=== PATIENT | male | born 1955 | race Caucasian/White ===

== ENCOUNTER → 2016-03-15 | Outpatient (CLI) | payer OTHER, MEDICARE ==
[2016-03-15 13:15] LABS: BASO % 0.3 %; BASO ABS # 0.03 K/uL (0-0.2); COMPLETE YES; EOS % 1.1 %; HEMATOCRIT 49.4 % (42-52); IG% 0.2 %; LYMPH % 17.7 %; MEAN CELL VOLUME 99.8 fL (80-100); MEAN CORPUSCULAR HEMOGLOBIN 33.3 pg (25-34); MEAN CORPUSCULAR HGB CONC 33.4 g/dl (32-36); MEAN PLATELET VOLUME 11.8 fL (7.4-10.4); MONO % 9.3 %; NEUT % 71.4 %; PLATELET COUNT 214 K/uL (130-400); RED BLOOD COUNT 4.95 M/uL (4.7-6.1); WHITE BLOOD COUNT 9.62 K/uL (4.8-10.8)
[2016-03-15 13:31] LABS: ALT/SGPT 24 U/L (12-78); AST/SGOT 15 U/L (15-37); BLOOD UREA NITROGEN 23 mg/dl (7-18); BUN/CREATININE RATIO 21.2 (10-20); CALCIUM 9.3 mg/dl (8.5-10.1); CARBON DIOXIDE 36 mmol/L (21-32); CHLORIDE 102 mmol/L (98-107); GLUCOSE 126 mg/dl (70-99); POTASSIUM 4.2 mmol/L (3.5-5.1); SODIUM 142 mmol/L (136-145); URIC ACID 3.3 mg/dl (2.6-7.2)
[2016-03-15 13:36] LABS: CHOLESTEROL 152 mg/dl (0-200); CHOLESTEROL/HDL RATIO 4.3; HDL CHOLESTEROL 35 mg/dl; LDL CHOLESTEROL CALCULATED 92 mg/dl; TRIGLYCERIDES 123 mg/dl (0-150); VERY LOW DENSITY LIPOPROT CALC 25 mg/dl
== END | disposition home or self-care (01) ==
LOC: C.LABMFLN 11:07
PROVIDERS: ATTEND Family Medicine
DX: I10 Essential (primary) hypertension (principal); I48.91 Unspecified atrial fibrillation; M10.9 Gout, unspecified; E78.00 Pure hypercholesterolemia, unspecified; Z12.5 Encounter for screening for malignant neoplasm of prostate

== ENCOUNTER → 2016-03-25 | Outpatient (CLI) | payer OTHER, MEDICARE ==
[2016-03-25 13:52] LABS: ESTIMATED AVERAGE GLUCOSE 146 mg/dl; HA1C FLAG Normal (Normal)
== END | disposition home or self-care (01) ==
LOC: C.LABMFLN 08:04
PROVIDERS: ATTEND Family Medicine
DX: R73.09 Other abnormal glucose (principal)

== ENCOUNTER → 2016-03-31 | Outpatient (CLI) | payer OTHER, MEDICARE ==
[2016-03-31 18:20] LABS: RATIO 76.5 mcg/mg (0-30.0)
== END | disposition home or self-care (01) ==
LOC: C.LABMFLN 11:16
PROVIDERS: ATTEND Family Medicine
DX: E11.9 Type 2 diabetes mellitus without complications (principal)

== ENCOUNTER → 2016-09-13 | Outpatient (CLI) | payer OTHER, MEDICARE ==
[2016-09-13 18:17] LABS: ALT/SGPT 22 U/L (12-78); AST/SGOT 16 U/L (15-37); BLOOD UREA NITROGEN 33 mg/dl (7-18); BUN/CREATININE RATIO 23.8 (10-20); CALCIUM 9.7 mg/dl (8.5-10.1); CARBON DIOXIDE 32 mmol/L (21-32); CHLORIDE 103 mmol/L (98-107); GLUCOSE 91 mg/dl (70-99); POTASSIUM 4.2 mmol/L (3.5-5.1); SODIUM 140 mmol/L (136-145)
[2016-09-13 18:18] LABS: BASO % 0.5 %; BASO ABS # 0.05 K/uL (0-0.2); COMPLETE YES; EOS % 1.4 %; HEMATOCRIT 45.1 % (42-52); IG% 0.1 %; LYMPH % 25.1 %; LYMPH ABS # 2.34 K/uL (1.2-3.4); MEAN CELL VOLUME 98.3 fL (80-100); MEAN CORPUSCULAR HEMOGLOBIN 32.7 pg (25-34); MEAN CORPUSCULAR HGB CONC 33.3 g/dl (32-36); MEAN PLATELET VOLUME 11.6 fL (7.4-10.4); MONO % 10.3 %; NEUT % 62.6 %; PLATELET COUNT 245 K/uL (130-400); RED BLOOD COUNT 4.59 M/uL (4.7-6.1); WHITE BLOOD COUNT 9.34 K/uL (4.8-10.8)
[2016-09-13 18:19] LABS: ALB/GLOB RATIO 1.1 (0.9-2); ALKALINE PHOSPHATASE 101 U/L (45-117); CHOLESTEROL 181 mg/dl (0-200); CHOLESTEROL/HDL RATIO 4.6; HDL CHOLESTEROL 39 mg/dl; LDL CHOLESTEROL CALCULATED 125 mg/dl; TRIGLYCERIDES 85 mg/dl (0-150); VERY LOW DENSITY LIPOPROT CALC 17 mg/dl
[2016-09-14 06:09] LABS: ESTIMATED AVERAGE GLUCOSE 126 mg/dl; HA1C FLAG Normal (Normal)
== END | disposition home or self-care (01) ==
LOC: C.LABMFLN 13:20
PROVIDERS: ATTEND Family Medicine
DX: I10 Essential (primary) hypertension (principal); M10.9 Gout, unspecified; E78.00 Pure hypercholesterolemia, unspecified; E11.9 Type 2 diabetes mellitus without complications; I48.91 Unspecified atrial fibrillation

== ENCOUNTER → 2017-03-25 | Outpatient (CLI) | payer OTHER, MEDICARE ==
[2017-03-25 12:31] LABS: BASO % 0.5 %; BASO ABS # 0.04 K/uL (0-0.2); EOS % 1.9 %; EOS ABS # 0.15 K/uL (0-0.5); HEMATOCRIT 47.1 % (42-52); HEMOGLOBIN 15.7 g/dL (14.0-18.0); IG# 0.02 K/uL (0.00-0.02); LYMPH % 20.9 %; LYMPH ABS # 1.66 K/uL (1.2-3.4); MEAN CELL VOLUME 98.1 fL (80-100); MEAN CORPUSCULAR HEMOGLOBIN 32.7 pg (25-34); MEAN CORPUSCULAR HGB CONC 33.3 g/dl (32-36); MEAN PLATELET VOLUME 12.3 fL (7.4-10.4); MONO % 10.3 %; MONO ABS # 0.82 K/uL (0.11-0.59); NEUT % 66.1 %; NEUT ABS # 5.24 K/uL (1.4-6.5); PLATELET COUNT 221 K/uL (130-400); RED CELL DISTRIBUTION WIDTH CV 15.9 % (11.5-14.5); WHITE BLOOD COUNT 7.93 K/uL (4.8-10.8)
[2017-03-25 13:03] LABS: ALBUMIN 3.9 gm/dl (3.4-5.0); ALT/SGPT 24 U/L (12-78); AST/SGOT 14 U/L (15-37); BLOOD UREA NITROGEN 31 mg/dl (7-18); CALCIUM 9.3 mg/dl (8.5-10.1); CARBON DIOXIDE 33 mmol/L (21-32); CREATININE 1.11 mg/dl (0.60-1.40); GLUCOSE 96 mg/dl (70-99); POTASSIUM 4.2 mmol/L (3.5-5.1); SODIUM 138 mmol/L (136-145)
[2017-03-25 13:08] LABS: HEMOGLOBIN A1C 5.6 % (4.5-5.6)
[2017-03-25 13:11] LABS: ALKALINE PHOSPHATASE 105 U/L (45-117); CHOLESTEROL 162 mg/dl (0-200); LDL CHOLESTEROL CALCULATED 109 mg/dl; TOTAL PROTEIN 7.5 gm/dl (6.4-8.2)
[2017-03-25 13:49] LABS: CREATININE RANDOM URINE < 13.0 mg/dl
== END | disposition home or self-care (01) ==
LOC: C.LABMFLN 08:56
PROVIDERS: ATTEND Family Medicine
DX: I10 Essential (primary) hypertension (principal); I48.91 Unspecified atrial fibrillation; E78.00 Pure hypercholesterolemia, unspecified; M10.9 Gout, unspecified; E11.9 Type 2 diabetes mellitus without complications; Z12.5 Encounter for screening for malignant neoplasm of prostate

== ENCOUNTER → 2017-09-28 | Outpatient (CLI) | payer OTHER, MEDICARE ==
[2017-09-28 12:59] LABS: HEMOGLOBIN A1C 5.7 % (4.5-5.6)
[2017-09-28 13:03] LABS: ALBUMIN 4.2 gm/dl (3.4-5.0); ALKALINE PHOSPHATASE 88 U/L (45-117); ALT/SGPT 23 U/L (12-78); AST/SGOT 20 U/L (15-37); BLOOD UREA NITROGEN 32 mg/dl (7-18); CALCIUM 9.7 mg/dl (8.5-10.1); CARBON DIOXIDE 33 mmol/L (21-32); CHOLESTEROL 167 mg/dl (0-200); CREATININE 1.22 mg/dl (0.60-1.40); GLUCOSE 92 mg/dl (70-99); LDL CHOLESTEROL CALCULATED 110 mg/dl; POTASSIUM 4.2 mmol/L (3.5-5.1); SODIUM 141 mmol/L (136-145); TOTAL PROTEIN 7.4 gm/dl (6.4-8.2); URIC ACID 3.3 mg/dl (2.6-7.2)
== END | disposition home or self-care (01) ==
LOC: C.LABMFLN 08:34
PROVIDERS: ATTEND Family Medicine
DX: I10 Essential (primary) hypertension (principal); I48.91 Unspecified atrial fibrillation; M10.9 Gout, unspecified; E78.00 Pure hypercholesterolemia, unspecified; E11.9 Type 2 diabetes mellitus without complications

== ENCOUNTER 2022-12-09 09:03 | Inpatient (IN) ==
[2022-12-09] MEDS ORDERED: methylPREDNISolone 125 MG/2 ML VIAL IV STA (09:25)
[2022-12-09] MEDS ORDERED: ALBUT/IPRATROP 3MG/0.5MG NEB 3 ML VIAL NEB STA (09:25)
--- NOTE | 2022-12-09 10:03 | Emergency Department Note ---
Impression & Plan Acute respiratory failure with hypoxia and hypercapnia, Community acquired pneumonia, Acute exacerbation of chronic obstructive airways disease, Congestive heart failure, Chronic a-fib ED Provider Note Provider: Jeovanny Hoyt MD DATE OF SERVICE: 12/09/2022 CHIEF COMPLAINT: Low oxygen levels, shortness of breath HISTORY OF PRESENT ILLNESS: Patient is a 67-year-old gentleman history of type 2 diabetes, A-fib on Xarelto, and COPD not on home oxygen presenting today noting over the past week has had increasing cough and some shortness of breath. Denies any chest pain or abdominal pain. No nausea vomiting or diarrhea reported. Chronic sinus drainage but denies any significant congestion or sore throat or fevers. No sick contacts reported. States he checked his oxygen this morning it was low and talked with his doctors office and came here for evaluation. Former smoker but did quit sometime ago. Uses a rescue inhaler but he denies any regular daily breathing treatments. Has been taking his medications. Has a little bit of swelling of the legs but denies significant increase or weight gain. Did take his medicines this morning including his Xarelto PAST MEDICAL HISTORY: As noted above MEDICATIONS: Reviewed home medication list at bedside SOCIAL HISTORY: , former smoker PHYSICAL EXAM: GENERAL: alert and oriented in no acute distress on stretcher Head: normocephalic and atraumatic EYES: No injection, discharge or icterus. NECK: Trachea midline. Supple. ENT: Mucous membranes pink and moist. Pharynx without erythema or exudate. LUNGS: Airway patent. No retractions. Breath sounds diminished with poor air exchange HEART: Regular rate and rhythm. No chest wall tenderness ABDOMEN: Soft and non-tender, without guarding or rebound. SKIN: Acyanotic, warm, dry, without rashes EXTREMITIES: Without tenderness or deformity with 1-2+ lower extremity edema. NEUROLOGICAL: No focal deficits. No aphasia. No facial droop or slurred speech. Ambulatory. EK beats minute atrial fibrillation. No acute ST segment elevation with some respiratory baseline artifact. QTc 462. No PVCs noted. CONTINUOUS CARDIAC MONITORING: was ordered and showed a heart rate of 90s-100s bpm in atrial fibrillation Patient's laboratory studies and imaging reviewed. Differential includes Reactive airway disease, pneumonia, pneumothorax, COPD, CHF, infections, cardiac ischemia, pulmonary embolism, musculoskeletal, gastrointestinal, as well as other pathologies. IMPRESSION/MEDICAL DECISION MAKING: States compliance with Xarelto and with his long-term anticoagulation lower suspicion for PE. Does have a history of CHF as well as COPD that may be contributing. Hypoxic into the 80s on room air and even on nasal cannula supplementation. Not moving much air and given this given a DuoNeb and a bit of steroids in case there is some COPD component. Respiratory viral panel sent. Lab work obtained. Chest x-ray obtained. Denies fevers but cannot exclude pneumonia based on history. My review the x-ray and radiology report consistent with cardiomegaly and p ossibly some pulmonary edema. There is some left mid to basilar findings questioning edema versus pneumonia. Patient not significantly anemic. Lactate is normal. White blood cell count of 10 is within normal limits. Some neutrophil predominance noted however. Procalcitonin sent. Still somewhat hypoxic given the question of some fluid overload we will give a dose of some Lasix and placed on BiPAP as he is still hypoxic. Given his hypoxia requiring noninvasive ventilation, will cover with antibiotics. VBG returns with a pH of 7.36 and a CO2 of 60. Not acidotic but slight elevated CO2. No findings of electrolyte abnormality or renal dysfunction. Troponin within normal limits. BNP somewhat elevated just over 200 but not severely so. Urinalysis negative. Not had real improvement with nebulizer here and again suspicion for a large component of COPD is diminishing my estimation. Again we will diurese lightly and started on BiPAP as well as cover with antibiotics. Discussed with him and his family the need for further care here at the hospital given his hypoxia. Respiratory viral panel returns negative. DIAGNOSIS: Hypoxic respiratory failure, acute CHF, COPD exacerbation acute, DISPOSITION: Hospitalist will evaluate Patient was agreeable with this plan. Critical Care I have personally spent 36 minutes of critical care time in the direct m anagement of this patient. This includes bedside care, interpretation of diagnostic studies, and testing, discussion with consultants, patient, and family members, and other required patient management activities. These 36 minutes is in excess of all separately billable procedures. 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 Venous insufficiency Surgical History H/O total hip arthroplasty History of vasectomy Previous back surgery Status post right hip replacement Family History Mother Coronary heart disease Hypertension Diabetes Denies family history of Ovarian cancer Prostate cancer Myocardial infarction Breast cancer Colorectal cancer Social History Smoking Status: Never smoker Age Started Using Tobacco: 10; Age Quit Using Tobacco: 48; Second Hand Exposure: Yes; Do You Dip or Chew Tobacco: No; Hx Alcohol Use: No (Four drinks per week) Hx Substance Use: No Preferred Language: Slovak Visual Impairment: No Limitations First Aid Teacher Required: No marital status: Current Living Situation: Family Current Living Situation Comment: spouse and brother in law current occupational status: disabled Feels Safe at Home: Yes Childhood Exposure to Second-Hand Smoke: Yes Diet: DASH caffeine: Yes Seatbelt Use: always Sunscreen Use: No Allergies Allergies Allergy/AdvReac Type Severity Reaction Status Date / Time dicyclomine [From Bentyl] Allergy Verified 11/17/22 07:57 Home Meds Previous Rx's Medication Instructions Recorded albuterol sulfate 90 mcg/actuation 2 inh inhalation Q4H PRN shortness 09/25/20 breath activated powder inhaler of breath or wheezing #1 ea blood sugar diagnostic ([employer] #100 ea 01/04/22 Ultra Test strips) lancets 33 gauge ([employer] Delica #100 ea 01/04/22 Lancets) allopurinol 300 mg tablet 300 mg PO BID #180 tabs 04/06/22 atorvastatin 10 mg tablet 10 mg PO QPM #90 tabs 04/06/22 diltiazem HCl 120 mg 120 mg PO DAILY #90 caps 04/06/22 capsule,extended release 24 hr furosemide 40 mg tablet 40 mg PO DAILY #90 tabs 04/06/22 lisinopril 40 mg tablet 40 mg PO DAILY #90 tabs 04/06/22 metformin 500 mg tablet 500 mg PO BID #180 tabs 04/06/22 metoprolol tartrate 100 mg tablet 100 mg PO BID #180 tabs 04/06/22 rivaroxaban 20 mg tablet (Xarelto) 20 mg PO DAILY #90 tabs 05/04/22 Results & Data (ED) Vital Signs Vital Signs - 24 hr 12/09/22 09:07 12/09/22 09:47 12/09/22 10:02 Temperature 36.8 C Temperature Source Temporal Artery Scan Pulse Rate 100 H 87 Pulse Rate [Apical] Pulse Rate from SpO2 Sensor Respiratory Rate 18 Respiratory Effort / Characteristics Respiratory Depth Respiratory Pattern Blood Pressure 130/85 Blood Pressure [Right Arm] Blood Pressure Mean 100 Blood Pressure Mean [Right Arm] Pulse Oximetry 72 L Oxygen Delivery Method Room Air Oxymask Oxygen Flow Rate 12 Fraction of Inspired Oxygen Sepsis Recent Fever Within 48 Hours No Sepsis New/Unexplained Change in Mental Status No Sepsis Action Taken by Nursing No Action Required Pulse Oximetry Post Tiitration 85 L 12/09/22 10:02 12/09/22 10:03 12/09/22 10:06 Temperature Temperature Source Pulse Rate 93 H Pulse Rate [Apical] 92 H Pulse Rate from SpO2 Sensor Respiratory Rate 24 24 Respiratory Effort / Characteristics Non-Labored Spontaneous Non-Labored Spontaneous Respiratory Depth Normal Respiratory Pattern Regular Blood Pressure Blood Pressure [Right Arm] 142/90 H Blood Pressure Mean Blood Pressure Mean [Right Arm] 107 Pulse Oximetry 89 L 89 L Oxygen Delivery Method Nebulizer Nebulizer Oxygen Flow Rate Fraction of Inspired Oxygen Sepsis Recent Fever Within 48 Hours Sepsis New/Unexplained Change in Mental Status Sepsis Action Taken by Nursing Pulse Oximetry Post Tiitration 12/09/22 09:29 12/09/22 09:30 12/09/22 09:59 Temperature Temperature Source Pulse Rate 94 H 77 97 H Pulse Rate [Apical] Pulse Rate from SpO2 Sensor 88 79 91 H Respiratory Rate 22 21 26 H Respiratory Effort / Characteristics Respiratory Depth Respiratory Pattern Blood Pressure Blood Pressure [Right Arm] Blood Pressure Mean Blood Pressure Mean [Right Arm] Pulse Oximetry 85 L 86 L 88 L Oxygen Delivery Method Oxymask Oxymask Nebulizer Oxygen Flow Rate 12 12 8 Fraction of Inspired Oxygen Sepsis Recent Fever Within 48 Hours Sepsis New/Unexplained Change in Mental Status Sepsis Action Taken by Nursing Pulse Oximetry Post Tiitration 12/09/22 09:59 12/09/22 10:00 12/09/22 10:00 Temperature Temperature Source Pulse Rate 87 Pulse Rate [Apical] Pulse Rate from SpO2 Sensor 88 Respiratory Rate 22 Respiratory Effort / Characteristics Respiratory Depth Respiratory Pattern Blood Pressure 147/80 H 142/90 H Blood Pressure [Right Arm] Blood Pressure Mean 116 99 Blood Pressure Mean [Right Arm] Pulse Oximetry 86 L Oxygen Delivery Method Oxymask Oxygen Flow Rate 12 Fraction of Inspired Oxygen Sepsis Recent Fever Within 48 Hours Sepsis New/Unexplained Change in Mental Status Sepsis Action Taken by Nursing Pulse Oximetry Post Tiitration 12/09/22 10:41 12/09/22 10:30 12/09/22 10:30 Temperature Temperature Source Pulse Rate 96 H 90 Pulse Rate [Apical] Pulse Rate from SpO2 Sensor 97 H Respiratory Rate 28 H 26 H Respiratory Effort / Characteristics Spontaneous Respiratory Depth Respiratory Pattern Blood Pressure 145/86 H Blood Pressure [Right Arm] Blood Pressure Mean 113 Blood Pressure Mean [Right Arm] Pulse Oximetry 94 87 L Oxygen Delivery Method Oxymask Oxygen Flow Rate 12 Fraction of Inspired Oxygen 50 Sepsis Recent Fever Within 48 Hours Sepsis New/Unexplained Change in Mental Status Sepsis Action Taken by Nursing Pulse Oximetry Post Tiitration Laboratory Data 12/09/22 09:50 12/09/22 09:50 Lab Results 12/09/22 12/09/22 12/09/22 Range/Units 09:50 09:50 09:50 WBC 10.08 (4.8-10.8) K/ul RBC 4.17 L (4.70-6.10) M/uL Hgb 13.8 L (14.0-18.0) g/dl Hct 41.8 L (42.0-52.0) % MCV 100.2 H (80.0-100.0) fL MCH 33.1 (25.0-34.0) pg MCHC 33.0 (32.0-36.0) g/dL RDW Std Deviation 58.8 H (36.4-46.3) fL RDW Coeff of Marce 15.9 H (11.5-14.5) % Plt Count 235 (130-400) K/uL MPV 11.2 (9.4-12.4) fL Immature Gran % (Auto) 0.5 % Neut % (Auto) 85.5 % Lymph % (Auto) 6.7 % Real % (Auto) 6.6 % Eos % (Auto) 0.4 % Baso % (Auto) 0.3 % Neut # (Auto) 8.61 H (1.40-6.50) K/uL Lymph # (Auto) 0.68 L (1.20-3.40) K/uL Real # (Auto) 0.67 H (0.11-0.59) K/uL Eos # (Auto) 0.04 (0.00-0.50) K/uL Baso # (Auto) 0.03 (0.00-0.20) K/uL Immature Gran # (Auto) 0.05 (0.01-0.20) K/uL PT 18.4 H (9.0-12.0) Seconds INR 1.7 H (0.9-1.1) APTT 51.5 H* (21.0-31.0) Seconds PTT Ratio 1.8 VBG pH (7.36-7.41) VBG pCO2 (38-50) mmHg VBG pO2 mmHg VBG HCO3 mmol/L VBG O2 Saturation % VBG Base Excess mEq/L Sodium (136-145) mmol/L Potassium (3.5-5.1) mmol/L Chloride (98-107) mmol/L Carbon Dioxide (21-32) mmol/L Anion Gap (3-11) BUN (6-23) mg/dl Creatinine (0.6-1.4) mg/dl Est Cr Clr Drug Dosing ml/min Est GFR ( Amer) ml/min Est GFR (Non-Af Amer) ml/min BUN/Creatinine Ratio (10-20) Glucose (70-99(Fasting)) mg/dl Lactate 1.2 (0.4-2.0) mmol/L Calcium (8.6-10.3) mg/dl Magnesium (1.7-2.4) mg/dl Total Bilirubin (0.2-1.0) mg/dl AST (13-39) U/L ALT (7-52) U/L Alkaline Phosphatase (34-104) U/L Troponin I High Sens (0-20) pg/ml B-Natriuretic Peptide (0-100) pg/ml Total Protein (6.0-8.3) gm/dl Albumin (3.4-5.0) gm/dl Globulin (2.5-4.0) gm/dl Albumin/Globulin Ratio (0.9-2) Procalcitonin (0-0.5) ng/ml Urine Color Urine Appearance (Clear) Urine pH (4.5-7.5) Ur Specific [place] (1.000-1.030) Urine Protein (Negative) Urine Glucose (UA) (Negative) Urine Ketones (Negative) Urine Blood (Negative) Urine Nitrite (Negative) Urine Bilirubin (Negative) Urine Urobilinogen (Negative) Ur Leukocyte Esterase (Negative) Adenovirus (PCR) (NotDetected) B. pertussis DNA (PCR) (NotDetected) B.parapertussis DNA PCR (NotDetected) C. pneumoniae DNA (PCR) (NotDetected) Coronavirus OC43 (PCR) (NotDetected) Coronavirus HKU1 (PCR) (NotDetected) Coronavirus 229E (PCR) (NotDetected) SARS-CoV-2 (PCR) (NotDetected) Coronavirus NL63 (PCR) (NotDetected) Human Metapneumovir PCR (NotDetected) Influenza Type A (PCR) (NotDetected) Influenza Type B (PCR) (NotDetected) M. pneumoniae (PCR) (NotDetected) Parainfluenza 1 (PCR) (NotDetected) Parainfluenza 2 (PCR) (NotDetected) Parainfluenza 3 (PCR) (NotDetected) Parainfluenza 4 (PCR) (NotDetected) RSV (PCR) (NotDetected) Entero/Rhino (PCR) (NotDetected) 12/09/22 12/09/22 12/09/22 Range/Units 09:50 09:50 09:50 WBC (4.8-10.8) K/ul RBC (4.70-6.10) M/uL Hgb (14.0-18.0) g/dl Hct (42.0-52.0) % MCV (80.0-100.0) fL MCH (25.0-34.0) pg MCHC (32.0-36.0) g/dL RDW Std Deviation (36.4-46.3) fL RDW Coeff of Marce (11.5-14.5) % Plt Count (130-400) K/uL MPV (9.4-12.4) fL Immature Gran % (Auto) % Neut % (Auto) % Lymph % (Auto) % Real % (Auto) % Eos % (Auto) % Baso % (Auto) % Neut # (Auto) (1.40-6.50) K/uL Lymph # (Auto) (1.20-3.40) K/uL Real # (Auto) (0.11-0.59) K/uL Eos # (Auto) (0.00-0.50) K/uL Baso # (Auto) (0.00-0.20) K/uL Immature Gran # (Auto) (0.01-0.20) K/uL PT (9.0-12.0) Seconds INR (0.9-1.1) APTT (21.0-31.0) Seconds PTT Ratio VBG pH (7.36-7.41) VBG pCO2 (38-50) mmHg VBG pO2 mmHg VBG HCO3 mmol/L VBG O2 Saturation % VBG Base Excess mEq/L Sodium 141 (136-145) mmol/L Potassium 3.8 (3.5-5.1) mmol/L Chloride 103 (98-107) mmol/L Carbon Dioxide 32 (21-32) mmol/L Anion Gap 6 (3-11) BUN 28 H (6-23) mg/dl Creatinine 0.98 (0.6-1.4) mg/dl Est Cr Clr Drug Dosing 103.9 ml/min Est GFR ( Amer) 90.8 ml/min Est GFR (Non-Af Amer) 78.4 ml/min BUN/Creatinine Ratio 28.6 H (10-20) Glucose 137 H (70-99(Fasting)) mg/dl Lactate (0.4-2.0) mmol/L Calcium 9.5 (8.6-10.3) mg/dl Magnesium 2.0 (1.7-2.4) mg/dl Total Bilirubin 1.3 H (0.2-1.0) mg/dl AST 15 (13-39) U/L ALT 15 (7-52) U/L Alkaline Phosphatase 99 (34-104) U/L Troponin I High Sens 7.5 (0-20) pg/ml B-Natriuretic Peptide 212 H (0-100) pg/ml Total Protein 7.2 (6.0-8.3) gm/dl Albumin 3.8 (3.4-5.0) gm/dl Globulin 3.4 (2.5-4.0) gm/dl Albumin/Globulin Ratio 1.1 (0.9-2) Procalcitonin 0.07 (0-0.5) ng/ml Urine Color Urine Appearance (Clear) Urine pH (4.5-7.5) Ur Specific [place] (1.000-1.030) Urine Protein (Negative) Urine Glucose (UA) (Negative) Urine Ketones (Negative) Urine Blood (Negative) Urine Nitrite (Negative) Urine Bilirubin (Negative) Urine Urobilinogen (Negative) Ur Leukocyte Esterase (Negative) Adenovirus (PCR) (NotDetected) B. pertussis DNA (PCR) (NotDetected) B.parapertussis DNA PCR (NotDetected) C. pneumoniae DNA (PCR) (NotDetected) Coronavirus OC43 (PCR) (NotDetected) Coronavirus HKU1 (PCR) (NotDetected) Coronavirus 229E (PCR) (NotDetected) SARS-CoV-2 (PCR) (NotDetected) Coronavirus NL63 (PCR) (NotDetected) Human Metapneumovir PCR (NotDetected) Influenza Type A (PCR) (NotDetected) Influenza Type B (PCR) (NotDetected) M. pneumoniae (PCR) (NotDetected) Parainfluenza 1 (PCR) (NotDetected) Parainfluenza 2 (PCR) (NotDetected) Parainfluenza 3 (PCR) (NotDetected) Parainfluenza 4 (PCR) (NotDetected) RSV (PCR) (NotDetected) Entero/Rhino (PCR) (NotDetected) 12/09/22 12/09/22 12/09/22 Range/Units 10:08 10:12 10:25 WBC (4.8-10.8) K/ul RBC (4.70-6.10) M/uL Hgb (14.0-18.0) g/dl Hct (42.0-52.0) % MCV (80.0-100.0) fL MCH (25.0-34.0) pg MCHC (32.0-36.0) g/dL RDW Std Deviation (36.4-46.3) fL RDW Coeff of Marce (11.5-14.5) % Plt Count (130-400) K/uL MPV (9.4-12.4) fL Immature Gran % (Auto) % Neut % (Auto) % Lymph % (Auto) % Real % (Auto) % Eos % (Auto) % Baso % (Auto) % Neut # (Auto) (1.40-6.50) K/uL Lymph # (Auto) (1.20-3.40) K/uL Real # (Auto) (0.11-0.59) K/uL Eos # (Auto) (0.00-0.50) K/uL Baso # (Auto) (0.00-0.20) K/uL Immature Gran # (Auto) (0.01-0.20) K/uL PT (9.0-12.0) Seconds INR (0.9-1.1) APTT (21.0-31.0) Seconds PTT Ratio VBG pH 7.36 (7.36-7.41) VBG pCO2 60 H (38-50) mmHg VBG pO2 31 mmHg VBG HCO3 34 mmol/L VBG O2 Saturation < 60.0 % VBG Base Excess 6.5 mEq/L Sodium (136-145) mmol/L Potassium (3.5-5.1) mmol/L Chloride (98-107) mmol/L Carbon Dioxide (21-32) mmol/L Anion Gap (3-11) BUN (6-23) mg/dl Creatinine (0.6-1.4) mg/dl Est Cr Clr Drug Dosing ml/min Est GFR ( Amer) ml/min Est GFR (Non-Af Amer) ml/min BUN/Creatinine Ratio (10-20) Glucose (70-99(Fasting)) mg/dl Lactate (0.4-2.0) mmol/L Calcium (8.6-10.3) mg/dl Magnesium (1.7-2.4) mg/dl Total Bilirubin (0.2-1.0) mg/dl AST (13-39) U/L ALT (7-52) U/L Alkaline Phosphatase (34-104) U/L Troponin I High Sens (0-20) pg/ml B-Natriuretic Peptide (0-100) pg/ml Total Protein (6.0-8.3) gm/dl Albumin (3.4-5.0) gm/dl Globulin (2.5-4.0) gm/dl Albumin/Globulin Ratio (0.9-2) Procalcitonin (0-0.5) ng/ml Urine Color Yellow Urine Appearance Clear (Clear) Urine pH 5.0 (4.5-7.5) Ur Specific [place] 1.007 (1.000-1.030) Urine Protein Negative (Negative) Urine Glucose (UA) Negative (Negative) Urine Ketones Negative (Negative) Urine Blood Negative (Negative) Urine Nitrite Negative (Negative) Urine Bilirubin Negative (Negative) Urine Urobilinogen Negative (Negative) Ur Leukocyte Esterase Negative (Negative) Adenovirus (PCR) Not Detected (NotDetected) B. pertussis DNA (PCR) Not Detected (NotDetected) B.parapertussis DNA PCR Not Detected (NotDetected) C. pneumoniae DNA (PCR) Not Detected (NotDetected) Coronavirus OC43 (PCR) Not Detected (NotDetected) Coronavirus HKU1 (PCR) Not Detected (NotDetected) Coronavirus 229E (PCR) Not Detected (NotDetected) SARS-CoV-2 (PCR) Not Detected (NotDetected) Coronavirus NL63 (PCR) Not Detected (NotDetected) Human Metapneumovir PCR Not Detected (NotDetected) Influenza Type A (PCR) Not Detected (NotDetected) Influenza Type B (PCR) Not Detected (NotDetected) M. pneumoniae (PCR) Not Detected (NotDetected) Parainfluenza 1 (PCR) Not Detected (NotDetected) Parainfluenza 2 (PCR) Not Detected (NotDetected) Parainfluenza 3 (PCR) Not Detected (NotDetected) Parainfluenza 4 (PCR) Not Detected (NotDetected) RSV (PCR) Not Detected (NotDetected) Entero/Rhino (PCR) Not Detected (NotDetected) Administered Medications Insulin Aspart (Insulin Aspart Per Unit Charge) 0 units SC ACHS IVETH Stop: 01/08/23 11:29 Last Admin: 12/09/22 12:53 Dose: Not Given Documented By: LONNY Co-signed By: TBS Discontinued Medications Albuterol (Albut/Ipratrop 3mg/0.5mg Neb 3 Ml Vial) 3 ml NEB NOW STA; Protocol Stop: 12/09/22 09:26 Last Admin: 12/09/22 10:00 Dose: 3 ml Documented By: IRAJ Doxycycline Hyclate (Doxycycline Hyclate 100 Mg Cap) 100 mg PO NOW STA Stop: 12/09/22 10:27 Last Admin: 12/09/22 10:35 Dose: 100 mg Documented By: IRAJ Furosemide (Furosemide 40 Mg/4 Ml Vial) 40 mg IV ONE ONE Stop: 12/09/22 10:28 Last Admin: 12/09/22 10:36 Dose: 40 mg Documented By: IRAJ Ceftriaxone Sodium (Rocephin) 2,000 mg in 50 mls @ 100 mls/hr IV NOW STA Stop: 12/09/22 10:55 Last Infusion: 12/09/22 12:00 Dose: 0 mls/hr Documented By: Admin: 12/09/22 10:36 Dose: 100 mls/hr Documented By: IRAJ Methylprednisolone (Methylprednisolone 125 Mg/2 Ml Vial) 60 mg IV NOW STA Stop: 12/09/22 09:26 Last Admin: 12/09/22 10:01 Dose: 60 mg Documented By: IRAJ Imaging Data Radiologist's Impression: Chest X-Ray 12/09/22 09:25 XR chest 1V portable HISTORY: 67 years-old Male Dyspnea acute shortness of breath COMPARISON: None TECHNIQUE: AP view of the chest FINDINGS: Cardiac silhouette is enlarged. Mild right hemidiaphragmatic elevation. No pneumothorax or large pleural effusion. Pulmonary vascular congestion with interstitial coarsening. Ill-defined patchy left midlung and left basilar airspace opacities. Left midlung calcified granuloma. Partially imaged lumbar spinal fusion hardware. Degenerative changes of the shoulders and spine. IMPRESSION: 1. Cardiomegaly with pulmonary vascular congestion and questioned mild pulmonary edema. 2. Mild patchy left midlung and left basilar airspace opacities may represent asymmetric alveolar pulmonary edema versus pneumonia. ACT 112: Negative or not required by law. The above report was generated using voice recognition software. It may contain grammatical, syntax or spelling errors. Electronically signed by: Renan Gray M.D. 12/09/2022 10:18 AM Discharge Plan Visit Data Chief Complaint: Shortness of Breath/Dyspnea Stated Complaint: LOW 02,SOB,DOC REF ED Provider: Jeovanny Hoyt Discharge Problem: Acute respiratory failure with hypoxia and hypercapnia, Community acquired pneumonia, Acute exacerbation of chronic obstructive airways disease, Congestive heart failure, Chronic a-fib Patient Disposition: Being Evaluated by Hospitalist Discharge Instructions Interventions: ED Discharge Assessment Last Done: 12/09/22 14:06
[2022-12-09 10:15] LABS: Basophils # (auto) 0.03 K/uL (0.00-0.20); Basophils % (auto) 0.3 %; Eosinophils # (auto) 0.04 K/uL (0.00-0.50); Eosinophils % (auto) 0.4 %; Hematocrit (blood only) 41.8 % (42.0-52.0); Hemoglobin 13.8 g/dl (14.0-18.0); Immature Granulocytes # (auto) 0.05 K/uL (0.01-0.20); Immature Granulocytes % (auto) 0.5 %; Lymphocytes # (auto) 0.68 K/uL (1.20-3.40); Lymphocytes % (auto) 6.7 %; Mean Corpuscular Hemoglobin 33.1 pg (25.0-34.0); Mean Corpuscular Volume 100.2 fL (80.0-100.0); Mean Platelet Volume 11.2 fL (9.4-12.4); Monocytes # (auto) 0.67 K/uL (0.11-0.59); Monocytes % (auto) 6.6 %; Neutrophils # (auto) 8.61 K/uL (1.40-6.50); Neutrophils % (auto) 85.5 %; Platelet Count 235 K/uL (130-400); RDW Coefficient of Variation 15.9 % (11.5-14.5); RDW Standard Deviation 58.8 fL (36.4-46.3); Red Blood Count 4.17 M/uL (4.70-6.10); White Blood Count 10.08 K/ul (4.8-10.8)
--- NOTE | 2022-12-09 10:19 | XRay Report ---
XR chest 1V portable HISTORY: 67 years-old Male Dyspnea acute shortness of breath COMPARISON: None TECHNIQUE: AP view of the chest FINDINGS: Cardiac silhouette is enlarged. Mild right hemidiaphragmatic elevation. No pneumothorax or large pleu ral effusion. Pulmonary vascular congestion with interstitial coarsening. Ill-defined patchy left mid lung and left basilar airspace opacities. Left midlung calcified granuloma. Partially imaged lumbar s narciso fusion hardware. Degenerative changes of the shoulders and spine. IMPRESSION: 1. Cardiomegaly with pulmonary vascular congestion and questioned mild pulmonary edema. 2. Mild patchy left midlung and left basilar airspace opacities may represent asymmetric alveolar pul monary edema versus pneumonia. ACT 112: Negative or not required by law. The above report was generated using voice recognition software. It may contain grammatical, syntax o r spelling errors. Electronically signed by: Renan Gray M.D. 12/09/2022 10:18 AM
[2022-12-09] MEDS ORDERED: DOXYCYCLINE HYCLATE 100 MG CAP PO STA (10:26)
[2022-12-09] MEDS ORDERED: cefTRIAXone SODIUM 2,000 MG/50 ML BAG IV STA (10:26)
[2022-12-09] MEDS ORDERED: FUROSEMIDE 40 MG/4 ML VIAL IV ONE (10:27)
[2022-12-09 10:35] LABS: Base Excess VBG 6.5 mEq/L; HCO3 VBG 34 mmol/L; Oxygen Saturation VBG < 60.0 %; PCO2 VBG 60 mmHg (38-50); PO2 VBG 31 mmHg; pH VBG 7.36 (7.36-7.41)
[2022-12-09 10:35] LABS: Albumin Globulin Ratio 1.1 (0.9-2); Albumin Level 3.8 gm/dl (3.4-5.0); BUN Creatinine Ratio 28.6 (10-20); Bilirubin,Total 1.3 mg/dl (0.2-1.0); Calcium 9.5 mg/dl (8.6-10.3); Creatinine Clr Calc Pharmacy 103.9 ml/min; Est GFR (African American) 90.8 ml/min; Est GFR (Non-African American) 78.4 ml/min; Globulin 3.4 gm/dl (2.5-4.0); Potassium 3.8 mmol/L (3.5-5.1); Total Protein 7.2 gm/dl (6.0-8.3)
[2022-12-09 10:40] LABS: Appearance Urine Clear (Clear); Bilirubin Urine Negative (Negative); Blood Urine Negative (Negative); Color Urine Yellow; Glucose Urine UA Negative (Negative); Ketones Urine Negative (Negative); Leukocyte Esterase Urine Negative (Negative); Nitrite Urine Negative (Negative); Protein Urine Negative (Negative); Specific Gravity Urine 1.007 (1.000-1.030); Urobilinogen Urine Negative (Negative)
[2022-12-09 10:40] LABS: Troponin I High Sensitivity 7.5 pg/ml (0-20)
[2022-12-09 10:59] LABS: INR 1.7 (0.9-1.1); Partial Thromboplastin Ratio 1.8; Prothrombin Time 18.4 Seconds (9.0-12.0)
[2022-12-09 11:24] LABS: Adenovirus PCR Not Detected (NotDetected); Bordetella parapertussis PCR Not Detected (NotDetected); Bordetella pertussis PCR Not Detected (NotDetected); Chlamydia pneumoniae PCR Not Detected (NotDetected); Coronavirus 229E PCR Not Detected (NotDetected); Coronavirus CoV-2 (COVID19)PCR Not Detected (NotDetected); Coronavirus HKU1 PCR Not Detected (NotDetected); Coronavirus NL63 PCR Not Detected (NotDetected); Coronavirus OC43PCR Not Detected (NotDetected); Human Metapneumovirus PCR Not Detected (NotDetected); Influenza A PCR Not Detected (NotDetected); Influenza B PCR Not Detected (NotDetected); Mycoplasma pneumoniae PCR Not Detected (NotDetected); Parainfluenza Virus 1 PCR Not Detected (NotDetected); Parainfluenza Virus 2 PCR Not Detected (NotDetected); Parainfluenza Virus 3 PCR Not Detected (NotDetected); Parainfluenza Virus 4 PCR Not Detected (NotDetected); Respiratory Syncytial VirusPCR Not Detected (NotDetected); Rhinovirus/Enterovirus PCR Not Detected (NotDetected)
[2022-12-09] MEDS ORDERED: CARBOHYDRATES FOR HYPOGLYCEMIA PO PRN (11:26)
[2022-12-09] MEDS ORDERED: GLUCOSE 10 TAB/TUBE PO PRN (11:26)
[2022-12-09] MEDS ORDERED: GLUCOSE 40% GEL 15 GM TUBE PO PRN (11:26)
[2022-12-09] MEDS ORDERED: GLUCAGON FOR INJ 1 MG VIAL SQ PRN (11:26)
[2022-12-09] MEDS ORDERED: DEXTROSE 50% 50 ML SYRINGE IV PRN (11:26)
--- NOTE | 2022-12-09 11:30 | History & Physical Report ---
Date of Service December 09, 2022 Assessment & Plan (1) Acute respiratory failure with hypoxia and hypercapnia: Plan: -Admit to the PCU on tele and pulse oximetry -Currently stable on Bipap at 15/8, 50% FiO2 and 2L O2 -Presented to the ED with a week of progressive minimally productive cough, SOB, and hypoxia -Was saturating at 72% on RA on arrival, currently comfortable on Bipap; does not use Bipap or O2 during the day at baseline -At this time the most likely etiology of his AHRF with hypercapnia is mostly likely CAP with CXR showing a LLL consolidation -While he is without a leukocytosis and procal is WNL he is not wheezing and did not have improvement in his respiratory status with his home albuterol inhaler or DuoNeb in the ED to suggest COPD exacerbation. He is not significantly volume overloaded. He has some pulmonary vascular congestion on CXR but is without significant pulmonary edema or pleural effusions and is not volume overloaded on exam -Full respiratory biofire is also negative -No signs of DVT in the BL LEs or pleuritic chest pain, has been hemodynamically stable and has been taking his Xarelto, low suspicion for PE at this time -S/P ceftriaxone, doxycycline, 60 mg IV methylprednisolone, and 40 mg IV lasix in the ED -Will treat for both CAP and CHF exacerbation for now -Continue Ceftriaxone and doxycycline -Will keep on Bipap for now and obtain an ABG in 3 hrs, if improving will take him off Bipap -Prn O2 for SpO2 of 88-92%, incentive spirometry, flutter therapy -Patient had his 40 mg PO lasix today and received 40 mg IV lasix in the ED, will hold further diuretics today and continue with 40 mg IV lasix daily, leah rrow -Will not diurese aggressively as he is not significantly volume overloaded, aim for minimal net negative fluid balance for now -Will obtain TTE for further evaluation -Home xarelto for DVT PPX -HH/DMII diet with 2gm sodium restriction when off Bipap -AM CBC, CMP, mag, PT/INR (2) Elevated bilirubin: Plan: -Total bili elevated at 1.3 -Patient without abd discomfort, all other LFT's WNL -Continue to monitor for now (3) 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 Carvalho at the time of the admission History of Present Illness Chief Complaint: Hypoxia, cough, SOB Primary Care Provider: Nolan Soria MD Madhu is a 67 year old male with a PMH significant for COPD, Afib on xarelto, DMII, HTN, and AISHA on HS Bipap who presented to the [facility] ED on 12/09 with complaints of hypoxia on RA at home. In the ED he was noted to be saturating at 72% on RA but otherwise stable. Labs were significant for a lymphocyte count of 0.68, VBG with pH and Po2, WNL but with pCO2 of 60, total bili of 1.3, BNP 212 (no previous to compare), and full respiratory biofire still in process. Chest xray was read as 1. Cardiomegaly with pulmonary vascular congestion and questioned mild pulmonary edema. 2. Mild patchy left midlung and left basilar airspace opacities may represent asymmetric alveolar pulmonary edema versus pneumonia. The patient was given 60 mg IV methylp rednisolone, a DuoNeb treatment, ceftriaxone, doxycycline, and 40 mg IV Lasix. At the time of the exam the patient was sitting in bed in no acute distress, currently stable on Bipap at 15/8. he states that he had been in his normal state of health until he started to develop a minimally productive cough and progressive SOB over the past week. While he has a hx of COPD he denies a chronic cough at baseline. When asked, he states that he is unsure of the color of his sputum this week. He does not feel as though he has gained weight over this time and does try to limit his sodium and water intake. He denies significant increase in LE swelling, fever, chills, chest pain, hemoptysis, pleuritic chest pain, abd pain, nausea, vomiting, diarrhea, dysuria, hematuria, melena, and recent trauma. He has been taking all medications as prescribed and without recently missed doses. He did take his am doses of Xarelto, diltiazem, metoprolol, and 40 mg PO lasix today. He does not feeling as though he had any relief after his DuoNeb treatment, but is very comfortable on Bipap at this time. He has been using his HS bipap as prescribed. We discussed code status, he wishes to be a full code. Please refer to Dr. Carvalho's attestation for any changes in the treatment plan Allergies Allergy/AdvReac Type Severity Reaction Status Date / Time dicyclomine [From Bentyl] Allergy Verified 11/17/22 07:57 Home Medications Medication Instructions Recorded Confirmed Type albuterol sulfate 90 mcg/actuation 2 inh inhalation Q4H PRN shortness 09/25/20 12/09/22 Rx breath activated powder inhaler of breath or wheezing #1 ea blood sugar diagnostic (MonetateTouch #100 ea 01/04/22 11/17/22 Rx Ultra Test strips) lancets 33 gauge (MonetateTouch Delica #100 ea 01/04/22 11/17/22 Rx Lancets) allopurinol 300 mg tablet 300 mg PO BID #180 tabs 04/06/22 12/09/22 Rx atorvastatin 10 mg tablet 10 mg PO QPM #90 tabs 04/06/22 12/09/22 Rx diltiazem HCl 120 mg 120 mg PO DAILY #90 caps 04/06/22 12/09/22 Rx capsule,extended release 24 hr furosemide 40 mg tablet 40 mg PO DAILY #90 tabs 04/06/22 12/09/22 Rx lisinopril 40 mg tablet 40 mg PO DAILY #90 tabs 04/06/22 12/09/22 Rx metformin 500 mg tablet 500 mg PO BID #180 tabs 04/06/22 12/09/22 Rx metoprolol tartrate 100 mg tablet 100 mg PO BID #180 tabs 04/06/22 12/09/22 Rx rivaroxaban 20 mg tablet (Xarelto) 20 mg PO DAILY #90 tabs 05/04/22 12/09/22 Rx 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 Venous insufficiency Surgical History H/O total hip arthroplasty History of vasectomy Previous back surgery Status post right hip replacement Family History Mother Coronary heart disease Hypertension Diabetes Denies family history of Ovarian cancer Prostate cancer Myocardial infarction Breast cancer Colorectal cancer Social History Smoking Status: Never smoker Age Started Using Tobacco: 10; Age Quit Using Tobacco: 48; Second Hand Exposure: Yes; Do You Dip or Chew Tobacco: No; Hx Alcohol Use: No (Four drinks per week) Hx Substance Use: No Preferred Language: Guyanese Communication Ability: Effective Visual Impairment: No Limitations Puller Machine Required: No Beliefs That Will Affect Care: None marital status: Current Living Situation: Family Current Living Situation Comment: spouse and brother in law current occupational status: disabled Feels Safe at Home: Yes Childhood Exposure to Second-Hand Smoke: Yes Diet: DASH caffeine: Yes Seatbelt Use: always Sunscreen Use: No Physical Exam Physical Exam: Physical Exam: General: In no acute distress, stated age, well-nourished, non-toxic appearing HEENT: Normocephalic, atraumatic, no scleral icterus, pupils around round, symmetrical, and reactive to light, no significant JVD, trachea midline, no thyromegaly Chest/Pulm: No respiratory distress with bipap in place without air leak, symmetrical chest expansion, rhonchi noted in the LLL with crackles in the RLL, otherwise CTA Cardiac: irregular rate and rhythm, no murmurs noted Abdomen: Negative for ascites and bruising, normoactive bowel sounds, soft, non-tender to palpation throughout Musculoskeletal: Symmetrical and without signs of acute trauma, upper and lower extremities with full ROM, no atrophy, spasticity, or flaccidity Extremities: Radial, dorsalis pedis, and posterior tibial pulses are intact and symmetrical, 1+ pitting edema noted in the BL LE's Skin: Warm, dry, no rashes , lesions, or scars noted Neuro: Alert and oriented to person, place, month, year, and president, no focal defects, no tremors noted Psych: No acute distress, calm and cooperative during the exam Results & Data Results & Data Vital Signs (Past 12 Hours) Vital Signs Temp Pulse Pulse Resp BP BP Pulse Ox 12/09/22 10:30 90 26 H 87 L 12/09/22 10:30 145/86 H 12/09/22 10:41 96 H 28 H 94 12/09/22 10:00 87 22 86 L 12/09/22 10:00 142/90 H 12/09/22 09:59 147/80 H 12/09/22 09:59 97 H 26 H 88 L 12/09/22 09:30 77 21 86 L 12/09/22 09:29 94 H 22 85 L 12/09/22 10:03 92 H 24 142/90 H 89 L 12/09/22 10:02 93 H 24 89 L 12/09/22 10:02 12/09/22 09:47 87 12/09/22 09:07 36.8 C 100 H 18 130/85 72 L O2 Del Method O2 Flow Rate FiO2 12/09/22 10:30 Oxymask 12 12/09/22 10:30 12/09/22 10:41 50 12/09/22 10:00 Oxymask 12 12/09/22 10:00 12/09/22 09:59 12/09/22 09:59 Nebulizer 8 12/09/22 09:30 Oxymask 12 12/09/22 09:29 Oxymask 12 12/09/22 10:03 Nebulizer 12/09/22 10:02 Nebulizer 12/09/22 10:02 Oxymask 12 12/09/22 09:47 12/09/22 09:07 Room Air Laboratory Results Abnormal lab results 12/09/22 12/09/22 12/09/22 Range/Units 09:50 09:50 09:50 RBC 4.17 L (4.70-6.10) M/uL Hgb 13.8 L (14.0-18.0) g/dl Hct 41.8 L (42.0-52.0) % MCV 100.2 H (80.0-100.0) fL RDW Std Deviation 58.8 H (36.4-46.3) fL RDW Coeff of Marce 15.9 H (11.5-14.5) % Neut # (Auto) 8.61 H (1.40-6.50) K/uL Lymph # (Auto) 0.68 L (1.20-3.40) K/uL Sutter # (Auto) 0.67 H (0.11-0.59) K/uL VBG pCO2 (38-50) mmHg BUN 28 H (6-23) mg/dl BUN/Creatinine Ratio 28.6 H (10-20) Glucose 137 H (70-99(Fasting)) mg/dl Total Bilirubin 1.3 H (0.2-1.0) mg/dl B-Natriuretic Peptide 212 H (0-100) pg/ml 12/09/22 Range/Units 10:12 RBC (4.70-6.10) M/uL Hgb (14.0-18.0) g/dl Hct (42.0-52.0) % MCV (80.0-100.0) fL RDW Std Deviation (36.4-46.3) fL RDW Coeff of Marce (11.5-14.5) % Neut # (Auto) (1.40-6.50) K/uL Lymph # (Auto) (1.20-3.40) K/uL Sutter # (Auto) (0.11-0.59) K/uL VBG pCO2 60 H (38-50) mmHg BUN (6-23) mg/dl BUN/Creatinine Ratio (10-20) Glucose (70-99(Fasting)) mg/dl Total Bilirubin (0.2-1.0) mg/dl B-Natriuretic Peptide (0-100) pg/ml Diagnostic Findings Chest X-Ray 12/09/22 09:25 XR chest 1V portable HISTORY: 67 years-old Male Dyspnea acute shortness of breath COMPARISON: None TECHNIQUE: AP view of the chest FINDINGS: Cardiac silhouette is enlarged. Mild right hemidiaphragmatic elevation. No pneumothorax or large pleural effusion. Pulmonary vascular congestion with interstitial coarsening. Ill-defined patchy left midlung and left basilar airspace opacities. Left midlung calcified granuloma. Partially imaged lumbar spinal fusion hardware. Degenerative changes of the shoulders and spine. IMPRESSION: 1. Cardiomegaly with pulmonary vascular congestion and questioned mild pulmonary edema. 2. Mild patchy left midlung and left basilar airspace opacities may represent asymmetric alveolar pulmonary edema versus pneumonia. ACT 112: Negative or not required by law. The above report was generated using voice recognition software. It may contain grammatical, syntax or spelling errors. Electronically signed by: Renan Gray M.D. 12/09/2022 10:18 AM ECG Additional Comments: Afib without RVR or acute ST segment or T-wave changes Code Status & VTE Plan Code Status Full Code VTE Prophylaxis Plan VTE Prophylaxis will be ordered: Yes Supervising Physician Co-Signing Physician Notes I personally saw and examined the patient. I verified all gillette points and agree with Titi Cage PA-C with the following exceptions and/or additions: 67 year old male presents to the ER with progressive shortness of breath over the last week. No chest pain, orthopnea, PND, worsening leg swelling, pres yncope, syncope or claudication. Productive cough of clear phlegm. No sinus pain, nasal congestion, fever, chills. Notes a remote history of CHF 10 years ago but does not routinely follow with cardiology or adjust diuretics. Also notes history of COPD but on no maintenance inhalers and no improvement with duoneb given in ER. O/E HS increased rate, irregular rhythm, no murmurs, Chest bibasal crackles, no difference in vocal fremitus, no wheezing, poor air entry throughout, Abdo SNT, 2+ pitting pedal edema b/l to knees A/P Acute hypoxic hypercapnic respiratory failure - hypercapnia is chronic and does not need to be corrected. Will continue on his usual BiPAP HS. Otherwise aim O2 sats 88-92%. Suspect secondary to PNA +/- pulmonary edema. Community acquired pneumonia - ceftriaxone + doxycycline Pulmonary edema - Continue Lasix 40mg IV daily, aim for net negative 1L balance. Strict I&Os. Daily weights. Chronic atrial fibrillation - appropriate rate for current illness probably around 100. Continue his usual metoprolol and diltiazem. Metoprolol 5mg IV PRN for HR > 130. Continue Xarelto for anticoagulation. 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
[2022-12-09 11:39] LABS: Partial Thromboplastin Time 51.5 Seconds (21.0-31.0)
[2022-12-09] MEDS: INSULIN ASPART PER UNIT CHARGE SC SCH ×3 (12:53→20:49)
[2022-12-09 13:20] LABS: Allen Test Pos (Pos); Base Excess ABG 6.3 mEq/L (-9-1.8); HCO3 ABG 32 mmol/L (19-24); Oxygen Saturation ABG 96.9 % (90-95); PCO2 ABG 51 mmHg (35-46); PO2 ABG 78 mmHg (80-95); pH ABG 7.41 (7.35-7.45)
--- NOTE | 2022-12-09 14:31 | XCELERA ---
[id number]
[2022-12-09] MEDS ORDERED: METOPROLOL TARTRATE 1 MG/ML VIAL IV PRN ×2 (16:46→17:07)
[2022-12-09] MEDS ORDERED: METOPROLOL TARTRATE 50 MG TAB PO STA (16:57)
[2022-12-09] MEDS: RIVAROXABAN 20 MG TAB PO SCH (18:33)
[2022-12-09] MEDS: DOXYCYCLINE HYCLATE 100 MG in DEXTROSE 5% MINI-B 100 ML IV SCH (20:34)
[2022-12-09] MEDS: METOPROLOL TARTRATE 100 MG TAB PO SCH (20:39)
[2022-12-09] MEDS: ATORVASTATIN 10 MG TAB PO SCH (20:42)
[2022-12-09] MEDS: allopurinoL 300 MG TAB PO SCH (20:42)
[2022-12-09] MEDS: LANTUS PER UNIT CHARGE SQ SCH (20:50)
[2022-12-10 06:44] LABS: Basophils # (auto) 0.02 K/uL (0.00-0.20); Basophils % (auto) 0.2 %; Hematocrit (blood only) 39.4 % (42.0-52.0); Hemoglobin 12.9 g/dl (14.0-18.0); Immature Granulocytes # (auto) 0.05 K/uL (0.01-0.20); Immature Granulocytes % (auto) 0.4 %; Lymphocytes # (auto) 0.61 K/uL (1.20-3.40); Lymphocytes % (auto) 5.1 %; Mean Corpuscular Hgb Conc 32.7 g/dL (32.0-36.0); Mean Corpuscular Volume 100.8 fL (80.0-100.0); Mean Platelet Volume 11.2 fL (9.4-12.4); Monocytes % (auto) 5.8 %; Neutrophils % (auto) 88.5 %; Platelet Count 200 K/uL (130-400); RDW Coefficient of Variation 15.9 % (11.5-14.5); RDW Standard Deviation 58.7 fL (36.4-46.3); Red Blood Count 3.91 M/uL (4.70-6.10); White Blood Count 11.98 K/ul (4.8-10.8)
[2022-12-10 07:06] LABS: INR 1.4 (0.9-1.1); Prothrombin Time 14.7 Seconds (9.0-12.0)
[2022-12-10 07:16] LABS: Albumin Globulin Ratio 1.1 (0.9-2); Albumin Level 3.3 gm/dl (3.4-5.0); BUN Creatinine Ratio 30.5 (10-20); Bilirubin,Total 0.7 mg/dl (0.2-1.0); Calcium 9.3 mg/dl (8.6-10.3); Creatinine Clr Calc Pharmacy 102.6 ml/min; Est GFR (African American) 94.3 ml/min; Est GFR (Non-African American) 81.3 ml/min; Globulin 2.9 gm/dl (2.5-4.0); Potassium 4.6 mmol/L (3.5-5.1); Total Protein 6.2 gm/dl (6.0-8.3)
[2022-12-10] MEDS: LANTUS PER UNIT CHARGE SQ SCH ×2 (08:04→20:42)
[2022-12-10] MEDS: INSULIN ASPART PER UNIT CHARGE SC SCH ×4 (08:05→20:38)
[2022-12-10] MEDS: dilTIAZem HCL 120 MG CAPCR PO SCH (08:07)
[2022-12-10] MEDS: allopurinoL 300 MG TAB PO SCH ×2 (08:07→20:43)
[2022-12-10] MEDS: lisinopril 40 MG TAB PO SCH (08:08)
[2022-12-10] MEDS: FUROSEMIDE 40 MG/4 ML VIAL IV SCH (08:08)
[2022-12-10] MEDS: METOPROLOL TARTRATE 100 MG TAB PO SCH ×2 (08:09→20:45)
[2022-12-10] MEDS: cefTRIAXone SODIUM 2,000 MG in DEXTROSE 5 % MINI-B 50 ML IV SCH (08:18)
[2022-12-10] MEDS: DOXYCYCLINE HYCLATE 100 MG in DEXTROSE 5% MINI-B 100 ML IV SCH (09:19)
--- NOTE | 2022-12-10 10:43 | Hospitalist Progress Note ---
Date of Service December 10, 2022 Assessment & Plan (1) Acute respiratory failure with hypoxia and hypercapnia: Plan: Hypercapnia appears chronic and does not need to be corrected. Continue BiPAP at night. Hypoxia is acute, he is on room air at baseline. Suspected secondary to pneumonia +/- pulmonary edema. Aim O2 sats 88-92% (2) Community acquired pneumonia: Plan: Biofire PCR negative. Procalcitonin negative however has an elevated white blood count and chest x-ray more consistent with pneumonia than pulmonary edema alone with significant oxygen requirement Repeat procalcitonin and chest x-ray in a.m. Ceftriaxone plus doxycycline WBC increasing, will continue to monitor for now. No need to escalate antibiotics as clinically improving. (3) Acute pulmonary edema: Plan: TTE with left ventricular ejection fraction 65 to 70%. RV pressure overload likely due to obstructive sleep apnea. Continue Lasix 40 mg IV daily to aim slight negative balance. 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 No routine maintenance inhalers. (8) AISHA (obstructive sleep apnea): Plan: -HS bipap ordered Plan VTE prophylaxis - Xarelto Diet - low-sodium, type 2 diabetes, heart healthy, fluid restricted Disposition - continue on PCU, if continues to improve suspect he can be downgraded tomorrow Admission and Anticipated Discharge Date Admission Date: December 09, 2022 Subjective Reports improvement since admission with shortness of breath. Continues to require 10 L of oxygen at rest. He is not on oxygen at baseline. Leg swelling is improved. No fever or chills. no orthopnea or paroxysmal nocturnal dyspnea. Review of Systems Review of Systems: All systems reviewed & are unremarkable except as noted in HPI & below Physical Exam Constitutional: WD/WN, vitals as above Respiratory: normal respiratory effort; no respiratory distress Auscultation: + crackles (Bibasilar); breath sounds present, no diminished lung sounds, no rales, no rhonchi and no wheezes Cardiovascular: Rate/Rhythm: regular rate and + irregularly irregular Heart Sounds: no murmur Extremities: normal capillary refill; no calf tenderness and no pedal edema Gastrointestinal (Abdomen): normal bowel sounds, soft, nontender, no hepatosplenomegaly Psychiatric: A+Ox3, euthymic affect Genitourinary: no CVA tenderness Results & Data Results & Data Vital Signs (Past 12 Hours) Vital Signs Temp Pulse Pulse Resp BP Pulse Ox O2 Del Method 12/10/22 10:18 77 12/10/22 07:55 High Flow Nasal Cannula 12/10/22 08:00 36.5 C 121 H 22 120/85 93 Nasal Cannula 12/10/22 03:11 36.4 C L 84 21 123/75 100 BiPAP 12/10/22 02:12 72 15 12/09/22 23:06 36.9 C 71 21 112/68 98 BiPAP O2 Flow Rate FiO2 12/10/22 10:18 12/10/22 07:55 30 12/10/22 08:00 10 12/10/22 03:11 1 12/10/22 02:12 50 12/09/22 23:06 1 PG Care Time/CCT Total # of Minutes Spent Total Time Spent with Patient: Total time spent is greater than 50% in coordination of care (as documented) at patient's floor/unit and/or counseling patient: Coding Level of Care Code 72756 SUB INP/OBS CARE 2/35MIN Diagnoses Acute respiratory failure with hypoxia and hypercapnia J96.01; J96.02 Community acquired pneumonia J18.9 Acute pulmonary edema J81.0 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
[2022-12-10] MEDS: RIVAROXABAN 20 MG TAB PO SCH (17:22)
[2022-12-10] MEDS: ATORVASTATIN 10 MG TAB PO SCH (20:43)
[2022-12-10] MEDS: DOXYCYCLINE HYCLATE 100 MG CAP PO SCH (20:45)
[2022-12-11 06:48] LABS: Basophils # (auto) 0.04 K/uL (0.00-0.20); Basophils % (auto) 0.3 %; Eosinophils # (auto) 0.03 K/uL (0.00-0.50); Eosinophils % (auto) 0.3 %; Hematocrit (blood only) 40.1 % (42.0-52.0); Hemoglobin 13.2 g/dl (14.0-18.0); Immature Granulocytes # (auto) 0.05 K/uL (0.01-0.20); Immature Granulocytes % (auto) 0.4 %; Lymphocytes # (auto) 1.29 K/uL (1.20-3.40); Lymphocytes % (auto) 10.8 %; Mean Corpuscular Hemoglobin 32.9 pg (25.0-34.0); Mean Corpuscular Hgb Conc 32.9 g/dL (32.0-36.0); Mean Platelet Volume 11.2 fL (9.4-12.4); Monocytes # (auto) 1.05 K/uL (0.11-0.59); Monocytes % (auto) 8.8 %; Neutrophils # (auto) 9.43 K/uL (1.40-6.50); Neutrophils % (auto) 79.4 %; Platelet Count 215 K/uL (130-400); RDW Coefficient of Variation 15.9 % (11.5-14.5); RDW Standard Deviation 58.1 fL (36.4-46.3); Red Blood Count 4.01 M/uL (4.70-6.10); White Blood Count 11.89 K/ul (4.8-10.8)
--- NOTE | 2022-12-11 07:04 | Electrocardiogram Report ---
Test Reason : Blood Pressure : / mmHG Vent. Rate : 130 BPM Atrial Rate : 000 BPM P-R Int : 000 ms QRS Dur : 090 ms QT Int : 312 ms P-R-T Axes : 000 027 043 degrees QTc Int : 459 ms Atrial fibrillation with rapid ventricular response Abnormal ECG No previous ECGs available Confirmed by Anastacio Payne ([id number]) on 12/11/2022 7:04:20 AM Referred By: Nolan Soria Confirmed By:Anastacio Payne
--- NOTE | 2022-12-11 07:08 | Electrocardiogram Report ---
Test Reason : Blood Pressure : / mmHG Vent. Rate : 118 BPM Atrial Rate : 104 BPM P-R Int : 000 ms QRS Dur : 096 ms QT Int : 340 ms P-R-T Axes : 000 018 043 degrees QTc Int : 476 ms Atrial fibrillation with rapid ventricular response with premature ventricular or aberrantly conducte d complexes Nonspecific ST abnormality Abnormal ECG When compared with ECG of 09-DEC-2022 16:44, (unconfirmed) Nonspecific T wave abnormality now evident in Inferior leads Confirmed by Anastacio Payne ([id number]) on 12/11/2022 7:07:41 AM Referred By: Nolan Soria Confirmed By:Anastacio Payne
[2022-12-11 07:38] LABS: Albumin Globulin Ratio 1.1 (0.9-2); Albumin Level 3.3 gm/dl (3.4-5.0); Bilirubin,Total 0.6 mg/dl (0.2-1.0); Calcium 9.5 mg/dl (8.6-10.3); Creatinine Clr Calc Pharmacy 97.4 ml/min; Est GFR (African American) 88.6 ml/min; Est GFR (Non-African American) 76.5 ml/min; Globulin 2.9 gm/dl (2.5-4.0); Potassium 4.2 mmol/L (3.5-5.1); Total Protein 6.2 gm/dl (6.0-8.3)
[2022-12-11 07:41] LABS: INR 1.6 (0.9-1.1); Prothrombin Time 16.7 Seconds (9.0-12.0)
[2022-12-11] MEDS: LANTUS PER UNIT CHARGE SQ SCH ×2 (08:12→21:22)
[2022-12-11] MEDS: INSULIN ASPART PER UNIT CHARGE SC SCH ×4 (08:13→21:09)
[2022-12-11] MEDS: dilTIAZem HCL 120 MG CAPCR PO SCH (08:14)
[2022-12-11] MEDS: allopurinoL 300 MG TAB PO SCH ×2 (08:14→21:06)
[2022-12-11] MEDS: DOXYCYCLINE HYCLATE 100 MG CAP PO SCH ×2 (08:15→21:07)
[2022-12-11] MEDS: lisinopril 40 MG TAB PO SCH (08:15)
[2022-12-11] MEDS: METOPROLOL TARTRATE 100 MG TAB PO SCH ×2 (08:16→21:07)
--- NOTE | 2022-12-11 08:18 | XRay Report ---
XR chest 1V portable CLINICAL HISTORY: pneumonia, CHF COMPARISON STUDY: Chest radiograph December 09, 2022. FINDINGS: There is no pneumothorax. Moderate elevation of the right hemidiaphragm has increased. Righ t basilar opacity has developed. Possible trace right pleural effusion. Left midlung opacity is impro maulik. Pulmonary vascular congestion has slightly improved. Rightward shift of mediastinal structures i s likely due to right lower lung volume loss. IMPRESSION: 1. Interval development right basilar opacity and volume loss. This favors right middle and/or lower lobe partial atelectasis. Pneumonia could appear similar. Radiographic follow up to ensure resolution is recommended. 2. Pulmonary vascular congestion, slightly improved. ACT 112: Negative or not required by law. Electronically signed by: Tomas Parra M.D. 12/11/2022 8:16 AM
[2022-12-11] MEDS: cefTRIAXone SODIUM 2,000 MG in DEXTROSE 5 % MINI-B 50 ML IV SCH (08:19)
[2022-12-11] MEDS: FUROSEMIDE 40 MG/4 ML VIAL IV SCH (08:19)
--- NOTE | 2022-12-11 14:23 | Hospitalist Progress Note ---
Date of Service December 11, 2022 Assessment & Plan (1) Acute respiratory failure with hypoxia and hypercapnia: Plan: Hypercapnia appears chronic and does not need to be corrected. Continue BiPAP at night. Hypoxia is acute, he is on room air at baseline. Suspected secondary to pneumonia +/- pulmonary edema. Aim O2 sats 88-92% If persistently high O2 needs, will consider CTA (2) Community acquired pneumonia: Plan: Biofire PCR negative. Procalcitonin negative however has an elevated white blood count and CXR with improving vascular congestion and still with concern for atelecatsis vs PNA Repeat procalcitonin and chest x-ray in a.m. Ceftriaxone plus doxycycline WBC stable at ~12, will continue to monitor for now. No need to escalate antibiotics as clinically improving. (3) Acute pulmonary edema: Plan: TTE with left ventricular ejection fraction 65 to 70%. RV pressure overload likely due to obstructive sleep apnea. Continue Lasix 40 mg IV daily to aim slight negative balance. 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 No routine maintenance inhalers. (8) AISHA (obstructive sleep apnea): Plan: -HS bipap ordered Plan VTE prophylaxis - Xarelto Diet - low-sodium, type 2 diabetes, heart healthy, fluid restricted Disposition - continue on PCU, if continues to improve suspect he can be downgraded tomorrow Admission and Anticipated Discharge Date Admission Date: December 09, 2022 Subjective Overall reports he is improving from a breathing standpoint. Denies any chest pain. Denies any lightheadedness or dizziness. Review of Systems Review of Systems: Per Subjective Physical Exam Physical Exam: General: Well-appearing, NAD HEENT: High flow nasal cannula in place Cardiovascular: Irregularly irregular rhythm, regular rate, no M/R/G Pulmonary: No respiratory distress, diminished lung sounds with bibasilar crackles Abdomen: Soft, NT/ND, no guarding Extremities: Moving all extremities, trace pedal edema Neurologic: AAOx3, no focal deficits Psychiatric: Appropriate mood/affect Results & Data Results & Data Vital Signs (Past 12 Hours) Vital Signs Temp Pulse Pulse Resp BP Pulse Ox O2 Del Method 12/11/22 11:44 36.8 C 76 18 122/87 97 High Flow Nasal Cannula 12/11/22 07:43 75 12/11/22 09:38 Nasal Cannula 12/11/22 07:15 36.8 C 95 H 20 123/92 96 BiPAP 12/11/22 04:08 37.2 C 80 17 123/86 99 BiPAP 12/11/22 02:28 75 21 99 O2 Flow Rate FiO2 12/11/22 11:44 8 12/11/22 07:43 12/11/22 09:38 8 12/11/22 07:15 12/11/22 04:08 12/11/22 02:28 50 Laboratory Results Reviewed CBC, PT/INR, CMP todaynotable for hemoglobin improvement to 13.2, stable WBC at ~12 Diagnostic Findings Chest x-ray reviewed this morningimprovement in pulmonary vascular congestion, "interval development right basilar opacity and volume loss" -consistent with either atelectasis versus pneumonia PG Care Time/CCT Total # of Minutes Spent Total Time Spent with Patient: Total time spent is greater than 50% in coordination of care (as documented) at patient's floor/unit and/or counseling patient: Coding Level of Care Code 65635 SUB INP/OBS CARE 2/35MIN Diagnoses Acute respiratory failure with hypoxia and hypercapnia J96.01; J96.02 Community acquired pneumonia J18.9 Acute pulmonary edema J81.0 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
[2022-12-11] MEDS: RIVAROXABAN 20 MG TAB PO SCH (17:07)
[2022-12-11] MEDS: ATORVASTATIN 10 MG TAB PO SCH (21:08)
[2022-12-12] MEDS: ACETAMINOPHEN 325 MG TAB PO PRN ×3 (03:00→18:59)
[2022-12-12 06:56] LABS: Basophils # (auto) 0.05 K/uL (0.00-0.20); Basophils % (auto) 0.4 %; Eosinophils # (auto) 0.03 K/uL (0.00-0.50); Eosinophils % (auto) 0.3 %; Hematocrit (blood only) 39.3 % (42.0-52.0); Hemoglobin 12.7 g/dl (14.0-18.0); Immature Granulocytes # (auto) 0.04 K/uL (0.01-0.20); Immature Granulocytes % (auto) 0.4 %; Mean Corpuscular Hemoglobin 32.7 pg (25.0-34.0); Mean Corpuscular Hgb Conc 32.3 g/dL (32.0-36.0); Mean Corpuscular Volume 101.3 fL (80.0-100.0); Mean Platelet Volume 11.4 fL (9.4-12.4); Monocytes # (auto) 1.11 K/uL (0.11-0.59); Monocytes % (auto) 9.9 %; Neutrophils # (auto) 9.12 K/uL (1.40-6.50); Nucleated RBC # (auto) 0.02 K/uL (0.00-0.12); Nucleated RBC % (auto) 0.2 %; Platelet Count 237 K/uL (130-400); RDW Standard Deviation 58.9 fL (36.4-46.3); Red Blood Count 3.88 M/uL (4.70-6.10); White Blood Count 11.25 K/ul (4.8-10.8)
[2022-12-12 07:15] LABS: Albumin Globulin Ratio 1.2 (0.9-2); Albumin Level 3.5 gm/dl (3.4-5.0); BUN Creatinine Ratio 42.4 (10-20); Bilirubin,Total 0.7 mg/dl (0.2-1.0); Calcium 9.6 mg/dl (8.6-10.3); Creatinine Clr Calc Pharmacy 117.1 ml/min; Est GFR (Non-African American) 88.9 ml/min; Globulin 2.9 gm/dl (2.5-4.0); Total Protein 6.4 gm/dl (6.0-8.3)
[2022-12-12 07:25] LABS: INR 1.6 (0.9-1.1)
--- NOTE | 2022-12-12 08:17 | Hospitalist Progress Note ---
Date of Service December 12, 2022 Assessment & Plan (1) Acute respiratory failure with hypoxia and hypercapnia: Plan: Hypercapnia appears chronic and does not need to be corrected. Continue BiPAP at night. Hypoxia is acute, he is on room air at baseline. Suspected secondary to pneumonia +/- pulmonary edema. Continue titration of O2 - aim O2 sats 88-92% (2) Community acquired pneumonia: Plan: Biofire PCR negative. Procalcitonin negative however has an elevated white blood count and CXR with improving vascular congestion and still with concern for atelecatsis vs PNA Repeat procalcitonin normal 12/12 Ceftriaxone plus doxycycline (3) Acute pulmonary edema: Plan: TTE with left ventricular ejection fraction 65 to 70%. RV pressure overload likely due to obstructive sleep apnea. Continue Lasix 40 mg IV daily to aim slight negative balance. 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 No routine maintenance inhalers. (8) AISHA (obstructive sleep apnea): Plan: -HS bipap ordered Plan VTE prophylaxis - Xarelto Diet - low-sodium, type 2 diabetes, heart healthy, fluid restricted Disposition - continue on PCU, if continues to improve suspect he can be downgraded tomorrow Admission and Anticipated Discharge Date Admission Date: December 09, 2022 Subjective Overall reports he continues to improve from a breathing standpoint. Denies any chest pain. Denies any lightheadedness or dizziness. Did have some R hip pain overnight for which he received some Tylenol. Per nursing, having elevated HRs Review of Systems Review of Systems: Per Subjective Physical Exam Physical Exam: General: Well-appearing, NAD HEENT: Nasal cannula in place Cardiovascular: Irregularly irregular rhythm, regular rate, no M/R/G Pulmonary: No respiratory distress, diminished lung sounds without W/R/R Abdomen: Soft, NT/ND, no guarding Extremities: Moving all extremities, trace pedal edema Neurologic: AAOx3, no focal deficits Psychiatric: Appropriate mood/affect Results & Data Results & Data Vital Signs (Past 12 Hours) Vital Signs Temp Pulse Pulse Resp BP BP Pulse Ox 12/12/22 08:03 36.6 C 107 H 18 131/83 94 12/12/22 03:35 36.9 C 89 18 140/91 97 12/11/22 23:24 37.3 C 77 18 134/83 100 12/11/22 21:38 98 H 29 H 99 12/11/22 21:31 O2 Del Method O2 Flow Rate FiO2 12/12/22 08:03 Nasal Cannula 5 12/12/22 03:35 Nasal Cannula 6.0 12/11/22 23:24 BiPAP 12/11/22 21:38 50 12/11/22 21:31 Nasal Cannula 6 Laboratory Results Reviewed CBC and CMP and procalcitonin from this morningnotable for mild decrease in hemoglobin to 12.7, mild improvement in WBC to 11.25, continue improvement in creatinine to 0.85, normal procalcitonin PG Care Time/CCT Total # of Minutes Spent Total Time Spent with Patient: Total time spent is greater than 50% in coordination of care (as documented) at patient's floor/unit and/or counseling patient: Coding Level of Care Code 42873 SUB INP/OBS CARE 2/35MIN Diagnoses Acute respiratory failure with hypoxia and hypercapnia J96.01; J96.02 Community acquired pneumonia J18.9 Acute pulmonary edema J81.0 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
[2022-12-12] MEDS: INSULIN ASPART PER UNIT CHARGE SC SCH ×4 (08:22→20:31)
[2022-12-12] MEDS: LANTUS PER UNIT CHARGE SQ SCH ×2 (08:22→20:37)
[2022-12-12] MEDS: METOPROLOL TARTRATE 100 MG TAB PO SCH ×2 (08:32→20:31)
[2022-12-12] MEDS: allopurinoL 300 MG TAB PO SCH ×2 (08:33→20:31)
[2022-12-12] MEDS: dilTIAZem HCL 120 MG CAPCR PO SCH (08:33)
[2022-12-12] MEDS: lisinopril 40 MG TAB PO SCH (08:34)
[2022-12-12] MEDS: cefTRIAXone SODIUM 2,000 MG in DEXTROSE 5 % MINI-B 50 ML IV SCH (08:35)
[2022-12-12] MEDS: DOXYCYCLINE HYCLATE 100 MG CAP PO SCH ×2 (08:35→20:30)
[2022-12-12] MEDS: FUROSEMIDE 40 MG/4 ML VIAL IV SCH (08:37)
[2022-12-12] MEDS: RIVAROXABAN 20 MG TAB PO SCH (16:59)
[2022-12-12] MEDS: ATORVASTATIN 10 MG TAB PO SCH (20:31)
[2022-12-13 07:24] LABS: Hematocrit (blood only) 37.2 % (42.0-52.0); Hemoglobin 12.5 g/dl (14.0-18.0); Mean Corpuscular Hgb Conc 33.6 g/dL (32.0-36.0); Mean Corpuscular Volume 98.2 fL (80.0-100.0); Mean Platelet Volume 11.4 fL (9.4-12.4); Platelet Count 239 K/uL (130-400); RDW Coefficient of Variation 15.9 % (11.5-14.5); RDW Standard Deviation 57.2 fL (36.4-46.3); Red Blood Count 3.79 M/uL (4.70-6.10); White Blood Count 11.94 K/ul (4.8-10.8)
[2022-12-13 07:48] LABS: BUN Creatinine Ratio 33.6 (10-20); Calcium 9.7 mg/dl (8.6-10.3); Creatinine Clr Calc Pharmacy 92.9 ml/min; Est GFR (African American) 81.7 ml/min; Est GFR (Non-African American) 70.5 ml/min; Potassium 4.1 mmol/L (3.5-5.1)
--- NOTE | 2022-12-13 08:54 | XRay Report ---
XR chest 2V PA/lateral CLINICAL HISTORY: f/u atelectasis, PNA, hypoxia COMPARISON STUDY: Chest radiograph February 10, 2023. FINDINGS: Postoperative findings within the spine are incidentally noted. Elevation of the right chas diaphragm is noted. Right basilar opacity has improved. There is no pneumothorax or pleural effusion. Mild bibasilar opacities favor atelectasis. There is no consolidation to suggest pneumonia. Cardiome diastinal silhouette is unremarkable. IMPRESSION: Significant interval improvement in right basilar airspace opacity since chest radiograph of December 11, 2022. Mild residual linear densities favor atelectasis. ACT 112: Negative or not required by law. Electronically signed by: Tomas Parra M.D. 12/13/2022 8:53 AM
[2022-12-13] MEDS: INSULIN ASPART PER UNIT CHARGE SC SCH ×3 (09:23→16:44)
[2022-12-13] MEDS: LANTUS PER UNIT CHARGE SQ SCH (09:23)
[2022-12-13] MEDS: cefTRIAXone SODIUM 2,000 MG in DEXTROSE 5 % MINI-B 50 ML IV SCH (09:24)
[2022-12-13] MEDS: FUROSEMIDE 40 MG/4 ML VIAL IV SCH (09:25)
[2022-12-13] MEDS: lisinopril 40 MG TAB PO SCH (09:25)
[2022-12-13] MEDS: allopurinoL 300 MG TAB PO SCH (09:25)
[2022-12-13] MEDS: dilTIAZem HCL 120 MG CAPCR PO SCH (09:25)
[2022-12-13] MEDS: DOXYCYCLINE HYCLATE 100 MG CAP PO SCH (09:25)
[2022-12-13] MEDS: METOPROLOL TARTRATE 100 MG TAB PO SCH (09:26)
[2022-12-13] MEDS: ACETAMINOPHEN 325 MG TAB PO PRN (15:27)
--- NOTE | 2022-12-13 16:40 | Discharge Summary ---
Discharge Summary Date of Service December 13, 2022 Notes For Next Care Provider Check chest xray in 4 weeks to ensure resolution of pneumonia Medication Changes From Visit cefdinir 300mg po bid x 2 days doxycycline 100mg po bid x 2 days Increased diltiazem to 240mg po daily Admission HPI Per Admitting Provider Madhu is a 67 year old male with a PMH significant for COPD, Afib on xarelto, DMII, HTN, and AISHA on HS Bipap who presented to the [facility] ED on 12/09 with complaints of hypoxia on RA at home. In the ED he was noted to be saturating at 72% on RA but otherwise stable. Labs were significant for a lymphocyte count of 0.68, VBG with pH and Po2, WNL but with pCO2 of 60, total bili of 1.3, BNP 212 (no previous to compare), and full respiratory biofire still in process. Chest xray was read as 1. Cardiomegaly with pulmonary vascular congestion and questioned mild pulmonary edema. 2. Mild patchy left midlung and left basilar airspace opacities may represent asymmetric alveolar pulmonary edema versus pneumonia. The patient was given 60 mg IV methylprednisolone, a DuoNeb treatment, ceftriaxone, doxycycline, and 40 mg IV Lasix. At the time of the exam the patient was sitting in bed in no acute distress, currently stable on Bipap at 15/8. he states that he had been in his normal state of health until he started to develop a minimally productive cough and progressive SOB over the past week. While he has a hx of COPD he denies a chronic cough at baseline. When asked, he states that he is unsure of the color of his sputum this week. He does not feel as though he has gained weight over this time and does try to limit his sodium and water intake. He denies significant increase in LE swelling, fever, chills, chest pain, hemoptysis, pleu ritic chest pain, abd pain, nausea, vomiting, diarrhea, dysuria, hematuria, melena, and recent trauma. He has been taking all medications as prescribed and without recently missed doses. He did take his am doses of Xarelto, diltiazem, metoprolol, and 40 mg PO lasix today. He does not feeling as though he had any relief after his DuoNeb treatment, but is very comfortable on Bipap at this time. He has been using his HS bipap as prescribed. We discussed code status, he wishes to be a full code. Please refer to Dr. Carvalho's attestation for any changes in the treatment plan Principal Dx & Hospital Course #1 = Principal Diagnosis (1) Acute respiratory failure with hypoxia and hypercapnia: Hypercapnia appears chronic and does not need to be corrected. Continue BiPAP at night. Hypoxia is acute, he is on room air at baseline. Suspected secondary to pneumonia +/- acute on chronic HFpEF Two step walk test day of discharge shows need for 2LNC O2 with exertion -diuresed and use flutter valve, ICS, and finish out abx for PNA (2) Community acquired pneumonia: Biofire PCR negative. Procalcitonin negative however has an elevated white blood count and CXR with vascular congestion and still with concern for atelecatsis vs PNA Repeat CXR with volume loss on RLL Repeat procalcitonin normal 12/12 Ceftriaxone plus doxycycline was given and flutter valve, ICS, improved finish out course of cefdinir and doxy x 2 more days on discharge f/u CXR in 4 weeks (3) Acute pulmonary edema: TTE with left ventricular ejection fraction 65 to 70%. RV pressure overload likely due to obstructive sleep apnea. received Lasix 40 mg IV daily to aim slight negative balance. 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 No routine maintenance inhalers. (8) AISHA (obstructive sleep apnea): -HS bipap ordered Plan VTE prophylaxis - Xarelto Disposition - dc to home, much improved Discharge Exam Constitutional WD/WN, vitals as above Respiratory normal respiratory effort, lungs clear to auscultation Cardiovascular Rate/Rhythm: regular rate and + irregularly irregular Extremities: no edema Psychiatric A+Ox3, euthymic affect Updated Medication List Medication Instructions Recorded Confirmed Type albuterol sulfate 90 mcg/actuation 2 inh inhalation Q4H PRN shortness 09/25/20 12/09/22 Rx breath activated powder inhaler of breath or wheezing #1 ea blood sugar diagnostic (Hugh #100 ea 01/04/22 11/17/22 Rx Ultra Test strips) lancets 33 gauge (Tobyuch Delica #100 ea 01/04/22 11/17/22 Rx Lancets) allopurinol 300 mg tablet 300 mg PO BID #180 tabs 04/06/22 12/09/22 Rx atorvastatin 10 mg tablet 10 mg PO QPM #90 tabs 04/06/22 12/09/22 Rx diltiazem HCl 120 mg 120 mg PO DAILY #90 caps 04/06/22 12/09/22 Rx capsule,extended release 24 hr furosemide 40 mg tablet 40 mg PO DAILY #90 tabs 04/06/22 12/09/22 Rx lisinopril 40 mg tablet 40 mg PO DAILY #90 tabs 04/06/22 12/09/22 Rx metformin 500 mg tablet 500 mg PO BID #180 tabs 04/06/22 12/09/22 Rx metoprolol tartrate 100 mg tablet 100 mg PO BID #180 tabs 04/06/22 12/09/22 Rx rivaroxaban 20 mg tablet (Xarelto) 20 mg PO DAILY #90 tabs 05/04/22 12/09/22 Rx cefdinir 300 mg capsule 300 mg PO BID #4 caps 12/13/22 Rx diltiazem HCl 240 mg 240 mg PO DAILY #30 caps 12/13/22 Rx capsule,extended release 24 hr doxycycline hyclate 100 mg tablet 100 mg PO BID #4 tabs 12/13/22 Rx Hospital Stay Data Consultations 12/09/22 10:50 ED Decision to Admit Stat Diagnostic Imagining Performed ECHO Pending Results Patient Have Any Pending Studies at Discharge: Yes (Final blood cultures-no growth to date) Discharge Instructions Given to Patient (Per Discharging Provider) Please finish out 3 more days of the antibiotics for your pneumonia and have a repeat chest xray in 4 weeks to ensure resolution of the pneumonia. You were given IV lasix to get extra fluid off your lungs. You can continue taking your usual lasix 40mg daily. Your diltiazem dose was increased to 240mg daily to better control your heart rate which will also help fluid from up into your lungs. 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
[2022-12-13] MEDS: RIVAROXABAN 20 MG TAB PO SCH (16:45)
--- NOTE | 2022-12-14 05:59 | Electrocardiogram Report ---
Test Reason : Blood Pressure : / mmHG Vent. Rate : 129 BPM Atrial Rate : 170 BPM P-R Int : 000 ms QRS Dur : 090 ms QT Int : 284 ms P-R-T Axes : 000 051 049 degrees QTc Int : 416 ms Poor data quality, interpretation may be adversely affected Atrial fibrillation with rapid ventricular response with premature ventricular or aberrantly conducte d complexes Nonspecific ST abnormality Abnormal ECG When compared with ECG of 09-DEC-2022 18:34, No significant change was found Confirmed by Fidel Trujillo ([id number]) on 12/14/2022 5:59:43 AM Referred By: Nolan Soria Confirmed By:Fidel Trujillo
== END 2022-12-13 18:22 | disposition home or self-care (01) | DRG 193 ==
LOC: ED 09:03 → SUATTDRO 10:56 → EDINP 10:56 → 2E 14:06

== ENCOUNTER 2023-01-23 14:30 | Inpatient (IN) ==
--- OUTSIDE RECORDS SUMMARY | 2023-01-23 14:36 | External Medical Summary | Summary of Care ---
Author Name Unknown Organization [facility] Address [address] [place] [address] Phone [phone] Care Team Providers Care Detention Deputy Name Role Phone Nolan Soria MD Primary Care Provider [phone] Encounter Details Date Type Department Care Team (Late st Contact Info) Description 01/10/2023 Orders Only Radiology, [place] [address] [place] [address] Carmen Heredia PA-C [address] [facility] [place] [address] Pneumonia, unspecified organism* Allergies No known active allergiesdocumented as of this encounter (statuses as of 01/10/2023) Medications Medication Sig Dispensed Refills Start Date End Date Status LISINOPRIL-HYDROCHLOR OTHIAZIDE 20-12.5 MG PO TABS 1 tablet twice per day 0 Active METOPROLOL TARTRATE 100 MG PO TABS 2 times a day 0 Active IPRATROPIUM-ALBUTEROL 18-103 MCG/ACT IN AEROIndications:COPD, severity to be determined (HCC) 2 Puff Inhalation 4 times a day for respiratory treatment 1 3 08/07/2008 Active ASPIRIN 81 MG PO TBECIndications:Atria l fibrillation (HCC) 1 tablet every day 30 3 08/07/2008 Active ACETAMINOPHEN 500 MG PO CAPSIndications:INTER FACED RESULT 1 to 2 CAPSULE EVERY 4 HOURS NEEDED for pain 30 0 08/07/2008 Active Lisinopril 40 MG Tablet Take 40 mg by mouth daily. 0 Active furosemide (LASIX) 40 MG Tablet Take 40 mg by mouth daily. 0 Active DilTIAZem HCl ER 120 MG CP24 Take 120 mg by mouth daily. 0 Active rivaroxaban (XARELTO) 20 MG Tablet Take 20 mg by mouth daily. 0 Active metFORMIN (GLUCOPHAGE) 500 MG Tablet Take 500 mg by mouth 2 times a day with morning and evening meals. 0 Active allopurinol (ZYLOPRIM) 300 MG Tablet Take 300 mg by mouth 2 times a day. 0 Active documented as of this encounter (statuses as of 01/10/2023) Active Problems Problem Noted Date Diagnosed Date Atrial fibrillation 08/07/2008 HTN, goal to be determined 08/06/2008 COPD, severity to be determined 08/06/2008 Other chest pain 08/05/2008 documented as of this encounter (statuses as of 01/10/2023) Immunizations Name Administration Dates Next Due COVID-19 mRNA, LNP-s, No Pre serve, 2-Dose Series (Moderna) 04/26/2020,03/22/2020 COVID-19, mRNA, LNP-s, PF, B ooster, 100mcg/0.5mg (Moderna) 01/03/2021 documented as of this encounter Social History Tobacco Use Types Packs/Day Years Used Date Smoking Tobacco: Former Smokeless Tobacco: Never Alcohol Use Standard Drinks/Week Comments Yes 0 (1 standard drink = 0.6 oz pur e alcohol) 1-2 cups of rum per day Sex and Gender Information Value Date Recorded Sex Assigned at Not on file Gender Identity Not on file Sexual Orientation Not on file Job Start Date Occupation Industry Not on file Not on file Not on file documented as of this encounter Plan of Treatment Pending Results Name Type Priority Associated Diagnoses Date /Time XR CHEST 2 VIEWS Medical Imaging Routine Pneumonia, unspecified organism 01/10/2023 10:09 AM EST Scheduled Procedures Name Priority Associated Diagnoses Date/Ti me COLONOSCOPY FLEXIBLE PROXIMAL DIAGNOSTIC Recall Screen for colon cancer Health Maintenance Due Date Last Done Comments Pneumococcal Vaccine: 65+ Years (1 - PCV) 11/01/1961 Depression Screening 1965 Albumin/Creatinine Ratio 11/01/1971 Alpha-1 Antitrypsin 11/01/1971 Hepatitis C Screening 11/01/1971 O2 ASSESSMENT COMPLETED IN PAST YEAR FOR COPD 11/01/1971 DTaP,Tdap,and Td Vaccines (1 - Tdap) 1972 Cologuard 1998 Fecal Occult Blood Test 1998 Sigmoidoscopy 1998 Zoster Vaccines (1 of 2) 11/01/2003 GFR 08/07/2009 08/07/2008, 08/06/2008, 08/05/2008 Lipid Panel 08/06/2013 08/06/2008 *COPD SEVERITY VERIFIED BY PFT 10/15/2017 AAA Screening 2018 COVID-19 Vaccine (4 - 3-2 4 season) 2022 01/03/2021, 04/26/2020, 03/22/2020 Influenza Vaccine (FLU shot) (#1) 2022 Colonoscopy 11/16/2026 11/16/2016, 11/16/2016 Colorectal Cancer Screening 11/16/2026 GARDASIL-HPV IMMUNIZATION SERIES Aged Out No longer eligible b ased on patient's age to complete this topic Hepatitis B Aged Out No longer eligi ble based on patient's age to complete this topic MENINGOCOCCAL (MENACTRA/MENVEO) Aged Out No longer eligible b ased on patient's age to complete this topic documented as of this encounter Medical Devices Not on filedocumented as of this encounter Visit Diagnoses Diagnosis Pneumonia, unspecified organism- Primary documented in this encounter Advance Directives Latest Code Status on File Code Status Date Activated Date Inactivated Comments Full Code 08/05/2008 8:12 PM 08/07/2008 8:11 PM This order reflects the patients wishes and were consensually agreed upon. Question Answer Comments Discussion of Advance Directives occurred with: Patient Does the patient have a Living Will? No Does the patient have Health Care Power of Memorandum Statement Clerk? No Care Teams Detention Deputy Relationship Specialty Start Date End Date Nolan Soria MD [address] [facility] [place] [address] PCP - General Family Medicine 11/16/16 documented as of this encounter
--- NOTE | 2023-01-23 14:39 | ED Triage Note ---
Date of Service January 23, 2023 History of Present Illness This patient was briefly evaluated while in triage. An abbreviated physical exam was performed. This patient is a 67-year-old Male who presents to the ED for evaluation of hypoxia/shortness of breath x 4 days. Reports checking pulse ox at home and was 64%. Not on O2 at home. History of COPD. Notes lower leg swelling. Denies fevers. Physical Exam Constitutional: alert and oriented x3. no acute distress. HEENT: normocephalic, atraumatic. normal conjunctiva.PERRLA. EOM's grossly intact. Respiratory: lungs are clear to auscultation without wheezes, rhonchi, or rales bilaterally. equal chest rise. normal respiratory effort, no accessory muscle use. Cardiovascular: normal heart sounds without murmur. regular rate and rhythm. GI: abdomen is soft, nontender. No palpable masses. No rebound tenderness or guarding. MSK: moves all 4 extremities spontaneously Psych:appropriate mood and affect. Initial orders for labs and / or imaging were placed and patient was taken to a treatment room immediately. Please see further documentation for the full ED course.
[2023-01-23] MEDS ORDERED: ALBUT/IPRATROP 3MG/0.5MG NEB 3 ML VIAL NEB STA (14:56)
[2023-01-23] MEDS ORDERED: FUROSEMIDE INJ 20 MG/2 ML VIAL IV ONE ×2 (15:01→18:29)
--- NOTE | 2023-01-23 15:02 | Emergency Department Note ---
Impression & Plan COVID-19, Respiratory failure, Fluid overload, Anticoagulant long-term use ED Provider Note Provider: Jeovanny Hoyt MD DATE OF SERVICE: 01/23/2023 CHIEF COMPLAINT: Shortness of breath, low oxygen level HISTORY OF PRESENT ILLNESS: Patient is a 67-year-old gentleman with a history of type 2 diabetes, A-fib on Xarelto, and COPD presenting here today reporting worsening shortness of breath over just approximately the past week worse particular the last 4 days. Last night was particularly bad. Uses BiPAP at night but not on any oxygen at home. Reports some cough but denies fever or chills. Denies sick contact. Denies recent travel. Does note increased swelling of the bilateral lower legs. States compliance with his home medications including Xarelto as well as furosemide. Patient denies any pain or chest pain. Denies any trauma. Oxygen level into the 60s at home and thus with his shortness of breath came here for evaluation today. Did have outpatient follow-up since admission here in November and an x-ray was completed January 10 but they have not heard the results. PAST MEDICAL HISTORY: As noted above MEDICATIONS: Reviewed home medications SOCIAL HISTORY: PHYSICAL EXAM: GENERAL: alert and oriented in no acute distress on stretcher Head: normocephalic and atraumatic EYES: No injection, discharge or icterus. NECK: Trachea midline. ENT: Mucous membranes pink and moist. Pharynx without erythema or exudate. LUNGS: Airway patent. No retractions. Breath sounds clear without appreciable wheezing HEART: Regular rate and rhythm. No chest wall tenderness ABDOMEN: Soft and non-tender, without guarding or rebound. SKIN: Acyanotic, warm, dry, without rashes EXTREMITIES: Swelling 2+ of the lower bilateral extremities without weeping. Mild tenderness. No crepitus. NEUROLOGICAL: No focal deficits. No aphasia. No facial droop or slurred speech. Ambulatory. EK bpm atrial fibrillation. No acute ST segment elevation or depression with QTc 453. No PVC. CONTINUOUS CARDIAC MONITORING: was ordered and showed a heart rate of 70s to 100s bpm in atrial fibrillation Patient's laboratory studies and imaging reviewed. Differential includes Reactive airway disease, pneumonia, pneumothorax, COPD, CHF, infections, cardiac ischemia, pulmonary embolism, musculoskeletal, gastrointestinal, as well as other pathologies. IMPRESSION/MEDICAL DECISION MAKING: Reviewed my note from December 09 which time he is admitted with pneumonia and hypoxia requiring BiPAP. Reviewed his primary care visit from December 21 in the system. Patient hypoxic and even with 10 L oxime mask here satting only in the mid 80s. Swelling of the lower extremities is noted. Denies pain. EKG obtained a troponin but lower suspicion this is ACS or cardiac in nature. Use of Xarelto and compliance with this lowers my suspicion for DVT or PE. Recent improvement while hospitalized here with treatment for pneumonia. Reviewed x- ray report from January 10 the system with resolution of pulmonary findings. X-ray to be obtained here today. Will transition to BiPAP given his hypoxia. Small DuoNeb ordered but not significantly wheezy. Does have a history of COPD but not sure that is the primary mode of here. Denies fever or chills but could possibly infectious. Respiratory viral panel sent. Denies significant URI symptoms. Benign abdomen. Will give additional dose of some Lasix as he does have some lower extremity swelling but echo obtained on December 09 here does not indicate significant CHF but elevated RA pressures. Chest x-ray questions cardiology some congestive changes as well as some left mid to lower lung findings concerning for possible pneumonia. Given history of similar to for further delineation we will obtain a CT of the chest. VBG here with a very mild acidosis and a CO2 of 62. Patient improving rapidly on BiPAP with minimal oxygen support and heart rates improving as well. Troponin returns normal and again I doubt ACS. No severe electrolyte abnormalities. CBC without significant leukocytosis today. Minimal anemia hemoglobin 12.9. New thrombocytopenia noted. Normal renal function today. Respiratory viral panel does return positive for COVID could very well explain all of his symptoms. Will still complete the chest CT. Given dose of dexamethasone with his hypoxia. Patient has received prior COVID vaccinations. While patient is improving on BiPAP feel that he requires admission for further care and monitoring here given his severe hypoxia likely secondary to COVID. Only able to be off BiPAP limitedly to get the CT scan and then began to desat. CT of the chest with evidence of interstitial pulmonary edema and atelectasis but no evidence of PE or obvious pneumonia. Procalcitonin not significantly elevated. Will defer any possible antibiotics to the hospitalist but likely this is driven primarily by his fluid and his underlying COVID infection rather than a bacterial source. DIAGNOSIS: Hypoxic respiratory failure, fluid overload, COVID-19 DISPOSITION: Hospitalist will evaluate Patient was agreeable with this plan. Critical Care I have personally spent 55 minutes of critical care time in the direct management of this patient. This includes bedside care, interpretation of diagnostic studies, and testing, discussion with consultants, patient, and family members, and other required patient management activities. These 55 minutes is in excess of all separately billable procedures. 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 Venous insufficiency Surgical History H/O total hip arthroplasty History of vasectomy Previous back surgery Status post right hip replacement Family History Mother Coronary heart disease Hypertension Diabetes Denies family history of Ovarian cancer Prostate cancer Myocardial infarction Breast cancer Colorectal cancer Social History Smoking Status: Never smoker Age Started Using Tobacco: 10; Age Quit Using Tobacco: 48; Second Hand Exposure: Yes; Do You Dip or Chew Tobacco: No; Hx Alcohol Use: No (Four drinks per week) Hx Substance Use: No Preferred Language: Bulgarian Communication Ability: Effective Visual Impairment: No 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 Beliefs That Will Affect Care: None marital status: Current Living Situation: Family Current Living Situation Comment: spouse and brother in law current occupational status: disabled Feels Safe at Home: Yes Childhood Exposure to Second-Hand Smoke: Yes Diet: DASH caffeine: Yes Seatbelt Use: always Sunscreen Use: No Assistive Devices: Cane Allergies Allergies Allergy/AdvReac Type Severity Reaction Status Date / Time dicyclomine [From Bentyl] Allergy Unknown CAN'T Verified 01/23/23 16:21 REMEMBER Home Meds Previous Rx's Medication Instructions Recorded albuterol sulfate 90 mcg/actuation 2 inh inhalation Q4H PRN shortness 09/25/20 breath activated powder inhaler of breath or wheezing #1 ea blood sugar diagnostic (OneTouch #100 ea 01/04/22 Ultra Test strips) lancets 33 gauge (Hugh Delica #100 ea 01/04/22 Lancets) allopurinol 300 mg tablet 300 mg PO BID #180 tabs 04/06/22 atorvastatin 10 mg tablet 10 mg PO QPM #90 tabs 04/06/22 furosemide 40 mg tablet 40 mg PO DAILY #90 tabs 04/06/22 lisinopril 40 mg tablet 40 mg PO DAILY #90 tabs 04/06/22 metformin 500 mg tablet 500 mg PO BID #180 tabs 04/06/22 metoprolol tartrate 100 mg tablet 100 mg PO BID #180 tabs 04/06/22 rivaroxaban 20 mg tablet (Xarelto) 20 mg PO DAILY #90 tabs 05/04/22 diltiazem HCl 240 mg 240 mg PO DAILY #30 caps 12/13/22 capsule,extended release 24 hr Results & Data (ED) Vital Signs Vital Signs - 24 hr 01/23/23 14:36 01/23/23 14:40 01/23/23 14:49 Temperature 36.6 C Temperature Source Temporal Artery Scan Pulse Rate 82 82 Pulse Rate [Left Finger] Pulse Rate from SpO2 Sensor Pulse Rhythm Respiratory Rate 20 19 Respiratory Effort / Characteristics Non-Labored Spontaneous Respiratory Depth Normal Respiratory Pattern Regular Blood Pressure 118/77 Blood Pressure Mean 90 Blood Pressure Position Sitting Pulse Oximetry 71 L 78 L Oxygen Delivery Method Room Air Oxymask Oxygen Flow Rate 6 Fraction of Inspired Oxygen Sepsis Recent Fever Within 48 Hours No Sepsis New/Unexplained Change in Mental Status No Sepsis Action Taken by Nursing No Action Required 01/23/23 14:54 01/23/23 14:58 01/23/23 14:59 Temperature Temperature Source Pulse Rate 62 75 73 Pulse Rate [Left Finger] Pulse Rate from SpO2 Sensor Pulse Rhythm Regular Respiratory Rate 24 18 Respiratory Effort / Characteristics Non-Labored Spontaneous Respiratory Depth Respiratory Pattern Regular Blood Pressure Blood Pressure Mean Blood Pressure Position Pulse Oximetry 92 98 Oxygen Delivery Method BiPAP Oxygen Flow Rate Fraction of Inspired Oxygen 50 Sepsis Recent Fever Within 48 Hours Sepsis New/Unexplained Change in Mental Status Sepsis Action Taken by Nursing 01/23/23 15:00 01/23/23 15:09 01/23/23 15:25 Temperature Temperature Source Pulse Rate 77 70 Pulse Rate [Left Finger] 69 Pulse Rate from SpO2 Sensor 78 70 Pulse Rhythm Respiratory Rate 19 22 23 Respiratory Effort / Characteristics Non-Labored Spontaneous Respiratory Depth Respiratory Pattern Blood Pressure Blood Pressure Mean Blood Pressure Position Pulse Oximetry 89 L 99 99 Oxygen Delivery Method BiPAP Oxygen Flow Rate Fraction of Inspired Oxygen 50 Sepsis Recent Fever Within 48 Hours Sepsis New/Unexplained Change in Mental Status Sepsis Action Taken by Nursing 01/23/23 15:25 01/23/23 15:30 01/23/23 15:30 Temperature Temperature Source Pulse Rate 69 Pulse Rate [Left Finger] Pulse Rate from SpO2 Sensor 71 Pulse Rhythm Respiratory Rate 22 Respiratory Effort / Characteristics Respiratory Depth Respiratory Pattern Blood Pressure 143/82 H 153/85 H Blood Pressure Mean 113 100 Blood Pressure Position Pulse Oximetry 98 Oxygen Delivery Method Oxygen Flow Rate Fraction of Inspired Oxygen Sepsis Recent Fever Within 48 Hours Sepsis New/Unexplained Change in Mental Status Sepsis Action Taken by Nursing 01/23/23 15:56 01/23/23 16:00 01/23/23 16:01 Temperature Temperature Source Pulse Rate 74 Pulse Rate [Left Finger] Pulse Rate from SpO2 Sensor 69 Pulse Rhythm Respiratory Rate 23 Respiratory Effort / Characteristics Respiratory Depth Respiratory Pattern Blood Pressure 158/93 H Blood Pressure Mean 120 Blood Pressure Position Pulse Oximetry 97 Oxygen Delivery Method Oxygen Flow Rate Fraction of Inspired Oxygen 40 Sepsis Recent Fever Within 48 Hours Sepsis New/Unexplained Change in Mental Status Sepsis Action Taken by Nursing 01/23/23 16:01 01/23/23 16:30 01/23/23 16:31 Temperature Temperature Source Pulse Rate 70 80 98 H Pulse Rate [Left Finger] Pulse Rate from SpO2 Sensor 73 73 83 Pulse Rhythm Respiratory Rate 22 26 H 24 Respiratory Effort / Characteristics Respiratory Depth Respiratory Pattern Blood Pressure Blood Pressure Mean Blood Pressure Position Pulse Oximetry 97 94 92 Oxygen Delivery Method Oxygen Flow Rate Fraction of Inspired Oxygen Sepsis Recent Fever Within 48 Hours Sepsis New/Unexplained Change in Mental Status Sepsis Action Taken by Nursing 01/23/23 16:31 01/23/23 17:00 01/23/23 17:01 Temperature Temperature Source Pulse Rate 75 Pulse Rate [Left Finger] Pulse Rate from SpO2 Sensor 74 Pulse Rhythm Respiratory Rate 23 Respiratory Effort / Characteristics Respiratory Depth Respiratory Pattern Blood Pressure 153/94 H 135/99 Blood Pressure Mean 122 111 Blood Pressure Position Pulse Oximetry 94 Oxygen Delivery Method Oxygen Flow Rate Fraction of Inspired Oxygen Sepsis Recent Fever Within 48 Hours Sepsis New/Unexplained Change in Mental Status Sepsis Action Taken by Nursing 01/23/23 17:01 01/23/23 17:26 01/23/23 17:26 Temperature Temperature Source Pulse Rate 68 85 Pulse Rate [Left Finger] Pulse Rate from SpO2 Sensor 68 79 Pulse Rhythm Respiratory Rate 25 H 19 Respiratory Effort / Characteristics Respiratory Depth Respiratory Pattern Blood Pressure 147/77 H Blood Pressure Mean 91 Blood Pressure Position Pulse Oximetry 94 86 L Oxygen Delivery Method Oxygen Flow Rate Fraction of Inspired Oxygen Sepsis Recent Fever Within 48 Hours Sepsis New/Unexplained Change in Mental Status Sepsis Action Taken by Nursing 01/23/23 17:30 01/23/23 17:30 01/23/23 18:12 Temperature Temperature Source Pulse Rate 82 74 Pulse Rate [Left Finger] Pulse Rate from SpO2 Sensor 78 Pulse Rhythm Respiratory Rate 18 30 H Respiratory Effort / Characteristics Spontaneous Respiratory Depth Normal Respiratory Pattern Regular Blood Pressure 121/85 Blood Pressure Mean 97 Blood Pressure Position Pulse Oximetry 92 93 Oxygen Delivery Method Oxygen Flow Rate Fraction of Inspired Oxygen 40 Sepsis Recent Fever Within 48 Hours Sepsis New/Unexplained Change in Mental Status Sepsis Action Taken by Nursing Laboratory Data 01/23/23 14:52 01/23/23 14:52 Lab Results 01/23/23 01/23/23 Range/Units 14:52 15:17 WBC 7.20 (4.8-10.8) K/ul RBC 3.81 L (4.70-6.10) M/uL Hgb 12.9 L (14.0-18.0) g/dl Hct 39.5 L (42.0-52.0) % MCV 103.7 H (80.0-100.0) fL MCH 33.9 (25.0-34.0) pg MCHC 32.7 (32.0-36.0) g/dL RDW Std Deviation 69.9 H (36.4-46.3) fL RDW Coeff of Marce 18.4 H (11.5-14.5) % Plt Count 124 L (130-400) K/uL MPV 12.7 H (9.4-12.4) fL Immature Gran % (Auto) 0.4 % Neut % (Auto) 67.0 % Lymph % (Auto) 13.1 % Garland % (Auto) 18.6 % Eos % (Auto) 0.1 % Baso % (Auto) 0.8 % Neut # (Auto) 4.82 (1.40-6.50) K/uL Lymph # (Auto) 0.94 L (1.20-3.40) K/uL Garland # (Auto) 1.34 H (0.11-0.59) K/uL Eos # (Auto) 0.01 (0.00-0.50) K/uL Baso # (Auto) 0.06 (0.00-0.20) K/uL Immature Gran # (Auto) 0.03 (0.01-0.20) K/uL PT 17.7 H (9.0-12.0) Seconds INR 1.7 H (0.9-1.1) APTT 44.7 H* (21.0-31.0) Seconds PTT Ratio 1.6 VBG pH 7.34 L (7.36-7.41) VBG pCO2 62 H (38-50) mmHg VBG pO2 37 mmHg VBG HCO3 33 mmol/L VBG O2 Saturation < 60.0 % VBG Base Excess 5.6 mEq/L Sodium 139 (136-145) mmol/L Potassium 4.1 (3.5-5.1) mmol/L Chloride 101 (98-107) mmol/L Carbon Dioxide 31 (21-32) mmol/L Anion Gap 7 (3-11) BUN 25 H (6-23) mg/dl Creatinine 1.02 (0.6-1.4) mg/dl Est Cr Clr Drug Dosing Not Reportable Est GFR ( Amer) 86.5 ml/min Est GFR (Non-Af Amer) 74.6 ml/min BUN/Creatinine Ratio 24.5 H (10-20) Glucose 124 H (70-99(Fasting)) mg/dl Lactate 1.5 (0.4-2.0) mmol/L Calcium 9.0 (8.6-10.3) mg/dl Magnesium 2.0 (1.7-2.4) mg/dl Total Bilirubin 1.1 H (0.2-1.0) mg/dl AST 23 (13-39) U/L ALT 14 (7-52) U/L Alkaline Phosphatase 96 (34-104) U/L Troponin I High Sens 15.3 (0-20) pg/ml C-Reactive Protein 8.01 H (0-0.5) mg/dl Total Protein 6.6 (6.0-8.3) gm/dl Albumin 3.6 (3.4-5.0) gm/dl Globulin 3.0 (2.5-4.0) gm/dl Albumin/Globulin Ratio 1.2 (0.9-2) Procalcitonin 0.41 (0-0.5) ng/ml Adenovirus (PCR) Not Detected (NotDetected) B. pertussis DNA (PCR) Not Detected (NotDetected) B.parapertussis DNA PCR Not Detected (NotDetected) C. pneumoniae DNA (PCR) Not Detected (NotDetected) Coronavirus OC43 (PCR) Not Detected (NotDetected) Coronavirus HKU1 (PCR) Not Detected (NotDetected) Coronavirus 229E (PCR) Not Detected (NotDetected) SARS-CoV-2 (PCR) DETECTED A* (NotDetected) Coronavirus NL63 (PCR) Not Detected (NotDetected) Human Metapneumovir PCR Not Detected (NotDetected) Influenza Type A (PCR) Not Detected (NotDetected) Influenza Type B (PCR) Not Detected (NotDetected) M. pneumoniae (PCR) Not Detected (NotDetected) Parainfluenza 1 (PCR) Not Detected (NotDetected) Parainfluenza 2 (PCR) Not Detected (NotDetected) Parainfluenza 3 (PCR) Not Detected (NotDetected) Parainfluenza 4 (PCR) Not Detected (NotDetected) RSV (PCR) Not Detected (NotDetected) Entero/Rhino (PCR) Not Detected (NotDetected) Administered Medications Dexamethasone 6 mg/ Syringe 1.5 mls @ 1 mls/min IV QAM [facility] Stop: 02/22/23 19:44 Last Admin: 01/23/23 20:22 Dose: 1 mls/min Documented By: SUMMER Insulin Aspart (Insulin Aspart Per Unit Charge) 0 units SC ACHS [facility] Stop: 02/22/23 20:59 Last Admin: 01/23/23 20:16 Dose: Not Given Documented By: SUMMER Discontinued Medications Albuterol (Albut/Ipratrop 3mg/0.5mg Neb 3 Ml Vial) 3 ml NEB NOW STA; Protocol Stop: 01/23/23 14:57 Last Admin: 01/23/23 15:11 Dose: 3 ml Documented By: HORACIO Dexamethasone (Dexamethasone Sod Inj 4 Mg/Ml Vial) Confirm Administered Dose 4 mg .ROUTE .STK-MED ONE Stop: 01/23/23 19:35 Last Admin: 01/23/23 19:41 Dose: Not Given Documented By: SUMMER Dexamethasone (Dexamethasone Sod Inj 4 Mg/Ml Vial) Confirm Administered Dose 4 mg .ROUTE .STK-MED ONE Stop: 01/23/23 19:36 Last Admin: 01/23/23 19:41 Dose: Not Given Documented By: SUMMER Dexamethasone Sodium Phosphate (DexamethasonePf 10 Mg/Ml Vial) 6 mg IV NOW ONE Stop: 01/23/23 16:33 Last Admin: 01/23/23 19:32 Dose: Not Given Documented By: SUMMER Furosemide (Furosemide Inj 20 Mg/2 Ml Vial) 20 mg IV ONE ONE Stop: 01/23/23 15:02 Last Admin: 01/23/23 15:26 Dose: 20 mg Documented By: LIZA Furosemide (Furosemide Inj 20 Mg/2 Ml Vial) 20 mg IV ONE ONE Stop: 01/23/23 18:30 Last Admin: 01/23/23 19:41 Dose: 20 mg Documented By: SUMMER Ioversol (Optiray 320 125ml) 114 ml IV ONCE ONE Stop: 01/23/23 17:19 Last Admin: 01/23/23 17:19 Dose: 114 ml Documented By: NATTY Imaging Data Radiologist's Impression: Chest X-Ray 01/23/23 14:39 XR chest 1V portable HISTORY: Dyspnea COMPARISON: Chest 12/13/2022. FINDINGS: No pneumothorax. The heart remains mildly enlarged. There are trace bilateral pleural effusions and diffuse interstitial/vascular thickening. There are patchy densities within the left mid to lower lung zone. These are new compared to the prior study. IMPRESSION: 1. Cardiomegaly with mild congestive change and trace bilateral pleural effusions. 2. Patchy densities within the left mid to lower lung zone are new compared the prior study. This may represent a developing pneumonia. ACT 112: Negative or not required by law. Electronically signed by: Toby Deleon M.D. 01/23/2023 3:17 PM Chest CTA 01/23/23 15:51 CHEST CTA for PULMONARY ARTERIES CT DOSE: 983.22 mGy.cm HISTORY: PE, hypoxia, ?pna vs PE vs CHF TECHNIQUE: Multiaxial CT images of the chest were performed following the intravenous administration of contrast to evaluate the pulmonary arteries. 3D/Maximal intensity projection images were also obtained. Sagittal and coronal reformations were also reviewed. A dose lowering technique was utilized adhering to the principles of ALARA. COMPARISON STUDY: None. FINDINGS: Limited views of the upper abdomen demonstrate a normal spleen. There are are a few punctate calcified granulomas within the liver. Bilateral adrenal gland nodules measuring 2.9 cm on the right and 2.8 seconds on the left. These favor benign adenomas. Normal thyroid gland. Mild bilateral apical mass is noted. The heart is enlarged. Small right and trace left pleural effusions. The left pleural effusion is partially loculated. Normal esophagus. Mild mediastinal and right hilar lymphadenopathy. The prevascular lymph nodes are partially calcified. A dominant subcarinal lymph node measures 14 mm in short axis diameter. A few calcified left hilar lymph nodes. No acute fractures identified. Inadequate contrast within the thoracic aorta to assess for a dissection. However, the thoracic aorta is normal in course and caliber. No filling defects within the pulmonary arteries to suggest a pulmonary embolus. No pneumothorax. The central airways are patent. Emphysema. Calcified granuloma within the lingula. Interlobular septal thickening consistent with mild pulmonary edema. A few patchy groundglass densities may be due to the pulmonary edema. Bibasilar linear densities favor subsegmental atelectasis or scarring. IMPRESSION: 1. No evidence for a pulmonary embolus. 2. Cardiomegaly with mild interstitial pulmonary edema and bilateral pleural effusions as described above. 3. Bibasilar linear densities favor subsegmental atelectasis. 4. Mild mediastinal and right hilar lymphadenopathy. This is nonspecific but could be due to chronic pulmonary edema. 5. Bilateral adrenal gland nodules. These favor benign adenomas. 6. Emphysema. ACT 112: Negative or not required by law. Electronically signed by: Tboy Deleon M.D. 01/23/2023 5:38 PM Discharge Plan Visit Data Chief Complaint: Shortness of Breath/Dyspnea Stated Complaint: DIFFICULTY BREATHING ED Provider: Jeovanny Hoyt Discharge Problem: COVID-19, Respiratory failure, Fluid overload, Anticoagulant long-term use Patient Disposition: Being Evaluated by Hospitalist Discharge Instructions Interventions: ED Discharge Assessment Last Done: 01/23/23 19:03 Discharge Problem: Respiratory failure Qualifiers: Chronicity: acute Respiratory failure complication: hypoxia Qualified Code(s): J96.01 - Acute respiratory failure with hypoxia Fluid overload Qualifiers: Hypervolemia type: unspecified Qualified Code(s): E87.70 - Fluid overload, unspecified
--- NOTE | 2023-01-23 15:18 | XRay Report ---
XR chest 1V portable HISTORY: Dyspnea COMPARISON: Chest 12/13/2022. FINDINGS: No pneumothorax. The heart remains mildly enlarged. There are trace bilateral pleural effus ions and diffuse interstitial/vascular thickening. There are patchy densities within the left mid to lower lung zone. These are new compared to the prior study. IMPRESSION: 1. Cardiomegaly with mild congestive change and trace bilateral pleural effusions. 2. Patchy densities within the left mid to lower lung zone are new compared the prior study. This may represent a developing pneumonia. ACT 112: Negative or not required by law. Electronically signed by: Toby Deleon M.D. 01/23/2023 3:17 PM
[2023-01-23 15:35] LABS: Base Excess VBG 5.6 mEq/L; HCO3 VBG 33 mmol/L; Oxygen Saturation VBG < 60.0 %; PCO2 VBG 62 mmHg (38-50); PO2 VBG 37 mmHg; pH VBG 7.34 (7.36-7.41)
[2023-01-23 15:48] LABS: Troponin I High Sensitivity 15.3 pg/ml (0-20)
[2023-01-23 15:49] LABS: Albumin Level 3.6 gm/dl (3.4-5.0); Anion Gap 7 (3-11); Bilirubin,Total 1.1 mg/dl (0.2-1.0); Carbon Dioxide 31 mmol/L (21-32); Chloride 101 mmol/L (98-107); Potassium 4.1 mmol/L (3.5-5.1); Sodium 139 mmol/L (136-145)
[2023-01-23 15:52] LABS: Basophils # (auto) 0.06 K/uL (0.00-0.20); Basophils % (auto) 0.8 %; Eosinophils # (auto) 0.01 K/uL (0.00-0.50); Eosinophils % (auto) 0.1 %; Hematocrit (blood only) 39.5 % (42.0-52.0); Hemoglobin 12.9 g/dl (14.0-18.0); Immature Granulocytes # (auto) 0.03 K/uL (0.01-0.20); Immature Granulocytes % (auto) 0.4 %; Lymphocytes # (auto) 0.94 K/uL (1.20-3.40); Lymphocytes % (auto) 13.1 %; Mean Corpuscular Hemoglobin 33.9 pg (25.0-34.0); Mean Corpuscular Hgb Conc 32.7 g/dL (32.0-36.0); Mean Corpuscular Volume 103.7 fL (80.0-100.0); Mean Platelet Volume 12.7 fL (9.4-12.4); Monocytes # (auto) 1.34 K/uL (0.11-0.59); Monocytes % (auto) 18.6 %; Neutrophils # (auto) 4.82 K/uL (1.40-6.50); Platelet Count 124 K/uL (130-400); RDW Coefficient of Variation 18.4 % (11.5-14.5); RDW Standard Deviation 69.9 fL (36.4-46.3); Red Blood Count 3.81 M/uL (4.70-6.10)
[2023-01-23 15:55] LABS: Alanine Aminotransferase 14 U/L (7-52); Albumin Globulin Ratio 1.2 (0.9-2); Alkaline Phosphatase 96 U/L (34-104); Aspartate Aminotransferase 23 U/L (13-39); BUN Creatinine Ratio 24.5 (10-20); Blood Urea Nitrogen 25 mg/dl (6-23); Est GFR (African American) 86.5 ml/min; Est GFR (Non-African American) 74.6 ml/min; Glucose 124 mg/dl (70-99(Fasting)); Total Protein 6.6 gm/dl (6.0-8.3)
[2023-01-23 16:08] LABS: Adenovirus PCR Not Detected (NotDetected); Bordetella parapertussis PCR Not Detected (NotDetected); Bordetella pertussis PCR Not Detected (NotDetected); Chlamydia pneumoniae PCR Not Detected (NotDetected); Coronavirus 229E PCR Not Detected (NotDetected); Coronavirus HKU1 PCR Not Detected (NotDetected); Coronavirus NL63 PCR Not Detected (NotDetected); Coronavirus OC43PCR Not Detected (NotDetected); Human Metapneumovirus PCR Not Detected (NotDetected); INR 1.7 (0.9-1.1); Influenza A PCR Not Detected (NotDetected); Influenza B PCR Not Detected (NotDetected); Mycoplasma pneumoniae PCR Not Detected (NotDetected); Parainfluenza Virus 1 PCR Not Detected (NotDetected); Parainfluenza Virus 2 PCR Not Detected (NotDetected); Parainfluenza Virus 3 PCR Not Detected (NotDetected); Parainfluenza Virus 4 PCR Not Detected (NotDetected); Partial Thromboplastin Ratio 1.6; Prothrombin Time 17.7 Seconds (9.0-12.0); Respiratory Syncytial VirusPCR Not Detected (NotDetected); Rhinovirus/Enterovirus PCR Not Detected (NotDetected)
[2023-01-23 16:12] LABS: Coronavirus CoV-2 (COVID19)PCR DETECTED (NotDetected)
[2023-01-23 16:18] LABS: Partial Thromboplastin Time 44.7 Seconds (21.0-31.0)
[2023-01-23] MEDS ORDERED: dexAMETHasone**PF** 10 MG/ML VIAL IV ONE (16:32)
--- NOTE | 2023-01-23 17:15 | History & Physical Report ---
Date of Service January 23, 2023 Assessment & Plan (1) Acute respiratory failure with hypoxia and hypercapnia: Plan: Secondary to acute on chronic heart failure with preserved ejection fraction +/- COVID-19 Hypercapnia is mostly chronic, Ok to take off BiPAP while awake, must use while sleeping and napping (2) Acute on chronic heart failure with preserved ejection fraction: Plan: Patient denies any weight gain and this is corroborated by his weight in the ER today (125kg today and 128kg on last discharge) suggest more of a COVID-19 component Lasix 40mg IV daily Strict I&Os Daily weights Low Na, fluid restricted diet (3) COVID-19: Plan: Vaccinated and boosted Possible day 5 of illness, will defer antivirals as also not clear how much of an effect this is having compared to CHF Given elevated CRP and lack of weight gain will use Dexamethasone 6mg IV daily for 10 days COVID isolation precautions (4) 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: Plan: Hemoglobin A1C 6.5 in October repeat with AM labs Novolog: --Goal BSG Range: Low 110 mg/dL, High 140 mg/dL --Correction Factor: 30 mg/dL/unit --Carbohydrate ratio = 10 g/unit --BSGs ACHS if eating, q6h if npo Consult pharmacy for glycemic control in setting of dexamethasone use (5) Gout: Plan: Allopurinol 300mg PO BID (6) Chronic a-fib: Plan: Continue Xarelto for anticoagulation Continue diltiazem and metoprolol for rate control (7) AISHA (obstructive sleep apnea): Plan: BiPAP HS and while napping Plan VTE Prophylaxis - Xarelto 20mg PO daily Diet - heart healthy, T2DM, low Na, fluid restrict 1500ml Disposition - admit to PCU Admission and Anticipated Discharge Date Admission Date: January 23, 2023 History of Present Illness Chief Complaint: Shortness of breath Primary Care Provider: Nolan Soria MD Madhu Fermin is a 67 year old male who presents to the ER with shortness of breath and leg swelling since last Tuesday. No fever, chills, loss of taste, smell, appetite, diarrhea, chest pain, palpitations, presyncope or syncope. He reports having a mild clear mucus cough every now and again. He feels this is very similar to his November admission for pneumonia and CHF. He feels his legs are at baseline swelling and denies any weight gain. Allergies Allergy/AdvReac Type Severity Reaction Status Date / Time dicyclomine [From Bentyl] Allergy Unknown CAN'T Verified 01/23/23 16:21 REMEMBER Home Medications Medication Instructions Recorded Confirmed Type albuterol sulfate 90 mcg/actuation 2 inh inhalation Q4H PRN shortness 09/25/20 01/23/23 Rx breath activated powder inhaler of breath or wheezing #1 ea blood sugar diagnostic ([employer] #100 ea 01/04/22 12/21/22 Rx Ultra Test strips) lancets 33 gauge ([employer] #100 ea 01/04/22 12/21/22 Rx Lancets) allopurinol 300 mg tablet 300 mg PO BID #180 tabs 04/06/22 01/23/23 Rx atorvastatin 10 mg tablet 10 mg PO QPM #90 tabs 04/06/22 01/23/23 Rx furosemide 40 mg tablet 40 mg PO DAILY #90 tabs 04/06/22 01/23/23 Rx lisinopril 40 mg tablet 40 mg PO DAILY #90 tabs 04/06/22 01/23/23 Rx metformin 500 mg tablet 500 mg PO BID #180 tabs 04/06/22 01/23/23 Rx metoprolol tartrate 100 mg tablet 100 mg PO BID #180 tabs 04/06/22 01/23/23 Rx rivaroxaban 20 mg tablet (Xarelto) 20 mg PO DAILY #90 tabs 05/04/22 01/23/23 Rx diltiazem HCl 240 mg 240 mg PO DAILY #30 caps 12/13/22 01/23/23 Rx capsule,extended release 24 hr 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 Venous insufficiency Surgical History H/O total hip arthroplasty History of vasectomy Previous back surgery Status post right hip replacement Family History Mother Coronary heart disease Hypertension Diabetes Denies family history of Ovarian cancer Prostate cancer Myocardial infarction Breast cancer Colorectal cancer Social History Smoking Status: Former smoker Age Started Using Tobacco: 10; Age Quit Using Tobacco: 48; Second Hand Exposure: Yes; Do You Dip or Chew Tobacco: No; Hx Alcohol Use: No Hx Substance Use: No Preferred Language: Frisian Communication Ability: Effective Visual Impairment: No Limitations Line Repairer Required: No Beliefs That Will Affect Care: None marital status: Current Living Situation: Family Current Living Situation Comment: spouse and brother in law current occupational status: disabled Feels Safe at Home: Yes Childhood Exposure to Second-Hand Smoke: Yes Diet: DASH caffeine: Yes Seatbelt Use: always Sunscreen Use: No Assistive Devices: None Review of Systems Review of Systems: All systems reviewed & are unremarkable except as noted in HPI & below Physical Exam Constitutional: well developed and well nourished; no acute distress Eyes: PERRL, conjunctivae normal, anicteric sclerae ENMT: external ear and nose normal, oropharynx normal Respiratory: + labored breathing and + uses accessory muscles; + not able to speak in complete sentence, expiratory phase not prolonged and no stridor Auscultation: + crackles (bibasal); breath sounds present, no diminished lung sounds, no rales, no rhonchi and no wheezes Cardiovascular: Rate/Rhythm: regular rate and + irregularly irregular Heart Sounds: + murmur Extremities: normal capillary refill and + pedal edema; no calf tenderness Gastrointestinal (Abdomen): normal bowel sounds, soft, nontender, no hepatosplenomegaly Musculoskeletal: no cyanosis or clubbing, extremities motor strength 5/5 Skin: no rashes, warm and dry Neurologic: moves all extremities and awake; not confused Psychiatric: A+Ox3, euthymic affect Results & Data Results & Data Vital Signs (Past 12 Hours) Vital Signs Temp Pulse Pulse Resp BP Pulse Ox O2 Del Method 01/23/23 15:56 01/23/23 15:09 69 22 99 BiPAP 01/23/23 14:59 73 18 98 01/23/23 14:58 75 01/23/23 14:54 62 24 92 BiPAP 01/23/23 14:40 78 L Oxymask 01/23/23 14:36 36.6 C 82 20 118/77 71 L Room Air O2 Flow Rate FiO2 01/23/23 15:56 40 01/23/23 15:09 50 01/23/23 14:59 50 01/23/23 14:58 01/23/23 14:54 01/23/23 14:40 6 01/23/23 14:36 Laboratory Results Abnormal lab results 01/23/23 01/23/23 Range/Units 14:52 15:17 RBC 3.81 L (4.70-6.10) M/uL Hgb 12.9 L (14.0-18.0) g/dl Hct 39.5 L (42.0-52.0) % MCV 103.7 H (80.0-100.0) fL RDW Std Deviation 69.9 H (36.4-46.3) fL RDW Coeff of Marce 18.4 H (11.5-14.5) % Plt Count 124 L (130-400) K/uL MPV 12.7 H (9.4-12.4) fL Lymph # (Auto) 0.94 L (1.20-3.40) K/uL [place] # (Auto) 1.34 H (0.11-0.59) K/uL PT 17.7 H (9.0-12.0) Seconds INR 1.7 H (0.9-1.1) APTT 44.7 H* (21.0-31.0) Seconds VBG pH 7.34 L (7.36-7.41) VBG pCO2 62 H (38-50) mmHg BUN 25 H (6-23) mg/dl BUN/Creatinine Ratio 24.5 H (10-20) Glucose 124 H (70-99(Fasting)) mg/dl Total Bilirubin 1.1 H (0.2-1.0) mg/dl SARS-CoV-2 (PCR) DETECTED A* (NotDetected) Diagnostic Findings XR chest 1V portable HISTORY: Dyspnea COMPARISON: Chest 12/13/2022. FINDINGS: No pneumothorax. The heart remains mildly enlarged. There are trace bilateral pleural effusions and diffuse interstitial/vascular thickening. There are patchy densities within the left mid to lower lung zone. These are new compared to the prior study. IMPRESSION: 1. Cardiomegaly with mild congestive change and trace bilateral pleural effusions. 2. Patchy densities within the left mid to lower lung zone are new compared the prior study. This may represent a developing pneumonia. CHEST CTA for PULMONARY ARTERIES CT DOSE: 983.22 mGy.cm HISTORY: PE, hypoxia, ?pna vs PE vs CHF TECHNIQUE: Multiaxial CT images of the chest were performed following the intravenous administration of contrast to evaluate the pulmonary arteries. 3D/Maximal intensity projection images were also obtained. Sagittal and coronal reformations were also reviewed. A dose lowering technique was utilized adhering to the principles of ALARA. COMPARISON STUDY: None. FINDINGS: Limited views of the upper abdomen demonstrate a normal spleen. There are are a few punctate calcified granulomas within the liver. Bilateral adrenal gland nodules measuring 2.9 cm on the right and 2.8 seconds on the left. These favor benign adenomas. Normal thyroid gland. Mild bilateral apical mass is noted. The heart is enlarged. Small right and trace left pleural effusions. The left pleural effusion is partially loculated. Normal esophagus. Mild mediastinal and right hilar lymphadenopathy. The prevascular lymph nodes are partially calcified. A dominant subcarinal lymph node measures 14 mm in short axis diameter. A few calcified left hilar lymph nodes. No acute fractures identified. Inadequate contrast within the thoracic aorta to assess for a dissection. However, the thoracic aorta is normal in course and caliber. No filling defects within the pulmonary arteries to suggest a pulmonary embolus. No pneumothorax. The central airways are patent. Emphysema. Calcified granuloma within the lingula. Interlobular septal thickening consistent with mild pulmonary edema. A few patchy groundglass densities may be due to the pulmonary edema. Bibasilar linear densities favor subsegmental atelectasis or scarring. IMPRESSION: 1. No evidence for a pulmonary embolus. 2. Cardiomegaly with mild interstitial pulmonary edema and bilateral pleural effusions as described above. 3. Bibasilar linear densities favor subsegmental atelectasis. 4. Mild mediastinal and right hilar lymphadenopathy. This is nonspecific but could be due to chronic pulmonary edema. 5. Bilateral adrenal gland nodules. These favor benign adenomas. 6. Emphysema. Medications Administered ER Medications Given: Duoneb 3ml NEB Lasix 20mg IV Dexamethasone 6mg IV ECG Rate (beats per minute): 81 Rhythm: atrial fibrillation Findings: no acute ischemic change Comparison ECG Date: from (December 12, 2022) Change: the following changes noted (improved rate control) Code Status & VTE Plan Code Status Full VTE Prophylaxis Plan VTE Prophylaxis will be ordered: Yes PG Care Time/CCT Total # of Minutes Spent Total Time Spent with Patient: Total time spent is greater than 50% in coordination of care (as documented) at patient's floor/unit and/or counseling patient: Coding Level of Care Code 01519 INT INP/OBS CARE 3/75MIN Diagnoses Acute respiratory failure with hypoxia and hypercapnia J96.01; J96.02 Acute on chronic heart failure with preserved ejection fraction I50.33 COVID-19 U07.1 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
[2023-01-23] MEDS ORDERED: OPTIRAY 320 125ml IV ONE (17:18)
--- NOTE | 2023-01-23 17:40 | CT Scan Report ---
CHEST CTA for PULMONARY ARTERIES CT DOSE: 983.22 mGy.cm HISTORY: PE, hypoxia, ?pna vs PE vs CHF TECHNIQUE: Multiaxial CT images of the chest were performed following the intravenous administration of contrast to evaluate the pulmonary arteries. 3D/Maximal intensity projection images were also obta ined. Sagittal and coronal reformations were also reviewed. A dose lowering technique was utilized a dhering to the principles of ALARA. COMPARISON STUDY: None. FINDINGS: Limited views of the upper abdomen demonstrate a normal spleen. There are are a few punctat e calcified granulomas within the liver. Bilateral adrenal gland nodules measuring 2.9 cm on the righ t and 2.8 seconds on the left. These favor benign adenomas. Normal thyroid gland. Mild bilateral apic al mass is noted. The heart is enlarged. Small right and trace left pleural effusions. The left pleur al effusion is partially loculated. Normal esophagus. Mild mediastinal and right hilar lymphadenopath y. The prevascular lymph nodes are partially calcified. A dominant subcarinal lymph node measures 14 mm in short axis diameter. A few calcified left hilar lymph nodes. No acute fractures identified. Kelly dequate contrast within the thoracic aorta to assess for a dissection. However, the thoracic aorta is normal in course and caliber. No filling defects within the pulmonary arteries to suggest a pulmonar y embolus. No pneumothorax. The central airways are patent. Emphysema. Calcified granuloma within the lingula. Interlobular septal thickening consistent with mild pulmonary edema. A few patchy groundgla ss densities may be due to the pulmonary edema. Bibasilar linear densities favor subsegmental atelect asis or scarring. IMPRESSION: 1. No evidence for a pulmonary embolus. 2. Cardiomegaly with mild interstitial pulmonary edema and bilateral pleural effusions as described a abraham. 3. Bibasilar linear densities favor subsegmental atelectasis. 4. Mild mediastinal and right hilar lymphadenopathy. This is nonspecific but could be due to chronic pulmonary edema. 5. Bilateral adrenal gland nodules. These favor benign adenomas. 6. Emphysema. ACT 112: Negative or not required by law. Electronically signed by: Toby Deleon M.D. 01/23/2023 5:38 PM
[2023-01-23 17:48] LABS: Appearance Urine Clear (Clear); Bilirubin Urine Negative (Negative); Blood Urine Negative (Negative); Color Urine Yellow; Glucose Urine UA Negative (Negative); Ketones Urine Negative (Negative); Leukocyte Esterase Urine Negative (Negative); Nitrite Urine Negative (Negative); Protein Urine Negative (Negative); Specific Gravity Urine 1.013 (1.000-1.030); Urobilinogen Urine Negative (Negative)
[2023-01-23] MEDS ORDERED: PHARMACY GLYCEMIC MGMT CONSULT PRN (19:03)
[2023-01-23] MEDS ORDERED: CARBOHYDRATES FOR HYPOGLYCEMIA PO PRN (19:03)
[2023-01-23] MEDS ORDERED: DEXAMETHASONE SOD INJ 4 MG/ML VIAL IV SCH (19:03)
[2023-01-23] MEDS ORDERED: GLUCAGON FOR INJ 1 MG VIAL SQ PRN (19:03)
[2023-01-23] MEDS ORDERED: ACETAMINOPHEN 325 MG TAB PO PRN (19:03)
[2023-01-23] MEDS ORDERED: DEXTROSE 50% 50 ML SYRINGE IV PRN (19:03)
[2023-01-23] MEDS ORDERED: GLUCOSE 40% GEL 15 GM TUBE PO PRN (19:03)
[2023-01-23] MEDS ORDERED: GLUCOSE 10 TAB/TUBE PO PRN (19:03)
[2023-01-23] MEDS ORDERED: DEXAMETHASONE SOD INJ 4 MG/ML VIAL ONE ×2 (19:34→19:35)
[2023-01-23 20:03] LABS: C Reactive Protein 8.01 mg/dl (0-0.5)
[2023-01-23] MEDS: INSULIN ASPART PER UNIT CHARGE SC SCH ×2 (20:16→23:40)
[2023-01-23] MEDS: dexAMETHasone 6 MG in SYRINGE 0 ML IV SCH (20:22)
[2023-01-23] MEDS ORDERED: LANTUS PER UNIT CHARGE SQ ONE (21:00)
[2023-01-23] MEDS ORDERED: LANTUS PER UNIT CHARGE SC ONE (21:00)
[2023-01-24] MEDS: METOPROLOL TARTRATE 100 MG TAB PO SCH ×3 (02:46→21:22)
[2023-01-24] MEDS: INSULIN ASPART PER UNIT CHARGE SC SCH ×5 (03:57→20:52)
[2023-01-24 06:21] LABS: Hematocrit (blood only) 43.6 % (42.0-52.0); Hemoglobin 13.8 g/dl (14.0-18.0); Mean Corpuscular Hemoglobin 33.3 pg (25.0-34.0); Mean Corpuscular Hgb Conc 31.7 g/dL (32.0-36.0); Mean Corpuscular Volume 105.1 fL (80.0-100.0); Platelet Count 121 K/uL (130-400); RDW Coefficient of Variation 17.9 % (11.5-14.5); RDW Standard Deviation 70.4 fL (36.4-46.3); Red Blood Count 4.15 M/uL (4.70-6.10); White Blood Count 6.95 K/ul (4.8-10.8)
[2023-01-24 06:33] LABS: Albumin Globulin Ratio 1.2 (0.9-2); Albumin Level 3.8 gm/dl (3.4-5.0); Bilirubin,Total 0.9 mg/dl (0.2-1.0); Calcium 9.3 mg/dl (8.6-10.3); Creatinine Clr Calc Pharmacy 112.3 ml/min; Est GFR (African American) 101.1 ml/min; Est GFR (Non-African American) 87.2 ml/min; Globulin 3.1 gm/dl (2.5-4.0); Potassium 3.9 mmol/L (3.5-5.1); Total Protein 6.9 gm/dl (6.0-8.3)
[2023-01-24 06:56] LABS: Basophils # (auto) 0.01 K/uL (0.00-0.20); Basophils % (auto) 0.1 %; Immature Granulocytes # (auto) 0.02 K/uL (0.01-0.20); Immature Granulocytes % (auto) 0.3 %; Lymphocytes # (auto) 0.36 K/uL (1.20-3.40); Lymphocytes % (auto) 5.2 %; Monocytes # (auto) 0.25 K/uL (0.11-0.59); Monocytes % (auto) 3.6 %; Neutrophils # (auto) 6.31 K/uL (1.40-6.50); Neutrophils % (auto) 90.8 %
[2023-01-24] MEDS: dexAMETHasone 6 MG in SYRINGE 0 ML IV SCH (08:12)
[2023-01-24] MEDS: FUROSEMIDE 40 MG/4 ML VIAL IV SCH (08:12)
[2023-01-24] MEDS: dilTIAZem HCL 240 MG CAPCR PO SCH (08:12)
[2023-01-24] MEDS: allopurinoL 300 MG TAB PO SCH ×2 (08:13→21:23)
[2023-01-24 08:29] LABS: Estimated Average Glucose 108 mg/dl; Hemoglobin A1C 5.4 % (4.5-5.6)
[2023-01-24] MEDS ORDERED: FUROSEMIDE 40 MG TAB PO SCH (09:00)
--- NOTE | 2023-01-24 09:27 | Hospitalist Progress Note ---
Date of Service January 24, 2023 Assessment & Plan (1) Acute respiratory failure with hypoxia and hypercapnia: Plan: Secondary to COVID-19 +/- acute on chronic heart failure with preserved ejection fraction Hypercapnia is mostly chronic, Ok to take off BiPAP while awake, must use while sleeping and napping -Blood cultures pending (2) COVID-19: Plan: Vaccinated and boosted - Symptom onset 01/19, will defer antivirals as also not clear how much of an effect this is having compared to CHF - Dexamethasone 6mg IV daily for 10 days, last day 02/01/2023 - Wean oxygen as able, currently requiring 4L - PT/OT COVID isolation precautions (3) Acute on chronic heart failure with preserved ejection fraction: Plan: Patient denies any weight gain and this is corroborated by his weight in the ER today (125kg today and 128kg on last discharge) suggest more of a COVID-19 component 01/23: CT with Cardiomegaly with mild interstitial pulmonary edema and bilateral pleural effusions. Atelectasis and lymphadenopathy. 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: Plan: Hemoglobin A1C 6.5 in October, 01/24: 5.4 Novolog: --Goal BSG Range: Low 110 mg/dL, High 140 mg/dL --Correction Factor: 30 mg/dL/unit --Carbohydrate ratio = 10 g/unit --BSGs ACHS if eating, q6h if npo Consult pharmacy for glycemic control in setting of dexamethasone use (5) Gout: Plan: Allopurinol 300mg PO BID (6) Chronic a-fib: Plan: Continue Xarelto for anticoagulation Continue diltiazem and metoprolol for rate control (7) AISHA (obstructive sleep apnea): Plan: BiPAP HS and while napping Plan VTE Prophylaxis - Xarelto 20mg PO daily Diet - heart healthy, T2DM, low Na, fluid restrict 1500ml Disposition - continued inpatient stay Admission and Anticipated Discharge Date Admission Date: January 23, 2023 Subjective 0910 - Patient seen sitting at the side of bed. Reports that is feeling much better and asking to go home. Reports increasing SOB at home x 4 days, but different from fluid overload/heart failure he has had in the past. Lives at home with , son and daughter-in law. Ambulated with cane 2/2 to knee issues. Feels like he is breathing better, 4L NC during exam. He does not wear oxygen at home, but reports has been complaint with his bipap at night. Has not been ambulating to the bathroom, using the urinal. Good apetite. Denies CP and SOB. Tele - 70-80s, runs of 150s OVN Review of Systems Review of Systems: All systems reviewed & are unremarkable except as noted in Subjective Physical Exam Physical Exam: General: WN/WD, NAD, VS as above Resp: normal respiratory effort, minimal inspiratory wheeze b/l bases CV: RRR, no murmur, no edema Abd: normal bowel sounds, non tender, no hepatosplenomegaly Extremities: Moves all extremities, no edema Neuro: A&O x3, Skin: intact, no lesions noted Results & Data Results & Data Vital Signs (Past 12 Hours) Vital Signs Pulse Pulse Resp BP BP Pulse Ox O2 Del Method 01/24/23 07:26 90 117/85 95 Nasal Cannula 01/24/23 07:06 108 H 01/24/23 07:00 86 18 95 BiPAP 01/24/23 05:54 101 H 124/88 92 BiPAP 01/24/23 02:46 93 H 16 109/75 91 BiPAP 01/24/23 02:31 80 21 96 01/24/23 00:56 Oxymask 01/24/23 00:56 104 H 18 134/99 100 Oxymask 01/24/23 00:31 88 01/23/23 21:30 98 H 24 92 Oxymask O2 Flow Rate FiO2 01/24/23 07:26 4 01/24/23 07:06 01/24/23 07:00 01/24/23 05:54 01/24/23 02:46 01/24/23 02:31 40 01/24/23 00:56 01/24/23 00:56 15 01/24/23 00:31 01/23/23 21:30 12 Laboratory Results CBC, CMP, HGBA1c, reviewed Diagnostic Findings CT and CXR reviewed PG Care Time/CCT Total # of Minutes Spent Total Time Spent with Patient: Total time spent is greater than 50% in coordination of care (as documented) at patient's floor/unit and/or counseling patient: Coding Level of Care Code 75570 SUB INP/OBS CARE MIN Diagnoses Acute respiratory failure with hypoxia and hypercapnia J96.01; J96.02 COVID-19 U07.1 Acute on chronic heart failure with preserved ejection fraction I50.33 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
--- NOTE | 2023-01-24 12:33 | Electrocardiogram Report ---
Test Reason : Blood Pressure : / mmHG Vent. Rate : 081 BPM Atrial Rate : 000 BPM P-R Int : 000 ms QRS Dur : 094 ms QT Int : 390 ms P-R-T Axes : 000 042 025 degrees QTc Int : 453 ms Atrial fibrillation Abnormal ECG When compared with ECG of 12-DEC-2022 08:11, Vent. rate has decreased BY 48 BPM Confirmed by Rigoberto Smith ([id number]) on 01/24/2023 12:33:20 PM Referred By: REFERRED SELF Confirmed By:Rigoberto Smith
--- NOTE | 2023-01-24 14:01 | Pharmacy Report ---
Pharmacy Glycemic Short Note 2 - Date of Service January 24, 2023 - Glycemic Short BSG Results (Last 24 hours): 01/23/23 01/23/23 01/23/23 14:52 20:03 23:36 Glucose 124 H POC Glucose 103 H 118 H 01/24/23 01/24/23 01/24/23 03:41 05:29 09:05 Glucose 139 H POC Glucose 139 H 128 H 01/24/23 12:46 Glucose POC Glucose 156 H OUTPATIENT ANTIDIABETIC REGIMEN: * Metformin 500 mg PO BID * HbA1c: 5.4% (01/24/23) ASSESSMENT: * 67 yo M admitted on 01/23/23 secondary to COVID-19 pneumonia. Pharmacy has been consulted to assist with inpatient glycemic management. Patient is a Type 2 diabetic as an outpatient. Please refer to outpatient regimen and most recent HbA1c above. * Received 8 units of basal last night once admitted. BSGs were: 103-118-139 mg/dL. * Fasting BSG is 128 mg/dL this AM. Will start a scaled basal dose this evening to provide 0-10 units depending on BSG. Patient continues on Dexamethasone 6 mg IV every 24 hours for COVID. * Will tighten Novolog to reflect weight/stress of 2 given steroids. PLAN FOR INPATIENT GLYCEMIC CONTROL: * Hold outpatient oral diabetes medications * Basal insulin * Lantus 0-10 units SC HS * Bolus insulin * NovoLog per scale ACHS or Q6hrs while NPO * Goal Range: Low 110 mg/dL - High 140 mg/dL * Correction Factor: 25 mg/dL/unit * Nutritional / Prandial insulin per carb ratio of 1 unit per 8 grams CHO consumed
[2023-01-24 17:57] LABS: A calco-baum cmplx NotReported Not Detected (NotDetected); Bact fragilis Not Reported Not Detected (NotDetected); Blood Culture Id Panel PCR Panel Negative (NotDetected); C auris Not Reported Not Detected (NotDetected); Calbicans Not Reported Not Detected (NotDetected); Candida glabrata Not Reported Not Detected (NotDetected); Candida krusei Not Reported Not Detected (NotDetected); Cneoformans/gatti Not Reported Not Detected (NotDetected); Cparapsilosis Not Reported Not Detected (NotDetected); E cloacae compx Not Reported Not Detected (NotDetected); Efaecalis Not Reported Not Detected (NotDetected); Efaecium Not Reported Not Detected (NotDetected); Enterobacterales Not Reported Not Detected (NotDetected); Escherichia coli Not Reported Not Detected (NotDetected); H influenzae Not Reported Not Detected (NotDetected); K aerogenes Not Reported Not Detected (NotDetected); Koxytoca Not Reported Not Detected (NotDetected); Kpneumoniae grp Not Reported Not Detected (NotDetected); Lmonocyt Not Reported Not Detected (NotDetected); N meningitidis Not Reported Not Detected (NotDetected); P aeruginosa Not Reported Not Detected (NotDetected); Proteus spp Not Reported Not Detected (NotDetected); Salmonella spp Not Reported Not Detected (NotDetected); Smarcescens Not Reported Not Detected (NotDetected); Staph lugdunensis Not Reported Not Detected (NotDetected); Staph spp. Not Reported Not Detected (NotDetected); Staphaureus Not Reported Not Detected (NotDetected); Staphepi Not Reported Not Detected (NotDetected); Stenmaltophilia Not Reported Not Detected (NotDetected); Strep agal(GrpB) Not Reported Not Detected (NotDetected); Strep pneum Not Reported Not Detected (NotDetected); Strep pyog (GrpA) Not Reported Not Detected (NotDetected); Strep spp Not Reported Not Detected (NotDetected)
[2023-01-24] MEDS: ATORVASTATIN 10 MG TAB PO SCH (18:16)
[2023-01-24] MEDS: RIVAROXABAN 20 MG TAB PO SCH (18:16)
[2023-01-24] MEDS: LANTUS PER UNIT CHARGE SC SCH (20:53)
[2023-01-25 06:37] LABS: Basophils # (auto) 0.01 K/uL (0.00-0.20); Basophils % (auto) 0.1 %; Hematocrit (blood only) 38.5 % (42.0-52.0); Hemoglobin 12.6 g/dl (14.0-18.0); Immature Granulocytes # (auto) 0.09 K/uL (0.01-0.20); Immature Granulocytes % (auto) 0.7 %; Lymphocytes # (auto) 0.45 K/uL (1.20-3.40); Lymphocytes % (auto) 3.6 %; Mean Corpuscular Hemoglobin 33.5 pg (25.0-34.0); Mean Corpuscular Hgb Conc 32.7 g/dL (32.0-36.0); Mean Corpuscular Volume 102.4 fL (80.0-100.0); Mean Platelet Volume 12.4 fL (9.4-12.4); Monocytes # (auto) 0.97 K/uL (0.11-0.59); Monocytes % (auto) 7.7 %; Neutrophils # (auto) 11.15 K/uL (1.40-6.50); Neutrophils % (auto) 87.9 %; Nucleated RBC # (auto) 0.02 K/uL (0.00-0.12); Nucleated RBC % (auto) 0.2 %; Platelet Count 137 K/uL (130-400); RDW Coefficient of Variation 17.5 % (11.5-14.5); RDW Standard Deviation 66.2 fL (36.4-46.3); Red Blood Count 3.76 M/uL (4.70-6.10); White Blood Count 12.67 K/ul (4.8-10.8)
[2023-01-25 07:00] LABS: BUN Creatinine Ratio 40.2 (10-20); Calcium 9.6 mg/dl (8.6-10.3); Creatinine Clr Calc Pharmacy 108.7 ml/min; Est GFR (Non-African American) 84.6 ml/min
[2023-01-25] MEDS: allopurinoL 300 MG TAB PO SCH ×2 (08:00→21:00)
[2023-01-25] MEDS: dilTIAZem HCL 240 MG CAPCR PO SCH (08:00)
[2023-01-25] MEDS: METOPROLOL TARTRATE 100 MG TAB PO SCH ×2 (08:00→21:00)
[2023-01-25] MEDS: FUROSEMIDE 40 MG/4 ML VIAL IV SCH (08:00)
[2023-01-25] MEDS: dexAMETHasone 6 MG in SYRINGE 0 ML IV SCH (08:16)
[2023-01-25] MEDS: INSULIN ASPART PER UNIT CHARGE SC SCH ×4 (09:50→20:30)
[2023-01-25 12:03] LABS: C Reactive Protein 4.21 mg/dl (0-0.5)
--- NOTE | 2023-01-25 14:24 | Pharmacy Report ---
Pharmacy Glycemic Short Note 2 - Date of Service January 25, 2023 - Glycemic Short BSG Results (Last 24 hours): 01/24/23 01/24/23 01/25/23 18:17 20:25 05:48 Glucose 126 H POC Glucose 152 H 180 H 01/25/23 01/25/23 08:30 12:24 Glucose POC Glucose 115 H 107 H OUTPATIENT ANTIDIABETIC REGIMEN: * Metformin 500 mg PO BID * HbA1c: 5.4% (01/24/23) ASSESSMENT: 01/25: * Madhu received 25 units of insulin yesterday, 10 units basal + 15 units bolus. BSGs were: 978-503-388-180 mg/dL. * Fasting BSG was 115 mg/dL this AM. Remains on dexamethasone 6 mg IV daily. * No change to insulin regimen today. 01/24: * 67 yo M admitted on 01/23/23 secondary to COVID-19 pneumonia. Pharmacy has been consulted to assist with inpatient glycemic management. Patient is a Type 2 diabetic as an outpatient. Please refer to outpatient regimen and most recent HbA1c above. * Received 8 units of basal last night once admitted. BSGs were: 103-118-139 mg/dL. * Fasting BSG is 128 mg/dL this AM. Will start a scaled basal dose this evening to provide 0-10 units depending on BSG. Patient continues on Dexamethasone 6 mg IV every 24 hours for COVID. * Will tighten Novolog to reflect weight/stress of 2 given steroids. PLAN FOR INPATIENT GLYCEMIC CONTROL: * Hold outpatient oral diabetes medications * Basal insulin * Lantus 0-10 units SC HS * Bolus insulin * NovoLog per scale ACHS or Q6hrs while NPO * Goal Range: Low 110 mg/dL - High 140 mg/dL * Correction Factor: 25 mg/dL/unit * Nutritional / Prandial insulin per carb ratio of 1 unit per 8 grams CHO consumed
--- NOTE | 2023-01-25 16:07 | Hospitalist Progress Note ---
Date of Service January 25, 2023 Assessment & Plan (1) Acute respiratory failure with hypoxia and hypercapnia: Plan: Secondary to COVID-19 +/- acute on chronic heart failure with preserved ejection fraction Hypercapnia is mostly chronic, Ok to take off BiPAP while awake, must use while sleeping and napping -Blood cultures - 1 of 4 with Bacilus at 24 hours - no fevers, not on antibiotics, patient feels well. Slight increase in WBC can be attributed to dexamethasone use. Will continue to monitor (2) COVID-19: Plan: Vaccinated and boosted - Symptom onset 01/19, will defer antivirals as also not clear how much of an effect this is having compared to CHF - Dexamethasone 6mg IV daily for 10 days, last day 02/01/2023 - 2 step done by respiratory - recommending 2L with activity - PT/OT COVID isolation precautions (3) Acute on chronic heart failure with preserved ejection fraction: Plan: Patient denies any weight gain and this is corroborated by his weight in the ER today (125kg today and 128kg on last discharge) suggest more of a COVID-19 component 01/23: CT with Cardiomegaly with mild interstitial pulmonary edema and bilateral pleural effusions. Atelectasis and lymphadenopathy. 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: Plan: Hemoglobin A1C 6.5 in 01/24: 5.4 Consult pharmacy for glycemic control in setting of dexamethasone use - Recommendation below Novolog: --Goal BSG Range: Low 110 mg/dL, High 140 mg/dL --Correction Factor: 25 mg/dL/unit --Carbohydrate ratio = 8 g/unit --BSGs ACHS if eating, q6h if npo (5) Gout: Plan: Allopurinol 300mg PO BID (6) Chronic a-fib: Plan: Continue Xarelto for anticoagulation Continue diltiazem and metoprolol for rate control (7) AISHA (obstructive sleep apnea): Plan: BiPAP HS and while napping Plan VTE Prophylaxis - Xarelto 20mg PO daily Diet - heart healthy, T2DM, low Na, fluid restrict 1500ml Disposition - continued inpatient stay, hopeful for discharge tomorrow Admission and Anticipated Discharge Date Admission Date: January 23, 2023 Subjective Patient seen sitting at the side of the bed. Reports that he continues to feel well. Reports that he worked with OT this morning and they also said he did well. Denies shortness of breath, despite is oxygen requirement. Good appetite. No CP Tele: Afib 70-90s Review of Systems Review of Systems: All systems reviewed & are unremarkable except as noted in Subjective Physical Exam Physical Exam: General: WN/WD, NAD, VS as above Resp: normal respiratory effort, lungs clear to auscultation CV: irregular, no murmur, Abd: normal bowel sounds, non tender, no hepatosplenomegaly Extremities: Moves all extremities, no edema Neuro: A&O x3, Skin: intact, no lesions noted Results & Data Results & Data Vital Signs (Past 12 Hours) Vital Signs Temp Pulse Pulse Pulse Pulse Pulse Resp 01/25/23 14:25 102 H 88 79 01/25/23 12:40 36.8 C 79 18 01/25/23 11:50 01/25/23 08:03 36.5 C 84 18 01/25/23 08:00 01/25/23 08:00 76 01/25/23 06:30 Resp Resp Resp BP Pulse Ox Pulse Ox Pulse Ox 01/25/23 14:25 22 18 20 91 84 L 01/25/23 12:40 115/72 95 01/25/23 11:50 01/25/23 08:03 133/84 94 01/25/23 08:00 01/25/23 08:00 01/25/23 06:30 Pulse Ox Pulse Ox Pulse Ox Pulse Ox O2 Del Method O2 Flow Rate O2 Flow Rate 01/25/23 14:25 91 2 01/25/23 12:40 Nasal Cannula 2 01/25/23 11:50 95 95 89 L 01/25/23 08:03 Oxymask 5 01/25/23 08:00 Nasal Cannula 5 01/25/23 08:00 01/25/23 06:30 Oxymask 8 O2 Flow Rate O2 Flow Rate O2 Flow Rate 01/25/23 14:25 01/25/23 12:40 01/25/23 11:50 5 5 5 01/25/23 08:03 01/25/23 08:00 01/25/23 08:00 01/25/23 06:30 Laboratory Results CBC, chemistry and CRP reviewed PG Care Time/CCT Total # of Minutes Spent Total Time Spent with Patient: Total time spent is greater than 50% in coordination of care (as documented) at patient's floor/unit and/or counseling patient: Coding Level of Care Code 93303 SUB INP/OBS CARE 350MIN Diagnoses Acute respiratory failure with hypoxia and hypercapnia J96.01; J96.02 COVID-19 U07.1 Acute on chronic heart failure with preserved ejection fraction I50.33 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
[2023-01-25] MEDS: RIVAROXABAN 20 MG TAB PO SCH (17:12)
[2023-01-25] MEDS: ATORVASTATIN 10 MG TAB PO SCH (17:12)
[2023-01-25] MEDS: LANTUS PER UNIT CHARGE SC SCH (20:30)
[2023-01-26 06:29] LABS: Hematocrit (blood only) 38.3 % (42.0-52.0); Hemoglobin 12.8 g/dl (14.0-18.0); Mean Corpuscular Hemoglobin 33.6 pg (25.0-34.0); Mean Corpuscular Hgb Conc 33.4 g/dL (32.0-36.0); Mean Corpuscular Volume 100.5 fL (80.0-100.0); Mean Platelet Volume 12.7 fL (9.4-12.4); Nucleated RBC # (auto) 0.02 K/uL (0.00-0.12); Nucleated RBC % (auto) 0.1 %; Platelet Count 155 K/uL (130-400); RDW Coefficient of Variation 17.4 % (11.5-14.5); RDW Standard Deviation 64.5 fL (36.4-46.3); Red Blood Count 3.81 M/uL (4.70-6.10); White Blood Count 13.83 K/ul (4.8-10.8)
[2023-01-26 06:49] LABS: C Reactive Protein 2.39 mg/dl (0-0.5); Calcium 9.4 mg/dl (8.6-10.3); Est GFR (African American) 88.6 ml/min; Est GFR (Non-African American) 76.5 ml/min
[2023-01-26] MEDS: INSULIN ASPART PER UNIT CHARGE SC SCH ×2 (08:48→12:43)
[2023-01-26] MEDS: METOPROLOL TARTRATE 100 MG TAB PO SCH (08:56)
[2023-01-26] MEDS: allopurinoL 300 MG TAB PO SCH (08:56)
[2023-01-26] MEDS: dexAMETHasone 6 MG in SYRINGE 0 ML IV SCH (08:56)
[2023-01-26] MEDS: dilTIAZem HCL 240 MG CAPCR PO SCH (08:57)
[2023-01-26] MEDS: FUROSEMIDE 40 MG/4 ML VIAL IV SCH (09:44)
--- NOTE | 2023-01-26 13:38 | Discharge Summary ---
Date of Service January 26, 2023 Admission HPI Per Admitting Provider Madhu Fermin is a 67 year old male who presents to the ER with shortness of breath and leg swelling since last Tuesday. No fever, chills, loss of taste, smell, appetite, diarrhea, chest pain, palpitations, presyncope or syncope. He reports having a mild clear mucus cough every now and again. He feels this is very similar to his November admission for pneumonia and CHF. He feels his legs are at baseline swelling and denies any weight gain. Principal Diagnosis COVID 19 Discharge Exam General: WN/WD, NAD, VS as above Resp: normal respiratory effort, lungs clear to auscultation CV: irregularly irregular, no murmur, Abd: normal bowel sounds, non tender, no hepatosplenomegaly Extremities: Moves all extremities, no edema Neuro: A&O x3, Skin: intact, no lesions noted Discharge Data Allergies Allergy/AdvReac Type Severity Reaction Status Date / Time dicyclomine [From Bentyl] Allergy Unknown CAN'T Verified 01/23/23 16:21 REMEMBER Consultations 01/23/23 17:12 ED Decision to Admit Stat Ordered Studies 01/23/23 15:51 CT angio chest PE protocol Stat Hospital Course (1) Acute respiratory failure with hypoxia and hypercapnia: Secondary to COVID-19 +/- acute on chronic heart failure with preserved ejection fraction Hypercapnia is mostly chronic, Ok to take off BiPAP while awake, must use while sleeping and napping -Blood cultures - 1 of 4 with Bacilus at 48 hours - no fevers, not on antibiotics, patient feels well. Slight increase in WBC can be attributed to dexamethasone use. Suspect contamination. - These will need followed up on at the 5 day joshua (2) COVID-19: Vaccinated and boosted - Symptom onset 01/19, will defer antivirals as also not clear how much of an effect this is having compared to CHF - Dexamethasone 6mg IV daily for 10 days. Switched to PO at discharge, last day 02/01/2023 - 2 step done by respiratory - recommending 2L with activity (3) Acute on chronic heart failure with preserved ejection fraction: Patient denies any weight gain and this is corroborated by his weight in the ER today (125kg today and 128kg on last discharge) suggest more of a COVID-19 component 01/23: CT with Cardiomegaly with mild interstitial pulmonary edema and bilateral pleural effusions. Atelectasis and lymphadenopathy. 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 O2 for exertion Total Time Total Time Spent Total Time Spent (In Minutes): 35 Discharge Plan Discharge Items Patient Disposition: Home - Self-Care Reason For Visit: ACUTE RESPIRATORY FAILURE WITH HYPOXIC AND HYPERCA Discharge Diagnosis: acute respiratory failure secondary to COVID-19 Activity: Resume your previous activity Activity Comment: wear 2 L of oxygen with activity Lifting: Gradually increase as tolerated Bathing: No limitations Exercise/Sports: Gradually increase as tolerated Driving/Machine Use: Resume 3 days after discharge Non-emergency contact: Primary Care Provider Call non-emergency contact if: you have any medication questions and your symptoms worsen Follow-up/Referrals: Nolan Soria MD [Primary Care Provider] - 02/04/23 3:00 pm (Will see Dr Morgan at the [place] office) Diet: Carb Consistent or DM2, Heart Healthy and Low Sodium (2gm) Fluids: 1800ml (7 cups) Addtl Attending Provider Instructions: Mr. Fermin, You were hospitalized after having shortness of breath and leg swelling. After testing, we determined this was caused by COVID-19. During her hospitalization you are receiving oxygen therapy and IV steroids to help treat the COVID virus. you are being discharged with home oxygen, you should wear 2 L whenever you are up and moving around. if you have a pulse oximeter at home, we would like your oxygen stats to be around 92 to 94%. you will also continue the steroids at home, your first dose will be tomorrow morning 12 and you will take these fo r 6 days. As we discussed, the steroids will likely increase your blood sugars. You should continue your metformin. Continue to wear your Cpap at home while you are sleeping. If you desire another COVID booster, you can wait 3 months before getting this. as we discussed, you had 4 blood cultures taken when you are in the ER. 1 of 4 of them was showing a likely contaminant bacteria at the 48-hour joshua. These will not be finalized until 5 days after they are drawn. Please check with your PCP on Sunday 01/28 to make sure that these remain unchanged unchanged. We did not give you the losartan during your hospital stay and your blood pressure were in normal range. Please continue to not take this until you see your PCP. Would recommend that you weigh yourself each morning wearing the same amount of clothes to monitor any weight gain from your Congestive Heart Failure. If you have any new or worsening symptoms, please contact your PCP or return to the ER. It was our pleasure taking care of you, Jodi Nino PA-C Pending Studies at Discharge: Yes (Blood cultures - no growth at 48 hours ) Stand-Alone Forms: [facility] AddressHealth, Smoking Cessation Medications and DC Order Prescriptions: New dexamethasone 6 mg tablet 6 mg PO DAILY Qty: 6 0RF Rx Instructions: start morning of 01/27 Continued albuterol sulfate 90 mcg/actuation aerosol powdr breath activated 2 inh inhalation Q4H PRN (Reason: shortness of breath or wheezing) Qty: 1 11RF allopurinol 300 mg tablet 300 mg PO BID Qty: 180 3RF atorvastatin 10 mg tablet 10 mg PO QPM Qty: 90 3RF Rx Instructions: take with evening meal for cholesterol furosemide 40 mg tablet 40 mg PO DAILY Qty: 90 3RF metformin 500 mg tablet 500 mg PO BID Qty: 180 3RF metoprolol tartrate 100 mg tablet 100 mg PO BID Qty: 180 3RF Xarelto 20 mg tablet 20 mg PO DAILY Qty: 90 3RF Rx Instructions: must administer with a meal/food diltiazem HCl 240 mg capsule,extended release 24hr 240 mg PO DAILY Qty: 30 0RF Held lisinopril 40 mg tablet 40 mg PO DAILY Qty: 90 3RF Hold Instructions: Resume on 02/09/23. Until you see your PCP, BP were low- normal during your stay Discontinued (DME) OneTouch Ultra Test Strip See Rx Instructions .Route Qty: 100 3RF Rx Instructions: As directed; once daily E11.9 (DME) lancets [OneTouch Delica Lancets] 33 gauge misc See Rx Instructions .Route Qty: 100 3RF Rx Instructions: As directed: once daily E11.9 Discharge Orders: Discharge Order (Routine); Ordered 01/26/23 Ordered By: Jodi Nino Admission Data Admit Date/Time: 01/23/23 18:28 Attending Provider: Kofi Odonnell Admit Provider: Indio Carvalho Primary Care Provider: Nolan Soria Other Providers: Indio Carvalho Other Interventions: Discharge Summary Assessment (RN) Last Done: 01/26/23 14:35 Supervising Physician Co-Signing Physician Notes During face to face encounter, I obtained a brief physical examination, discussed hospital stay with patient and discharge instructions with patient. I discussed discharge plan of care with REANNA Nino. I reviewed above note and agree with it except for the following: Patient was treated for COVID 19 with corticosteroids. Patient will require 2 liters on nasal cannula oxygen when ambulating. 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
== END 2023-01-26 15:47 | disposition home or self-care (01) | DRG 177 ==
LOC: ED 14:30 → EDINP 18:28 → SUATTDRO 18:28 → 4W 01-24 19:20

== ENCOUNTER 2023-04-20 11:13 | Inpatient (IN) ==
[2023-04-20 12:02] LABS: Basophils # (auto) 0.05 K/uL (0.00-0.20); Basophils % (auto) 0.6 %; Eosinophils # (auto) 0.09 K/uL (0.00-0.50); Hematocrit (blood only) 38.1 % (42.0-52.0); Hemoglobin 12.6 g/dl (14.0-18.0); Immature Granulocytes # (auto) 0.02 K/uL (0.01-0.20); Immature Granulocytes % (auto) 0.2 %; Lymphocytes # (auto) 0.94 K/uL (1.20-3.40); Lymphocytes % (auto) 10.6 %; Mean Corpuscular Hemoglobin 31.9 pg (25.0-34.0); Mean Corpuscular Hgb Conc 33.1 g/dL (32.0-36.0); Mean Corpuscular Volume 96.5 fL (80.0-100.0); Mean Platelet Volume 10.8 fL (9.4-12.4); Monocytes # (auto) 0.91 K/uL (0.11-0.59); Monocytes % (auto) 10.3 %; Neutrophils # (auto) 6.82 K/uL (1.40-6.50); Neutrophils % (auto) 77.3 %; Nucleated RBC # (auto) 0.02 K/uL (0.00-0.12); Nucleated RBC % (auto) 0.2 %; Platelet Count 284 K/uL (130-400); RDW Coefficient of Variation 17.2 % (11.5-14.5); RDW Standard Deviation 60.4 fL (36.4-46.3); Red Blood Count 3.95 M/uL (4.70-6.10); White Blood Count 8.83 K/ul (4.8-10.8)
[2023-04-20 12:16] LABS: Alanine Aminotransferase 9 U/L (7-52); Albumin Globulin Ratio 1.4 (0.9-2); Albumin Level 3.9 gm/dl (3.4-5.0); Alkaline Phosphatase 117 U/L (34-104); Anion Gap 6 (3-11); Aspartate Aminotransferase 15 U/L (13-39); BUN Creatinine Ratio 24.8 (10-20); Bilirubin,Total 0.9 mg/dl (0.2-1.0); Blood Urea Nitrogen 26 mg/dl (6-23); Calcium 9.3 mg/dl (8.6-10.3); Carbon Dioxide 31 mmol/L (21-32); Chloride 104 mmol/L (98-107); Est GFR (African American) 83.5 ml/min; Est GFR (Non-African American) 72.1 ml/min; Globulin 2.8 gm/dl (2.5-4.0); Glucose 125 mg/dl (70-99(Fasting)); Lipase 56 U/L (11-82); Potassium 4.2 mmol/L (3.5-5.1); Sodium 141 mmol/L (136-145); Total Protein 6.7 gm/dl (6.0-8.3)
--- NOTE | 2023-04-20 12:22 | Emergency Department Note ---
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 Over the last week worsening shortness of breath and weakness. Not able to get out of chair or ambulate much due to worsening shortness of breath. Increased swelling of the legs right greater than left. Did have a traumatic hematoma to his right leg about 6 weeks ago which has been slowly resolving. Was on antibiotics for possible infection here which did improve the redness to some degree. No fevers reported. Some cough. Denies significant congestion or chest pain. Denies abdominal pain or nausea or vomiting. Not on oxygen at home. Oxygen levels into the 70s at home. Using BiPAP at night. Using his home medications including anticoagulation with Xarelto as well as his Lasix. Urinating with this by his report. Some pain to his right raza and leg reported. PAST MEDICAL HISTORY: As noted above MEDICATIONS: Reviewed home medication states compliance with Lasix and Xarelto SOCIAL HISTORY: Former smoker, , lives at home PHYSICAL EXAM: GENERAL: alert and oriented in no acute distress on stretcher Head: normocephalic and atraumatic EYES: No injection, discharge or icterus. NECK: Trachea midline. Supple. ENT: Mucous membranes pink and moist. Pharynx without erythema or exudate. LUNGS: Airway patent. No retractions. Breath sounds crackles in the bases. HEART: irregularly irregular rate and rhythm. No chest wall tenderness ABDOMEN: Soft and non-tender, without guarding or rebound. SKIN: Acyanotic, warm, dry, without rashes EXTREMITIES: No open wounds with some dry flaking skin on the right. Right greater than left calf swelling 1+ on the left and 3+ on the right. Mild erythema and chronic stasis changes here. NEUROLOGICAL: No focal deficits. No aphasia. No facial droop or slurred speech. Ambulatory. EK beats. Atrial fibrillation with ventricular sponsor. No acute ST segment elevation or depression QTc 410. CONTINUOUS CARDIAC MONITORING: was ordered and showed a heart rate of 50s-70s bpm Alma-fib Patient's laboratory studies and imaging reviewed. Differential includes Reactive airway disease, pneumonia, pneumothorax, COPD, CHF, infections, cardiac ischemia, pulmonary embolism, musculoskeletal, gastrointestinal, as well as other pathologies. IMPRESSION/MEDICAL DECISION MAKING: Patient history of A-fib on Xarelto lowering suspicion for VTE. No fevers. Respiratory viral panel sent. Significant hypoxic even with nasal cannula supplementation. Placed on BiPAP with good improvement. Seems clinically fluid overloaded. Took his morning dose of Lasix and given additional here. No chest pain. No abdominal pain. Well-appearing. Sent for CT of the chest with evidence of some effusion and pulmonary edema but no evidence of pneumonia. Doubt this is infectious. Procalcitonin normal and WBC normal. Minimal anemia of 12.6. No significant renal dysfunction. Given additional IV dose of Lasix. Doing well and oxygen rapidly improving on BiPAP. Seems like this is CHF mediated. Discussed with patient and family. Will bring into the hospital and hospitalist team contacted. DIAGNOSIS: Acute hypoxic respiratory failure, CHF, long-term anticoagulation DISPOSITION: Hospitalist will evaluate Patient was agreeable with this plan. Critical Care I have personally spent 34 minutes of critical care time in the direct management of this patient. This includes bedside care, interpretation of diagnostic studies, and testing, discussion with consultants, patient, and family members, and other required patient management activities. These 34 minutes is in excess of all separately billable procedures. 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 Venous insufficiency Left leg cellulitis Diabetic toe ulcer Right knee DJD Controlled diabetes mellitus with diabetic autonomic neuropathy Knee pain, right Atopic dermatitis Atrial fibrillation, persistent Benign essential hypertension Chronic obstructive pulmonary disease Gout Hypercholesterolemia Localized primary osteoarthritis of lower leg Medicare annual wellness visit, subsequent AISHA (obstructive sleep apnea) Surgical History Status post right hip replacement H/O total hip arthroplasty History of vasectomy Previous back surgery Family History Mother Coronary heart disease Hypertension Diabetes Denies family history of Ovarian cancer Prostate cancer Myocardial infarction Breast cancer Colorectal cancer Social History Smoking Status: Former smoker Age Started Using Tobacco: 10; Age Quit Using Tobacco: 48; Second Hand Exposure: Yes; Do You Dip or Chew Tobacco: No; Hx Alcohol Use: No Hx Substance Use: No Preferred Language: Angolan Communication Ability: Effective Visual Impairment: No Limitations Senior 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 Required: No Beliefs That Will Affect Care: None marital status: Current Living Situation: Family Current Living Situation Comment: spouse and brother in law current occupational status: disabled Feels Safe at Home: Yes Childhood Exposure to Second-Hand Smoke: Yes Diet: DASH caffeine: Yes Seatbelt Use: always Sunscreen Use: No Assistive Devices: Cane Allergies Allergies Allergy/AdvReac Type Severity Reaction Status Date / Time dicyclomine [From Bentyl] Allergy Unknown CAN'T Verified 04/20/23 14:11 REMEMBER Home Meds Previous Rx's Medication Instructions Recorded Discontinue oxygen #1 ea 02/24/23 albuterol sulfate 90 mcg/actuation 2 inh inhalation Q4H PRN shortness 03/18/23 breath activated powder inhaler of breath or wheezing #1 ea allopurinol 300 mg tablet 300 mg PO BID #180 tabs 03/18/23 atorvastatin 10 mg tablet 10 mg PO QPM #90 tabs 03/18/23 diltiazem HCl 240 mg 240 mg PO DAILY #90 caps 03/18/23 capsule,extended release 24 hr furosemide 40 mg tablet 40 mg PO DAILY #90 tabs 03/18/23 lisinopril 20 mg tablet 20 mg PO DAILY #90 tabs 03/18/23 rivaroxaban 20 mg tablet (Xarelto) 20 mg PO DAILY #90 tabs 03/18/23 metformin 500 mg tablet 500 mg PO BID #180 tabs 03/21/23 metoprolol tartrate 100 mg tablet 100 mg PO BID #180 tabs 03/22/23 Results & Data (ED) Vital Signs Vital Signs - 24 hr 04/20/23 11:32 04/20/23 12:36 04/20/23 12:39 Temperature 36.4 C L Temperature Source Temporal Artery Scan Pulse Rate 54 L 64 Pulse Rate [Apical] Pulse Rate from SpO2 Sensor Respiratory Rate 18 Respiratory Effort / Characteristics Respiratory Depth Normal Respiratory Pattern Blood Pressure 96/57 L Blood Pressure [Right Arm] Blood Pressure Mean 70 Blood Pressure Mean [Right Arm] Pulse Oximetry 79 L 96 Oxygen Delivery Method Room Air BiPAP Oxygen Flow Rate Fraction of Inspired Oxygen Sepsis Recent Fever Within 48 Hours No Sepsis New/Unexplained Change in Mental Status No Sepsis Action Taken by Nursing No Action Required 04/20/23 12:39 04/20/23 12:39 04/20/23 12:39 Temperature Temperature Source Pulse Rate 67 Pulse Rate [Apical] 57 L Pulse Rate from SpO2 Sensor Respiratory Rate 26 H 32 H Respiratory Effort / Characteristics Spontaneous Respiratory Depth Normal Respiratory Pattern Regular Blood Pressure Blood Pressure [Right Arm] 139/84 Blood Pressure Mean Blood Pressure Mean [Right Arm] 102 Pulse Oximetry 96 96 96 Oxygen Delivery Method BiPAP BiPAP Oxygen Flow Rate Fraction of Inspired Oxygen 50 Sepsis Recent Fever Within 48 Hours Sepsis New/Unexplained Change in Mental Status Sepsis Action Taken by Nursing 04/20/23 14:01 04/20/23 15:18 Temperature Temperature Source Pulse Rate Pulse Rate [Apical] 58 L Pulse Rate from SpO2 Sensor 72 Respiratory Rate 22 26 H Respiratory Effort / Characteristics Respiratory Depth Respiratory Pattern Blood Pressure Blood Pressure [Right Arm] 112/77 Blood Pressure Mean Blood Pressure Mean [Right Arm] 88 Pulse Oximetry 98 85 L Oxygen Delivery Method BiPAP Nasal Cannula Oxygen Flow Rate 6 Fraction of Inspired Oxygen Sepsis Recent Fever Within 48 Hours Sepsis New/Unexplained Change in Mental Status Sepsis Action Taken by Nursing Laboratory Data 04/20/23 11:45 04/20/23 11:45 Lab Results 04/20/23 04/20/23 Range/Units 11:45 13:36 WBC 8.83 (4.8-10.8) K/ul RBC 3.95 L (4.70-6.10) M/uL Hgb 12.6 L (14.0-18.0) g/dl Hct 38.1 L (42.0-52.0) % MCV 96.5 (80.0-100.0) fL MCH 31.9 (25.0-34.0) pg MCHC 33.1 (32.0-36.0) g/dL RDW Std Deviation 60.4 H (36.4-46.3) fL RDW Coeff of Marce 17.2 H (11.5-14.5) % Plt Count 284 (130-400) K/uL MPV 10.8 (9.4-12.4) fL Immature Gran % (Auto) 0.2 % Neut % (Auto) 77.3 % Lymph % (Auto) 10.6 % Weld % (Auto) 10.3 % Eos % (Auto) 1.0 % Baso % (Auto) 0.6 % Neut # (Auto) 6.82 H (1.40-6.50) K/uL Lymph # (Auto) 0.94 L (1.20-3.40) K/uL Weld # (Auto) 0.91 H (0.11-0.59) K/uL Eos # (Auto) 0.09 (0.00-0.50) K/uL Baso # (Auto) 0.05 (0.00-0.20) K/uL Immature Gran # (Auto) 0.02 (0.01-0.20) K/uL Absolute Nucleated RBC 0.02 (0.00-0.12) K/uL Nucleated RBC % (auto) 0.2 % Sodium 141 (136-145) mmol/L Potassium 4.2 (3.5-5.1) mmol/L Chloride 104 (98-107) mmol/L Carbon Dioxide 31 (21-32) mmol/L Anion Gap 6 (3-11) BUN 26 H (6-23) mg/dl Creatinine 1.05 (0.6-1.4) mg/dl Est Cr Clr Drug Dosing Not Reportable Est GFR ( Amer) 83.5 ml/min Est GFR (Non-Af Amer) 72.1 ml/min BUN/Creatinine Ratio 24.8 H (10-20) Glucose 125 H (70-99(Fasting)) mg/dl Calcium 9.3 (8.6-10.3) mg/dl Total Bilirubin 0.9 (0.2-1.0) mg/dl AST 15 (13-39) U/L ALT 9 (7-52) U/L Alkaline Phosphatase 117 H (34-104) U/L Troponin I High Sens 4.1 (0-20) pg/ml B-Natriuretic Peptide 230 H (0-100) pg/ml Total Protein 6.7 (6.0-8.3) gm/dl Albumin 3.9 (3.4-5.0) gm/dl Globulin 2.8 (2.5-4.0) gm/dl Albumin/Globulin Ratio 1.4 (0.9-2) Lipase 56 (11-82) U/L Procalcitonin 0.04 (0-0.5) ng/ml Urine Color Yellow Urine Appearance Clear (Clear) Urine pH 5.5 (4.5-7.5) Ur Specific [place] 1.010 (1.000-1.030) Urine Protein Negative (Negative) Urine Glucose (UA) Negative (Negative) Urine Ketones Negative (Negative) Urine Blood Negative (Negative) Urine Nitrite Negative (Negative) Urine Bilirubin Negative (Negative) Urine Urobilinogen Negative (Negative) Ur Leukocyte Esterase Negative (Negative) Adenovirus (PCR) Not Detected (NotDetected) B. pertussis DNA (PCR) Not Detected (NotDetected) B.parapertussis DNA PCR Not Detected (NotDetected) C. pneumoniae DNA (PCR) Not Detected (NotDetected) Coronavirus OC43 (PCR) Not Detected (NotDetected) Coronavirus HKU1 (PCR) Not Detected (NotDetected) Coronavirus 229E (PCR) Not Detected (NotDetected) SARS-CoV-2 (PCR) Not Detected (NotDetected) Coronavirus NL63 (PCR) Not Detected (NotDetected) Human Metapneumovir PCR Not Detected (NotDetected) Influenza Type A (PCR) Not Detected (NotDetected) Influenza Type B (PCR) Not Detected (NotDetected) M. pneumoniae (PCR) Not Detected (NotDetected) Parainfluenza 1 (PCR) Not Detected (NotDetected) Parainfluenza 2 (PCR) Not Detected (NotDetected) Parainfluenza 3 (PCR) Not Detected (NotDetected) Parainfluenza 4 (PCR) Not Detected (NotDetected) RSV (PCR) Not Detected (NotDetected) Entero/Rhino (PCR) Not Detected (NotDetected) Administered Medications Discontinued Medications Furosemide (Furosemide 40 Mg/4 Ml Vial) 40 mg IV ONE ONE Stop: 04/20/23 12:15 Last Admin: 04/20/23 12:37 Dose: 40 mg Documented By: JENNIFER Imaging Data Radiologist's Impression: Chest X-Ray 04/20/23 11:43 XR chest 1V portable HISTORY: Chest pain, nonspecific COMPARISON: Chest 01/23/2023. FINDINGS: No pneumothorax. The heart remains enlarged. Small bilateral pleural effusions have slightly progressed. Calcified granuloma again noted within the left midlung zone. Bibasilar patchy densities are again noted. Hazy peripheral density within the left midlung zone has also progressed. This was demonstrated to be a loculated component of the pleural effusion on the prior chest CT. Emphysema again noted. IMPRESSION: 1. Small bilateral pleural effusions have slightly progressed including the loculated component of the left pleural effusion. 2. Cardiomegaly and pulmonary edema again noted. 3. Patchy bibasilar densities persist. ACT 112: Negative or not required by law. Electronically signed by: Toby Deleon M.D. 04/20/2023 1:[address] 04/20/23 12:13 CT OF THE CHEST WITHOUT IV CONTRAST CLINICAL HISTORY: Shortness of breath. Possible congestive heart failure. COMPARISON STUDY: Chest CT and chest radiograph January 23, 2023. CT DOSE: 886.78 mGy.cm TECHNIQUE: Axial images of the chest were obtained without IV contrast. Images were reviewed in the axial, sagittal, and coronal planes. IV contrast was not administered for this examination. Automated exposure control was utilized for the study. A dose lowering technique was utilized adhering to the principles of ALARA. FINDINGS: Mildly enlarged mediastinal lymph nodes are similar to CT of January 23, 2023. Index right paratracheal lymph node on image 102 of 237 measures 2.3 x 1.6 cm. There are several calcified prevascular nodes. The heart is mildly enlarged. There is no pericardial effusion. No pneumothorax. A small loculated left pleural effusion with fluid along the fissure has mildly increased in size since CT of January 23, 2023. A small to moderate right pleural effusion has slightly increased in size. Subpleural right lower lobe opacity favors atelectasis. There is no consolidation to suggest pneumonia. Underlying emphysema there is interlobular septal thickening and mild groundglass opacities within the lungs. There is a calcified granuloma within the lingula. The central airways are patent. Bilateral gynecomastia is incidentally noted. Low attenuation bilateral adrenal nodules are unchanged. These favor adenomas. IMPRESSION: 1. Cardiomegaly with mild pulmonary edema. 2. Small to moderate right pleural effusion. Small loculated left pleural effusion. These effusions have mildly increased in size since prior CT. 3. Emphysema. 4. No change in mediastinal lymphadenopathy. This may be due to chronic pulmonary edema. ACT 112: Negative or not required by law. Electronically signed by: Tomas Parra M.D. 04/20/2023 12:49 PM Venous Doppler Study 04/20/23 13:41 RIGHT LOWER EXTREMITY VENOUS DOPPLER HISTORY: Right leg errythma/redness- r/o DVT COMPARISON STUDY: None. FINDINGS: There is normal compressibility, flow, and augmentation within the right lower extremity deep venous system. There is diffuse subcutaneous edema. IMPRESSION: No DVT within the right lower extremity ACT 112: Negative or not required by law. Electronically signed by: Toby Deleon M.D. 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 Patient Disposition: Being Evaluated by Hospitalist Forms Stand Alone Forms: My [facility] Prescriptions Prescriptions: No Action (DME) Discontinue oxygen See Rx Instructions .Route .MEDSUPPLY Qty: 1 0RF Rx Instructions: As directed albuterol sulfate 90 mcg/actuation aerosol powdr breath activated 2 inh inhalation Q4H PRN (Reason: shortness of breath or wheezing) Qty: 1 1RF allopurinol 300 mg tablet 300 mg PO BID Qty: 180 1RF atorvastatin 10 mg tablet 10 mg PO QPM Qty: 90 1RF Rx Instructions: take with evening meal for cholesterol diltiazem HCl 240 mg capsule,extended release 24hr 240 mg PO DAILY Qty: 90 1RF furosemide 40 mg tablet 40 mg PO DAILY Qty: 90 1RF lisinopril 20 mg tablet 20 mg PO DAILY Qty: 90 1RF Hold Instructions: Resume on 02/09/23. Until you see your PCP, BP were low- normal during your stay Xarelto 20 mg tablet 20 mg PO DAILY Qty: 90 1RF Rx Instructions: must administer with a meal/food metformin 500 mg tablet 500 mg PO BID Qty: 180 1RF metoprolol tartrate 100 mg tablet 100 mg PO BID Qty: 180 3RF Referrals Referrals: Soria,Nolan, MD [Primary Care Provider] - Discharge Problem: Respiratory failure Qualifiers: Chronicity: acute Respiratory failure complication: hypoxia Qualified Code(s): J96.01 - Acute respiratory failure with hypoxia
[2023-04-20 12:23] LABS: Troponin I High Sensitivity 4.1 pg/ml (0-20)
[2023-04-20] MEDS: FUROSEMIDE 40 MG/4 ML VIAL IV ONE ×2 (12:37→19:51)
--- NOTE | 2023-04-20 12:51 | CT Scan Report ---
CT OF THE CHEST WITHOUT IV CONTRAST CLINICAL HISTORY: Shortness of breath. Possible congestive heart failure. COMPARISON STUDY: Chest CT and chest radiograph January 23, 2023. CT DOSE: 886.78 mGy.cm TECHNIQUE: Axial images of the chest were obtained without IV contrast. Images were reviewed in the axial, sagittal, and coronal planes. IV contrast was not administered for this examination. Automat ed exposure control was utilized for the study. A dose lowering technique was utilized adhering to t he principles of ALARA. FINDINGS: Mildly enlarged mediastinal lymph nodes are similar to CT of January 23, 2023. Index right paratracheal lymph node on image 102 of 237 measures 2.3 x 1.6 cm. There are several calcified preva scular nodes. The heart is mildly enlarged. There is no pericardial effusion. No pneumothorax. A smal l loculated left pleural effusion with fluid along the fissure has mildly increased in size since CT of January 23, 2023. A small to moderate right pleural effusion has slightly increased in size. Subpl eural right lower lobe opacity favors atelectasis. There is no consolidation to suggest pneumonia. Un derlying emphysema there is interlobular septal thickening and mild groundglass opacities within the lungs. There is a calcified granuloma within the lingula. The central airways are patent. Bilateral g ynecomastia is incidentally noted. Low attenuation bilateral adrenal nodules are unchanged. These fav or adenomas. IMPRESSION: 1. Cardiomegaly with mild pulmonary edema. 2. Small to moderate right pleural effusion. Small loculated left pleural effusion. These effusions h ave mildly increased in size since prior CT. 3. Emphysema. 4. No change in mediastinal lymphadenopathy. This may be due to chronic pulmonary edema. ACT 112: Negative or not required by law. Electronically signed by: Tomas Parra M.D. 04/20/2023 12:49 PM
--- NOTE | 2023-04-20 13:11 | XRay Report ---
XR chest 1V portable HISTORY: Chest pain, nonspecific COMPARISON: Chest 01/23/2023. FINDINGS: No pneumothorax. The heart remains enlarged. Small bilateral pleural effusions have slightl y progressed. Calcified granuloma again noted within the left midlung zone. Bibasilar patchy densitie s are again noted. Hazy peripheral density within the left midlung zone has also progressed. This was demonstrated to be a loculated component of the pleural effusion on the prior chest CT. Emphysema ag ain noted. IMPRESSION: 1. Small bilateral pleural effusions have slightly progressed including the loculated component of th e left pleural effusion. 2. Cardiomegaly and pulmonary edema again noted. 3. Patchy bibasilar densities persist. ACT 112: Negative or not required by law. Electronically signed by: oTby Deleon M.D. 04/20/2023 1:10 PM
[2023-04-20 13:52] LABS: Adenovirus PCR Not Detected (NotDetected); Bordetella parapertussis PCR Not Detected (NotDetected); Bordetella pertussis PCR Not Detected (NotDetected); Chlamydia pneumoniae PCR Not Detected (NotDetected); Coronavirus 229E PCR Not Detected (NotDetected); Coronavirus CoV-2 (COVID19)PCR Not Detected (NotDetected); Coronavirus HKU1 PCR Not Detected (NotDetected); Coronavirus NL63 PCR Not Detected (NotDetected); Coronavirus OC43PCR Not Detected (NotDetected); Human Metapneumovirus PCR Not Detected (NotDetected); Influenza A PCR Not Detected (NotDetected); Influenza B PCR Not Detected (NotDetected); Mycoplasma pneumoniae PCR Not Detected (NotDetected); Parainfluenza Virus 1 PCR Not Detected (NotDetected); Parainfluenza Virus 2 PCR Not Detected (NotDetected); Parainfluenza Virus 3 PCR Not Detected (NotDetected); Parainfluenza Virus 4 PCR Not Detected (NotDetected); Respiratory Syncytial VirusPCR Not Detected (NotDetected); Rhinovirus/Enterovirus PCR Not Detected (NotDetected)
--- NOTE | 2023-04-20 14:02 | History & Physical Report ---
Date of Service April 20, 2023 Assessment & Plan (1) Hypoxic respiratory failure: Plan: Patient presents with acute hypoxic respiratory failure at this time appears to be secondary to acute heart failure exacerbation - His CT scan of his chest is with atelectasis and bilateral pleural effusions with RT > LT- likely related to fluid volume status and atelectasis - Doubt PE at this time secondary to quick response to NIPPV and providing oxygen - Respiratory biofire negative, no opacification on CXR, no WBC, no sputum production - doubt infective at this time - BiPAP wean down to nasal cannula maintain spo2 >90% - BiPAP at night and/or sleeping - Continue JALEEL- patient reports that he does not use this at home (2) Acute on chronic heart failure with preserved ejection fraction: Plan: Acute on chronic heart failure exacerbation - Bilateral lower extremity edema, with orthopnea and dyspnea at rest and exertion- reports dietary indiscretion with salt - Patient does not follow with Cardiology or the CHF clinic- he does not weigh himself at home - Lasix 40mg IV given in EMD with good initial response in addition to his 40mg Lasix he took this morning - He is without evidence of end organ failure at this time and appears more consistent with right sided failure/cor pulmonale- diurese again this evening with lasix 40mg IV - Appreciate CHF clinic evaluation- Continue BB and NADIRA - Repeat ECHO - Telemetry overnight while diuresing as well as trend HsCTNI (3) Abnormal CT scan: Plan: Abnormal lung CT scan with interlobular and septal thickening- patient likely has some aspect of COPD/Emphysema- however is without recent PFTS - He may likely benefit from further work up as an outpatient and inhalers - His pleural effusions at this time are small and no need for invasive intervention at this time- diurese and follow with CXR (4) Pleural effusion: Plan: As above likely related to fluid volume status (5) Lower extremity edema: Plan: Right > Left - Duplex right lower extremity- rule out DVT - if positive will need to change anticoagulation (6) Anticoagulant long-term use: Plan: Patient with chronic atrial fibrillation - continue with Xarelto - currently rate controlled - Continue with Metoprolol and Diltiazem- dilt recently increased - Keep Mag ~2.0 and K ~4.0 (7) Chronic a-fib: Plan: As above- rate controlled ECHO Continue Xarelto (8) 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 Patient was brought to the hospital today for complaints of difficulty breathing and low oxygen saturations at home. Patient reports that since he has been having increasing shortness of breath as well as increased swelling of his legs. He has also not been able to lay flat since and has been sleeping in the recliner. He is accompanied by his and she reports that when he becomes short of breath like this, that he becomes more sedentary and has not been doing much over the past few days. Patient states that this is because it was so hard for him to catch his breath. He has not missed any doses of his Xarelto at home. His shortness of breath is not associated with any cough, chest pain, mucous production, fever or chills. He is not on oxygen at home. Patient does have an old wound to his right lower leg, which he reports he shut it in the truck door in [facility], he was noted to have a hematoma at that time and was also treated with abx therapy. The right leg is also larger in size compared to the left leg, and do have concern of possible DVT. In the EMD the patient was noted to be in the 70s via pulse oximetry on room air on arrival, using accessory muscles to breathe. He was placed on BiPAP at that time and had good response with improvement in his oxygenation on 50% FIO2 and NIPPV. He had routine labs performed to include HsCTNI, BNP. He had a non-contrasted CT scan of his chest performed, CXR, and ECG. His ECG was without STEMI and no complaints of chest pain. Initial HsCTNI was also negative. His CT scan of his chest was noted with interlobular septal thickening and bilateral plueral effusions RT > LT and left with small loculation. He has had PFTs in the past, however not available for review and states that he does not want to have those done again. He is not on any inhlaers at home. Patient will be admitted to medical telemetry for IV diuresis, continuation of BiPAP PRN and at night. Will obtain repeat ECHO and referral to CHF clinic. CODE: FULL Allergies Allergy/AdvReac Type Severity Reaction Status Date / Time dicyclomine [From Bentyl] Allergy Unknown CAN'T Verified 04/20/23 14:11 REMEMBER Home Medications Medication Instructions Recorded Confirmed Type Discontinue oxygen #1 ea 02/24/23 04/20/23 Rx albuterol sulfate 90 mcg/actuation 2 inh inhalation Q4H PRN shortness 03/18/23 04/20/23 Rx breath activated powder inhaler of breath or wheezing #1 ea allopurinol 300 mg tablet 300 mg PO BID #180 tabs 03/18/23 04/20/23 Rx atorvastatin 10 mg tablet 10 mg PO QPM #90 tabs 03/18/23 04/20/23 Rx diltiazem HCl 240 mg 240 mg PO DAILY #90 caps 03/18/23 04/20/23 Rx capsule,extended release 24 hr furosemide 40 mg tablet 40 mg PO DAILY #90 tabs 03/18/23 04/20/23 Rx lisinopril 20 mg tablet 20 mg PO DAILY #90 tabs 03/18/23 04/20/23 Rx rivaroxaban 20 mg tablet (Xarelto) 20 mg PO DAILY #90 tabs 03/18/23 04/20/23 Rx metformin 500 mg tablet 500 mg PO BID #180 tabs 03/21/23 04/20/23 Rx metoprolol tartrate 100 mg tablet 100 mg PO BID #180 tabs 03/22/23 04/20/23 Rx 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 Venous insufficiency Left leg cellulitis Diabetic toe ulcer Right knee DJD Controlled diabetes mellitus with diabetic autonomic neuropathy Knee pain, right Atopic dermatitis Atrial fibrillation, persistent Benign essential hypertension Chronic obstructive pulmonary disease Gout Hypercholesterolemia Localized primary osteoarthritis of lower leg Medicare annual wellness visit, subsequent AISHA (obstructive sleep apnea) Surgical History Status post right hip replacement H/O total hip arthroplasty History of vasectomy Previous back surgery Family History Mother Coronary heart disease Hypertension Diabetes Denies family history of Ovarian cancer Prostate cancer Myocardial infarction Breast cancer Colorectal cancer Social History Smoking Status: Former smoker Age Started Using Tobacco: 10; Age Quit Using Tobacco: 48; Second Hand Exposure: Yes; Do You Dip or Chew Tobacco: No; Hx Alcohol Use: No Hx Substance Use: No Preferred Language: Sri Lankan Communication Ability: Effective Visual Impairment: No Limitations 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 Beliefs That Will Affect Care: None marital status: Current Living Situation: Family Current Living Situation Comment: spouse and brother in law current occupational status: disabled Feels Safe at Home: Yes Childhood Exposure to Second-Hand Smoke: Yes Diet: DASH caffeine: Yes Seatbelt Use: always Sunscreen Use: No Assistive Devices: Cane Review of Systems Review of Systems: REVIEW OF SYSTEMS: Constitutional: No fever, sweats or chills Eyes: No diplopia, no worsening or blurred vision ENT: normal hearing, no trouble swallowing Respiratory:(+) dyspnea at rest or on exertion, No cough, sputum, Cardiovascular: No chest pain, tightness or palpitations Abdomen: No pain, nausea, vomiting, diarrhea or constipation Musculoskeletal: (+) chronic right knee pain, right leg swelling with erythema, Neurologic: No weakness, numbness/tingling, or balance problems Psychiatric: No anxiety or depression Skin: erythema and dried scaling skin right leg Physical Exam Physical Exam: PHYSICAL EXAM: General: awake, alert, no apparent distress Head: Normocephalic, atraumatic ENT: PERRL, EOMI, no pharyngeal exudate, mucous membranes moist Neuro: AAO x 3, speech clear and appropriate, strength intact bilaterally 5/5, sensation intact and equal all extremities and dermatomes, no pronator drift Chest: equal rise and fall of the chest, no accessory muscle use, on bipap, decreased in bases, fine crackles throughout Cardiac: irregular rate and rhythm, telemetry reviewed- afib, skin warm dry, cap refill <3 seconds, peripheral pulses +2 no JVD, +3 edema to bilateral lower extremities to knee, right > left GI: NABS x 4 quadrants, soft, nontender to palpation, no rebound, guarding or tenderness : Spontaneously voiding, no pain, no CVA tenderness, Skin: erythema to right leg - has been same since end february per , dried scaling skin noted, wound healed without drainage Results & Data Results & Data Vital Signs (Past 12 Hours) Vital Signs Temp Pulse Pulse Resp BP BP Pulse Ox 04/20/23 12:39 67 32 H 96 04/20/23 12:39 96 04/20/23 12:39 57 L 26 H 139/84 96 04/20/23 12:39 96 04/20/23 12:36 64 04/20/23 11:32 36.4 C L 54 L 18 96/57 L 79 L O2 Del Method FiO2 04/20/23 12:39 50 04/20/23 12:39 BiPAP 04/20/23 12:39 BiPAP 04/20/23 12:39 BiPAP 04/20/23 12:36 04/20/23 11:32 Room Air Laboratory Results Abnormal lab results 04/20/23 Range/Units 11:45 RBC 3.95 L (4.70-6.10) M/uL Hgb 12.6 L (14.0-18.0) g/dl Hct 38.1 L (42.0-52.0) % RDW Std Deviation 60.4 H (36.4-46.3) fL RDW Coeff of Marce 17.2 H (11.5-14.5) % Neut # (Auto) 6.82 H (1.40-6.50) K/uL Lymph # (Auto) 0.94 L (1.20-3.40) K/uL [place] # (Auto) 0.91 H (0.11-0.59) K/uL BUN 26 H (6-23) mg/dl BUN/Creatinine Ratio 24.8 H (10-20) Glucose 125 H (70-99(Fasting)) mg/dl Alkaline Phosphatase 117 H (34-104) U/L B-Natriuretic Peptide 230 H (0-100) pg/ml Diagnostic Findings Chest X-Ray 04/20/23 11:43 XR chest 1V portable HISTORY: Chest pain, nonspecific COMPARISON: Chest 01/23/2023. FINDINGS: No pneumothorax. The heart remains enlarged. Small bilateral pleural effusions have slightly progressed. Calcified granuloma again noted within the left midlung zone. Bibasilar patchy densities are again noted. Hazy peripheral density within the left midlung zone has also progressed. This was demonstrated to be a loculated component of the pleural effusion on the prior chest CT. Emphysema again noted. IMPRESSION: 1. Small bilateral pleural effusions have slightly progressed including the locu lated component of the left pleural effusion. 2. Cardiomegaly and pulmonary edema again noted. 3. Patchy bibasilar densities persist. ACT 112: Negative or not required by law. Electronically signed by: Toby Deleon M.D. 04/20/2023 1:[address] 04/20/23 12:13 CT OF THE CHEST WITHOUT IV CONTRAST CLINICAL HISTORY: Shortness of breath. Possible congestive heart failure. COMPARISON STUDY: Chest CT and chest radiograph January 23, 2023. CT DOSE: 886.78 mGy.cm TECHNIQUE: Axial images of the chest were obtained without IV contrast. Images were reviewed in the axial, sagittal, and coronal planes. IV contrast was not administered for this examination. Automated exposure control was utilized for the study. A dose lowering technique was utilized adhering to the principles of ALARA. FINDINGS: Mildly enlarged mediastinal lymph nodes are similar to CT of January 23, 2023. Index right paratracheal lymph node on image 102 of 237 measures 2.3 x 1.6 cm. There are several calcified prevascular nodes. The heart is mildly enlarged. There is no pericardial effusion. No pneumothorax. A small loculated left pleural effusion with fluid along the fissure has mildly increased in size since CT of January 23, 2023. A small to moderate right pleural effusion has slightly increased in size. Subpleural right lower lobe opacity favors atelectasis. There is no consolidation to suggest pneumonia. Underlying emphysema there is interlobular septal thickening and mild groundglass opacities within the lungs. There is a calcified granuloma within the lingula. The central airways are patent. Bilateral gynecomastia is incidentally noted. Low attenuation bilateral adrenal nodules are unchanged. These favor adenomas. IMPRESSION: 1. Cardiomegaly with mild pulmonary edema. 2. Small to moderate right pleural effusion. Small loculated left pleural effusion. These effusions have mildly increased in size since prior CT. 3. Emphysema. 4. No change in mediastinal lymphadenopathy. This may be due to chronic pulmonary edema. ACT 112: Negative or not required by law. Electronically signed by: Tomas Parra M.D. 04/20/2023 12:49 PM Medications Administered Discontinued Medications Furosemide (Furosemide 40 Mg/4 Ml Vial) 40 mg IV ONE ONE Stop: 04/20/23 12:15 Last Admin: 04/20/23 12:37 Dose: 40 mg Documented By: JENNIFER ECG Additional Comments: AFib no STEMI Code Status & VTE Plan VTE Prophylaxis Plan VTE Prophylaxis will be ordered: Yes Supervising Physician Co-Signing Physician Notes I have personally seen, evaluated and examined the patient. I have also personally discussed the management of the patient with the resident physician/LISHA and I agree with the exam findings documented in the history and physical examination and the documented assessment and plan unless otherwise stated below. Brief Exam: In general pleasant 67-year-old male who is currently on the BiPAP and fairly comfortable on the BiPAP at this time is accompanied by his and daughter at the time my examination. HEENT normocephalic atraumatic BiPAP mask in place. Neck positive JVD no masses. Heart: Regular rate and rhythm I do not appreciate murmur or ectopy or rub. Lungs: Diminished but fairly clear on the BiPAP at this time. Abdomen: Soft nontender positive bowel sounds. Extremities: Bilateral dependent edema/pitting edema approximately 2-3+ right greater than left with scaly skin sloughing off the right lower extremity due to injury approximately a month ago and hematoma. Ultrasound of this lower extremities been ordered and pending at the time of this dictation. Neurologically: The patient is alert and oriented with no focal deficit on exam. Assessment/plan: As described above. Please refer to orders for further planning. Will do aggressive IV diuresis. Await ultrasound results. We have written an order to notify us with these results when available. 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
[2023-04-20 15:04] LABS: Appearance Urine Clear (Clear); Bilirubin Urine Negative (Negative); Blood Urine Negative (Negative); Color Urine Yellow; Glucose Urine UA Negative (Negative); Ketones Urine Negative (Negative); Leukocyte Esterase Urine Negative (Negative); Nitrite Urine Negative (Negative); Protein Urine Negative (Negative); Urobilinogen Urine Negative (Negative); pH Urine 5.5 (4.5-7.5)
--- NOTE | 2023-04-20 15:24 | Ultrasound Report ---
RIGHT LOWER EXTREMITY VENOUS DOPPLER HISTORY: Right leg errythma/redness- r/o DVT COMPARISON STUDY: None. FINDINGS: There is normal compressibility, flow, and augmentation within the right lower extremity de ep venous system. There is diffuse subcutaneous edema. IMPRESSION: No DVT within the right lower extremity ACT 112: Negative or not required by law. Electronically signed by: Toby Deleon M.D. 04/20/2023 3:23 PM
[2023-04-20] MEDS ORDERED: DEXTROSE 50% 50 ML SYRINGE IV PRN (17:04)
[2023-04-20] MEDS ORDERED: CARBOHYDRATES FOR HYPOGLYCEMIA PO PRN (17:04)
[2023-04-20] MEDS ORDERED: ACETAMINOPHEN 325 MG TAB PO PRN (17:04)
[2023-04-20] MEDS ORDERED: GLUCOSE 10 TAB/TUBE PO PRN (17:04)
[2023-04-20] MEDS ORDERED: GLUCAGON FOR INJ 1 MG VIAL SQ PRN (17:04)
[2023-04-20] MEDS ORDERED: ALBUTEROL HFA 8 GM INHALER INH PRN (17:04)
[2023-04-20] MEDS ORDERED: GLUCOSE 40% GEL 15 GM TUBE PO PRN (17:04)
[2023-04-20] MEDS ORDERED: ONDANSETRON INJ 2 MG/ML 2 ML VIAL IV PRN (17:04)
[2023-04-20] MEDS: INSULIN ASPART PER UNIT CHARGE SC SCH (18:23)
[2023-04-20] MEDS: ATORVASTATIN 10 MG TAB PO SCH (21:15)
[2023-04-20] MEDS: METOPROLOL TARTRATE 100 MG TAB PO SCH (21:15)
[2023-04-20] MEDS: allopurinoL 300 MG TAB PO SCH (21:15)
[2023-04-21] MEDS: ALBUTEROL 0.083% NEBU SOLN 3 ML VIAL NEB PRN (03:31)
[2023-04-21 04:54] LABS: Basophils # (auto) 0.08 K/uL (0.00-0.20); Basophils % (auto) 0.7 %; Eosinophils # (auto) 0.11 K/uL (0.00-0.50); Eosinophils % (auto) 0.9 %; Hematocrit (blood only) 41.5 % (42.0-52.0); Hemoglobin 13.1 g/dl (14.0-18.0); Immature Granulocytes # (auto) 0.05 K/uL (0.01-0.20); Immature Granulocytes % (auto) 0.4 %; Lymphocytes # (auto) 0.88 K/uL (1.20-3.40); Lymphocytes % (auto) 7.5 %; Mean Corpuscular Hgb Conc 31.6 g/dL (32.0-36.0); Mean Corpuscular Volume 98.1 fL (80.0-100.0); Mean Platelet Volume 10.9 fL (9.4-12.4); Monocytes # (auto) 1.08 K/uL (0.11-0.59); Monocytes % (auto) 9.3 %; Neutrophils # (auto) 9.47 K/uL (1.40-6.50); Neutrophils % (auto) 81.2 %; Platelet Count 294 K/uL (130-400); RDW Coefficient of Variation 17.2 % (11.5-14.5); RDW Standard Deviation 61.7 fL (36.4-46.3); Red Blood Count 4.23 M/uL (4.70-6.10); White Blood Count 11.67 K/ul (4.8-10.8)
[2023-04-21 05:02] LABS: BUN Creatinine Ratio 22.2 (10-20); Calcium 9.7 mg/dl (8.6-10.3); Creatinine Clr Calc Pharmacy 93.8 ml/min; Est GFR (African American) 80.7 ml/min; Est GFR (Non-African American) 69.7 ml/min; Magnesium 2.2 mg/dl (1.7-2.4); Potassium 3.6 mmol/L (3.5-5.1)
[2023-04-21] MEDS: RIVAROXABAN 20 MG TAB PO SCH (07:49)
[2023-04-21] MEDS: dilTIAZem HCL 240 MG CAPCR PO SCH (07:49)
[2023-04-21] MEDS: lisinopril 20 MG TAB PO SCH (07:49)
[2023-04-21] MEDS: FUROSEMIDE 40 MG/4 ML VIAL IV ONE ×2 (11:18→23:54)
--- NOTE | 2023-04-21 11:22 | Electrocardiogram Report ---
Test Reason : Blood Pressure : / mmHG Vent. Rate : 057 BPM Atrial Rate : 000 BPM P-R Int : 000 ms QRS Dur : 094 ms QT Int : 422 ms P-R-T Axes : 000 020 026 degrees QTc Int : 410 ms Atrial fibrillation with slow ventricular response Abnormal ECG When compared with ECG of 23-JAN-2023 14:46, No significant change was found Confirmed by Rigoberto Smith ([id number]) on 04/21/2023 11:22:26 AM Referred By: Nolan Soria Confirmed By:Rigoberto Smith
--- NOTE | 2023-04-21 11:32 | XCELERA ---
[id number]\[id number]___[id number]
--- NOTE | 2023-04-21 14:59 | Pulmonary Consultation ---
Date of Consultation April 21, 2023 Assessment & Plan (1) Pleural effusion: Small right pleural effusion noted on CT chest. Patient with improving hypoxemia. Will hold on thoracentesis at this time as unlikely to make a change in his clinical picture and patient responding positively to diuretics. Patient also on Xarelto which would preclude an elective thoracentesis. (2) Hypoxic respiratory failure: Improving with diuresis. No signs of COPD exacerbation at this time. History of Present Illness Reason for Consultation: Acute hypoxic respiratory failure Attending Physician: Kofi Odonnell History of Present Illness 67-year-old male with a history of emphysema, tobacco abuse, diastolic heart failure and type 2 diabetes mellitus who has been having ongoing shortness of breath and lower extremity edema for the past 2 weeks. Patient notes that over the past day or 2 he has been having severe dyspnea with minimal exertion. He has been receiving diuretics with Lasix and has noticeable improvement in his dyspnea and oxygen requirements. He is now down to 8 L of supplemental oxygen and saturating in the mid 90s. He denies any significant cough or wheezing. He denies any recent fevers, chills or night sweats. He does note his health has generally been declining since his hospitalization in November. He notes that he was diagnosed with COVID over the winter as well. Allergies Allergy/AdvReac Type Severity Reaction Status Date / Time dicyclomine [From Bentyl] Allergy Unknown CAN'T Verified 04/20/23 14:11 REMEMBER Home Medications Medication Instructions Recorded Confirmed Type Discontinue oxygen #1 ea 02/24/23 04/20/23 Rx albuterol sulfate 90 mcg/actuation 2 inh inhalation Q4H PRN shortness 03/18/23 04/20/23 Rx breath activated powder inhaler of breath or wheezing #1 ea allopurinol 300 mg tablet 300 mg PO BID #180 tabs 03/18/23 04/20/23 Rx atorvastatin 10 mg tablet 10 mg PO QPM #90 tabs 03/18/23 04/20/23 Rx diltiazem HCl 240 mg 240 mg PO DAILY #90 caps 03/18/23 04/20/23 Rx capsule,extended release 24 hr furosemide 40 mg tablet 40 mg PO DAILY #90 tabs 03/18/23 04/20/23 Rx lisinopril 20 mg tablet 20 mg PO DAILY #90 tabs 01/26/24 02/28/24 Rx rivaroxaban 20 mg tablet (Xarelto) 20 mg PO DAILY #90 tabs 03/18/23 04/20/23 Rx metformin 500 mg tablet 500 mg PO BID #180 tabs 03/21/23 04/20/23 Rx metoprolol tartrate 100 mg tablet 100 mg PO BID #180 tabs 03/22/23 04/20/23 Rx Patient History Medical History COVID-19 Open wound of arm 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 Venous insufficiency Left leg cellulitis Diabetic toe ulcer Right knee DJD Controlled diabetes mellitus with diabetic autonomic neuropathy Knee pain, right Atopic dermatitis Atrial fibrillation, persistent Benign essential hypertension Chronic obstructive pulmonary disease Gout Hypercholesterolemia Localized primary osteoarthritis of lower leg Medicare annual wellness visit, subsequent AISHA (obstructive sleep apnea) Surgical History Status post right hip replacement H/O total hip arthroplasty History of vasectomy Previous back surgery Family History Mother Coronary heart disease Hypertension Diabetes Denies family history of Ovarian cancer Prostate cancer Myocardial infarction Breast cancer Colorectal cancer Social History Smoking Status: Former smoker Age Started Using Tobacco: 10; Age Quit Using Tobacco: 48; Second Hand Exposure: Yes; Do You Dip or Chew Tobacco: No; Hx Alcohol Use: No Hx Substance Use: No Preferred Language: Azeri Communication Ability: Effective Visual Impairment: No Limitations 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 Required: No Beliefs That Will Affect Care: None marital status: Current Living Situation: Spouse and Family Current Living Situation Comment: , [id number] current occupational status: disabled Feels Safe at Home: Yes Safety Concerns: Feels Safe At This Time Childhood Exposure to Second-Hand Smoke: Yes Diet: DASH caffeine: Yes Seatbelt Use: always Sunscreen Use: No Assistive Devices: Cane and Glasses Review of Systems Review of Systems: All systems reviewed & are unremarkable except as noted in HPI & below Physical Exam Physical Exam: Constitutional: Patient appears to be of their stated age. Patient is in no apparent distress. Patient is well-developed. Eyes: Pupils are equal round and reactive to light. Conjunctivae are normal. Anicteric sclera. Ears nose, mouth and throat: Mallampati class 2. Normal posterior oropharynx. Uvula is midline. Neck: Trachea is midline. Visual inspection is normal. Respiratory: Bibasilar crackles. No increased work of breathing. No significant wheezing. Cardiovascular: Regular rate and rhythm. No murmurs. Significant lower extremity edema bilaterally, right greater than left. Gastrointestinal: Normal bowel sounds, soft, nontender and nondistended. No hepatosplenomegaly noted. Musculoskeletal: No cyanosis. Patient is able to move all extremities. Strength is 5 out of 5 in the upper and lower extremities. Skin: No rashes, warm dry and intact. Neurologic: No obvious focal neurological deficits seen. Psychiatric: Alert and oriented x3 with a euthymic affect. Results & Data Results & Data Vital Signs (Past 12 Hours) Vital Signs Pulse Pulse Resp BP BP Pulse Ox O2 Del Method 04/21/23 14:31 90 21 106/63 94 Nasal Cannula, High Flow Nasal Cannula 04/21/23 14:24 90 15 100/62 94 High Flow Nasal Cannula 04/21/23 14:02 91 H 19 106/68 91 High Flow Nasal Cannula 04/21/23 12:00 77 16 115/72 92 High Flow Nasal Cannula 04/21/23 11:30 68 17 94 High Flow Nasal Cannula 04/21/23 11:00 70 15 04/21/23 10:30 94 High Flow Nasal Cannula 04/21/23 10:00 122/70 96 High Flow Nasal Cannula 04/21/23 10:00 93 High Flow Nasal Cannula 04/21/23 09:30 92 04/21/23 09:04 92 H 18 95 High Flow Nasal Cannula 04/21/23 08:01 111/77 94 High Flow Nasal Cannula 04/21/23 07:49 143/85 H 95 High Flow Nasal Cannula 04/21/23 07:38 104 H 20 94 High Flow Nasal Cannula 04/21/23 05:45 94 H 16 126/77 96 High Flow Nasal Cannula 04/21/23 05:45 105 H 16 126/77 95 High Flow Nasal Cannula 04/21/23 03:40 103 H 18 94 High Flow Nasal Cannula 04/21/23 03:31 96 H 18 92 High Flow Nasal Cannula O2 Flow Rate FiO2 04/21/23 14:31 8 04/21/23 14:24 8 04/21/23 14:02 8 04/21/23 12:00 8 04/21/23 11:30 04/21/23 11:00 04/21/23 10:30 04/21/23 10:00 04/21/23 10:00 04/21/23 09:30 04/21/23 09:04 40 80 04/21/23 08:01 04/21/23 07:49 04/21/23 07:38 60 100 04/21/23 05:45 04/21/23 05:45 04/21/23 03:40 60 100 04/21/23 03:31 60 100 PG Care Time/CCT Total # of Minutes Spent Total Time Spent with Patient: Total time spent is greater than 50% in coordination of care (as documented) at patient's floor/unit and/or counseling patient: Coding Level of Care Code 59877 INT INP/OBS CARE 2/55MIN Diagnoses Pleural effusion J90 Hypoxic respiratory failure J96.91
[2023-04-21 18:17] LABS: BUN Creatinine Ratio 25.5 (10-20); Calcium 9.9 mg/dl (8.6-10.3); Creatinine Clr Calc Pharmacy 92.1 ml/min; Est GFR (Non-African American) 68.1 ml/min; Potassium 4.3 mmol/L (3.5-5.1)
[2023-04-21] MEDS ORDERED: SODIUM CHLOR 7% 4 ML NEB NEB SCH (19:00)
--- NOTE | 2023-04-21 22:52 | Hospitalist Progress Note ---
Date of Service April 21, 2023 Assessment & Plan (1) Hypoxic respiratory failure: Plan: Patient presents with acute hypoxic respiratory failure at this time appears to be secondary to acute heart failure exacerbation - His CT scan of his chest is with atelectasis and bilateral pleural effusions with RT > LT- likely related to fluid volume status and atelectasis - Doubt PE at this time secondary to quick response to NIPPV and providing oxygen - Respiratory biofire negative, no opacification on CXR, no WBC, no sputum production - doubt infective at this time - BiPAP wean down to nasal cannula maintain spo2 >90% - BiPAP at night and/or sleeping - Continue JALEEL- patient reports that he does not use this at home On Improving with diuretics, patient has received 40 mg of lasix x2 on 04/20 and 60 mg of lasix IV x1 Patient improved to about 8 liters high flow. also consulted pulmonary. (2) Acute on chronic heart failure with preserved ejection fraction: Plan: Acute on chronic heart failure exacerbation - Bilateral lower extremity edema, with orthopnea and dyspnea at rest and exertion- reports dietary indiscretion with salt - Patient does not follow with Cardiology or the CHF clinic- he does not weigh himself at home - Lasix 40mg IV given in EMD with good initial response in addition to his 40mg Lasix he took this morning - He is without evidence of end organ failure at this time and appears more consistent with right sided failure/cor pulmonale- diurese again this evening with lasix 40mg IV - Appreciate CHF clinic evaluation- Continue BB and NADIRA - Echo completed - Telemetry overnight while diuresing as well as trend HsCTNI (3) Abnormal CT scan: Plan: Abnormal lung CT scan with interlobular and septal thickening- patient likely has some aspect of COPD/Emphysema- however is without recent PFTS - He may likely benefit from further work up as an outpatient and inhalers - His pleural effusions at this time are small and no need for invasive intervention at this time- diurese and follow with CXR (4) Pleural effusion: Plan: As above likely related to fluid volume status (5) Lower extremity edema: Plan: Right > Left - Duplex right lower extremity- rule out DVT - if positive will need to change anticoagulation (6) Anticoagulant long-term use: Plan: Patient with chronic atrial fibrillation - continue with Xarelto - currently rate controlled - Continue with Metoprolol and Diltiazem- dilt recently increased - Keep Mag ~2.0 and K ~4.0 (7) Chronic a-fib: Plan: As above- rate controlled ECHO Continue Xarelto (8) 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 He is oping that he continues to improve on 04/21 so he can be discharged. Review of Systems Review of Systems: All systems reviewed & are unremarkable except as noted in HPI & below Physical Exam Physical Exam: General: awake, alert, no apparent distress Head: Normocephalic, atraumatic Neuro: AAO x 3 Chest: decreased in bases, fine crackles at bases GI: NABS x 4 quadrants, soft, nontender to palpation, Skin: erythema to right leg - has been same since end february per , dried scaling skin noted, wound healed without drainage Results & Data Results & Data Vital Signs (Past 12 Hours) Vital Signs Temp Pulse Resp BP Pulse Ox O2 Del Method O2 Flow Rate 04/21/23 20:18 36.7 C 89 18 125/76 90 04/21/23 15:34 High Flow Nasal Cannula 04/21/23 14:45 95 04/21/23 14:31 90 21 106/63 94 Nasal Cannula, High Flow Nasal Cannula 04/21/23 14:24 90 15 100/62 94 High Flow Nasal Cannula 8 04/21/23 14:02 91 H 19 106/68 91 High Flow Nasal Cannula 04/21/23 12:00 77 16 115/72 92 High Flow Nasal Cannula 04/21/23 11:30 68 17 94 High Flow Nasal Cannula 04/21/23 11:00 70 15 PG Care Time/CCT Total # of Minutes Spent Total Time Spent with Patient: Total time spent is greater than 50% in coordination of care (as documented) at patient's floor/unit and/or counseling patient: Coding Level of Care Code 13200 SUB INP/OBS CARE 3/50MIN Diagnoses Hypoxic respiratory failure J96.91 Acute on chronic heart failure with preserved ejection fraction I50.[address] scan R93.89 Pleural effusion J90 Lower extremity edema R60.0 Anticoagulant long-term use Z79.01 Chronic a-fib I48.20 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
[2023-04-22] LABS: Base Excess VBG 10.1 mEq/L; HCO3 VBG 37 mmol/L; Oxygen Saturation VBG 87.9 %; PCO2 VBG 55 mmHg (38-50); PO2 VBG 56 mmHg; pH VBG 7.43 (7.36-7.41)
[2023-04-22 00:09] LABS: Basophils # (auto) 0.05 K/uL (0.00-0.20); Basophils % (auto) 0.5 %; Eosinophils # (auto) 0.16 K/uL (0.00-0.50); Eosinophils % (auto) 1.5 %; Hematocrit (blood only) 37.5 % (42.0-52.0); Hemoglobin 11.9 g/dl (14.0-18.0); Immature Granulocytes # (auto) 0.03 K/uL (0.01-0.20); Immature Granulocytes % (auto) 0.3 %; Lymphocytes # (auto) 1.01 K/uL (1.20-3.40); Lymphocytes % (auto) 9.7 %; Mean Corpuscular Hemoglobin 31.2 pg (25.0-34.0); Mean Corpuscular Hgb Conc 31.7 g/dL (32.0-36.0); Mean Corpuscular Volume 98.2 fL (80.0-100.0); Mean Platelet Volume 10.8 fL (9.4-12.4); Monocytes # (auto) 1.31 K/uL (0.11-0.59); Monocytes % (auto) 12.6 %; Neutrophils # (auto) 7.81 K/uL (1.40-6.50); Neutrophils % (auto) 75.4 %; Nucleated RBC # (auto) 0.02 K/uL (0.00-0.12); Nucleated RBC % (auto) 0.2 %; Platelet Count 262 K/uL (130-400); RDW Coefficient of Variation 17.2 % (11.5-14.5); RDW Standard Deviation 61.9 fL (36.4-46.3); Red Blood Count 3.82 M/uL (4.70-6.10); White Blood Count 10.37 K/ul (4.8-10.8)
[2023-04-22 00:23] LABS: Albumin Globulin Ratio 1.3 (0.9-2); Albumin Level 3.5 gm/dl (3.4-5.0); Calcium 9.1 mg/dl (8.6-10.3); Creatinine Clr Calc Pharmacy 81.1 ml/min; Est GFR (African American) 67.7 ml/min; Est GFR (Non-African American) 58.4 ml/min; Globulin 2.7 gm/dl (2.5-4.0); Magnesium 2.2 mg/dl (1.7-2.4); Potassium 3.9 mmol/L (3.5-5.1); Total Protein 6.2 gm/dl (6.0-8.3)
--- NOTE | 2023-04-22 00:33 | XRay Report ---
SINGLE VIEW CHEST CLINICAL HISTORY: Hypoxia FINDINGS: 2 AP, portable, upright chest radiographs are compared to chest x-ray and chest CT dated . The heart is enlarged noting atherosclerotic calcification. There is pulmonary vascular katie estion. Emphysema and chronic interstitial thickening similar to previous. There are very large left pleural effusions with dependent consolidation. Loculated fluid is seen along the left major fissure. There are calcified granulomas. No pneumothorax is seen. The skeletal structures are osteopenic. The bony thorax is grossly intact. IMPRESSION: 1. Cardiomegaly and emphysema with evidence of congestive failure. 2. Right large left pleural effusions with dependent consolidation. The right pleural effusion appear s increased in size from previous. ACT 112: Negative or not required by law. Electronically signed by: Nolan Danielson M.D. 04/22/2023 12:32 AM
--- NOTE | 2023-04-22 02:08 | Communication Note ---
Was notified of increased oxygen requirement. Pt went from 8L to 15L Oxymax. Saw pt at bedside; no increased work or breathing and not in any acute distress. Lungs without wheezing, diminished at bases, rales at bases. Repeat labs notable for VBG with pH=7.43, pCO2= 55. Repeat CXR with Right large left pleural effusions with dependent consolidation, increased in size from prior. Gave an additional 40mg Lasix IV. Added Zosyn to cover for hospital acquired pneumonia, MRSA swab pending. spO2 in the high 80s on 15L Oxymax, VBG without respiratory acidosis, started on HFNC with improvement in spO2 to mid 90s. Noted that he has history of AISHA, and will require BiPAP while sleeping. Date of Service: April 22, 2023
[2023-04-22] MEDS: PIPER/TAZO 4.5g in D5W MINI-B 100 ML IV ONE (02:20)
[2023-04-22 06:28] LABS: Basophils # (auto) 0.06 K/uL (0.00-0.20); Basophils % (auto) 0.6 %; Eosinophils # (auto) 0.14 K/uL (0.00-0.50); Eosinophils % (auto) 1.4 %; Hematocrit (blood only) 37.5 % (42.0-52.0); Hemoglobin 12.5 g/dl (14.0-18.0); Immature Granulocytes # (auto) 0.03 K/uL (0.01-0.20); Immature Granulocytes % (auto) 0.3 %; Lymphocytes % (auto) 9.1 %; Mean Corpuscular Hemoglobin 32.1 pg (25.0-34.0); Mean Corpuscular Hgb Conc 33.3 g/dL (32.0-36.0); Mean Corpuscular Volume 96.2 fL (80.0-100.0); Mean Platelet Volume 10.6 fL (9.4-12.4); Monocytes # (auto) 1.26 K/uL (0.11-0.59); Monocytes % (auto) 12.8 %; Neutrophils # (auto) 7.45 K/uL (1.40-6.50); Neutrophils % (auto) 75.8 %; Platelet Count 266 K/uL (130-400); RDW Coefficient of Variation 17.2 % (11.5-14.5); RDW Standard Deviation 60.3 fL (36.4-46.3); White Blood Count 9.84 K/ul (4.8-10.8)
[2023-04-22 06:58] LABS: BUN Creatinine Ratio 23.1 (10-20); Calcium 9.5 mg/dl (8.6-10.3); Creatinine Clr Calc Pharmacy 83.5 ml/min; Est GFR (African American) 73.3 ml/min; Est GFR (Non-African American) 63.2 ml/min; Magnesium 2.2 mg/dl (1.7-2.4); Potassium 3.9 mmol/L (3.5-5.1)
[2023-04-22] MEDS: FUROSEMIDE 40 MG/4 ML VIAL IV SCH (08:12)
[2023-04-22] MEDS: PIPERACILLIN/TAZOBACTAM 4.5 GM in DEXTROSE 5% MINI-B 100 ML IV SCH (08:12)
--- NOTE | 2023-04-22 08:32 | Hospitalist Progress Note ---
Date of Service April 22, 2023 Assessment & Plan (1) Hypoxic respiratory failure: Plan: Patient presents with acute hypoxic respiratory failure at this time appears to be secondary to acute heart failure preserved EF exacerbation -[facility] medicine does not feel this is a COPD exacerbation increased oxygen requirement overnight - His CT scan of his chest is with atelectasis and bilateral pleural effusions with RT > LT- likely related to fluid volume status and atelectasis - Respiratory biofire negative, no opacification on CXR, no WBC, no sputum production - doubt infective at this time -since diuresis did not help the hypoxia, will try steroids and combivent to see if improved, adjust SSI negative fluid balance, symptomatic hypotension will stop diuresis (2) Acute on chronic heart failure with preserved ejection fraction: Plan: Acute on chronic heart failure exacerbation - Bilateral lower extremity edema, with orthopnea and dyspnea at rest and exertion- reports dietary indiscretion with salt - Duplex right lower extremity-negative for DVT - Patient does not follow with Cardiology or the CHF clinic- he does not weigh himself at home -appears more consistent with right sided failure/cor pulmonale - Appreciate CHF clinic evaluation- Continue BB and NADIRA, reduce nadira i dose due to lower blood pressure - Echo completed Ef preserved Patient with chronic atrial fibrillation - continue with Xarelto - currently rate controlled - Continue with Metoprolol and Diltiazem- - Keep Mag ~2.0 and K ~4.0 - (3) Abnormal CT scan: Plan: Abnormal lung CT scan with interlobular and septal thickening- patient likely has some aspect of COPD/Emphysema- however is without recent PFTS - He may likely benefit from further work up as an outpatient and inhalers - His pleural effusions at this time are small and no need for invasive intervention at this time- diurese and follow with CXR (4) 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: Plan: DM II - diabetic diet - Insulin sliding scale (5) AISHA (obstructive sleep apnea): Plan: typically uses bipap at night, now on tawanna flow Admission and Anticipated Discharge Date Admission Date: April 20, 2023 Subjective this pt remains intermittently on high levels of oxygen supplementation did try to diurese which resulted in symptomatic hypotension pt had been discharged on oxygen in the past and does have a past history of smoking although not a copd diagnosis is on chronic anticoagulation for afib so PE is a low suspicion Physical Exam Physical Exam: pt is awake and c/o dizziness cardiac is rate controlled and seems regular lungs are diminished throughout extremities are with trace edema Results & Data Results & Data Vital Signs (Past 12 Hours) Vital Signs Temp Pulse Pulse Pulse Resp BP Pulse Ox 04/22/23 07:28 98.1 F 81 18 120/78 93 04/22/23 04:11 73 18 93 04/22/23 03:16 97.3 F L 80 20 132/73 04/22/23 01:23 80 18 91 04/21/23 23:29 97.9 F 72 20 135/77 04/21/23 23:20 89 16 89 L 04/21/23 21:53 91 H O2 Del Method O2 Flow Rate FiO2 04/22/23 07:28 High Flow Nasal Cannula 40 95 04/22/23 04:11 High Flow Nasal Cannula 40 100 04/22/23 03:16 High Flow Nasal Cannula 40 100 04/22/23 01:23 High Flow Nasal Cannula 40 100 04/21/23 23:29 04/21/23 23:20 Oxymask 15 04/21/23 21:53 PG Care Time/CCT Total # of Minutes Spent Total Time Spent with Patient: Total time spent is greater than 50% in coordination of care (as documented) at patient's floor/unit and/or counseling patient: Coding Level of Care Code 17758 SUB INP/OBS CARE 3/50MIN Diagnoses Hypoxic respiratory failure J96.91 Acute on chronic heart failure with preserved ejection fraction I50.[address] scan R93.89 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
--- NOTE | 2023-04-22 10:44 | Pulmonology Progress Note ---
Date of Service April 22, 2023 Assessment & Plan (1) Pleural effusion: Plan: Pleural effusion is minimal at this time and unlikely to significantly alter his clinical course with drain. (2) Hypoxic respiratory failure: Plan: Chest x-ray from overnight reviewed with evidence of bibasilar infiltrates and small right pleural effusion. Atelectasis noted. He had a desaturation overnight and had escalating oxygen requirements. He was able to wean his oxygen back down to 15 L. Recommend continued diuresis as able. No signs of COPD exacerbation at this time. Will start incentive spirometry and flutter valve. Repeat procalcitonin. If negative, will discontinue Zosyn. Admission and Anticipated Discharge Date Admission Date: April 20, 2023 Subjective Overnight, patient had escalating oxygen requirements and was placed on high flow oxygen. When I saw him he was on 90% FiO2 at 40 L via Vapotherm. I was able to wean him down to 15 L and 50% FiO2. His oxygen saturations stayed put at around 93 to 94%. He denies any shortness of breath or chest pain. He does endorse shortness of breath with activity however. He denies any fevers, chills or night sweats. Review of Systems Review of Systems: All systems reviewed & are unremarkable except as noted in HPI & below Physical Exam Physical Exam: Constitutional: Patient appears to be of their stated age. Patient is in no apparent distress. Patient is well-developed. Eyes: Pupils are equal round and reactive to light. Conjunctivae are normal. Anicteric sclera. Ears nose, mouth and throat: Mallampati class 2. Normal posterior oropharynx. Uvula is midline. Neck: Trachea is midline. Visual inspection is normal. Respiratory: Bibasilar crackles. No increased work of breathing. No significant wheezing. Cardiovascular: Regular rate and rhythm. No murmurs. Significant lower extremity edema bilaterally, right greater than left. Gastrointestinal: Normal bowel sounds, soft, nontender and nondistended. No hepatosplenomegaly noted. Musculoskeletal: No cyanosis. Patient is able to move all extremities. Strength is 5 out of 5 in the upper and lower extremities. Skin: No rashes, warm dry and intact. Neurologic: No obvious focal neurological deficits seen. Psychiatric: Alert and oriented x3 with a euthymic affect. Results & Data Results & Data Vital Signs (Past 12 Hours) Vital Signs Temp Pulse Pulse Pulse Resp BP Pulse Ox 04/22/23 09:55 04/22/23 09:53 73 04/22/23 07:28 36.7 C 81 18 120/78 93 04/22/23 04:11 73 18 93 04/22/23 03:16 36.3 C L 80 20 132/73 04/22/23 01:23 80 18 91 04/21/23 23:29 36.6 C 72 20 135/77 04/21/23 23:20 89 16 89 L O2 Del Method O2 Flow Rate FiO2 04/22/23 09:55 High Flow Nasal Cannula 40 04/22/23 09:53 04/22/23 07:28 High Flow Nasal Cannula 40 95 04/22/23 04:11 High Flow Nasal Cannula 40 100 04/22/23 03:16 High Flow Nasal Cannula 40 100 04/22/23 01:23 High Flow Nasal Cannula 40 100 04/21/23 23:29 04/21/23 23:20 Oxymask 15 PG Care Time/CCT Total # of Minutes Spent Total Time Spent with Patient: Total time spent is greater than 50% in coordination of care (as documented) at patient's floor/unit and/or counseling patient: Coding Level of Care Code 31815 SUB INP/OBS CARE 2/35MIN Diagnoses Pleural effusion J90 Hypoxic respiratory failure J96.91
[2023-04-22] MEDS: ALBUMIN 25% 12.5 GM/50 ML VIAL IV ONE (13:09)
--- NOTE | 2023-04-22 16:14 | Heart Failure Consultation ---
Date of Consultation April 22, 2023 Assessment & Plan (1) Hypoxic respiratory failure: (2) Acute on chronic heart failure with preserved ejection fraction: (3) Atrial fibrillation, persistent: (4) AISHA (obstructive sleep apnea): (5) Cor pulmonale: Plan Patient has a history of HFpEF. Suspect currently symptoms like multifactorial- CHF, AISHA, suspected COPD, recent pneumonia/COVID19. Currently symptoms consistent with right sided failure- likely cor pulmonale. Large right pleural effusion on CXR. Continue attempts to optimize his volume status however suspect he is likely near euvolemic. He developed symptomatic hypotension with attempts at more aggressive diuresis overnight after desaturation event. BNP downtrending. Continues to have O2 requirement. Suspect may be primary pulmonary etiology. Renal function remains at baseline. IV Lasix currently on hold. Suspect he can resume his home dose of Lasix 40 mg daily tomorrow if BPs improve. EF remains preserved. BNP is trending down. Could consider adding SGTL2i to further optimize. Would hold off given his hypotension and risk for further volume depletion at this time. Recommend daily standing weights at home. Low sodium diet. Strict I&Os while inpatient. We discussed the nature of heart failure and the goals of the program today. He is agreeable to ongoing participation. Disposition: Plan to follow up with the heart failure program within 7 days of discharge. Scheduled for 04/29/23 at 10:30. Plan to check follow up BMP/magnesium/BNP at the time of his visit. History of Present Illness Attending Physician: Bashir Reaves MD History of Present Illness Patient is a 67 year old male with history of HFpEF, atrial fibrillation, DM, AISHA (on BiPAP, and HTN. He does not follow with a producer assistant. Recent studies: 1. 04/21/23 Echo: LV systolic function is normal. EF 60-65%. No RWMA. Mild concentric LVH. Mild MR. Patient was hospitalized in November with pneumonia. He was hospitalized again in January with COVID19. [facility] with hypoxic respiratory failure. He was noticing increasing dyspnea and edema x 2 weeks. PO2 in the 70s in the ED and he was initiated on BiPAP. BNP 230 now improved to 139. Troponin was normal. CXR with small pleural effusions, cardiomegaly and pulmonary edema noted. Patchy bibasilar densities. Pulmonology was consulted- thoracentesis not recommended at this time because he was improving with diuretics. Referral was placed to the heart failure program on admission. Patient was evaluated this afternoon in his hospital bed. He reports feeling improved but is still requiring room air. He had a desaturation episode overnight requiring increase in O2- 8L up to 15L. He was given additional IV Lasix. Earlier today developed hypotension and orthostatic symptoms and received albumin. He is now feeling improved but remains hypotensive. He continues to have edema R>L which appears somewhat chronic. Patient does not typically weigh himself at home. He does take Lasix 40 mg daily and reports good compliance. He denies chest pain, cough, palpitations. Rate is well controlled. Allergies Allergy/AdvReac Type Severity Reaction Status Date / Time dicyclomine [From Bentyl] Allergy Unknown CAN'T Verified 04/20/23 14:11 REMEMBER Home Medications Medication Instructions Recorded Confirmed Type Discontinue oxygen #1 ea 02/24/23 04/20/23 Rx albuterol sulfate 90 mcg/actuation 2 inh inhalation Q4H PRN shortness 03/18/23 04/20/23 Rx breath activated powder inhaler of breath or wheezing #1 ea allopurinol 300 mg tablet 300 mg PO BID #180 tabs 03/18/23 04/20/23 Rx atorvastatin 10 mg tablet 10 mg PO QPM #90 tabs 03/18/23 04/20/23 Rx diltiazem HCl 240 mg 240 mg PO DAILY #90 caps 03/18/23 04/20/23 Rx capsule,extended release 24 hr furosemide 40 mg tablet 40 mg PO DAILY #90 tabs 03/18/23 04/20/23 Rx lisinopril 20 mg tablet 20 mg PO DAILY #90 tabs 03/18/23 04/20/23 Rx rivaroxaban 20 mg tablet (Xarelto) 20 mg PO DAILY #90 tabs 03/18/23 04/20/23 Rx metformin 500 mg tablet 500 mg PO BID #180 tabs 03/21/23 04/20/23 Rx metoprolol tartrate 100 mg tablet 100 mg PO BID #180 tabs 03/22/23 04/20/23 Rx Patient History Medical History COVID-19 Open wound of arm 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 Venous insufficiency Left leg cellulitis Diabetic toe ulcer Right knee DJD Controlled diabetes mellitus with diabetic autonomic neuropathy Knee pain, right Atopic dermatitis Atrial fibrillation, persistent Benign essential hypertension Chronic obstructive pulmonary disease Gout Hypercholesterolemia Localized primary osteoarthritis of lower leg Medicare annual wellness visit, subsequent AISHA (obstructive sleep apnea) Surgical History Status post right hip replacement H/O total hip arthroplasty History of vasectomy Previous back surgery Family History Mother Coronary heart disease Hypertension Diabetes Denies family history of Ovarian cancer Prostate cancer Myocardial infarction Breast cancer Colorectal cancer Social History Smoking Status: Former smoker Age Started Using Tobacco: 10; Age Quit Using Tobacco: 48; Second Hand Exposure: Yes; Do You Dip or Chew Tobacco: No; Hx Alcohol Use: No Hx Substance Use: No Preferred Language: [place] Communication Ability: Effective Visual Impairment: No Limitations Java Sdet Required: No Beliefs That Will Affect Care: None marital status: Current Living Situation: Spouse and Family Current Living Situation Comment: , [id number] current occupational status: disabled Feels Safe at Home: Yes Childhood Exposure to Second-Hand Smoke: Yes Diet: DASH caffeine: Yes Seatbelt Use: always Sunscreen Use: No Assistive Devices: BiPap Physical Exam Physical Exam: Constitutional: Alert, oriented, in no acute distress. O2 via NC. HEENT: Head is atraumatic and normocephalic. EOMs intact. Sclera anicteric. Face is symmetric. No perioral cyanosis. Mucous membranes moist. Neck: Supple, no JVD + HJR Pulmonary: Normal respiratory effort, bibasilar crackles, otherwise clear to auscultation bilaterally Cardiac: Regular rate and rhythm. Normal S1 and S2, no gallops, no rubs, no murmurs Extremities: 2+ radial pulses bilaterally. 2+ posterior tibialis pulses bilaterally. 2+ pitting edema on the right, chronic skin changes. 1+ LLE edema. No cyanosis or clubbing. Abdomen: Normal bowel sounds, soft, non-tender, no abdominal mass palpated Skin: Normal skin color, turgor, no rash, no skin lesions Neurological: Patient is awake, alert, and oriented. Pleasant and cooperative. Answers questions appropriately. Speech is clear. Normal movement in all 4 extremities. Results & Data Vital Signs (Past 12 Hours) Vital Signs Temp Pulse Pulse Resp BP Pulse Ox O2 Del Method 04/22/23 15:21 71 04/22/23 14:09 90/57 L 04/22/23 11:42 84/48 L 04/22/23 10:54 97.5 F L 70 18 80/46 L 95 Room Air 04/22/23 10:42 80 18 92 High Flow Nasal Cannula 04/22/23 09:55 High Flow Nasal Cannula 04/22/23 09:53 73 04/22/23 07:45 66 20 96 High Flow Nasal Cannula 04/22/23 07:28 98.1 F 81 18 120/78 93 High Flow Nasal Cannula 04/22/23 04:11 73 18 93 High Flow Nasal Cannula O2 Flow Rate FiO2 04/22/23 15:21 04/22/23 14:09 04/22/23 11:42 04/22/23 10:54 04/22/23 10:42 15 50 04/22/23 09:55 40 04/22/23 09:53 04/22/23 07:45 40 100 04/22/23 07:28 40 95 04/22/23 04:11 40 100 Heart Failure Data/Metrics Heart Failure Type: HFpEF (EF > 50%) Ejection Fraction: 60-65% Evidenced Based Beta Chantal Therapy Beta Chantal Therapy: Yes Beta Chantal Name: Metoprolol Succinate NADIRA/ARB/ARNI Therapy NADIRA/ARB/ARNI Therapy: Yes NADIRA/ARB/ARNI Name: Lisinopril Coding Level of Care Code 89879 INT INP/OBS CARE 75MIN Diagnoses Hypoxic respiratory failure J96.91 Acute on chronic heart failure with preserved ejection fraction I50.33 Atrial fibrillation, persistent I48.1 AISHA (obstructive sleep apnea) G47.33 Cor pulmonale I27.81
[2023-04-22] MEDS ORDERED: IPRATROPIUM BROMIDE/ALBUTEROL respimat INH INH SCH (17:00)
[2023-04-22] MEDS: methylPREDNISolone 40 MG in SYRINGE 0 ML IV SCH (18:17)
[2023-04-22] MEDS: ALBUTEROL HFA 8 GM INHALER INH SCH (20:17)
[2023-04-22] MEDS: IPRATROPIUM BROMIDE HFA INHALER INH SCH (20:23)
[2023-04-23 06:12] LABS: Hemoglobin 12.4 g/dl (14.0-18.0); Mean Corpuscular Hemoglobin 31.2 pg (25.0-34.0); Mean Corpuscular Hgb Conc 32.6 g/dL (32.0-36.0); Mean Corpuscular Volume 95.7 fL (80.0-100.0); Platelet Count 289 K/uL (130-400); RDW Coefficient of Variation 16.8 % (11.5-14.5); RDW Standard Deviation 59.1 fL (36.4-46.3); Red Blood Count 3.97 M/uL (4.70-6.10); White Blood Count 9.38 K/ul (4.8-10.8)
[2023-04-23 06:30] LABS: BUN Creatinine Ratio 27.4 (10-20); Calcium 9.3 mg/dl (8.6-10.3); Creatinine Clr Calc Pharmacy 78.8 ml/min; Est GFR (African American) 68.3 ml/min; Est GFR (Non-African American) 58.9 ml/min; Magnesium 2.4 mg/dl (1.7-2.4); Potassium 4.3 mmol/L (3.5-5.1)
[2023-04-23 06:48] LABS: Anisocytosis Present; Basophils # (auto) 0.02 K/uL (0.00-0.20); Basophils % (auto) 0.2 %; Immature Granulocytes # (auto) 0.03 K/uL (0.01-0.20); Immature Granulocytes % (auto) 0.3 %; Lymphocytes # (auto) 0.27 K/uL (1.20-3.40); Lymphocytes % (auto) 2.9 %; Monocytes % (auto) 1.1 %; Neutrophils # (auto) 8.96 K/uL (1.40-6.50); Neutrophils % (auto) 95.5 %; Ovalocytes 1+; Polychromasia 1+
--- NOTE | 2023-04-23 08:05 | Hospitalist Progress Note ---
Date of Service April 23, 2023 Assessment & Plan (1) Hypoxic respiratory failure: Plan: Patient presents with acute hypoxic respiratory failure s/p treatment for acute heart failure preserved EF exacerbation diureisis with -6L and pt with symptomatic hypotension, without improvement in hypoxia -Pt has a history of tobacco use and must consider if this is a COPD exacerbation increased oxygen requirement with slight improvement with parenteral steroids and albuterol/ipratropium inhaled medications - His CT scan of his chest is with atelectasis and bilateral pleural effusions with RT > LT- likely related to fluid volume status and atelectasis comments of underlying emphysema - Respiratory biofire negative, no opacification on CXR, no WBC, no sputum production - doubt infective at this time steroid induced poor diabetes control adding nph one dose on 04/22 and restarting metfromin negative fluid balance, symptomatic hypotension will stop diuresis (2) Acute on chronic heart failure with preserved ejection fraction: Plan: Acute on chronic heart failure exacerbation - Bilateral lower extremity edema, with orthopnea and dyspnea at rest and exertion- reports dietary indiscretion with salt - Duplex right lower extremity-negative for DVT - Patient does not follow with Cardiology or the CHF clinic- he does not weigh himself at home -appears more consistent with right sided failure/cor pulmonale - Appreciate CHF clinic evaluation- Continue BB and NADIRA, reduced nadira i dose stopped diuresis with improved blood pressure and symptoms - Echo completed Ef preserved Patient with chronic atrial fibrillation - continue with Xarelto - currently rate controlled - Continue with Metoprolol and Diltiazem- - Keep Mag ~2.0 and K ~4.0 - (3) Abnormal CT scan: Plan: Abnormal lung CT scan with interlobular and septal thickening- patient likely has some aspect of COPD/Emphysema- however is without recent PFTS - He may likely benefit from further work up as an outpatient and inhalers - His pleural effusions at this time are small and no need for invasive intervention at this time- diurese and follow with CXR (4) 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 Family is at bedside and updated. Patient has no coughing. Physical Exam Physical Exam: Awake alert appropriate. He is comfortable but on 12 L nasal cannula high flow. His lungs have diminished breath sounds at the bases no focal loss no wheeze His cardiac exam is regular without murmurs clicks rubs or gallops His extremities are with trace edema at best Results & Data Results & Data Vital Signs (Past 12 Hours) Vital Signs Temp Pulse Pulse Resp BP Pulse Ox O2 Del Method 04/23/23 07:58 79 04/23/23 07:58 High Flow Nasal Cannula 04/23/23 07:43 97.7 F 98 H 20 117/69 90 High Flow Nasal Cannula 04/23/23 07:30 83 18 93 High Flow Nasal Cannula 04/23/23 03:55 98.1 F 70 18 106/67 97 High Flow Nasal Cannula 04/23/23 03:45 66 18 92 High Flow Nasal Cannula 04/22/23 23:15 97.7 F 77 18 117/67 91 High Flow Nasal Cannula 04/22/23 23:04 High Flow Nasal Cannula 04/22/23 22:17 70 24 90 High Flow Nasal Cannula 04/22/23 20:25 78 18 89 L Nasal Cannula O2 Flow Rate FiO2 04/23/23 07:58 04/23/23 07:58 04/23/23 07:43 15 04/23/23 07:30 30 100 04/23/23 03:55 04/23/23 03:45 30 100 04/22/23 23:15 04/22/23 23:04 04/22/23 22:17 30 100 04/22/23 20:25 13 Laboratory Results Reviewed CBC Reviewed chemistry PG Care Time/CCT Total # of Minutes Spent Total Time Spent with Patient: Total time spent is greater than 50% in coordination of care (as documented) at patient's floor/unit and/or counseling patient: Coding Level of Care Code 23985 SUB INP/OBS CARE 3/50MIN Diagnoses Hypoxic respiratory failure J96.91 Acute on chronic heart failure with preserved ejection fraction I50.[address] scan R93.89 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
[2023-04-23] MEDS: lisinopril 10 MG TAB PO SCH (08:15)
--- NOTE | 2023-04-23 09:03 | XRay Report ---
XR chest 1V portable HISTORY: 67 years-old Male persistent hypoxia acute hypoxia COMPARISON: 04/21/2023 TECHNIQUE: AP view of the chest FINDINGS: Cardiac silhouette is enlarged. Atherosclerosis of the aorta. Emphysema. No pneumothorax. Calcified p ulmonary granulomata. Pulmonary vascular congestion with interstitial coarsening. Small pleural effus ions with mild bibasilar consolidation. There is persistent ill-defined left midlung opacity which tovar s improved in the interval. IMPRESSION: 1. Cardiomegaly with mildly improved pulmonary edema. 2. Small pleural effusions with mild bibasilar opacities redemonstrated. ACT 112: Negative or not required by law. The above report was generated using voice recognition software. It may contain grammatical, syntax o r spelling errors. Electronically signed by: Renan Gray M.D. 04/23/2023 9:02 AM
--- NOTE | 2023-04-23 11:58 | Pulmonology Progress Note ---
Date of Service April 23, 2023 Assessment & Plan (1) Pleural effusion: Plan: Pleural effusion is minimal at this time and drainage unlikely to significantly alter his clinical course. Chest x-ray from 04/23/2023 personally reviewed. Cardiomegaly noted with small bilateral effusions and bibasilar atelectasis. (2) Hypoxic respiratory failure: Plan: Hypoxemic respiratory failure secondary to diastolic CHF and emphysema. No formal PFTs available for review at this time. Continue with empiric methylprednisone. Will give a dose of IV 20 mg Lasix along with IV acetazolamide 250 mg. His bicarbonate is increasing likely due to contraction alkalosis. Recommend decreasing his dose of antihypertensives to allow for further diuresis. Will request an echo with a bubble study to evaluate for shunt physiology. Interestingly, his previous echo in November noted elevated RV systolic pressure of 50 to 60 mmHg, but the latest echo from the does not comment on pulmonary hypertension. The right ventricle is noted to be dilated mildly on echo. He may potentially benefit from a right heart catheterization to evaluate wedge pressures and pulmonary vascular resistance if there is no improvement in the next day or 2. Lastly I do suspect he has an element of chronic hypoxia that was likely not identified, but clearly there is an acute component given his clinical presentation. Chronicity: acute Qualified Code(s): J96.01 - Acute respiratory failure with hypoxia (3) Cor pulmonale: Plan: As noted above, prior echo revealed elevated RV pressures, but latest echo does not comment on pressures. Suspect cor pulmonale related to untreated emphysema and COPD. Suspect element of diastolic heart failure playing a role in elevated right pressures as well. As mentioned above, patient may benefit from right heart catheterization. (4) Metabolic alkalosis: Plan: Suspected element of contraction alkalosis. Will give 250 mg IV acetazolamide along with Lasix today. Plan Thank you for the consult. Will continue to follow Admission and Anticipated Discharge Date Admission Date: April 20, 2023 Subjective Patient continues to require high flow oxygen. He has dyspnea with walking. He denies any chest pain or shortness of breath. His appetite remains reasonable. He denies any fevers or chills. He had episodic episodes of hypotension yesterday and diuresis has been slowed down. Review of Systems Review of Systems: All systems reviewed & are unremarkable except as noted in HPI & below Physical Exam Physical Exam: Constitutional: Patient appears to be of their stated age. Patient is in no apparent distress. Patient is well-developed. Eyes: Pupils are equal round and reactive to light. Conjunctivae are normal. Anicteric sclera. Ears nose, mouth and throat: Mallampati class 2. Normal posterior oropharynx. Uvula is midline. Neck: Trachea is midline. Visual inspection is normal. Respiratory: Bibasilar crackles. No increased work of breathing. No significant wheezing. Cardiovascular: Regular rate and rhythm. No murmurs. Significant lower extremity edema bilaterally, right greater than left. Gastrointestinal: Normal bowel sounds, soft, nontender and nondistended. No hepatosplenomegaly noted. Musculoskeletal: No cyanosis. Patient is able to move all extremities. Strength is 5 out of 5 in the upper and lower extremities. Skin: No rashes, warm dry and intact. Neurologic: No obvious focal neurological deficits seen. Psychiatric: Alert and oriented x3 with a euthymic affect. Results & Data Results & Data Vital Signs (Past 12 Hours) Vital Signs Temp Pulse Pulse Resp BP Pulse Ox O2 Del Method 04/23/23 11:17 36.4 C L 81 18 113/64 98 High Flow Nasal Cannula 04/23/23 10:57 83 18 100 High Flow Nasal Cannula 04/23/23 07:58 79 04/23/23 07:58 High Flow Nasal Cannula 04/23/23 07:43 36.5 C 98 H 20 117/69 90 High Flow Nasal Cannula 04/23/23 07:30 83 18 93 High Flow Nasal Cannula 04/23/23 03:55 36.7 C 70 18 106/67 97 High Flow Nasal Cannula 04/23/23 03:45 66 18 92 High Flow Nasal Cannula O2 Flow Rate FiO2 04/23/23 11:17 15 04/23/23 10:57 20 100 04/23/23 07:58 04/23/23 07:58 04/23/23 07:43 15 04/23/23 07:30 30 100 04/23/23 03:55 04/23/23 03:45 30 100 PG Care Time/CCT Total # of Minutes Spent Total Time Spent with Patient: Total time spent is greater than 50% in coordination of care (as documented) at patient's floor/unit and/or counseling patient: Coding Level of Care Code 78330 SUB INP/OBS CARE 3/50MIN Diagnoses Pleural effusion J90 Acute respiratory failure with hypoxia J96.01 Chronicity: acute Cor pulmonale I27.81 Metabolic alkalosis E87.3
[2023-04-23] MEDS: acetaZOLAMIDE 250 MG in SYRINGE 0 ML IV STA (12:52)
[2023-04-23] MEDS: FUROSEMIDE INJ 20 MG/2 ML VIAL IV ONE (12:52)
[2023-04-23] MEDS ORDERED: INSULIN HUMAN NPH SC ONE (15:58)
[2023-04-23] MEDS: metFORMIN HCL 500 MG TAB PO SCH (16:35)
[2023-04-23] MEDS: NovoLIN-N (NPH) PER UNIT CHARGE SQ ONE (16:36)
[2023-04-24 02:45] LABS: Hematocrit (blood only) 36.2 % (42.0-52.0); Hemoglobin 11.7 g/dl (14.0-18.0); Mean Corpuscular Hemoglobin 31.5 pg (25.0-34.0); Mean Corpuscular Hgb Conc 32.3 g/dL (32.0-36.0); Mean Corpuscular Volume 97.3 fL (80.0-100.0); Nucleated RBC # (auto) 0.02 K/uL (0.00-0.12); Nucleated RBC % (auto) 0.2 %; Platelet Count 263 K/uL (130-400); RDW Coefficient of Variation 16.6 % (11.5-14.5); RDW Standard Deviation 59.3 fL (36.4-46.3); Red Blood Count 3.72 M/uL (4.70-6.10); White Blood Count 13.18 K/ul (4.8-10.8)
[2023-04-24 02:56] LABS: BUN Creatinine Ratio 34.3 (10-20); Calcium 9.3 mg/dl (8.6-10.3); Creatinine Clr Calc Pharmacy 72.9 ml/min; Est GFR (African American) 62.2 ml/min; Est GFR (Non-African American) 53.7 ml/min; Magnesium 2.4 mg/dl (1.7-2.4); Potassium 4.1 mmol/L (3.5-5.1)
[2023-04-24 03:06] LABS: Basophils # (auto) 0.02 K/uL (0.00-0.20); Basophils % (auto) 0.2 %; Immature Granulocytes # (auto) 0.05 K/uL (0.01-0.20); Immature Granulocytes % (auto) 0.4 %; Lymphocytes # (auto) 0.23 K/uL (1.20-3.40); Lymphocytes % (auto) 1.7 %; Monocytes # (auto) 0.38 K/uL (0.11-0.59); Monocytes % (auto) 2.9 %; Neutrophils % (auto) 94.8 %; Polychromasia 1+
--- NOTE | 2023-04-24 04:11 | Communication Note ---
Alerted by nursing that pt had 3.2 second pause on monitor. Pt was asymptotic, asleep during event and vital signs have otherwise remained stable. No other events noted on telemetry. Telemetry now with afib with rates in 70s/80s. Plan to get repeat labs and replete electrolytes as indicated. Date of Service: April 24, 2023
[2023-04-24] MEDS: UMECLIDINIUM/VILANTEROL 62.5/25MCG 7 PUFFS/INHALER INH SCH (08:16)
--- NOTE | 2023-04-24 08:22 | XCELERA ---
[id number] \\[id number]
[2023-04-24] MEDS: FLUTICASONE FUROATE 200MCG 14 PUFFS/INHALER INH SCH (09:20)
--- NOTE | 2023-04-24 11:43 | Pulmonology Progress Note ---
Date of Service April 24, 2023 Assessment & Plan (1) Pleural effusion: Plan: Pleural effusion is minimal at this time and drainage unlikely to significantly alter his clinical course. Chest x-ray from 04/23/2023 personally reviewed. Cardiomegaly noted with small bilateral effusions and bibasilar atelectasis. (2) Hypoxic respiratory failure: Plan: Hypoxemic respiratory failure secondary to diastolic CHF and emphysema. No formal PFTs available for review at this time. Continue with empiric methylprednisone. Will give an additional dose of 40 mg IV Lasix today with 250 mg of acetazolamide given his alkalosis. Recommend decreasing his dose of antihypertensives to allow for further diuresis. Repeat echo reveals elevated RVSP of 50 to 60 mmHg. No intra-arterial shunt. Patient may benefit from a right heart catheterization to determine wedge pressures and pulmonary vascular resistance. If PVR is high, would consider transfer to a tertiary center for IV prostanoid therapy. Lastly I do suspect he has an element of chronic hypoxia that was likely not identified, but clearly there is an acute component given his clinical presentation. Chronicity: acute Qualified Code(s): J96.01 - Acute respiratory failure with hypoxia (3) Cor pulmonale: Plan: Will consult cardiology for right heart catheterization. (4) Metabolic alkalosis: Plan: Suspected element of contraction alkalosis. Will give 250 mg IV acetazolamide along with Lasix today. Plan Thank you for the consult. Will continue to follow Admission and Anticipated Discharge Date Admission Date: April 20, 2023 Subjective Patient seen and examined. He remains on 10 L of oxygen. He is dyspneic with minimal exertion. Denies any chest pain, nausea or vomiting. No fevers. Review of Systems Review of Systems: All systems reviewed & are unremarkable except as noted in HPI & below Physical Exam Physical Exam: Constitutional: Patient appears to be of their stated age. Patient is in no apparent distress. Patient is well-developed. Eyes: Pupils are equal round and reactive to light. Conjunctivae are normal. Anicteric sclera. Ears nose, mouth and throat: Mallampati class 2. Normal posterior oropharynx. Uvula is midline. Neck: Trachea is midline. Visual inspection is normal. Respiratory: Bibasilar crackles. No increased work of breathing. No significant wheezing. Cardiovascular: Regular rate and rhythm. No murmurs. Significant lower extremity edema bilaterally, right greater than left. Gastrointestinal: Normal bowel sounds, soft, nontender and nondistended. No hepatosplenomegaly noted. Musculoskeletal: No cyanosis. Patient is able to move all extremities. Strength is 5 out of 5 in the upper and lower extremities. Skin: No rashes, warm dry and intact. Neurologic: No obvious focal neurological deficits seen. Psychiatric: Alert and oriented x3 with a euthymic affect. Results & Data Results & Data Vital Signs (Past 12 Hours) Vital Signs Temp Pulse Pulse Resp BP Pulse Ox O2 Del Method 04/24/23 10:52 High Flow Nasal Cannula 04/24/23 10:01 95 High Flow Nasal Cannula 04/24/23 08:49 36.3 C L 76 18 100/74 88 L High Flow Nasal Cannula 04/24/23 07:15 65 04/24/23 04:00 36.8 C 62 18 118/60 93 High Flow Nasal Cannula 04/24/23 03:25 72 16 90 Nasal Cannula O2 Flow Rate 04/24/23 10:52 04/24/23 10:01 10 04/24/23 08:49 10 04/24/23 07:15 04/24/23 04:00 10 04/24/23 03:25 10 PG Care Time/CCT Total # of Minutes Spent Total Time Spent with Patient: Total time spent is greater than 50% in coordination of care (as documented) at patient's floor/unit and/or counseling patient: Coding Level of Care Code 81083 SUB INP/OBS CARE 3/50MIN Diagnoses Pleural effusion J90 Acute respiratory failure with hypoxia J96.01 Chronicity: acute Cor pulmonale I27.81 Metabolic alkalosis E87.3
[2023-04-24] MEDS: FUROSEMIDE 40 MG/4 ML VIAL IV ONE (12:06)
[2023-04-24] MEDS: acetaZOLAMIDE 250 MG in SYRINGE 0 ML IV STA (12:06)
--- NOTE | 2023-04-24 14:20 | Hospitalist Progress Note ---
Date of Service April 24, 2023 Assessment & Plan (1) Hypoxic respiratory failure: Plan: Patient presents with acute hypoxic respiratory failure s/p treatment for acute heart failure preserved EF exacerbation diureisis with -8L and pt with symptomatic hypotension, without improvement in hypoxia -Pt has a history of tobacco use and must consider if this is a COPD exacerbation Patient has elevated CO2 on serum chemistries and a low anion gap dating back to 2018 which may suggest he is got some compensated respiratory acidosis with metabolic alkalosis. Pulmonary medicine did give a dose of Lasix and acetazolamide on 04/24/2023 increased oxygen requirement with slight improvement with parenteral steroids and is changed to inhaled beta agonist anticholinergics and steroids - His CT scan of his chest is with atelectasis and bilateral pleural effusions with RT > LT- likely related to fluid volume status and atelectasis comments of underlying emphysema - Respiratory biofire negative, no opacification on CXR, no WBC, no sputum production - doubt infective at this time steroid induced poor diabetes control adding nph one dose on 04/22 and restarting metformin, [id number] glucoses remain elevated while on steroids we will begin tapering steroids on 04/25/2023 (2) Acute on chronic heart failure with preserved ejection fraction: Plan: Acute on chronic heart failure exacerbation - Bilateral lower extremity edema, with orthopnea and dyspnea at rest and exertion- reports dietary indiscretion with salt - Duplex right lower extremity-negative for DVT - Patient does not follow with Cardiology or the CHF clinic- he does not weigh himself at home -appears more consistent with right sided failure/cor pulmonale - Appreciate CHF clinic evaluation- Continue BB and NADIRA, reduced nadira i dose - Echo completed Ef preserved Patient with chronic atrial fibrillation - continue with Xarelto - currently rate controlled - Continue with Metoprolol and Diltiazem-reduce doses of diltiazem to make room for diuresis if required Replete electrolytes when needed - (3) Abnormal CT scan: Plan: Abnormal lung CT scan with interlobular and septal thickening- patient likely has some aspect of COPD/Emphysema- however is without recent PFTS - He may likely benefit from further work up as an outpatient and inhalers - His pleural effusions at this time are small and no need for invasive intervention (4) 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 Continue diuresis by pulmonary medicine now -8 L without significant improvement in oxygenation Physical Exam Physical Exam: Awake alert appropriate. He is comfortable but on 10 L nasal cannula high flow. His lungs remain with diminished breath sounds at the bases no focal loss no wheeze His cardiac exam remains regular without murmurs clicks rubs or gallops His extremities are with trace edema at best Results & Data Results & Data Vital Signs (Past 12 Hours) Vital Signs Temp Pulse Pulse Resp BP Pulse Ox O2 Del Method 04/24/23 13:28 105/59 L 04/24/23 11:50 97.5 F L 63 18 105/74 91 High Flow Nasal Cannula 04/24/23 10:52 High Flow Nasal Cannula 04/24/23 10:01 95 High Flow Nasal Cannula 04/24/23 08:49 97.3 F L 76 18 100/74 88 L High Flow Nasal Cannula 04/24/23 07:15 65 04/24/23 04:00 98.2 F 62 18 118/60 93 High Flow Nasal Cannula 04/24/23 03:25 72 16 90 Nasal Cannula O2 Flow Rate 04/24/23 13:28 04/24/23 11:50 10 04/24/23 10:52 04/24/23 10:01 10 04/24/23 08:49 10 04/24/23 07:15 04/24/23 04:00 10 04/24/23 03:25 10 Laboratory Results Reviewed CBC Reviewed chemistry PG Care Time/CCT Total # of Minutes Spent Total Time Spent with Patient: Total time spent is greater than 50% in coordination of care (as documented) at patient's floor/unit and/or counseling patient: Coding Level of Care Code 72352 SUB INP/OBS CARE 3/50MIN Diagnoses Acute respiratory failure with hypoxia J96.01 Chronicity: acute Acute on chronic heart failure with preserved ejection fraction I50.[address] scan R93.89 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
[2023-04-24] MEDS: OPTIRAY 320 125ml IV ONE (20:54)
--- NOTE | 2023-04-24 21:23 | CT Scan Report ---
Exam(s): CTA CHEST IV Amt: 119ML OPTIRAY 320 EXAM: CT Angiography Chest With Intravenous Contrast CLINICAL HISTORY: Reason for exam: PE. TECHNIQUE: Axial computed tomographic angiography images of the chest with intravenous contrast. CTDI is 19 mGy and DLP is 887.7 mGy-cm. Automated exposure control was utilized for the study. A dose lowering technique was utilized adhering to the principles of ALARA. MIP reconstructed images were created and reviewed. COMPARISON: CT of the chest 01/23/23 FINDINGS: Pulmonary arteries: Unremarkable. No pulmonary embolus. Aorta: No acute findings. No thoracic aortic aneurysm. Lungs: Bilateral lower lobe atelectasis versus pneumonia, regular the left foot small right and trace left effusions. No mass. Pleural space: Unremarkable. No significant effusion. No pneumothorax. Heart: Cardiomegaly. No pericardial effusion. No evidence of RV dysfunction. Mediastinum: Multiple scattered mediastinal lymph nodes measuring up to 16 mm, likely reactive. Bones/joints: Calcification of the anterior longitudinal ligament. Multilevel degenerative changes. No acute fracture. No dislocation. Soft tissues: Bilateral adrenal lesions measuring 2.3 cm on the right and 16 mm on the left demonstrating Hounsfield units of adenomas. These appear stable compared to prior exam Lymph nodes: See above. IMPRESSION: 1. No pulmonary embolus. 2. Bilateral lower lobe atelectasis versus pneumonia, regular the left foot small right and trace left effusions. His emphysema. Left lower lobe granuloma. Electronically signed by: Heaven Matthews MD 04/24/23 21:22 PM
[2023-04-25] MEDS: dilTIAZem HCL 180 MG CAPCR PO SCH (08:11)
[2023-04-25] MEDS: lisinopril 5 MG TAB PO SCH (08:11)
--- NOTE | 2023-04-25 09:29 | Pulmonology Progress Note ---
Date of Service April 25, 2023 Assessment & Plan (1) Hypoxic respiratory failure: Chronicity: acute Qualified Code(s): J96.01 - Acute respiratory failure with hypoxia (2) Pleural effusion: (3) Cor pulmonale: (4) Hypercapnic respiratory failure: Plan Impression: 67-year-old male with sleep disordered breathing and COPD (overlap syndrome) admitted with hypoxemic respiratory failure. He was initially diuresed but has remained on supplemental oxygen. CT angiogram showed no evidence of PE but did show bilateral effusions which were small as well as some compressive atelectasis. He remains with his baseline hypercarbia. Recommendations: 1. Hypoxemic respiratory failure: Continue supplemental oxygen titrated to keep saturations at around 88%. Would not try and target higher oxygen saturations given his concomitant hypercarbia. His basilar atelectasis is likely contributing to some shunting physiology. Will place on incentive spirometry and flutter valve and see how he does. Hopefully this will improve his shunt fraction. 2. Hypercarbic respiratory failure: Suspect related to overlap syndrome. Restart BiPAP at night. The patient would prefer to use our machine rather than bring his machine in from home. 3. Bilateral effusions: Continue diuresis. Patient is had a good response with net negative of about 9 L if his intake and output are accurately tracked. Will reassess with ultrasound today and if the effusions are still present, may consider therapeutic thoracentesis to see if we can improve his oxygenation. Unfortunately he is on Xarelto which will need to be held prior to any elective procedures. 4. Out of bed to chair and ambulatory as tolerated. 5. COPD: The patient does not appear bronchospastic. Will discontinue steroids. Continue Anoro/Arnuity and as needed albuterol. His white count has been normal until steroids were started. He is afebrile. Cultures negative to date. Antibiotics will be discontinued at this point in time. Patient will require outpatient pulmonary function testing to be performed once clinically stable. It is likely he will need to go home on supplemental oxygen. 6. 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 Would recommend drying the patient out is much as possible before consideration of right heart catheterization. Will need assessment of LVEDP and assessment on and off oxygen to see whether or not chronic hypoxemia may be contributing. The above recommendations and plan were discussed with the patient. Questions were answered to the best my ability. He expressed understanding and is in agreement with plan as outlined Admission and Anticipated Discharge Date Admission Date: April 20, 2023 Subjective Patient seen and examined. EMR reviewed. Discussed with pulmonary off going provider and with patient at bedside. The patient states that he feels like he is doing well. He has not been on oxygen previously. Does have sleep disordered breathing and uses BiPAP / at home but has not been using it while he is in the hospital. He has not seen a swing driver previously. He is not really coughing or expectorating phlegm. Review of Systems 2 Review of Systems: All systems reviewed & are unremarkable except as noted in Subjective Physical Exam 2 Constitutional: WD/WN, vitals as above Neck: trachea midline, no thyromegaly Respiratory: normal respiratory effort, lungs clear to auscultation Cardiovascular: RRR, no murmur, no edema Gastrointestinal (Abdomen): normal bowel sounds, soft, nontender, no hepatosplenomegaly Musculoskeletal: Extremities: extremities normal to inspection Skin: no rashes, warm and dry Neurologic: Nonfocal exam Lymphatic: no cervical lymphadenopathy Results & Data Results & Data Vital Signs (Past 12 Hours) Vital Signs Temp Pulse Pulse Resp BP BP Pulse Ox 04/25/23 08:18 04/25/23 08:03 36.5 C 87 18 118/75 91 04/25/23 07:33 77 04/25/23 04:25 36.5 C 79 20 120/72 96 04/25/23 01:01 04/25/23 00:16 36.5 C 78 20 106/70 90 04/25/23 00:00 74 04/24/23 22:49 O2 Del Method O2 Flow Rate 04/25/23 08:18 High Flow Nasal Cannula 10 04/25/23 08:03 Nasal Cannula 10 04/25/23 07:33 04/25/23 04:25 Nasal Cannula 10 04/25/23 01:01 High Flow Nasal Cannula 10 04/25/23 00:16 Nasal Cannula 10 04/25/23 00:00 04/24/23 22:49 High Flow Nasal Cannula 8 Laboratory Results 04/24/23 02:29 04/24/23 02:[address] angiogram performed yesterday independently reviewed. No PE was identified. Bilateral lower lobe atelectasis with small right and trace left effusions. Centrilobular emphysematous changes are noted. No significant changes compared to the CT angiogram performed few months ago. PG Care Time/CCT Total # of Minutes Spent Total Time Spent with Patient: Total time spent is greater than 50% in coordination of care (as documented) at patient's floor/unit and/or counseling patient: Coding Level of Care Code 40470 SUB INP/OBS CARE 3/50MIN Diagnoses Acute respiratory failure with hypoxia J96.01 Chronicity: acute Pleural effusion J90 Cor pulmonale I27.81 Hypercapnic respiratory failure J96.92
--- NOTE | 2023-04-25 12:44 | Cardiology Progress Note ---
Date of Service April 25, 2023 Assessment & Plan (1) Acute on chronic heart failure with preserved ejection fraction: Plan: He still has significant volume overload by physical exam. Continue current diuretics. (2) Cor pulmonale: Plan: Some RV, RA, tricuspid regurgitation and dilated IVC suggestive of elevated pulmonary pressures and cor pulmonale. He is currently fluid overloaded and is unable to lay flat. Will continue to try to diurese him. Once he would be able to lay flat for a right heart cath we can perform that to determine the pressures and resistances. Admission and Anticipated Discharge Date Admission Date: April 20, 2023 Subjective Original consultation performed by Carmen Varma as a heart failure consultation. I am seeing the patient regarding possible right heart catheterization given his evidence of pulmonary hypertension. This will be part of the heart failure treatment and evaluation. Patient has diuresed a total of 9 L of fluid with significant weight loss if the documented weights can be trusted. These were not standing weights but were bed weights. Today, he continues with dyspnea. Requires oxygen at rest but is able to converse with me. He denies any anginal chest pain, heaviness, or tightness. He tells me that they were planning a thoracentesis, however, review of the pulmonary notes suggest that that would not occur at this time. Patient tells me he cannot lay very flat for very long. Much of that has to do with back pain but he also becomes very short of breath. Review of Systems Review of Systems: Negative except as per HPI Physical Exam Constitutional: WD/WN, vitals as above (Chronically ill-appearing) Neck: trachea midline, no thyromegaly (He has JVD to the angle of the jaw when lying at 30 degrees recumbent. ) Respiratory: Bilateral dullness at the bases. Scattered crackles. Poor air movement. Cardiovascular: Regular rate and rhythm. S4 gallop. Grade 2/6 systolic murmur. Bilateral lower extremity edema. Musculoskeletal: no cyanosis or clubbing, extremities motor strength 5/5 Neurologic: Cognition is intact. Speech is fluent. Diminished hearing. Moves all 4 extremities voluntarily. Psychiatric: A+Ox3, euthymic affect Results & Data Vital Signs (Past 12 Hours) Vital Signs Temp Pulse Pulse Resp BP BP Pulse Ox 04/25/23 11:37 94 04/25/23 11:14 36.5 C 75 19 119/68 95 04/25/23 08:18 04/25/23 08:03 36.5 C 87 18 118/75 91 04/25/23 07:33 77 04/25/23 04:25 36.5 C 79 20 120/72 96 04/25/23 01:01 O2 Del Method O2 Flow Rate 04/25/23 11:37 04/25/23 11:14 Nasal Cannula 10 04/25/23 08:18 High Flow Nasal Cannula 10 04/25/23 08:03 Nasal Cannula 10 04/25/23 07:33 04/25/23 04:25 Nasal Cannula 10 04/25/23 01:01 High Flow Nasal Cannula 10 PG Care Time/CCT Total # of Minutes Spent Total Time Spent with Patient: Total time spent is greater than 50% in coordination of care (as documented) at patient's floor/unit and/or counseling patient: Coding Level of Care Code 28399 SUB INP/OBS CARE 2/35MIN Diagnoses Acute on chronic heart failure with preserved ejection fraction I50.33 Cor pulmonale I27.81
[2023-04-25] MEDS: FUROSEMIDE 20 MG TAB PO SCH (16:08)
--- NOTE | 2023-04-25 16:24 | Hospitalist Progress Note ---
Date of Service April 25, 2023 Assessment & Plan (1) Hypoxic respiratory failure: Plan: Patient presents with acute hypoxic respiratory failure s/p treatment for acute heart failure preserved EF exacerbation diureisis with -9L and pt with symptomatic hypotension, now with some improvement in hypoxia -Pt has a history of tobacco use(2-3 pks ) and may consider if chronic lung disease has a portion of this issue with hypoxia Patient has elevated CO2 on serum chemistries and a low anion gap dating back to 2018 which may suggest he is got some compensated respiratory acidosis with metabolic alkalosis. Pulmonary medicine continues to diurese and will consider thoracentesis once xarelto is washed out discontinued steroids - His CT scan of his chest is with atelectasis and bilateral pleural effusions with RT > LT- likely related to fluid volume status and atelectasis comments of underlying emphysema - Respiratory biofire negative, no opacification on CXR, no WBC, no sputum production - doubt infective at this time diabetes control restarting metformin, stopping steroids (2) Acute on chronic heart failure with preserved ejection fraction: Plan: Acute on chronic heart failure exacerbation - Bilateral lower extremity edema, with orthopnea and dyspnea at rest and exertion- reports dietary indiscretion with salt - Duplex right lower extremity-negative for DVT - Patient does not follow with Cardiology or the CHF clinic- he does not weigh himself at home -appears more consistent with right sided failure/cor pulmonale - Appreciate CHF clinic evaluation- Continue BB and NADIRA, reduced nadira i dose will consider RHC for diagnostic purposes - Echo completed Ef preserved Patient with chronic atrial fibrillation - continue with Xarelto - currently rate controlled - Continue with Metoprolol and Diltiazem-reduce doses of diltiazem to make room for diuresis if required Replete electrolytes when needed - (3) Abnormal CT scan: Plan: Abnormal lung CT scan with interlobular and septal thickening- patient likely has some aspect of COPD/Emphysema- however is without recent PFTS - He may likely benefit from further work up as an outpatient and inhalers - His pleural effusions consideration for thoracentesis once xarelto is ruled out (4) 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: Plan: DM II - diabetic diet - Insulin sliding scale metformin restarted and one dose nph due to high glucoses (5) AISHA (obstructive sleep apnea): Plan: typically uses bipap at night, now on tawanna flow Plan Patient will likely need home oxygen consideration for discharge will likely be when his oxygen requirements below 6 this likely will be 3/5 04/26 Admission and Anticipated Discharge Date Admission Date: April 20, 2023 Subjective this pt feels improved, still looking at origin of his profound hypoxia, certainly some overlap with cardiac and come underlying chronic lung disease perhaps a thoracentesis and Right heart cath in the near future Physical Exam Physical Exam: Pt does have issues laying flat and JVD but does not have significant rales, does have absent BS at right base trace pretibial edema Results & Data Results & Data Vital Signs (Past 12 Hours) Vital Signs Temp Pulse Pulse Resp BP BP Pulse Ox 04/25/23 16:10 97.7 F 78 18 109/67 92 04/25/23 15:33 82 04/25/23 11:37 94 04/25/23 11:14 97.7 F 75 19 119/68 95 04/25/23 08:18 04/25/23 08:03 97.7 F 87 18 118/75 91 04/25/23 07:33 77 04/25/23 04:25 97.7 F 79 20 120/72 96 O2 Del Method O2 Flow Rate 04/25/23 16:10 Nasal Cannula 4 04/25/23 15:33 04/25/23 11:37 04/25/23 11:14 Nasal Cannula 10 04/25/23 08:18 High Flow Nasal Cannula 10 04/25/23 08:03 Nasal Cannula 10 04/25/23 07:33 04/25/23 04:25 Nasal Cannula 10 PG Care Time/CCT Total # of Minutes Spent Total Time Spent with Patient: Total time spent is greater than 50% in coordination of care (as documented) at patient's floor/unit and/or counseling patient: Coding Level of Care Code 38482 SUB INP/OBS CARE 3/50MIN Diagnoses Acute respiratory failure with hypoxia J96.01 Chronicity: acute Acute on chronic heart failure with preserved ejection fraction I50.[address] scan R93.89 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
[2023-04-25] MEDS: FUROSEMIDE 40 MG/4 ML VIAL IV SCH (17:40)
[2023-04-26 06:31] LABS: Hematocrit (blood only) 37.2 % (42.0-52.0); Hemoglobin 12.2 g/dl (14.0-18.0); Immature Granulocytes # (auto) 0.09 K/uL (0.01-0.20); Immature Granulocytes % (auto) 0.6 %; Lymphocytes # (auto) 0.37 K/uL (1.20-3.40); Lymphocytes % (auto) 2.5 %; Mean Corpuscular Hemoglobin 31.4 pg (25.0-34.0); Mean Corpuscular Hgb Conc 32.8 g/dL (32.0-36.0); Mean Corpuscular Volume 95.6 fL (80.0-100.0); Mean Platelet Volume 11.3 fL (9.4-12.4); Monocytes # (auto) 1.28 K/uL (0.11-0.59); Monocytes % (auto) 8.7 %; Neutrophils # (auto) 12.92 K/uL (1.40-6.50); Neutrophils % (auto) 88.2 %; Nucleated RBC # (auto) 0.02 K/uL (0.00-0.12); Nucleated RBC % (auto) 0.1 %; Platelet Count 264 K/uL (130-400); RDW Coefficient of Variation 16.6 % (11.5-14.5); RDW Standard Deviation 58.6 fL (36.4-46.3); Red Blood Count 3.89 M/uL (4.70-6.10); White Blood Count 14.66 K/ul (4.8-10.8)
[2023-04-26 06:36] LABS: BUN Creatinine Ratio 34.3 (10-20); Calcium 9.5 mg/dl (8.6-10.3); Est GFR (African American) 57.5 ml/min; Est GFR (Non-African American) 49.6 ml/min; Potassium 3.5 mmol/L (3.5-5.1)
--- NOTE | 2023-04-26 07:32 | Hospitalist Progress Note ---
Date of Service April 26, 2023 Assessment & Plan (1) Hypoxic respiratory failure: Plan: Patient presents with acute hypoxic respiratory failure s/p treatment for acute heart failure preserved EF exacerbation diuresis with -9L and pt with symptomatic hypotension, now with some improvement in hypoxia continue gentle diuresis -Pt has a history of tobacco use(2-3 pks ) and may consider if chronic lung disease has a portion of this issue with hypoxia Patient has elevated CO2 on serum chemistries and a low anion gap dating back to 2018 which may suggest he is got some compensated respiratory acidosis with metabolic alkalosis. Patient had right heart catheterization 04/26/2023 Pulmonary medicine continues to diurese and will consider thoracentesis once xarelto is washed out discontinued steroids - His CT scan of his chest is with atelectasis and bilateral pleural effusions with RT > LT- likely related to fluid volume status and atelectasis comments of underlying emphysema - Respiratory biofire negative, no opacification on CXR, no WBC, no sputum pr oduction - doubt infective at this time diabetes control restarting metformin, stopping steroids (2) Acute on chronic heart failure with preserved ejection fraction: Plan: Acute on chronic heart failure exacerbation - Prehospital Bilateral lower extremity edema, with orthopnea and dyspnea at rest and exertion- reports dietary indiscretion with salt - Duplex right lower extremity-negative for DVT -appears more consistent with right sided failure/cor pulmonale - Appreciate CHF clinic evaluation- Continue BB and NADIRA, reduced nadira i dose consider low-dose Lasix following renal function - Echo completed Ef preserved Patient with chronic atrial fibrillation - continue with Xarelto - currently rate controlled - Continue with Metoprolol and Diltiazem-reduce doses of diltiazem to make room for diuresis if required Replete electrolytes when needed Acute kidney injury due to diuresis will follow cautiously - (3) Abnormal CT scan: Plan: Abnormal lung CT scan with interlobular and septal thickening- patient likely has some aspect of COPD/Emphysema- however is without recent PFTS - He may likely benefit from further work up as an outpatient and inhalers - His pleural effusions consideration for thoracentesis once xarelto is ruled out (4) 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: Plan: DM II - diabetic diet - Insulin sliding scale metformin restarted and one dose nph due to high glucoses (5) AISHA (obstructive sleep apnea): Plan: typically uses bipap at night, now on tawanna flow Plan Patient will likely need home oxygen consideration for discharge will likely be when his oxygen requirements below 6 this likely will be 3/04/26 Admission and Anticipated Discharge Date Admission Date: April 20, 2023 Subjective pt seen after heart cath, continued trial to lower intravascular volume to assist with cor pulmonale, some success with titrating down oxygen Physical Exam Physical Exam: pt still with fair air movement, no wheezes no crackles trace LE edema, little jvd cardiac exam is regular Results & Data Results & Data Vital Signs (Past 12 Hours) Vital Signs Temp Pulse Pulse Resp BP BP Pulse Ox 04/26/23 07:02 61 04/26/23 04:26 97.3 F L 94 H 20 123/79 93 04/26/23 03:26 71 13 98 04/25/23 23:34 97.3 F L 75 20 117/75 92 04/25/23 23:00 69 04/25/23 22:59 72 21 92 04/25/23 20:19 97.7 F 77 20 123/81 91 O2 Del Method O2 Flow Rate FiO2 04/26/23 07:02 04/26/23 04:26 Nasal Cannula 7 04/26/23 03:26 40 04/25/23 23:34 Nasal Cannula 7 04/25/23 23:00 04/25/23 22:59 50 04/25/23 20:19 Nasal Cannula 7 Laboratory Results Reviewed CBC reviewed chemistry PG Care Time/CCT Total # of Minutes Spent Total Time Spent with Patient: Total time spent is greater than 50% in coordination of care (as documented) at patient's floor/unit and/or counseling patient: Coding Level of Care Code 24691 SUB INP/OBS CARE 2/35MIN Diagnoses Acute respiratory failure with hypoxia J96.01 Chronicity: acute Acute on chronic heart failure with preserved ejection fraction I50.[address] scan R93.89 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
[2023-04-26] MEDS ORDERED: Nursing to Pharmacy Communication SCH ×2 (08:15→20:00)
--- NOTE | 2023-04-26 08:57 | Pulmonology Progress Note ---
Date of Service April 26, 2023 Assessment & Plan (1) Hypoxic respiratory failure: Chronicity: acute Qualified Code(s): J96.01 - Acute respiratory failure with hypoxia (2) Pleural effusion: (3) Cor pulmonale: (4) Hypercapnic respiratory failure: Plan Impression: 67-year-old male with sleep disordered breathing and COPD (overlap syndrome) admitted with hypoxemic respiratory failure. He was initially diuresed but has remained on supplemental oxygen. CT angiogram showed no evidence of PE but did show bilateral effusions which were small as well as some compressive atelectasis. He remains with his baseline hypercarbia. Recommendations: 1. Hypoxemic respiratory failure: Supplemental oxygen continues to be titrated down. He is currently down to 5 L this morning. He is in no distress at this time. Again, goal saturation 88 or above. Continue with incentive spirometry and flutter valve. 2. Hypercarbic respiratory failure: Suspect related to overlap syndrome. Restart BiPAP 17/ at night. Did well with hospital machine overnight. 3. Bilateral effusions: Continue diuresis. 9.5 L negative at this time. Daughter is present at bedside and was asking about thoracentesis. Thankfully, the patient's symptoms have appeared to improve and his oxygen requirement is improved as well. He has been off of his Xarelto for less than 24 hours this point. Tomorrow morning would make 48 hours. Consideration for bedside ultrasound, however effusion does appear relatively small on initial CT. They would rather avoid thoracentesis if possible, but understand that may be wa rranted if there is not significant improvement. 4. Increase activity as tolerated. 5. COPD: The patient does not appear bronchospastic. Continue Anoro/Arnuity and as needed albuterol. Remains afebrile. Cultures negative to date. Patient will require outpatient pulmonary function testing to be performed once clinically stable. It is likely he will need to go home on supplemental oxygen. 6. 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 Would recommend drying the patient out is much as possible before consideration of right heart catheterization. Will need assessment of LVEDP and assessment on and off oxygen to see whether or not chronic hypoxemia may be contributing. Thank you for allowing us to participate in the care of the patient. Pulmonary medicine will continue to follow along. Admission and Anticipated Discharge Date Admission Date: April 20, 2023 Subjective Patient seen and evaluated at bedside. He reports that he had issues with an IV "blowout" overnight, but reports otherwise he has been doing fine with his breathing. He wore his BiPAP most of the night. He reports improvement in his breathing overall. He has a mild cough which continues to show improvement as well. Review of Systems Review of Systems: Unchanged from admission. Physical Exam Physical Exam: VITAL SIGNS - Vital signs and nursing notes were reviewed. GENERAL - 67-year-old male appearing his stated age who is in no acute distress. Communicates well with provider and answers questions appropriately. LUNGS - Auscultation reveals diminished breath sounds at the RIGHT lung base. No rales appreciated. CARDIAC - RRR with S1/S2. No murmur, rubs, or gallops appreciated. EXTREMITIES - Nail clubbing not present. No peripheral cyanosis. Moderate pretibial edema present bilaterally with chronic hemosiderin staining noted. +3/5 radial palpated throughout. PSYCH - A&Ox3 and cooperates fully with examiner. Pt is very pleasant and interacts well with examiner. Results & Data Results & Data Vital Signs (Past 12 Hours) Vital Signs Temp Pulse Pulse Resp BP BP Pulse Ox 04/26/23 08:36 36.4 C L 71 20 130/65 94 04/26/23 07:02 61 04/26/23 04:26 36.3 C L 94 H 20 123/79 93 04/26/23 03:26 71 13 98 04/25/23 23:34 36.3 C L 75 20 117/75 92 04/25/23 23:00 69 04/25/23 22:59 72 21 92 O2 Del Method O2 Flow Rate FiO2 04/26/23 08:36 Nasal Cannula 7 04/26/23 07:02 04/26/23 04:26 Nasal Cannula 7 04/26/23 03:26 40 04/25/23 23:34 Nasal Cannula 7 04/25/23 23:00 04/25/23 22:59 50 PG Care Time/CCT Total # of Minutes Spent Total Time Spent with Patient: Total time spent is greater than 50% in coordination of care (as documented) at patient's floor/unit and/or counseling patient: Coding Level of Care Code 40801 SUB INP/OBS CARE 2/35MIN Diagnoses Acute respiratory failure with hypoxia J96.01 Chronicity: acute Pleural effusion J90 Cor pulmonale I27.81 Hypercapnic respiratory failure J96.92
--- NOTE | 2023-04-26 12:15 | Pre Anesthesia Assessment ---
Date of Service April 26, 2023 Pre Sedation Assessment Vital Signs Temp Pulse Pulse Resp BP BP Pulse Ox 04/26/23 10:50 63 20 131/84 90 04/26/23 09:12 04/26/23 08:36 36.4 C L 71 20 130/65 94 04/26/23 07:02 61 04/26/23 04:26 36.3 C L 94 H 20 123/79 93 04/26/23 03:26 71 13 98 04/25/23 23:34 36.3 C L 75 20 117/75 92 04/25/23 23:00 69 04/25/23 22:59 72 21 92 04/25/23 20:19 36.5 C 77 20 123/81 91 04/25/23 19:30 04/25/23 16:10 36.5 C 78 18 109/67 92 04/25/23 15:33 82 O2 Del Method O2 Flow Rate FiO2 04/26/23 10:50 Nasal Cannula 5 04/26/23 09:12 High Flow Nasal Cannula 5 04/26/23 08:36 Nasal Cannula 7 04/26/23 07:02 04/26/23 04:26 Nasal Cannula 7 04/26/23 03:26 40 04/25/23 23:34 Nasal Cannula 7 04/25/23 23:00 04/25/23 22:59 50 04/25/23 20:19 Nasal Cannula 7 04/25/23 19:30 High Flow Nasal Cannula 3.5 04/25/23 16:10 Nasal Cannula 4 04/25/23 15:33 Cardiovascular Additional Comments: RRR, grade 2/6 SM, S4, JVD 8 cm Respiratory Additional Comments: crackles, B dullness R>L, no wheezing, no resp distress Pre-Sedation Airway Assessment Smoking Status: Former smoker Hx Sleep Apnea: No Short, Thick Neck: No Thyromental Distance: > or= 3.5 Finger Breadths Oral Cavity: + WNL Mallampati Class: III ASA: ASA3 ASA 4 NPO Status Date of Last Intake of Fluids: 04/26/23 Time of Last Intake of Fluids: 07:00 Date of Last Intake of Solid Food: 04/25/23 Time of Last Intake of Solid Foods: 18:00 Notes The planned sedation has been discussed with the patient. Informed Consent was obtained. I have identified the patient, determined the appropriateness of sedation and have assessed the patient immediately prior to the procedure. All medicine(s) and interventions are by my order.
[2023-04-26 13:07] LABS: iSTAT Arterial Blood Gas HCO3 34 meg/L (19-24); iSTAT Arterial Blood Gas pCO2 64 mmHg (35-46); iSTAT Arterial Blood Gas pH 7.33 (7.35-7.45); iSTAT Arterial Blood Gas pO2 < 32 mmHg (80-95); iSTAT Carbon Dioxide 36 mmol/L (24-31); iSTAT Hematocrit 43 % (42-52); iSTAT Hemoglobin 14.6 g/dl (14.0-18.0); iSTAT Potassium 3.6 mmol/L (3.3-5.0); iSTAT Sodium 142 mmol/L (135-144)
--- NOTE | 2023-04-26 13:26 | Post Anesthesia Assessment ---
Date of Service April 26, 2023 Post Sedation Assessment Vital Signs Temp Pulse Pulse Resp BP BP Pulse Ox 04/26/23 10:50 63 20 131/84 90 04/26/23 09:12 04/26/23 08:36 36.4 C L 71 20 130/65 94 04/26/23 07:02 61 04/26/23 04:26 36.3 C L 94 H 20 123/79 93 04/26/23 03:26 71 13 98 04/25/23 23:34 36.3 C L 75 20 117/75 92 04/25/23 23:00 69 04/25/23 22:59 72 21 92 04/25/23 20:19 36.5 C 77 20 123/81 91 04/25/23 19:30 04/25/23 16:10 36.5 C 78 18 109/67 92 04/25/23 15:33 82 O2 Del Method O2 Flow Rate FiO2 04/26/23 10:50 Nasal Cannula 5 04/26/23 09:12 High Flow Nasal Cannula 5 04/26/23 08:36 Nasal Cannula 7 04/26/23 07:02 04/26/23 04:26 Nasal Cannula 7 04/26/23 03:26 40 04/25/23 23:34 Nasal Cannula 7 04/25/23 23:00 04/25/23 22:59 50 04/25/23 20:19 Nasal Cannula 7 04/25/23 19:30 High Flow Nasal Cannula 3.5 04/25/23 16:10 Nasal Cannula 4 04/25/23 15:33 Recovery Score Activity: Moves 4 extremities Respiration: Deep Breath/Cough Circulation: +/-20% PreAnes Value Consciousness: Fully Awake Oxygen Saturation: > 92% On Room Air Discharge Sedation Level of Care: Fast Track Phase II Post Sedation Plan On clinical assessment, the patient appears to have tolerated the sedation without complications. Patient is recovering as anticipated. Patient will continue to be monitored by nursing and may be discharged when sedation discharge criteria are met per below protocol. Upon Completions of procedure up to 15 minutes continue every 5 minute vital signs and the P.A.R. score; then discharge to a Phase I or Fast Track to Phase II per the following guidelines: * Discharge Patient to appropriate Phase II area if PAR is 8 or greater or return to pre- procedure baseline. The post - procedure orders will be as directed. * If PAR score is less than 8 or not return to pre-procedure baseline then patient will follow Phase I monitoring till PAR is reached for Phase II. The Phase I may be done in procedure room or may call to secure a Phase I area. * If naloxone or flumazenil are used for reversal, hold in Phase I for continued monitoring from when last reversal dose was given for a minimum of 60 minutes or longer pending the nurse and/or physician discretion of patient condition before discharge to Phase II. Please call the Sedation Physician to re-evaluate and complete post-note for discharge to Phase II area. Do NOT discharge from procedure sedation or Phase 1 until post- sedation evaluation note is complete by procedure /sedation MD Sedation Discharge Instructions to be given to the patient at discharge to home.
[2023-04-26] MEDS: FUROSEMIDE 40 MG/4 ML VIAL IV ONE (13:57)
--- NOTE | 2023-04-26 15:38 | Cardiac Catheterization ---
[facility] Data: Resources Representative Cardiac Status Clinical evaluation leading to the procedure None CAD Presenation: No Sxs, No angina Diagnostic Physicians Name: Yasir Gr MD, PhD Closure Device Recommendations: Medical Therapy and/or Counseling Cardiac Cath Procedure Full Procedure Date April 26, 2023 Pre-Procedure Diagnosis Pre-Procedure Diagnosis: CHF AUC Score AUC Score: 07 Post-Procedure Diagnosis Post-Procedure Diagnosis: Elevated Intracardiac Pressures Procedure(s) Performed Procedure(s) Performed: Right Heart Cath [employer] Yasir Gr MD, PhD Estimated Blood Loss Estimated Blood Loss: 5 cc Medication(s) Medication(s): Lidocaine 1% Summary of Findings Patient was brought to the cardiac catheterization suite where he was shaved and prepped in a sterile fashion. He had a large bore indwelling IV in the right antecubital veins. Soft tissue around the right IV site was anesthetized using 1 mL of 1% Xylocaine. Over a 0.014 wire of the large bore IV was exchanged for a 6 Malawian glide sheath. Through this, the 6 [place] Greenview-Fifi catheter was advanced over a Greenview-Fifi wire. Under fluoroscopic guidance and with the balloon inflated the catheter was advanced through the right atrium, across the tricuspid valve, and then back across the pulmonic valve where it was terminally located in the "wedge position". The guidewire was removed and the system flushed. Pulmonary capillary wedge pressure measurement was not obtained. The balloon was then deflated and the pulmonary arterial pressure was measured. Oxygen saturation and pulmonary artery was sampled. We utilized the systemic arterial oxygen saturations for calculations rather than sampling the arterial system. Catheter was then pulled back into the right ventricle where right ventricular hemodynamics were measured. Finally, the catheter was pulled back in the right atrium where her oxygen saturation was sampled as was the right atr ial pressure. Catheter was then removed from the patient. The cardiac output and index were determined by the method of Yael. The right brachial sheath was then removed and hemostasis was obtained using manual compression. Patient was hemodynamically stable and asymptomatic. This ended the case. Note: This study was performed with the patient on supplemental oxygen since he desaturated without O2. Right heart cath findings: PCWP-27 mmHg PAP-60/39 mmHg, mean 46 mmHg. RVP-57/12 mmHg, RVEDP 21 mmHg RAP-22 mmHg PA oxygen saturation: 55% RA oxygen saturation: 52% Systemic arterial oxygen saturation: 94% Cardiac output (Yael)-5.77 L/min Cardiac index (Yael)-2.3 L/min/m Pulmonary vascular resistance-3.29 Mahan units Systemic vascular resistance-12.83 Mahan units Total vascular resistance-16.64 Mahan units Summary: 1. Significantly elevated pulmonary capillary wedge pressure. 2. Significantly elevated pulmonary arterial pressure and pulmonary vascular resistance 3. Significantly elevated right ventricular end-diastolic pressure and right atrial pressure 4. Recommend continue diuresis for volume overload. Additional recommendations regarding elevated pulmonary vascular resistance per pulmonary medicine team. Hemodynamics Rest Ao:: Not performed Final Ao: Not performed LV: Not performed Recommendations Recommendations: Medical Therapy and/or Counseling Radiation Exposure (mGy) 482 mGy Contrast (mls) 5 cc Procedural Complication(s) None Disposition Resources Representative Holding/Recovery I attest to the content of the Intraoperative Record and any orders documented therein. Any exceptions are noted below. [facility] Card Cath Procedure Codes Cardiac Catheterization Procedure 1: Cardiovascular Cath Procedures: 71112 Right Heart Cath PG Care Time/CCT Total # of Minutes Spent Total Time Spent with Patient: Total time spent is greater than 50% in coordination of care (as documented) at patient's floor/unit and/or counseling patient:
[2023-04-26] MEDS: fentaNYL citrate PF 100 MCG/2 ML VIAL ONE (15:49)
[2023-04-26] MEDS: MIDAZOLAM HCL 1 MG/ML 2ML VIAL ONE (15:49)
[2023-04-26] MEDS: HEPARIN (PORCINE) 1000 UNIT/ML 10 ML (CATH LAB USE ONLY) ONE (15:49)
[2023-04-26] MEDS: OPTIRAY 350 ONE (15:50)
[2023-04-26] MEDS: NITROGLYCERIN/D5W 100MCG/ML 20ML SYR ONE (15:50)
[2023-04-26] MEDS: IODIXANOL (VISIPAQUE) 320 MG/ML 100ML IV ONE (15:50)
[2023-04-26] MEDS: niCARdipine HCL INJ 2.5 MG/ML 10 ML AMP ONE (15:50)
[2023-04-26] MEDS: INSULIN ASPART PER UNIT CHARGE SC SCH ×2 (15:50→20:28)
[2023-04-26] MEDS: FUROSEMIDE 20 MG TAB PO SCH (17:00)
[2023-04-27 05:17] LABS: BUN Creatinine Ratio 33.1 (10-20); Calcium 9.2 mg/dl (8.6-10.3); Creatinine Clr Calc Pharmacy 77.7 ml/min; Est GFR (African American) 66.4 ml/min; Est GFR (Non-African American) 57.3 ml/min; Potassium 3.9 mmol/L (3.5-5.1)
[2023-04-27 06:58] LABS: iSTAT Arterial Blood Gas HCO3 35 meg/L (19-24); iSTAT Arterial Blood Gas pCO2 66 mmHg (35-46); iSTAT Arterial Blood Gas pH 7.33 (7.35-7.45); iSTAT Arterial Blood Gas pO2 < 32 mmHg (80-95); iSTAT Carbon Dioxide 37 mmol/L (24-31); iSTAT Hematocrit 42 % (42-52); iSTAT Hemoglobin 14.3 g/dl (14.0-18.0); iSTAT Potassium 3.5 mmol/L (3.3-5.0); iSTAT Sodium 142 mmol/L (135-144)
--- NOTE | 2023-04-27 07:51 | Pulmonology Progress Note ---
Date of Service April 27, 2023 Assessment & Plan (1) Hypoxic respiratory failure: Chronicity: acute Qualified Code(s): J96.01 - Acute respiratory failure with hypoxia (2) Pleural effusion: (3) Cor pulmonale: (4) Hypercapnic respiratory failure: Plan Impression: 67-year-old male with sleep disordered breathing and COPD (overlap syndrome) admitted with hypoxemic respiratory failure. CT angiogram showed no evidence of PE but did show bilateral effusions which were small as well as some compressive atelectasis. He remains with his baseline hypercarbia. Right heart cath showed persistently elevated pressures consistent with fluid overload. Recommendations: 1. Hypoxemic respiratory failure: Supplemental oxygen continues to be titrated down. Goal saturation 88 or above. Continue with incentive spirometry and flutter valve. 2. Hypercarbic respiratory failure: Suspect related to overlap syndrome. Continue BiPAP 17/ at night. Patient somewhat reluctant to use our BiPAP and refuses to bring his home machine and 3. Bilateral effusions: Bedside ultrasound was performed. Pleural effusions are very small bilaterally not amenable to thoracentesis. Continue diuresis. 11 L negative at this time. Continue to target diuresis net -1 to 2 L per 24 hours. Continue Lasix 40 mg IV twice daily. Can consider addition of Aldactone or metolazone if needed 4. Increase activity as tolerated. 5. COPD: The patient does not appear bronchospastic. Continue Anoro/Arnuity and as needed albuterol. Remains afebrile. Cultures negative to date. Patient will require outpatient pulmonary function testing to be performed once clinically stable. It is likely he will need to go home on supplemental oxygen. 6. Cor pulmonale: Secondary to elevated filling pressures. Thank you for allowing us to participate in the care of the patient. This point in time the patient appears to be improving with diuresis. May be eligible for discharge in the next day or 2 depending on his oxygen needs. He may need to go home with supplemental oxygen. [facility] but we would be happy to see him here in follow-up if needed. Will follow the patient peripherally. Please contact us directly with additional questions Admission and Anticipated Discharge Date Admission Date: April 20, 2023 Subjective Patient seen and examined. EMR reviewed. He is status post right heart catheterization yesterday which demonstrated an elevated wedge pressure with elevated right-sided filling pressures consistent with fluid overload. Continue diuresis was recommended. We have been able to wean his oxygen down to 6 L/min. He had difficulty using our BiPAP machine at night. He again inquires about going home as he is quite anxious to leave the hospital. He is not experiencing any fevers chills or night sweats. No chest pain or palpitations. He is tolerating a diet. No changes otherwise overnight Review of Systems 2 Review of Systems: All systems reviewed & are unremarkable except as noted in Subjective Physical Exam 2 Constitutional: WD/WN, vitals as above Neck: trachea midline, no thyromegaly Respiratory: normal respiratory effort, lungs clear to auscultation Cardiovascular: RRR, no murmur, no edema Gastrointestinal (Abdomen): normal bowel sounds, soft, nontender, no hepatosplenomegaly Musculoskeletal: Extremities: extremities normal to inspection Skin: no rashes, warm and dry Lymphatic: no cervical lymphadenopathy Results & Data Results & Data Vital Signs (Past 12 Hours) Vital Signs Temp Pulse Pulse Resp BP BP Pulse Ox 04/27/23 07:22 36.7 C 69 18 126/80 92 04/27/23 03:49 36.6 C 70 16 114/72 91 04/27/23 00:00 78 04/26/23 23:00 36.5 C 63 19 102/70 90 04/26/23 21:55 O2 Del Method O2 Flow Rate 04/27/23 07:22 Nasal Cannula 6 04/27/23 03:49 Free Flow/Blow-by 6 04/27/23 00:00 04/26/23 23:00 Nasal Cannula 4 04/26/23 21:55 Nasal Cannula 4 Laboratory Results 04/26/23 05:23 04/27/23 04:30 Diagnostic Findings Right heart cath 04/26/2023: Wedge pressure 27 PA pressure 60/39 with a mean of 46 Right ventricular pressure is 57/12 with an RVEDP of 21 Right atrial pressure 21 No oxygen step up or stepdown Cardiac index 2.3 PVR 3.29 Mahan units PG Care Time/CCT Total # of Minutes Spent Total Time Spent with Patient: Total time spent is greater than 50% in coordination of care (as documented) at patient's floor/unit and/or counseling patient: Coding Level of Care Code 41741 SUB INP/OBS CARE 350MIN Diagnoses Acute respiratory failure with hypoxia J96.01 Chronicity: acute Pleural effusion J90 Cor pulmonale I27.81 Hypercapnic respiratory failure J96.92
[2023-04-27] MEDS: FUROSEMIDE 40 MG/4 ML VIAL IV SCH (08:14)
--- NOTE | 2023-04-27 17:28 | Hospitalist Progress Note ---
Date of Service April 27, 2023 Assessment & Plan (1) Hypoxic respiratory failure: Plan: Patient presents with acute hypoxic respiratory failure s/p treatment for acute heart failure preserved EF exacerbation Cor pulmonale and HFpEF continue diuresis until mild CHLOE Patient had right heart catheterization 04/26/2023, confirms heart failure Pulmonary medicine continues to diurese and not a candidate for thoracentesis, restart Xarelto discontinued steroids - His CT scan of his chest is with atelectasis and bilateral pleural effusions with RT > LT- likely related to fluid volume status and atelectasis comments of underlying emphysema - Respiratory biofire negative, no opacification on CXR, no WBC, no sputum production - doubt infective at this time -Pt has a history of tobacco use(2-3 pks ) and may consider if chronic lung disease has a portion of this issue with hypoxia diabetes control restarting metformin, stopping steroids (2) Acute on chronic heart failure with preserved ejection fraction: Plan: Acute on chronic heart failure exacerbation - Prehospital Bilateral lower extremity edema, with orthopnea and dyspnea at rest and exertion- reports dietary indiscretion with salt - Duplex right lower extremity-negative for DVT -appears more consistent with right sided failure/cor pulmonale - Appreciate CHF clinic evaluation- Continue BB and NADIRA, reduced nadira i dose consider low-dose Lasix following renal function - Echo completed Ef preserved Patient with chronic atrial fibrillation - continue with Xarelto - currently rate controlled - Continue with Metoprolol and Diltiazem-reduce doses of diltiazem to make room for diuresis if required Replete electrolytes when needed - (3) Abnormal CT scan: Plan: Abnormal lung CT scan with interlobular and septal thickening- patient likely has some aspect of COPD/Emphysema- however is without recent PFTS - He may likely benefit from further work up as an outpatient and inhalers - His pleural effusions consideration for thoracentesis once xarelto is ruled out (4) 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: Plan: DM II - diabetic diet - Insulin sliding scale metformin restarted (5) AISHA (obstructive sleep apnea): Plan: typically uses bipap at night, now on [place]anna flow Plan Patient will likely need home oxygen consideration for discharge will likely be when his oxygen requirements below 6 this likely will be 04/25 04/26 Admission and Anticipated Discharge Date Admission Date: April 20, 2023 Subjective pt is improved, still diuresing, has had 12 L out over in and lost 20+ pounds, RHC suggests increased heart pressures consistent with volume overload oxygen requirement is slowly coming down Physical Exam Physical Exam: pt still with fair air movement, no wheezes no crackles trace LE edema, little jvd cardiac exam is regular Results & Data Results & Data Vital Signs (Past 12 Hours) Vital Signs Temp Pulse Pulse Resp BP Pulse Ox O2 Del Method 04/27/23 15:40 97.9 F 73 17 118/72 92 Nasal Cannula 04/27/23 12:00 99.1 F 83 15 93/63 L 94 Nasal Cannula 04/27/23 08:00 Nasal Cannula 04/27/23 08:00 78 04/27/23 07:22 98.1 F 69 18 126/80 92 Nasal Cannula O2 Flow Rate 04/27/23 15:40 4 04/27/23 12:00 5 04/27/23 08:00 5 04/27/23 08:00 04/27/23 07:22 6 Laboratory Results review chemistry review poc glucose discussed case with Dr Mckeon PG Care Time/CCT Total # of Minutes Spent Total Time Spent with Patient: Total time spent is greater than 50% in coordination of care (as documented) at patient's floor/unit and/or counseling patient: Coding Level of Care Code 12189 SUB INP/OBS CARE 3/50MIN Diagnoses Acute respiratory failure with hypoxia J96.01 Chronicity: acute Acute on chronic heart failure with preserved ejection fraction I50.[address] scan R93.89 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
[2023-04-28 04:11] LABS: Hematocrit (blood only) 40.9 % (42.0-52.0); Hemoglobin 13.1 g/dl (14.0-18.0); Mean Corpuscular Volume 96.9 fL (80.0-100.0); Mean Platelet Volume 11.3 fL (9.4-12.4); Platelet Count 248 K/uL (130-400); RDW Coefficient of Variation 16.6 % (11.5-14.5); Red Blood Count 4.22 M/uL (4.70-6.10); White Blood Count 9.31 K/ul (4.8-10.8)
[2023-04-28 04:25] LABS: BUN Creatinine Ratio 30.6 (10-20); Calcium 9.3 mg/dl (8.6-10.3); Creatinine Clr Calc Pharmacy 78.6 ml/min; Est GFR (African American) 70.4 ml/min; Est GFR (Non-African American) 60.7 ml/min; Potassium 3.6 mmol/L (3.5-5.1)
[2023-04-28] MEDS: RIVAROXABAN 20 MG TAB PO SCH (08:15)
--- NOTE | 2023-04-28 18:29 | Discharge Summary ---
Date of Service April 28, 2023 Admission HPI Per Admitting Provider 67 YOM with medical history of: HFpEF (2022 EF 65-70% with RVSP 50-60), permanent afib (on Xarelto), DMII, AISHA (BiPAP ), previous smoker (quit >20 years ago), HTN. Patient was brought to the hospital today for complaints of difficulty breathing and low oxygen saturations at home. Patient reports that since he has been having increasing shortness of breath as well as increased swelling of his legs. He has also not been able to lay flat since and has been sleeping in the recliner. He is accompanied by his and she reports that when he becomes short of breath like this, that he becomes more sedentary and has not been doing much over the past few days. Patient states that this is because it was so hard for him to catch his breath. He has not missed any doses of his Xarelto at home. His shortness of breath is not associated with any cough, chest pain, mucous production, fever or chills. He is not on oxygen at home. Patient does have an old wound to his right lower leg, which he reports he shut it in the truck door in [facility], he was noted to have a hematoma at that time and was also treated with abx therapy. The right leg is also larger in size compared to the left leg, and do have concern of possible DVT. In the EMD the patient was noted to be in the 70s via pulse oximetry on room air on arrival, using accessory muscles to breathe. He was placed on BiPAP at that time and had good response with improvement in his oxygenation on 50% FIO2 and NIPPV. He had routine labs performed to include HsCTNI, BNP. He had a non-contrasted CT scan of his chest performed, CXR, and ECG. His ECG was without STEMI and no complaints of chest pain. Initial HsCTNI was also negative. His CT scan of his chest was noted with interlobular septal thickening and bilateral plueral effusions RT > LT and left with small loculation. He has had PFTs in the past, however not available for review and states that he does not want to have those done again. He is not on any inhlaers at home. Patient will be admitted to medical telemetry for IV diuresis, continuation of BiPAP PRN and at night. Will obtain repeat ECHO and referral to CHF clinic. CODE: FULL Principal Diagnosis cor pulmonale HFPEF COPD Discharge Exam Pt is much improved Discharge Data Allergies Allergy/AdvReac Type Severity Reaction Status Date / Time dicyclomine [From Bentyl] Allergy Unknown CAN'T Verified 04/20/23 14:11 REMEMBER Consultations 04/20/23 13:15 ED Decision to Admit Stat 04/20/23 17:04 [facility] CHF Program Referral Routine 04/21/23 10:31 Consult Pulmonology Routine 04/24/23 11:42 Consult Cardiology Routine Procedures Performed Operation Date: 04/26/23 09:30 Actual Procedures p Cineradiography w/Routine Exam - Yasir Gr MD, PhD p Right Heart Cath Only - Yasir Gr MD, PhD s Venogram, Unilateral - Yasir Gr MD, PhD Ordered Studies Chest X-Ray 04/20/23 11:43 XR chest 1V portable HISTORY: Chest pain, nonspecific COMPARISON: Chest 01/23/2023. FINDINGS: No pneumothorax. The heart remains enlarged. Small bilateral pleural effusions have slightly progressed. Calcified granuloma again noted within the left midlung zone. Bibasilar patchy densities are again noted. Hazy peripheral density within the left midlung zone has also progressed. This was demonstrated to be a loculated component of the pleural effusion on the prior chest CT. Emphysema again noted. IMPRESSION: 1. Small bilateral pleural effusions have slightly progressed including the loculated component of the left pleural effusion. 2. Cardiomegaly and pulmonary edema again noted. 3. Patchy bibasilar densities persist. ACT 112: Negative or not required by law. Electronically signed by: Toby Deleon M.D. 04/20/2023 1:[address] 04/20/23 12:13 CT OF THE CHEST WITHOUT IV CONTRAST CLINICAL HISTORY: Shortness of breath. Possible congestive heart failure. COMPARISON STUDY: Chest CT and chest radiograph January 23, 2023. CT DOSE: 886.78 mGy.cm TECHNIQUE: Axial images of the chest were obtained without IV contrast. Images were reviewed in the axial, sagittal, and coronal planes. IV contrast was not administered for this examination. Automated exposure control was utilized for the study. A dose lowering technique was utilized adhering to the principles of ALARA. FINDINGS: Mildly enlarged mediastinal lymph nodes are similar to CT of January 23, 2023. Index right paratracheal lymph node on image 102 of 237 measures 2.3 x 1.6 cm. There are several calcified prevascular nodes. The heart is mildly enlarged. There is no pericardial effusion. No pneumothorax. A small loculated left pleural effusion with fluid along the fissure has mildly increased in size since CT of January 23, 2023. A small to moderate right pleural effusion has slightly increased in size. Subpleural right lower lobe opacity favors atelectasis. There is no consolidation to suggest pneumonia. Underlying emphysema there is interlobular septal thickening and mild groundglass opacities within the lungs. There is a calcified granuloma within the lingula. The central airways are patent. Bilateral gynecomastia is incidentally noted. Low attenuation bilateral adrenal nodules are unchanged. These favor adenomas. IMPRESSION: 1. Cardiomegaly with mild pulmonary edema. 2. Small to moderate right pleural effusion. Small loculated left pleural effusion. These effusions have mildly increased in size since prior CT. 3. Emphysema. 4. No change in mediastinal lymphadenopathy. This may be due to chronic pulmonary edema. ACT 112: Negative or not required by law. Electronically signed by: Tomas Parra M.D. 04/20/2023 12:49 PM Venous Doppler Study 04/20/23 13:41 RIGHT LOWER EXTREMITY VENOUS DOPPLER HISTORY: Right leg errythma/redness- r/o DVT COMPARISON STUDY: None. FINDINGS: There is normal compressibility, flow, and augmentation within the right lower extremity deep venous system. There is diffuse subcutaneous edema. IMPRESSION: No DVT within the right lower extremity ACT 112: Negative or not required by law. Electronically signed by: Toby Deleon M.D. 04/20/2023 3:23 PM Chest X-Ray 04/21/23 23:22 SINGLE VIEW CHEST CLINICAL HISTORY: Hypoxia FINDINGS: 2 AP, portable, upright chest radiographs are compared to chest x-ray and chest CT dated 04/20/2023. The heart is enlarged noting atherosclerotic calcification. There is pulmonary vascular congestion. Emphysema and chronic interstitial thickening similar to previous. There are very large left pleural effusions with dependent consolidation. Loculated fluid is seen along the left major fissure. There are calcified granulomas. No pneumothorax is seen. The skeletal structures are osteopenic. The bony thorax is grossly intact. IMPRESSION: 1. Cardiomegaly and emphysema with evidence of congestive failure. 2. Right large left pleural effusions with dependent consolidation. The right pleural effusion appears increased in size from previous. ACT 112: Negative or not required by law. Electronically signed by: Nolan Danielson M.D. 04/22/2023 12:32 AM Chest X-Ray 04/23/23 08:03 XR chest 1V portable HISTORY: 67 years-old Male persistent hypoxia acute hypoxia COMPARISON: 04/21/2023 TECHNIQUE: AP view of the chest FINDINGS: Cardiac silhouette is enlarged. Atherosclerosis of the aorta. Emphysema. No pneumothorax. Calcified pulmonary granulomata. Pulmonary vascular congestion with interstitial coarsening. Small pleural effusions with mild bibasilar consolidation. There is persistent ill-defined left midlung opacity which has improved in the interval. IMPRESSION: 1. Cardiomegaly with mildly improved pulmonary edema. 2. Small pleural effusions with mild bibasilar opacities redemonstrated. ACT 112: Negative or not required by law. The above report was generated using voice recognition software. It may contain grammatical, syntax or spelling errors. Electronically signed by: Renan Gray M.D. 04/23/2023 9:02 AM Chest CTA 04/24/23 16:33 Exam(s): CTA CHEST IV Amt: 119ML OPTIRAY 320 EXAM: CT Angiography Chest With Intravenous Contrast CLINICAL HISTORY: Reason for exam: PE. TECHNIQUE: Axial computed tomographic angiography images of the chest with intravenous contrast. CTDI is 19 mGy and DLP is 887.7 mGy-cm. Automated exposure control was utilized for the study. A dose lowering technique was utilized adhering to the principles of ALARA. MIP reconstructed images were created and reviewed. COMPARISON: CT of the chest 01/23/23 FINDINGS: Pulmonary arteries: Unremarkable. No pulmonary embolus. Aorta: No acute findings. No thoracic aortic aneurysm. Lungs: Bilateral lower lobe atelectasis versus pneumonia, regular the left foot small right and trace left effusions. No mass. Pleural space: Unremarkable. No significant effusion. No pneumothorax. Heart: Cardiomegaly. No pericardial effusion. No evidence of RV dysfunction. Mediastinum: Multiple scattered mediastinal lymph nodes measuring up to 16 mm, likely reactive. Bones/joints: Calcification of the anterior longitudinal ligament. Multilevel degenerative changes. No acute fracture. No dislocation. Soft tissues: Bilateral adrenal lesions measuring 2.3 cm on the right and 16 mm on the left demonstrating Hounsfield units of adenomas. These appear stable compared to prior exam Lymph nodes: See above. IMPRESSION: 1. No pulmonary embolus. 2. Bilateral lower lobe atelectasis versus pneumonia, regular the left foot small right and trace left effusions. His emphysema. Left lower lobe granuloma. Electronically signed by: Heaven Matthews MD 04/24/23 21:22 PM Hospital Course (1) Hypoxic respiratory failure: Patient presents with acute hypoxic respiratory failure s/p treatment for acute heart failure preserved EF exacerbation Cor pulmonale and HFpEF continue diuresis until mild CHLOE Patient had right heart catheterization 04/26/2023, confirms heart failure Pulmonary medicine continues to diurese and not a candidate for thoracentesis, restart Xarelto discontinued steroids - His CT scan of his chest is with atelectasis and bilateral pleural effusions with RT > LT- likely related to fluid volume status and atelectasis comments of underlying emphysema - Respiratory biofire negative, no opacification on CXR, no WBC, no sputum production - doubt infective at this time -Pt has a history of tobacco use(2-3 pks ) and may consider if chronic lung disease has a portion of this issue with hypoxia diabetes control restarting metformin, (2) Acute on chronic heart failure with preserved ejection fraction: Acute on chronic heart failure exacerbation - Prehospital Bilateral lower extremity edema, with orthopnea and dyspnea at rest and exertion- reports dietary indiscretion with salt - Duplex right lower extremity-negative for DVT -appears more consistent with right sided failure/cor pulmonale - Appreciate CHF clinic evaluation- Continue BB and NADIRA, reduced nadira i dose consider low-dose Lasix following renal function - Echo completed Ef preserved Patient with chronic atrial fibrillation - continue with Xarelto - currently rate controlled - Continue with Metoprolol and Diltiazem-reduce doses of diltiazem to make room for diuresis - (3) Abnormal CT scan: Abnormal lung CT scan with interlobular and septal thickening- patient likely has some aspect of COPD/Emphysema- however is without recent PFTS - He may likely benefit from further work up as an outpatient and inhalers - His pleural effusions too small for thoracentesis per pulmonary med (4) 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 Discharge Plan Discharge Items Patient Disposition: Home - Home Health Services Reason For Visit: HYPOXIC RESPIRATORY FAILURE Discharge Diagnosis: shortness of breath from excess fluid in your body this is a form of heart failure made worse by low oxygen levels copd Activity: Per Instructions section Activity Comment: slowly increase activity levels Non-emergency contact: Primary Care Provider and Billposting Supervisor Call non-emergency contact if: your symptoms worsen Follow-up/Referrals: Nolan Soria MD [Primary Care Provider] - 05/05/23 11:30 am Carmen Varma PA-C [Physician Joy Operator Helper] - 05/06/23 10:30 am Diet: Low Sodium (2gm) Addtl Attending Provider Instructions: you have a combination of things that are making you short of breath one is your smoking history, for now please use inhaler and follow up with your lung specialist for further diagnosis and adjustment second and probably more influencial is your heart and excess fluid in your body, this is made worse by low oxygen levels, be sure to wear your oxygen at all times until told not to by your doctor, and wear your bipap at night you will be sent home on a water pill and will need to have your blood work checked at your doctors office visit Addtl Production Illustrator Provider Instructions: Call 911 and go to the Emergency Room if: * You have tightness or pain in your chest that does not go away with rest or Nitroglycerin * You are very short of breath even with rest Call your doctor if any of the following symptoms or problems start or get worse: * Shortness of breath or difficulty breathing * Wake up at night short of breath * Chest pain * Cough * Swelling of your hands, fee, or legs * More fatigued or tired with your normal activity * Palpitations - sudden fast heart beats WEIGHT * Weigh yourself every morning after using the bathroom. * Use the same scale. * Wear the same amount of clothing. * Write your weight down on your chart. * Call your doctor if you gain more than 2-3 pounds in 1-2 days. MEDICATIONS * Use this discharge instruction sheet for instructions. * Take your medications at the time your doctor ordered. * Do not skip a dose of your medicines. * If you miss a dose of medicine, take as soon as possible, but DO NOT DOUBLE A DOSE. * Read your medicine information when you get home. * Know all of the side effects of your medicine. * Call your doctor's office if you have any side effects. * Be sure all of your doctors know what medicine and herbs you take (including cold, flu, and herbal medicine). * Pain Medicine: If you do not get relief from your pain, please call your doctor for help. Take the following with you to your follow-up doctor appointments: * Weight Chart * Medication List * List of questions Do not drink excessive alcohol, beer or wine. Pending Studies at Discharge: No Stand-Alone Forms: [facility] [employer], Smoking Cessation Medications and DC Order Prescriptions: New diltiazem HCl 180 mg Capsule,Extended Release 24hr 180 mg PO DAILY Qty: 30 3RF lisinopril [Zestril] 5 mg Tablet 5 mg PO DAILY Qty: 30 3RF fltmchjoadl-leuingwsg-kwjhujuh 100-62.5-25 mcg blister with device 1 inh inhalation DAILY Qty: 28 5RF Continued albuterol sulfate 90 mcg/actuation aerosol powdr breath activated 2 inh inhalation Q4H PRN (Reason: shortness of breath or wheezing) Qty: 1 1RF allopurinol 300 mg tablet 300 mg PO BID Qty: 180 1RF atorvastatin 10 mg tablet 10 mg PO QPM Qty: 90 1RF Rx Instructions: take with evening meal for cholesterol furosemide 40 mg tablet 40 mg PO DAILY Qty: 90 1RF Xarelto 20 mg tablet 20 mg PO DAILY Qty: 90 1RF Rx Instructions: must administer with a meal/food metformin 500 mg tablet 500 mg PO BID Qty: 180 1RF metoprolol tartrate 100 mg tablet 100 mg PO BID Qty: 180 3RF (DME) oxygen See Rx Instructions .Route .MEDSUPPLY Qty: 2 0RF Rx Instructions: As directed Discontinued diltiazem HCl 240 mg capsule,extended release 24hr 240 mg PO DAILY Qty: 90 1RF lisinopril 20 mg tablet 20 mg PO DAILY Qty: 90 1RF Hold Instructions: Resume on 02/09/23. Until you see your PCP, BP were low- normal during your stay Discharge Orders: Discharge Order (Routine); Ordered 04/28/23 Ordered By: Bashir Reaves Admission Data Admit Date/Time: 04/20/23 13:39 Attending Provider: Bashir Reaves Admit Provider: Todd Leblanc Primary Care Provider: Nolan Soria Other Providers: Carmen Varma; Todd Leblanc; Mesfin Bailey; Vance Marrero; Pelon Hendrix; Rigoberto Smith; Yasir Gr; Anastacio Payne; Priyank Vega Jr; Fidel Trujillo; Lynn Knutson; Estella Young; Jorge Singh; Jorge Shore; Jayson Negron; Nicole Stokes; Devin Cunningham; Ciro Bermudez; Jose Chappell Other Interventions: Discharge Summary Assessment (RN) Last Done: 04/28/23 14:27 Coding Level of Care Code 69139 INP/OBS DISCH >30 MIN Diagnoses Acute respiratory failure with hypoxia J96.01 Chronicity: acute Acute on chronic heart failure with preserved ejection fraction I50.[address] scan R93.89 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
== END 2023-04-28 16:13 | disposition home health service (06) | DRG 286 ==
LOC: ED 11:13 → SUATTDRO 13:39 → EDINP 13:39 → 2N 04-21 15:04 → 1E 04-26 13:11
PROC: CLB.CRH (2023-04-26 09:30)

== ENCOUNTER 2023-10-11 08:41 | Inpatient (IN) ==
--- NOTE | 2023-09-26 11:45 | PAT Medication Instructions ---
Medication Instructions Date of Service September 26, 2023 Home Medications Medication Instructions Recorded albuterol sulfate 90 mcg/actuation 2 inh inhalation Q4H PRN shortness 03/18/23 breath activated powder inhaler of breath or wheezing #1 ea allopurinol 300 mg tablet 300 mg PO BID #180 tabs 03/18/23 atorvastatin 10 mg tablet 10 mg PO QPM #90 tabs 03/18/23 rivaroxaban 20 mg tablet (Xarelto) 20 mg PO DAILY #90 tabs 03/18/23 metformin 500 mg tablet 500 mg PO BID #180 tabs 03/21/23 metoprolol tartrate 100 mg tablet 100 mg PO BID #180 tabs 03/22/23 oxygen #2 ea 04/28/23 empagliflozin 10 mg tablet 10 mg PO QAM #30 tabs 05/18/23 (Jardiance) blood sugar diagnostic #100 ea 06/16/23 lancets #200 ea 06/16/23 diltiazem HCl 180 mg 180 mg PO DAILY #30 caps 08/09/23 capsule,extended release 24 hr lisinopril 5 mg tablet 5 mg PO DAILY #90 tabs 08/09/23 fluticasone fur. 100 mcg-umeclid 1 inh inhalation DAILY #28 ea 08/17/23 62.5 mcg-vilant 25 mcg inhalat.powder furosemide 80 mg tablet 80 mg PO DAILY #180 tabs 09/16/23 albuterol sulfate 90 mcg/actuation breath activated powder inhaler 2 inh inhalation Q4H PRN shortness of breath or wheezing allopurinol 300 mg tablet 300 mg PO BID atorvastatin 10 mg tablet 10 mg PO QPM rivaroxaban 20 mg tablet (Xarelto) 20 mg PO DAILY metformin 500 mg tablet 500 mg PO BID metoprolol tartrate 100 mg tablet 100 mg PO BID empagliflozin 10 mg tablet (Jardiance) 10 mg PO QAM diltiazem HCl 180 mg capsule,extended release 24 hr 180 mg PO DAILY lisinopril 5 mg tablet 5 mg PO DAILY fluticasone fur. 100 mcg-umeclid 62.5 mcg-vilant 25 mcg inhalat.powder 1 inh inhalation DAILY furosemide 80 mg tablet 80 mg PO DAILY ASK your prescriber and surgeon rivaroxaban 20 mg tablet (Xarelto) 20 mg PO DAILY (From anesthesia perspective, Rivaroxaban/Xarelto needs to be stopped 72 hours/3 days before surgery. Please check if okay with doctor that prescribes this to you) DO NOT take the morning of surgery metformin 500 mg tablet 500 mg PO BID lisinopril 5 mg tablet 5 mg PO DAILY furosemide 80 mg tablet 80 mg PO DAILY Take morning of surgery With a small sip of water, OTHERWISE NOTHING TO EAT OR DRINK AFTER MIDNIGHT: albuterol sulfate 90 mcg/actuation breath activated powder inhaler 2 inh in halation Q4H PRN shortness of breath or wheezing (use if needed; please bring rescue inhaler with you to hospital day of surgery if possible) allopurinol 300 mg tablet 300 mg PO BID metoprolol tartrate 100 mg tablet 100 mg PO BID diltiazem HCl 180 mg capsule,extended release 24 hr 180 mg PO DAILY fluticasone fur. 100 mcg-umeclid 62.5 mcg-vilant 25 mcg inhalat.powder 1 inh inhalation DAILY Take evening before surgery albuterol sulfate 90 mcg/actuation breath activated powder inhaler 2 inh inhalation Q4H PRN shortness of breath or wheezing (if needed) allopurinol 300 mg tablet 300 mg PO BID atorvastatin 10 mg tablet 10 mg PO QPM metformin 500 mg tablet 500 mg PO BID metoprolol tartrate 100 mg tablet 100 mg PO BID Other Notes If you have any questions please call us at [phone] or [phone] or [phone] or [phone]
--- NOTE | 2023-09-29 08:56 | Anesthesiology Consultation ---
Date of Service September 29, 2023 Assessment & Plan (1) Encounter for pre-operative examination: - Check BSG AM DOS - Check coags AM DOS (Elevated coags on preop labs in setting of Xarelto which will be held prior to surgery. Will recheck coags level DOS) - Infectious disease screening: Per assessment on 09/29/23: No known recent infectious disease contacts or current infectious disease symptoms. - Outpatient joint assessment: Pt currently scheduled for inpatient pathway. If surgeon requests review for outpatient joint pathway, patient is not recommended candidate for outpatient joint program from anesthesia standpoint based on available information. - Xarelto instructions: patient made aware that for neuraxial anesthesia, Xarelto needs to be held 72 hours/3 days prior to surgery. Patient voiced understanding/will check if okay with prescriber. - Pulmonary visit (09/02/23): "His COPD symptoms at this time are stable. He is to continue Trelegy.. Diastolic heart failure.. He has significant heart failure with preserved ejection fraction. Continue follow-up with the heart failure clinic continue Lasix.. Other secondary pulmonary hypertension.. Type II and III pulmonary hypertension. Continue diuresis and BiPAP therapy. Patient is continued [sic- 'discontinued'] oxygen on his own. Stressed importance of compliance with oxygen therapy. Will check an overnight pulse oximetry." Patient states he has monitored his home O2 levels closely at home and has not required supplemental oxygenation since 04/2023 admission. Patient was 96% on RA at PAT visit 09/29/23. Patient states overnight pulse oximetry testing not arranged yet. - IN Heart failure visit (09/16/23): "HFpEF: Suspect currently symptoms like multifactorial- CHF, AISHA, suspected COPD, recent pneumonia/COVID19. Currently symptoms consistent with right sided failure- likely cor pulmonale. He responded well to diuresis and thoracentesis was not required. Renal function remains at baseline. EF remains preserved. BNP is trending down. He is no longer requiring O2. Currently taking Lasix 80 mg daily. He can increase to 80 mg BID as needed. Monitor for signs of volume depletion. Jardiance well tolerated. Recommend daily standing weights at home when able. Dry weight currently 238 lb. Suspect this is his dry weight. Notify HF Program of 2+ lb weight gain overnight or 5+ lb in 1 week. Low sodium diet, less than 2,000 mg daily. He was provided with additional educational materials. We discussed the nature of heart failure and the goals of the program today. He is agreeable to ongoing participation. Disposition: Plan to follow up with the heart failure program in 3 months. Maintain close follow up with pulm and PCP. establish with general cardiology." Referred to establish with general cardiology- scheduled with [facility] [place] cardio 02/2024. Workload message sent to heart failure clinic to make them aware of upcoming surgery. - Heart failure provider response (10/03/23): "Patient was last evaluated 09/16/23 with the heart failure program. He was optimized from a heart failure standpoint at that time. As long as he is not having any worsening symptoms I have no additional recommendations. His two recent hospitalizations were pulmonary in nature and his trace pleural effusions are chronic. Would recommend holding Jardiance 3 days prior to procedure." > Patient reported at PAT visit 09/29/23, feeling well/stable from previous heart failure visit/evaluation. - Patient acceptable risk for surgery pending surgeon-ordered PCP preop e valuation ([facility] appt [place]/03). Chart Review Chart Review: Patient seen in Pre Admission Testing Teaching & Discussion Pre-Anesthesia Teaching/Discussion Notes: Instructed NPO after midnight before surgery,except medications with 15 cc of water. Medication instructions provided according to the PAT guidelines. History Surgery Operation Date: 10/11/23 10:40 Proposed Procedures p Right Total Knee Arthroplasty - Yasir Beltran MD Height/Weight Height: 6 ft 4 in Weight: 110.2 kg Allergies Allergy/AdvReac Type Severity Reaction Status Date / Time dicyclomine [From Bentyl] Allergy Unknown Unknown Verified 09/29/23 13:57 Medications Home Medications Medication Instructions Recorded Confirmed Last Taken albuterol sulfate 90 mcg/actuation 2 inh inhalation Q4H PRN shortness 03/18/23 09/26/23 Unknown breath activated powder inhaler of breath or wheezing #1 ea allopurinol 300 mg tablet 300 mg PO BID #180 tabs 03/18/23 09/26/23 04/20/23 08:00 atorvastatin 10 mg tablet 10 mg PO QPM #90 tabs 03/18/23 09/26/23 Unknown rivaroxaban 20 mg tablet (Xarelto) 20 mg PO DAILY #90 tabs 03/18/23 09/26/23 04/20/23 08:00 metformin 500 mg tablet 500 mg PO BID #180 tabs 03/21/23 09/26/23 04/20/23 08:00 metoprolol tartrate 100 mg tablet 100 mg PO BID #180 tabs 03/22/23 09/26/23 04/20/23 08:00 oxygen #2 ea 04/28/23 09/16/23 Unknown empagliflozin 10 mg tablet 10 mg PO QAM #30 tabs 05/18/23 09/26/23 Unknown (Jardiance) blood sugar diagnostic #100 ea 06/16/23 09/16/23 Unknown lancets #200 ea 06/16/23 09/16/23 Unknown diltiazem HCl 180 mg 180 mg PO DAILY #30 caps 08/09/23 09/26/23 Unknown capsule,extended release 24 hr lisinopril 5 mg tablet 5 mg PO DAILY #90 tabs 08/09/23 09/26/23 Unknown fluticasone fur. 100 mcg-umeclid 1 inh inhalation DAILY #28 ea 08/17/23 09/26/23 Unknown 62.5 mcg-vilant 25 mcg inhalat.powder furosemide 80 mg tablet 80 mg PO DAILY #180 tabs 09/16/23 09/26/23 Unknown Past Medical History Medical History Chronic atrial fibrillation Taking Xarelto COPD (chronic obstructive pulmonary disease) Diabetes DJD (degenerative joint disease) History of cor pulmonale History of COVID-19 (01/2023) Hospitalized x 3 days at [facility] HTN (hypertension) Hx of congestive heart failure Hx of diabetic foot ulcer Hx of left foot ulcer "resolved" per patient- no active infection/ulcer Monitored/following with [facility] for ankle and foot care Hx of gout Hyperlipidemia Lumbar spinal stenosis AISHA (obstructive sleep apnea) BIPAP (compliant) Osteoarthritis Other secondary pulmonary hypertension Echo/RHC 04/2023 Type II/III Follows with [facility]. Per visit 04/2023, "Predominantly he has pulmonary hypertension is postcapillary due to diastolic heart failure. Treatment of this syndrome is maintaining an adequate volume status." Venous insufficiency Exercise / Class Metabolic Activity III < 4 Walking/Shop/Light housework Past Family History Family History Mother Coronary heart disease Hypertension Diabetes Denies family history of Ovarian cancer Prostate cancer Myocardial infarction Breast cancer Colorectal cancer Past Surgical History Surgical History H/O total hip arthroplasty Right History of lumbar fusion (2008) History of vasectomy Hx of cardiac catheterization (04/26/23) RHC- Significantly elevated pulmonary capillary wedge pressure. Significantly elevated pulmonary arterial pressure and pulmonary vascular resistance. Significantly elevated right ventricular end-diastolic pressure and right atrial pressure. Recommend continue diuresis for volume overload. Additional recommendations regarding elevated pulmonary vascular resistance per pulmonary medicine team. Past Anesthesia History No Family Hx of Anesthesia Complications and Other (Awareness with right JAMES, Slow to wake with previous back surgery) History of PONV No Hx of PONV and No Hx of Motion Sickness Social History Smoking Status: Former smoker tobacco type: cigarettes Do You Dip or Chew Tobacco: No Smoking End Date: quit 20 years ago (Hx 2.5-3 PPD) Hx Alcohol Use: No Hx Substance Use: No substance use type: does not use Review of Systems Patient denies chest pain, shortness of breath, dyspnea on exertion, fever, chills, cough, wheezing, palpitations. Physical Exam Vital Signs BP 111/72 P 71 TEMP 97.5 SP02 97%RA RESP 16 Physical Full cervical extension range of motion. Full TMJ range of motion. TMD 3 finger breaths Mallampati Score I Dentition: no lower teeth, several missing upper teeth Lungs: clear throughout to auscultation Cardiac: regular rate, irregular rhythm, no murmurs noted Spine: normal Carotid arteries: negative bruit Extremities: no LE edema Lab Results Anesthesia Preop Results Results Anesthesia Widget: WBC 8.02 K/ul (4.8-10.8) 09/29/23 Hgb 14.2 g/dl (14.0-18.0) 09/29/23 Hct 41.7 % (42.0-52.0) L 09/29/23 Plt 203 K/uL (130-400) 09/29/23 Na 142 mmol/L (136-145) 09/29/23 K 4.7 mmol/L (3.5-5.1) 09/29/23 Cl 102 mmol/L (98-107) 09/29/23 CO2 35 mmol/L (21-32) H 09/29/23 BUN 32 mg/dl (6-23) H 09/29/23 Creat 1.14 mg/dl (0.6-1.4) 09/29/23 Glucose Level 123 mg/dl (70-99(Fasting)) H 09/29/23 PT 17.7 Seconds (9.0-12.0) H 09/29/23 PTT 43 Seconds (21-31) H 09/29/23 INR 1.7 (0.9-1.1) H 09/29/23 HA1c 6.3 % (4.5-5.6) H 09/29/23 Blood Type A Positive 09/29/23 Antibody Screen NEGATIVE 09/29/23 Testing Laboratory Results *Elevated coags- patient taking Xarelto* Electrocardiogram Date: 09/29/23 A. fib with slow ventricular response at 55bpm. Chest X-Ray Date: 09/29/23 FINDINGS: PA and lateral chest radiographs are compared to study dated 04/23/2023 and correlated with chest CT dated 04/24/2023. The heart is enlarged noting atherosclerotic calcification of the thoracic aorta. The pulmonary vasculature is noncongested. Emphysema and chronic interstitial thickening is similar to previous. Calcified granulomas are again noted. Scarring/atelectasis is seen at the lung bases. There are trace pleural effusions. There is no pneumothorax. The skeletal structures are osteopenic. The bony thorax appears intact. Degenerative change and DISH is noted in the thoracic spine. IMPRESSION: Cardiomegaly and emphysema without radiographic evidence of congestive failure. Trace pleural effusions. Echocardiogram Date: 04/24/23 Reason for study: PHTN Limited study. EF 65-70%. Mild RVD. RV systolic function normal. Mild to moderate TR. RVSP 50- 60mmhg. Severe IVC dilation. Cardiac Catheterization RHC Date: 04/26/23 1. Significantly elevated pulmonary capillary wedge pressure. 2. Significantly elevated pulmonary arterial pressure and pulmonary vascular resistance 3. Significantly elevated right ventricular end-diastolic pressure and right atrial pressure 4. Recommend continue diuresis for volume overload. Additional recommendations regarding elevated pulmonary vascular resistance per pulmonary medicine team.
[~2023-10-11 08:41] MED LIST: BUPIVACAINE 0.25% PF 30 ML VIAL ONE; BUPIVACAINE 0.5 % 5 MG/1 ML PF 10ML VIAL ONE
--- NOTE | 2023-10-11 08:55 | History & Physical Bridge Note ---
Date of Service October 11, 2023 History & Physical Bridge Note I have examined the patient, reviewed the History & Physical and in the interval since the performance of the History & Physical I have noted the following changes of clinical significance: no changes noted
[2023-10-11] MEDS ORDERED: PROMETHAZINE HCL 6.25 MG in SODIUM CHLORIDE 0.9% 50 ML IV PRN (09:14)
[2023-10-11] MEDS ORDERED: ePHEDrine sulfate 50 MG/ML AMP IV PRN (09:14)
[2023-10-11] MEDS ORDERED: fentaNYL citrate PF 100 MCG/2 ML VIAL IV PRN (09:14)
[2023-10-11] MEDS ORDERED: ATROPINE SULFATE 0.1 MG/ML 10ML SYR IV PRN (09:14)
[2023-10-11] MEDS ORDERED: ONDANSETRON INJ 2 MG/ML 2 ML VIAL IV PRN ×2 (09:14→14:50)
[2023-10-11] MEDS: LR 15ML/HR IV SCH (09:30)
[2023-10-11] MEDS: ACETAMINOPHEN 500 MG TAB PO SCH ×2 (09:30→16:02)
[2023-10-11] MEDS: CeleBREX 200 MG CAP PO SCH (09:31)
[2023-10-11] MEDS: LR 60ML/HR IV SCH (09:31)
[2023-10-11] MEDS: METOCLOPRAMIDE HCL 10 MG TABLET PO SCH (09:31)
[2023-10-11] MEDS: FAMOTIDINE 20 MG TAB PO SCH (09:31)
[2023-10-11 09:48] LABS: INR 1.1 (0.9-1.1); Partial Thromboplastin Ratio 1.1; Partial Thromboplastin Time 29 Seconds (21-31); Prothrombin Time 11.9 Seconds (9.0-12.0)
[2023-10-11] MEDS ORDERED: MIDAZOLAM HCL 1 MG/ML 2ML VIAL ONE ×2 (09:59)
[2023-10-11] MEDS ORDERED: fentaNYL citrate PF 100 MCG/2 ML VIAL ONE (10:36)
[2023-10-11] MEDS ORDERED: LIDOCAINE 2% 2 ML VIAL/AMP(20MG/ML) INFIL ONE (11:03)
[2023-10-11] MEDS ORDERED: PROPOFOL IV EMULSION 10 MG/ML 20 ML VIAL IV ONE ×2 (11:03→11:48)
[2023-10-11] MEDS ORDERED: ONDANSETRON INJ 2 MG/ML 2 ML VIAL ONE (11:03)
[2023-10-11] MEDS: ceFAZolin 2000MG 2,000 MG/15 ML SYR IV SCH ×2 (11:24→18:38)
[2023-10-11] MEDS ORDERED: ePHEDrine sulfate 50 MG/5 ML SYR ONE (11:49)
[2023-10-11] MEDS: ROPIV 0.5% 246mg, Ketorolac 30mg, EPINEPHrine 0.5mg in NSS INFIL SCH (11:54)
[2023-10-11] MEDS ORDERED: PHENYLEPHRINE 100MCG/ML 10ML SYR IV ONE (12:05)
[2023-10-11] MEDS ORDERED: ePHEDrine sulfate 50 MG/ML AMP ONE (12:06)
[2023-10-11] MEDS: TRANEXAMIC ACID 1,000 MG **IV Intra-op IV SCH (12:22)
[2023-10-11] MEDS: VANCOMYCIN HCL 1000MG/20ML VIAL ONE (12:24)
[2023-10-11] MEDS: ORTHO JOINT ANESTHETIC ONE (12:24)
--- NOTE | 2023-10-11 13:29 | Operative Report ---
PG Post Operative Report Pre & Post Diagnosis Operation Date: 10/11/23 10:40 Pre-Op Diagnosis: Right Knee Degenerative Joint Disease Post-Op Diagnosis: Right Knee Degenerative Joint Disease I identified the patient and participated in the time-out.: Yes Procedure Operation Date: 10/11/23 10:40 Actual Procedures p Right Total Knee Arthroplasty(Right) - Yasir Beltran MD Surgeon Yasir Beltran MD Motor Patrol Operator Manuelito Ma PA-C Estimated Blood Loss 50 Findings Consistent with Post-Op Diagnosis Operative findings reveal advanced right knee lateral compartment DJD. He did have a full-thickness grade 4 [id number] disease of the lateral femoral condyle and lateral tibial plateau. He has slight valgus deformity to his knee. Rest of his knee looked pretty good. Had a moderate to large knee joint eff usion. Specimens Right knee sent for pathology. Anesthesia Type General Complications none Disposition Accompanied Patient To Recovery: No Indications The patient is a 67-year-old male along with a long history of orthopedic issues over the years. We replaced his right hip about 19 years ago. Over the past several years she has developed increased pain discomfort both knees right side for the working left. He was treated conservatively for years. Is this became less successful on his right knee. X-rays show advanced lateral compartment arthritis. He elected proceed with surgical management. Description of Procedure Operative implants consist of: 1 Biomet Vanguard size 75 right posterior stabilized femoral component. 2. Biomet size 79 tibial tray. 3. 12 mm posterior stabilized polyethylene insert. 4. 34 x 8 and half all poly patella. The patient was taken the operating, identified, placed on the operating table in the supine position but all contractors were appropriately padded. IV antibiotics provided by anesthesia team A general anesthetic was implemented by the anesthesia team. Right Tetrick was then placed to the right lower extremity was then prepped and draped in usual sterile fashion. The right leg was elevated and exsanguinated with use of an Esmarch and the tourniquet placed at 300 mmHg. An anterior approach to the right knee with warmth to longitudinal incision centered over the patella. Sharp dissection was carried through subcutaneous tissue down the extensor mechanism. A medial parapatellar arthrotomy incision was made. Some subperiosteal dissection was carried out medially. The fat pad was resected from his patella tendon. The lateral patellofemoral ligament was released. Patella subluxated laterally knee was flexed. The osteophytes taken on distal femur. The ACL and PCL were then released from the distal femur and the tibia subluxated anteriorly. The external treatment LYMErix then placed on the anterior face the tibia and adjusted 14 mm medially. Proximal tibial cut was made and take about 4 to 5 mm of bone from the medial side. The tibia was then sized to a size 79. Attention drawn the femur. The distal femur examined the sharp drill. Intramedullary canal was suction. The right which was 3 degrees of external rotation. The anterior cut, anterior chamfer, posterior cut, posterior chamfer cuts were made. The box cutting guide was placed and just slight lateral box cut was made. The knee was flexed. The remnants of the medial and lateral menisci were excised. The osteophytes taken off the posterior aspect the femur. A trial femoral component was placed. The tibial tray was pinned Dolores external rotation and the drill and stem placement. Defect in proximal tibia for the tibial tray. The knee was then trialed with the attention drawn the patella. The patella was cleaned of all soft tissue. Patella thickness measured 28 mm in thickness was cut down to 15. Was sized to a size 34 patella. The lug holes were drilled for a 34 patella. The lateral osteophyte was made. Patella button was placed. Knee was taken through range of motion patella tracked nicely with no thumbs. Attention drawn to place a permanent components. " Removed. Bone plug with this. Blood loss.The cement was mixed. I did add an additional gram of vancomycin to the cement. A Biomet Vanguard size 75 right posterior stabilized femoral component, size 79 tibial tray, a 12 mm posterior stabilized polyethylene insert, and a 34 x 8 and half all poly patella then cemented in place. Knee arthrotomy full extension till cement hardened. Final cement check was then performed. The pericapsular tissues were injected with a total of 100 cc of Ortho mix. The knee was then soaked in a Betadine soak for 5 minutes. Patient did receive 1 g tranexamic acid. The tourniquet was then let down for final tourniquet time of 56 minutes. Hemostasis assured to start with cautery. The wound was once again irrigated with coconuts of the irrigation. The extensor mechanism then closed with combination 1 PDS suture #1 Vicryl suture in a [id number] fashion. Extensor Meclomen checked found be intact and subcutaneous tissue then closed with 2 Dexon suture in a buried interrupted fashion skin was closed skin jesica. Leg was then cleaned and dried a sterile dressing with Xeroform, 4 fours, cast padding, Adebayo bandage were applied. The patient then brought out of general anesthesia and transferred to the recovery in stable condition. Patient tolerated procedure well and there were no complications. Manuelito Ma, my physician residential assistant, was present for the entire procedure. His assistance was essential and required for appropriate patient positioning, prepping and draping, surgical exposure, performing the technical details of the operation, placement the implants, closure of the wound, and placement of the sterile bandage. I attest to the content of the Intraoperative Record and any orders documented therein. Any exceptions are noted below.
--- NOTE | 2023-10-11 13:32 | XRay Report ---
TWO VIEWS RIGHT KNEE CLINICAL HISTORY: Postoperative examination. FINDINGS: AP and crosstable lateral portable views of the right knee are obtained. A right knee arthr oplasty is in near anatomic alignment. There has been undersurface remodeling of the patella. No acut e fracture is seen. There are expected postoperative changes around the knee including skin clips, so ft tissue edema, and subcutaneous gas. IMPRESSION: Expected postoperative changes status post right knee arthroplasty. No acute fracture is seen. ACT 112: Negative or not required by law. Electronically signed by: Nolan Danielson M.D. 10/11/2023 1:31 PM
--- NOTE | 2023-10-11 14:42 | Anesthesiology Progress Note ---
Date of Service October 11, 2023 Anesthesia Post Procedure Vital Signs Vital Signs: Temp Pulse Resp BP Pulse Ox O2 Del Method O2 Flow Rate 10/11/23 14:20 74 22 116/68 95 Nasal Cannula 2 10/11/23 14:05 36.3 C L 80 16 118/74 95 Nasal Cannula 2 10/11/23 13:55 81 12 112/73 93 Room Air 10/11/23 13:45 83 20 112/70 93 Room Air 10/11/23 13:35 93 H 18 114/75 93 Oxymask 3 10/11/23 13:25 93 H 13 105/68 99 Oxymask 3 10/11/23 13:15 36 C L 85 18 111/71 98 Oxymask 6 10/11/23 09:08 36.8 C 70 20 134/83 95 Room Air Pain Intensity Right Knee: Pain Intensity: 2 Transfer of Care Handoff Completed per policy Notes Mental Status: alert / awake / arousable Patient Amnestic to Procedure: Yes Nausea / Vomiting: adequately controlled Pain: adequately controlled Airway Patency, RR, SpO2: stable & adequate BP & HR: stable & adequate Hydration State: stable & adequate Anesthetic Complications: no major complications apparent
[2023-10-11] MEDS ORDERED: GLUCOSE 10 TAB/TUBE PO PRN (14:50)
[2023-10-11] MEDS ORDERED: NALOXONE HCL 0.4 MG/1 ML VIAL/CARP IV PRN (14:50)
[2023-10-11] MEDS ORDERED: GLUCAGON FOR INJ 1 MG VIAL SQ PRN (14:50)
[2023-10-11] MEDS ORDERED: MAGNESIUM HYDROXIDE SUSP 30 ML UDC PO PRN (14:50)
[2023-10-11] MEDS ORDERED: bisacodyL 10 MG SUPP PR PRN (14:50)
[2023-10-11] MEDS ORDERED: METOCLOPRAMIDE HCL INJ 5 MG/ML 2 ML VIAL IV PRN (14:50)
[2023-10-11] MEDS ORDERED: DEXTROSE 50% 50 ML SYRINGE IV PRN (14:50)
[2023-10-11] MEDS ORDERED: GLUCOSE 40% GEL 15 GM TUBE PO PRN (14:50)
[2023-10-11] MEDS ORDERED: HYDROmorphone INJ 0.5 MG/0.5 ML SYR IV PRN (14:50)
[2023-10-11] MEDS ORDERED: PHARMACY GLYCEMIC MGMT CONSULT PRN (14:50)
[2023-10-11] MEDS ORDERED: oxyCODONE HCL IR 5 MG TAB (IMMEDIATE RELEASE) PO PRN (14:50)
[2023-10-11] MEDS ORDERED: CARBOHYDRATES FOR HYPOGLYCEMIA PO PRN (14:50)
[2023-10-11] MEDS ORDERED: ALUMINUM/MAGNESIUM SUSP 30 ML UDC PO PRN (14:50)
[2023-10-11] MEDS ORDERED: ALBUTEROL HFA 8 GM INHALER INH PRN (15:11)
[2023-10-11] MEDS: KETOROLAC TROMETHAMINE 15 MG/ML VIAL IV SCH (16:02)
[2023-10-11] MEDS: INSULIN ASPART PER UNIT CHARGE SC SCH (16:50)
[2023-10-11] MEDS: ASCORBIC ACID 500 MG TAB PO SCH (16:50)
[2023-10-11] MEDS: SODIUM CHLORIDE 0.9% 1,000 ML IV SCH (17:17)
[2023-10-11] MEDS: TRANEXAMIC ACID / 0.7% NACL 1,000 MG/100 ML BAG IV SCH (18:38)
[2023-10-11] MEDS: allopurinoL 300 MG TAB PO SCH (22:02)
[2023-10-11] MEDS: DOCUSATE SODIUM 100 MG CAP PO SCH (22:03)
[2023-10-11] MEDS: ATORVASTATIN 10 MG TAB PO SCH (22:03)
[2023-10-11] MEDS: SENNA 8.6 MG TAB PO SCH ×2 (22:04→22:05)
[2023-10-11] MEDS: METOPROLOL TARTRATE 100 MG TAB PO SCH (22:04)
[2023-10-12 05:57] LABS: Hematocrit (blood only) 37.2 % (42.0-52.0); Hemoglobin 12.5 g/dl (14.0-18.0); Mean Corpuscular Hemoglobin 31.6 pg (25.0-34.0); Mean Corpuscular Hgb Conc 33.6 g/dL (32.0-36.0); Mean Corpuscular Volume 93.9 fL (80.0-100.0); Mean Platelet Volume 12.2 fL (9.4-12.4); Platelet Count 181 K/uL (130-400); RDW Coefficient of Variation 17.7 % (11.5-14.5); RDW Standard Deviation 61.4 fL (36.4-46.3); Red Blood Count 3.96 M/uL (4.70-6.10)
[2023-10-12 06:12] LABS: BUN Creatinine Ratio 21.9 (10-20); Calcium 9.4 mg/dl (8.6-10.3); Creatinine Clr Calc Pharmacy 64.2 ml/min; Est GFR (African American) 56.1 ml/min; Est GFR (Non-African American) 48.4 ml/min; Potassium 4.2 mmol/L (3.5-5.1)
[2023-10-12] MEDS: FUROSEMIDE 80 MG TAB PO SCH (07:49)
[2023-10-12] MEDS: EMPAGLIFLOZIN 10 MG TAB PO SCH (07:49)
[2023-10-12] MEDS: MULTIVITAMIN TAB PO SCH (07:49)
[2023-10-12] MEDS: TAMSULOSIN HCL 0.4 MG CAP PO SCH (07:50)
[2023-10-12] MEDS: dilTIAZem HCL 180 MG CAPCR PO SCH (07:50)
[2023-10-12] MEDS: lisinopril 5 MG TAB PO SCH (07:51)
[2023-10-12] MEDS: dexAMETHasone 10 MG in SYRINGE 0 ML IV SCH (07:53)
[2023-10-12] MEDS: UMECLIDINIUM/VILANTEROL 62.5/25MCG 7 PUFFS/INHALER INH SCH (08:01)
[2023-10-12] MEDS: FLUTICASONE FUROATE 100MCG 14 PUFFS/INHALER INH SCH (08:02)
--- NOTE | 2023-10-12 10:25 | Orthopedic Progress Note ---
Date of Service October 12, 2023 Assessment & Plan (1) Status post right knee replacement: Plan: 67-year-old gentleman with multiple medical comorbidities now postop day 1 from right knee replacement doing pretty well. Pains controlled. He is done well in therapy. He is just open to go to [facility] to rehab for a while. Plan: 1. DVT prophylaxis including Thiede teds, SCDs, back on his Eliquis. Will start him on a prophylactic dose. Will go back to a therapeutic dose on discharge. 2. PT/OT. Weight-bear as tolerated. Right total knee protocol. 3. Pain control doing okay with current pain regimen. 4. Disposition. He is open to go to [facility] for rehab. Just waiting for bed availability and make sure approval line is set. Admission and Anticipated Discharge Date Admission Date: October 11, 2023 Subjective 67-year-old gentleman with multiple medical comorbidities now postop day 1 from a right knee replacement. He is doing quite well. His pain is controlled. Therapy went pretty well this morning. He is hoping to go to [facility]. Denies any chest pain or shortness of breath. Physical Exam Physical Exam: Physical examination reveals a pleasant elderly male. He was walk around his room with a walker this morning quite well. Examination of the right knee reveals a dressing clean dry and intact he can dorsiflex and plantarflex his foot appropriately. He is neurologically intact. Respiratory: normal respiratory effort, lungs clear to auscultation Cardiovascular: RRR, no murmur, no edema Gastrointestinal (Abdomen): normal bowel sounds, soft, nontender, no hepatosplenomegaly Results & Data Vital Signs (Past 12 Hours) Vital Signs Temp Pulse Resp BP Pulse Ox O2 Del Method 10/12/23 07:33 36.4 C L 79 18 119/79 95 Room Air 10/12/23 04:06 36.6 C 65 16 106/65 94 Room Air 10/11/23 23:30 36.4 C L 80 17 112/68 94 Room Air Laboratory Results Hemoglobin is 12.5. Hematocrit is 37.2. Creatinine slightly elevated at 1.46.
--- NOTE | 2023-10-12 13:25 | Pharmacy Report ---
Pharmacy Glycemic Short Note 2 - Date of Service October 12, 2023 - Glycemic Short BSG Results (Last 24 hours): 10/11/23 10/11/23 10/11/23 13:24 16:35 20:37 Glucose POC Glucose 111 H 113 H 135 H 10/12/23 10/12/23 10/12/23 05:33 07:33 11:30 Glucose 108 H POC Glucose 95 92 OUTPATIENT ANTIDIABETIC REGIMEN: * metformin 500 mg PO BIDM * empagliflozin 10 mg PO daily HbA1c: 6.3% (09/29/23) ASSESSMENT: * SR is a 67 year old male POD #1 s/p right total knee arthroplasty * No steroids in OR * Ordered dexamethasone 10 mg IV x 1 this morning (10/12/23) * Jardiance continued on admission, will continue * Likely loosen Novolog parameters tomorrow when steroids wear off PLAN FOR INPATIENT GLYCEMIC CONTROL: * Hold metformin, continue empagliflozin * Basal insulin * Hold at this time * Bolus insulin * NovoLog per scale ACHS or Q6hrs while NPO * Goal Range: Low 110 mg/dL - High 140 mg/dL * Correction Factor: 25 mg/dL/unit * Nutritional / Prandial insulin per carb ratio of 1 unit per 9 grams CHO consumed
[2023-10-12] MEDS: RIVAROXABAN 10 MG TABLET PO SCH (14:07)
[2023-10-13 07:02] VITALS: RESP 18
--- NOTE | 2023-10-13 13:36 | Orthopedic Progress Note ---
Date of Service October 13, 2023 Assessment & Plan (1) Status post right knee replacement: Plan: 67-year-old gentleman now postop day 2 from a right total knee replacement doing pretty well. Pains controlled. He is neurologically intact. Really just waiting for placement. Plan: 1. DVT prophylaxis including thigh-high teds, SCDs, back on his normal anticoagulation. 2. PT/OT. He can weight-bear as tolerated. Right total knee protocol. 3. Pain control doing well with current pain regimen. 4. Disposition. He is open to go to [facility]. We are just waiting for bed availability. (2) Hx of congestive heart failure: (3) Chronic atrial fibrillation: (4) COPD (chronic obstructive pulmonary disease): Admission and Anticipated Discharge Date Admission Date: October 11, 2023 Subjective 67-year-old gentleman now postop day 2 from a total knee replacement. He is doing pretty well. Therapy is going okay. Pain is very well-controlled. He just really waiting for placement. He wants to go to [facility]. No chest pain or shortness of breath. Not feeling dizzy or lightheaded. Physical Exam Physical Exam: Physical examination was a pleasant elderly male. He is walking around the room using a walker this morning or I visited him. Examination of the knee reveals the dressing be clean dry and intact. He can do a straight leg raise. There is just a trace bit of drainage superiorly. Can dorsiflex and plantarflex his foot appropriately. Results & Data Vital Signs (Past 12 Hours) Vital Signs Temp Pulse Resp BP Pulse Ox O2 Del Method 10/13/23 07:01 36.6 C 93 H 18 137/75 96 Room Air
[2023-10-13 14:19] VITALS: BP 115/69; PULSE 95; TEMP 97.3; O2SAT 95
== END 2023-10-13 16:02 | DRG 470 ==
LOC: ASU 08:41 → EDBD 10:40 → MERGE 10:40 → 3E 13:17

== ENCOUNTER 2024-09-07 17:39 | Inpatient (IN) ==
--- NOTE | 2024-09-07 20:00 | Emergency Department Note ---
ED Provider Note History of Present Illness Chief Complaint: Leg Injury/Pain Stated Complaint: PAIN IN RT LEG - FROM HIP TO BELOW KNEE Time Seen by Provider: 09/07/24 19:38 68-year-old male who presents to the emergency department with his and daughter (who also provides history of the patient's current status) for evaluation of right hip pain for the past few weeks, now radiating into his knee. The patient reports that his pain has worsened over the past few days. The patient has a prior history of right hip and knee replacement performed by Dr. Beltran in 2004 and 2023, respectively. The patient denies any recent slips, trips or falls. He does report a history of back surgery as well, but denies any back pain. The patient denies any tingling or numbness of the right lower extremity. When asked about activity levels, the reports that all he does is sit on a recliner with a remote. The patient rates his discomfort a 10 out of 10. Home Medications Medication Instructions Recorded Confirmed Type albuterol sulfate 90 mcg/actuation 2 inh inhalation Q4H PRN shortness 03/18/23 09/07/24 Rx breath activated powder inhaler of breath or wheezing #1 ea oxygen #2 ea 04/28/23 08/22/24 Rx acetaminophen 500 mg tablet 1,000 mg (2 x 500 mg) PO TID pain 10/08/23 09/07/24 Rx (Tylenol Extra Strength) 30 days #180 tabs diltiazem HCl 180 mg 180 mg PO DAILY #90 caps 03/12/24 09/07/24 Rx capsule,extended release 24 hr empagliflozin 10 mg tablet 10 mg PO QAM #30 tabs 03/12/24 09/07/24 Rx (Jardiance) fluticasone fur. 100 mcg-umeclid 1 inh inhalation DAILY #60 ea 03/12/24 09/07/24 Rx 62.5 mcg-vilant 25 mcg inhalat.powder (Trelegy Ellipta) metformin 500 mg tablet 500 mg PO BID #180 tabs 03/12/24 09/07/24 Rx rivaroxaban 20 mg tablet (Xarelto) 20 mg PO DAILY #30 tabs 03/12/24 09/07/24 Rx allopurinol 300 mg tablet 300 mg PO BID #180 tabs 04/11/24 09/07/24 Rx atorvastatin 10 mg tablet 10 mg PO QPM #90 tabs 04/11/24 09/07/24 Rx furosemide 80 mg tablet 80 mg PO DAILY #180 tabs 04/11/24 09/07/24 Rx metoprolol tartrate 100 mg tablet 100 mg PO BID #180 tabs 04/11/24 09/07/24 Rx blood sugar diagnostic (OneTouch #100 ea 06/07/24 08/22/24 Rx Ultra Test strips) lancets #100 ea 06/07/24 08/22/24 Rx lisinopril 5 mg tablet 5 mg PO DAILY #90 tabs 06/07/24 09/07/24 Rx diclofenac sodium 1 % topical gel 4 g topical QID PRN pain #200 grams 08/22/24 09/07/24 Rx duloxetine 60 mg capsule,delayed 60 mg PO DAILY #90 caps 08/22/24 09/07/24 Rx release Allergies Allergy/AdvReac Type Severity Reaction Status Date / Time dicyclomine [From Bentyl] Allergy Unknown CAN'T Verified 09/07/24 20:37 REMEMBER Past Med/Surg History Problem List (Updated 09/07/24 @ 21:29 by Oz Callahan) Periprosthetic fracture around internal prosthetic right hip joint (Acute) Peripheral neuropathy Pulmonary hypertension Diastolic heart failure (Chronic) (HFpEF) heart failure with preserved ejection fraction Type 2 diabetes mellitus (Acute) Status post right knee replacement (Acute) Hx of congestive heart failure Chronic atrial fibrillation (Acute) Taking Xarelto COPD (chronic obstructive pulmonary disease) Elevated bilirubin Right knee DJD Benign essential hypertension (Chronic) Chronic obstructive pulmonary disease (Chronic) Gout (Chronic) Hypercholesterolemia (Chronic) Medical History Encounter for pre-operative examination History of cor pulmonale Other secondary pulmonary hypertension Echo/RHC 04/2023 Type II/III Follows with [facility] pulm. Per visit 04/2023, "Predominantly he has pulmonary hypertension is postcapillary due to diastolic heart failure. Treatment of this syndrome is maintaining an adequate volume status." Lumbar spinal stenosis DJD (degenerative joint disease) Hx of diabetic foot ulcer Hx of left foot ulcer "resolved" per patient- no active infection/ulcer Monitored/following with [facility] for ankle and foot care Venous insufficiency Osteoarthritis Diabetes Hyperlipidemia HTN (hypertension) Hx of gout History of COVID-19 (01/2023) Hospitalized x 3 days at [facility] (obstructive sleep apnea) BIPAP (compliant) Surgical History Hx of total knee replacement 10/11/23 History of lumbar fusion (2008) Hx of cardiac catheterization (04/26/23) RHC- Significantly elevated pulmonary capillary wedge pressure. Significantly elevated pulmonary arterial pressure and pulmonary vascular resistance. Significantly elevated right ventricular end-diastolic pressure and right atrial pressure. Recommend continue diuresis for volume overload. Additional recommendations regarding elevated pulmonary vascular resistance per pulmonary medicine team. H/O total hip arthroplasty Right History of vasectomy Family History Mother Coronary heart disease Hypertension Diabetes Denies family history of Ovarian cancer Prostate cancer Myocardial infarction Breast cancer Colorectal cancer Social History Smoking Status: Never smoker Tobacco Type: Cigarettes Age Started Using Tobacco: 10; Age Quit Using Tobacco: 48; packs per day: 2.5; Second Hand Exposure: Yes (hx); Do You Dip or Chew Tobacco: No; Hx Alcohol Use: No Hx Substance Use: No Preferred Language: Irish Communication Ability: Effective Visual Impairment: No Limitations Information Systems Audit Manager Required: No Beliefs That Will Affect Care: None marital status: Current Living Situation: Spouse Current Living Situation Comment: current occupational status: disabled Feels Safe at Home: Yes Childhood Exposure to Second-Hand Smoke: Yes Diet: DASH caffeine: Yes Seatbelt Use: always Sunscreen Use: No Assistive Devices: Cane, Crutches and Walker Physical Exam Vital Signs Vital Signs - 24 hr 09/07/24 18:03 09/07/24 19:42 09/07/24 20:30 Temperature 36.3 C L Temperature Source Temporal Artery Scan Pulse Rate 70 64 Pulse Rate [Right Finger] 72 Pulse Rhythm [Right Finger] Regular Pulse Strength [Right Finger] Normal Respiratory Rate 18 20 Respiratory Effort / Characteristics Non-Labored Spontaneous Non-Labored Spontaneous Respiratory Depth Normal Normal Respiratory Pattern Regular Regular Blood Pressure 120/71 Blood Pressure [Right Arm] 134/81 Blood Pressure Mean 87 Blood Pressure Mean [Right Arm] 98 Blood Pressure Position [Right Arm] Lying Pulse Oximetry 97 96 Oxygen Delivery Method Room Air Room Air Sepsis Recent Fever Within 48 Hours No Sepsis New/Unexplained Change in Mental Status N/A Sepsis Action Taken by Nursing No Action Required CONSTITUTIONAL: Healthy and well nourished. Patient does not appear in any acute distress. HEENT: Normocephalic, atraumatic. NECK: Full active range of motion without discomfort. LYMPHATICS: No cervical chain adenopathy. RESPIRATORY: Clear to auscultation bilaterally with no wheezing, crackles, rhonchi or stridor. CARDIOVASCULAR: Regular rate and rhythm with no murmurs, rubs or gallops. GASTROINTESTINAL: Bowel sounds present in all quadrants. MUSCULOSKELETAL: Examination shows mild discomfort with logroll of the right hip. No focal tenderness to palpation about the right knee, and no knee joint effusion appreciated. No soft tissue edema, ecchymosis or erythema noted about the right hip or knee region. Pedal pulses are intact. INTEGUMENTARY: No rash or other significant dermatologic conditions noted. HEMATOLOGIC: No ecchymosis or petechiae. PSYCHIATRIC: Positive affect. NEUROLOGIC: Right lower extremity is sensory intact. Course Course Patient history and physical exam were performed. Nursing notes were reviewed. Vital signs were reviewed. X-rays had already been ordered and taken prior to my examination of the patient. Review of right hip and pelvis x-ray shows a periprosthetic fracture of the right hip. X-rays of the right knee does not show any joint effusion or other concerns with the knee prosthesis or surrounding bone. Findings were discussed with the patient. I then reached out to Dr. August, orthopedic surgeon on-call who recommended hospitalist admission, and he will evaluate the patient, as well as reach out to Dr. Beltran. The case was then discussed with the [facility] hospitalist service for admission. Please see hospitalist and orthopedic dictations for further treatment and final disposition. The case was also discussed with Dr. Fofana, ED attending physician, who agrees with workup and admission planning. Additional preoperative labs were ordered in case the patient does need operative management. These labs were reviewed without any concerning findings. A portable chest x-ray did not show any pneumonia or pneumothorax. An ECG showed atrial fibrillation without ST elevation or ischemic changes. Administered Medications Allopurinol (Allopurinol 300 Mg Tab) 300 mg PO BID IVETH Stop: 10/07/24 22:04 Last Admin: 09/07/24 22:32 Dose: Not Given Documented By: GALLO Atorvastatin Calcium (Atorvastatin 10 Mg Tab) 10 mg PO QPM IVETH Stop: 10/07/24 22:04 Last Admin: 09/07/24 22:32 Dose: Not Given Documented By: GALLO Insulin Aspart (Insulin Aspart Per Unit Charge) 0 units SC Q6 IVETH Stop: 10/07/24 22:59 Last Admin: 09/07/24 22:50 Dose: Not Given Documented By: GALLO Metoprolol Tartrate (Metoprolol Tartrate 100 Mg Tab) 100 mg PO BID IVETH Stop: 10/07/24 22:04 Last Admin: 09/07/24 22:32 Dose: Not Given Documented By: GALLO Medical Decision Making Medical Records Attestation: I reviewed the patient's medical records. Home Medications was personally reviewed by me Laboratory Data Attestation: I reviewed the patient's lab results. 09/07/24 20:31 09/07/24 20:31 Lab Results 09/07/24 Range/Units 20:31 WBC 10.85 H (4.8-10.8) K/ul RBC 4.22 L (4.70-6.10) M/uL Hgb 13.6 L (14.0-18.0) g/dl Hct 41.1 L (42.0-52.0) % MCV 97.4 (80.0-100.0) fL MCH 32.2 (25.0-34.0) pg MCHC 33.1 (32.0-36.0) g/dL RDW Std Deviation 63.2 H (36.4-46.3) fL RDW Coeff of Marce 17.6 H (11.5-14.5) % Plt Count 219 (130-400) K/uL MPV 10.6 (9.4-12.4) fL Immature Gran % (Auto) 0.3 % Neut % (Auto) 73.9 % Lymph % (Auto) 13.6 % Troup % (Auto) 9.9 % Eos % (Auto) 1.8 % Baso % (Auto) 0.5 % Neut # (Auto) 8.03 H (1.40-6.50) K/uL Lymph # (Auto) 1.48 (1.20-3.40) K/uL Troup # (Auto) 1.07 H (0.11-0.59) K/uL Eos # (Auto) 0.19 (0.00-0.50) K/uL Baso # (Auto) 0.05 (0.00-0.20) K/uL Immature Gran # (Auto) 0.03 (0.01-0.20) K/uL PT 13.9 H (9.0-12.0) Seconds INR 1.3 H (0.9-1.1) APTT 38 H (21-31) Seconds PTT Ratio 1.4 Sodium 142 (136-145) mmol/L Potassium 3.6 (3.5-5.1) mmol/L Chloride 101 (98-107) mmol/L Carbon Dioxide 34 H (21-32) mmol/L Anion Gap 7 (3-11) BUN 33 H (6-23) mg/dl Creatinine 1.26 (0.6-1.4) mg/dl Est Cr Clr Drug Dosing 72.0 ml/min eGFR 61.36 BUN/Creatinine Ratio 26.2 H (10-20) Glucose 105 H (70-99(Fasting)) mg/dl Calcium 9.7 (8.6-10.3) mg/dl Total Bilirubin 0.9 (0.2-1.0) mg/dl AST 18 (13-39) U/L ALT 14 (7-52) U/L Alkaline Phosphatase 165 H (34-104) U/L Total Protein 7.8 (6.0-8.3) gm/dl Albumin 4.2 (3.4-5.0) gm/dl Globulin 3.6 (2.5-4.0) gm/dl Albumin/Globulin Ratio 1.2 (0.9-2) Imaging Data Attestation: I personally reviewed and interpreted this imaging study as follows: My Impression: My interpretation of right hip x-rays with a pelvic view shows a nondisplaced periprosthetic hip fracture. No prosthesis toggling appreciated. My interpretation of right knee x-ray shows knee prosthesis without any fractures or dislocation. My interpretation of the portable chest x-ray does not show pneumonia or pneumothorax. Radiologist reports were also reviewed with concurrence. Radiologist's Impression: Hip/Pelvis X-Ray 09/07/24 18:09 EXAM: XR hip RT 2V w pelvis CLINICAL HISTORY: hip pain. TECHNIQUE: X-ray images of the right hip joint and pelvis in AP and lateral projection. COMPARISON: No prior studies available for comparison. FINDINGS: Hip Joints: Evidence of right-sided total hip replacement. No evidence of prosthesis loosening, break, or chronic osteomyelitis. A radiolucent line is noted at the proximal end of the femur at the inferior part of the trochanters in the AP view. Sacroiliac joints appear normal and unremarkable. No evidence of sacroiliitis or significant degenerative changes. Symphysis Pubis: Symphysis pubis is normal and intact. No evidence of separation or widening. Soft Tissues: Visualized soft tissues are normal and unremarkable. No soft tissue swelling, calcifications, or masses. Additional Findings: Lumbar spinal fixation. IMPRESSION: 1. Evidence of right-sided total hip replacement. 2. No evidence of prosthesis loosening, break, or chronic osteomyelitis. 3. A radiolucent line is noted at the proximal end of the femur at the inferior part of the trochanters. Suspected non displaced fracture. Correlate clinically with point of tenderness and follow up suggested Disclaimer: A subtle bone abnormality or fracture may not be readily apparent on X-rays; thus, clinical correlation and further imaging, including follow-up CT, MRI, or follow-up X-ray, are advised as needed. Electronically signed by Fidel Everett 09-07-2024 8:12 PM Knee X-Ray 09/07/24 18:09 EXAM: XR knee RT 3V CLINICAL HISTORY: Knee pain TECHNIQUE: X-ray images of the right knee were obtained in anteroposterior (AP), lateral, and sunrise/skyline (patellar) projections. COMPARISON: 11/24/2023 CR FINDINGS: Bone Structure and joints: Evidence of total knee replacement. Hardware is intact. No evidence of loosening or radiographic signs of active osseous infection. Diffuse osteopenia. Patella: Patella is normal in position and alignment. No evidence of patellar dislocation or subluxation. Soft Tissues: No soft tissue swelling, calcifications, or foreign bodies noted. Additional Findings: No lytic or sclerotci lesions. There is a small trace of suprapatellar joint effusion. IMPRESSION: 1. Evidence of total knee replacement with no related complications. Unchanged. 2. No acute osseous abnormality. 3. Diffuse osteopenia. Stable. 4. Small joint effusion, significant interval regression. Disclaimer: A subtle bone abnormality or fracture may not be readily apparent on X-rays, thus clinical correlation and further imaging including follow-up CT, MRI, or follow-up X-rays are advised as needed. Electronically signed by Fidel Everett 09-07-2024 8:18 PM Chest X-Ray 09/07/24 20:15 Exam(s): XR CXR 1 VIEW EXAM: XR Chest, 1 View CLINICAL HISTORY: R hip fx. TECHNIQUE: Frontal view of the chest. COMPARISON: Chest two views dated 09/29/2023 FINDINGS: Lungs: No focal airspace consolidation. No radiographic evidence for florid CHF. The prominent hilar structures are stable and presumed vascular. Stable calcified granuloma in the right mid lung zone. Pleural space: Unremarkable. No pneumothorax. No large pleural effusion. Heart: Cardiomegaly appears more prominent, presumed accentuated by portable AP technique. Mediastinum: No significant abnormality identified. The trachea is midline. Bones/joints: Unremarkable. No acute fracture. Upper abdomen: Similar asymmetrically elevated right hemidiaphragm. IMPRESSION: No acute cardiopulmonary process or significant alteration from the prior examination. Electronically signed by: J Carlos Farrell MD 09/07/24 23:05 PM ECG Data Attestation: I personally reviewed and interpreted this ECG as follows: Indication: + other (Preop) Rate (beats per minute): 65 Rhythm: + atrial fibrillation ECG Intervals/blocks: + Normal QRS ECG ST segments: + Normal ST segments Comparison ECG Date: from (09/29/2023) Change: no significant change MDM Narrative See ED Course section for further details of today's visit. The patient essentially presents to the emergency department with nontraumatic right hip and knee pain for the past few months, worsening over the past few days. X-rays today does show a nondisplaced periprosthetic hip fracture. The case was discussed with Dr. August, orthopedic surgeon on-call, who did recommend admission, and he would discuss the case further with Dr. Beltran. The case was discussed with the [facility] Hospitalist service, who will do the admission. The case was also discussed with Dr. Fofana, ED attending physician, who agrees with workup and admission planning. Impression Periprosthetic fracture around internal prosthetic right hip joint, Chronic atrial fibrillation, Status post right knee replacement, Type 2 diabetes mellitus Discharge Plan Visit Data Chief Complaint: Leg Injury/Pain Stated Complaint: PAIN IN RT LEG - FROM HIP TO BELOW KNEE ED Provider: Joshua Fofana ED Midlevel Provider: Oz Callahan Discharge Problem: Periprosthetic fracture around internal prosthetic right hip joint, Chronic atrial fibrillation, Status post right knee replacement, Type 2 diabetes mellitus Patient Disposition: Admitted As Inpatient Condition: Fair Discharge Instructions Interventions: ED Discharge Assessment Last Done: 09/07/24 21:40 ED DC CONDITION Conditon at Discharge Condition at Discharge: Fair Discharge Problem: Periprosthetic fracture around internal prosthetic right hip joint Qualifiers: Encounter type: initial encounter Qualified Code(s): M97.01XA - Periprosthetic fracture around internal prosthetic right hip joint, initial encounter
--- NOTE | 2024-09-07 20:12 | XRay Report ---
EXAM: XR hip RT 2V w pelvis CLINICAL HISTORY: hip pain. TECHNIQUE: X-ray images of the right hip joint and pelvis in AP and lateral projection. COMPARISON: No prior studies available for comparison. FINDINGS: Hip Joints: Evidence of right-sided total hip replacement. No evidence of prosthesis loosening, break, or chronic osteomyelitis. A radiolucent line is noted at the proximal end of the femur at the inferior part of the trochanters in the AP view. Sacroiliac joints appear normal and unremarkable. No evidence of sacroiliitis or significant degenerative changes. Symphysis Pubis: Symphysis pubis is normal and intact. No evidence of separation or widening. Soft Tissues: Visualized soft tissues are normal and unremarkable. No soft tissue swelling, calcifications, or masses. Additional Findings: Lumbar spinal fixation. IMPRESSION: 1. Evidence of right-sided total hip replacement. 2. No evidence of prosthesis loosening, break, or chronic osteomyelitis. 3. A radiolucent line is noted at the proximal end of the femur at the inferior part of the trochanters. Suspected non displaced fracture. Correlate clinically with point of tenderness and follow up suggested Disclaimer: A subtle bone abnormality or fracture may not be readily apparent on X-rays; thus, clinical correlation and further imaging, including follow-up CT, MRI, or follow-up X-ray, are advised as needed. Electronically signed by Fidel Everett 09-07-2024 8:12 PM
--- NOTE | 2024-09-07 20:18 | XRay Report ---
EXAM: XR knee RT 3V CLINICAL HISTORY: Knee pain TECHNIQUE: X-ray images of the right knee were obtained in anteroposterior (AP), lateral, and sunrise/skyline (patellar) projections. COMPARISON: 11/24/2023 CR FINDINGS: Bone Structure and joints: Evidence of total knee replacement. Hardware is intact. No evidence of loosening or radiographic signs of active osseous infection. Diffuse osteopenia. Patella: Patella is normal in position and alignment. No evidence of patellar dislocation or subluxation. Soft Tissues: No soft tissue swelling, calcifications, or foreign bodies noted. Additional Findings: No lytic or sclerotci lesions. There is a small trace of suprapatellar joint effusion. IMPRESSION: 1. Evidence of total knee replacement with no related complications. Unchanged. 2. No acute osseous abnormality. 3. Diffuse osteopenia. Stable. 4. Small joint effusion, significant interval regression. Disclaimer: A subtle bone abnormality or fracture may not be readily apparent on X-rays, thus clinical correlation and further imaging including follow-up CT, MRI, or follow-up X-rays are advised as needed. Electronically signed by Fidel Everett 09-07-2024 8:18 PM
--- NOTE | 2024-09-07 20:24 | Emergency Department Note ---
ED Visit Note I was consulted by the Advanced Practice Provider. I personally made or approved the management plan for the patient. I performed a substantive portion of the visit. This includes the aspects of: MDM. .
[2024-09-07 20:42] LABS: Hematocrit (blood only) 41.1 % (42.0-52.0); Hemoglobin 13.6 g/dl (14.0-18.0); Immature Granulocytes # (auto) 0.03 K/uL (0.01-0.20); Immature Granulocytes % (auto) 0.3 %; Mean Corpuscular Hemoglobin 32.2 pg (25.0-34.0); Mean Corpuscular Volume 97.4 fL (80.0-100.0); Platelet Count 219 K/uL (130-400); RDW Standard Deviation 63.2 fL (36.4-46.3); Red Blood Count 4.22 M/uL (4.70-6.10); White Blood Count 10.85 K/ul (4.8-10.8)
--- NOTE | 2024-09-07 20:51 | History & Physical Report ---
Date of Service September 07, 2024 Assessment & Plan (1) Periprosthetic fracture around internal prosthetic right hip joint: (2) (HFpEF) heart failure with preserved ejection fraction: (3) Type 2 diabetes mellitus: (4) Status post right knee replacement: (5) Chronic atrial fibrillation: Plan This is a 68 year old male with a PMH of HFpEF, A. fib on Xarelto, DM2, HTN, pulmonary HTN, COPD, R JAMES about 20 years prior and R TKA in 2023; coming in with R hip pain; concern for acute R proximal femur fracture Acute Periprosthetic Femur Fracture - patient with R JAMES in 2004 - now coming in with pain for the past month - x-rays suggest subtle radiolucent line that could be a small R proximal femur fracture - ortho consulted, may need further imaging - PRN morphine - defer decision for therapy until after otho sees him HFpEF - cont Jardiance, cont Lasix - cont metoprolol and Lisinopril - no acute exacerbation Chronic A. fib - cont metoprolol, diltiazem - cont Xarelto DM2 - hold oral agents - correctional scale insulin ordered - accuchecks AC+HS History of Present Illness Chief Complaint: R Hip Pain Primary Care Provider: Nolan Soria MD This is a 68 year old male with a PMH of HFpEF, A. fib on Xarelto, DM2, HTN, pulmonary HTN, COPD, R JAMES about 20 years prior and R TKA in 2023; coming in with R hip pain. Patient actually has had pain for the past few months especially with ambulation, but the pain has worsened. On arrival here, R Knee and Hip x-rays done and concerning for non-displaced fracture at the proximal end of the femur. Ortho was consulted and at this point unsure if surgery is needed. Dr. Beltran performed previous surgery and will see patient. Allergies Allergy/AdvReac Type Severity Reaction Status Date / Time dicyclomine [From Bentyl] Allergy Unknown CAN'T Verified 09/07/24 20:37 REMEMBER Home Medications Medication Instructions Recorded Confirmed Type albuterol sulfate 90 mcg/actuation 2 inh inhalation Q4H PRN shortness 03/18/23 09/07/24 Rx breath activated powder inhaler of breath or wheezing #1 ea oxygen #2 ea 04/28/23 08/22/24 Rx acetaminophen 500 mg tablet 1,000 mg (2 x 500 mg) PO TID pain 10/08/23 09/07/24 Rx (Tylenol Extra Strength) 30 days #180 tabs diltiazem HCl 180 mg 180 mg PO DAILY #90 caps 03/12/24 09/07/24 Rx capsule,extended release 24 hr empagliflozin 10 mg tablet 10 mg PO QAM #30 tabs 03/12/24 09/07/24 Rx (Jardiance) fluticasone fur. 100 mcg-umeclid 1 inh inhalation DAILY #60 ea 03/12/24 09/07/24 Rx 62.5 mcg-vilant 25 mcg inhalat.powder (Trelegy Ellipta) metformin 500 mg tablet 500 mg PO BID #180 tabs 03/12/24 09/07/24 Rx rivaroxaban 20 mg tablet (Xarelto) 20 mg PO DAILY #30 tabs 03/12/24 09/07/24 Rx allopurinol 300 mg tablet 300 mg PO BID #180 tabs 04/11/24 09/07/24 Rx atorvastatin 10 mg tablet 10 mg PO QPM #90 tabs 04/11/24 09/07/24 Rx furosemide 80 mg tablet 80 mg PO DAILY #180 tabs 04/11/24 09/07/24 Rx metoprolol tartrate 100 mg tablet 100 mg PO BID #180 tabs 04/11/24 09/07/24 Rx blood sugar diagnostic (OneTouch #100 ea 06/07/24 08/22/24 Rx Ultra Test strips) lancets #100 ea 06/07/24 08/22/24 Rx lisinopril 5 mg tablet 5 mg PO DAILY #90 tabs 06/07/24 09/07/24 Rx diclofenac sodium 1 % topical gel 4 g topical QID PRN pain #200 grams 08/22/24 09/07/24 Rx duloxetine 60 mg capsule,delayed 60 mg PO DAILY #90 caps 08/22/24 09/07/24 Rx release Past Med/Surg History Problem List (Updated 09/07/24 @ 20:32 by Oz Callahan) Periprosthetic fracture around internal prosthetic right hip joint (Acute) Peripheral neuropathy Pulmonary hypertension Diastolic heart failure (Chronic) (HFpEF) heart failure with preserved ejection fraction Type 2 diabetes mellitus Status post right knee replacement Hx of congestive heart failure Chronic atrial fibrillation Taking Xarelto COPD (chronic obstructive pulmonary disease) Elevated bilirubin Right knee DJD Benign essential hypertension (Chronic) Chronic obstructive pulmonary disease (Chronic) Gout (Chronic) Hypercholesterolemia (Chronic) Medical History Encounter for pre-operative examination History of cor pulmonale Other secondary pulmonary hypertension Echo/RHC 04/2023 Type II/III Follows with [facility] pulm. Per visit 04/2023, "Predominantly he has pulmonary hypertension is postcapillary due to diastolic heart failure. Treatment of this syndrome is maintaining an adequate volume status." Lumbar spinal stenosis DJD (degenerative joint disease) Hx of diabetic foot ulcer Hx of left foot ulcer "resolved" per patient- no active infection/ulcer Monitored/following with [facility] for ankle and foot care Venous insufficiency Osteoarthritis Diabetes Hyperlipidemia HTN (hypertension) Hx of gout History of COVID-19 (01/2023) Hospitalized x 3 days at [facility] (obstructive sleep apnea) BIPAP (compliant) Surgical History Hx of total knee replacement 10/11/23 History of lumbar fusion (2008) Hx of cardiac catheterization (04/26/23) RHC- Significantly elevated pulmonary capillary wedge pressure. Significantly elevated pulmonary arterial pressure and pulmonary vascular resistance. Significantly elevated right ventricular end-diastolic pressure and right atrial pressure. Recommend continue diuresis for volume overload. Additional recommendations regarding elevated pulmonary vascular resistance per pulmonary medicine team. H/O total hip arthroplasty Right History of vasectomy Family History Mother Coronary heart disease Hypertension Diabetes Denies family history of Ovarian cancer Prostate cancer Myocardial infarction Breast cancer Colorectal cancer Social History Smoking Status: Never smoker Tobacco Type: Cigarettes Age Started Using Tobacco: 10; Age Quit Using Tobacco: 48; packs per day: 2.5; Second Hand Exposure: Yes (hx); Do You Dip or Chew Tobacco: No; Hx Alcohol Use: No Hx Substance Use: No Preferred Language: Maltese Communication Ability: Effective Visual Impairment: No Limitations Incident Response Specialist Required: No Beliefs That Will Affect Care: None marital status: Current Living Situation: Spouse Current Living Situation Comment: current occupational status: disabled Feels Safe at Home: Yes Childhood Exposure to Second-Hand Smoke: Yes Diet: DASH caffeine: Yes Seatbelt Use: always Sunscreen Use: No Assistive Devices: Cane, Crutches and Walker Review of Systems Review of Systems: Constitutional: No Weight Change, No Fever, No Chills, No Night Sweats, No Fatigue, No Malaise ENT/Mouth: No Hearing Changes, No Ear Pain, No Nasal Congestion, No Sinus Pain, No Hoarseness, No sore throat, No Rhinorrhea, No Swallowing Difficulty Eyes: No Eye Pain, No Swelling, No Redness, No Foreign Body, No Discharge, No Vision Changes Cardiovascular: No Chest Pain, No SOB, No PND, No Dyspnea on Exertion, No Orthopnea, No Claudication, No Edema, No Palpitations Respiratory: No Cough, No Sputum, No Wheezing, No Smoke Exposure, No Dyspnea Gastrointestinal: No Nausea, No Vomiting, No Diarrhea, No Constipation, No Pain, No Heartburn, No Anorexia, No Dysphagia, No Hematochezia, No Melena, No Flatulence, No Jaundice Genitourinary: No Dysmenorrhea, No DUB, No Dyspareunia, No Dysuria, No Urinary Frequency, No Hematuria, No Urinary Incontinence, No Urgency, No Flank Pain, No Urinary Flow Changes, No Hesitancy Musculoskeletal: No Arthralgias, No Myalgias, No Joint Swelling, No Joint Stiffness, No Back Pain, No Neck Pain, No Injury History Skin: No Skin Lesions, No Pruritis, No Hair Changes, No Breast/Skin Changes, No Nipple Discharge Neuro: No Weakness, No Numbness, No Paresthesias, No Loss of Consciousness, No Syncope, No Dizziness, No Headache, No Coordination Changes, No Recent Falls Psych: No Anxiety/Panic, No Depression, No Insomnia, No Personality Changes, No Delusions, No Rumination, No SI/HI/AH/VH, No Social Issues, No Memory Changes, No Violence/Abuse Hx., No Eating Concerns Heme/Lymph: No Bruising, No Bleeding, No Transfusions History, No Lymphadenopathy Endocrine: No Polyuria, No Polydipsia, No Temperature Intolerance Physical Exam Physical Exam: VITALS: Reviewed. WEIGHT/BMI reviewed. GEN: Healthy appearing, well-developed, NAD. PSYCH: Good Judgment. AOx3. Normal memory, mood, and affect. HEENT -Head: NC/AT; -Eyes: PERRL, EOMI. No discharge or redn ess; -Ears: External ears are normal. Normal TMs. -Nose: Normal nares. -Mouth and throat: MMM. Normal gums, muc aisha, palate,. Good dentition. NECK: Supple, with no masses. CV: irregularly irregular; normal rate LUNGS: CTAB, no w/r/c. ABD: Soft, NT/ND, NBS, no masses or organomegaly. : N/A SKIN: Warm, well perfused. No skin rashes or abnormal lesions. MSK: +tenderness and decreased ROM of the R hip/knee EXT: No clubbing, cyanosis, or edema. NEURO: Ambulating with no limitations. Normal muscle strength and tone. No focal deficits. Results & Data Results & Data Vital Signs (Past 12 Hours) Vital Signs Temp Pulse Pulse Resp BP BP Pulse Ox 09/07/24 20:30 64 09/07/24 19:42 72 20 134/81 96 09/07/24 18:03 36.3 C L 70 18 120/71 97 O2 Del Method 09/07/24 20:30 09/07/24 19:42 Room Air 09/07/24 18:03 Room Air Laboratory Results 09/07/24 20:31 WBC 10.85 H RBC 4.22 L Hgb 13.6 L Hct 41.1 L MCV 97.4 MCH 32.2 MCHC 33.1 RDW Std Deviation 63.2 H RDW Coeff of Marce 17.6 H Plt Count 219 MPV 10.6 Immature Gran % (Auto) 0.3 Neut % (Auto) 73.9 Lymph % (Auto) 13.6 Sutter % (Auto) 9.9 Eos % (Auto) 1.8 Baso % (Auto) 0.5 Neut # (Auto) 8.03 H Lymph # (Auto) 1.48 Sutter # (Auto) 1.07 H Eos # (Auto) 0.19 Baso # (Auto) 0.05 Immature Gran # (Auto) 0.03 Diagnostic Findings Hip/Pelvis X-Ray 09/07/24 18:09 EXAM: XR hip RT 2V w pelvis CLINICAL HISTORY: hip pain. TECHNIQUE: X-ray images of the right hip joint and pelvis in AP and lateral projection. COMPARISON: No prior studies available for comparison. FINDINGS: Hip Joints: Evidence of right-sided total hip replacement. No evidence of prosthesis loosening, break, or chronic osteomyelitis. A radiolucent line is noted at the proximal end of the femur at the inferior part of the trochanters in the AP view. Sacroiliac joints appear normal and unremarkable. No evidence of sacroiliitis or significant degenerative changes. Symphysis Pubis: Symphysis pubis is normal and intact. No evidence of separation or widening. Soft Tissues: Visualized soft tissues are normal and unremarkable. No soft tissue swelling, calcifications, or masses. Additional Findings: Lumbar spinal fixation. IMPRESSION: 1. Evidence of right-sided total hip replacement. 2. No evidence of prosthesis loosening, break, or chronic osteomyelitis. 3. A radiolucent line is noted at the proximal end of the femur at the inferior part of the trochanters. Suspected non displaced fracture. Correlate clinically with point of tenderness and follow up suggested Disclaimer: A subtle bone abnormality or fracture may not be readily apparent on X-rays; thus, clinical correlation and further imaging, including follow-up CT, MRI, or follow-up X-ray, are advised as needed. Electronically signed by Fidel Everett 09-07-2024 8:12 PM Knee X-Ray 09/07/24 18:09 EXAM: XR knee RT 3V CLINICAL HISTORY: Knee pain TECHNIQUE: X-ray images of the right knee were obtained in anteroposterior (AP), lateral, and sunrise/skyline (patellar) projections. COMPARISON: 11/24/2023 CR FINDINGS: Bone Structure and joints: Evidence of total knee replacement. Hardware is intact. No evidence of loosening or radiographic signs of active osseous infection. Diffuse osteopenia. Patella: Patella is normal in position and alignment. No evidence of patellar dislocation or subluxation. Soft Tissues: No soft tissue swelling, calcifications, or foreign bodies noted. Additional Findings: No lytic or sclerotci lesions. There is a small trace of suprapatellar joint effusion. IMPRESSION: 1. Evidence of total knee replacement with no related complications. Unchanged. 2. No acute osseous abnormality. 3. Diffuse osteopenia. Stable. 4. Small joint effusion, significant interval regression. Disclaimer: A subtle bone abnormality or fracture may not be readily apparent on X-rays, thus clinical correlation and further imaging including follow-up CT, MRI, or follow-up X-rays are advised as needed. Electronically signed by Fidel Everett 09-07-2024 8:18 PM Code Status & VTE Plan VTE Prophylaxis Plan VTE Prophylaxis will be ordered: Yes PG Care Time/CCT Total # of Minutes Spent Total Time Spent with Patient: Total time spent is greater than 50% in coordination of care (as documented) at patient's floor/unit and/or counseling patient: Coding Level of Care Code 89189 INT INP/OBS CARE 2/55MIN Diagnoses Periprosthetic fracture around internal prosthetic right hip joint M97.01XA Encounter type: initial encounter (HFpEF) heart failure with preserved ejection fraction I50.30 Type 2 diabetes mellitus E11.9 Status post right knee replacement Z96.651 Chronic atrial fibrillation I48.20 (1) Periprosthetic fracture around internal prosthetic right hip joint Encounter type: initial encounter Qualified Code(s): M97.01XA - Periprosthetic fracture around internal prosthetic right hip joint, initial encounter
[2024-09-07 20:58] LABS: Alanine Aminotransferase 14.0 U/L (7-52); Albumin Globulin Ratio 1.2 (0.9-2); Alkaline Phosphatase 165.0 U/L (34-104); Anion Gap 7.0 (3-11); Bilirubin,Total 0.9 mg/dl (0.2-1.0); Blood Urea Nitrogen 33.0 mg/dl (6-23); Calcium 9.7 mg/dl (8.6-10.3); Carbon Dioxide 34.0 mmol/L (21-32); Chloride 101.0 mmol/L (98-107); Creatinine Clr Calc Pharmacy 72.0 ml/min; Globulin 3.6 gm/dl (2.5-4.0); Glucose 105.0 mg/dl (70-99(Fasting)); Potassium 3.6 mmol/L (3.5-5.1); Sodium 142.0 mmol/L (136-145); Total Protein 7.8 gm/dl (6.0-8.3)
[2024-09-07 21:15] LABS: INR 1.3 (0.9-1.1); Partial Thromboplastin Time 38 Seconds (21-31); Prothrombin Time 13.9 Seconds (9.0-12.0)
[2024-09-07] MEDS ORDERED: ONDANSETRON INJ 2 MG/ML 2 ML VIAL IV PRN (22:05)
[2024-09-07] MEDS ORDERED: CARBOHYDRATES FOR HYPOGLYCEMIA PO PRN (22:05)
[2024-09-07] MEDS ORDERED: MoRPHine SULFATE 2 MG/ML CARP IV PRN (22:05)
[2024-09-07] MEDS ORDERED: GLUCOSE 10 TAB/TUBE PO PRN (22:05)
[2024-09-07] MEDS ORDERED: GLUCAGON FOR INJ 1 MG VIAL SQ PRN (22:05)
[2024-09-07] MEDS ORDERED: DEXTROSE 50% 50 ML SYRINGE IV PRN (22:05)
[2024-09-07] MEDS ORDERED: MELATONIN 3 MG TAB PO PRN (22:05)
[2024-09-07] MEDS ORDERED: GLUCOSE 40% GEL 15 GM TUBE PO PRN (22:05)
[2024-09-07] MEDS ORDERED: POLYETHYLENE (MIRALAX) 17 GM PACK PO PRN (22:05)
[2024-09-07] MEDS ORDERED: ALBUTEROL HFA 8 GM INHALER INH PRN (22:25)
[2024-09-07] MEDS: ATORVASTATIN 10 MG TAB PO SCH (22:32)
[2024-09-07] MEDS: METOPROLOL TARTRATE 100 MG TAB PO SCH (22:32)
[2024-09-07] MEDS: INSULIN ASPART PER UNIT CHARGE SC SCH (22:50)
[2024-09-07 22:59] LABS: Appearance Urine Clear (Clear); Glucose Urine UA 1+ (Negative)
--- NOTE | 2024-09-07 23:05 | XRay Report ---
Exam(s): XR CXR 1 VIEW EXAM: XR Chest, 1 View CLINICAL HISTORY: R hip fx. TECHNIQUE: Frontal view of the chest. COMPARISON: Chest two views dated 09/29/2023 FINDINGS: Lungs: No focal airspace consolidation. No radiographic evidence for florid CHF. The prominent hilar structures are stable and presumed vascular. Stable calcified granuloma in the right mid lung zone. Pleural space: Unremarkable. No pneumothorax. No large pleural effusion. Heart: Cardiomegaly appears more prominent, presumed accentuated by portable AP technique. Mediastinum: No significant abnormality identified. The trachea is midline. Bones/joints: Unremarkable. No acute fracture. Upper abdomen: Similar asymmetrically elevated right hemidiaphragm. IMPRESSION: No acute cardiopulmonary process or significant alteration from the prior examination. Electronically signed by: J Carlos Farrell MD 09/07/24 23:05 PM
--- NOTE | 2024-09-08 08:50 | Orthopedic Consultation ---
Date of Consultation September 08, 2024 Assessment & Plan (1) Periprosthetic fracture around internal prosthetic right hip joint: IMPRESSION: Right hip non-displaced greater trochanteric eloisa-prosthetic femur fracture. PLAN: PWB RLE max 50% with walker May resume diet, no plan for surgical intervention at this time. Continue pain control DVT prophylaxis: Teds, foot pumps/SCDs, Continue Xeralto PT/OT D/C planning Continue care per primary service. Will follow while in hospital. F/U with Dr. Beltran after d/c Present on Admission?: Yes History of Present Illness Reason for Consultation: R hip pain Requesting Physician: Dr. Beltran, Dr. August on-call covering Attending Physician: Rafiq Ozuna MD History of Present Illness This is a 68 year old male with a ground level fall a couple of months ago and gradual worsening right hip and leg pain. Pain was so severe yesterday that he came to the ED. H/O R JAMES about 20 years prior and R TKA in 2023. Also significant lumbar surgery. PMH A. fib on Xarelto, DM2, HTN, pulmonary HTN, COPD. Radiographs obtained in the ED, concern for acute R proximal hip periprosthetic fracture and I was consulted for further evaluation and treatment. Allergies Allergy/AdvReac Type Severity Reaction Status Date / Time dicyclomine [From Bentyl] Allergy Unknown CAN'T Verified 09/07/24 20:37 REMEMBER Home Medications Medication Instructions Recorded Confirmed Type albuterol sulfate 90 mcg/actuation 2 inh inhalation Q4H PRN shortness 03/18/23 09/07/24 Rx breath activated powder inhaler of breath or wheezing #1 ea oxygen #2 ea 04/28/23 08/22/24 Rx acetaminophen 500 mg tablet 1,000 mg (2 x 500 mg) PO TID pain 10/08/23 09/07/24 Rx (Tylenol Extra Strength) 30 days #180 tabs diltiazem HCl 180 mg 180 mg PO DAILY #90 caps 03/12/24 09/07/24 Rx capsule,extended release 24 hr empagliflozin 10 mg tablet 10 mg PO QAM #30 tabs 03/12/24 09/07/24 Rx (Jardiance) fluticasone fur. 100 mcg-umeclid 1 inh inhalation DAILY #60 ea 03/12/24 09/07/24 Rx 62.5 mcg-vilant 25 mcg inhalat.powder (Trelegy Ellipta) metformin 500 mg tablet 500 mg PO BID #180 tabs 03/12/24 09/07/24 Rx rivaroxaban 20 mg tablet (Xarelto) 20 mg PO DAILY #30 tabs 03/12/24 09/07/24 Rx allopurinol 300 mg tablet 300 mg PO BID #180 tabs 04/11/24 09/07/24 Rx atorvastatin 10 mg tablet 10 mg PO QPM #90 tabs 04/11/24 09/07/24 Rx furosemide 80 mg tablet 80 mg PO DAILY #180 tabs 04/11/24 09/07/24 Rx metoprolol tartrate 100 mg tablet 100 mg PO BID #180 tabs 04/11/24 09/07/24 Rx blood sugar diagnostic (OneTouch #100 ea 06/07/24 08/22/24 Rx Ultra Test strips) lancets #100 ea 06/07/24 08/22/24 Rx lisinopril 5 mg tablet 5 mg PO DAILY #90 tabs 06/07/24 09/07/24 Rx diclofenac sodium 1 % topical gel 4 g topical QID PRN pain #200 grams 08/22/24 09/07/24 Rx duloxetine 60 mg capsule,delayed 60 mg PO DAILY #90 caps 08/22/24 09/07/24 Rx release Patient History Medical History Encounter for pre-operative examination History of cor pulmonale Other secondary pulmonary hypertension Echo/RHC 04/2023 Type II/III Follows with [facility] [place] pulm. Per visit 04/2023, "Predominantly he has pulmonary hypertension is postcapillary due to diastolic heart failure. Treatment of this syndrome is maintaining an adequate volume status." Lumbar spinal stenosis DJD (degenerative joint disease) Hx of diabetic foot ulcer Hx of left foot ulcer "resolved" per patient- no active infection/ulcer Monitored/following with [facility] for ankle and foot care Venous insufficiency Osteoarthritis Diabetes Hyperlipidemia HTN (hypertension) Hx of gout History of COVID-19 (01/2023) Hospitalized x 3 days at [facility] (obstructive sleep apnea) BIPAP (compliant) Surgical History Hx of total knee replacement 10/11/23 History of lumbar fusion (2008) Hx of cardiac catheterization (04/26/23) RHC- Significantly elevated pulmonary capillary wedge pressure. Significantly elevated pulmonary arterial pressure and pulmonary vascular resistance. Significantly elevated right ventricular end-diastolic pressure and right atrial pressure. Recommend continue diuresis for volume overload. Additional recommendations regarding elevated pulmonary vascular resistance per pulmonary medicine team. 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 BCR < 2 sec. Able to preform straight leg raise. Actively flex and extend the hip/knee. Incisions well healed, no evidence of infection. Hip ROM: FF 100 deg; Abduction 35 deg, Adduction 10 deg; ER 40 deg; IR 5 deg Mild TTP lateral aspect of the hip. No swelling/bruising Results & Data Vital Signs (Past 12 Hours) Vital Signs Temp Pulse Resp BP Pulse Ox O2 Del Method 09/08/24 08:06 Room Air 09/08/24 07:36 36.9 C 84 17 136/76 93 Room Air 09/07/24 22:20 Room Air 09/07/24 22:20 36.4 C L 67 16 149/83 H 91 Room Air 09/07/24 21:30 66 20 142/81 H 92 Room Air 09/07/24 21:00 75 20 141/82 H 96 Room Air Laboratory Results Laboratory Results WBC 10.85 K/ul (4.8-10.8) H 09/07/24 20: RBC 4.22 M/uL (4.70-6.10) L 09/07/24 20: Hgb 13.6 g/dl (14.0-18.0) L 09/07/24 20: Hct 41.1 % (42.0-52.0) L 09/07/24: MCV 97.4 fL (80.0-100.0) 09/07/24 20: MCH 32.2 pg (25.0-34.0) 09/07/24: MCHC 33.1 g/dL (32.0-36.0) 09/07/24: RDW Std Deviation 63.2 fL (36.4-46.3) H 09/07/24: RDW Coeff of Marce 17.6 % (11.5-14.5) H 09/07/24: Plt Count 219 K/uL (130-400) 09/07/24: MPV 10.6 fL (9.4-12.4) 09/07/24: Immature Gran % (Auto) 0.3 % 09/07/24: Neut % (Auto) 73.9 % 09/07/24: Lymph % (Auto) 13.6 % 09/07/24: [place] % (Auto) 9.9 % 09/07/24: Eos % (Auto) 1.8 % 09/07/24: Baso % (Auto) 0.5 % 09/07/24: Neut # (Auto) 8.03 K/uL (1.40-6.50) H 09/07/24 20: Lymph # (Auto) 1.48 K/uL (1.20-3.40) 09/07/24: [place] # (Auto) 1.07 K/uL (0.11-0.59) H 09/07/24 20: Eos # (Auto) 0.19 K/uL (0.00-0.50) 09/07/24 20: Baso # (Auto) 0.05 K/uL (0.00-0.20) 09/07/24 20:31 Immature Gran # (Auto) 0.03 K/uL (0.01-0.20) 09/07/24 20:31 PT 13.9 Seconds (9.0-12.0) H 09/07/24 20:31 INR 1.3 (0.9-1.1) H 09/07/24 20:31 APTT 38 Seconds (21-31) H 09/07/24 20: PTT Ratio 1.4 09/07/24 20: Sodium 142 mmol/L (136-145) 09/07/24 20: Potassium 3.6 mmol/L (3.5-5.1) 09/07/24 20: Chloride 101 mmol/L (98-107) 09/07/24 20: Carbon Dioxide 34 mmol/L (21-32) H 09/07/24 20:31 Anion Gap 7 (3-11) 09/07/24: BUN 33 mg/dl (6-23) H 09/07/24 20: Creatinine 1.26 mg/dl (0.6-1.4) 09/07/24 20: Est Cr Clr Drug Dosing 72.0 ml/min 09/07/24 20: eGFR 61.36 09/07/24 20: BUN/Creatinine Ratio 26.2 (10-20) H 09/07/24 20:31 Glucose 105 mg/dl (70-99(Fasting)) H 09/07/24 20: POC Glucose 90 mg/dl (70-99) 09/08/24 05:52 Calcium 9.7 mg/dl (8.6-10.3) 09/07/24 20: Total Bilirubin 0.9 mg/dl (0.2-1.0) 09/07/24 20:31 AST 18 U/L (13-39) 09/07/24 20:31 ALT 14 U/L (7-52) 09/07/24 20:31 Alkaline Phosphatase 165 U/L (34-104) H 09/07/24 20:31 Total Protein 7.8 gm/dl (6.0-8.3) 09/07/24 20: Albumin 4.2 gm/dl (3.4-5.0) 09/07/24 20:31 Globulin 3.6 gm/dl (2.5-4.0) 09/07/24 20: Albumin/Globulin Ratio 1.2 (0.9-2) 09/07/24 20:31 Urine Color Yellow 09/07/24 22:47 Urine Appearance Clear (Clear) 09/07/24 22:47 Urine pH 8.0 (4.5-7.5) H 09/07/24 22:47 Ur Specific [place] 1.008 (1.000-1.030) 09/07/24 22:47 Urine Protein Negative (Negative) 09/07/24 22:47 Urine Glucose (UA) 1+ (Negative) H 09/07/24 22:47 Urine Ketones Negative (Negative) 09/07/24 22: Urine Blood Negative (Negative) 09/07/24 22: Urine Nitrite Negative (Negative) 09/07/24 22:47 Urine Bilirubin Negative (Negative) 09/07/24 22:47 Urine Urobilinogen Negative (Negative) 09/07/24: Ur Leukocyte Esterase Negative (Negative) 09/07/24 22:47 Urine Comment 09/07/24 22:47 Diagnostic Findings Impressions Hip/Pelvis X-Ray 09/07/24 18:09 EXAM: XR hip RT 2V w pelvis CLINICAL HISTORY: hip pain. TECHNIQUE: X-ray images of the right hip joint and pelvis in AP and lateral projection. COMPARISON: No prior studies available for comparison. FINDINGS: Hip Joints: Evidence of right-sided total hip replacement. No evidence of prosthesis loosening, break, or chronic osteomyelitis. A radiolucent line is noted at the proximal end of the femur at the inferior part of the trochanters in the AP view. Sacroiliac joints appear normal and unremarkable. No evidence of sacroiliitis or significant degenerative changes. Symphysis Pubis: Symphysis pubis is normal and intact. No evidence of separation or widening. Soft Tissues: Visualized soft tissues are normal and unremarkable. No soft tissue swelling, calcifications, or masses. Additional Findings: Lumbar spinal fixation. IMPRESSION: 1. Evidence of right-sided total hip replacement. 2. No evidence of prosthesis loosening, break, or chronic osteomyelitis. 3. A radiolucent line is noted at the proximal end of the femur at the inferior part of the trochanters. Suspected non displaced fracture. Correlate clinically with point of tenderness and follow up suggested Disclaimer: A subtle bone abnormality or fracture may not be readily apparent on X-rays; thus, clinical correlation and further imaging, including follow-up CT, MRI, or follow-up X-ray, are advised as needed. Electronically signed by Fidel Everett 09-07-2024 8:12 PM Knee X-Ray 09/07/24 18:09 EXAM: XR knee RT 3V CLINICAL HISTORY: Knee pain TECHNIQUE: X-ray images of the right knee were obtained in anteroposterior (AP), lateral, and sunrise/skyline (patellar) projections. COMPARISON: 11/24/2023 CR FINDINGS: Bone Structure and joints: Evidence of total knee replacement. Hardware is intact. No evidence of loosening or radiographic signs of active osseous infection. Diffuse osteopenia. Patella: Patella is normal in position and alignment. No evidence of patellar dislocation or subluxation. Soft Tissues: No soft tissue swelling, calcifications, or foreign bodies noted. Additional Findings: No lytic or sclerotci lesions. There is a small trace of suprapatellar joint effusion. IMPRESSION: 1. Evidence of total knee replacement with no related complications. Unchanged. 2. No acute osseous abnormality. 3. Diffuse osteopenia. Stable. 4. Small joint effusion, significant interval regression. Disclaimer: A subtle bone abnormality or fracture may not be readily apparent on X-rays, thus clinical correlation and further imaging including follow-up CT, MRI, or follow-up X-rays are advised as needed. Electronically signed by Fidel Everett 09-07-2024 8:18 PM Chest X-Ray 09/07/24 20:15 Exam(s): XR CXR 1 VIEW EXAM: XR Chest, 1 View CLINICAL HISTORY: R hip fx. TECHNIQUE: Frontal view of the chest. COMPARISON: Chest two views dated 09/29/2023 FINDINGS: Lungs: No focal airspace consolidation. No radiographic evidence for florid CHF. The prominent hilar structures are stable and presumed vascular. Stable calcified granuloma in the right mid lung zone. Pleural space: Unremarkable. No pneumothorax. No large pleural effusion. Heart: Cardiomegaly appears more prominent, presumed accentuated by portable AP technique. Mediastinum: No significant abnormality identified. The trachea is midline. Bones/joints: Unremarkable. No acute fracture. Upper abdomen: Similar asymmetrically elevated right hemidiaphragm. IMPRESSION: No acute cardiopulmonary process or significant alteration from the prior examination. Electronically signed by: J Carlos Farrell MD 09/07/24 23:05 PM (1) Periprosthetic fracture around internal prosthetic right hip joint Encounter type: initial encounter Qualified Code(s): M97.01XA - Periprosthetic fracture around internal prosthetic right hip joint, initial encounter
[2024-09-08] MEDS: RIVAROXABAN 20 MG TAB PO SCH (09:18)
[2024-09-08] MEDS: EMPAGLIFLOZIN 10 MG TAB PO SCH (09:20)
[2024-09-08] MEDS: FUROSEMIDE 80 MG TAB PO SCH (09:21)
[2024-09-08] MEDS: UMECLIDINIUM/VILANTEROL 62.5/25MCG 7 PUFFS/INHALER INH SCH (09:21)
[2024-09-08] MEDS: FLUTICASONE FUROATE 100MCG 14 PUFFS/INHALER INH SCH (09:21)
--- NOTE | 2024-09-08 11:36 | Hospitalist Progress Note ---
Date of Service September 08, 2024 Assessment & Plan (1) Periprosthetic fracture around internal prosthetic right hip joint: Plan: -ortho evaluation appreciated -no surgical intervention needed -pain control -PT/OT (2) (HFpEF) heart failure with preserved ejection fraction: Plan: - cont Jardiance, cont Lasix - cont metoprolol and Lisinopril - no acute exacerbation (3) Type 2 diabetes mellitus: Plan: - correctional scale insulin ordered - accuchecks AC+HS (4) Status post right knee replacement: (5) Chronic atrial fibrillation: Plan: - cont metoprolol, diltiazem - cont Xarelto Plan This is a 68 year old male with a PMH of HFpEF, A. fib on Xarelto, DM2, HTN, pulmonary HTN, COPD, R JAMES about 20 years prior and R TKA in 2023; coming in with R hip pain; concern for acute R proximal femur fracture Admission and Anticipated Discharge Date Admission Date: September 07, 2024 Subjective No events overnight. Pt resting comfortably in bed. Review of Systems Review of Systems: CONST: Negative for fever, body aches and chills. HENT: Negative for neck pain/stiffness, headache, congestion, sore throat, swelling. EYES: Negative for discharge/pain or vision changes. RESP: Negative for cough/hemoptysis and shortness of breath. CV: Negative chest pain, difficulty breathing, palpitations. ABD: Negative pain, nausea, vomiting. : Negative increase frequency, dysuria, blood in urine or stool. MUSC: Negative for muscle aches, edema. SKIN: Negative rash, lesions/sores. NEURO: Negative headache, dizziness, weakness. Physical Exam Physical Exam: GENERAL APPEARANCE NAD, activity normal for age, well developed/ well nourished, no cyanosis, pallor, or diaphoresis. EYES lids/conjunctiva normal. EARS/NOSE/THROAT Mucous membranes moist, nares normal, lips/teeth normal uvula midline without oral pharyngeal erythema, exudate or swelling TMs normal bilaterally. No lymphangitis/lymphedema. HEAD/NECK normocephalic atraumatic, no facial trauma, neck is supple. RESPIRATORY respiratory effort normal, speaks in full sentences, no tripod position, no accessory muscle use. Lungs clear to auscultation without rhonchi, wheezes, rales CARDIAC Regular rate and rhythm, no edema. ABDOMINAL Soft, ND/NT. No evidence of fluid wave. No pulsatile masses on exam, rebound tenderness, Del Castillo sign or pain over Mcburney's point. MUSCLES/EXTREMITIES No abnormal range of motion, no swelling. SKIN Warm, pink and dry. No rashes, dermatoses, petechiae or lesions. NEUROLOGICAL Speech is clear and appropriate. Normal level of consciousness. Gait and coordination are normal. 5/5 strength in all extremities. PSYCH Normal mood and affect. Judgement/competence is appropriate Results & Data Results & Data Vital Signs (Past 12 Hours) Vital Signs Temp Pulse Resp BP Pulse Ox O2 Del Method 09/08/24 08:06 Room Air 09/08/24 07:36 36.9 C 84 17 136/76 93 Room Air PG Care Time/CCT Total # of Minutes Spent Total Time Spent with Patient: Total time spent is greater than 50% in coordination of care (as documented) at patient's floor/unit and/or counseling patient: Coding Level of Care Code 51411 SUB INP/OBS CARE 2/35MIN Diagnoses Periprosthetic fracture around internal prosthetic right hip joint M97.01XA Encounter type: initial encounter (HFpEF) heart failure with preserved ejection fraction I50.30 Type 2 diabetes mellitus E11.9 Status post right knee replacement Z96.651 Chronic atrial fibrillation I48.20 (1) Periprosthetic fracture around internal prosthetic right hip joint Encounter type: initial encounter Qualified Code(s): M97.01XA - Periprosthetic fracture around internal prosthetic right hip joint, initial encounter
[2024-09-08] MEDS ORDERED: Nursing to Pharmacy Communication SCH (19:15)
[2024-09-08] MEDS: INSULIN ASPART PER UNIT CHARGE SC SCH (20:53)
[2024-09-09 07:19] VITALS: RESP 16
[2024-09-09] MEDS: ACETAMINOPHEN 325 MG TAB PO PRN (08:30)
--- NOTE | 2024-09-09 11:35 | Hospitalist Progress Note ---
Date of Service September 09, 2024 Assessment & Plan (1) Periprosthetic fracture around internal prosthetic right hip joint: Plan: -ortho evaluation appreciated -no surgical intervention needed -pain control -PT/OT pending -ortho recommending RLE max 50% with walker -d/c planning once disposition determined by PT (2) (HFpEF) heart failure with preserved ejection fraction: Plan: - cont Jardiance, cont Lasix - cont metoprolol and Lisinopril - no acute exacerbation (3) Type 2 diabetes mellitus: Plan: - correctional scale insulin ordered - accuchecks AC+HS (4) Status post right knee replacement: (5) Chronic atrial fibrillation: Plan: - cont metoprolol, diltiazem - cont Xarelto Plan This is a 68 year old male with a PMH of HFpEF, A. fib on Xarelto, DM2, HTN, pulmonary HTN, COPD, R JAMES about 20 years prior and R TKA in 2023; coming in with R hip pain; concern for acute R proximal femur fracture Admission and Anticipated Discharge Date Admission Date: September 07, 2024 Subjective No events overnight. Pt resting comfortably in bed. Review of Systems Review of Systems: CONST: Negative for fever, body aches and chills. HENT: Negative for neck pain/stiffness, headache, congestion, sore throat, swelling. EYES: Negative for discharge/pain or vision changes. RESP: Negative for cough/hemoptysis and shortness of breath. CV: Negative chest pain, difficulty breathing, palpitations. ABD: Negative pain, nausea, vomiting. : Negative increase frequency, dysuria, blood in urine or stool. MUSC: Negative for muscle aches, edema. SKIN: Negative rash, lesions/sores. NEURO: Negative headache, dizziness, weakness. Physical Exam Physical Exam: GENERAL APPEARANCE NAD, activity normal for age, well developed/ well nourished, no cyanosis, pallor, or diaphoresis. EYES lids/conjunctiva normal. EARS/NOSE/THROAT Mucous membranes moist, nares normal, lips/teeth normal uvula midline without oral pharyngeal erythema, exudate or swelling TMs normal bilaterally. No lymphangitis/lymphedema. HEAD/NECK normocephalic atraumatic, no facial trauma, neck is supple. RESPIRATORY respiratory effort normal, speaks in full sentences, no tripod position, no accessory muscle use. Lungs clear to auscultation without rhonchi, wheezes, rales CARDIAC Regular rate and rhythm, no edema. ABDOMINAL Soft, ND/NT. No evidence of fluid wave. No pulsatile masses on exam, rebound tenderness, Del Castillo sign or pain over Mcburney's point. MUSCLES/EXTREMITIES No abnormal range of motion, no swelling. SKIN Warm, pink and dry. No rashes, dermatoses, petechiae or lesions. NEUROLOGICAL Speech is clear and appropriate. Normal level of consciousness. Gait and coordination are normal. 5/5 strength in all extremities. PSYCH Normal mood and affect. Judgement/competence is appropriate Results & Data Results & Data Vital Signs (Past 12 Hours) Vital Signs Temp Pulse Resp BP Pulse Ox O2 Del Method 09/09/24 07:25 Room Air 09/09/24 07:18 36.4 C L 82 16 139/86 93 Room Air PG Care Time/CCT Total # of Minutes Spent Total Time Spent with Patient: Total time spent is greater than 50% in coordination of care (as documented) at patient's floor/unit and/or counseling patient: Coding Level of Care Code 79991 SUB INP/OBS CARE 2/35MIN Diagnoses Periprosthetic fracture around internal prosthetic right hip joint M97.01XA Encounter type: initial encounter (HFpEF) heart failure with preserved ejection fraction I50.30 Type 2 diabetes mellitus E11.9 Status post right knee replacement Z96.651 Chronic atrial fibrillation I48.20 (1) Periprosthetic fracture around internal prosthetic right hip joint Encounter type: initial encounter Qualified Code(s): M97.01XA - Periprosthetic fracture around internal prosthetic right hip joint, initial encounter
--- NOTE | 2024-09-09 12:11 | Orthopedic Progress Note ---
Date of Service September 09, 2024 Assessment & Plan (1) Periprosthetic fracture around internal prosthetic right hip joint: Plan: IMPRESSION: Right hip non-displaced greater trochanteric eloisa-prosthetic femur fracture. PLAN: PWB RLE max 50% with walker Continue diet, no plan for surgical intervention at this time. Continue pain control DVT prophylaxis: Teds, foot pumps/SCDs, Continue Xeralto PT/OT D/C planning Continue care per primary service. Ok to d/c from Ortho standpoint. If still in house tomorrow will transfer ortho care to Dr. Beltran. F/U with Dr. Beltran after d/c Admission and Anticipated Discharge Date Admission Date: September 07, 2024 Subjective Right leg pain, improving Physical Exam Physical Exam: Dressed sitting comfortably on the edge of his bed RLE: Sensation to light touch unchanged. BCR < 2 sec. Able to preform straight leg raise. Actively flex and extend the hip/knee. Incisions well healed, no evidence of infection. Hip ROM: FF 100 deg; Abduction 35 deg, Adduction 10 deg; ER 40 deg; IR 5 deg Mild TTP lateral aspect of the hip. No swelling/bruising Results & Data Vital Signs (Past 12 Hours) Vital Signs Temp Pulse Resp BP Pulse Ox O2 Del Method 09/09/24 07:25 Room Air 09/09/24 07:18 36.4 C L 82 16 139/86 93 Room Air Laboratory Results Laboratory Results WBC 10.85 K/ul (4.8-10.8) H 09/07/24 20: RBC 4.22 M/uL (4.70-6.10) L 09/07/24 20:31 Hgb 13.6 g/dl (14.0-18.0) L 09/07/24 20:31 Hct 41.1 % (42.0-52.0) L 09/07/24 20: MCV 97.4 fL (80.0-100.0) 09/07/24 20: MCH 32.2 pg (25.0-34.0) 09/07/24 20:31 MCHC 33.1 g/dL (32.0-36.0) 09/07/24 20: RDW Std Deviation 63.2 fL (36.4-46.3) H 09/07/24 20: RDW Coeff of Marce 17.6 % (11.5-14.5) H 09/07/24 20: Plt Count 219 K/uL (130-400) 09/07/24 20: MPV 10.6 fL (9.4-12.4) 09/07/24 20: Immature Gran % (Auto) 0.3 % 09/07/24 20: Neut % (Auto) 73.9 % 09/07/24: Lymph % (Auto) 13.6 % 09/07/24: Sharkey % (Auto) 9.9 % 09/07/24: Eos % (Auto) 1.8 % 09/07/24: Baso % (Auto) 0.5 % 09/07/24: Neut # (Auto) 8.03 K/uL (1.40-6.50) H 09/07/24 20: Lymph # (Auto) 1.48 K/uL (1.20-3.40) 09/07/24 20: Sharkey # (Auto) 1.07 K/uL (0.11-0.59) H 09/07/24 20: Eos # (Auto) 0.19 K/uL (0.00-0.50) 09/07/24 20: Baso # (Auto) 0.05 K/uL (0.00-0.20) 09/07/24 20: Immature Gran # (Auto) 0.03 K/uL (0.01-0.20) 09/07/24 20: PT 13.9 Seconds (9.0-12.0) H 09/07/24 20: INR 1.3 (0.9-1.1) H 09/07/24 20: APTT 38 Seconds (21-31) H 09/07/24 20:31 PTT Ratio 1.4 09/07/24 20:31 Sodium 142 mmol/L (136-145) 09/07/24 20: Potassium 3.6 mmol/L (3.5-5.1) 09/07/24 20: Chloride 101 mmol/L (98-107) 09/07/24 20: Carbon Dioxide 34 mmol/L (21-32) H 09/07/24 20:31 Anion Gap 7 (3-11) 09/07/24 20:31 BUN 33 mg/dl (6-23) H 09/07/24 20:31 Creatinine 1.26 mg/dl (0.6-1.4) 09/07/24 20: Est Cr Clr Drug Dosing 72.0 ml/min 09/07/24 20:31 eGFR 61.36 09/07/24 20: BUN/Creatinine Ratio 26.2 (10-20) H 09/07/24 20:31 Glucose 105 mg/dl (70-99(Fasting)) H 09/07/24 20: POC Glucose 98 mg/dl (70-99) 09/09/24 11:34 Calcium 9.7 mg/dl (8.6-10.3) 09/07/24 20: Total Bilirubin 0.9 mg/dl (0.2-1.0) 09/07/24 20:31 AST 18 U/L (13-39) 09/07/24 20: ALT 14 U/L (7-52) 09/07/24 20: Alkaline Phosphatase 165 U/L (34-104) H 09/07/24 20:31 Total Protein 7.8 gm/dl (6.0-8.3) 09/07/24 20: Albumin 4.2 gm/dl (3.4-5.0) 09/07/24 20: Globulin 3.6 gm/dl (2.5-4.0) 09/07/24 20: Albumin/Globulin Ratio 1.2 (0.9-2) 09/07/24 20: Urine Color Yellow 09/07/24 22:47 Urine Appearance Clear (Clear) 09/07/24 22:47 Urine pH 8.0 (4.5-7.5) H 09/07/24 22:47 Ur Specific Rap[place] 1.008 (1.000-1.030) 09/07/24 22: Urine Protein Negative (Negative) 09/07/24 22:47 Urine Glucose (UA) 1+ (Negative) H 09/07/24 22:47 Urine Ketones Negative (Negative) 09/07/24 22:47 Urine Blood Negative (Negative) 09/07/24: Urine Nitrite Negative (Negative) 09/07/24 22: Urine Bilirubin Negative (Negative) 09/07/24 22:47 Urine Urobilinogen Negative (Negative) 09/07/24 22:47 Ur Leukocyte Esterase Negative (Negative) 09/07/24 22:47 Urine Comment 09/07/24 22:47 Impressions Hip/Pelvis X-Ray 09/07/24 18:09 EXAM: XR hip RT 2V w pelvis CLINICAL HISTORY: hip pain. TECHNIQUE: X-ray images of the right hip joint and pelvis in AP and lateral projection. COMPARISON: No prior studies available for comparison. FINDINGS: Hip Joints: Evidence of right-sided total hip replacement. No evidence of prosthesis loosening, break, or chronic osteomyelitis. A radiolucent line is noted at the proximal end of the femur at the inferior part of the trochanters in the AP view. Sacroiliac joints appear normal and unremarkable. No evidence of sacroiliitis or significant degenerative changes. Symphysis Pubis: Symphysis pubis is normal and intact. No evidence of separation or widening. Soft Tissues: Visualized soft tissues are normal and unremarkable. No soft tissue swelling, calcifications, or masses. Additional Findings: Lumbar spinal fixation. IMPRESSION: 1. Evidence of right-sided total hip replacement. 2. No evidence of prosthesis loosening, break, or chronic osteomyelitis. 3. A radiolucent line is noted at the proximal end of the femur at the inferior part of the trochanters. Suspected non displaced fracture. Correlate clinically with point of tenderness and follow up suggested Disclaimer: A subtle bone abnormality or fracture may not be readily apparent on X-rays; thus, clinical correlation and further imaging, including follow-up CT, MRI, or follow-up X-ray, are advised as needed. Electronically signed by Fidel Everett 09-07-2024 8:12 PM Knee X-Ray 09/07/24 18:09 EXAM: XR knee RT 3V CLINICAL HISTORY: Knee pain TECHNIQUE: X-ray images of the right knee were obtained in anteroposterior (AP), lateral, and sunrise/skyline (patellar) projections. COMPARISON: 11/24/2023 CR FINDINGS: Bone Structure and joints: Evidence of total knee replacement. Hardware is intact. No evidence of loosening or radiographic signs of active osseous infection. Diffuse osteopenia. Patella: Patella is normal in position and alignment. No evidence of patellar dislocation or subluxation. Soft Tissues: No soft tissue swelling, calcifications, or foreign bodies noted. Additional Findings: No lytic or sclerotci lesions. There is a small trace of suprapatellar joint effusion. IMPRESSION: 1. Evidence of total knee replacement with no related complications. Unchanged. 2. No acute osseous abnormality. 3. Diffuse osteopenia. Stable. 4. Small joint effusion, significant interval regression. Disclaimer: A subtle bone abnormality or fracture may not be readily apparent on X-rays, thus clinical correlation and further imaging including follow-up CT, MRI, or follow-up X-rays are advised as needed. Electronically signed by Fidel Everett 09-07-2024 8:18 PM Chest X-Ray 09/07/24 20:15 Exam(s): XR CXR 1 VIEW EXAM: XR Chest, 1 View CLINICAL HISTORY: R hip fx. TECHNIQUE: Frontal view of the chest. COMPARISON: Chest two views dated 09/29/2023 FINDINGS: Lungs: No focal airspace consolidation. No radiographic evidence for florid CHF. The prominent hilar structures are stable and presumed vascular. Stable calcified granuloma in the right mid lung zone. Pleural space: Unremarkable. No pneumothorax. No large pleural effusion. Heart: Cardiomegaly appears more prominent, presumed accentuated by portable AP technique. Mediastinum: No significant abnormality identified. The trachea is midline. Bones/joints: Unremarkable. No acute fracture. Upper abdomen: Similar asymmetrically elevated right hemidiaphragm. IMPRESSION: No acute cardiopulmonary process or significant alteration from the prior examination. Electronically signed by: J Carlos Farrell MD 09/07/24 23:05 PM (1) Periprosthetic fracture around internal prosthetic right hip joint Encounter type: initial encounter Qualified Code(s): M97.01XA - Periprosthetic fracture around internal prosthetic right hip joint, initial encounter
--- NOTE | 2024-09-09 16:04 | Electrocardiogram Report ---
Test Reason : Blood Pressure : */* mmHG Vent. Rate : 65 BPM Atrial Rate : * BPM P-R Int : * ms QRS Dur : 100 ms QT Int : 422 ms P-R-T Axes : * 6 34 degrees QTcB Int : 438 ms Atrial fibrillation Abnormal ECG When compared with ECG of 29-Sep-2023 09:29, No significant change was found Confirmed by Anastacio Payne ([id number]) on 09/09/2024 4:03:59 PM Referred By: REFERRED SELF Confirmed By: Anastacio Payne
[2024-09-09] MEDS: FUROSEMIDE 80 MG TAB PO SCH (16:52)
[2024-09-10 08:09] LABS: Hematocrit (blood only) 42.9 % (42.0-52.0); Hemoglobin 14.1 g/dl (14.0-18.0); Mean Corpuscular Hemoglobin 32.0 pg (25.0-34.0); Mean Corpuscular Volume 97.3 fL (80.0-100.0); Platelet Count 261 K/uL (130-400); RDW Standard Deviation 61.7 fL (36.4-46.3); Red Blood Count 4.41 M/uL (4.70-6.10); White Blood Count 10.35 K/ul (4.8-10.8)
[2024-09-10 08:32] LABS: Anion Gap 7.0 (3-11); Blood Urea Nitrogen 31.0 mg/dl (6-23); Calcium 9.5 mg/dl (8.6-10.3); Carbon Dioxide 34.0 mmol/L (21-32); Chloride 102.0 mmol/L (98-107); Creatinine Clr Calc Pharmacy 77.7 ml/min; Glucose 102.0 mg/dl (70-99(Fasting)); Potassium 3.7 mmol/L (3.5-5.1); Sodium 143.0 mmol/L (136-145)
--- NOTE | 2024-09-10 10:29 | Orthopedic Consultation ---
Date of Service September 10, 2024 Assessment & Plan (1) Periprosthetic fracture around internal prosthetic right hip joint: * Case/imaging reviewed and discussed with Dr Beltran * Recommend continued close treatment of right periprosthetic femur fracture * Disposition: Home * Daily treatment: Physical Therapy/ Occupational Therapy per protocol * Weight bearing status: 50% weightbearing, walker * Pain control * Remainder care per primary team * Office follow-up for repeat x-ray 1-2 weeks History of Present Illness Reason for Consultation: . Right hip pain Requesting Physician: . Attending Physician: Humberto Murphy MD . Patient is a 68y/o male with right hip pain. PMH including HTN, peripheral neuropathy, diastolic heart failure, DM2, A-fib on Xarelto, COPD, hypercholesterolemia. Surgical history including right hip and knee replacement by Dr. Beltran. Presents to hospital with right hip pain. Per patient developed sudden onset right hip pain approximately 5 days ago with no known injury, denies fall or other trauma. Over the following days developed increasing pain, contacted his PCP Tuesday afternoon who recommended ER evaluation. ED workup including x-ray right hip demonstrating nondisplaced periprosthetic hip fracture at the inferior trochanteric region. Admitted to hospital medicine team for amatory dysfunction, orthopedics consulted for med recommendations. Patient was seen over the weekend by [facility] team, now transferring care to [facility]. At time of exam patient standing, using walker secondary to partial weight bearing restriction. Reports mild pain of the hip at rest and with activity, does radiate down the thigh towards the knee at times. Peripheral neuropathy symptoms per baseline. Currently using a walker. Allergies Allergy/AdvReac Type Severity Reaction Status Date / Time dicyclomine [From Bentyl] Allergy Unknown CAN'T Verified 09/07/24 20:37 REMEMBER Home Medications Medication Instructions Recorded Confirmed Type albuterol sulfate 90 mcg/actuation 2 inh inhalation Q4H PRN shortness 03/18/23 09/07/24 Rx breath activated powder inhaler of breath or wheezing #1 ea oxygen #2 ea 04/28/23 08/22/24 Rx acetaminophen 500 mg tablet 1,000 mg (2 x 500 mg) PO TID pain 10/08/23 09/07/24 Rx (Tylenol Extra Strength) 30 days #180 tabs diltiazem HCl 180 mg 180 mg PO DAILY #90 caps 03/12/24 09/07/24 Rx capsule,extended release 24 hr empagliflozin 10 mg tablet 10 mg PO QAM #30 tabs 03/12/24 09/07/24 Rx (Jardiance) fluticasone fur. 100 mcg-umeclid 1 inh inhalation DAILY #60 ea 03/12/24 09/07/24 Rx 62.5 mcg-vilant 25 mcg inhalat.powder (Trelegy Ellipta) metformin 500 mg tablet 500 mg PO BID #180 tabs 03/12/24 09/07/24 Rx rivaroxaban 20 mg tablet (Xarelto) 20 mg PO DAILY #30 tabs 03/12/24 09/07/24 Rx allopurinol 300 mg tablet 300 mg PO BID #180 tabs 04/11/24 09/07/24 Rx atorvastatin 10 mg tablet 10 mg PO QPM #90 tabs 04/11/24 09/07/24 Rx furosemide 80 mg tablet 80 mg PO DAILY #180 tabs 04/11/24 09/07/24 Rx metoprolol tartrate 100 mg tablet 100 mg PO BID #180 tabs 04/11/24 09/07/24 Rx blood sugar diagnostic (OneTouch #100 ea 06/07/24 08/22/24 Rx Ultra Test strips) lancets #100 ea 06/07/24 08/22/24 Rx lisinopril 5 mg tablet 5 mg PO DAILY #90 tabs 06/07/24 09/07/24 Rx diclofenac sodium 1 % topical gel 4 g topical QID PRN pain #200 grams 08/22/24 09/07/24 Rx duloxetine 60 mg capsule,delayed 60 mg PO DAILY #90 caps 08/22/24 09/07/24 Rx release Past Med/Surg History Problem List (Updated 09/07/24 @ 21:29 by Oz Callahan) Periprosthetic fracture around internal prosthetic right hip joint (Acute) Peripheral neuropathy Pulmonary hypertension Diastolic heart failure (Chronic) (HFpEF) heart failure with preserved ejection fraction Type 2 diabetes mellitus (Acute) Status post right knee replacement (Acute) Hx of congestive heart failure Chronic atrial fibrillation (Acute) Taking Xarelto COPD (chronic obstructive pulmonary disease) Elevated bilirubin Right knee DJD Benign essential hypertension (Chronic) Chronic obstructive pulmonary disease (Chronic) Gout (Chronic) Hypercholesterolemia (Chronic) Medical History Encounter for pre-operative examination History of cor pulmonale Other secondary pulmonary hypertension Echo/RHC 04/2023 Type II/III Follows with [facility]. Per visit 04/2023, "Predominantly he has pulmonary hypertension is postcapillary due to diastolic heart failure. Treatment of this syndrome is maintaining an adequate volume status." Lumbar spinal stenosis DJD (degenerative joint disease) Hx of diabetic foot ulcer Hx of left foot ulcer "resolved" per patient- no active infection/ulcer Monitored/[facility] with [facility] foot care Venous insufficiency Osteoarthritis Diabetes Hyperlipidemia HTN (hypertension) Hx of gout History of COVID-19 (01/2023) Hospitalized x 3 days at [facility] (obstructive sleep apnea) BIPAP (compliant) Surgical History Hx of total knee replacement 10/11/23 History of lumbar fusion (2008) Hx of cardiac catheterization (04/26/23) RHC- Significantly elevated pulmonary capillary wedge pressure. Significantly elevated pulmonary arterial pressure and pulmonary vascular resistance. Significantly elevated right ventricular end-diastolic pressure and right atrial pressure. Recommend continue diuresis for volume overload. Additional recommendations regarding elevated pulmonary vascular resistance per pulmonary medicine team. H/O total hip arthroplasty Right History of vasectomy Family History Mother Coronary heart disease Hypertension Diabetes Denies family history of Ovarian cancer Prostate cancer Myocardial infarction Breast cancer Colorectal cancer Social History Smoking Status: Never smoker Tobacco Type: Cigarettes Age Started Using Tobacco: 10; Age Quit Using Tobacco: 48; packs per day: 2.5; Second Hand Exposure: Yes (hx); Do You Dip or Chew Tobacco: No; Hx Alcohol Use: No Hx Substance Use: No Preferred Language: Maori Communication Ability: Effective Visual Impairment: No Limitations Route Salesman And Driver Required: No Beliefs That Will Affect Care: None marital status: Current Living Situation: Family Current Living Situation Comment: and brother in law current occupational status: disabled Feels Safe at Home: Yes Childhood Exposure to Second-Hand Smoke: Yes Diet: DASH caffeine: Yes Seatbelt Use: always Sunscreen Use: No Assistive Devices: BiPap, Cane and Glasses Review of Systems All systems reviewed & are unremarkable except as noted in HPI & below. Physical Exam . * General: Alert and oriented, no acute distress * Constitutional: well-developed, well-nourished. * Respiratory: Normal respiratory effort, no distress * Gastrointestinal: No tenderness to palpation, no rigidity or guarding. * Skin: No rash or lesion. * Neurologic: Grossly normal * Musculoskeletal: Right hip region with no obvious deformity or overlying skin changes. Well-healed JAMES incision. Mild TTP with deep palpation to the proximal femur/trochanteric region. Otherwise no tenderness of the proximal thigh, distal thigh, knee, lower leg. AROM hip flexion, abduction, extension intact without increased pain. AROM foot/ankle intact. Sensation intact plantar/dorsal foot. Brisk capillary refill. Results & Data Results & Data Laboratory Results . Diagnostic Findings 09/07/24 XR R hip IMPRESSION: 1. Evidence of right-sided total hip replacement. 2. No evidence of prosthesis loosening, break, or chronic osteomyelitis. 3. A radiolucent line is noted at the proximal end of the femur at the inferior part of the trochanters. Suspected non displaced fracture. Correlate clinically with point of tenderness and follow up suggested PG Care Time/CCT Total # of Minutes Spent Total Time Spent with Patient: Total time spent is greater than 50% in coordination of care (as documented) at patient's floor/unit and/or counseling patient: Coding [place] [address] IN/OBS CONSULT LVL 2,35M Patient Type Established Diagnoses Periprosthetic fracture around internal prosthetic right hip joint M97.01XA Encounter type: initial encounter (1) Periprosthetic fracture around internal prosthetic right hip joint Encounter type: initial encounter Qualified Code(s): M97.01XA - Periprosthetic fracture around internal prosthetic right hip joint, initial encounter
[2024-09-10 11:05] VITALS: BP 106/67; PULSE 72; TEMP 97.5; O2SAT 94
--- NOTE | 2024-09-10 12:55 | Discharge Summary ---
Discharge Summary Date of Service September 10, 2024 Principal Dx & Hospital Course #1 = Principal Diagnosis (1) Periprosthetic fracture around internal prosthetic right hip joint: (2) (HFpEF) heart failure with preserved ejection fraction: (3) Type 2 diabetes mellitus: (4) Status post right knee replacement: (5) Chronic atrial fibrillation: Plan This is a 68 year old male with a PMH of HFpEF, A. fib on Xarelto, DM2, HTN, pulmonary HTN, COPD, R JAMES about 20 years prior and R TKA in 2023; coming in with R hip pain; concern for acute R proximal femur fracture #Periprosthetic fracture around internal prosthetic right hip joint Right hip XR: radiolucent line noted @ proximal end of femur @ inferior part of trochanters. suspected non-displaced fracture. Ortho consulted: 50% weight bearing on right extremity + walker. Follow up in ortho office 1-2 weeks for repeat imaging PT/OT consulted --> safe to return home. Tylenol prn for pain #HFpEF Continue Jardiance, Lasix, Metoprolol, Lisinopril No acute exacerbation @ this time. #A fib continue Xarelto, Diltiazem & Metoprolol #Type 2 DM resume outpatient regimen on discharge. A1c 04/2024: 6.1% #HLD - statin #COPD - Home inhalers #HTN - lisinopril Discharged home 09/10. Admission HPI Per Admitting Provider This is a 68 year old male with a PMH of HFpEF, A. fib on Xarelto, DM2, HTN, pulmonary HTN, COPD, R JAMES about 20 years prior and R TKA in 2023; coming in with R hip pain. Patient actually has had pain for the past few months especially with ambulation, but the pain has worsened. On arrival here, R Knee and Hip x-rays done and concerning for non-displaced fracture at the proximal end of the femur. Ortho was consulted and at this point unsure if surgery is needed. Dr. Beltran performed previous surgery and will see patient. Discharge Exam GENERAL APPEARANCE NAD, activity normal for age, well developed/ well nourished, no cyanosis, pallor, or diaphoresis. EYES lids/conjunctiva normal. EARS/NOSE/THROAT Mucous membranes moist, nares normal, lips/teeth normal uvula midline without oral pharyngeal erythema, exudate or swelling TMs normal bilaterally. No lymphangitis/lymphedema. HEAD/NECK normocephalic atraumatic, no facial trauma, neck is supple. RESPIRATORY respiratory effort normal, speaks in full sentences, no tripod position, no accessory muscle use. CARDIAC no edema. SKIN Warm, pink and dry. No rashes, dermatoses, petechiae or lesions. NEUROLOGICAL Speech is clear and appropriate. Normal level of consciousness. Gait and coordination are normal PSYCH Normal mood and affect. Judgement/competence is appropriate Discharge Plan Discharge Items Patient Disposition: Home - Self-Care Reason For Visit: ATRAUMATIC PROXIMAL FEMURE FRACTURE Discharge Diagnosis: Atraumatic proximal femur fracture Condition on Discharge: Fair Activity: Per Instructions section Non-emergency contact: Primary Care Provider and Surgeon Call non-emergency contact if: you have any medication questions, your symptoms worsen and your pain is not controlled Follow-up/Referrals: Nolan Soria MD [Primary Care Provider] - 09/18/24 11:30 am Yasir Beltran MD [Physician] - 09/14/24 9:30 am Diet: Carb Consistent or DM2 Addtl Attending Provider Instructions: Mr. Fermin, You were recently hospitalized secondary to right hip pain and were found to have a small fracture in your femur. You were evaluated by orthopedics, physical therapy, and occupational therapy who all deem you safe to return home. Please see recommendations below regarding your discharge. Please maintain 50% weight bearing on your right leg with walker at this time. Please follow up with orthopedics within 1-2 weeks of discharge for repeat imaging. The remainder of your medications may be resumed unless stated otherwise below. Please use Tylenol 1000mg every 8 hours as needed for pain. Please follow up with your PCP within 1-2 weeks of discharge. Best of luck! Roro Oneal PA-C Pending Studies at Discharge: No Stand-Alone Forms: My [employer] ([facility]), Smoking Cessation Medications and DC Order Prescriptions: Continued albuterol sulfate 90 mcg/actuation aerosol powdr breath activated 2 inh inhalation Q4H PRN (Reason: shortness of breath or wheezing) Qty: 1 1RF acetaminophen [Tylenol Extra Strength] 500 mg tablet 1,000 mg PO TID 30 Days Qty: 180 0RF Rx Instructions: TAke 3 times per day to lessen pain. diltiazem HCl 180 mg capsule,extended release 24hr 180 mg PO DAILY Qty: 90 3RF Jardiance 10 mg tablet 10 mg PO QAM Qty: 30 11RF Rx Instructions: for diabetes, fluid overload and protein in urine Daltonleariel Ellipta 100-62.5-25 mcg blister with device 1 inh inhalation DAILY Qty: 60 11RF metformin 500 mg tablet 500 mg PO BID Qty: 180 3RF Xarelto 20 mg tablet 20 mg PO DAILY Qty: 30 11RF Rx Instructions: must administer with a meal/food allopurinol 300 mg tablet 300 mg PO BID Qty: 180 3RF atorvastatin 10 mg tablet 10 mg PO QPM Qty: 90 3RF Rx Instructions: take with evening meal for cholesterol furosemide 80 mg tablet 80 mg PO DAILY Qty: 180 3RF Rx Instructions: Can increase to 80 mg BID as needed for shortness of breath, edema, weight gain. metoprolol tartrate 100 mg tablet 100 mg PO BID Qty: 180 3RF lisinopril 5 mg tablet 5 mg PO DAILY Qty: 90 3RF diclofenac sodium 1 % gel 4 g topical QID PRN (Reason: pain) Qty: 200 11RF duloxetine 60 mg capsule,delayed release(DR/EC) 60 mg PO DAILY Qty: 90 3RF Rx Instructions: Take with breakfast for pain control. No Action (DME) OneTouch Ultra Test Strip See Rx Instructions .ROUTE .COMPLEX Qty: 100 3RF Dose Instruction: USE TO CHECK BLOOD SUGAR ONCE DAILY Rx Instructions: USE TO CHECK BLOOD SUGAR ONCE DAILY E11.9 (DME) lancets Misc See Rx Instructions .Route Qty: 100 3RF Rx Instructions: One Touch Delica Lancet 33guage, test daily, E11.21 (DME) oxygen See Rx Instructions .Route .MEDSUPPLY Qty: 2 0RF Rx Instructions: As directed Discharge Orders: Discharge Order (Routine); Ordered 09/10/24 Ordered By: Roro Carpenter/Other Patient Handouts: [facility] Admission Data Admit Date/Time: 09/07/24 20:42 Attending Provider: Humberto Murphy Admit Provider: Carmenza Palacios Primary Care Provider: Nolan Soria Other Providers: Yasir Beltran; Woo August; Carmenza Palacios Other Interventions: Discharge Summary Assessment (RN) Last Done: 09/10/24 13:37 Hospital Stay Data Consultations 09/07/24 20:15 Consult Orthopedic Surgery Routine 09/07/24 20:25 Consult Orthopedic Surgery Stat 09/07/24 20:26 ED Decision to Admit Stat Pending Results Patient Have Any Pending Studies at Discharge: No Discharge Instructions Given to Patient (Per Discharging Provider) Mr. Fermin, Dimitris were recently hospitalized secondary to right hip pain and were found to have a small fracture in your femur. You were evaluated by orthopedics, physical therapy, and occupational therapy who all deem you safe to return home. Please see recommendations below regarding your discharge. Please maintain 50% weight bearing on your right leg with walker at this time. Please follow up with orthopedics within 1-2 weeks of discharge for repeat imaging. The remainder of your medications may be resumed unless stated otherwise below. Please use Tylenol 1000mg every 8 hours as needed for pain. Please follow up with your PCP within 1-2 weeks of discharge. Best of luck! Roro Oneal PA-C Total Time Total Time Spent Total Time Spent (In Minutes): 45 Total Time Includes: Examination of the Patient, Discharge Planning and Medication Reconciliation Coding Level of Care Code 90887 INP/OBS DISCH >30 MIN Diagnoses Periprosthetic fracture around internal prosthetic right hip joint M97.01XA Encounter type: initial encounter (HFpEF) heart failure with preserved ejection fraction I50.30 Type 2 diabetes mellitus E11.9 Status post right knee replacement Z96.651 Chronic atrial fibrillation I48.20
== END 2024-09-10 16:10 | disposition home or self-care (01) | DRG 536 ==
LOC: ED 17:39 → SUATTDRO 20:42 → 3N 20:42

== ENCOUNTER 2024-12-05 18:56 | Inpatient (IN) ==
[2024-12-05] MEDS: CEFEPIME 2000MG 2,000 MG/20 ML SYR IV STA (19:27)
[2024-12-05 19:33] LABS: Hematocrit (blood only) 34.3 % (42.0-52.0); Hemoglobin 11.1 g/dl (14.0-18.0); Immature Granulocytes # (auto) 0.09 K/uL (0.01-0.20); Immature Granulocytes % (auto) 0.6 %; Mean Corpuscular Hemoglobin 31.2 pg (25.0-34.0); Mean Corpuscular Volume 96.3 fL (80.0-100.0); Platelet Count 238 K/uL (130-400); RDW Standard Deviation 65.2 fL (36.4-46.3); Red Blood Count 3.56 M/uL (4.70-6.10); White Blood Count 16.30 K/ul (4.8-10.8)
[2024-12-05 19:49] LABS: Alanine Aminotransferase 13 U/L (7-52); Albumin Level 3.4 gm/dl (3.4-5.0); Alkaline Phosphatase 134 U/L (34-104); Anion Gap 6 (3-11); Bilirubin,Total 0.8 mg/dl (0.2-1.0); Blood Urea Nitrogen 46 mg/dl (6-23); Calcium 9.2 mg/dl (8.6-10.3); Carbon Dioxide 31 mmol/L (21-32); Chloride 97 mmol/L (98-107); Glucose 171 mg/dl (70-99(Fasting)); Magnesium 2.2 mg/dl (1.7-2.4); Potassium 3.8 mmol/L (3.5-5.1); Sodium 134 mmol/L (136-145); Total Protein 7.1 gm/dl (6.0-8.3)
--- NOTE | 2024-12-05 20:12 | XRay Report ---
EXAM: Portable AP chest radiograph TECHNIQUE: AP portable radiograph of the chest was obtained. INDICATION: Sepsis Comparison: Chest radiograph September 07, 2024 FINDINGS: LINES and TUBES: None CARDIOVASCULAR: Cardiac silhouette is stably and mildly enlarged in size. Atherosclerosis of the thoracic aorta. LUNGS/PLEURA: No focal consolidation identified. Mild interstitial pulmonary edema and chronic interstitial lung changes. Left greater than right bibasilar densities may represent atelectasis or mild pneumonia. No significant pleural fluid. No discernible pneumothorax. OSSEOUS/OTHER: No displaced acute osseous process identified. IMPRESSION: Left greater than right bibasilar densities may represent atelectasis or mild pneumonia. Congestive changes of the cardiovascular system Electronically signed by William Dow 12-05-2024 8:12 PM
[2024-12-05] MEDS: FUROSEMIDE 40 MG/4 ML VIAL IV ONE (21:13)
--- NOTE | 2024-12-05 21:27 | History & Physical Report ---
Date of Service December 05, 2024 Assessment & Plan (1) Acute respiratory failure with hypoxia: (2) Pneumonia: (3) CHF exacerbation: (4) Urinary retention due to benign prostatic hyperplasia: Plan The patient is a 69-year-old male with a past medical history including atrial fibrillation, PMR, peripheral neuropathy, pulmonary hypertension, HFpEF, diabetes mellitus type 2, hypertension, COPD, gout, and hypercholesterolemia. He presents to the emergency department with his daughter and accompanying, with complaint of shortness of breath for began 4 days ago. He has progressively worsened since that time. He developed temperature last evening to 103, and took the advice of his family, presenting to the ED for assessment. Workup in the emergency department included chest x-ray suggestive of by basilar pneumonia, and CHF. Pulse ox initially was in the mid 80s on room air, and had improved with OxyMask 4 L to the low 90s. However, patient worsened while in the ED, and had pulse ox remaining in the upper 70s to low 80s in spite of oxy mask increased to 12 L. Patient typically wears BiPAP 17/13 at home, and was placed while in the ED. His oxygenation improved to the mid 90s, but is somewhat variable recording due to issues with likely with Raynaud's. He will be on BiPAP for 30 minutes, and I will be getting an ABG. While in the ED he did receive furosemide 40 mg IV, cefepime 2 g IV, and azithromycin 500 mg IV. We then gave him additional Lasix 40 mg IV, and Solu-Medrol 125 mg IV. Acute respiratory failure with hypoxia/CHF exacerbation/pneumonia/chronic BiPAP- Presently on BiPAP 17/13 and oxygen 100%. Does wear BiPAP at bedtime Repeat ABG in 30 minutes Treating CHF and pneumonia Acetaminophen 1 g IV every 8 hours as needed for mild pain or fever Pantoprazole 40 mg IV daily CHF/chronic atrial fibrillation/hypertension- The patient will be admitted to telemetry for serial cardiac enzymes, serial EKG's, cardiac rhythm monitoring and a 2-D echocardiogram with Dopplers. Given total furosemide 80 mg IV in the ED Hold oral furosemide 80 mg Furosemide 80 mg IV every morning. Continue Xarelto, metoprolol titrate and diltiazem Hold lisinopril Serial CBC with differential, chemistry profile and magnesium levels Bibasilar pneumonia- Cefepime 2 g IV every 12 hours Azithromycin 500 mg IV every 24 hours Solu-Medrol 125 mg IV in the ED, then continue 40 mg IV every 8 hours in the a.m. Duonebs every 4 hours while awake and every 2 hours when necessary. Continue Trelegy Ellipta MRSA swab pending Diabetes mellitus- Hold metformin Continue Jardiance Placed on Accu-Cheks with NovoLog SSI Check hemoglobin A1c BPH with urinary retention- Placed Watson catheter in the ED Patient reports that outpatient feeling as duloxetine has been contributing, and is presently on a tapering schedule. Continue current duloxetine dosing Hyperlipidemia- Continue atorvastatin Check a fasting lipid panel Neuropathy- Is presently on tapering schedule duloxetine due to concerns regarding exacerbation of urinary retention gout- Continue allopurinol History of Present Illness Chief Complaint: The patient presents to the emergency department with daughter and in attendance, with complaint of shortness of breath that began 4 days ago, and has progressively worsened since that time. He developed a temperature last evening to 103, and at the advice of his family, his presented to the emergency department for assessment. Primary Care Provider: Nolan Soria MD The patient is a 69-year-old male with a past medical history including atrial fibrillation, PMR, peripheral neuropathy, pulmonary hypertension, HFpEF, diabetes mellitus type 2, hypertension, COPD, gout, and hypercholesterolemia. He presents to the emergency department with his daughter and accompanying, with complaint of shortness of breath for began 4 days ago. He has progressively worsened since that time. He developed temperature last evening to 103, and took the advice of his family, presenting to the ED for assessment. Workup in the emergency department included chest x-ray suggestive of by basilar pneumonia, and CHF. Pulse ox initially was in the mid 80s on room air, and had improved with OxyMask 4 L to the low 90s. However, patient worsened while in the ED, and had pulse ox remaining in the upper 70s to low 80s in spite of oxy mask increased to 12 L. Patient typically wears BiPAP at home, and was placed while in the ED. His oxygenation improved to the mid 90s, but is somewhat variable recording due to issues with likely with Raynaud's. He will be on BiPAP for 30 minutes, and I will be getting an ABG. While in the ED he did receive furosemide 40 mg IV, cefepime 2 g IV, and azithromycin 500 mg IV. We then gave him additional Lasix 40 mg IV, and Solu-Medrol 125 mg IV. Allergies Allergy/AdvReac Type Severity Reaction Status Date / Time dicyclomine [From Bentyl] Allergy Unknown CAN'T Verified 12/05/24 20:29 REMEMBER Home Medications Medication Instructions Recorded Confirmed Type albuterol sulfate 90 mcg/actuation 2 inh inhalation Q4H PRN shortness 03/18/23 12/05/24 Rx breath activated powder inhaler of breath or wheezing #1 ea oxygen #2 ea 04/28/23 10/26/24 Rx diltiazem HCl 180 mg 180 mg PO DAILY #90 caps 03/12/24 12/05/24 Rx capsule,extended release 24 hr empagliflozin 10 mg tablet 10 mg PO QAM #30 tabs 03/12/24 12/05/24 Rx (Jardiance) fluticasone fur. 100 mcg-umeclid 1 inh inhalation DAILY #60 ea 03/12/24 12/05/24 Rx 62.5 mcg-vilant 25 mcg inhalat.powder (Trelegy Ellipta) metformin 500 mg tablet 500 mg PO BID #180 tabs 03/12/24 12/05/24 Rx rivaroxaban 20 mg tablet (Xarelto) 20 mg PO DAILY #30 tabs 03/12/24 12/05/24 Rx allopurinol 300 mg tablet 300 mg PO BID #180 tabs 04/11/24 12/05/24 Rx atorvastatin 10 mg tablet 10 mg PO QPM #90 tabs 04/11/24 12/05/24 Rx furosemide 80 mg tablet 80 mg PO DAILY #180 tabs 04/11/24 12/05/24 Rx metoprolol tartrate 100 mg tablet 100 mg PO BID #180 tabs 04/11/24 12/05/24 Rx blood sugar diagnostic (OneTouch #100 ea 06/07/24 10/26/24 Rx Ultra Test strips) lancets #100 ea 06/07/24 10/26/24 Rx lisinopril 5 mg tablet 5 mg PO DAILY #90 tabs 06/07/24 12/05/24 Rx duloxetine 30 mg capsule,delayed 30 mg PO DAILY #30 caps 12/03/24 12/05/24 Rx release acetaminophen 500 mg tablet 1,000 mg PO TID PRN pain 12/05/24 12/05/24 History (Tylenol Extra Strength) Past Med/Surg History Problem List (Updated 12/05/24 @ 21:45 by Sergio Chaparro MD) Urinary retention due to benign prostatic hyperplasia CHF exacerbation Pneumonia Acute respiratory failure with hypoxia PMR (polymyalgia rheumatica) Urinary frequency Trochanteric bursitis, right hip Periprosthetic fracture around internal prosthetic right hip joint (Acute) Peripheral neuropathy Pulmonary hypertension Diastolic heart failure (Chronic) (HFpEF) heart failure with preserved ejection fraction Type 2 diabetes mellitus (Acute) Status post right knee replacement (Acute) Hx of congestive heart failure Chronic atrial fibrillation (Acute) Taking Xarelto COPD (chronic obstructive pulmonary disease) Elevated bilirubin Right knee DJD Benign essential hypertension (Chronic) Chronic obstructive pulmonary disease (Chronic) Gout (Chronic) Hypercholesterolemia (Chronic) Medical History Encounter for pre-operative examination History of cor pulmonale Other secondary pulmonary hypertension Lumbar spinal stenosis DJD (degenerative joint disease) Hx of diabetic foot ulcer Venous insufficiency Osteoarthritis Diabetes Hyperlipidemia HTN (hypertension) Hx of gout History of COVID-19 (01/2023) AISHA (obstructive sleep apnea) Surgical History Hx of total knee replacement History of lumbar fusion (2008) Hx of cardiac catheterization (04/26/23) H/O total hip arthroplasty History of vasectomy Family History Mother Coronary heart disease Hypertension Diabetes Denies family history of Ovarian cancer Prostate cancer Myocardial infarction Breast cancer Colorectal cancer Social History Smoking Status: Never smoker Tobacco Type: Cigarettes Age Started Using Tobacco: 10; Age Quit Using Tobacco: 48; packs per day: 2.5; Second Hand Exposure: Yes (hx); Do You Dip or Chew Tobacco: No; Hx Alcohol Use: No Hx Substance Use: No Preferred Language: Finnish Communication Ability: Effective Visual Impairment: No Limitations Otm Consultant Required: No Beliefs That Will Affect Care: None marital status: Current Living Situation: Family Current Living Situation Comment: and brother in law current occupational status: disabled Feels Safe at Home: Yes Childhood Exposure to Second-Hand Smoke: Yes Diet: DASH caffeine: Yes Seatbelt Use: always Sunscreen Use: No Assistive Devices: Cane, Glasses and Walker Review of Systems Review of Systems: The patient denies chest pain, palpitations, lower extremity swelling, sore throat, fevers, chills, sweats, nausea, vomiting, diarrhea , constipation, abdominal pain, pelvic pain, blood in urine or stool, lightheadedness, dizziness, headache, memory loss, loss of consciousness, rash, abnormal bruising or bleeding, imbalance, focal weakness, numbness or tingling in arms or legs, generalized arthralgias or myalgias,neck pain, or night sweats. The review of systems is otherwise negative other than for that already noted above, and at least 10 systems have been reviewed. Physical Exam Physical Exam: The patient is awake, alert and oriented 3, well developed and well nourished, normocephalic and atraumatic, lying in bed and in mild to moderate respiratory distress. HEENT--PERRL, EOMI, mucous membranes and oropharynx normal Neck--supple. No JVD. No bruits. Thyroid normal, trachea midline, no adenopathy. Heart--normal S1 and S2. No murmurs, rubs or gallops. Lungs-coarse breath sounds, with crackles at the bases bilaterally. No respiratory distress, no accessory muscle use. Abdomen--normal bowel sounds and soft. Nontender. Nondistended, no hernias or masses, no organomegaly. Extremities--no cyanosis or clubbing. No edema. Dermatologic--normal skin turgor, normal color, no abnormal lymph nodes, no rash. Neurologic--cranial nerves II through XII grossly intact. Rheumatologic--limited exam due to respiratory status Psychiatric--normal affect. Results & Data Results & Data Vital Signs (Past 12 Hours) Vital Signs Temp Pulse Pulse Resp BP BP Pulse Ox 12/05/24 20:15 82 27 H 136/76 92 12/05/24 20:00 85 30 H 92 12/05/24 19:45 75 34 H 114/63 95 12/05/24 19:41 72 12/05/24 19:24 75 32 H 98 12/05/24 19:08 93 12/05/24 19:03 36.8 C 88 22 91/55 L 89 L O2 Del Method O2 Flow Rate 12/05/24 20:15 Oxymask 6 12/05/24 20:00 Oxymask 6 12/05/24 19:45 Oxymask 6 12/05/24 19:41 12/05/24 19:24 Oxymask 6 12/05/24 19:08 Oxymask 6 12/05/24 19:03 Room Air Laboratory Results Laboratory Results WBC 16.30 K/ul (4.8-10.8) H 12/05/24 19:17 RBC 3.56 M/uL (4.70-6.10) L 12/05/24 19:17 Hgb 11.1 g/dl (14.0-18.0) L 12/05/24 19:17 Hct 34.3 % (42.0-52.0) L 12/05/24 19:17 MCV 96.3 fL (80.0-100.0) 12/05/24 19:17 MCH 31.2 pg (25.0-34.0) 12/05/24 19:17 MCHC 32.4 g/dL (32.0-36.0) 12/05/24 19:17 RDW Std Deviation 65.2 fL (36.4-46.3) H 12/05/24 19:17 RDW Coeff of Marce 18.4 % (11.5-14.5) H 12/05/24 19:17 Plt Count 238 K/uL (130-400) 12/05/24 19:17 MPV 11.2 fL (9.4-12.4) 12/05/24 19:17 Immature Gran % (Auto) 0.6 % 12/05/24 19:17 Neut % (Auto) 88.2 % 12/05/24 19:17 Lymph % (Auto) 2.7 % 12/05/24 19:17 [place] % (Auto) 8.0 % 12/05/24 19:17 Eos % (Auto) 0.1 % 12/05/24 19:17 Baso % (Auto) 0.4 % 12/05/24 19:17 Neut # (Auto) 14.39 K/uL (1.40-6.50) H 12/05/24 19:17 Lymph # (Auto) 0.44 K/uL (1.20-3.40) L 12/05/24 19:17 [place] # (Auto) 1.30 K/uL (0.11-0.59) H 12/05/24 19:17 Eos # (Auto) 0.02 K/uL (0.00-0.50) 12/05/24 19:17 Baso # (Auto) 0.06 K/uL (0.00-0.20) 12/05/24 19:17 Immature Gran # (Auto) 0.09 K/uL (0.01-0.20) 12/05/24 19:17 Sodium 134 mmol/L (136-145) L 12/05/24 19:17 Potassium 3.8 mmol/L (3.5-5.1) 12/05/24 19:17 Chloride 97 mmol/L (98-107) L 12/05/24 19:17 Carbon Dioxide 31 mmol/L (21-32) 12/05/24 19:17 Anion Gap 6 (3-11) 12/05/24 19:17 BUN 46 mg/dl (6-23) H 12/05/24 19:17 Creatinine 1.64 mg/dl (0.6-1.4) H 12/05/24 19:17 Est Cr Clr Drug Dosing Not Reportable 12/05/24 19:17 eGFR 44.44 12/05/24 19:17 BUN/Creatinine Ratio 28.0 (10-20) H 12/05/24 19:17 Glucose 171 mg/dl (70-99(Fasting)) H 12/05/24 19:17 Lactate 2.0 mmol/L (0.4-2.0) 12/05/24 19:17 Calcium 9.2 mg/dl (8.6-10.3) 12/05/24 19:17 Magnesium 2.2 mg/dl (1.7-2.4) 12/05/24 19:17 Total Bilirubin 0.8 mg/dl (0.2-1.0) 12/05/24 19:17 Direct Bilirubin 0.2 mg/dl (0-0.2) 12/05/24 19:17 AST 18 U/L (13-39) 12/05/24 19:17 ALT 13 U/L (7-52) 12/05/24 19:17 Alkaline Phosphatase 134 U/L (34-104) H 12/05/24 19:17 Troponin I High Sens 29.7 pg/ml (0-20) H 12/05/24 19:17 Total Protein 7.1 gm/dl (6.0-8.3) 12/05/24 19:17 Albumin 3.4 gm/dl (3.4-5.0) 12/05/24 19:17 Impressions Chest X-Ray 12/05/24 19:08 EXAM: Portable AP chest radiograph TECHNIQUE: AP portable radiograph of the chest was obtained. INDICATION: Sepsis Comparison: Chest radiograph September 07, 2024 FINDINGS: LINES and TUBES: None CARDIOVASCULAR: Cardiac silhouette is stably and mildly enlarged in size. Atherosclerosis of the thoracic aorta. LUNGS/PLEURA: No focal consolidation identified. Mild interstitial pulmonary edema and chronic interstitial lung changes. Left greater than right bibasilar densities may represent atelectasis or mild pneumonia. No significant pleural fluid. No discernible pneumothorax. OSSEOUS/OTHER: No displaced acute osseous process identified. IMPRESSION: Left greater than right bibasilar densities may represent atelectasis or mild pneumonia. Congestive changes of the cardiovascular system Electronically signed by William Dow 12-05-2024 8:12 PM Code Status & VTE Plan Code Status Full code VTE Prophylaxis Plan VTE Prophylaxis will be ordered: Yes PG Care Time/CCT Total # of Minutes Spent Total Time Spent with Patient: Total time spent is greater than 50% in coordination of care (as documented) at patient's floor/unit and/or counseling patient: Coding Level of Care Code 57305 INT INP/OBS CARE 3/75MIN Diagnoses Acute respiratory failure with hypoxia J96.01 Pneumonia J18.9 CHF exacerbation I50.9 Urinary retention due to benign prostatic hyperplasia N40.1; R33.8
[2024-12-05] MEDS: FUROSEMIDE 40 MG/4 ML VIAL IV STA (21:35)
--- NOTE | 2024-12-05 22:16 | Emergency Department Note ---
Impression & Plan Pneumonia, CHF (congestive heart failure) ED Provider Note CHIEF COMPLAINT: SOB HISTORY OF PRESENT ILLNESS: This 69 yo male patient Past medical history of COPD, atrial fibrillation, type 2 diabetes, heart failure, pulmonary hypertension PMR, urinary retention due to BPH presents to the emergency department with complaints of worsening shortness of breath. Patient has been sick over the last several days but tonight developed a temperature of 103. He has been taking Tylenol intermittently with some relief. Patient has been quite fatigued and sleeping more than usual. He denies any significant chest pain, vomiting or diarrhea. Patient is having some difficulty urinating. REVIEW OF SYSTEMS: A review of systems was performed with positives and pertinent negatives listed in the history of present illness. 10 systems were reviewed and are otherwise negative. ALLERGIES: see below MEDICATIONS: see below PMH: see below SOCIAL HISTORY: see below DDx: Pneumonia, UTI, dehydration, viral syndrome, aspiration, diverticulitis, acute coronary syndrome, PE among others per PHYSICAL EXAM: Vital signs reviewed. General: somewhat ill-appearing 69-year-old male, in no significant distress. HEENT: pale conjunctiva, PERRLA, neck is supple. Atraumatic Cardiovascular: Irregular but rate controlled Pulmonary: Clear to auscultation bilaterally, normal work of breathing. Abdomen: Soft, nontender, nondistended, positive bowel sounds. Musculoskeletal: Atraumatic, no peripheral edema. Neurologic: Patient awake alert and oriented x 3, speech is clear Skin: Warm, dry, no rash EMERGENCY DEPARTMENT COURSE/MDM: this patient was evaluated and appeared to be in no significant distress. IV access was obtained and laboratory work was drawn. The patient was placed on the laboratory monitor and noted to be in a rate controlled atrial fibrillation. He did have an oxygen requirement of 4 L on oxime mask. Chest x-ray was performed and reveals evidence of pulmonary vascular congestion. There is also concern for bibasilar atelectasis versus pneumonia. Patient has an elevated WBC, slightly elevated high-sensitivity troponin. Blood cultures were obtained. lactate is 2.0 with an elevated procalcitonin. Patient was medicated with IV cefepime and azithromycin. His breathing did worsen and he required a nonrebreather. After hospitalist evaluation, the patient was placed on BiPAP. Viral panel is negative. Patient and family were updated to the plan and agreed. MONITORING: An order for cardiac monitoring was placed and the patient is noted to be in a rate controlled atrial fibrillation 85 beats per minute. EKG to my interpretation reveals an atrial fibrillation at 90 bpm. Poor quality baseline. No evidence of ST elevation. No ectopy. RADIOLOGY: chest x-ray to my interpretation reveals pulmonary vascular congestion and bibasilar atelectasis DISPOSITION: admission Past Med/Surg History Problem List (Updated 12/06/24 @ 00:11 by Jennifer Rice MD) CHF (congestive heart failure) (Acute) Pneumonia (Acute) Urinary retention due to benign prostatic hyperplasia CHF exacerbation Pneumonia Acute respiratory failure with hypoxia PMR (polymyalgia rheumatica) Urinary frequency Trochanteric bursitis, right hip Periprosthetic fracture around internal prosthetic right hip joint (Acute) Peripheral neuropathy Pulmonary hypertension Diastolic heart failure (Chronic) (HFpEF) heart failure with preserved ejection fraction Type 2 diabetes mellitus (Acute) Status post right knee replacement (Acute) Hx of congestive heart failure Chronic atrial fibrillation (Acute) Taking Xarelto COPD (chronic obstructive pulmonary disease) Elevated bilirubin Right knee DJD Benign essential hypertension (Chronic) Chronic obstructive pulmonary disease (Chronic) Gout (Chronic) Hypercholesterolemia (Chronic) Medical History Encounter for pre-operative examination History of cor pulmonale Other secondary pulmonary hypertension Lumbar spinal stenosis DJD (degenerative joint disease) Hx of diabetic foot ulcer Venous insufficiency Osteoarthritis Diabetes Hyperlipidemia HTN (hypertension) Hx of gout History of COVID-19 (01/2023) AISHA (obstructive sleep apnea) Surgical History Hx of total knee replacement History of lumbar fusion (2008) Hx of cardiac catheterization (04/26/23) H/O total hip arthroplasty History of vasectomy Family History Mother Coronary heart disease Hypertension Diabetes Denies family history of Ovarian cancer Prostate cancer Myocardial infarction Breast cancer Colorectal cancer Social History Smoking Status: Never smoker Tobacco Type: Cigarettes Age Started Using Tobacco: 10; Age Quit Using Tobacco: 48; packs per day: 2.5; Second Hand Exposure: Yes (hx); Do You Dip or Chew Tobacco: No; Hx Alcohol Use: No Hx Substance Use: No Preferred Language: French Communication Ability: Effective Visual Impairment: No Limitations Band Manager Required: No Beliefs That Will Affect Care: None marital status: Current Living Situation: Family Current Living Situation Comment: and brother in law current occupational status: disabled Feels Safe at Home: Yes Childhood Exposure to Second-Hand Smoke: Yes Diet: DASH caffeine: Yes Seatbelt Use: always Sunscreen Use: No Assistive Devices: Cane, Glasses and Walker Allergies Allergies Allergy/AdvReac Type Severity Reaction Status Date / Time dicyclomine [From Bentyl] Allergy Unknown CAN'T Verified 12/05/24 20:29 REMEMBER Home Meds Home Medications Medication Instructions Recorded Confirmed acetaminophen 500 mg tablet 1,000 mg PO TID PRN pain 12/05/24 12/05/24 (Tylenol Extra Strength) Previous Rx's Medication Instructions Recorded albuterol sulfate 90 mcg/actuation 2 inh inhalation Q4H PRN shortness 03/18/23 breath activated powder inhaler of breath or wheezing #1 ea oxygen #2 ea 04/28/23 diltiazem HCl 180 mg 180 mg PO DAILY #90 caps 03/12/24 capsule,extended release 24 hr empagliflozin 10 mg tablet 10 mg PO QAM #30 tabs 03/12/24 (Jardiance) fluticasone fur. 100 mcg-umeclid 1 inh inhalation DAILY #60 ea 03/12/24 62.5 mcg-vilant 25 mcg inhalat.powder (Trelegy Ellipta) metformin 500 mg tablet 500 mg PO BID #180 tabs 03/12/24 rivaroxaban 20 mg tablet (Xarelto) 20 mg PO DAILY #30 tabs 03/12/24 allopurinol 300 mg tablet 300 mg PO BID #180 tabs 04/11/24 atorvastatin 10 mg tablet 10 mg PO QPM #90 tabs 04/11/24 furosemide 80 mg tablet 80 mg PO DAILY #180 tabs 04/11/24 metoprolol tartrate 100 mg tablet 100 mg PO BID #180 tabs 04/11/24 blood sugar diagnostic (OneTouch #100 ea 06/07/24 Ultra Test strips) lancets #100 ea 06/07/24 lisinopril 5 mg tablet 5 mg PO DAILY #90 tabs 06/07/24 duloxetine 30 mg capsule,delayed 30 mg PO DAILY #30 caps 12/03/24 release Results & Data (ED) Vital Signs Vital Signs - 24 hr 12/05/24 18:57 12/05/24 19:03 12/05/24 19:08 Temperature 36.8 C Temperature Source Oral Pulse Rate 88 Pulse Rate [Apical] Pulse Rate from SpO2 Sensor Pulse Rhythm Regular Pulse Strength Normal Respiratory Rate 22 Respiratory Effort / Characteristics Non-Labored Spontaneous Respiratory Depth Normal Respiratory Pattern Regular Blood Pressure 91/55 L Blood Pressure [Right Arm] Blood Pressure Mean 67 Blood Pressure Mean [Right Arm] Blood Pressure Position Sitting Pulse Oximetry 94 89 L 93 Oxygen Delivery Method Oxymask Room Air Oxymask Oxygen Flow Rate 6 6 Sepsis Recent Fever Within 48 Hours Yes Sepsis New/Unexplained Change in Mental Status No Sepsis Action Taken by Nursing No Action Required 12/05/24 19:24 12/05/24 19:41 12/05/24 19:45 Temperature Temperature Source Pulse Rate 75 72 75 Pulse Rate [Apical] Pulse Rate from SpO2 Sensor 84 86 Pulse Rhythm Pulse Strength Respiratory Rate 32 H 34 H Respiratory Effort / Characteristics Respiratory Depth Respiratory Pattern Blood Pressure 114/63 Blood Pressure [Right Arm] Blood Pressure Mean 80 Blood Pressure Mean [Right Arm] Blood Pressure Position Pulse Oximetry 98 95 Oxygen Delivery Method Oxymask Oxymask Oxygen Flow Rate 6 6 Sepsis Recent Fever Within 48 Hours Sepsis New/Unexplained Change in Mental Status Sepsis Action Taken by Nursing 12/05/24 20:00 12/05/24 20:15 Temperature Temperature Source Pulse Rate Pulse Rate [Apical] 85 82 Pulse Rate from SpO2 Sensor Pulse Rhythm Pulse Strength Respiratory Rate 30 H 27 H Respiratory Effort / Characteristics Spontaneous Spontaneous Respiratory Depth Respiratory Pattern Regular Regular Blood Pressure Blood Pressure [Right Arm] 136/76 Blood Pressure Mean Blood Pressure Mean [Right Arm] 96 Blood Pressure Position Pulse Oximetry 92 92 Oxygen Delivery Method Oxymask Oxymask Oxygen Flow Rate 6 6 Sepsis Recent Fever Within 48 Hours Sepsis New/Unexplained Change in Mental Status Sepsis Action Taken by Long-Term Medications Current Medication List: was personally reviewed by me Laboratory Data Attestation: I reviewed the patient's lab results. 12/05/24 19:17 12/05/24 19:17 Lab Results 12/05/24 Range/Units 19:17 WBC 16.30 H (4.8-10.8) K/ul RBC 3.56 L (4.70-6.10) M/uL Hgb 11.1 L (14.0-18.0) g/dl Hct 34.3 L (42.0-52.0) % MCV 96.3 (80.0-100.0) fL MCH 31.2 (25.0-34.0) pg MCHC 32.4 (32.0-36.0) g/dL RDW Std Deviation 65.2 H (36.4-46.3) fL RDW Coeff of Marce 18.4 H (11.5-14.5) % Plt Count 238 (130-400) K/uL MPV 11.2 (9.4-12.4) fL Immature Gran % (Auto) 0.6 % Neut % (Auto) 88.2 % Lymph % (Auto) 2.7 % Bond % (Auto) 8.0 % Eos % (Auto) 0.1 % Baso % (Auto) 0.4 % Neut # (Auto) 14.39 H (1.40-6.50) K/uL Lymph # (Auto) 0.44 L (1.20-3.40) K/uL Bond # (Auto) 1.30 H (0.11-0.59) K/uL Eos # (Auto) 0.02 (0.00-0.50) K/uL Baso # (Auto) 0.06 (0.00-0.20) K/uL Immature Gran # (Auto) 0.09 (0.01-0.20) K/uL Sodium 134 L (136-145) mmol/L Potassium 3.8 (3.5-5.1) mmol/L Chloride 97 L (98-107) mmol/L Carbon Dioxide 31 (21-32) mmol/L Anion Gap 6 (3-11) BUN 46 H (6-23) mg/dl Creatinine 1.64 H (0.6-1.4) mg/dl Est Cr Clr Drug Dosing Not Reportable eGFR 44.44 BUN/Creatinine Ratio 28.0 H (10-20) Glucose 171 H (70-99(Fasting)) mg/dl Lactate 2.0 (0.4-2.0) mmol/L Calcium 9.2 (8.6-10.3) mg/dl Magnesium 2.2 (1.7-2.4) mg/dl Total Bilirubin 0.8 (0.2-1.0) mg/dl Direct Bilirubin 0.2 (0-0.2) mg/dl AST 18 (13-39) U/L ALT 13 (7-52) U/L Alkaline Phosphatase 134 H (34-104) U/L Troponin I High Sens 29.7 H (0-20) pg/ml Total Protein 7.1 (6.0-8.3) gm/dl Albumin 3.4 (3.4-5.0) gm/dl Procalcitonin 2.22 H (0-0.5) ng/ml Administered Medications Discontinued Medications Furosemide (Furosemide 40 Mg/4 Ml Vial) 40 mg IV ONE ONE Stop: 12/05/24 20:29 Last Admin: 12/05/24 21:13 Dose: 40 mg Documented By: MARTITA Furosemide (Furosemide 40 Mg/4 Ml Vial) 40 mg IV ONE STA Stop: 12/05/24 21:15 Last Admin: 12/05/24 21:35 Dose: 40 mg Documented By: MARTITA Cefepime HCl (Maxipime 2000mg) 2,000 mg in 20 mls @ 5 mls/min IV NOW STA; Protocol Stop: 12/05/24 19:11 Last Admin: 12/05/24 19:27 Dose: 5 mls/min Documented By: MISTY Azithromycin (Zithromax) 500 mg in 255 mls @ 127.5 mls/hr IV NOW ONE Stop: 12/05/24 22:26 Last Admin: 12/05/24 22:58 Dose: 127.5 mls/hr Documented By: MARTITA Methylprednisolone (Methylprednisolone 125 Mg/2 Ml Vial) 125 mg IV NOW STA Stop: 12/05/24 21:02 Last Admin: 12/05/24 21:12 Dose: 125 mg Documented By: MARTITA Imaging Data Radiologist's Impression: Chest X-Ray 12/05/24 19:08 EXAM: Portable AP chest radiograph TECHNIQUE: AP portable radiograph of the chest was obtained. INDICATION: Sepsis Comparison: Chest radiograph September 07, 2024 FINDINGS: LINES and TUBES: None CARDIOVASCULAR: Cardiac silhouette is stably and mildly enlarged in size. Atherosclerosis of the thoracic aorta. LUNGS/PLEURA: No focal consolidation identified. Mild interstitial pulmonary edema and chronic interstitial lung changes. Left greater than right bibasilar densities may represent atelectasis or mild pneumonia. No significant pleural fluid. No discernible pneumothorax. OSSEOUS/OTHER: No displaced acute osseous process identified. IMPRESSION: Left greater than right bibasilar densities may represent atelectasis or mild pneumonia. Congestive changes of the cardiovascular system Electronically signed by William Dow 12-05-2024 8:12 PM Discharge Plan Visit Data Chief Complaint: Shortness of Breath/Dyspnea Stated Complaint: FEVER TROUBLE BREATHING LEG PAIN ED Provider: Jennifer Rice Discharge Problem: Pneumonia, CHF (congestive heart failure) Patient Disposition: Admitted As Inpatient Condition: Critical Discharge Problem: Pneumonia Qualifiers: Pneumonia type: due to unspecified organism Laterality: unspecified laterality Lung location: unspecified part of lung Qualified Code(s): J18.9 - Pneumonia, unspecified organism CHF (congestive heart failure) Qualifiers: Heart failure type: unspecified Heart failure chronicity: acute on chronic Q ualified Code(s): I50.9 - Heart failure, unspecified
[2024-12-05 22:21] LABS: Appearance Urine Clear (Clear); Bacteria Urine Automated 4+ (None Seen); Glucose Urine UA 2+ (Negative); RBC Urine Automated >20 /hpf (0-2); WBC Urine Automated >50 /hpf (0-5)
[2024-12-05 22:36] LABS: Chlamydia pneumoniae PCR Not Detected (NotDetected); Coronavirus 229E PCR Not Detected (NotDetected); Coronavirus CoV-2 (COVID19)PCR Not Detected (NotDetected); Coronavirus HKU1 PCR Not Detected (NotDetected); Coronavirus NL63 PCR Not Detected (NotDetected); Coronavirus OC43PCR Not Detected (NotDetected); Human Metapneumovirus PCR Not Detected (NotDetected); Parainfluenza Virus 1 PCR Not Detected (NotDetected); Parainfluenza Virus 2 PCR Not Detected (NotDetected); Parainfluenza Virus 3 PCR Not Detected (NotDetected); Parainfluenza Virus 4 PCR Not Detected (NotDetected); Respiratory Syncytial VirusPCR Not Detected (NotDetected); Rhinovirus/Enterovirus PCR Not Detected (NotDetected)
[2024-12-05 22:39] LABS: iSTAT Art Bld Gas Base Excess 4.0 mmol/L (-9-1.8); iSTAT Art Bld Gas pCO2 Correct 40 mmHg (35-46); iSTAT Art Bld Gas pH Corrected 7.450 (7.35-7.45); iSTAT Arterial Blood Gas pO2 C 92
[2024-12-05] MEDS: AZITHROMYCIN 500 MG/255 ML BAG IV ONE (22:58)
--- NOTE | 2024-12-05 23:21 | Billing Data ---
Date of Service December 05, 2024 Coding Level of Care Code 16356 CRITICAL CARE 1ST 30-74M Time Spent (min) 45 Comment Placed patient on BiPAP, ordered and interpreted ABG, communicated with and daughter
[2024-12-05] MEDS ORDERED: ACETAMINOPHEN 1,000 MG/100 ML VIAL IV PRN (23:50)
[2024-12-05] MEDS ORDERED: DEXTROSE 50% 50 ML SYRINGE IV PRN (23:50)
[2024-12-05] MEDS ORDERED: GLUCAGON FOR INJ 1 MG VIAL SQ PRN (23:50)
[2024-12-05] MEDS ORDERED: GLUCOSE 10 TAB/TUBE PO PRN (23:50)
[2024-12-05] MEDS ORDERED: ALBUTEROL HFA 8 GM INHALER INH PRN (23:55)
[2024-12-06] MEDS: METOPROLOL TARTRATE 100 MG TAB PO SCH (00:39)
[2024-12-06] MEDS: ATORVASTATIN 10 MG TAB PO SCH (00:39)
[2024-12-06] MEDS: ACETAMINOPHEN 500 MG TAB PO PRN (06:09)
[2024-12-06] MEDS: ALBUT/IPRATROP 3MG/0.5MG NEB 3 ML VIAL NEB SCH (06:58)
[2024-12-06 07:01] LABS: Hematocrit (blood only) 31.4 % (42.0-52.0); Hemoglobin 10.7 g/dl (14.0-18.0); Mean Corpuscular Hemoglobin 32.1 pg (25.0-34.0); Mean Corpuscular Volume 94.3 fL (80.0-100.0); Platelet Count 214 K/uL (130-400); RDW Standard Deviation 61.3 fL (36.4-46.3); Red Blood Count 3.33 M/uL (4.70-6.10); White Blood Count 17.47 K/ul (4.8-10.8)
[2024-12-06 07:29] LABS: INR 1.6 (0.9-1.1); Partial Thromboplastin Time 40 Seconds (21-31); Prothrombin Time 16.2 Seconds (9.0-12.0)
[2024-12-06 07:30] LABS: Hemoglobin A1C 6.7 % (4.5-5.6)
[2024-12-06 07:32] LABS: Alanine Aminotransferase 12.0 U/L (7-52); Albumin Globulin Ratio 0.9 (0.9-2); Albumin Level 2.9 gm/dl (3.4-5.0); Alkaline Phosphatase 121.0 U/L (34-104); Anion Gap 8.0 (3-11); Bilirubin,Total 0.7 mg/dl (0.2-1.0); Blood Urea Nitrogen 43.0 mg/dl (6-23); Calcium 9.0 mg/dl (8.6-10.3); Carbon Dioxide 31.0 mmol/L (21-32); Chloride 98.0 mmol/L (98-107); Cholesterol 77.0 mg/dl (0-200); Creatinine Clr Calc Pharmacy 63.8 ml/min; Globulin 3.4 gm/dl (2.5-4.0); Glucose 193.0 mg/dl (70-99(Fasting)); HDL Cholesterol 29.0 mg/dl; Magnesium 2.2 mg/dl (1.7-2.4); Potassium 4.0 mmol/L (3.5-5.1); Sodium 137.0 mmol/L (136-145); Total Protein 6.3 gm/dl (6.0-8.3); Triglycerides 49.0 mg/dl (0-150)
[2024-12-06 07:36] LABS: Immature Granulocytes # (auto) 0.09 K/uL (0.01-0.20); Immature Granulocytes % (auto) 0.5 %; Polychromasia 1+
[2024-12-06] MEDS ORDERED: methylPREDNISolone 10 mg/mL (For Ped Dose < 7mg) IV SCH (08:00)
[2024-12-06] MEDS: CEFEPIME 2000MG 2,000 MG/20 ML SYR IV SCH ×2 (08:11→16:09)
[2024-12-06] MEDS: EMPAGLIFLOZIN 10 MG TAB PO SCH (08:12)
[2024-12-06] MEDS: FLUTICASONE FUROATE 100MCG 14 PUFFS/INHALER INH SCH (08:13)
[2024-12-06] MEDS: PANTOprazole 40 MG/10 ML SYR IV SCH (08:14)
[2024-12-06] MEDS: FUROSEMIDE 40 MG/4 ML VIAL IV SCH (08:14)
[2024-12-06] MEDS: UMECLIDINIUM/VILANTEROL 62.5/25MCG 7 PUFFS/INHALER INH SCH (08:15)
[2024-12-06] MEDS: RIVAROXABAN 20 MG TAB PO SCH (08:15)
[2024-12-06] MEDS: INSULIN ASPART PER UNIT CHARGE SC SCH (08:15)
[2024-12-06] MEDS ORDERED: NON-FORMULARY MEDICATION (Fluticasone-Umeclidin-Vilanter [Trelegy Ellipta] 100-62.5-25 mcg INH SCH (09:00)
[2024-12-06 14:11] LABS: BldCult Id GramSt Discrep Comm Discrepant
[2024-12-06] MEDS ORDERED: PHARMACY GLYCEMIC MGMT CONSULT PRN (14:34)
[2024-12-06] MEDS ORDERED: VANCOMYCIN CONSULT ACTIVE PRN (14:34)
--- NOTE | 2024-12-06 14:39 | Hospitalist Progress Note ---
Date of Service December 06, 2024 Assessment & Plan (1) Acute respiratory failure with hypoxia: (2) Pneumonia: (3) CHF exacerbation: (4) Urinary retention due to benign prostatic hyperplasia: Plan The patient is a 69-year-old male presents to the ER with shortness of breath for 4 days with fever and hypoxia. Patient typically wears BiPAP at home but on room air at baseline. Gram positive cocci clusters (presumably staph) bacteremia Awaiting full identification as PCR discrepant and sensitivities Will add vancomycin pending full identification although noted MRSA swab negative Repeat blood cultures in AM No vegetation seen on echocardiogram #Acute respiratory failure with hypoxia/ acute HFpEF exacerbation/pneumonia/chronic BiPAP- Continue BiPAP HS Treating CHF and pneumonia (suspect mostly the latter causing his symptoms with positive procalcitonin) Continue cefepime + azithromycin (switched to PO), added vancomycin as above I do not believe he ever met criteria for He met minor criteria for severe pneumonia on admission therefore will continue on solu-medrol but reduce dose to 40mg daily for total 5 days, however no wheezing noted today, on ER or admission exam to suggest COPD exacerbation Re-dose furosemide daily pending labs, I&Os, daily weights but do not 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 Continue Trelegy Ellipta MRSA swab pending #Type 2 Diabetes mellitus- Hold metformin Continue Jardiance HbA1C 6.7 Suspect hyperglycemic today due to steroid use and will consult pharmacy to help with glycemic control during his hospitalization #BPH with urinary retention- Placed Watson catheter in the ED Patient reports that outpatient feeling as duloxetine has been contributing, and is presently on a tapering schedule. Continue current duloxetine dosing Start tamsulosin - discussed with his PCP per patient #Hyperlipidemia Continue atorvastatin Check a fasting lipid panel #Neuropathy Is presently on tapering schedule duloxetine due to concerns regarding exacerbation of urinary retention #Chronic gout Continue allopurinol VTE Prophylaxis - Xarelto Disposition - continue on PCU Admission and Anticipated Discharge Date Admission Date: December 05, 2024 Subjective Patient feels much improved. On room air at baseline and currently needing 7LPM O2 oxymask but much less short of breath. No chest pain, back pain. Skin tear on left arm from EKG sticker and hitting his elbow on bed but this was not present prior to coming to the ER. No prior history of MRSA. Physical Exam Constitutional: WD/WN, vitals as above Respiratory: normal respiratory effort, lungs clear to auscultation Cardiovascular: Rate/Rhythm: regular rate and + irregularly irregular Heart Sounds: no murmur Extremities: normal capillary refill; no calf tenderness Gastrointestinal (Abdomen): normal bowel sounds, soft, nontender, no hepatosp lenomegaly Musculoskeletal: no cyanosis or clubbing, extremities motor strength 5/5 Skin: skin tear x2 without surrounding cellulitis on left elbow and forearm Neurologic: moves all extremities and awake; not confused Psychiatric: A+Ox3, euthymic affect Results & Data Results & Data Vital Signs (Past 12 Hours) Vital Signs Temp Pulse Pulse Resp BP Pulse Ox O2 Del Method 12/06/24 13:56 82 16 95 Nasal Cannula 12/06/24 11:27 94 Nasal Cannula 12/06/24 10:26 36.7 C 94 H 18 102/71 93 Nasal Cannula 12/06/24 10:15 Nasal Cannula 12/06/24 10:15 Nasal Cannula 12/06/24 09:58 102 H 18 96 Nasal Cannula 12/06/24 08:00 36.7 C 118 H 24 114/79 97 Nasal Cannula 12/06/24 07:49 94 Nasal Cannula 12/06/24 07:34 92 H 12/06/24 06:59 90 16 100 Oxymask 12/06/24 04:35 37.1 C 90 20 108/68 98 BiPAP 12/06/24 03:23 95 H 18 95 O2 Flow Rate FiO2 12/06/24 13:56 3 12/06/24 11:27 3 12/06/24 10:26 2 12/06/24 10:15 12/06/24 10:15 5 12/06/24 09:58 4 12/06/24 08:00 6 12/06/24 07:49 6 12/06/24 07:34 12/06/24 06:59 8 12/06/24 04:35 12/06/24 03:23 28 PG Care Time/CCT Total # of Minutes Spent Total Time Spent with Patient: Total time spent is greater than 50% in coordination of care (as documented) at patient's floor/unit and/or counseling patient: Coding Level of Care Code 48910 SUB INP/OBS CARE 350MIN Diagnoses Acute respiratory failure with hypoxia J96.01 Pneumonia J18.9 CHF exacerbation I50.9 Urinary retention due to benign prostatic hyperplasia N40.1; R33.8
[2024-12-06] MEDS: VANCOMYCIN HCL 2,000 MG in SODIUM CHLORIDE 0.9% 500 ML IV ONE (15:04)
--- NOTE | 2024-12-06 15:28 | Pharmacy Report ---
Pharmacy Glycemic Short Note 2 - Date of Service December 06, 2024 - Glycemic Short BSG Results (Last 24 hours): 12/05/24 12/06/24 12/06/24 19:17 00:18 06:05 Glucose 171 H 193 H POC Glucose 166 H 12/06/24 12/06/24 07:18 11:20 Glucose POC Glucose 183 H 233 H OUTPATIENT ANTIDIABETIC REGIMEN: * Empagliflozin * Metformin * HbA1c 6.7% on 12/06/24 ASSESSMENT: * 69 yo M with well-controlled T2DM per above HbA1c on two oral agents admitted yesterday evening with CHF exacerbation, possible HAP, and now GPC bacteremia * Hyperglycemia likely 2nd stressors above, plus two doses of methylprednisolone received 15 PM and 12/06 AM. No ongoing steroids ordered. * Will tighten CHO ratio 2nd steroids * Will initiate low-dose Lantus again 2nd steroids, although this may or may not be needed ongoing now that steroids have not been continued PLAN FOR INPATIENT GLYCEMIC CONTROL: * * Hold outpatient metformin, but continue empagliflozin (due to dual diagnosis of heart failure) * Basal insulin * Lantus 15 units SQ x1 * Bolus insulin * NovoLog per scale ACHS or Q6hrs while NPO * Goal Range: Low 100 mg/dL - High 140 mg/dL * Correction Factor: 20 mg/dL/unit * Nutritional / Prandial insulin per carb ratio of 1 unit per 7 grams CHO consumed
--- NOTE | 2024-12-06 15:39 | Pharmacy Report ---
Pharmacy PK ABX Note - Date of Service December 06, 2024 - Assessment and Plan Assessment * 69 year old M receiving cefepime, azithromycin, and vancomycin for treatment of GPC bacteremia, possibly 2nd HAP. * Pertinent microbiologic data includes: 2/2 blood cultures with GPC in clusters noted. BCID2 performed, but results discrepant therefore not reported * SCr trending down today from 1.6 to 1.4 mg/dL, although still above baseline of ~1.1 mg/dL. Will dose via level and obtain a random level about 16 hours after the load Plan Vancomycin * Loading dose: 2000 mg IV x 1 * Target AUC/JIM of 400-600 mg/L.hr, if/when renal function stabilizes * Random level ordered for 10/16 AM, at/prior to 0700 Pharmacy will continue to follow and will adjust dose/frequency as necessary. Thank you. Pharmacy has transitioned to AUC monitoring for vancomycin. AUC/JIM is the preferred PK/PD target and is associated with decreased risk of nephrotoxicity compared to traditional trough targets.
[2024-12-06] MEDS: LANTUS PER UNIT CHARGE SC ONE (16:09)
--- NOTE | 2024-12-06 16:20 | XCELERA ---
[id number]
[2024-12-06] MEDS: POLYETHYLENE (MIRALAX) 17 GM PACK PO PRN (17:21)
[2024-12-06] MEDS ORDERED: AZITHROMYCIN 500 MG/255 ML BAG IV SCH (20:00)
[2024-12-06] MEDS: AZITHROMYCIN 250 MG TAB PO SCH (20:22)
[2024-12-06] MEDS: TAMSULOSIN HCL 0.4 MG CAP PO SCH (20:22)
[2024-12-07 06:14] LABS: Alanine Aminotransferase 11.0 U/L (7-52); Albumin Globulin Ratio 0.8 (0.9-2); Albumin Level 2.9 gm/dl (3.4-5.0); Alkaline Phosphatase 123.0 U/L (34-104); Anion Gap 9.0 (3-11); Bilirubin,Total 0.6 mg/dl (0.2-1.0); Blood Urea Nitrogen 54.0 mg/dl (6-23); Calcium 9.4 mg/dl (8.6-10.3); Carbon Dioxide 30.0 mmol/L (21-32); Chloride 99.0 mmol/L (98-107); Creatinine Clr Calc Pharmacy 63.3 ml/min; Globulin 3.7 gm/dl (2.5-4.0); Glucose 165.0 mg/dl (70-99(Fasting)); Magnesium 2.4 mg/dl (1.7-2.4); Potassium 4.0 mmol/L (3.5-5.1); Sodium 138.0 mmol/L (136-145); Total Protein 6.6 gm/dl (6.0-8.3)
[2024-12-07 06:47] LABS: Hematocrit (blood only) 31.8 % (42.0-52.0); Hemoglobin 10.8 g/dl (14.0-18.0); Mean Corpuscular Hemoglobin 31.9 pg (25.0-34.0); Mean Corpuscular Volume 93.8 fL (80.0-100.0); Platelet Count 248 K/uL (130-400); RDW Standard Deviation 62.3 fL (36.4-46.3); Red Blood Count 3.39 M/uL (4.70-6.10); White Blood Count 22.46 K/ul (4.8-10.8)
[2024-12-07 07:06] LABS: Immature Granulocytes # (auto) 0.14 K/uL (0.01-0.20); Immature Granulocytes % (auto) 0.6 %
[2024-12-07] MEDS: LANTUS PER UNIT CHARGE SC SCH (08:30)
[2024-12-07] MEDS: VANCOMYCIN HCL / NSS 1,000 MG/270 ML BAG IV SCH (09:16)
--- NOTE | 2024-12-07 10:30 | Pharmacy Report ---
Pharmacy Glycemic Short Note 2 - Date of Service December 07, 2024 - Glycemic Short BSG Results (Last 24 hours): 12/06/24 12/06/24 12/06/24 11:20 16:20 19:50 Glucose POC Glucose 233 H 153 H 198 H 12/07/24 12/07/24 05:28 07:21 Glucose 165 H POC Glucose 150 H OUTPATIENT ANTIDIABETIC REGIMEN: * Empagliflozin 10 mg PO AM * Metformin 500 mg PO BID * HbA1c 6.7% on 12/06/24 ASSESSMENT: 12/07: * Madhu received 41 units of insulin yesterday, 15 of which were basal. BSGs were: 331-202-725-198 mg/dL. * Fasting BSG this AM is improved but slightly above goal at 150 mg/dL. Given patient remains on steroids in the form of SoluMedrol 40 mg IV AM, will plan to increase basal by 20% today. * Some postprandial hyperglycemia yesterday. Will tighten Novolog to reflect weight/stress of 3. Opting for tighter glycemic control with BSG goal of 110- 140 mg/dL given bacteremia. * Remains on Jardiance 10 mg PO daily. Continue holding metformin. Abx include Vancomycin, Cefepime and PO Azithromycin. 12/06: * 69 yo M with well-controlled T2DM per above HbA1c on two oral agents admitted yesterday evening with CHF exacerbation, possible HAP, and now GPC bacteremia * Hyperglycemia likely 2nd stressors above, plus two doses of methylprednisolone received 10/15 PM and 1016 AM. No ongoing steroids ordered. * Will tighten CHO ratio 2nd steroids * Will initiate low-dose Lantus again 2nd steroids, although this may or may not be needed ongoing now that steroids have not been continued PLAN FOR INPATIENT GLYCEMIC CONTROL: * Hold outpatient metformin, but continue empagliflozin (due to dual diagnosis of heart failure) * Basal insulin * Lantus 18 units SC daily * Bolus insulin * NovoLog per scale ACHS or Q6hrs while NPO * Goal Range: Low 110 mg/dL - High 140 mg/dL * Correction Factor: 15 mg/dL/unit * Nutritional / Prandial insulin per carb ratio of 1 unit per 5 grams CHO consumed
--- NOTE | 2024-12-07 10:43 | Pharmacy Report ---
Pharmacy PK ABX Note - Date of Service December 07, 2024 - Assessment and Plan Assessment 12/07: * Patient remains afebrile. SCr 1.41 mg/dL today, CrCl 63 mL/min. White count increased slightly to 22.5k. * 12/05 blood cultures with Gram Positive Cocci in clusters (indicative of like ly staph species) in 3/4 bottles, still prelim. BCID2 discrepant. Await further identification. Surveillance cultures ordered this AM. Despite UA being concerning for infection, less than 1,000 colonies reported in prelim culture. * Source is considered to be HAP at this time. * Random level after loading dose was 9.9 mcg/mL this AM. Will order vancomycin scheduled ongoing today. 12/06: * 69 year old M receiving cefepime, azithromycin, and vancomycin for treatment of GPC bacteremia, possibly 2nd HAP. * Pertinent microbiologic data includes: 2/ blood cultures with GPC in clusters noted. BCID2 performed, but results discrepant therefore not reported * SCr trending down today from 1.6 to 1.4 mg/dL, although still above baseline of ~1.1 mg/dL. Will dose via level and obtain a random level about 16 hours after the load Plan Vancomycin * Patient received an ~20 mg/kg Vancomycin loading dose of 2000 mg at 1504 yesterday. No other vancomycin doses received due to possible CHLOE. * Random level obtained 12/07/24 resulted as 9.9 mcg/mL. * Will order ongoing maintenance dose of 1000 mg IV every 12 hours to start at 8 AM today. This regimen is on the aggressive side given bacteremia. The predicted AUC at steady state is 623 mg/L.hr with a 56% probability of trough being > 20 mcg/mL. However, this regimen will attain a 24-hr AUC/JIM > 400 mcg/mL which is appropriate given bacteremia/severity of illness. Will order an early level for tomorrow to closely monitor for toxicity. If SCr does not improve in the next 24-48 hours, then would be appropriate to back off on vancomycin dosing to avoid toxicity. * Repeat random level ordered for: 12/08/24 Cefepime * 2000 mg IV every 8 hours - appropriate per renal function Azithromycin * 500 mg PO PM - Day #2 of 3 Pharmacy will continue to follow and will adjust dose/frequency as necessary. Thank you. Pharmacy has transitioned to AUC monitoring for vancomycin. AUC/JIM is the preferred PK/PD target and is associated with decreased risk of nephrotoxicity compared to traditional trough targets.
--- NOTE | 2024-12-07 11:36 | Hospitalist Progress Note ---
Date of Service December 07, 2024 Assessment & Plan (1) Acute respiratory failure with hypoxia: (2) Pneumonia: (3) CHF exacerbation: (4) Urinary retention due to benign prostatic hyperplasia: Plan The patient is a 69-year-old male presents to the ER with shortness of breath for 4 days with fever and hypoxia. Patient typically wears BiPAP 17/ at home but on room air at baseline. #Gram positive cocci clusters (presumably staph) bacteremia Awaiting full identification as PCR discrepant and sensitivities Will add vancomycin pending full identification although noted MRSA swab negative Repeat blood cultures ordered this AM--pending No vegetation seen on echocardiogram #Acute respiratory failure with hypoxia/ acute HFpEF exacerbation/pneumonia/chronic BiPAP- Continue BiPAP HS Treating CHF and pneumonia (suspect mostly the latter causing his symptoms with positive procalcitonin) Continue cefepime + azithromycin (switched to PO), added vancomycin as above He met minor criteria for severe pneumonia on admission therefore will continue on solu-medrol but reduce dose to 40mg daily for total 5 days, however no wheezing noted today, on ER or admission exam to suggest COPD exacerbation Re-dose furosemide daily pending labs, I&Os, daily weights but do not suspect 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 Continue Trelegy Ellipta MRSA swab pending #Type 2 Diabetes mellitus- Hold metformin Continue Jardiance HbA1C 6.7 Suspect hyperglycemic today due to steroid use and will consult pharmacy to help with glycemic control during his hospitalization #BPH with urinary retention- Placed Watson catheter in the ED Patient reports that outpatient feeling as duloxetine has been contributing, and is presently on a tapering schedule. Continue current duloxetine dosing Start tamsulosin - discussed with his PCP per patient #Hyperlipidemia Continue atorvastatin Check a fasting lipid panel #Neuropathy Is presently on tapering schedule duloxetine due to concerns regarding exacerbation of urinary retention #Chronic gout Continue allopurinol VTE Prophylaxis - Xarelto Disposition - continue on PCU Admission and Anticipated Discharge Date Admission Date: December 05, 2024 Supervising Physician Co-Signing Physician Notes I verified all gillette points and agree with Mireya Butler PA-C with the following exceptions and/or additions: None Subjective Madhu is a pleasant 69 yo M who was seen today on daily rounds. He is sitting in the chair and offers no complaints. He reports his breathing is stable. Denies cough, fever or chills, or chest pain. Review of Systems 2 Review of Systems: All systems reviewed and are unremarkable except as noted in HPI and below. Denies fever, chills, fatigue, headache, nasal congestion, sore throat, cough, chest pain, palpitations, orthopnea, PND, abdominal pain, n/v/d, constipation, dysuria, hematuria, frequency, back pain, joint pain or swelling, easy bruising or bleeding, skin lesions or rashes. Physical Exam 2 Physical Exam: GENERAL: 69 yo WN elderly WM. Awake, alert, oriented. No distress. LUNGS: Clear to auscultation bilaterally. Decreased in RLL. No rhonchi or wheezing present. CARDIOVASCULAR: Regular rate and rhythm. : Watson in place, no gross sediment EXTREMITIES: No edema. Non-tender. Peripheral pulses +2/4. Results & Data Results & Data Vital Signs (Past 12 Hours) Vital Signs Temp Pulse Pulse Resp BP Pulse Ox O2 Del Method 12/07/24 10:27 80 16 96 Nasal Cannula 12/07/24 09:53 Nasal Cannula 12/07/24 08:12 36.5 C 107 H 19 108/78 92 Nasal Cannula 12/07/24 07:14 91 H 12/07/24 07:07 99 H 21 92 Oxymask 12/07/24 03:02 36.9 C 85 18 127/73 91 Oxymask O2 Flow Rate 12/07/24 10:27 5 12/07/24 09:53 5 12/07/24 08:12 6 12/07/24 07:14 12/07/24 07:07 6 12/07/24 03:02 6 Laboratory Results 12/07/24 05:28 12/07/24 05:28 PG Care Time/CCT Total # of Minutes Spent Total Time Spent with Patient: Total time spent is greater than 50% in coordination of care (as documented) at patient's floor/unit and/or counseling patient: 50 minutes Coding Level of Care Code 55436 SUB INP/OBS CARE 3/50MIN Diagnoses Acute respiratory failure with hypoxia J96.01 Pneumonia J18.9 CHF exacerbation I50.9 Urinary retention due to benign prostatic hyperplasia N40.1; R33.8
[2024-12-07 14:33] LABS: A calco-baum cmplx NotReported Not Detected (NotDetected); Bact fragilis Not Reported DETECTED (NotDetected); Blood Culture Id Panel See PCR Comment (NotDetected); C auris Not Reported Not Detected (NotDetected); Calbicans Not Reported Not Detected (NotDetected); Candida glabrata Not Reported Not Detected (NotDetected); Candida krusei Not Reported Not Detected (NotDetected); Cneoformans/gatti Not Reported Not Detected (NotDetected); Cparapsilosis Not Reported Not Detected (NotDetected); Ctropicalis Not Reported Not Detected (NotDetected); E cloacae compx Not Reported Not Detected (NotDetected); Efaecalis Not Reported Not Detected (NotDetected); Efaecium Not Reported Not Detected (NotDetected); Enterobacterales Not Reported Not Detected (NotDetected); Escherichia coli Not Reported Not Detected (NotDetected); H influenzae Not Reported Not Detected (NotDetected); K aerogenes Not Reported Not Detected (NotDetected); Koxytoca Not Reported Not Detected (NotDetected); Kpneumoniae grp Not Reported Not Detected (NotDetected); Lmonocyt Not Reported Not Detected (NotDetected); N meningitidis Not Reported Not Detected (NotDetected); P aeruginosa Not Reported Not Detected (NotDetected); Proteus spp Not Reported Not Detected (NotDetected); Salmonella spp Not Reported Not Detected (NotDetected); Staph lugdunensis Not Reported Not Detected (NotDetected); Staph spp. Not Reported DETECTED (NotDetected); Staphaureus Not Reported DETECTED (NotDetected); Staphepi Not Reported Not Detected (NotDetected); Staphylococcus spp. DETECTED (NotDetected); Stenmaltophilia Not Reported Not Detected (NotDetected); Strep agal(GrpB) Not Reported Not Detected (NotDetected); Strep pneum Not Reported Not Detected (NotDetected); Strep pyog (GrpA) Not Reported Not Detected (NotDetected); Strep spp Not Reported Not Detected (NotDetected)
[2024-12-07 15:36] LABS: Bacteroides fragilis DETECTED (NotDetected); mecAC+MREJ Resistant Gene MRSA Not Detected (NotDetected)
[2024-12-07] MEDS: CARBOHYDRATES FOR HYPOGLYCEMIA PO PRN (16:20)
[2024-12-07] MEDS: GLUCOSE 40% GEL 15 GM TUBE PO PRN (16:22)
[2024-12-08 06:56] LABS: Hematocrit (blood only) 31.8 % (42.0-52.0); Hemoglobin 10.9 g/dl (14.0-18.0); Mean Corpuscular Hemoglobin 31.9 pg (25.0-34.0); Mean Corpuscular Volume 93.0 fL (80.0-100.0); Platelet Count 245 K/uL (130-400); RDW Standard Deviation 61.6 fL (36.4-46.3); Red Blood Count 3.42 M/uL (4.70-6.10); White Blood Count 18.75 K/ul (4.8-10.8)
[2024-12-08] MEDS ORDERED: VANCOMYCIN LEVEL ONE (07:00)
[2024-12-08 07:20] LABS: Alanine Aminotransferase 15.0 U/L (7-52); Albumin Globulin Ratio 0.8 (0.9-2); Albumin Level 2.8 gm/dl (3.4-5.0); Alkaline Phosphatase 112.0 U/L (34-104); Anion Gap 8.0 (3-11); Bilirubin,Total 0.5 mg/dl (0.2-1.0); Blood Urea Nitrogen 63.0 mg/dl (6-23); Calcium 9.6 mg/dl (8.6-10.3); Carbon Dioxide 29.0 mmol/L (21-32); Chloride 99.0 mmol/L (98-107); Creatinine Clr Calc Pharmacy 58.0 ml/min; Globulin 3.6 gm/dl (2.5-4.0); Glucose 166.0 mg/dl (70-99(Fasting)); Magnesium 2.6 mg/dl (1.7-2.4); Potassium 4.2 mmol/L (3.5-5.1); Sodium 136.0 mmol/L (136-145); Total Protein 6.4 gm/dl (6.0-8.3)
[2024-12-08 07:23] LABS: Immature Granulocytes # (auto) 0.11 K/uL (0.01-0.20); Immature Granulocytes % (auto) 0.6 %; Ovalocytes 1+; Polychromasia 1+
[2024-12-08] MEDS: LANTUS PER UNIT CHARGE SC SCH (09:29)
--- NOTE | 2024-12-08 10:49 | XRay Report ---
RIGHT KNEE 2 VIEWS CLINICAL HISTORY: Right knee pain. Bacteremia. FINDINGS: AP and crosstable lateral views of the right knee are compared to study dated 09/07/2024. Th e skeletal structures are osteopenic. No fracture is seen. A right knee arthroplasty is in near anato irene alignment. There has been undersurface remodeling of the patella. No periprosthetic lucency is se en. There is a joint effusion, with soft tissue swelling seen around the knee. Mild atherosclerotic c alcification is observed in the popliteal artery. IMPRESSION: 1. Soft tissue swelling and small joint effusion with no acute bony abnormality identified. 2. A right knee arthroplasty is in near anatomic alignment. Electronically signed by: Nolan Danielson M.D. 12/08/2024 10:48 AM
--- NOTE | 2024-12-08 10:56 | XRay Report ---
SINGLE VIEW PELVIS; 2 VIEWS RIGHT HIP CLINICAL HISTORY: Right hip pain. Bacteremia. FINDINGS: An AP view of the pelvis with AP and frog leg views of the right hip are compared to study dated 09/07/2024. The skeletal structures are osteopenic. A bipolar right hip arthroplasty is in near anatomic alignment. No periprosthetic lucency is seen. There is a subacute/healing horizontal fractur e through the greater trochanter of the right proximal femur. The bony pelvis and left hip appear int act. Mild arthritic change is seen in the left hip. Degenerative sclerosis is noted in the sacroiliac joints. Postsurgical change is seen at the lumbosacral junction. Enthesophytes arise from the anteri or superior iliac spines. Mild soft tissue edema overlies the right hip. Clips project over the scrot um. IMPRESSION: 1. There is a subacute/healing horizontal fracture through the greater trochanter of the right proxim al femur. 2. A bipolar right hip arthroplasty is in near anatomic alignment. 3. Additional findings as above. Electronically signed by: Nolan Danielson M.D. 12/08/2024 10:55 AM
--- NOTE | 2024-12-08 12:52 | Hospitalist Progress Note ---
Date of Service December 08, 2024 Assessment & Plan (1) Acute respiratory failure with hypoxia: (2) Pneumonia: (3) CHF exacerbation: (4) Urinary retention due to benign prostatic hyperplasia: Plan The patient is a 69-year-old male presents to the ER with shortness of breath for 4 days with fever and hypoxia. Patient typically wears BiPAP 17/ at home but on room air at baseline. #Staph aureus bacteremia (PCR MRSA negative) + bacteroides fragilis Vancomycin discontinued as culture PCR negative for MRSA Add metronidazole IV for bacteroides coverage Continue cefepime pending ID evaluation Repeat blood cultures ordered this AM--pending No vegetation seen on echocardiogram Repeat BC negative @ 24 hours XR 1st toe left foot and 2nd toe right foot due to ulcers here to assess for osteomyelitis XR right hip and knee with ortho consult to assess hip and knee joint infection Infectious disease consult pending #Toe ulcers Wound care consult. US arterial dopplers to assess healing capacity #Acute respiratory failure with hypoxia/ acute HFpEF exacerbation/pneumonia/chronic BiPAP- Continue BiPAP HS Treating CHF and pneumonia (suspect mostly the latter causing his symptoms with positive procalcitonin) Continue cefepime + azithromycin (switched to PO, will finish today) He met minor criteria for severe pneumonia on admission therefore started on steroids however given bacteremia will stop this Bump in Cr/BUn with Lasix and negative fluid balance therefore this has been discontinued, will repeat CXR to assess for pulmonary edema Wean O2 as able to keep sat 88-92%, currently with a sat of 92% on 5L #Chronic atrial fibrillation/hypertension- Continue Xarelto, metoprolol titrate and diltiazem Hold lisinopril #COPD - do not suspect exacerbation Switch duonebs to PRN Continue Trelegy Ellipta MRSA swab pending #Type 2 Diabetes mellitus- Hold metformin Continue Jardiance HbA1C 6.7 Appreciate pharmacy glycemic consult #BPH with urinary retention- Placed Watson catheter in the ED - DO NOT REMOVE Patient reports that outpatient feeling as duloxetine has been contributing, and is presently on a tapering schedule. Continue duloxetine tapering to q48h. Start tamsulosin - discussed with his PCP per patient #Hyperlipidemia Continue atorvastatin Check a fasting lipid panel #Neuropathy Is presently on tapering schedule duloxetine due to concerns regarding exacerbation of urinary retention #Chronic gout Continue allopurinol VTE Prophylaxis - Xarelto Disposition - continue on PCU Admission and Anticipated Discharge Date Admission Date: December 05, 2024 Subjective Discussed staph bacteremia and on further questioning he has had ulcer on his feet being managed by podiatry for the last year. No acute changes in these ulcers. Also he has been complaining about his right THR and TKA having more pain - seeing Dr Beltran for this. Otherwise in general he feels he is improving Physical Exam ENMT: external ear and nose normal, oropharynx normal Respiratory: normal respiratory effort, lungs clear to auscultation Cardiovascular: Rate/Rhythm: regular rate and + irregularly irregular Heart Sounds: + murmur Extremities: normal capillary refill; no calf tenderness and no pedal edema Gastrointestinal (Abdomen): normal bowel sounds, soft, nontender, no hepatosplenomegaly Skin: Right 2st toe ulcer and left 1st toe ulcer without surrounding cellulitic changes No erythema, swelling right knee and hip Results & Data Results & Data Vital Signs (Past 12 Hours) Vital Signs Temp Pulse Pulse Resp BP Pulse Ox O2 Del Method 12/08/24 11:31 75 18 92 Nasal Cannula 12/08/24 10:53 36.6 C 77 19 120/84 93 Oxymask 12/08/24 10:00 Nasal Cannula 12/08/24 10:00 94 H 12/08/24 08:28 83 19 86 L Nasal Cannula 12/08/24 07:56 36.9 C 96 H 19 114/74 91 Nasal Cannula 12/08/24 04:02 36.5 C 113 H 18 121/83 93 BiPAP O2 Flow Rate 12/08/24 11:31 5 12/08/24 10:53 4 12/08/24 10:00 6 12/08/24 10:00 12/08/24 08:28 4 12/08/24 07:56 4 12/08/24 04:02 PG Care Time/CCT Total # of Minutes Spent Total Time Spent with Patient: Total time spent is greater than 50% in coordination of care (as documented) at patient's floor/unit and/or counseling patient: Coding Level of Care Code 44435 SUB INP/OBS CARE 3/50MIN Diagnoses Acute respiratory failure with hypoxia J96.01 Pneumonia J18.9 CHF exacerbation I50.9 Urinary retention due to benign prostatic hyperplasia N40.1; R33.8
--- NOTE | 2024-12-08 12:54 | XRay Report ---
RIGHT SECOND TOE 3 VIEWS CLINICAL HISTORY: Second toe ulcer. FINDINGS: 3 views of the right second toe are obtained. No prior studies are available for comparison at the time of dictation. The skeletal structures are osteopenic. No fracture is seen. No bony erosi on or periostitis is identified. There is moderate to severe osteoarthritic change at the first metat arsophalangeal joint with bony overgrowth and sclerosis. Soft tissue swelling is noted in the second toe. No radiodense foreign body is seen. IMPRESSION: Soft tissue swelling in the second toe with no acute bony abnormality identified.. Electronically signed by: Nolan Danielson M.D. 12/08/2024 12:52 PM
[2024-12-08] MEDS ORDERED: ALBUT/IPRATROP 3MG/0.5MG NEB 3 ML VIAL NEB PRN (13:06)
--- NOTE | 2024-12-08 13:17 | XRay Report ---
SINGLE VIEW CHEST CLINICAL HISTORY: Hypoxia FINDINGS: An AP, portable, upright chest radiograph is compared to study dated 12/05/2024 and correla radha with chest CT dated 04/24/2023. The examination is degraded by portable technique and apical lordot ic positioning. The heart is enlarged noting atherosclerotic calcification of the thoracic aorta. The re is pulmonary vascular congestion. Emphysema and chronic interstitial thickening is similar to prev ious. There are layering pleural effusions with dependent consolidation. Calcific granulomas are unch anged. No pneumothorax is seen. The skeletal structures are osteopenic. The bony thorax is grossly in tact. IMPRESSION: 1. Cardiomegaly and emphysema with evidence of congestive failure. 2. Layering pleural effusions with dependent consolidation. Radiographic follow-up to resolution is r ecommended. ACT 112: Negative or not required by law. Electronically signed by: Nolan Danielson M.D. 12/08/2024 1:16 PM
[2024-12-08] MEDS: metroNIDAZOLE 500 MG/100 ML BAG IV SCH (13:49)
--- NOTE | 2024-12-08 13:54 | XRay Report ---
LEFT FIRST TOE 3 VIEWS CLINICAL HISTORY: First toe ulcer. FINDINGS: 3 views of the left first toe are obtained. No prior studies are available for comparison a t the time of dictation. The skeletal structures are osteopenic. No fracture is seen. No bony erosion or periostitis is identified in the first toe. There is chronic appearing erosion/truncation involvi ng the tuft of the third distal phalanx. There is moderate to severe osteoarthritic change at the fir st metatarsophalangeal joint with bony overgrowth and sclerosis. Mild soft tissue swelling is suggest ed in the left toes. No radiodense foreign body is seen. IMPRESSION: 1. Soft tissue swelling with no acute bony abnormality identified in the first toe. 2. There is chronic appearing erosion/truncation involving the tuft of the third distal phalanx. Nirali angie clinically. Electronically signed by: Nolan Danielson M.D. 12/08/2024 1:52 PM
[2024-12-08] MEDS: FUROSEMIDE 40 MG/4 ML VIAL IV SCH (14:52)
--- NOTE | 2024-12-08 15:12 | Orthopedic Consultation ---
Date of Service December 08, 2024 Assessment & Plan (1) Periprosthetic fracture around internal prosthetic right hip joint: (2) Trochanteric bursitis, right hip: (3) Status post right knee replacement: Plan Assessment: Bacteremia, periprosthetic fracture around internal prosthesis right hip joint, status post right knee replacement. Plan: Case and patient presentation discussed with Dr. Ybarra today. I also did make a phone call to Dr. Beltran as well. At this present time, the patient really is not examining or presenting with any new complaints that were not already discussed at his previous visit. Suspicion of periprostatic joint infections is quite low at this point in time. Do think that his bacteremia is coming from a separate source. At this point time, we will continue to just conservatively watch the patient. Hopefully he does respond to the IV antibiotics that he is currently on for his bacteremia. As for the possible subacute greater trochanter fracture, this can continue to be managed conservatively. He may continue ambulating with the use of a wheeled walker at this present time. Protected weightbearing will pry help him feel little bit better in the long run. Medical management and DVT prophylaxis per primary. If patient is still admitted, Dr. Beltran may stop by to also have a conversation with him as well. Once patient is stable and medically able to be discharged, he may continue to follow-up in our office. Does appear that he already has an appointment scheduled to see Dr. Beltran here in a couple weeks. From this point, we will refer continue to follow the patient from afar. Please reach out to [facility] if patient situation is to change. History of Present Illness Reason for Consultation: . Bacteremia with history of total hip arthroplasty and total knee arthroplasty. Requesting Physician: . Attending Physician: Indio Carvalho MD . Patient is a 69-year-old gentleman who we were asked to see on consultation today for newly found Staph aureus bacteremia with a history of a right total hip arthroplasty and right total knee arthroplasty. Patient is a patient of Dr. Beltran. Unfortunately, Dr. Beltran was following up with this patient for continued right hip and right knee pain. Multiple x-rays and bone scans were done since today's consultation which did show a subacute greater trochanter fracture. This really remained unchanged today. He did was having elevated sed rates and CRP levels during this time but really was never feeling ill with no fevers. It was never felt that the patient was dealing with any periprostatic joint infections during the evaluations by Dr. Beltran. Unfortunately a couple days ago, the patient was admitted into the hospital for other comorbidities. Unfortunately through testing, he was found to have positive blood cultures which were positive for Staphylococcus aureus and bacteroides fragilis. We are asked to see the patient today because of Dr. Beltran's history with him and with him having a history of total joint arthroplasties. He notes that he is a little bit sore right over the greater trochanter of the right hip and a little bit around the right knee today. He really does not note any changes since he seen Dr. Beltran in the past. He denies any other concerns today. Allergies Allergy/AdvReac Type Severity Reaction Status Date / Time dicyclomine [From Bentyl] Allergy Unknown CAN'T Verified 12/05/24 20:29 REMEMBER Home Medications Medication Instructions Recorded Confirmed Type albuterol sulfate 90 mcg/actuation 2 inh inhalation Q4H PRN shortness 03/18/23 12/05/24 Rx breath activated powder inhaler of breath or wheezing #1 ea oxygen #2 ea 04/28/23 10/26/24 Rx diltiazem HCl 180 mg 180 mg PO DAILY #90 caps 03/12/24 12/05/24 Rx capsule,extended release 24 hr empagliflozin 10 mg tablet 10 mg PO QAM #30 tabs 03/12/24 12/05/24 Rx (Jardiance) fluticasone fur. 100 mcg-umeclid 1 inh inhalation DAILY #60 ea 03/12/24 12/05/24 Rx 62.5 mcg-vilant 25 mcg inhalat.powder (Trelegy Ellipta) metformin 500 mg tablet 500 mg PO BID #180 tabs 03/12/24 12/05/24 Rx rivaroxaban 20 mg tablet (Xarelto) 20 mg PO DAILY #30 tabs 03/12/24 12/05/24 Rx allopurinol 300 mg tablet 300 mg PO BID #180 tabs 04/11/24 12/05/24 Rx atorvastatin 10 mg tablet 10 mg PO QPM #90 tabs 04/11/24 12/05/24 Rx furosemide 80 mg tablet 80 mg PO DAILY #180 tabs 04/11/24 12/05/24 Rx metoprolol tartrate 100 mg tablet 100 mg PO BID #180 tabs 04/11/24 12/05/24 Rx blood sugar diagnostic (OneTouch #100 ea 06/07/24 10/26/24 Rx Ultra Test strips) lancets #100 ea 06/07/24 10/26/24 Rx lisinopril 5 mg tablet 5 mg PO DAILY #90 tabs 06/07/24 12/05/24 Rx duloxetine 30 mg capsule,delayed 30 mg PO DAILY #30 caps 12/03/24 12/05/24 Rx release acetaminophen 500 mg tablet 1,000 mg PO TID PRN pain 12/05/24 12/05/24 History (Tylenol Extra Strength) Past Med/Surg History Problem List (Updated 12/06/24 @ 00:11 by Jennifer Rice MD) CHF (congestive heart failure) (Acute) Pneumonia (Acute) Urinary retention due to benign prostatic hyperplasia CHF exacerbation Pneumonia Acute respiratory failure with hypoxia PMR (polymyalgia rheumatica) Urinary frequency Trochanteric bursitis, right hip Periprosthetic fracture around internal prosthetic right hip joint (Acute) Peripheral neuropathy Pulmonary hypertension Diastolic heart failure (Chronic) (HFpEF) heart failure with preserved ejection fraction Type 2 diabetes mellitus (Acute) Status post right knee replacement (Acute) Hx of congestive heart failure Chronic atrial fibrillation (Acute) Taking Xarelto COPD (chronic obstructive pulmonary disease) Elevated bilirubin Right knee DJD Benign essential hypertension (Chronic) Chronic obstructive pulmonary disease (Chronic) Gout (Chronic) Hypercholesterolemia (Chronic) Medical History Encounter for pre-operative examination History of cor pulmonale Other secondary pulmonary hypertension Lumbar spinal stenosis DJD (degenerative joint disease) Hx of diabetic foot ulcer Venous insufficiency Osteoarthritis Diabetes Hyperlipidemia HTN (hypertension) Hx of gout History of COVID-19 (01/2023) AISHA (obstructive sleep apnea) Surgical History Hx of total knee replacement History of lumbar fusion (2008) Hx of cardiac catheterization (04/26/23) H/O total hip arthroplasty History of vasectomy Family History Mother Coronary heart disease Hypertension Diabetes Denies family history of Ovarian cancer Prostate cancer Myocardial infarction Breast cancer Colorectal cancer Social History Smoking Status: Former smoker Tobacco Type: Cigarettes Age Started Using Tobacco: 10; Age Quit Using Tobacco: 48; packs per day: 2.5; Second Hand Exposure: Yes; Do You Dip or Chew Tobacco: No; Tobacco Cessation Education Requested by Patient: No Hx Alcohol Use: No Hx Substance Use: No Preferred Language: Malawian Communication Ability: Effective Visual Impairment: No Limitations Hand Weaver Required: No Beliefs That Will Affect Care: None marital status: Current Living Situation: Spouse Current Living Situation Comment: and brother in law current occupational status: disabled Other Information That Helps Us Care for You: No Feels Safe at Home: Yes Safety Concerns: Feels Safe At This Time Childhood Exposure to Second-Hand Smoke: Yes Diet: DASH caffeine: Yes Seatbelt Use: always Sunscreen Use: No Assistive Devices: Cane, Walker and Other Review of Systems All systems reviewed & are unremarkable except as noted in HPI & below. Physical Exam . Physical examination: Constitutional: WD/WN, vitals as above Musculoskeletal: On physical examination of the right hip and knee shows well-healed surgical incisions. There is no swelling. He does have some mild tenderness diffusely around the greater trochanter of the right hip and right on the lateral aspect of the right knee. Does not really have a lot of pain with range of motion at the hip or the knee. He is neurovascularly intact. +2 DP and PT pulse. Less than 2-second capillary refill. Normal sensation. Neurovascular intact. Results & Data Results & Data Laboratory Results . Abnormal lab results 12/05/24 12/07/24 12/07/24 Range/Units 19:17 16:13 16:14 WBC (4.8-10.8) K/ul RBC (4.70-6.10) M/uL Hgb (14.0-18.0) g/dl Hct (42.0-52.0) % RDW Std Deviation (36.4-46.3) fL RDW Coeff of Marce (11.5-14.5) % Neut # (Auto) (1.40-6.50) K/uL Lymph # (Auto) (1.20-3.40) K/uL [place] # (Auto) (0.11-0.59) K/uL Absolute Nucleated RBC (0.00-0.12) K/uL BUN (6-23) mg/dl Creatinine (0.6-1.4) mg/dl BUN/Creatinine Ratio (10-20) Glucose (70-99(Fasting)) mg/dl POC Glucose 55 L* 61 L* (70-99) mg/dl Magnesium (1.7-2.4) mg/dl Alkaline Phosphatase (34-104) U/L Albumin (3.4-5.0) gm/dl Albumin/Globulin Ratio (0.9-2) Bacteroides fragilis DETECTED A (NotDetected) Staphylococcus sp PCR DETECTED A (NotDetected) Staph aureus (PCR) DETECTED A (NotDetected) 12/07/24 12/08/24 12/08/24 Range/Units 20:11 05:30 07:23 WBC 18.75 H (4.8-10.8) K/ul RBC 3.42 L (4.70-6.10) M/uL Hgb 10.9 L (14.0-18.0) g/dl Hct 31.8 L (42.0-52.0) % RDW Std Deviation 61.6 H (36.4-46.3) fL RDW Coeff of Marce 18.0 H (11.5-14.5) % Neut # (Auto) 17.19 H (1.40-6.50) K/uL Lymph # (Auto) 0.39 L (1.20-3.40) K/uL [place] # (Auto) 1.04 H (0.11-0.59) K/uL Absolute Nucleated RBC 0.18 H (0.00-0.12) K/uL BUN 63 H (6-23) mg/dl Creatinine 1.55 H (0.6-1.4) mg/dl BUN/Creatinine Ratio 40.6 H (10-20) Glucose 166 H (70-99(Fasting)) mg/dl POC Glucose 162 H 175 H (70-99) mg/dl Magnesium 2.6 H (1.7-2.4) mg/dl Alkaline Phosphatase 112 H (34-104) U/L Albumin 2.8 L (3.4-5.0) gm/dl Albumin/Globulin Ratio 0.8 L (0.9-2) Bacteroides fragilis (NotDetected) Staphylococcus sp PCR (NotDetected) Staph aureus (PCR) (NotDetected) 12/08/24 Range/Units 11:19 WBC (4.8-10.8) K/ul RBC (4.70-6.10) M/uL Hgb (14.0-18.0) g/dl Hct (42.0-52.0) % RDW Std Deviation (36.4-46.3) fL RDW Coeff of Marce (11.5-14.5) % Neut # (Auto) (1.40-6.50) K/uL Lymph # (Auto) (1.20-3.40) K/uL [place] # (Auto) (0.11-0.59) K/uL Absolute Nucleated RBC (0.00-0.12) K/uL BUN (6-23) mg/dl Creatinine (0.6-1.4) mg/dl BUN/Creatinine Ratio (10-20) Glucose (70-99(Fasting)) mg/dl POC Glucose 156 H (70-99) mg/dl Magnesium (1.7-2.4) mg/dl Alkaline Phosphatase (34-104) U/L Albumin (3.4-5.0) gm/dl Albumin/Globulin Ratio (0.9-2) Bacteroides fragilis (NotDetected) Staphylococcus sp PCR (NotDetected) Staph aureus (PCR) (NotDetected) Diagnostic Findings . Hip/Pelvis X-Ray 12/08/24 10:34 SINGLE VIEW PELVIS; 2 VIEWS RIGHT HIP CLINICAL HISTORY: Right hip pain. Bacteremia. FINDINGS: An AP view of the pelvis with AP and frog leg views of the right hip are compared to study dated 09/07/2024. The skeletal structures are osteopenic. A bipolar right hip arthroplasty is in near anatomic alignment. No periprosthetic lucency is seen. There is a subacute/healing horizontal fracture through the greater trochanter of the right proximal femur. The bony pelvis and left hip appear intact. Mild arthritic change is seen in the left hip. Degenerative sclerosis is noted in the sacroiliac joints. Postsurgical change is seen at the lumbosacral junction. Enthesophytes arise from the anterior superior iliac spines. Mild soft tissue edema overlies the right hip. Clips project over the scrotum. IMPRESSION: 1. There is a subacute/healing horizontal fracture through the greater trochanter of the right proximal femur. 2. A bipolar right hip arthroplasty is in near anatomic alignment. 3. Additional findings as above. Electronically signed by: Nolan Danielson M.D. 12/08/2024 10:55 AM Knee X-Ray 12/08/24 10:35 RIGHT KNEE 2 VIEWS CLINICAL HISTORY: Right knee pain. Bacteremia. FINDINGS: AP and crosstable lateral views of the right knee are compared to study dated 09/07/2024. The skeletal structures are osteopenic. No fracture is seen. A right knee arthroplasty is in near anatomic alignment. There has been undersurface remodeling of the patella. No periprosthetic lucency is seen. There is a joint effusion, with soft tissue swelling seen around the knee. Mild atherosclerotic calcification is observed in the popliteal artery. IMPRESSION: 1. Soft tissue swelling and small joint effusion with no acute bony abnormality identified. 2. A right knee arthroplasty is in near anatomic alignment. Electronically signed by: Nolan Danielson M.D. 12/08/2024 10:48 AM PG Care Time/CCT Total # of Minutes Spent Total Time Spent with Patient: Total time spent is greater than 50% in coordination of care (as documented) at patient's floor/unit and/or counseling patient: Supervising Physician Co-Signing Physician Notes The case was reviewed with the physician statistical assistant, and I reviewed the chart/imaging/Dr. Beltran's input. I agree with the physician statistical assistant's note. The differential for his chronic pain after arthroplasty has been uncertain. It does not appear that there is any changes from his recent outpatient workup. No need for interventions this weekend. Will turn over to Dr. Beltran to continue outpatient care. Coding Level of Care Code 11602 IN/OBS CONSULT LVL 3,45M Diagnoses Periprosthetic fracture around internal prosthetic right hip joint M97.01XA Encounter type: initial encounter Trochanteric bursitis, right hip M70.61 Status post right knee replacement Z96.651 (1) Periprosthetic fracture around internal prosthetic right hip joint Encounter type: initial encounter Qualified Code(s): M97.01XA - Periprosthetic fracture around internal prosthetic right hip joint, initial encounter
--- NOTE | 2024-12-08 15:57 | Ultrasound Report ---
ULTRASOUND BILATERAL LOWER EXTREMITY ARTERIAL; ANKLE BRACHIAL INDICES CLINICAL HISTORY: Foot ulcers. COMPARISON STUDY: No priors. TECHNIQUE: Real-time grayscale and color Doppler sonography of the arteries of the right and left low er extremity is performed from the inguinal crease to the foot. Ankle-brachial indices were assessed. FINDINGS: Ankle brachial indices: Right brachial pressure measures 103. Pressures in the right posterior tibial artery measured 128 for an HEBERT of 1.24 impression the right dorsalis pedis measurement 104 for an AB I of 1.01. Pressures in the left posterior tibial artery measure 134 for an HEBERT of 1.30, and pressure s and left dorsalis pedis measure 108 for an HEBERT of 1.05. Right lower extremity: There is only mild atherosclerotic plaque and irregularity. Triphasic waveform s are seen in the common femoral artery with velocities measuring up to 71 cm/s. The profunda femoris artery is patent with velocities measuring up to 50 cm/s. There are triphasic waveforms throughout t he superficial femoral and popliteal arteries. Velocities in the superficial femoral artery measure u p to 59 cm/s and velocities in the popliteal artery measure up to 47 cm/s. There is three-vessel runo ff to the foot. Velocities within the calf arteries measure up to 98 cm/s. The dorsalis pedis artery is patent with velocities measuring up to 16 cm/s. Left lower extremity: There is mild atherosclerotic plaque and irregularity. Triphasic waveforms are seen in the common femoral artery with velocities measuring up to 61 cm/s. The profunda femoris arter y is patent with velocities measuring up to 47 cm/s. There are triphasic waveforms throughout the sup erficial femoral and popliteal arteries. Velocities in the superficial femoral artery measure up to 7 5 cm/s and velocities in the popliteal artery measure up to 55 cm/s. There is three-vessel runoff to the foot. Velocities throughout the calf arteries measure up to 147 cm/s. The dorsalis pedis artery i s patent with velocities measuring up to 54 cm/s. IMPRESSION: 1. There is no sonographic evidence of high-grade stenosis or focal vessel cut off throughout the art eries of the right or left lower extremity. 2. Ankle brachial indices as above. Electronically signed by: Nolan Danielson M.D. 12/08/2024 3:56 PM
--- NOTE | 2024-12-09 08:08 | Pulmonary Consultation ---
Date of Consultation December 09, 2024 Assessment & Plan (1) Pulmonary hypertension: (2) Community acquired pneumonia: (3) Chronic atrial fibrillation: (4) COPD (chronic obstructive pulmonary disease): (5) AISHA treated with BiPAP: Plan I have reviewed patient's imaging and laboratory data. I have reviewed his previous studies including echocardiogram and PFTs. Patient has known underlying COPD with emphysema and heavy tobacco use history. He also has known pulmonary hypertension likely precapillary and postcapillary in setting of lung and heart disease. There is evidence of left lower lobe pneumonia appreciated on imaging studies, also had slightly elevated procalcitonin on admission. He does have known pleural effusions, I reviewed imaging, there is a small effusion on his CT scan however given the chronicity of this finding and the size of the effusion I do not recommend a thoracentesis at this time. I agree with diuretics and treating for community-acquired pneumonia. Should complete 5 days of antibiotics. I recommend continuing Lasix and I will add Aldactone. Once patient is more euvolemic I would recommend obtaining a right heart catheterization. Patient should have repeat CT imaging in 6 to 8 weeks to evaluate the left lower lobe infiltrate and ensure there is no underlying malignancy. Wean oxygen as tolerated, goal saturation 88 to 92%. Continue home BiPAP nightly for underlying AISHA. Can resume Xarelto. Thank you for this consult. I will sign off. Please call with any questions. 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 The patient follows with pulmonary, he last saw Dr. Bailey on 03/02/2024. He is prescribed Trelegy inhaler which he is compliant with. He also uses Lasix 80 mg daily at home and will take additional tablets if needed for weight gain. The patient presented to the hospital 12/05/2024 with worsening shortness of breath for 4 days duration. The patient also endorsed fevers at home as high as 103 F. The patient was found to be hypoxic on room air in the mid 80s which improved with oxygen supplementation. Imaging was concerning for pneumonia versus CHF. He was administered antibiotics, Lasix and steroids. Labs were significant for an ESR of 66, CRP 5.87, procalcitonin 2.22, WBC 10.9, mild hyponatremia, CHLOE on CKD with a creatinine of 1.6, UA with positive nitrates and leukocyte esterase with bacteria and WBCs seen. MRSA nares was not detected. Blood cultures grew Staph aureus. He was admitted to the hospital service and pulmonary has been consulted for pleural effusion. The patient had an x-ray on presentation to the hospital. This shows hilar fullness, calcified granulomas appreciated, left costophrenic angle blunting. Imaging was again repeated on the which was stable except for a subtle rounded opacity in the left lower lobe. The patient has known chronic pleural effusions which have been appreciated on x-rays and CT imaging used in the past. He has had multiple CT imagings obtained in 2023 which showed pleural effusions, more on the right than the left, calcified granulomas, adenopathy with some calcified lymph nodes, loculated fluid was appreciated in the left main fissure. Patient underwent CT abdomen pelvis today. I reviewed this film, the lower portions of the chest were evaluated, there is atelectasis and some infiltrates appreciated in the left lower lobe. There is a small pleural effusion on the right with adjacent atelectasis. Emphysema again appreciated. Echo was performed on 12/06/2024, EF is 60 to 65%, normal LV wall thickness. LV mildly dilated. There is moderate left atrial enlargement with moderate to severe right atrial enlargement, moderate mitral and tricuspid regurgitation with an estimated RVSP greater than 60 mmHg. RV was not well-visualized. The hospitalist team initiated on Lasix 80 mg IV on 12/08/2024. Getting metronidazole and cefepime to cover for pneumonia. On Anoro and Arnuity inhalers. Is on home Xarelto, this is on hold, his last dose was at 9:22 AM on 12/08/2024. When examined the patient he is resting comfortably in chair. He says that his breathing is about the same as when he presented to the hospital. Still requiring 3 L of oxygen. He endorses that he retains fluid very easily and has some mild lower extremity swelling. Chronic venous stasis changes are also appreciated. There is no wheezing appreciated on my exam, slightly diminished on right base. Allergies Allergy/AdvReac Type Severity Reaction Status Date / Time dicyclomine [From Bentyl] Allergy Unknown CAN'T Verified 12/05/24 20:29 REMEMBER Home Medications Medication Instructions Recorded Confirmed Type albuterol sulfate 90 mcg/actuation 2 inh inhalation Q4H PRN shortness 03/18/23 12/05/24 Rx breath activated powder inhaler of breath or wheezing #1 ea oxygen #2 ea 04/28/23 10/26/24 Rx diltiazem HCl 180 mg 180 mg PO DAILY #90 caps 03/12/24 12/05/24 Rx capsule,extended release 24 hr empagliflozin 10 mg tablet 10 mg PO QAM #30 tabs 03/12/24 12/05/24 Rx (Jardiance) fluticasone fur. 100 mcg-umeclid 1 inh inhalation DAILY #60 ea 03/12/24 12/05/24 Rx 62.5 mcg-vilant 25 mcg inhalat.powder (Trelegy Ellipta) metformin 500 mg tablet 500 mg PO BID #180 tabs 03/12/24 12/05/24 Rx rivaroxaban 20 mg tablet (Xarelto) 20 mg PO DAILY #30 tabs 03/12/24 12/05/24 Rx allopurinol 300 mg tablet 300 mg PO BID #180 tabs 04/11/24 12/05/24 Rx atorvastatin 10 mg tablet 10 mg PO QPM #90 tabs 04/11/24 12/05/24 Rx furosemide 80 mg tablet 80 mg PO DAILY #180 tabs 04/11/24 12/05/24 Rx metoprolol tartrate 100 mg tablet 100 mg PO BID #180 tabs 04/11/24 12/05/24 Rx blood sugar diagnostic (OneTouch #100 ea 06/07/24 10/26/24 Rx Ultra Test strips) lancets #100 ea 06/07/24 10/26/24 Rx lisinopril 5 mg tablet 5 mg PO DAILY #90 tabs 06/07/24 12/05/24 Rx duloxetine 30 mg capsule,delayed 30 mg PO DAILY #30 caps 12/03/24 12/05/24 Rx release acetaminophen 500 mg tablet 1,000 mg PO TID PRN pain 12/05/24 12/05/24 History (Tylenol Extra Strength) Patient History Medical History Encounter for pre-operative examination History of cor pulmonale Other secondary pulmonary hypertension Echo/RHC 04/2023 Type II/III Follows with [facility] pul[facility]. Per visit 04/2023, "Predominantly he has pulmonary hypertension is postcapillary due to diastolic heart failure. Treatment of this syndrome is maintaining an adequate volume status." Lumbar spinal stenosis DJD (degenerative joint disease) Hx of diabetic foot ulcer Hx of left foot ulcer "resolved" per patient- no active infection/ulcer Monitored/following with [facility] for ankle and foot care Venous insufficiency Osteoarthritis Diabetes Hyperlipidemia HTN (hypertension) Hx of gout History of COVID-19 (01/2023) Hospitalized x 3 days at [facility] AISHA (obstructive sleep apnea) BIPAP (compliant) Surgical History Hx of total knee replacement 10/11/23 History of lumbar fusion (2008) Hx of cardiac catheterization (04/26/23) RHC- Significantly elevated pulmonary capillary wedge pressure. Significantly elevated pulmonary arterial pressure and pulmonary vascular resistance. Significantly elevated right ventricular end-diastolic pressure and right atrial pressure. Recommend continue diuresis for volume overload. Additional recommendations regarding elevated pulmonary vascular resistance per pulmonary medicine team. H/O total hip arthroplasty Right History of vasectomy Family History Mother Coronary heart disease Hypertension Diabetes Denies family history of Ovarian cancer Prostate cancer Myocardial infarction Breast cancer Colorectal cancer Social History Smoking Status: Former smoker Tobacco Type: Cigarettes Age Started Using Tobacco: 10; Age Quit Using Tobacco: 48; packs per day: 2.5; Second Hand Exposure: Yes; Do You Dip or Chew Tobacco: No; Tobacco Cessation Education Requested by Patient: No Hx Alcohol Use: No Hx Substance Use: No Preferred Language: Turkish Communication Ability: Effective Visual Impairment: No 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 Physical Exam Physical Exam: Physical examination: General: Well-appearing, well-nourished and not in acute distress. HEENT: Normocephalic, atraumatic. Extraocular movements intact. Sclera are nonicteric. No JVD appreciated. Skin: Warm and dry, multiple ecchymosis appreciated, venous stasis changes in lower extremities appreciated. Cardiovascular: Heart is a regular rate and rhythm, no murmurs appreciated on my exam. Lower extremity edema. Lungs: Clear bilaterally, no wheezing appreciated. No crackles. Diminished at right base. On nasal cannula. Nontachypneic. Abdomen: Nondistended, nontender to palpation. No masses appreciated. Musculoskeletal: Normal muscle mass and tone. Neurologic: Awake and alert, oriented. CN II through XII are grossly intact. Speech is fluent. Nonfocal exam. Psychiatric: Appropriate cooperative during my exam. Results & Data Results & Data Vital Signs (Past 12 Hours) Vital Signs Temp Pulse Pulse Resp BP Pulse Ox O2 Del Method 12/09/24 07:53 36.6 C 88 19 115/66 94 Nasal Cannula 12/09/24 07:42 Oxymask 12/09/24 07:42 80 12/09/24 03:51 36.5 C 79 18 100/66 94 Oxymask 12/09/24 00:28 36.5 C 116 H 20 142/84 H 94 BiPAP 12/08/24 21:44 84 12/08/24 21:00 Oxymask, BiPAP 12/08/24 20:09 36.5 C 74 18 121/78 93 Oxymask O2 Flow Rate 12/09/24 07:53 3 12/09/24 07:42 3 12/09/24 07:42 12/09/24 03:51 3 12/09/24 00:28 12/08/24 21:44 12/08/24 21:00 3 12/08/24 20:09 3 PG Care Time/CCT Total # of Minutes Spent Total Time Spent with Patient: Total time spent is greater than 50% in coordination of care (as documented) at patient's floor/unit and/or counseling patient: [place] [address] IN/OBS CONSULT LVL 4,60M Patient Type New History Comprehensive Exam Comprehensive Medical Decision Making High Complexity Diagnoses Pulmonary hypertension I27.20 Community acquired pneumonia J18.9 Chronic atrial fibrillation I48.20 COPD (chronic obstructive pulmonary disease) J44.9 AISHA treated with BiPAP G47.33
--- NOTE | 2024-12-09 09:06 | Hospitalist Progress Note ---
Date of Service December 09, 2024 Assessment & Plan (1) Acute respiratory failure with hypoxia: (2) Pneumonia: (3) CHF exacerbation: (4) Urinary retention due to benign prostatic hyperplasia: Plan The patient is a 69-year-old male presents to the ER with shortness of breath for 4 days with fever and hypoxia. Patient typically wears BiPAP 17/13 at home but on room air at baseline. #Staph aureus (MSSA) bacteremia (PCR MRSA negative) + bacteroides fragilis Suspected source pneumonia. Appreciate orthopedic and pulm consults - no plan on joint aspiration or thoracentesis which agree I do not feel these are necessary especially with him clearing cultures already XR 1st toe left foot and 2nd toe right foot did not show osteomyelitis - wound care consulted No vegetation seen on echocardiogram Repeat blood cultures negative at 48 hours however ID requested another set to make sure Previously on cefepime (+ a few days of vancomycin) will switch to cefazolin now sensitivities are back showing MSSA today Added metronidazole IV for bacteroides coverage 12/08 Formal infectious disease consult pending although I did discuss with them over the phone today and given bacteroides they recommended CT A/P with IV contrast #Toe ulcers Wound care consult. US arterial dopplers without significant stenosis #Acute respiratory failure with hypoxia/ acute HFpEF exacerbation/pneumonia/chronic BiPAP- Room air at baseline. Improving oxygenation - Wean O2 as able to keep sat 88- 92%, currently with a sat of 94% on 3L Continue BiPAP HS, incentive spirometry q1h Antibiotics as above POCUS Lung 12/08 with diffuse B lines therefore Lasix restarted to aim for slight net negative fluid balance Strict I&Os Daily standing weights He met minor criteria for severe pneumonia on admission therefore started on steroids however given bacteremia and no concern for ARDS now discontinued #BPH with urinary retention- Placed Watson catheter in the ED - DO NOT REMOVE Patient reports that outpatient feeling as duloxetine has been contributing, and is presently on a tapering schedule. Continue duloxetine tapering to q48h. Started tamsulosin #Chronic atrial fibrillation/hypertension- Continue Xarelto, metoprolol titrate and diltiazem Hold lisinopril due to low normal BP #COPD - do not suspect exacerbation Duonebs to PRN Continue Trelegy Ellipta MRSA swab pending #Type 2 Diabetes mellitus- Hold metformin Continue Jardiance HbA1C 6.7 Appreciate pharmacy glycemic consult #Hyperlipidemia Continue atorvastatin Check a fasting lipid panel #Neuropathy Is presently on tapering schedule duloxetine due to concerns regarding exacerbation of urinary retention #Chronic gout Continue allopurinol VTE Prophylaxis - Xarelto Disposition - continue on PCU, PT/OT Admission and Anticipated Discharge Date Admission Date: December 05, 2024 Subjective No acute questions or concerns from patient. Reports slowly improving. Out in chair when seen. Physical Exam Constitutional: WD/WN, vitals as above ENMT: external ear and nose normal, oropharynx normal Respiratory: normal respiratory effort, lungs clear to auscultation Cardiovascular: Rate/Rhythm: regular rate and + irregularly irregular Heart Sounds: + murmur Extremities: normal capillary refill; no calf tenderness and no pedal edema Gastrointestinal (Abdomen): normal bowel sounds, soft, nontender, no hepatosplenomegaly Musculoskeletal: no cyanosis or clubbing, extremities motor strength 5/5 Neurologic: moves all extremities and awake; not confused Psychiatric: A+Ox3, euthymic affect Results & Data Results & Data Vital Signs (Past 12 Hours) Vital Signs Temp Pulse Pulse Resp BP Pulse Ox O2 Del Method 12/09/24 07:53 36.6 C 88 19 115/66 94 Nasal Cannula 12/09/24 07:42 Oxymask 12/09/24 07:42 80 12/09/24 03:51 36.5 C 79 18 100/66 94 Oxymask 12/09/24 00:28 36.5 C 116 H 20 142/84 H 94 BiPAP 12/08/24 21:44 84 O2 Flow Rate 12/09/24 07:53 3 12/09/24 07:42 3 12/09/24 07:42 12/09/24 03:51 3 12/09/24 00:28 12/08/24 21:44 PG Care Time/CCT Total # of Minutes Spent Total Time Spent with Patient: Total time spent is greater than 50% in coordination of care (as documented) at patient's floor/unit and/or counseling patient: Coding Level of Care Code 59446 SUB INP/OBS CARE 3/50MIN Diagnoses Acute respiratory failure with hypoxia J96.01 Pneumonia J18.9 CHF exacerbation I50.9 Urinary retention due to benign prostatic hyperplasia N40.1; R33.8
[2024-12-09] MEDS: OPTIRAY 320 100ml IV ONE (09:28)
[2024-12-09 09:33] LABS: Hematocrit (blood only) 30.5 % (42.0-52.0); Hemoglobin 10.2 g/dl (14.0-18.0); Immature Granulocytes # (auto) 0.10 K/uL (0.01-0.20); Immature Granulocytes % (auto) 0.7 %; Mean Corpuscular Hemoglobin 31.8 pg (25.0-34.0); Mean Corpuscular Volume 95.0 fL (80.0-100.0); Platelet Count 251 K/uL (130-400); RDW Standard Deviation 63.2 fL (36.4-46.3); Red Blood Count 3.21 M/uL (4.70-6.10); White Blood Count 15.19 K/ul (4.8-10.8)
[2024-12-09 09:35] LABS: Anion Gap 9.0 (3-11); Blood Urea Nitrogen 67.0 mg/dl (6-23); Calcium 9.3 mg/dl (8.6-10.3); Carbon Dioxide 28.0 mmol/L (21-32); Chloride 101.0 mmol/L (98-107); Creatinine Clr Calc Pharmacy 62.1 ml/min; Glucose 108.0 mg/dl (70-99(Fasting)); Potassium 4.3 mmol/L (3.5-5.1); Sodium 138.0 mmol/L (136-145)
[2024-12-09] MEDS: SPIRONOLACTONE 25 MG TAB PO ONE (10:51)
--- NOTE | 2024-12-09 14:00 | CT Scan Report ---
CT SCAN OF THE ABDOMEN AND PELVIS WITH IV CONTRAST CLINICAL HISTORY: Bacteremia. COMPARISON STUDY: Abdominal ultrasound dated 03/21/2013. Chest CT dated 04/20/2023. TECHNIQUE: Following the IV administration of 94 cc of Optiray 320, CT scan of the abdomen and pelvi s is performed from the lung bases to the proximal femora. Images are reviewed in the axial, sagittal , and coronal planes. IV contrast was administered without complication. A dose lowering technique wa s utilized adhering to the principles of ALARA. CT DOSE: 1674.72 mGy.cm FINDINGS: Lung bases: The heart is enlarged and without pericardial effusion. There is coronary artery atherosc lerosis. Calcified hilar lymph nodes are seen on the left. Emphysematous change is seen at the lung b ases. There is a large calcified granuloma in the left upper lobe. There are small pleural effusions with dependent consolidation, right side larger than left. There is a small hiatal hernia. Gynecomast ia is noted. Liver: The contrast-enhanced liver is enlarged, measuring 19 cm in length. Attenuation is heterogeneo usly diminished indicating steatosis. Morphology is cirrhotic, with hypertrophy of the left lobe and nodularity of the surface contour. There is no intrahepatic biliary ductal dilatation. The hepatic ve ins and portal veins are patent. There are calcified hepatic granulomas. Gallbladder: There are calcified gallstones with no CT evidence of acute cholecystitis. Spleen: Normal in size and attenuation. Pancreas: Unremarkable. Adrenal glands: Bilateral adrenal adenomas measure up to 3.1 cm. Kidneys: The contrast enhanced kidneys are normal in size and without hydronephrosis. The kidneys enh ance symmetrically. Small renal cysts measure up to 2.7 cm. Additional subcentimeter cortical hypoden sities also likely represent cysts but are too small for definitive characterization. Abdominal vasculature: The abdominal aorta is normal in course and caliber noting moderate atheroscle rotic calcification. Bowel: There is moderate constipation. No bowel obstruction is seen. The appendix is well-visualized and normal. Peritoneum: There is no intraperitoneal free air or abdominal ascites. Lymphadenopathy: None. Pelvic viscera: Evaluation of the pelvis is degraded by streak artifact from a right hip arthroplasty . The bladder is decompressed around a Watson catheter. Intraluminal gas is likely related to instrume ntation. The bladder wall appears thickened and there is surrounding inflammation. The prostate gland is mildly enlarged and heterogeneous. A left hydrocele is partially imaged. Surgical clips are noted along the spermatic cord bilaterally. There is a 4.4 x 6.2 x 3.7 cm ovoid cystic structure identifie d in the subcutaneous soft tissues along the inferior right gluteal crease seen on axial image #401. Skeletal structures: The skeletal structures are osteopenic. No lytic or blastic lesions are seen. A right hip arthroplasty is in place. There is cortical erosion along the medial aspect of the right pr oximal femoral cortex seen on axial image #397 with a loculated pocket of fluid at this site. This me asures 5.6 x 6.4 x 3.4 cm. Bursal fluid is seen superior to the joint space in the right hip on axial image #84. Postsurgical and spondylotic change is seen throughout the lumbar spine. IMPRESSION: 1. The bladder is decompressed around a Watson catheter. The wall appears thickened and there is surro unding inflammation. Correlate with clinical findings and urinalysis. 2. Cardiomegaly and emphysema. 3. Right larger than left pleural effusions with dependent consolidation. 4. The liver is enlarged, steatotic, and cirrhotic in morphology. 5. There is cortical erosion along the medial cortex of the right proximal femur with an approximatel y 6.5 cm pocket of adjacent fluid. This is pathologically indeterminate, and although this could pote ntially represent bursal fluid the sterility cannot be assessed by imaging. Clinical correlation will be essential. 6. There is an indeterminant 6 cm ovoid cystic structure in the subcutaneous soft tissues along the i nferior right gluteal crease. This is of indeterminate etiology, chronicity, and significance and cou ld potentially represent a pilonidal cyst. 7. Cholelithiasis. 8. Additional findings as above. ACT 112: Negative or not required by law. Electronically signed by: Nolan Danielson M.D. 12/09/2024 1:58 PM
--- NOTE | 2024-12-09 14:35 | Pharmacy Report ---
Pharmacy Glycemic Short Note 2 - Date of Service December 09, 2024 - Glycemic Short BSG Results (Last 24 hours): 12/08/24 12/08/24 12/08/24 16:24 16:24 20:48 Glucose POC Glucose 69 L* 77 96 12/09/24 12/09/24 12/09/24 05:31 07:13 11:11 Glucose 108 H POC Glucose 101 H 105 H OUTPATIENT ANTIDIABETIC REGIMEN: * Empagliflozin 10 mg PO AM * Metformin 500 mg PO BID * HbA1c 6.7% on 12/06/24 ASSESSMENT: 12/09: * Patient received total of 27 units of insulin yesterday, of which 8 units were basal insulin * No further steroids ordered. Fasting BSG 101 mg/dL - will hold basal insulin as blood sugars trending down yesterday * Plan to loosen CR more today 12/07: * Madhu received 41 units of insulin yesterday, 15 of which were basal. BSGs were: [phone] mg/dL. * Fasting BSG this AM is improved but slightly above goal at 150 mg/dL. Given patient remains on steroids in the form of SoluMedrol 40 mg IV AM, will plan to increase basal by 20% today. * Some postprandial hyperglycemia yesterday. Will tighten Novolog to reflect weight/stress of 3. Opting for tighter glycemic control with BSG goal of 110- 140 mg/dL given bacteremia. * Remains on Jardiance 10 mg PO daily. Continue holding metformin. Abx include Vancomycin, Cefepime and PO Azithromycin. 12/06: * 69 yo M with well-controlled T2DM per above HbA1c on two oral agents admitted yesterday evening with CHF exacerbation, possible HAP, and now GPC bacteremia * Hyperglycemia likely 2nd stressors above, plus two doses of methylprednisolone received 1015 PM and 12/06 AM. No ongoing steroids ordered. * Will tighten CHO ratio 2nd steroids * Will initiate low-dose Lantus again 2nd steroids, although this may or may not be needed ongoing now that steroids have not been continued PLAN FOR INPATIENT GLYCEMIC CONTROL: * Hold outpatient metformin, but continue empagliflozin (due to dual diagnosis of heart failure) * Basal insulin * Lantus - hold * Bolus insulin * NovoLog per scale ACHS or Q6hrs while NPO * Goal Range: Low 110 mg/dL - High 140 mg/dL * Correction Factor: 30 mg/dL/unit * Nutritional / Prandial insulin per carb ratio of 1 unit per 15 grams CHO consumed
--- NOTE | 2024-12-09 19:27 | Surgery Consultation ---
Date of Consultation December 09, 2024 Assessment & Plan (1) Pilonidal cyst: Patient has been admitted on the hospitalist service. He is currently being treated for combination of medical comorbidities including pneumonia, CHF, foot wounds, and urinary retention Will defer treatment of these conditions to the primary service Surgical recommendations are as follows: We have been asked to see the patient as there is concern the patient may have a pilonidal cyst and in the setting of his bacteremia they wanted a surgical opinion On CT scan imaging and does not appear to have the typical appearance of an abscess Clinically the area does not appear to be infected as there is no erythema, warmth, drainage, or pain The patient has had positive blood cultures previously this admission but he has had repeat blood cultures on 12/07 which are negative for growth at 48 hours and he has had repeat cultures from today that are pending. According to the hospitalist service the suspected source is likely his underlying pneumonia At some point consideration may be given to draining the patient's suspected pilonidal cyst, but given the patient's CHF status as well as his underlying pneumonia I would be hesitant to take the patient to the operating room at this time Again the cyst in question on CT scan does not appear to be infected on imaging or clinically. If there remains concern the patient does have infection in this area consideration can be given to performing needle aspiration, however it must be kept in mind that performing needle aspiration of this area may introduce infection to this area that was not previously there and therefore may not be the best course of action Will continue to monitor the patient while he is hospitalized with additional recommendations to follow based on his clinical course as unfolds Supervising Physician Co-Signing Physician Notes Patient seen and examined, labs and image reviewed, agree with above. Admitted with bilateral pneumonia and bacteremia. Recent blood cultures with no growth to date. He had CT scan of his abdomen pelvis and a fluid collection was noticed just inferior to his coccyx. He has no symptoms in this area. On exam he is afebrile stable vitals. There is a small skin tear in the midline gluteal cleft. There is a small noninfected fluid collection. No midline pits to suggest pilonidal disease. CT scan personally viewed and interpreted and agree with the assessment of a fluid collection with a 6 cm fluid collection with no evidence of abscess. This may be a small coccygeal cyst. This appears to be noninfected. No need for acute surgical intervention. Could consider aspiration and cytology as an outpatient, could consider as an inpatient as well though risk infecting the cyst. Surgical sign off, call with questions or concerns. History of Present Illness Reason for Consultation: Concern for pilonidal cyst Attending Physician: Indio Carvalho MD History of Present Illness This is a 69-year-old male who has been admitted to the hospital since 12/05/2024. Patient was admitted secondary to acute respiratory failure with hypoxia felt to be secondary to pneumonia as well as a CHF exacerbation. He is also experience urinary retention due to BPH. Since admission the patient has been treated with antibiotics in the form of cefepime and vancomycin. General surgery has been asked to see the patient as he has had a CT scan of the abdomen pelvis raising concern for pilonidal cyst. I asked the patient about the cyst and he specifically denies any drainage from his rectum. He also denies any pain from his rectum or pain with bowel movements. He denies any fevers, shakes, or chills. Imaging the patient has had since admission to the hospital includes a chest x- ray on 12/05/2024 which showed bibasilar lung densities felt to represent atelectasis or pneumonia. He had an x-ray of his left toe that showed soft tissue swelling but no bony abnormalities in the first toe. There is also chronic appearing erosion involving the tuft of the third distal phalanx. He had toe x-rays of the right foot that showed soft tissue swelling in the second toe with no bony abnormalities. He had duplex arterial scans of the lower extremities that showed no evidence of high-grade or focal stenosis in the runoff arteries of the right or left lower extremities. Repeat chest x-ray on 12/08/2024 showed evidence of congestive heart failure and layering pleural effusions bilaterally. On 12/08/2024 he had a pelvis x-ray that showed a subacute fracture involving the right greater trochanter. He had a knee x-ray on 12/08/2024 that showed soft tissue swelling and a small joint effusion of the right knee. Finally, he had a CT scan abdomen pelvis on 12/09/2024 which showed the patient had some inflammation of the bladder concerning for cystitis. He had bilateral pleural effusions with the right appearing larger than the left. There is cortical erosion along the medial cortex of the right proximal femur with a 6.5 cm pocket of adjacent fluid. There is also an ovoid appearing cystic structure measuring approximately 6 mm in the subcutaneous tissue along the inferior gluteal crease. Interpreting radiologist felt that this potentially represented a pilonidal cyst. Most recent labs were from today including a CBC were white blood cell count was elevated at 15.1 (his peak white blood cell count was on 12/07/2024 which was 22.4). Hemoglobin and hematocrit are 10.2 and 30.5 and his platelet count is normal. He has an erythrocyte sedimentation rate that is elevated at 78. Chemistry profile showed sodium and potassium are normal. His BUN and creatinine are elevated at 67 and 1.4. Review of labs show his baseline creatinine typically runs anywhere from 1.0-1.4. C-reactive protein was elevated to 8.5. The patient also had an echocardiogram this admission that showed no vegetations on this study. Microbiology the patient has had this admission include blood cultures from 12/05/2024 that grew methicillin sensitive Staph aureus. He had a urine culture from 12/05/2024 that was negative for growth. Allergies Allergy/AdvReac Type Severity Reaction Status Date / Time dicyclomine [From Bentyl] Allergy Unknown CAN'T Verified 12/05/24 20:29 REMEMBER Home Medications Medication Instructions Recorded Confirmed Type albuterol sulfate 90 mcg/actuation 2 inh inhalation Q4H PRN shortness 03/18/23 12/05/24 Rx breath activated powder inhaler of breath or wheezing #1 ea oxygen #2 ea 04/28/23 10/26/24 Rx diltiazem HCl 180 mg 180 mg PO DAILY #90 caps 03/12/24 12/05/24 Rx capsule,extended release 24 hr empagliflozin 10 mg tablet 10 mg PO QAM #30 tabs 03/12/24 12/05/24 Rx (Jardiance) fluticasone fur. 100 mcg-umeclid 1 inh inhalation DAILY #60 ea 03/12/24 12/05/24 Rx 62.5 mcg-vilant 25 mcg inhalat.powder (Trelegy Ellipta) metformin 500 mg tablet 500 mg PO BID #180 tabs 03/12/24 12/05/24 Rx rivaroxaban 20 mg tablet (Xarelto) 20 mg PO DAILY #30 tabs 03/12/24 12/05/24 Rx allopurinol 300 mg tablet 300 mg PO BID #180 tabs 04/11/24 12/05/24 Rx atorvastatin 10 mg tablet 10 mg PO QPM #90 tabs 04/11/24 12/05/24 Rx furosemide 80 mg tablet 80 mg PO DAILY #180 tabs 04/11/24 12/05/24 Rx metoprolol tartrate 100 mg tablet 100 mg PO BID #180 tabs 04/11/24 12/05/24 Rx blood sugar diagnostic (OneTouch #100 ea 06/07/24 10/26/24 Rx Ultra Test strips) lancets #100 ea 06/07/24 10/26/24 Rx lisinopril 5 mg tablet 5 mg PO DAILY #90 tabs 06/07/24 12/05/24 Rx duloxetine 30 mg capsule,delayed 30 mg PO DAILY #30 caps 12/03/24 12/05/24 Rx release acetaminophen 500 mg tablet 1,000 mg PO TID PRN pain 12/05/24 12/05/24 History (Tylenol Extra Strength) Patient History Medical History Encounter for pre-operative examination History of cor pulmonale 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 Per visit 04/2023, "Predominantly he has pulmonary hypertension is postcapillary due to diastolic heart failure. Treatment of this syndrome is maintaining an adequate volume status." Lumbar spinal stenosis DJD (degenerative joint disease) Hx of diabetic foot ulcer Hx of left foot ulcer "resolved" per patient- no active infection/ulcer Monitored/following with [facility] for [facility] foot care Venous insufficiency Osteoarthritis Diabetes Hyperlipidemia HTN (hypertension) Hx of gout History of COVID-19 (01/2023) Hospitalized x 3 days at [facility] (obstructive sleep apnea) BIPAP (compliant) Surgical History Hx of total knee replacement 10/11/23 History of lumbar fusion (2008) Hx of cardiac catheterization (04/26/23) RHC- Significantly elevated pulmonary capillary wedge pressure. Significantly elevated pulmonary arterial pressure and pulmonary vascular resistance. Significantly elevated right ventricular end-diastolic pressure and right atrial pressure. Recommend continue diuresis for volume overload. Additional recommendations regarding elevated pulmonary vascular resistance per pulmonary medicine team. H/O total hip arthroplasty Right History of vasectomy Family History Mother Coronary heart disease Hypertension Diabetes Denies family history of Ovarian cancer Prostate cancer Myocardial infarction Breast cancer Colorectal cancer Social History Smoking Status: Former smoker Tobacco Type: Cigarettes Age Started Using Tobacco: 10; Age Quit Using Tobacco: 48; packs per day: 2.5; Second Hand Exposure: Yes; Do You Dip or Chew Tobacco: No; Hx Alcohol Use: No Hx Substance Use: No Preferred Language: Montserratian Communication Ability: Effective Visual Impairment: No Limitations Manager Talent Management Required: No Beliefs That Will Affect Care: None marital status: Current Living Situation: Spouse Current Living Situation Comment: and brother in law current occupational status: disabled Feels Safe at Home: Yes Childhood Exposure to Second-Hand Smoke: Yes Diet: DASH caffeine: Yes Seatbelt Use: always Sunscreen Use: No Assistive Devices: Cane, Walker and Other Review of Systems Review of Systems: All systems reviewed & are unremarkable except as noted in HPI & below Physical Exam Constitutional: WD/WN, vitals as above Eyes: Wears glasses ENMT: Ears: no hearing impairment Neck: trachea midline Respiratory: normal respiratory effort; no respiratory distress and no labored breathing Cardiovascular: Rate/Rhythm: regular rate and regular rhythm Gastrointestinal (Abdomen): Soft and nontender to palpation The patient's rectum was examined. There are no open areas, cuts, excoriations, or areas of drainage. There are no areas of underlying erythema, fluctuance, or purulence. There is no painful areas with palpation of the perianal region. Musculoskeletal: No calf tenderness. Skin: The patient has an apparent subcutaneous cyst noted just inferior to his left scapular tip. There is no overlying skin changes or erythema or warmth suggestive of infection the area is not painful to palpation Neurologic: moves all extremities Psychiatric: A+Ox3, euthymic affect Genitourinary: Watson catheter is in place draining clear yellow urine Results & Data Vital Signs (Past 12 Hours) Vital Signs Temp Pulse Pulse Resp BP Pulse Ox O2 Del Method 12/09/24 16:14 36.5 C 83 19 126/76 94 Oxymask 12/09/24 14:04 77 12/09/24 07:53 36.6 C 88 19 115/66 94 Nasal Cannula 12/09/24 07:42 Oxymask 12/09/24 07:42 80 O2 Flow Rate 12/09/24 16:14 3 12/09/24 14:04 12/09/24 07:53 3 12/09/24 07:42 3 12/09/24 07:42 PG Care Time/CCT Total # of Minutes Spent Total Time Spent with Patient: Total time spent is greater than 50% in coordination of care (as documented) at patient's floor/unit and/or counseling patient: Coding Level of Care Code 88305 INT INP/OBS CARE MIN Diagnoses Pilonidal cyst L05.91
--- NOTE | 2024-12-09 23:27 | Electrocardiogram Report ---
Test Reason : Blood Pressure : */* mmHG Vent. Rate : 93 BPM Atrial Rate : * BPM P-R Int : * ms QRS Dur : 98 ms QT Int : 354 ms P-R-T Axes : * 31 59 degrees QTcB Int : 440 ms Atrial fibrillation Abnormal ECG When compared with ECG of 06-Dec-2024 06:01, (unconfirmed) No significant change was found Confirmed by Anastacio Payne ([id number]) on 12/09/2024 11:27:27 PM Referred By: REFERRED SELF Confirmed By: Anastacio Payne
--- NOTE | 2024-12-10 05:08 | Electrocardiogram Report ---
Test Reason : Blood Pressure : */* mmHG Vent. Rate : 100 BPM Atrial Rate : * BPM P-R Int : * ms QRS Dur : 88 ms QT Int : 354 ms P-R-T Axes : * 17 6 degrees QTcB Int : 456 ms Atrial fibrillation Abnormal ECG When compared with ECG of 05-Dec-2024 19:07, (unconfirmed) No significant change was found Confirmed by Anastacio Payne ([id number]) on 12/10/2024 5:07:54 AM Referred By: REFERRED SELF Confirmed By: Anastacio Payne
--- NOTE | 2024-12-10 05:27 | Electrocardiogram Report ---
Test Reason : Blood Pressure : */* mmHG Vent. Rate : 90 BPM Atrial Rate : * BPM P-R Int : * ms QRS Dur : 94 ms QT Int : 358 ms P-R-T Axes : * 34 40 degrees QTcB Int : 437 ms Atrial fibrillation Abnormal ECG When compared with ECG of 07-Sep-2024 20:24, No significant change was found Confirmed by Anastacio Payne ([id number]) on 12/10/2024 5:27:00 AM Referred By: REFERRED SELF Confirmed By: Anastacio Payne
--- NOTE | 2024-12-10 06:19 | Infectious Disease Consult ---
Date of Consultation December 10, 2024 Assessment & Plan (1) Staphylococcus aureus bacteremia: (2) Pneumonia: (3) Pilonidal cyst: (4) Diabetic foot ulcer: Plan Problems: #MSSA bacteremia #Bacteroides fragilis bacteremia #AHRF #Pneumonia #Pilonidal cyst #DM2 #Diabetic foot ulcers: L first toe, R second toe #R JAMES #R TKA Micro: 12/09 BCx x2: NGTD 12/07 BCx x2: NGTD 12/05 UCx: NG 12/05 BCx x2: MSSA in 3/4 bottles, Bacteroides fragilis in 1/4 bottles Abx: Cefazolin 12/09 - present Metronidazole 12/08 - present Cefepime 12/05 - 12/09 Vanc 12/06 - 12/07 Azithro 12/05 - 12/07 69 yo M with history of afib, PMR, peripheral neuropathy, pulmonary hypertension, AISHA on nightly BiPAP, HFpEF, DM2, HTN, COPD, gout, hypercholesterolemia, R JAMES, R TKA who presented on 12/05 with complaint of worsening shortness of breath x 4 days, fever, found to have MSSA and Bacteroides fragilis bacteremia. On presentation, pt was afebrile with O2 sat in mid 80s, improved on Oxymask 4 L. Labs showed WBC 16.3, Cr 1.64, lactate 2, procal 2.22. UA with >50 WBCs. CXR with L>R basilar densities, may represent atelectasis or mild pneumonia; congestive changes of the cardiovascular system. Pt's respiratory status worsened in the ED with O2 sat remaining in upper 70s to low 80s despite oxymask 12 L, placed on BiPAP. Was started on furosemide, cefepime, azithromycin, Solumedrol. Admission blood cultures grew MSSA in 3/4 bottles, and Bacteroides fragilis in 1/4 bottles. TTE without vegetations. Metronidazole added 12/08 to cover B frag. Cefepime narrowed to cefazolin on 12/09. Noted to have L first toe and R second toe ulcers, with XRs showing no acute bony abnormalities. Repeat CXR on 12/08 showed cardiomegaly and emphysema with evidence of CHF; layering pleural effusions with dependent consolidation. Pt reported some more pain around his R JAMES and TKA. R hip XR showed a subacute/healing fracture through the greater trochanter of the R proximal femur. R knee XR showed soft tissue swelling and small joint effusion. Ortho was consulted for further evaluation--had low suspicion for periprosthetic joint infections. CT A/P with IV contrast was performed 12/09 to further work-up the Bacteroides bacteremia--noted bladder wall was thickened with surrounding inflammation, R>L pleural effusions with dependent consolidation, liver appeared cirrhotic in morphology, cortical erosion along medial cortex of R proximal femur with ~6.5 cm pocket of adjacent fluid which is pathologically indeterminate and could potentially represent bursal fluid but sterility cannot be assessed by imaging, and an indeterminate 6 cm ovoid cystic structure in subcutaneous soft tissues along inferior R gluteal crease which is indeterminate and could potentially represent pilonidal cyst. Pulm was consulted--felt his pleural effusions were chronic and small, did not feel pt needed a thoracentesis. Recommended diuretics and treating for CAP. Surgery was consulted regarding concern for pilonidal cyst. They felt the appearance on CT did not look like abscess, and on exam there were no signs of infection. They feel this may be an uninfected fluid collection like small coccygeal cyst, without need for acute surgical intervention. Could consider aspiration, although there is concern that this could risk introducing infection to the collection. Discussion: Unclear source of MSSA and Bacteroides fragilis bacteremia. MSSA could be from pneumonia, but Bacteroides fragilis is not a typical finding in pneumonia (unless in the setting of aspiration or empyema, but even then is unusual). Bacteroides is typically GI bi, but pt denies abdominal pain, diarrhea. Blood cultures cleared quickly. TTE without vegetations. Has chronic R hip and R knee pain in the setting of R JAMES and R TKA, unchanged, without signs of infection there on exam. Also consider toe ulcers, or pilonidal cyst as potential sources. Has toe ulcerations without surrounding SSTI, and XR without signs of bony erosion--noting however that XR is not the best imaging modality to detect osteomyelitis. Also with CT A/P showing concern for pilonidal cyst, which surgery feels is not infected--no erythema, no pain. Recommendations: - STERLING to rule out endocarditis if possible - Continue cefazolin 2 g IV q8h to cover MSSA - Continue metronidazole 500 mg IV q8h to cover Bacteroides fragilis - Anticipate pt will need to discharge on IV cefazolin for MSSA bacteremia, perhaps for 4 week course if STERLING negative. Metronidazole may be able to be converted to PO Discussed with Dr. Carvalho. Will continue to follow. Consultation Information Consultation was provided via telemedicine using two-way real-time interactive telecommunication between the patient and the telemedicine provider. For the duration of the visit, the provider was performing the assessment from a different facility than the patient. This includesuse of bluetooth stethoscope forauscultationperformed by the telepresenter that the telemedicine provider can hear if described in the physical exam. [employer] contact information: Please call [facility] . (Phone Number For Physician Use Only) After establishing a telemedicine visit, patient was: Patient was verified with two unique identifiers, Patient/authorized rep acknowledged consent and understanding and Gave permission to continue telehealth session Time Spent with Patient: Initial => 55 min History of Present Illness Reason for Consultation: Bacteremia Attending Physician: Indio Carvalho MD History of Present Illness 69 yo M with history of afib, PMR, peripheral neuropathy, pulmonary hypertension, AISHA on nightly BiPAP, HFpEF, DM2, HTN, COPD, gout, hypercholesterolemia, R JAMES, R TKA who presented on 12/05 with complaint of worsening shortness of breath x 4 days, fever. On presentation, T 36.8, HR 88, BP 91/55, RR 20s-30s, O2 sat in mid 80s, improved on Oxymask 4 L. Labs showed WBC 16.3, Cr 1.64, lactate 2, procal 2.22. UA with >50 WBCs. CXR with L>R basilar densities, may represent atelectasis or mild pneumonia; congestive changes of the cardiovascular system. Pt's respiratory status worsened in the ED with O2 sat remaining in upper 70s to low 80s despite oxymask 12 L, placed in BiPAP. Was started on furosemide, cefepime, azithromycin, Solumedrol. Admission blood cultures grew MSSA in 3/4 bottles, and Bacteroides fragilis in 1/4 bottles. TTE without vegetations. Metronidazole added 12/08 to cover B frag. Cefepime narrowed to cefazolin on 12/09. Noted to have L first toe and R second toe ulcers. L foot first toe XR showed soft tissue swelling with no acute bony abnormality; chronic appearing erosion/truncation involving the tuft of the third distal phalanx. R second toe XR showed soft tissue swelling in the second toe with no acute bony abnormality. Repeat CXR on 12/08 showed cardiomegaly and emphysema with evidence of CHF; layering pleural effusions with dependent consolidation. Pt reported some more pain around his R JAMES and TKA. R hip XR showed a subacute/healing fracture through the greater trochanter of the R proxi mal femur. R knee XR showed soft tissue swelling and small joint effusion. Ortho was consulted for further evaluation--had low suspicion for periprosthetic joint infections. CT A/P with IV contrast was performed 12/09 to further work-up the Bacteroides bacteremia--noted bladder wall was thickened with surrounding inflammation, R>L pleural effusions with dependent consolidation, liver appeared cirrhotic in morphology, cortical erosion along medial cortex of R proximal femur with ~6.5 cm pocket of adjacent fluid which is pathologically indeterminate and could potentially represent bursal fluid but sterility cannot be assessed by imaging, and an indeterminate 6 cm ovoid cystic structure in subcutaneous soft tissues along inferior R glutal crease which is indeterminate and could potentially r epresent pilonidal cyst. Pulm was consulted--felt his pleural effusions were chronic and small, did not feel pt needed a thoracentesis. Recommended diuretics and treating for CAP. Surgery was consulted regarding concern for pilonidal cyst. They felt the appearance on CT did not look like abscess, and on exam there were no signs of infection. They feel this may be an uninfected fluid collection like small coccygeal cyst, without need for acute surgical intervention. Could consider aspiration, although there is concern that this could risk introducing infection to the collection. Allergies Allergy/AdvReac Type Severity Reaction Status Date / Time dicyclomine [From Bentyl] Allergy Unknown CAN'T Verified 12/05/24 20:29 REMEMBER Home Medications Medication Instructions Recorded Confirmed Type albuterol sulfate 90 mcg/actuation 2 inh inhalation Q4H PRN shortness 03/18/23 12/05/24 Rx breath activated powder inhaler of breath or wheezing #1 ea oxygen #2 ea 04/28/23 10/26/24 Rx diltiazem HCl 180 mg 180 mg PO DAILY #90 caps 03/12/24 12/05/24 Rx capsule,extended release 24 hr empagliflozin 10 mg tablet 10 mg PO QAM #30 tabs 03/12/24 12/05/24 Rx (Jardiance) fluticasone fur. 100 mcg-umeclid 1 inh inhalation DAILY #60 ea 03/12/24 12/05/24 Rx 62.5 mcg-vilant 25 mcg inhalat.powder (Trelegy Ellipta) metformin 500 mg tablet 500 mg PO BID #180 tabs 03/12/24 12/05/24 Rx rivaroxaban 20 mg tablet (Xarelto) 20 mg PO DAILY #30 tabs 03/12/24 12/05/24 Rx allopurinol 300 mg tablet 300 mg PO BID #180 tabs 04/11/24 12/05/24 Rx atorvastatin 10 mg tablet 10 mg PO QPM #90 tabs 04/11/24 12/05/24 Rx furosemide 80 mg tablet 80 mg PO DAILY #180 tabs 04/11/24 12/05/24 Rx metoprolol tartrate 100 mg tablet 100 mg PO BID #180 tabs 04/11/24 12/05/24 Rx blood sugar diagnostic (OneTouch #100 ea 06/07/24 10/26/24 Rx Ultra Test strips) lancets #100 ea 06/07/24 10/26/24 Rx lisinopril 5 mg tablet 5 mg PO DAILY #90 tabs 06/07/24 12/05/24 Rx duloxetine 30 mg capsule,delayed 30 mg PO DAILY #30 caps 12/03/24 12/05/24 Rx release acetaminophen 500 mg tablet 1,000 mg PO TID PRN pain 12/05/24 12/05/24 History (Tylenol Extra Strength) Patient History Medical History Encounter for pre-operative examination History of cor pulmonale Other secondary pulmonary hypertension Echo/RHC 04/2023 Type II/III Follows with [facility] pulm. Per visit 04/2023, "Predominantly he has pulmonary hypertension is postcapillary due to diastolic heart failure. Treatment of this syndrome is maintaining an adequate volume status." Lumbar spinal stenosis DJD (degenerative joint disease) Hx of diabetic foot ulcer Hx of left foot ulcer "resolved" per patient- no active infection/ulcer Monitored/following with [facility] for ankle and foot care Venous insufficiency Osteoarthritis Diabetes Hyperlipidemia HTN (hypertension) Hx of gout History of COVID-19 (01/2023) Hospitalized x 3 days at [facility] AISHA (obstructive sleep apnea) BIPAP (compliant) Surgical History Hx of total knee replacement 10/11/23 History of lumbar fusion (2008) Hx of cardiac catheterization (04/26/23) RHC- Significantly elevated pulmonary capillary wedge pressure. Significantly elevated pulmonary arterial pressure and pulmonary vascular resistance. Significantly elevated right ventricular end-diastolic pressure and right atrial pressure. Recommend continue diuresis for volume overload. Additional recommendations regarding elevated pulmonary vascular resistance per pulmonary medicine team. H/O total hip arthroplasty Right History of vasectomy Family History Mother Coronary heart disease Hypertension Diabetes Denies family history of Ovarian cancer Prostate cancer Myocardial infarction Breast cancer Colorectal cancer Social History Smoking Status: Former smoker Tobacco Type: Cigarettes Age Started Using Tobacco: 10; Age Quit Using Tobacco: 48; packs per day: 2.5; Second Hand Exposure: Yes; Do You Dip or Chew Tobacco: No; Hx Alcohol Use: No Hx Substance Use: No Preferred Language: Burundian Communication Ability: Effective Visual Impairment: No Limitations File Clerk Data Entry Required: No Beliefs That Will Affect Care: None marital status: Current Living Situation: Spouse Current Living Situation Comment: and brother in law current occupational status: disabled Feels Safe at Home: Yes Childhood Exposure to Second-Hand Smoke: Yes Diet: DASH caffeine: Yes Seatbelt Use: always Sunscreen Use: No Assistive Devices: Cane, Walker and Other Review of System A complete ROS was performed and is negative except as mentioned in the HPI. Physical Exam Physical Exam: GEN: Well-appearing, in NAD. HEENT: NC in place RESP: No increased work of breathing ABD: Soft, non-distended. Non-tender to palpation. EXT: R knee without erythema or drainage or warmth. SKIN: L great toe plantar ulcer with surrounding ecchymosis, some serosanguineous drainage on dressing. R second toe superficial ulcer. Fluctuant area at top of gluteal cleft, no erythema. NEURO: Alert and oriented. Answers all questions appropriately. Speech not slurred. PSYCH: Normal mood, affect appropriate. Results & Data Vital Signs (Past 12 Hours) Vital Signs Temp Pulse Resp BP Pulse Ox O2 Del Method O2 Flow Rate 12/10/24 04:11 36.6 C 95 H 19 103/69 95 Oxymask 4 12/10/24 00:20 36.9 C 119 H 19 117/80 90 BiPAP 12/09/24 21:11 Oxymask 3 12/09/24 20:08 36.4 C L 98 H 20 124/76 96 Oxymask 4 Laboratory Results Short CBC 12/09/24 12/10/24 Range/Units 05:31 05:24 WBC 15.19 H 14.72 H (4.8-10.8) K/ul Hgb 10.2 L 10.8 L (14.0-18.0) g/dl Hct 30.5 L 32.0 L (42.0-52.0) % Plt Count 251 282 (130-400) K/uL BMP 12/09/24 12/10/24 05:31 05:24 Sodium 138 137 Potassium 4.3 3.9 Chloride 101 99 Carbon Dioxide 28 31 BUN 67 H 55 H Creatinine 1.45 H 1.31 Glucose 108 H 127 H Calcium 9.3 9.4 Liver Function 12/10/24 Range/Units 05:24 Total Bilirubin 0.7 (0.2-1.0) mg/dl AST 10 L (13-39) U/L ALT 11 (7-52) U/L Alkaline Phosphatase 99 (34-104) U/L Albumin 2.8 L (3.4-5.0) gm/dl Diagnostic Findings Toe X-Ray 12/08/24 10:17 LEFT FIRST TOE 3 VIEWS CLINICAL HISTORY: First toe ulcer. FINDINGS: 3 views of the left first toe are obtained. No prior studies are available for comparison at the time of dictation. The skeletal structures are osteopenic. No fracture is seen. No bony erosion or periostitis is identified in the first toe. There is chronic appearing erosion/truncation involving the tuft of the third distal phalanx. There is moderate to severe osteoarthritic change at the first metatarsophalangeal joint with bony overgrowth and sclerosis. Mild soft tissue swelling is suggested in the left toes. No radiodense foreign body is seen. IMPRESSION: 1. Soft tissue swelling with no acute bony abnormality identified in the first toe. 2. There is chronic appearing erosion/truncation involving the tuft of the third distal phalanx. Correlate clinically. Electronically signed by: Nolan Danielson M.D. 12/08/2024 1:52 PM Toe X-Ray 12/08/24 10:17 RIGHT SECOND TOE 3 VIEWS CLINICAL HISTORY: Second toe ulcer. FINDINGS: 3 views of the right second toe are obtained. No prior studies are available for comparison at the time of dictation. The skeletal structures are osteopenic. No fracture is seen. No bony erosion or periostitis is identified. There is moderate to severe osteoarthritic change at the first metatarsophalangeal joint with bony overgrowth and sclerosis. Soft tissue swelling is noted in the second toe. No radiodense foreign body is seen. IMPRESSION: Soft tissue swelling in the second toe with no acute bony abnormality identified.. Electronically signed by: Nolan Danielson M.D. 12/08/2024 12:52 PM Duplex Scan Lower Extremity Artery 12/08/24 10:18 ULTRASOUND BILATERAL LOWER EXTREMITY ARTERIAL; ANKLE BRACHIAL INDICES CLINICAL HISTORY: Foot ulcers. COMPARISON STUDY: No priors. TECHNIQUE: Real-time grayscale and color Doppler sonography of the arteries of the right and left lower extremity is performed from the inguinal crease to the foot. Ankle-brachial indices were assessed. FINDINGS: Ankle brachial indices: Right brachial pressure measures 103. Pressures in the right posterior tibial artery measured 128 for an HEBERT of 1.24 impression the right dorsalis pedis measurement 104 for an HEBERT of 1.01. Pressures in the left posterior tibial artery measure 134 for an HEBERT of 1.30, and pressures and left dorsalis pedis measure 108 for an HEBERT of 1.05. Right lower extremity: There is only mild atherosclerotic plaque and irregularity. Triphasic waveforms are seen in the common femoral artery with velocities measuring up to 71 cm/s. The profunda femoris artery is patent with velocities measuring up to 50 cm/s. There are triphasic waveforms throughout the superficial femoral and popliteal arteries. Velocities in the superficial femoral artery measure up to 59 cm/s and velocities in the popliteal artery measure up to 47 cm/s. There is three-vessel runoff to the foot. Velocities within the calf arteries measure up to 98 cm/s. The dorsalis pedis artery is patent with velocities measuring up to 16 cm/s. Left lower extremity: There is mild atherosclerotic plaque and irregularity. Triphasic waveforms are seen in the common femoral artery with velocities measuring up to 61 cm/s. The profunda femoris artery is patent with velocities measuring up to 47 cm/s. There are triphasic waveforms throughout the superficial femoral and popliteal arteries. Velocities in the superficial femoral artery measure up to 75 cm/s and velocities in the popliteal artery measure up to 55 cm/s. There is three-vessel runoff to the foot. Velocities throughout the calf arteries measure up to 147 cm/s. The dorsalis pedis artery is patent with velocities measuring up to 54 cm/s. IMPRESSION: 1. There is no sonographic evidence of high-grade stenosis or focal vessel cut off throughout the arteries of the right or left lower extremity. 2. Ankle brachial indices as above. Electronically signed by: Nolan Danielson M.D. 12/08/2024 3:56 PM Chest X-Ray 12/08/24 10:24 SINGLE VIEW CHEST CLINICAL HISTORY: Hypoxia FINDINGS: An AP, portable, upright chest radiograph is compared to study dated 12/05/2024 and correlated with chest CT dated 04/24/2023. The examination is degraded by portable technique and apical lordotic positioning. The heart is enlarged noting atherosclerotic calcification of the thoracic aorta. There is pulmonary vascular congestion. Emphysema and chronic interstitial thickening is similar to previous. There are layering pleural effusions with dependent consolidation. Calcific granulomas are unchanged. No pneumothorax is seen. The skeletal structures are osteopenic. The bony thorax is grossly intact. IMPRESSION: 1. Cardiomegaly and emphysema with evidence of congestive failure. 2. Layering pleural effusions with dependent consolidation. Radiographic follow- up to resolution is recommended. ACT 112: Negative or not required by law. Electronically signed by: Nolan Danielson M.D. 12/08/2024 1:16 PM Hip/Pelvis X-Ray 12/08/24 10:34 SINGLE VIEW PELVIS; 2 VIEWS RIGHT HIP CLINICAL HISTORY: Right hip pain. Bacteremia. FINDINGS: An AP view of the pelvis with AP and frog leg views of the right hip are compared to study dated 09/07/2024. The skeletal structures are osteopenic. A bipolar right hip arthroplasty is in near anatomic alignment. No periprosthetic lucency is seen. There is a subacute/healing horizontal fracture through the greater trochanter of the right proximal femur. The bony pelvis and left hip appear intact. Mild arthritic change is seen in the left hip. Degenerative sc lerosis is noted in the sacroiliac joints. Postsurgical change is seen at the lumbosacral junction. Enthesophytes arise from the anterior superior iliac spines. Mild soft tissue edema overlies the right hip. Clips project over the scrotum. IMPRESSION: 1. There is a subacute/healing horizontal fracture through the greater trochanter of the right proximal femur. 2. A bipolar right hip arthroplasty is in near anatomic alignment. 3. Additional findings as above. Electronically signed by: Nolan Danielson M.D. 12/08/2024 10:55 AM Knee X-Ray 12/08/24 10:35 RIGHT KNEE 2 VIEWS CLINICAL HISTORY: Right knee pain. Bacteremia. FINDINGS: AP and crosstable lateral views of the right knee are compared to study dated 09/07/2024. The skeletal structures are osteopenic. No fracture is seen. A right knee arthroplasty is in near anatomic alignment. There has been undersurface remodeling of the patella. No periprosthetic lucency is seen. There is a joint effusion, with soft tissue swelling seen around the knee. Mild atherosclerotic calcification is observed in the popliteal artery. IMPRESSION: 1. Soft tissue swelling and small joint effusion with no acute bony abnormality identified. 2. A right knee arthroplasty is in near anatomic alignment. Electronically signed by: Nolan Danielson M.D. 12/08/2024 10:48 AM Abdomen/Pelvis CT 12/09/24 08:52 CT SCAN OF THE ABDOMEN AND PELVIS WITH IV CONTRAST CLINICAL HISTORY: Bacteremia. COMPARISON STUDY: Abdominal ultrasound dated 03/21/2013. Chest CT dated 04/20/2023. TECHNIQUE: Following the IV administration of 94 cc of Optiray 320, CT scan of the abdomen and pelvis is performed from the lung bases to the proximal femora. Images are reviewed in the axial, sagittal, and coronal planes. IV contrast was administered without complication. A dose lowering technique was utilized adhering to the principles of ALARA. CT DOSE: 1674.72 mGy.cm FINDINGS: Lung bases: The heart is enlarged and without pericardial effusion. There is coronary artery atherosclerosis. Calcified hilar lymph nodes are seen on the left. Emphysematous change is seen at the lung bases. There is a large calcified granuloma in the left upper lobe. There are small pleural effusions with dependent consolidation, right side larger than left. There is a small hiatal hernia. Gynecomastia is noted. Liver: The contrast-enhanced liver is enlarged, measuring 19 cm in length. Attenuation is heterogeneously diminished indicating steatosis. Morphology is cirrhotic, with hypertrophy of the left lobe and nodularity of the surface contour. There is no intrahepatic biliary ductal dilatation. The hepatic veins and portal veins are patent. There are calcified hepatic granulomas. Gallbladder: There are calcified gallstones with no CT evidence of acute cholecystitis. Spleen: Normal in size and attenuation. Pancreas: Unremarkable. Adrenal glands: Bilateral adrenal adenomas measure up to 3.1 cm. Kidneys: The contrast enhanced kidneys are normal in size and without hydronephrosis. The kidneys enhance symmetrically. Small renal cysts measure up to 2.7 cm. Additional subcentimeter cortical hypodensities also likely represent cysts but are too small for definitive characterization. Abdominal vasculature: The abdominal aorta is normal in course and caliber noting moderate atherosclerotic calcification. Bowel: There is moderate constipation. No bowel obstruction is seen. The appendix is well-visualized and normal. Peritoneum: There is no intraperitoneal free air or abdominal ascites. Lymphadenopathy: None. Pelvic viscera: Evaluation of the pelvis is degraded by streak artifact from a right hip arthroplasty. The bladder is decompressed around a Watson catheter. I ntraluminal gas is likely related to instrumentation. The bladder wall appears thickened and there is surrounding inflammation. The prostate gland is mildly enlarged and heterogeneous. A left hydrocele is partially imaged. Surgical clips are noted along the spermatic cord bilaterally. There is a 4.4 x 6.2 x 3.7 cm ovoid cystic structure identified in the subcutaneous soft tissues along the inferior right gluteal crease seen on axial image #401. Skeletal structures: The skeletal structures are osteopenic. No lytic or blastic lesions are seen. A right hip arthroplasty is in place. There is cortical erosion along the medial aspect of the right proximal femoral cortex seen on axial image #397 with a loculated pocket of fluid at this site. This measures 5.6 x 6.4 x 3.4 cm. Bursal fluid is seen superior to the joint space in the right hip on axial image #84. Postsurgical and spondylotic change is seen throughout the lumbar spine. IMPRESSION: 1. The bladder is decompressed around a Watson catheter. The wall appears thickened and there is surrounding inflammation. Correlate with clinical findings and urinalysis. 2. Cardiomegaly and emphysema. 3. Right larger than left pleural effusions with dependent consolidation. 4. The liver is enlarged, steatotic, and cirrhotic in morphology. 5. There is cortical erosion along the medial cortex of the right proximal femur with an approximately 6.5 cm pocket of adjacent fluid. This is pathologically indeterminate, and although this could potentially represent bursal fluid the sterility cannot be assessed by imaging. Clinical correlation will be essential. 6. There is an indeterminant 6 cm ovoid cystic structure in the subcutaneous soft tissues along the inferior right gluteal crease. This is of indeterminate etiology, chronicity, and significance and could potentially represent a pilonidal cyst. 7. Cholelithiasis. 8. Additional findings as above. ACT 112: Negative or not required by law. Electronically signed by: Nolan Danielson M.D. 12/09/2024 1:58 PM Medications Administered Current Inpatient Medications Acetaminophen (Acetaminophen 500 Mg Tab) 1,000 mg PO TID PRN PRN Reason: Pain or Fever Stop: 01/04/25 23:49 Last Admin: 12/09/24 08:41 Dose: 1,000 mg Albuterol (Albuterol Hfa 8 Gm Inhaler) 2 puffs INH Q4H PRN PRN Reason: shortness of breath/wheezing Stop: 01/04/25 23:54 Albuterol (Albut/Ipratrop 3mg/0.5mg Neb 3 Ml Vial) 3 ml NEB Q2R PRN; Protocol PRN Reason: shortness of breath, wheezing Stop: 01/07/25 13:05 Allopurinol (Allopurinol 300 Mg Tab) 300 mg PO BID IVETH Stop: 01/04/25 23:49 Last Admin: 12/09/24 21:02 Dose: 300 mg Atorvastatin Calcium (Atorvastatin 10 Mg Tab) 10 mg PO QPM IVETH Stop: 01/04/25 23:49 Last Admin: 12/09/24 21:02 Dose: 10 mg Dextrose (Dextrose 50% 50 Ml Syringe) 25 - 50 ml IV UD PRN; Protocol PRN Reason: Hypoglycemia Protocol Stop: 01/04/25 23:49 Diltiazem HCl (Diltiazem Hcl 180 Mg Capcr) 180 mg PO DAILY IVETH Stop: 01/05/25 08:59 Last Admin: 12/09/24 08:43 Dose: 180 mg Duloxetine HCl (Duloxetine Hcl 30 Mg Cap) 30 mg PO Q48H [facility] Stop: 01/09/25 08:59 Empagliflozin (Empagliflozin 10 Mg Tab) 10 mg PO QAM IVETH Stop: 01/05/25 08:59 Last Admin: 12/09/24 08:43 Dose: 10 mg Fluticasone Furoate (Fluticasone Furoate 100mcg 14 Puffs/Inhaler) 1 puffs INH DAILY IVETH Stop: 01/05/25 08:59 Last Admin: 12/09/24 08:42 Dose: 1 puffs Furosemide (Furosemide 40 Mg/4 Ml Vial) 80 mg IV QAM IVETH Stop: 01/07/25 14:29 Last Admin: 12/09/24 08:43 Dose: 80 mg Glucagon (Glucagon For Inj 1 Mg Vial) 1 mg SQ UD PRN; Protocol PRN Reason: Hypoglycemia Protocol Stop: 01/04/25 23:49 Glucose (Glucose 40% Gel 15 Gm Tube) 15 - 30 gm PO UD PRN; Protocol PRN Reason: Hypoglycemia Protocol Stop: 01/04/25 23:49 Last Admin: 12/07/24 16:22 Dose: 15 gm Glucose (Glucose 10 Tab/Tube) 4 - 8 tab PO UD PRN; Protocol PRN Reason: Hypoglycemia Protocol Stop: 01/04/25 23:49 Metronidazole (Flagyl) 500 mg in 100 mls @ 100 mls/hr IV Q8H [facility]; Protocol Stop: 12/22/24 13:59 Last Infusion: 12/10/24 07:01 Dose: Infused Cefazolin Sodium (Ancef 2000mg) 2,000 mg in 15 mls @ 3.75 mls/min IV Q8H [facility] Stop: 12/23/24 16:59 Last Admin: 12/10/24 00:51 Dose: 3.75 mls/min Insulin Aspart (Insulin Aspart Per Unit Charge) 0 units SC ACHS [facility] Stop: 01/05/25 07:29 Last Admin: 12/09/24 20:58 Dose: Not Given Metoprolol Tartrate (Metoprolol Tartrate 100 Mg Tab) 100 mg PO BID [facility] Stop: 01/04/25 23:49 Last Admin: 12/09/24 21:02 Dose: 100 mg Miscellaneous (Carbohydrates For Hypoglycemia ) 15 - 30 gm PO UD PRN PRN Reason: Hypoglycemia Protocol Stop: 01/04/25 23:49 Last Admin: 12/07/24 16:20 Dose: 15 gm Miscellaneous Information (Pharmacy Glycemic Mgmt Consult) 1 each N/A UD PRN; Protocol PRN Reason: Consult Stop: 01/05/25 14:33 Pantoprazole Sodium (Pantoprazole 40 Mg Tab) 40 mg PO QAM IVETH Stop: 01/08/25 08:59 Last Admin: 12/09/24 08:44 Dose: 40 mg Polyethylene Glycol (Polyethylene (Miralax) 17 Gm Pack) 17 gm PO DAILY PRN PRN Reason: Constipation Stop: 01/05/25 17:14 Last Admin: 12/09/24 16:52 Dose: 17 gm Rivaroxaban (Rivaroxaban 20 Mg Tab) 20 mg PO DAILY IVETH Stop: 01/05/25 08:59 Last Admin: 12/08/24 09:22 Dose: 20 mg Spironolactone (Spironolactone 25 Mg Tab) 25 mg PO QAM IVETH Stop: 01/09/25 08:59 Tamsulosin HCl (Tamsulosin Hcl 0.4 Mg Cap) 0.4 mg PO HS IVETH Stop: 01/05/25 20:59 Last Admin: 12/09/24 21:02 Dose: 0.4 mg Umeclidinium/Vilanterol (Umeclidinium/Vilanterol 62.5/25mcg 7 Puffs/Inhaler) 1 puffs INH DAILY IVETH Stop: 01/05/25 08:59 Last Admin: 12/09/24 08:42 Dose: 1 puffs (2) Pneumonia Laterality: unspecified laterality Lung location: unspecified part of lung Pneumonia type: due to unspecified organism Qualified Code(s): J18.9 - Pneumonia, unspecified organism
[2024-12-10 06:23] LABS: Hematocrit (blood only) 32.0 % (42.0-52.0); Hemoglobin 10.8 g/dl (14.0-18.0); Immature Granulocytes # (auto) 0.28 K/uL (0.01-0.20); Immature Granulocytes % (auto) 1.9 %; Mean Corpuscular Hemoglobin 31.3 pg (25.0-34.0); Mean Corpuscular Volume 92.8 fL (80.0-100.0); Platelet Count 282 K/uL (130-400); RDW Standard Deviation 61.1 fL (36.4-46.3); Red Blood Count 3.45 M/uL (4.70-6.10); White Blood Count 14.72 K/ul (4.8-10.8)
[2024-12-10 06:44] LABS: Alanine Aminotransferase 11.0 U/L (7-52); Albumin Globulin Ratio 0.8 (0.9-2); Albumin Level 2.8 gm/dl (3.4-5.0); Alkaline Phosphatase 99.0 U/L (34-104); Anion Gap 7.0 (3-11); Bilirubin,Total 0.7 mg/dl (0.2-1.0); Blood Urea Nitrogen 55.0 mg/dl (6-23); Calcium 9.4 mg/dl (8.6-10.3); Carbon Dioxide 31.0 mmol/L (21-32); Chloride 99.0 mmol/L (98-107); Creatinine Clr Calc Pharmacy 68.0 ml/min; Globulin 3.5 gm/dl (2.5-4.0); Glucose 127.0 mg/dl (70-99(Fasting)); Potassium 3.9 mmol/L (3.5-5.1); Sodium 137.0 mmol/L (136-145); Total Protein 6.3 gm/dl (6.0-8.3)
[2024-12-10] MEDS: SPIRONOLACTONE 25 MG TAB PO SCH (08:35)
--- NOTE | 2024-12-10 17:05 | Hospitalist Progress Note ---
Date of Service December 10, 2024 Assessment & Plan (1) Acute respiratory failure with hypoxia: (2) Pneumonia: (3) CHF exacerbation: (4) Urinary retention due to benign prostatic hyperplasia: Plan The patient is a 69-year-old male presents to the ER with shortness of breath for 4 days with fever and hypoxia. Patient typically wears BiPAP 17/13 at home but on room air at baseline. #Staph aureus (MSSA) bacteremia (PCR MRSA negative) + bacteroides fragilis Suspected source pneumonia. Appreciate orthopedic and pulm consults - no plan on joint aspiration or thoracentesis which agree I do not feel these are necessary especially with him clearing cultures already XR 1st toe left foot and 2nd toe right foot did not show osteomyelitis - wound care consulted Right gluteal ovoid cystic structure - do not suspect infected on exam and general surgery agree No vegetation seen on echocardiogram Repeat blood cultures negative at 48 hours however ID requested another set 12/09 now negative @ 24 hours Previously on cefepime (+ a few days of vancomycin), started cefazolin 12/09 (likely to need 4-6 weeks of treatment) Added metronidazole IV for bacteroides coverage 12/08, can likely be switched to PO on discharge Appreciate infectious disease consult - plan on transesophageal echocardiogram to assess for infectious endocarditis #Toe ulcers Wound care consult. US arterial dopplers without significant stenosis #Acute respiratory failure with hypoxia/ acute HFpEF exacerbation/pneumonia/chronic BiPAP- Room air at baseline. Improving oxygenation - Wean O2 as able to keep sat 88- 92%, currently with a sat of 99% on 3L Continue BiPAP HS, incentive spirometry q1h Antibiotics as above Strict I&Os - net negative 3220ml Daily standing weights 105.6kg (first day standing) He met minor criteria for severe pneumonia on admission therefore started on steroids however given bacteremia and no concern for ARDS now discontinued #BPH with urinary retention- Placed Watson catheter in the ED, will trial without catheter and take out at 11pm tonight (do not replace overnight, just contact physician in AM with a bladder scan if not yet passed urine) Patient reports that outpatient feeling as duloxetine has been contributing, and is presently on a tapering schedule. Continue duloxetine tapering to q48h. Started tamsulosin #Chronic atrial fibrillation/hypertension- Continue Xarelto, metoprolol titrate and diltiazem Hold lisinopril due to low normal BP #COPD - do not suspect exacerbation Duonebs to PRN Continue Trelegy Ellipta MRSA swab pending #Type 2 Diabetes mellitus- Hold metformin Continue Jardiance HbA1C 6.7 Appreciate pharmacy glycemic consult #Hyperlipidemia Continue atorvastatin Check a fasting lipid panel #Neuropathy Is presently on tapering schedule duloxetine due to concerns regarding exacerbation of urinary retention #Chronic gout Continue allopurinol VTE Prophylaxis - Xarelto Disposition - continue on PCU for ongoing diuresis, PT/OT Admission and Anticipated Discharge Date Admission Date: December 05, 2024 Subjective Shortness of breath significantly improved with intravenous diuretics and spironolactone added. Weaning down on the oxygen. No fever or chills. Physical Exam Constitutional: WD/WN, vitals as above ENMT: external ear and nose normal, oropharynx normal Respiratory: normal respiratory effort, lungs clear to auscultation Cardiovascular: Rate/Rhythm: regular rate and + irregularly irregular Heart Sounds: no murmur Extremities: normal capillary refill; no calf tenderness and no pedal edema Gastrointestinal (Abdomen): normal bowel sounds, soft, nontender, no hepatosplenomegaly Neurologic: moves all extremities and awake; not confused Psychiatric: A+Ox3, euthymic affect Results & Data Results & Data Vital Signs (Past 12 Hours) Vital Signs Temp Pulse Pulse Resp BP Pulse Ox O2 Del Method 12/10/24 16:07 36.7 C 82 18 102/69 99 Nasal Cannula 12/10/24 15:49 Nasal Cannula 12/10/24 15:49 78 12/10/24 11:10 36.6 C 75 18 97/62 L 98 Room Air 12/10/24 07:49 Oxymask 12/10/24 07:48 36.8 C 104 H 18 113/68 94 Room Air 12/10/24 07:48 85 O2 Flow Rate 12/10/24 16:07 3 12/10/24 15:49 6 12/10/24 15:49 12/10/24 11:10 12/10/24 07:49 3 12/10/24 07:48 12/10/24 07:48 PG Care Time/CCT Total # of Minutes Spent Total Time Spent with Patient: Total time spent is greater than 50% in coordination of care (as documented) at patient's floor/unit and/or counseling patient: Coding Level of Care Code 31060 SUB INP/OBS CARE 2/35MIN Diagnoses Acute respiratory failure with hypoxia J96.01 Pneumonia J18.9 CHF exacerbation I50.9 Urinary retention due to benign prostatic hyperplasia N40.1; R33.8
[2024-12-11] MEDS: INSULIN ASPART PER UNIT CHARGE SC SCH ×2 (08:01→17:48)
--- NOTE | 2024-12-11 11:36 | Orthopedic Progress Note ---
Date of Service December 11, 2024 Assessment & Plan (1) Periprosthetic fracture around internal prosthetic right hip joint: Plan: 69-year-old gentleman admitted with pneumonia, hypoxia, bacteremia with persistent right leg pain of unclear etiology. I seen him multiple times in outpatient really have not been able to figure this out. Bone scan was consistent with the greater trochanter fracture but the symptoms really never resolved. The implant appears fixed. Clinically there is does not appear to be infection around the hip or the knee. He apparently does have this fluid collection in his upper femur of unclear etiology. Plan: At this point I would continue to recommend continued current management with as per ID. I think it is worth that an attempted aspiration of this fluid pocket under ultrasound if possible. It is nothing we can do at bedside this is too deep and would not be able to localize. Discussed this with the medicine doctors and they are going to try and get radiology to aspirate this and send it off for cell count with a differential Gram stain aerobic anaerobic culture. Otherwise he can continue weightbearing as tolerated. Will see what this shows. Continue antibiotic management. Any orthopedic questions can be directly [phone]. 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 He has had this relatively subacute right hip and leg pain of unclear etiology. Is been through extensive workup as an outpatient without any real clear reason. He did have a greater trochanter fracture several months ago but has had persistent pain. His sed rate and CRP have been elevated. We have been treated with some steroids intermittently which initially helped but not anymore. He has not been admitted with his pneumonia, hypoxic, and bacteremia. He is doing pretty well this morning. He really has no pain currently in his leg but does report that his has got thigh pain with weightbearing. He did have a CT scan of his pelvis which shows a fluid collection around the upper femur. Physical Exam Physical Exam: Physical exam shows a pleasant elderly male. He is lying in bed looks pretty comfortable this morning. Examination of the right knee and hip revealed both incision sites to be healed nicely without any swelling redness or warmth. He is got no real knee joint effusion. He does seem to have some pain with hip motion. There is no redness or warmth. He is neurologically intact. Results & Data Vital Signs (Past 12 Hours) Vital Signs Temp Pulse Pulse Resp BP Pulse Ox O2 Del Method 12/11/24 09:31 Room Air 12/11/24 08:00 85 12/11/24 07:17 36.8 C 89 18 112/69 97 Room Air O2 Flow Rate 12/11/24 09:31 3 12/11/24 08:00 12/11/24 07:[address] scan was reviewed. Does show that he is got a small pocket of fluid around the upper femur. Etiology unclear. (1) Periprosthetic fracture around internal prosthetic right hip joint Encounter type: initial encounter Qualified Code(s): M97.01XA - Periprosthetic fracture around internal prosthetic right hip joint, initial encounter
--- NOTE | 2024-12-11 13:40 | Hospitalist Progress Note ---
Date of Service December 11, 2024 Assessment & Plan (1) Acute respiratory failure with hypoxia: (2) Pneumonia: (3) CHF exacerbation: (4) Urinary retention due to benign prostatic hyperplasia: Plan The patient is a 69-year-old male presents to the ER with shortness of breath for 4 days with fever and hypoxia. Patient typically wears BiPAP at home but on room air at baseline. #Staph aureus (MSSA) bacteremia + bacteroides fragilis (02/24) Suspected source pneumonia. Appreciate orthopedic and pulm consults - no plan on joint aspiration or thoracentesis which agree I do not feel these are necessary especially with him clearing cultures already XR 1st toe left foot and 2nd toe right foot did not show osteomyelitis - wound care consulted Right gluteal ovoid cystic structure - do not suspect infected on exam and general surgery agree No vegetation seen on echocardiogram Repeat blood cultures x4 negative at 48 hours Appreciate infectious disease consult Previously on cefepime (+ a few days of vancomycin), started cefazolin 12/09 (likely to need 4-6 weeks of treatment pending STERLING and hip fluid collection workup) Added metronidazole IV for bacteroides coverage 12/08, can likely be switched to PO on discharge US guided hip fluid aspiration today Pending further investigation and duration of antibiotics will determine type of IV we will place to send him home on Discussed with cardiology and plan on STERLING tomorrow #Toe ulcers Wound care consult. US arterial dopplers without significant stenosis. Could consider #Acute respiratory failure with hypoxia/ acute HFpEF exacerbation/pneumonia/chronic BiPAP- Room air at baseline. Improving oxygenation - Wean O2 as able to keep sat 88- 92%, currently with a sat of 91% on room air He met minor criteria for severe pneumonia on admission therefore started on steroids however given bacteremia and no concern for ARDS now discontinued Continue BiPAP HS, incentive spirometry q1h Antibiotics as above Continue Lasix 80mg IV daily and spironolactone 25mg PO daily Pulmonology recommending right heart cath but this can be done as an outpatient Strict I&Os - net negative 1860ml last 24 hours Daily standing weights (difficult to compare so far as previously using bedscale #BPH with urinary retention- Watson catheter removed 12/10 overnight - will perform PVR bladder scans for the next few days Patient reports that outpatient feeling as duloxetine has been contributing, and is presently on a tapering schedule. Continue duloxetine tapering to q48h. Continue tamsulosin - newly started this admission, consider urology follow up on discharge #Chronic atrial fibrillation/hypertension- Continue Xarelto, metoprolol titrate and diltiazem, rates well controlled Hold lisinopril due to low normal BP #COPD - do not suspect exacerbation Duonebs to PRN Continue Trelegy Ellipta MRSA swab pending #Type 2 Diabetes mellitus- Hold metformin Continue Jardiance HbA1C 6.7 Appreciate pharmacy glycemic consult - consider discontinuing insulin now off steroids given not needing significant doses anymore #Hyperlipidemia Continue atorvastatin #Neuropathy Is presently on tapering schedule duloxetine due to concerns regarding exacerbation of urinary retention #Chronic gout Continue allopurinol VTE Prophylaxis - Xarelto Disposition - continue on PCU for ongoing diuresis, PT/OT Admission and Anticipated Discharge Date Admission Date: December 05, 2024 Subjective Watson catheter removed last night. Having some dribbling since then but he reports that isn't unusual for him. Had hip fluid drained today and reportedly "chocolate milk" came out per patient. No fever or chills. Shortness of breath continues to improve and currently on room air. Physical Exam Constitutional: WD/WN, vitals as above ENMT: external ear and nose normal, oropharynx normal Respiratory: normal respiratory effort, lungs clear to auscultation Cardiovascular: Rate/Rhythm: regular rate and + irregularly irregular Heart Sounds: no murmur Extremities: normal capillary refill; no calf tenderness and no pedal edema Gastrointestinal (Abdomen): normal bowel sounds, soft, nontender, no hepatosplenomegaly Skin: no change in toe ulcers Neurologic: moves all extremities and awake; not confused Psychiatric: A+Ox3, euthymic affect Results & Data Results & Data Vital Signs (Past 12 Hours) Vital Signs Temp Pulse Pulse Resp BP Pulse Ox O2 Del Method 12/11/24 13:19 91 12/11/24 09:31 Room Air 12/11/24 08:00 85 12/11/24 07:17 36.8 C 89 18 112/69 97 Room Air O2 Flow Rate 12/11/24 13:19 3 12/11/24 09:31 3 12/11/24 08:00 12/11/24 07:17 PG Care Time/CCT Total # of Minutes Spent Total Time Spent with Patient: Total time spent is greater than 50% in coordination of care (as documented) at patient's floor/unit and/or counseling patient: Coding Level of Care Code 53230 SUB INP/OBS CARE 2MIN Diagnoses Acute respiratory failure with hypoxia J96.01 Pneumonia J18.9 CHF exacerbation I50.9 Urinary retention due to benign prostatic hyperplasia N40.1; R33.8
--- NOTE | 2024-12-11 15:37 | Ultrasound Report ---
ULTRASOUND-GUIDED RIGHT HIP FLUID COLLECTION ASPIRATION INDICATION: Right hip fluid collection; bacteremia PROCEDURE: Procedure and risks were explained. Informed consent was obtained. Final timeout was compl eted. The right hip was prepped and draped in sterile fashion. 1% lidocaine was utilized for skin ane sthesia. Utilizing ultrasound guidance, a 5 Kiswahili safety centesis catheter was advanced into the right hip fl uid collection. Approximately 20 mL of purulent fluid was removed and sent to lab for analysis. The c atheter was removed and Band-Aid applied. The patient tolerated the procedure well. IMPRESSION: Right hip aspiration as detailed above. Performed, dictated, and signed by J Carlos Dugan PA-C; to be co-signed by Dr. Renan Gray. Electronically signed by: Renan Gray M.D. 12/11/2024 3:58 PM
[2024-12-11] MEDS: GADOBUTROL 65ML VIAL IV ONE (18:26)
--- NOTE | 2024-12-11 20:06 | Magnetic Resonance Report ---
Exam: MR left foot without and with intravenous contrast. History: First toe ulcer. Evaluate for osteomyelitis. Comparison: Plain film correlation December 08, 2024. Technique: Routine multiplanar multisequence MR images of the left foot without with intravenous contrast were obtained and reviewed. Findings: Portions of the exam are limited secondary to patient motion. Marrow signal demonstrates no occult fracture or marrow edema. No appreciated cortical disruption. Fluid-sensitive increased signal involving the subcutaneous soft tissues of the dorsal foot and to some extent along the myofascial planes of the plantar foot are noted. Slight increase fluid-sensitive signal involving the great toe soft tissues. Question small soft tissue defect along the plantar aspect of the great toe. Element of what appears to be induration at this level. Postcontrast images demonstrate no appreciated abnormal marrow or cortical enhancement. Again no drainable fluid collection is noted throughout the exam. Impression: Question small plantar great toe soft tissue defect. Elements of induration may be present. No drainable fluid collection. Mild adjacent subcutaneous edematous changes. No underlying destructive osseous or joint process. In particular, no findings to indicate osteomyelitis. Recommend surveillance plain film imaging if clinical suspicion or symptoms persist. Electronically signed by Ronnie Isaacs 12-11-2024 8:05 PM
[2024-12-11 21:19] LABS: Anion Gap 6.0 (3-11); Blood Urea Nitrogen 49.0 mg/dl (6-23); Calcium 9.2 mg/dl (8.6-10.3); Carbon Dioxide 32.0 mmol/L (21-32); Chloride 98.0 mmol/L (98-107); Creatinine Clr Calc Pharmacy 54.7 ml/min; Glucose 161.0 mg/dl (70-99(Fasting)); Potassium 3.6 mmol/L (3.5-5.1); Sodium 136.0 mmol/L (136-145)
[2024-12-11 22:06] LABS: Color Synovial Fluid Brown; Source Synovial Fluid Right Hip; WBC Synovial Fluid Manual 359000 /uL (0-200)
[2024-12-11 22:10] LABS: Mononuclear WBC Synovial Man 5 %
[2024-12-11 22:11] LABS: Polynuclear WBC Synovial Man 95 %
[2024-12-11 22:12] LABS: RBC Synovial Fluid Auto 10000 /uL
[2024-12-12 06:31] LABS: Hematocrit (blood only) 30.2 % (42.0-52.0); Hemoglobin 10.5 g/dl (14.0-18.0); Mean Corpuscular Hemoglobin 32.0 pg (25.0-34.0); Mean Corpuscular Volume 92.1 fL (80.0-100.0); Platelet Count 295 K/uL (130-400); RDW Standard Deviation 60.7 fL (36.4-46.3); Red Blood Count 3.28 M/uL (4.70-6.10); White Blood Count 18.33 K/ul (4.8-10.8)
[2024-12-12 06:42] LABS: Anion Gap 7.0 (3-11); Blood Urea Nitrogen 45.0 mg/dl (6-23); Calcium 9.2 mg/dl (8.6-10.3); Carbon Dioxide 30.0 mmol/L (21-32); Chloride 100.0 mmol/L (98-107); Creatinine Clr Calc Pharmacy 61.3 ml/min; Glucose 150.0 mg/dl (70-99(Fasting)); Potassium 3.7 mmol/L (3.5-5.1); Sodium 137.0 mmol/L (136-145)
--- NOTE | 2024-12-12 07:15 | Anesthesiology Consultation ---
Date of Service December 12, 2024 Assessment & Plan Chart Review Chart Review: Acceptable Risk for Surgery Consults Requested none ASA ASA4 Proposed Anesthesia Anesthesia Type: MAC Risk / Benefits Reviewed With: PT / POA / Parent / Guardian, Accepts Plan and Informed Consent Obtained History Surgery Operation Date: 12/12/24 07:30 Proposed Procedures p Transesophageal Echo w/Anesthesia - Fidel Trujillo MD Height/Weight Height: 6 ft 3 in Weight: 106.7 kg Allergies Allergy/AdvReac Type Severity Reaction Status Date / Time dicyclomine [From Bentyl] Allergy Unknown CAN'T Verified 12/05/24 20:29 REMEMBER Medications Home Medications Medication Instructions Recorded Confirmed Last Taken albuterol sulfate 90 mcg/actuation 2 inh inhalation Q4H PRN shortness 03/18/23 12/05/24 Unknown breath activated powder inhaler of breath or wheezing #1 ea oxygen #2 ea 04/28/23 10/26/24 Unknown diltiazem HCl 180 mg 180 mg PO DAILY #90 caps 03/12/24 12/05/24 12/05/24 capsule,extended release 24 hr empagliflozin 10 mg tablet 10 mg PO QAM #30 tabs 03/12/24 12/05/24 12/05/24 (Jardiance) fluticasone fur. 100 mcg-umeclid 1 inh inhalation DAILY #60 ea 03/12/24 12/05/24 12/05/24 62.5 mcg-vilant 25 mcg inhalat.powder (Trelegy Ellipta) metformin 500 mg tablet 500 mg PO BID #180 tabs 03/12/24 12/05/24 12/05/24 rivaroxaban 20 mg tablet (Xarelto) 20 mg PO DAILY #30 tabs 03/12/24 12/05/24 12/05/24 allopurinol 300 mg tablet 300 mg PO BID #180 tabs 04/11/24 12/05/24 12/05/24 atorvastatin 10 mg tablet 10 mg PO QPM #90 tabs 04/11/24 12/05/24 12/05/24 furosemide 80 mg tablet 80 mg PO DAILY #180 tabs 04/11/24 12/05/24 12/05/24 metoprolol tartrate 100 mg tablet 100 mg PO BID #180 tabs 04/11/24 12/05/24 12/05/24 blood sugar diagnostic (OneTouch #100 ea 06/07/24 10/26/24 Unknown Ultra Test strips) lancets #100 ea 06/07/24 10/26/24 Unknown lisinopril 5 mg tablet 5 mg PO DAILY #90 tabs 06/07/24 12/05/24 12/05/24 duloxetine 30 mg capsule,delayed 30 mg PO DAILY #30 caps 12/03/24 12/05/24 12/05/24 release acetaminophen 500 mg tablet 1,000 mg PO TID PRN pain 12/05/24 12/05/24 12/05/24 (Tylenol Extra Strength) Active Medications Generic Name Dose Route Start Last Admin Trade Name Freq PRN Reason Stop Dose Admin Acetaminophen 1,000 mg 12/05/24 23:50 12/10/24 08:35 Acetaminophen 500 Mg Tab PO 01/04/25 23:49 1,000 mg TID PRN Administration Pain or Fever Allopurinol 300 mg 12/05/24 23:50 12/11/24 20:57 Allopurinol 300 Mg Tab PO 01/04/25 23:49 300 mg BID IVETH Administration Atorvastatin Calcium 10 mg 12/05/24 23:50 12/11/24 20:57 Atorvastatin 10 Mg Tab PO 01/04/25 23:49 10 mg QPM IVETH Administration Diltiazem HCl 180 mg 12/06/24 09:00 12/11/24 07:54 Diltiazem Hcl 180 Mg Capcr PO 01/05/25 08:59 180 mg DAILY IVETH Administration Duloxetine HCl 30 mg 12/10/24 09:00 12/10/24 08:32 Duloxetine Hcl 30 Mg Cap PO 12/17/24 08:59 30 mg Q48H IVETH Administration Empagliflozin 10 mg 12/06/24 09:00 12/11/24 07:54 Empagliflozin 10 Mg Tab PO 01/05/25 08:59 10 mg QAM IVETH Administration Fluticasone Furoate 1 puffs 12/06/24 09:00 12/11/24 07:52 Fluticasone Furoate 100mcg 14 Puffs/Inhaler INH 01/05/25 08:59 1 puffs DAILY IVETH Administration Furosemide 80 mg 12/08/24 14:30 12/11/24 07:53 Furosemide 40 Mg/4 Ml Vial IV 01/07/25 14:29 80 mg QAM IVETH Administration Glucose 15 - 30 gm 12/05/24 23:50 12/07/24 16:22 Glucose 40% Gel 15 Gm Tube PO 01/04/25 23:49 15 gm UD PRN Administration Hypoglycemia Protocol Protocol Metronidazole 500 mg in 100 mls @ 100 mls/hr 12/08/24 14:00 12/12/24 06:16 Flagyl IV 12/22/24 13:59 100 mls/hr Q8H IVETH Administration Protocol Cefazolin Sodium 2,000 mg in 15 mls @ 3.75 mls/min 12/09/24 17:00 12/12/24 00:59 Ancef 2000mg IV 12/23/24 16:59 3.75 mls/min Q8H IVETH Administration Metoprolol Tartrate 100 mg 12/05/24 23:50 12/11/24 20:52 Metoprolol Tartrate 100 Mg Tab PO 01/04/25 23:49 Not Given BID IVETH Miscellaneous 15 - 30 gm 12/05/24 23:50 12/07/24 16:20 Carbohydrates For Hypoglycemia PO 01/04/25 23:49 15 gm UD PRN Administration Hypoglycemia Protocol Pantoprazole Sodium 40 mg 12/09/24 09:00 12/11/24 07:55 Pantoprazole 40 Mg Tab PO 01/08/25 08:59 40 mg QAM IVETH Administration Polyethylene Glycol 17 gm 12/06/24 17:15 12/09/24 16:52 Polyethylene (Miralax) 17 Gm Pack PO 01/05/25 17:14 17 gm DAILY PRN Administration Constipation Rivaroxaban 20 mg 12/06/24 09:00 12/11/24 07:53 Rivaroxaban 20 Mg Tab PO 01/05/25 08:59 20 mg DAILY IVETH Administration Spironolactone 25 mg 12/10/24 09:00 12/11/24 07:52 Spironolactone 25 Mg Tab PO 01/09/25 08:59 25 mg QAM IVETH Administration Tamsulosin HCl 0.4 mg 12/06/24 21:00 12/11/24 20:57 Tamsulosin Hcl 0.4 Mg Cap PO 01/05/25 20:59 0.4 mg HS IVETH Administration Umeclidinium/Vilanterol 1 puffs 12/06/24 09:00 12/11/24 07:52 Umeclidinium/Vilanterol 62.5/25mcg 7 Puffs/Inhaler INH 01/05/25 08:59 1 puffs DAILY IVETH Administration NPO Date Last Intake of Fluids: 12/11/24 Time Last Intake of Fluids: 23:59 Date Last Intake of Solids: 12/11/24 Time Last Intake of Solids: 23:59 Past Medical History Medical History Encounter for pre-operative examination History of cor pulmonale Other secondary pulmonary hypertension Echo/RHC 04/2023 Type II/III Follows with [facility] [place] pulm. Per visit 04/2023, "Predominantly he has pulmonary hypertension is postcapillary due to diastolic heart failure. Treatment of this syndrome is maintaining an adequate volume status." Lumbar spinal stenosis DJD (degenerative joint disease) Hx of diabetic foot ulcer Hx of left foot ulcer "resolved" per patient- no active infection/ulcer Monitored/following with [facility] for [facility] and foot care Venous insufficiency Osteoarthritis Diabetes Hyperlipidemia HTN (hypertension) Hx of gout History of COVID-19 (01/2023) Hospitalized x 3 days at [facility] AISHA (obstructive sleep apnea) BIPAP (compliant) Exercise / Class Metabolic Activity III < 4 Walking/Shop/Light housework Past Family History Family History Mother Coronary heart disease Hypertension Diabetes Denies family history of Ovarian cancer Prostate cancer Myocardial infarction Breast cancer Colorectal cancer Past Surgical History Surgical History Hx of total knee replacement 10/11/23 History of lumbar fusion (2008) Hx of cardiac catheterization (04/26/23) RHC- Significantly elevated pulmonary capillary wedge pressure. Significantly elevated pulmonary arterial pressure and pulmonary vascular resistance. Significantly elevated right ventricular end-diastolic pressure and right atrial pressure. Recommend continue diuresis for volume overload. Additional recommendations regarding elevated pulmonary vascular resistance per pulmonary medicine team. H/O total hip arthroplasty Right History of vasectomy Past Anesthesia History No Hx of Anesthesia Complications and No Family Hx of Anesthesia Complications History of PONV No Hx of PONV and No Hx of Motion Sickness Social History Smoking Status: Former smoker tobacco type: cigarettes Do You Dip or Chew Tobacco: No Hx Alcohol Use: No Hx Substance Use: No substance use type: does not use Review of Systems Constitutional: as per Subjective / HPI Respiratory: no dyspnea and no problem reported Cardiovascular: + edema; no problem reported Gastrointestinal: as per Subjective / HPI Neurologic: no paralysis, no numbness and no problem reported Physical Exam Vital Signs Last Vital Signs Temp 36.7 C 12/12/24 04:00 Pulse 101 H 12/12/24 04:00 Resp 16 12/12/24 04:00 BP 109/72 12/12/24 04:00 Pulse Ox 96 12/12/24 04:00 O2 Del Method BiPAP 12/12/24 04:00 O2 Flow Rate 3 12/11/24 21:00 FiO2 35 12/06/24 21:48 Testing Laboratory Results 12/12/24 06:02 12/12/24 06:02 PT 16.2 Seconds (9.0-12.0) H 12/06/24 06:05 INR 1.6 (0.9-1.1) H 12/06/24 06:05 APTT 40 Seconds (21-31) H 12/06/24 06:05 Hemoglobin A1c 6.7 % (4.5-5.6) H 12/06/24 06:05 Urine Color Yellow 12/05/24 21:30 Urine Appearance Clear (Clear) 12/05/24 21:30 Urine pH 5.0 (4.5-7.5) 12/05/24 21:30 Ur Specific [place] 1.015 (1.000-1.030) 12/05/24 21:30 Urine Protein 2+ (Negative) H 12/05/24 21:30 Urine Glucose (UA) 2+ (Negative) H 12/05/24 21:30 Urine Ketones Negative (Negative) 12/05/24 21:30 Urine Nitrite Positive (Negative) A 12/05/24 21:30 Ur Leukocyte Esterase 2+ (Negative) H 12/05/24 21:30 Urine WBC (Auto) >50 /hpf (0-5) H 12/05/24 21:30 Urine RBC (Auto) >20 /hpf (0-2) H 12/05/24 21:30 U Hyaline Cast (Auto) 11-20 /lpf (0-2) H 12/05/24 21:30 U Epithel Cells (Auto) 3-5 /hpf (0-2) H 12/05/24 21:30 Urine Bacteria (Auto) 4+ (None Seen) H 12/05/24 21:30 12/11/24 15:06 Gram Stain - Final Hip,Right 12/09/24 09:18 Aerobic Blood Culture - Preliminary Blood No growth in Aerobic bottle after 48 hours. Anaerobic Blood Culture - Preliminary No growth in Anaerobic bottle after 48 hours. 12/09/24 09:06 Aerobic Blood Culture - Preliminary Blood No growth in Aerobic bottle after 48 hours. Anaerobic Blood Culture - Preliminary No growth in Anaerobic bottle after 48 hours. 12/05/24 19:17 Aerobic Blood Culture - Final Blood No growth in Aerobic bottle after 5 days. Anaerobic Blood Culture - Preliminary Staphylococcus aureus Bacteroides fragilis 12/07/24 05:34 Aerobic Blood Culture - Preliminary Blood No growth in Aerobic bottle after 48 hours. Anaerobic Blood Culture - Preliminary No growth in Anaerobic bottle after 48 hours. 12/07/24 05:28 Aerobic Blood Culture - Preliminary Blood No growth in Aerobic bottle after 48 hours. Anaerobic Blood Culture - Preliminary No growth in Anaerobic bottle after 48 hours. 12/05/24 19:26 Aerobic Blood Culture - Final Blood Staphylococcus aureus Anaerobic Blood Culture - Final Staphylococcus aureus 12/05/24 21:30 Urine Culture - Final Urine,Indwelling Cath No growth - less than 1,000 colonies/mL. 12/12/24 12/11/24 06:14 20:41 POC Glucose 156 H 151 H Electrocardiogram Date: 12/07/24 Findings: + AFIB @ Atrial fibrillation Abnormal ECG When compared with ECG of 06-Dec-2024 06:01, (unconfirmed) No significant change was found Chest X-Ray Date: 12/08/24 Findings: + cardiomegaly IMPRESSION: 1. Cardiomegaly and emphysema with evidence of congestive failure. 2. Layering pleural effusions with dependent consolidation. Radiographic follow- up to resolution is recommended. Echocardiogram Date: 12/06/24 EF: 60 LV Function: normal Other Findings: + atrial enlargement Valvular Disease: + MR and + pertinent finding (Moderate TR) severe Pulm HTN
--- NOTE | 2024-12-12 07:59 | Post Operative Brief Note ---
Cardiology Brief Post Op Date of Surgery December 12, 2024 Pre & Post Diagnosis Operation Date: 12/12/24 07:30 <No data on this case meets the specified criteria> Procedure [facility] [employer] Support Specialist Fidel Trujillo MD Foreign Agent [place] Estimated Blood Loss 0 Findings See Below [place]: prelim review: No vegetation. Normal LV systolic function. Formal review and report to follow. Complications none
[2024-12-12] MEDS: BENZOCAINE/TETRACAIN/BUTAM 50 APPLN/5 GM CAN EXT ONE (08:26)
[2024-12-12] MEDS: INSULIN ASPART PER UNIT CHARGE SC SCH ×3 (09:33→17:45)
--- NOTE | 2024-12-12 10:05 | Infectious Disease Progress Nt ---
Date of Service December 12, 2024 Assessment & Plan (1) Staphylococcus aureus bacteremia: (2) Pneumonia: (3) Pilonidal cyst: (4) Diabetic foot ulcer: Plan Problems: #MSSA bacteremia #Bacteroides fragilis bacteremia #AHRF #Pneumonia #R proximal femur purulent fluid collection: noted on CT 12/09, s/p aspiration 12/11 #Pilonidal cyst #DM2 #Diabetic foot ulcers: L first toe (MRI L foot without osteomyelitis), R second toe #R JMAES #R TKA Micro: 12/09 BCx x2: NGTD 12/07 BCx x2: NGTD 12/05 UCx: NG 12/05 BCx x2: MSSA in 3/4 bottles, Bacteroides fragilis in 1/4 bottles Abx: Cefazolin 12/09 - present Metronidazole 12/08 - present Cefepime 12/05 - 12/09 Vanc 12/06 - 12/07 Azithro 12/05 - 12/07 69 yo M with history of afib, PMR, peripheral neuropathy, pulmonary hypertension, AISHA on nightly BiPAP, HFpEF, DM2, HTN, COPD, gout, hypercholesterolemia, R JAMES, R TKA who presented on 12/05 with complaint of worsening shortness of breath x 4 days, fever, found to have MSSA and Bacteroides fragilis bacteremia. On presentation, pt was afebrile with O2 sat in mid 80s, improved on Oxymask 4 L. Labs showed WBC 16.3, Cr 1.64, lactate 2, procal 2.22. UA with >50 WBCs. CXR with L>R basilar densities, may represent atelectasis or mild pneumonia; congestive changes of the cardiovascular system. Pt's respiratory status worsened in the ED with O2 sat remaining in upper 70s to low 80s despite oxymask 12 L, placed on BiPAP. Was started on furosemide, cefepime, azithromycin, Solumedrol. Admission blood cultures grew MSSA in 3/4 bottles, and Bacteroides fragilis in 1/4 bottles. TTE without vegetations. Metronidazole added 12/08 to cover B frag. Cefepime narrowed to cefazolin on 12/09. Noted to have L first toe and R second toe ulcers, with XRs showing no acute bony abnormalities. Repeat CXR on 12/08 showed cardiomegaly and emphysema with evidence of CHF; layering pleural effusions with dependent consolidation. Pt reported more pain around his R JAMES and TKA for the last few months. R hip XR showed a subacute/healing fracture through the greater trochanter of the R proximal femur. R knee XR showed soft tissue swelling and small joint effusion. Ortho was consulted for further evaluation--had low suspicion for periprosthetic joint infections. CT A/P with IV contrast was performed 12/09 to further work-up the Bacteroides bacteremia--noted bladder wall was thickened with surrounding inflammation, R>L pleural effusions with dependent consolidation, liver appeared cirrhotic in morphology, cortical erosion along medial cortex of R proximal femur with ~6.5 cm pocket of adjacent fluid which is pathologically indeterminate and could potentially represent bursal fluid but sterility cannot be assessed by imaging, and an indeterminate 6 cm ovoid cystic structure in subcutaneous soft tissues along inferior R gluteal crease which is indeterminate and could potentially represent pilonidal cyst. Pulm was consulted--felt his pleural effusions were chronic and small, did not feel pt needed a thoracentesis. Recommended diuretics and treating for CAP. Surgery was consulted regarding concern for pilonidal cyst. They felt the appearance on CT did not look like abscess, and on exam there were no signs of infection. They feel this may be an uninfected fluid collection like small coccygeal cyst, without need for acute surgical intervention. Could consider aspiration, although there is concern that this could risk introducing infection to the collection. Discussion: Bacteroides fragilis is not a typical finding in pneumonia. It is typically GI bi, but pt denies abd pain, diarrhea. Due to unclear source of MSSA and Bacteroides fragilis bacteremia, pt underwent further work-up with MRI L foot 12/11 which showed no osteomyelitis, [place] 12/12 without vegetations. US guided aspiration of R hip fluid collection 12/11 which showed purulent fluid. R hip fluid culture gram stain with many GPCs, culture pending--this is likely the source of pt's bacteremia (although Bacteroides bacteremia remains unusual). Recommendations: - The R hip fluid collection is likely the source of pt's bacteremia--uncertain if R hip prosthetic joint is involved, and concern for associated osteomyelitis given cortical erosion seen on CT 12/09. Will discuss further with orthopedics. May benefit from further imaging such as MRI and washout in the OR? - Continue cefazolin 2 g IV q8h to cover MSSA - Continue metronidazole 500 mg IV q8h to cover Bacteroides fragilis Will continue to follow. Admission and Anticipated Discharge Date Admission Date: December 05, 2024 Subjective Subsequent visit was provided via telemedicine using two-way real-time interactive telecommunication between the patient and the telemedicine provider. For the duration of the visit, the provider was performing the assessment from a different facility than the patient. This includesuse of bluetooth stethoscope forauscultationperformed by the telepresenter that the telemedicine provider can hear if described in the physical exam. Animal Impersonator contact information: Please call [facility] . (Phone Number For Physician Use Only) After establishing a telemedicine visit, patient was: Patient was verified with two unique identifiers, Patient/authorized rep acknowledged consent and understanding and Gave permission to continue telehealth session Time Spent with Patient: Subsequent => 25 min Uptrending leukocytosis 14.72 --> 18.33 Underwent aspiration of R hip fluid collection yesterday, with aspiration of ~20 ml purulent fluid, culture pending L foot MRI yesterday with no signs of osteomyelitis Pt denies complaints Review of System A complete ROS was performed and is negative except as mentioned in the HPI. Physical Exam Physical Exam: GEN: Well-appearing, in NAD. RESP: No increased work of breathing NEURO: Alert and oriented. Answers all questions appropriately. Speech not slurred. PSYCH: Normal mood, affect appropriate. Results & Data Vital Signs (Past 12 Hours) Vital Signs Temp Pulse Pulse Resp BP BP Pulse Ox 12/12/24 09:37 118 H 127/79 12/12/24 08:27 111 H 16 94/61 L 92 12/12/24 08:04 111 H 18 104/54 L 92 12/12/24 07:49 127 H 18 98/58 L 94 12/12/24 07:15 117 H 18 117/73 94 12/12/24 04:00 36.7 C 101 H 16 109/72 96 12/11/24 22:33 36.7 C 99 H 23 124/77 97 O2 Del Method O2 Flow Rate 12/12/24 09:37 12/12/24 08:27 Nasal Cannula 2 12/12/24 08:04 Room Air 12/12/24 07:49 Room Air 12/12/24 07:15 Oxymask 12/12/24 04:00 BiPAP 12/11/24 22:33 BiPAP Laboratory Results Short CBC 12/12/24 Range/Units 06:02 WBC 18.33 H (4.8-10.8) K/ul Hgb 10.5 L (14.0-18.0) g/dl Hct 30.2 L (42.0-52.0) % Plt Count 295 (130-400) K/uL BMP 12/11/24 12/12/24 20:42 06:02 Sodium 136 137 Potassium 3.6 3.7 Chloride 98 100 Carbon Dioxide 32 30 BUN 49 H 45 H Creatinine 1.63 H D 1.46 H Glucose 161 H 150 H Calcium 9.2 9.2 (2) Pneumonia Laterality: unspecified laterality Lung location: unspecified part of lung Pneumonia type: due to unspecified organism Qualified Code(s): J18.9 - Pn eumonia, unspecified organism
--- NOTE | 2024-12-12 11:06 | Hospitalist Progress Note ---
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 Also has had right sided hip pain for several months followed by [facility]. #Staph aureus (MSSA) bacteremia + bacteroides fragilis - -source - right hip (septic bursitis vs septic hip?) -s/p IR drainage of right hip fluid yesterday - culture with staph aureus, likely to be MSSA -repeat blood cx's x 4 sets negative -STERLING w/o valvular vegetations -appreciate cardiology & ID consultations -previously on cefepime (+ a few days of vancomycin) -then transitioned to IV cefazolin 12/09 -added metronidazole IV for bacteroides coverage 12/08 -discussed his care with Dr Beltran from orthopedics -at this time, due to medical complexity and other factors, no plans for I/D or explantation of right hip hardware unless there is clinical worsening or failure to improve #right hip periprosthetic fracture and right hip infection - -s/p IR drainage of fluid collection yesterday -gram stain + for GPC and cell counts with copious WBCs; culture growing staph -for periprosthetic fracture - no specific Rx needed -for right hip infection - see discussion above -will need lengthy course of IV antibiotic therapy followed by PO abx -appreciate ID consultation & recs #Toe ulcers - -Wound care consult appreciated -cont local wound care #Acute respiratory failure with hypoxia - -2nd to acute HFpEF and b/l lower lobe pneumonia -diuresis given for much of the stay; diuretics now on hold with rise in creatinine -s/p course of IV antibiotic treatment for his pneumonia (7+ days more than adequate) -cxr repeated today - improved infiltrates, improved effusions -cont to wean NC O2 as tolerated #BPH with urinary retention- -needed Watson early in the stay -removed 12/10 -by report there has been concern that duloxetine has been contributing to void ing issues and is on a tapering schedule -continue duloxetine tapering - now on q48h dosing -continue tamsulosin (new this admit) -tolerating such #Chronic atrial fibrillation/hypertension- -HOLD Xarelto in case he needs intervention of the R hip -cont metoprolol titrate and diltiazem -rates uncontrolled - may need additional CCB titration -Hold lisinopril due to CHLOE #COPD - -no exacerbation at this time -Duonebs PRN -Continue Trelegy #Type 2 Diabetes mellitus- -Hold metformin -Continue Jardiance -HbA1C 6.7 -Appreciate pharmacy glycemic consult -novolog SSI #Hyperlipidemia - -Continue atorvastatin #Neuropathy - -Is presently on tapering schedule of duloxetine due to concerns regarding exacerbation of urinary retention from such #Chronic gout - -Continue allopurinol -no flare at this time #AISHA - -cont BIPAP, #CHLOE - -2nd to over-diuresis -HOLD NADIRA -HOLD diuretics -BMP am VTE Prophylaxis - Xarelto, but holding in case he needs intervention of R hip infection cont PT/OT progressing Admission and Anticipated Discharge Date Admission Date: December 05, 2024 Subjective tele - a.fib, rates >100 frequently particularly with activity reports dyspnea much improved in comparison to admission minimal cough right hip pain improved s/p drainage procedure yesterday by IR eating very well - "eating everything" denies diarrhea Review of Systems Review of Systems: gen - no fevers or chills cv - no chest pain, no edema of LEs pulm - no dyspnea at rest GI - no abd pain Physical Exam Physical Exam: gen - pleasant male in NAD, lying in bed neck - no JVD mouth - MMM heart - irregularly irregular, s1 s2, tachy, no murmur lungs - decreased BS bases, no rales, no wheeze abd- soft NT ND BS+ musculo - band-aid right groin from IR aspiration clean, no hematoma ext - no edema, pulses b/l feet 2+ psych - a/o x 3 Results & Data Results & Data Vital Signs (Past 12 Hours) Vital Signs Temp Pulse Pulse Resp BP BP Pulse Ox 12/12/24 11:03 36.5 C 102 H 20 119/72 96 12/12/24 09:37 118 H 127/79 12/12/24 08:27 111 H 16 94/61 L 92 12/12/24 08:04 111 H 18 104/54 L 92 12/12/24 07:49 127 H 18 98/58 L 94 12/12/24 07:15 117 H 18 117/73 94 12/12/24 04:00 36.7 C 101 H 16 109/72 96 O2 Del Method O2 Flow Rate 12/12/24 11:03 Nasal Cannula 3 12/12/24 09:37 12/12/24 08:27 Nasal Cannula 2 12/12/24 08:04 Room Air 12/12/24 07:49 Room Air 12/12/24 07:15 Oxymask 12/12/24 04:00 BiPAP Laboratory Results Laboratory Results - last 24 hr 12/11/24 12/11/24 12/11/24 12:25 15:06 16:04 WBC RBC Hgb Hct MCV MCH MCHC RDW Std Deviation RDW Coeff of Marce Plt Count MPV Absolute Nucleated RBC Nucleated RBC % (auto) Sodium Potassium Chloride Carbon Dioxide Anion Gap BUN Creatinine Est Cr Clr Drug Dosing eGFR BUN/Creatinine Ratio Glucose POC Glucose 164 H 195 H Calcium Fluid Comment Synovial Source Right Hip Synovial Color Brown Synovial Appearance Turbid Synovial WBC 825684 H Synovial RBC (Auto) 80735 Synov Polynuclear WBCs 95 Synov Mononuclear WBCs 5 12/11/24 12/11/24 12/12/24 20:41 20:42 06:02 WBC 18.33 H RBC 3.28 L Hgb 10.5 L Hct 30.2 L MCV 92.1 MCH 32.0 MCHC 34.8 RDW Std Deviation 60.7 H RDW Coeff of Marce 18.1 H Plt Count 295 MPV 10.7 Absolute Nucleated RBC 0.02 Nucleated RBC % (auto) 0.1 Sodium 136 137 Potassium 3.6 3.7 Chloride 98 100 Carbon Dioxide 32 30 Anion Gap 6 7 BUN 49 H 45 H Creatinine 1.63 H D 1.46 H Est Cr Clr Drug Dosing 54.7 61.3 eGFR 44.77 51.10 BUN/Creatinine Ratio 30.1 H 30.8 H Glucose 161 H 150 H POC Glucose 151 H Calcium 9.2 9.2 Fluid Comment Synovial Source Synovial Color Synovial Appearance Synovial WBC Synovial RBC (Auto) Synov Polynuclear WBCs Synov Mononuclear WBCs 12/12/24 12/12/24 06:14 08:53 WBC RBC Hgb Hct MCV MCH MCHC RDW Std Deviation RDW Coeff of Marce Plt Count MPV Absolute Nucleated RBC Nucleated RBC % (auto) Sodium Potassium Chloride Carbon Dioxide Anion Gap BUN Creatinine Est Cr Clr Drug Dosing eGFR BUN/Creatinine Ratio Glucose POC Glucose 156 H 157 H Calcium Fluid Comment Synovial Source Synovial Color Synovial Appearance Synovial WBC Synovial RBC (Auto) Synov Polynuclear WBCs Synov Mononuclear WBCs Diagnostic Findings Microbiology 12/05/24 19:17 Blood Aerobic Blood Culture - Final No growth in Aerobic bottle after 5 days. 12/05/24 19:17 Blood Anaerobic Blood Culture - Final Staphylococcus aureus Bacteroides fragilis 12/11/24 15:06 Hip,Right Gram Stain - Final 12/11/24 15:06 Hip,Right Aerobic and Anaerobic Culture - Preliminary Staphylococcus aureus 12/07/24 05:34 Blood Aerobic Blood Culture - Final No growth in Aerobic bottle after 5 days. 12/07/24 05:34 Blood Anaerobic Blood Culture - Final No growth in Anaerobic bottle after 5 days. 12/07/24 05:28 Blood Aerobic Blood Culture - Final No growth in Aerobic bottle after 5 days. 12/07/24 05:28 Blood Anaerobic Blood Culture - Final No growth in Anaerobic bottle after 5 days. 12/09/24 09:18 Blood Aerobic Blood Culture - Preliminary No growth in Aerobic bottle after 48 hours. 12/09/24 09:18 Blood Anaerobic Blood Culture - Preliminary No growth in Anaerobic bottle after 48 hours. 12/09/24 09:06 Blood Aerobic Blood Culture - Preliminary No growth in Aerobic bottle after 48 hours. 12/09/24 09:06 Blood Anaerobic Blood Culture - Preliminary No growth in Anaerobic bottle after 48 hours. 12/05/24 19:26 Blood Aerobic Blood Culture - Final Staphylococcus aureus 12/05/24 19:26 Blood Anaerobic Blood Culture - Final Staphylococcus aureus 12/05/24 21:30 Urine,Indwelling Cath Urine Culture - Final No growth - less than 1,000 colonies/mL. 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
--- NOTE | 2024-12-12 12:17 | Orthopedic Progress Note ---
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 Given length of time since initial surgery, hardware removal may be prohibitively difficult. No formal OR washout planned at this time. * In the interim, would medically optimize patient for possible OR intervention * Patient updated to current plan of care * Weight bearing status: Activity as tolerated * Pain control * DVT prophylaxis per primary team * Disposition: TBD * Will continue to follow * Agree with all of above. Talked with patient this evening. Feeling much better after aspiration. Considering all, current plant is to tx with IV abx followed by PO antibiotics for life likely. If pain returns, will likely reimage and if fluid returns, then formal I & D. He will need this abx regimine regardless. (2) Staphylococcus aureus bacteremia: Subjective Active Problems: Bacteremia, R hip fluid collection, h/o JAMES 69 y/o male with bacteremia and right hip fluid collection consistent with PJI. Now s/p IR aspiration yielding purulent fluid, WBC >360k, gram stain (+), culture pending. Patient reports improved pain of hip and thigh following procedure. Review of Systems All systems reviewed & are unremarkable except as noted in HPI & below. Physical Exam * General: Alert and oriented, no acute distress * Constitutional: well-developed, well-nourished. * Respiratory: Normal respiratory effort, no distress * Gastrointestinal: No tenderness to palpation, no rigidity or guarding. * Skin: No rash or lesion. * Neurologic: Grossly normal * Musculoskeletal: Well healed surgical incision with no overlying erythema, skin breakdown, or wound drainage from surgical site. Otherwise no obvious deformity or overlying skin changes to the RLE. Mild diffuse TTP proximal thigh and hip region. Otherwise no specific tenderness of distal thigh, lower leg, foot/ankle. ROM hip flexion and IR/ER with minimal pain. AROM foot/ankle intact. Sensation intact plantar/dorsal foot. Brisk capillary refill. Results & Data Results & Data Laboratory Results . 12/07/24 05:34 Aerobic Blood Culture - Final Blood No growth in Aerobic bottle after 5 days. Anaerobic Blood Culture - Final No growth in Anaerobic bottle after 5 days. 12/07/24 05:28 Aerobic Blood Culture - Final Blood No growth in Aerobic bottle after 5 days. Anaerobic Blood Culture - Final No growth in Anaerobic bottle after 5 days. 12/11/24 15:06 Gram Stain - Final Hip,Right Aerobic and Anaerobic Culture - Pending 12/09/24 09:18 Aerobic Blood Culture - Preliminary Blood No growth in Aerobic bottle after 48 hours. Anaerobic Blood Culture - Preliminary No growth in Anaerobic bottle after 48 hours. 12/09/24 09:06 Aerobic Blood Culture - Preliminary Blood No growth in Aerobic bottle after 48 hours. Anaerobic Blood Culture - Preliminary No growth in Anaerobic bottle after 48 hours. 12/12/24 12/12/24 12/12/24 11:27 08:53 06:14 WBC RBC Hgb Hct MCV MCH MCHC RDW Std Deviation RDW Coeff of Marce Plt Count MPV Absolute Nucleated RBC Nucleated RBC % (auto) Sodium Potassium Chloride Carbon Dioxide Anion Gap BUN Creatinine Est Cr Clr Drug Dosing eGFR BUN/Creatinine Ratio Glucose POC Glucose 210 H 157 H 156 H Calcium Fluid Comment Synovial Source Synovial Color Synovial Appearance Synovial WBC Synovial RBC (Auto) Synov Polynuclear WBCs Synov Mononuclear WBCs 12/12/24 12/11/24 12/11/24 06:02 20:42 20:41 WBC 18.33 H RBC 3.28 L Hgb 10.5 L Hct 30.2 L MCV 92.1 MCH 32.0 MCHC 34.8 RDW Std Deviation 60.7 H RDW Coeff of Marce 18.1 H Plt Count 295 MPV 10.7 Absolute Nucleated RBC 0.02 Nucleated RBC % (auto) 0.1 Sodium 137 136 Potassium 3.7 3.6 Chloride 100 98 Carbon Dioxide 30 32 Anion Gap 7 6 BUN 45 H 49 H Creatinine 1.46 H 1.63 H D Est Cr Clr Drug Dosing 61.3 54.7 eGFR 51.10 44.77 BUN/Creatinine Ratio 30.8 H 30.1 H Glucose 150 H 161 H POC Glucose 151 H Calcium 9.2 9.2 Fluid Comment Synovial Source Synovial Color Synovial Appearance Synovial WBC Synovial RBC (Auto) Synov Polynuclear WBCs Synov Mononuclear WBCs 12/11/24 12/11/24 12/11/24 16:04 15:06 12:25 WBC RBC Hgb Hct MCV MCH MCHC RDW Std Deviation RDW Coeff of Marce Plt Count MPV Absolute Nucleated RBC Nucleated RBC % (auto) Sodium Potassium Chloride Carbon Dioxide Anion Gap BUN Creatinine Est Cr Clr Drug Dosing eGFR BUN/Creatinine Ratio Glucose POC Glucose 195 H 164 H Calcium Fluid Comment Synovial Source Right Hip Synovial Color Brown Synovial Appearance Turbid Synovial WBC 451516 H Synovial RBC (Auto) 54274 Synov Polynuclear WBCs 95 Synov Mononuclear WBCs 5 Diagnostic Findings . 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
--- NOTE | 2024-12-12 12:55 | XRay Report ---
XR chest 2V PA/lateral CLINICAL HISTORY: recent b/l pneumonia, CHF; hypoxia COMPARISON STUDY: 12/08/2024 FINDINGS: The patient remains hyperinflated. The heart is at the upper limits of normal in size. Ther e are small bilateral pleural effusions. There are left basilar airspace opacities, atelectatic versu s inflammatory. There are linear atelectatic changes at the right lung base. There is resolving pulmo nary vascular congestion. Degenerative changes are present within the spine with calcification of the anterior longitudinal ligament. IMPRESSION: 1. Resolving pulmonary vascular congestion 2. Persistent small bilateral pleural effusions 3. Left basilar airspace opacities, atelectatic versus infectious/inflammatory ACT 112: Negative or not required by law. Electronically signed by: Jovanni Marsh M.D. 12/12/2024 12:54 PM
--- NOTE | 2024-12-12 13:57 | Pharmacy Report ---
Pharmacy Glycemic Short Note 2 - Date of Service December 12, 2024 - Glycemic Short BSG Results (Last 24 hours): 12/11/24 12/11/24 12/11/24 16:04 20:41 20:42 Glucose 161 H POC Glucose 195 H 151 H 12/12/24 12/12/24 12/12/24 06:02 06:14 08:53 Glucose 150 H POC Glucose 156 H 157 H 12/12/24 11:27 Glucose POC Glucose 210 H OUTPATIENT ANTIDIABETIC REGIMEN: * Empagliflozin 10 mg PO AM * Metformin 500 mg PO BID * HbA1c 6.7% on 12/06/24 ASSESSMENT: 12/12: * Patient previously NPO for a little while yesterday and today for planned STERLING * Patient went for STERLING this AM - now back to T2DM diet * Receiving 6-13 total units of insulin per day over past few days * Glucose ranges from 110s-190s, only a couple values over goal range but overall controlled * Continue current regimen of empagliflozin 10mg daily and insulin aspart (CF 30, CR 15) * Stressors: MSSA/bacteroides bacteremia 12/09: * Patient received total of 27 units of insulin yesterday, of which 8 units were basal insulin * No further steroids ordered. Fasting BSG 101 mg/dL - will hold basal insulin as blood sugars trending down yesterday * Plan to loosen CR more today 12/07: * Madhu received 41 units of insulin yesterday, 15 of which were basal. BSGs were: 181-438-220-198 mg/dL. * Fasting BSG this AM is improved but slightly above goal at 150 mg/dL. Given patient remains on steroids in the form of SoluMedrol 40 mg IV AM, will plan to increase basal by 20% today. * Some postprandial hyperglycemia yesterday. Will tighten Novolog to reflect weight/stress of 3. Opting for tighter glycemic control with BSG goal of 110- 140 mg/dL given bacteremia. * Remains on Jardiance 10 mg PO daily. Continue holding metformin. Abx include Vancomycin, Cefepime and PO Azithromycin. 12/06: * 69 yo M with well-controlled T2DM per above HbA1c on two oral agents admitted yesterday evening with CHF exacerbation, possible HAP, and now GPC bacteremia * Hyperglycemia likely 2nd stressors above, plus two doses of methylprednisolone received 12/05 PM and 10/16 AM. No ongoing steroids ordered. * Will tighten CHO ratio 2nd steroids * Will initiate low-dose Lantus again 2nd steroids, although this may or may not be needed ongoing now that steroids have not been continued PLAN FOR INPATIENT GLYCEMIC CONTROL: * Hold outpatient metformin, but continue empagliflozin (due to dual diagnosis of heart failure) * Basal insulin * Lantus - hold * Bolus insulin * NovoLog per scale ACHS or Q6hrs while NPO * Goal Range: Low 110 mg/dL - High 140 mg/dL * Correction Factor: 30 mg/dL/unit * Nutritional / Prandial insulin per carb ratio of 1 unit per 15 grams CHO consumed
--- NOTE | 2024-12-12 23:22 | XCELERA ---
[id number]
[2024-12-13 05:07] LABS: Hematocrit (blood only) 29.4 % (42.0-52.0); Hemoglobin 9.5 g/dl (14.0-18.0); Mean Corpuscular Hemoglobin 30.2 pg (25.0-34.0); Mean Corpuscular Volume 93.3 fL (80.0-100.0); Platelet Count 321 K/uL (130-400); RDW Standard Deviation 62.1 fL (36.4-46.3); Red Blood Count 3.15 M/uL (4.70-6.10); White Blood Count 17.53 K/ul (4.8-10.8)
[2024-12-13 05:20] LABS: Anion Gap 8.0 (3-11); Blood Urea Nitrogen 34.0 mg/dl (6-23); Calcium 9.0 mg/dl (8.6-10.3); Carbon Dioxide 27.0 mmol/L (21-32); Chloride 100.0 mmol/L (98-107); Creatinine Clr Calc Pharmacy 79.9 ml/min; Glucose 126.0 mg/dl (70-99(Fasting)); Potassium 3.6 mmol/L (3.5-5.1); Sodium 135.0 mmol/L (136-145)
--- NOTE | 2024-12-13 08:34 | Orthopedic Progress Note ---
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 Given length of time since initial surgery, hardware removal may be prohibitively difficult. No formal OR washout planned at this time. * In the interim, would medically optimize patient for possible OR intervention * Patient updated to current plan of care * Weight bearing status: Activity as tolerated * Pain control * DVT prophylaxis per primary team * Disposition: TBD * Will continue to follow Subjective Active Problems: Bacteremia, R hip fluid collection, h/o JAMES 69 y/o male with bacteremia and right hip fluid collection consistent with PJI. Now s/p IR aspiration yielding purulent fluid, WBC >360k, gram stain (+), culture pending. Patient reports improved pain of hip and thigh following procedure. Per discussion with Dr Beltran, plan is for close monitoring on abx suppression. Review of Systems All systems reviewed & are unremarkable except as noted in HPI & below. Physical Exam * Musculoskeletal: Well healed surgical incision with no overlying erythema, skin breakdown, or wound drainage from surgical site. Otherwise no obvious deformity or overlying skin changes to the RLE. Mild diffuse TTP proximal thigh and hip region. Otherwise no specific tenderness of distal thigh, lower leg, foot/ankle. ROM hip flexion and IR/ER with minimal pain. AROM foot/ankle intact. Sensation intact plantar/dorsal foot. Brisk capillary refill. Results & Data Results & Data Laboratory Results . 12/05/24 19:17 Aerobic Blood Culture - Final Blood No growth in Aerobic bottle after 5 days. Anaerobic Blood Culture - Final Staphylococcus aureus Bacteroides fragilis 12/11/24 15:06 Gram Stain - Final Hip,Right Aerobic and Anaerobic Culture - Preliminary Staphylococcus aureus 12/07/24 05:34 Aerobic Blood Culture - Final Blood No growth in Aerobic bottle after 5 days. Anaerobic Blood Culture - Final No growth in Anaerobic bottle after 5 days. 12/07/24 05:28 Aerobic Blood Culture - Final Blood No growth in Aerobic bottle after 5 days. Anaerobic Blood Culture - Final No growth in Anaerobic bottle after 5 days. 1012/13/24 12/12/24 07:29 04:45 20:11 WBC 17.53 H RBC 3.15 L Hgb 9.5 L Hct 29.4 L MCV 93.3 MCH 30.2 MCHC 32.3 RDW Std Deviation 62.1 H RDW Coeff of Marce 18.2 H Plt Count 321 MPV 10.7 Absolute Nucleated RBC 0.04 Nucleated RBC % (auto) 0.2 Sodium 135 L Potassium 3.6 Chloride 100 Carbon Dioxide 27 Anion Gap 8 BUN 34 H Creatinine 1.12 D Est Cr Clr Drug Dosing 79.9 eGFR 70.23 BUN/Creatinine Ratio 30.4 H Glucose 126 H POC Glucose 129 H 134 H Calcium 9.0 12/12/24 12/12/24 12/12/24 16:06 11:27 08:53 WBC RBC Hgb Hct MCV MCH MCHC RDW Std Deviation RDW Coeff of Marce Plt Count MPV Absolute Nucleated RBC Nucleated RBC % (auto) Sodium Potassium Chloride Carbon Dioxide Anion Gap BUN Creatinine Est Cr Clr Drug Dosing eGFR BUN/Creatinine Ratio Glucose POC Glucose 136 H 210 H 157 H Calcium Diagnostic Findings . 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
--- NOTE | 2024-12-13 09:45 | Infectious Disease Progress Nt ---
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: Plan Problems: #MSSA bacteremia #Bacteroides fragilis bacteremia #R hip PJI and abscess #AHRF #Pneumonia #R proximal femur purulent fluid collection: noted on CT 12/09, s/p aspiration 12/11, cx grew MSSA #Pilonidal cyst #DM2 #Diabetic foot ulcers: L first toe (MRI L foot without osteomyelitis), R second toe #R JAMES #R TKA Micro: 12/11 R hip aspirate cx: MSSA (S tetra, TMP/SMX) 12/09 BCx x2: NGTD 12/07 BCx x2: NG 12/05 UCx: NG 12/05 BCx x2: MSSA in 3/4 bottles, Bacteroides fragilis in 1/4 bottles Abx: Cefazolin 12/09 - present Metronidazole 12/08 - present Cefepime 12/05 - 12/09 Vanc 12/06 - 12/07 Azithro 12/05 - 12/07 69 yo M with history of afib, PMR, peripheral neuropathy, pulmonary hypertension, AISHA on nightly BiPAP, HFpEF, DM2, HTN, COPD, gout, hypercholesterolemia, R JAMES, R TKA who presented on 12/05 with complaint of worsening shortness of breath x 4 days, fever, with MSSA and Bacteroides fragilis bacteremia, found to have R hip PJI. On presentation, pt was afebrile with O2 sat in mid 80s, improved on Oxymask 4 L. Labs showed WBC 16.3, Cr 1.64, lactate 2, procal 2.22. UA with >50 WBCs. CXR with L>R basilar densities, may represent atelectasis or mild pneumonia; congestive changes of the cardiovascular system. Pt's respiratory status worsened in the ED with O2 sat remaining in upper 70s to low 80s despite oxymask 12 L, placed on BiPAP. Was started on furosemide, cefepime, azithromycin, Solumedrol. Vanc added 12/06. Admission blood cultures grew MSSA in 3/4 bottles, and Bacteroides fragilis in 1/4 bottles. TTE without vegetations. Repeat blood cultures from 12/07 are NG, prior to adding metronidazole 12/08 to cover B frag. Cefepime narrowed to cefazolin on 12/09. Noted to have L first toe and R second toe ulcers, with XRs showing no acute bony abnormalities. Repeat CXR on 12/08 showed cardiomegaly and emphysema with evidence of CHF; layering pleural effusions with dependent consolidation. Pt reported more pain around his R JAMES and TKA for the last few months. R hip XR showed a subacute/healing fracture through the greater trochanter of the R proximal femur. R knee XR showed soft tissue swelling and small joint effusion. Ortho was consulted for further evaluation--had low suspicion for periprosthetic joint infections. CT A/P with IV contrast was performed 12/09 to further work-up the Bacteroides bacteremia--noted bladder wall was thickened with surrounding inflammation, R>L pleural effusions with dependent consolidation, liver appeared cirrhotic in morphology, cortical erosion along medial cortex of R proximal femur with ~6.5 cm pocket of adjacent fluid which is pathologically indeterminate and could potentially represent bursal fluid but sterility cannot be assessed by imaging, and an indeterminate 6 cm ovoid cystic structure in subcutaneous soft tissues along inferior R gluteal crease which is indeterminate and could potentially represent pilonidal cyst. Pulm was consulted--felt his pleural effusions were chronic and small, did not feel pt needed a thoracentesis. Recommended diuretics and treating for CAP. Surgery was consulted regarding concern for pilonidal cyst. They felt the appearance on CT did not look like abscess, and on exam there were no signs of infection. They feel this may be an uninfected fluid collection like small coccygeal cyst, without need for acute surgical intervention. Could consider aspiration, although there is concern that this could risk introducing infection to the collection. Due to unclear source of MSSA and Bacteroides fragilis bacteremia, pt underwent further work-up with MRI L foot 12/11 which showed no osteomyelitis, STERLING 12/12 without vegetations. US guided aspiration of R hip fluid collection 12/11--removed ~20 ml of purulent fluid which grew MSSA. Discussion: Ortho discussed with radiology, who felt the fluid collection involved the hip joint. Will treat as R hip PJI, which is likely the source of pt's MSSA bacteremia. Per discussion with ortho, pt is a poor surgical candidate, with uncemented hip replacement well ingrown and present for 20 years, so removal of the hardware is not recommended unless clinically worsens with antibiotics. CT A/P 12/09 did comment on cortical erosion adjacent to the R hip abscess, which raises concern for osteomyelitis. Pt did have a bone scan on 11/01 which showed increased focal uptake at the R greater trochanter consistent with the fracture seen on prior XRs. The Bacteroides fragilis bacteremia remains unusual--it is typically GI bi, but pt denied abd pain, diarrhea. It did grow in only 1 of [address], and cleared from 12/07 blood culture prior to initiation of metronidazole. Think less likely to be involved in the R hip PJI. I am concerned that antibiotics alone will be insufficient to treat pt's MSSA R hip PJI, however given concerns about surgical risks, will try medical management. Recommendations: - Continue cefazolin 2 g IV q8h x 6 weeks. Will set day 1 as the date of abscess aspiration, from 12/11 - 01/21/25. - Check weekly CBC with diff, CMP while on cefazolin to monitor for toxicity. Results can be faxed to number below - Will need PICC line - Following completion of 6 weeks of IV antibiotics, can transition to cefadroxil 500 mg PO BID for lifelong oral suppression - Will hold off on adding adjunctive rifampin, which has been studied in cases of Staph aureus PJI managed with DAIR. This pt has not undergone a DAIR procedure, so the role of rifampin is unclear. In addition, with high bioburden in the prosthetic joint without washout, could develop resistance to rifampin if added. Pt also with DDI between rifampin and home med diltiazem. Will therefore defer rifampin at this time, but could consider adding it in the future if pt does end up undergoing a DAIR procedure if antibiotics alone fail. - Unclear etiology of Bacteroides fragilis bacteremia, but think less likely to be involved in the R hip PJI, and the R hip abscess aspirate is only growing MSSA. Will switch from IV to PO metronidazole 500 mg q12h through 12/14/24 to complete a total 7 day course of metronidazole - I will arrange for follow-up in telemedicine [facility] clinic - Antibiotic discharge summary below, which can be copied and pasted in the discharge summary for SNF reference Will sign off. Infectious Diseases OPAT Antibiotic Discharge Plan: Diagnosis: R hip PJI Organism: MSSA Antibiotic: cefazolin 2 g IV q8h Start of therapy: 12/11/24 End of therapy: 01/21/25 Oral suppression following above IV antibiotics: yes, cefadroxil 500 mg PO BID lifelong Labs should be faxed to:ID office attention Steph Gerardo [phone] Labs needed and frequency: weekly CBC with diff, CMP Please follow [facility] with [facility] Clinic Address [address] [place] [address] Office (P) [phone] Appointment-time frame: ~4-5 weeks Admission and Anticipated Discharge Date Admission Date: December 05, 2024 Subjective Subsequent visit was provided via telemedicine using two-way real-time interactive telecommunication between the patient and the telemedicine provider. For the duration of the visit, the provider was performing the assessment from a different facility than the patient. This includesuse of bluetooth stethoscope forauscultationperformed by the telepresenter that the telemedicine provider can hear if described in the physical exam. Guest Service Agent contact information: Please call [facility] . (Phone Number For Physician Use Only) After establishing a telemedicine visit, patient was: Patient was verified with two unique identifiers, Patient/authorized rep acknowledged consent and understanding and Gave permission to continue telehealth session Time Spent with Patient: Subsequent => 35 min WBC 17.53 R hip aspirate growing MSSA Review of System A complete ROS was performed and is negative except as mentioned in the HPI. Physical Exam Physical Exam: GEN: Well-appearing, in NAD. RESP: No increased work of breathing NEURO: Alert and oriented. Answers all questions appropriately. Speech not slurred. PSYCH: Normal mood, affect appropriate. Results & Data Vital Signs (Past 12 Hours) Vital Signs Temp Pulse Pulse Resp BP Pulse Ox O2 Del Method 12/13/24 07:37 Nasal Cannula 12/13/24 07:32 36.7 C 94 H 18 131/56 L 91 Nasal Cannula 12/13/24 07:26 84 12/13/24 02:34 37.0 C 97 H 18 107/73 97 CPAP 12/12/24 22:52 37.1 C 79 20 117/69 93 CPAP O2 Flow Rate 12/13/24 07:37 3 12/13/24 07:32 3 12/13/24 07:26 12/13/24 02:34 10/22/25 22:52 (2) Pneumonia Laterality: unspecified laterality Lung location: unspecified part of lung Pneumonia type: due to unspecified organism Qualified Code(s): J18.9 - Pneumonia, unspecified organism
--- NOTE | 2024-12-13 12:30 | Hospitalist Progress Note ---
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 Also has had right sided hip pain for several months [place] [facility] Ultimately confirmed to have MSSA bacteremia with source being his right hip orthosis. #Staph aureus (MSSA) bacteremia + bacteroides fragilis - -source - right hip -s/p IR drainage of right hip fluid - culture with staph aureus (MSSA) -repeat blood cx's x 4 sets negative -STERLING w/o valvular vegetations -appreciate cardiology & ID consultations -previously on cefepime (+ a few days of vancomycin) -then transitioned to IV cefazolin 12/09 -added metronidazole IV for bacteroides coverage 12/08 -discussed his care with Dr Beltran from orthopedics on 12/12 -at this time, due to medical complexity and other factors, no plans for I/D or explantation of right hip hardware unless there is clinical worsening or failure to improve -if any worsening or failure to improve then I/D / wash-out to be performed -PICC line consent obtained -will need 6 weeks of IV ancef followed by lifelong PO abx suppression -can stop metronidazole after tomorrow's doses #right hip periprosthetic fracture and right hip infection - -s/p IR drainage of fluid collection -culture with MSSA -for periprosthetic fracture - no specific Rx needed -for right hip infection - see discussion above -appreciate ID consultation & recs #Toe ulcers - -Wound care consult appreciated -cont local wound care #Acute respiratory failure with hypoxia - -2nd to acute HFpEF and b/l lower lobe pneumonia -diuresis given for much of the stay; diuretics placed on hold with recent rise in creatinine -s/p course of IV antibiotic treatment for his pneumonia (7+ days more than adequate) -cxr repeated 12/12 - improved infiltrates, improved effusions -cont to wean NC O2 as tolerated #BPH with urinary retention- -needed Watson early in the stay -removed 12/10 -by report there has been concern that duloxetine has been contributing to voiding issues and is on a tapering schedule -continue duloxetine tapering - now on q48h dosing -continue tamsulosin (new this admit) -tolerating such #Chronic atrial fibrillation/hypertension- -HOLD Xarelto 1 more day in case he needs intervention of the R hip; if no intervention needed then resume Xarelto -cont metoprolol titrate and diltiazem -rates uncontrolled - increased diltiazem to 240mg daily -cont to Hold lisinopril #COPD - -no exacerbation at this time -Duonebs PRN -Continue Trelegy #Type 2 Diabetes mellitus- -Hold metformin -Continue Jardiance -HbA1C 6.7 -Appreciate pharmacy glycemic consult -novolog SSI #Hyperlipidemia - -Continue atorvastatin #Neuropathy - -Is presently on tapering schedule of duloxetine due to concerns regarding exacerbation of urinary retention from such #Chronic gout - -Continue allopurinol -no flare at this time #AISHA - -cont BIPAP, #CHLOE - -2nd to over-diuresis -HOLD NADIRA -HOLD diuretics -BMP am once again VTE Prophylaxis - Xarelto, but holding in case he needs intervention of R hip i nfection (resume tomorrow if nothing needed) cont PT/OT dispo - rehab ([facility]) daughter updated at bedside today PICC consent obtained Admission and Anticipated Discharge Date Admission Date: December 05, 2024 Subjective tele overnight - a.fib, most rates at rest <100; with activity >100 sitting in chair during the visit daughter at bedside he denies any dyspnea appetite is good stools are soft but not liquid c/o right knee pain for several weeks right hip pain - no worse than prior discussed plan of care (PICC line placement, etc) PICC consent obtained during the visit Review of Systems Review of Systems: gen - no fevers or chills cv - no chest pain pulm - no cough GI - no abd pain Physical Exam 2 Physical Exam: gen - pleasant male in NAD, sitting in chair, looks good neck - no JVD mouth - MMM heart - irregularly irregular, s1 s2, rate <100, no murmur lungs - decreased BS bases, mild rales bases, no wheeze abd- soft NT ND BS+ musculo - right knee - scantly warm vs the left knee; minimal effusion R knee; not hot, no erythema; passive ROM - slightly tender only; TKR scar midline ext - no edema, pulses b/l feet 2+ psych - a/o x 3 Results & Data Results & Data Vital Signs (Past 12 Hours) Vital Signs Temp Pulse Pulse Resp BP Pulse Ox O2 Del Method 12/13/24 11:40 36.7 C 75 18 104/61 96 Nasal Cannula 12/13/24 07:37 Nasal Cannula 12/13/24 07:32 36.7 C 94 H 18 131/56 L 91 Nasal Cannula 12/13/24 07:26 84 12/13/24 02:34 37.0 C 97 H 18 107/73 97 CPAP O2 Flow Rate 12/13/24 11:40 3 12/13/24 07:37 3 12/13/24 07:32 3 12/13/24 07:26 12/13/24 02:34 Laboratory Results Laboratory Results - last 48 hr 12/12/24 12/12/24 12/12/24 08:53 11:27 16:06 WBC RBC Hgb Hct MCV MCH MCHC RDW Std Deviation RDW Coeff of Marce Plt Count MPV Absolute Nucleated RBC Nucleated RBC % (auto) Sodium Potassium Chloride Carbon Dioxide Anion Gap BUN Creatinine Est Cr Clr Drug Dosing eGFR BUN/Creatinine Ratio Glucose POC Glucose 157 H 210 H 136 H Calcium C-Reactive Protein 12/12/24 12/13/24 12/13/24 20:11 04:45 07:29 WBC 17.53 H RBC 3.15 L Hgb 9.5 L Hct 29.4 L MCV 93.3 MCH 30.2 MCHC 32.3 RDW Std Deviation 62.1 H RDW Coeff of Marce 18.2 H Plt Count 321 MPV 10.7 Absolute Nucleated RBC 0.04 Nucleated RBC % (auto) 0.2 Sodium 135 L Potassium 3.6 Chloride 100 Carbon Dioxide 27 Anion Gap 8 BUN 34 H Creatinine 1.12 D Est Cr Clr Drug Dosing 79.9 eGFR 70.23 BUN/Creatinine Ratio 30.4 H Glucose 126 H POC Glucose 134 H 129 H Calcium 9.0 C-Reactive Protein 12/13/24 12/13/24 12/13/24 11:33 16:19 20:47 WBC RBC Hgb Hct MCV MCH MCHC RDW Std Deviation RDW Coeff of Marce Plt Count MPV Absolute Nucleated RBC Nucleated RBC % (auto) Sodium Potassium Chloride Carbon Dioxide Anion Gap BUN Creatinine Est Cr Clr Drug Dosing eGFR BUN/Creatinine Ratio Glucose POC Glucose 145 H 164 H 149 H Calcium C-Reactive Protein PG Care Time/CCT Total # of Minutes Spent Total Time Spent with Patient: Total time spent is greater than 50% in coordination of care (as documented) at patient's floor/unit and/or counseling patient: Coding Level of Care Code 06506 SUB INP/OBS CARE 3/50MIN Diagnoses Staphylococcus aureus bacteremia R78.81; B95.61 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
--- NOTE | 2024-12-13 12:54 | Pharmacy Report ---
Pharmacy Glycemic Sign Off Nt - Date of Service December 13, 2024 - Assessment & Plan ASSESSMENT: * Pharmacy was consulted by Dr. Carvalho on 12/06/2024 for glycemic control and to write orders per [facility] inpatient glycemic control protocol. * Major changes made by pharmacy to antidiabetic regimen include: * Holding home metformin at the moment, continue empagliflozin for dual HF/T2DM therapy * Initially on Lantus due to steroid use and now just on mealtime Novolog * Patient has been receiving/requiring 6-13 units of insulin per day for adequate glycemic control * BSGs ranging 101 - 210 mg/dl - only two values in past 48 hours slightly above goal range; all other glucose checks have been <180 mg/dL * Regimen has only required minor adjustments over the past 48hrs to achieve this level of control * Do not anticipate further changes in patient status that would quickly deter iorate glycemic control (i.e. patient to be NPO for upcoming procedure, steroids tapering, starting tube feedings, etc). * Per ortho note 12/12/24 - seems like we will be using conservative management with prolonged course of antibiotics for now * No formal OR planned at this time for hip washout * Patient was NPO for STERLING yesterday, but now back to T2DM diet - no changes to regimen during the NPO was necessary PLAN FOR INPATIENT GLYCEMIC CONTROL: No changes needed to current regimen. * Continue holding metformin while inpatient * Continue empagliflozin 10mg daily * Continue NovoLog per scale ACHS/Q6hrs while NPO * Goal range = 110 - 140 mg/dl * CF = 30 mg/dl/unit * CR = 1 unit for ever 15 g CHO consumed * Pharmacy is signing off of glycemic consult and will no longer be making adjustments to inpatient regimen. Please feel free to re-consult if needed. Thank you.
[2024-12-13] MEDS: DICLOFENAC SOD 1% GEL 100 GM TUBE EXT SCH (13:46)
--- NOTE | 2024-12-13 18:16 | XRay Report ---
Clinical History: PICC line placement Technique: 2 frontal views of the chest were obtained Comparison is made to the prior examination dated 12/08/2024 Findings: There is mild patchy opacity in the left lung base that may be due to atelectasis. The heart size is within normal limits. No pleural effusion or pneumothorax is seen. There is an unchanged admitted calcified granuloma in the left upper lobe. There is suspected mild pulmonary vascular congestion. No fracture is noted. There is a new right arm PICC line with its tip in the SVC Impression: 1. New right arm PICC line with its tip in the SVC 2. Unchanged left upper lobe nodule, likely a benign calcified granuloma 3. Mild left lung base atelectasis and pulmonary vascular congestion Electronically signed by Sony Armenta 12-13-2024 6:16 PM
[2024-12-13] MEDS: metroNIDAZOLE 500 MG TAB PO SCH (19:35)
[2024-12-14 07:29] LABS: Anion Gap 8.0 (3-11); Blood Urea Nitrogen 39.0 mg/dl (6-23); Calcium 9.5 mg/dl (8.6-10.3); Carbon Dioxide 29.0 mmol/L (21-32); Chloride 98.0 mmol/L (98-107); Creatinine Clr Calc Pharmacy 61.0 ml/min; Glucose 137.0 mg/dl (70-99(Fasting)); Potassium 4.1 mmol/L (3.5-5.1); Sodium 135.0 mmol/L (136-145)
--- NOTE | 2024-12-14 08:25 | Orthopedic Progress Note ---
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 Will continue to monitor. * At this time would continue antibiotic therapy per ID recommendations * Per discussion with Dr Beltran, patient is a poor surgical candidate and will require prolonged antibiotic therapy regardless of surgery, would trial non-op care unless patient were to become septic. Given length of time since initial surgery, hardware removal may be prohibitively difficult. No formal OR washout planned at this time. * In the interim, would medically optimize patient for possible OR intervention * Patient updated to current plan of care * Weight bearing status: Activity as tolerated * Pain control * DVT prophylaxis per primary team * Disposition: TBD * Will continue to follow Subjective Active Problems: Bacteremia, R hip fluid collection, h/o JAMES 69 y/o male with bacteremia and right hip fluid collection consistent with PJI. Now s/p IR aspiration yielding purulent fluid, WBC >360k, gram stain (+), culture preliminary staph aureus. Patient reports improved pain of hip and thigh following procedure. Also with chronic R knee pain, no effusion. Per discussion with Dr Beltran, plan is for close monitoring on abx suppression. No changes from exam yesterday. Review of Systems All systems reviewed & are unremarkable except as noted in HPI & below. Physical Exam * Musculoskeletal: Well healed surgical incision with no overlying erythema, skin breakdown, or wound drainage from surgical site. Otherwise no obvious deformity or overlying skin changes to the RLE. Mild diffuse TTP proximal thigh and hip region. Otherwise no specific tenderness of distal thigh, lower leg, foot/ankle. ROM hip flexion and IR/ER with minimal pain. AROM foot/ankle intact. Sensation intact plantar/dorsal foot. Brisk capillary refill. Results & Data Results & Data Laboratory Results . Diagnostic Findings . 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
[2024-12-14 08:48] LABS: Hematocrit (blood only) 30.9 % (42.0-52.0); Hemoglobin 10.0 g/dl (14.0-18.0); Immature Granulocytes # (auto) 0.26 K/uL (0.01-0.20); Immature Granulocytes % (auto) 1.7 %; Mean Corpuscular Hemoglobin 30.3 pg (25.0-34.0); Mean Corpuscular Volume 93.6 fL (80.0-100.0); Platelet Count 326 K/uL (130-400); RDW Standard Deviation 62.6 fL (36.4-46.3); Red Blood Count 3.30 M/uL (4.70-6.10); White Blood Count 14.86 K/ul (4.8-10.8)
--- NOTE | 2024-12-14 13:45 | Hospitalist Progress Note ---
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 Also has had right sided hip pain for several months followed by [facility] Ortho. Ultimately confirmed to have MSSA bacteremia with source being his right hip orthosis. #Staph aureus (MSSA) bacteremia + bacteroides fragilis - -source - right hip -s/p IR drainage of right hip fluid - culture with staph aureus (MSSA); no other pathogens isolated -repeat blood cx's x 4 sets negative ensuring test of cure -STERL[place] w/o valvular vegetations -appreciate cardiology & ID consultations -previously on cefepime (+ a few days of vancomycin) -then transitioned to IV cefazolin 12/09 -added metronidazole IV for bacteroides coverage 12/08 -has completed 7 days of IV/PO metro -discussed his care with Dr Beltran from orthopedics on 12/12 -at this time, due to medical complexity and other factors, no plans for I/D or explantation of right hip hardware unless there is clinical worsening or failure to improve -if any worsening or failure to improve then I/D / wash-out to be performed -PICC line placed RUE recs from ID: -Continue cefazolin 2 g IV q8h x 6 weeks (day #1 - date of abscess aspiration; thus, from 12/11 - 01/21/25) -weekly CBC with diff, CMP while on cefazolin -Following completion of 6 weeks of IV antibiotics, can transition to cefadroxil 500 mg PO BID for lifelong oral suppression #right hip periprosthetic fracture and right hip infection - -s/p IR drainage of fluid collection -culture with MSSA -for periprosthetic fracture - no specific Rx needed -for right hip infection - see discussion above -appreciate ID consultation & recs #Toe ulcers - -Wound care consult appreciated -cont local wound care #Acute respiratory failure with hypoxia - -2nd to acute HFpEF and b/l lower lobe pneumonia -diuresis given for much of the stay; diuretics placed on hold with recent rise in creatinine -s/p course of IV antibiotic treatment for his pneumonia (7+ days more than adequate) -cxr repeated 12/12 - improved infiltrates, improved effusions -o2 weaned off today, 12/14 #BPH with urinary retention- -needed Watson early in the stay -removed 12/10 -by report there has been concern that duloxetine has been contributing to voiding issues and is on a tapering schedule -continue duloxetine tapering - now on q48h dosing -continue tamsulosin (new this admit) -tolerating such #Chronic atrial fibrillation/hypertension- -resume Xarelto tomorrow am -cont metoprolol titrate and diltiazem -hold lisinopril #COPD - -no exacerbation at this time -Duonebs PRN -Continue Trelegy #Type 2 Diabetes mellitus- -Hold metformin -Continue Jardiance -HbA1C 6.7 -Appreciate pharmacy glycemic consult -novolog SSI -BSGscontrolled #Hyperlipidemia - -Continue atorvastatin #Neuropathy - -Is presently on tapering schedule of duloxetine due to concerns regarding exacerbation of urinary retention from such #Chronic gout - -Continue allopurinol -no flare at this time #AISHA - -cont BIPAP, #CHLOE - -2nd to over-diuresis -HOLD NADIRA -HOLD diuretics, but likely can resume lasix in am tomorrow VTE Prophylaxis - Xarelto - resume in am 12/15 cont PT/OT dispo - rehab ([place], should d/c there on 12/17) Admission and Anticipated Discharge Date Admission Date: December 05, 2024 Subjective a.fib rates nearly all <100, sometimes 50s, but mostly 60s at rest with activity low 100s feeling well today scant cough no dyspnea no JERONIMO right hip pain improved from several days ago right knee pain is better eating very well Review of Systems Review of Systems: gen - no fevers cv - no cp, no chest tightness pulm - no sputum GI - no N/V Physical Exam Physical Exam: gen - pleasant male in NAD, sitting in chair, looks well neck - no JVD mouth - MMM heart - irregularly irregular, s1 s2, rate upper 50s, no murmur lungs - decreased BS bases, mild rales bases, no wheeze abd- soft NT ND BS+ ext - no edema, pulses b/l feet 2+ psych - a/o x 3 Results & Data Results & Data Vital Signs (Past 12 Hours) Vital Signs Temp Pulse Pulse Resp BP Pulse Ox O2 Del Method 12/14/24 11:13 36.6 C 92 H 20 113/73 91 Nasal Cannula 12/14/24 08:00 89 12/14/24 07:16 36.5 C 81 20 144/83 H 94 Nasal Cannula 12/14/24 05:40 37.1 C 79 20 135/81 95 Nasal Cannula 12/14/24 03:23 79 O2 Flow Rate 12/14/24 11:13 2 12/14/24 08:00 12/14/24 07:16 2.0 12/14/24 05:40 2 12/14/24 03:23 Laboratory Results Laboratory Results - last 24 hr 12/13/24 12/13/24 12/14/24 16:19 20:47 06:38 WBC RBC Hgb Hct MCV MCH MCHC RDW Std Deviation RDW Coeff of Marce Plt Count MPV Immature Gran % (Auto) Neut % (Auto) Lymph % (Auto) [place] % (Auto) Eos % (Auto) Baso % (Auto) Neut # (Auto) Lymph # (Auto) [place] # (Auto) Eos # (Auto) Baso # (Auto) Immature Gran # (Auto) Sodium 135 L Potassium 4.1 Chloride 98 Carbon Dioxide 29 Anion Gap 8 BUN 39 H Creatinine 1.49 H D Est Cr Clr Drug Dosing 61.0 eGFR 49.86 BUN/Creatinine Ratio 26.2 H Glucose 137 H POC Glucose 164 H 149 H Calcium 9.5 C-Reactive Protein 13.05 H 12/14/24 12/14/24 12/14/24 07:18 08:20 11:11 WBC 14.86 H RBC 3.30 L Hgb 10.0 L Hct 30.9 L MCV 93.6 MCH 30.3 MCHC 32.4 RDW Std Deviation 62.6 H RDW Coeff of Marce 18.2 H Plt Count 326 MPV 10.6 Immature Gran % (Auto) 1.7 Neut % (Auto) 81.6 Lymph % (Auto) 5.7 [place] % (Auto) 9.8 Eos % (Auto) 1.0 Baso % (Auto) 0.2 Neut # (Auto) 12.12 H Lymph # (Auto) 0.85 L [place] # (Auto) 1.45 H Eos # (Auto) 0.15 Baso # (Auto) 0.03 Immature Gran # (Auto) 0.26 H Sodium Potassium Chloride Carbon Dioxide Anion Gap BUN Creatinine Est Cr Clr Drug Dosing eGFR BUN/Creatinine Ratio Glucose POC Glucose 142 H 221 H Calcium C-Reactive Protein PG Care Time/CCT Total # of Minutes Spent Total Time Spent with Patient: Total time spent is greater than 50% in coordination of care (as documented) at patient's floor/unit and/or counseling patient: Coding Level of Care Code 81982 SUB INP/OBS CARE 235MIN Diagnoses Staphylococcus aureus bacteremia R78.81; B95.61 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
[2024-12-15 06:37] LABS: Anion Gap 6.0 (3-11); Blood Urea Nitrogen 40.0 mg/dl (6-23); Calcium 9.0 mg/dl (8.6-10.3); Carbon Dioxide 29.0 mmol/L (21-32); Chloride 98.0 mmol/L (98-107); Creatinine Clr Calc Pharmacy 63.1 ml/min; Glucose 124.0 mg/dl (70-99(Fasting)); Potassium 3.8 mmol/L (3.5-5.1); Sodium 133.0 mmol/L (136-145)
[2024-12-15] MEDS: FUROSEMIDE 40 MG TAB PO SCH (09:40)
--- NOTE | 2024-12-15 18:56 | Hospitalist Progress Note ---
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 Also has had right sided hip pain for several months followed by [facility] [place] [facility]o. Ultimately confirmed to have MSSA bacteremia with source being his right hip orthosis. #Staph aureus (MSSA) bacteremia + bacteroides fragilis - -source - right hip -s/p IR drainage of right hip fluid - culture with staph aureus (MSSA); no other pathogens isolated -repeat blood cx's x 4 sets negative ensuring test of cure -[place] w/o valvular vegetations -appreciate cardiology & ID consultations -previously on cefepime (+ a few days of vancomycin) -then transitioned to IV cefazolin 12/09 -added metronidazole IV for bacteroides coverage 12/08 -has completed 7 days of IV/PO metro -discussed his care with Dr Beltran from orthopedics on 12/12 -at this time, due to medical complexity and other factors, no plans for I/D or explantation of right hip hardware unless there is clinical worsening or failure to improve -if any worsening or failure to improve then I/D / wash-out to be performed -PICC line placed RUE recs from ID: -Continue cefazolin 2 g IV q8h x 6 weeks (day #1 - date of abscess aspiration; thus, from 12/11 - 01/21/25) -weekly CBC with diff, CMP while on cefazolin -Following completion of 6 weeks of IV antibiotics, can transition to cefadroxil 500 mg PO BID for lifelong oral suppression #right hip periprosthetic fracture and right hip infection - -s/p IR drainage of fluid collection -culture with MSSA -for periprosthetic fracture - no specific Rx needed -for right hip infection - see discussion above -appreciate ID consultation & recs #Toe ulcers - -cont local wound care #Acute respiratory failure with hypoxia - resolved - -2nd to acute HFpEF and b/l lower lobe pneumonia -diuresis given for much of the stay; diuretics placed on hold with recent rise in creatinine -s/p course of IV antibiotic treatment for his pneumonia (7+ days more than adequate) -cxr repeated 12/12 - improved infiltrates, improved effusions -o2 weaned off 12/14 #BPH with urinary retention- -needed Watosn early in the stay -removed 12/10 -by report there has been concern that duloxetine has been contributing to voiding issues and is on a tapering schedule -continue duloxetine tapering - now on q48h dosing - lower tomorrow from 30mg to 20mg -continue tamsulosin (new this admit) #Chronic atrial fibrillation/hypertension- -resumed Xarelto -cont metoprolol titrate and diltiazem (dose increased from 180mg to 240mg) -hold lisinopril #COPD - -no exacerbation at this time -Duonebs PRN -Continue Trelegy #Type 2 Diabetes mellitus- -if Cr tomorrow is stable resume metformin -Continue Jardiance -HbA1C 6.7 -Appreciate pharmacy glycemic consult -novolog SSI -BSGs controlled #Hyperlipidemia - -Continue atorvastatin #Neuropathy - -Is presently on tapering schedule of duloxetine due to concerns regarding exacerbation of urinary retention from such -lower duloxetine dose from 30mg to 20mg q48hr starting tomorrow #Chronic gout - -Continue allopurinol -no flare at this time #AISHA - -cont BIPAP, #CHLOE - -2nd to over-diuresis -HOLD NADIRA -resume lasix today but cont to hold aldactone (start with 40mg of lasix rather than 80mg) VTE Prophylaxis - Xarelto cont PT/OT dispo - rehab ([place], [facility] d/c there on 12/17) Admission and Anticipated Discharge Date Admission Date: December 05, 2024 Subjective no events overnight feels well eating good loose stool this am improving R hip pain improving R knee pain ambulating remains off of O2 Review of Systems Review of Systems: gen - no fevers cv - no cp, no edema, no orthopnea pulm - no dyspnea or cough GI - no nausea/emesis Physical Exam Physical Exam: gen - pleasant, NAD, lying in bed comfortably neck - no JVD mouth - MMM, no thrush heart - irregularly irregular, s1 s2, rates <100, no murmur lungs - decreased BS bases - no change; minimal rales R base, no wheeze abd- soft NT ND BS+ ext - no edema, pulses b/l feet 2+ musculo - scant effusion (if any) R knee; right groin - previous IR drainage site clean, no hematoma psych - a/o x 3 Results & Data Results & Data Vital Signs (Past 12 Hours) Vital Signs Temp Pulse Pulse Resp BP Pulse Ox O2 Del Method 12/15/24 16:11 36.4 C L 63 22 93/64 L 93 Room Air 12/15/24 14:17 59 L 12/15/24 11:16 36.7 C 83 22 117/75 90 Room Air 12/15/24 08:00 89 12/15/24 07:05 36.6 C 91 H 22 114/80 90 Room Air Laboratory Results Laboratory Results - last 24 hr 12/15/24 12/15/24 12/15/24 05:49 07:09 11:18 Sodium 133 L Potassium 3.8 Chloride 98 Carbon Dioxide 29 Anion Gap 6 BUN 40 H Creatinine 1.44 H Est Cr Clr Drug Dosing 63.1 eGFR 51.95 BUN/Creatinine Ratio 27.8 H Glucose 124 H POC Glucose 120 H 188 H Calcium 9.0 PG Care Time/CCT Total # of Minutes Spent Total Time Spent with Patient: Total time spent is greater than 50% in coordination of care (as documented) at patient's floor/unit and/or counseling patient: Coding Level of Care Code 15105 SUB INP/OBS CARE 2/35MIN Diagnoses Staphylococcus aureus bacteremia R78.81; B95.61 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
[2024-12-16 06:48] LABS: Hematocrit (blood only) 28.6 % (42.0-52.0); Hemoglobin 9.3 g/dl (14.0-18.0); Mean Corpuscular Hemoglobin 30.4 pg (25.0-34.0); Mean Corpuscular Volume 93.5 fL (80.0-100.0); Platelet Count 342 K/uL (130-400); RDW Standard Deviation 62.4 fL (36.4-46.3); Red Blood Count 3.06 M/uL (4.70-6.10); White Blood Count 14.07 K/ul (4.8-10.8)
[2024-12-16 07:10] LABS: Anion Gap 5.0 (3-11); Blood Urea Nitrogen 40.0 mg/dl (6-23); Calcium 9.0 mg/dl (8.6-10.3); Carbon Dioxide 30.0 mmol/L (21-32); Chloride 98.0 mmol/L (98-107); Creatinine Clr Calc Pharmacy 63.0 ml/min; Glucose 132.0 mg/dl (70-99(Fasting)); Magnesium 2.4 mg/dl (1.7-2.4); Potassium 3.9 mmol/L (3.5-5.1); Sodium 133.0 mmol/L (136-145)
--- NOTE | 2024-12-16 07:56 | Orthopedic Progress Note ---
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 Clinically is doing much better now. Got methicillin sensitive staph infection. Plan: Considering everything involved is mobile for medical comorbidities I would not recommend conservative care and chronic antibiotic suppression as long as he is doing okay. He is looks stable, pains improved. He is rashaun need IV followed by p.o. antibiotics regardless. As long as he is doing well clinically we will continue with that course. The plan is 6 weeks of IV antibiotics followed by chronic p.o. suppression for life. Any orthopedic questions can be decameter [phone]. (2) Diabetic foot ulcer: (3) Staphylococcus aureus bacteremia: (4) Community acquired pneumonia: Admission and Anticipated Discharge Date Admission Date: December 05, 2024 Subjective 69-year-old gentleman with multiple medical comorbidities admitted with the pneumonia bacteremia will looks to be infected right hip prosthesis. He is doing much better since aspiration. His pain is controlled. He is stable. Physical Exam Physical Exam: Physical examination reveals a pleasant [place] male. He is sitting up in his bedside eating breakfast. Examination of the right hip reveals the incision to be benign. No major swelling. Minimal pain with hip motion. He is neurologically intact. Results & Data Vital Signs (Past 12 Hours) Vital Signs Temp Pulse Pulse Resp BP Pulse Ox O2 Del Method 12/16/24 07:15 36.8 C 85 21 119/78 90 Room Air 12/16/24 07:14 66 12/16/24 03:36 36.9 C 78 18 109/68 92 CPAP 12/15/24 23:38 66 12/15/24 23:00 BiPAP 12/15/24 22:34 36.9 C 89 20 111/70 92 CPAP Laboratory Results Culture results from the hip aspirate the area revealed methicillin-sensitive staph similar to the bacteremia.
--- NOTE | 2024-12-16 19:24 | Hospitalist Progress Note ---
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 Also has had right sided hip pain for several months followed by [facility] [place] [facility]. Ultimately confirmed to have MSSA bacteremia with source being his right hip orthosis. #Staph aureus (MSSA) bacteremia + bacteroides fragilis - -source - right hip -s/p IR drainage of right hip fluid - culture with staph aureus (MSSA); no other pathogens isolated -repeat blood cx's x 4 sets negative ensuring test of cure -STER[place] w/o valvular vegetations -previously on cefepime (+ a few days of vancomycin) -then transitioned to IV cefazolin 12/09 -added metronidazole IV for bacteroides coverage 12/08 -completed 7 days of IV/PO metro now discontinued -discussed his care with Dr Beltran from orthopedics on 12/12 -at this time, due to medical complexity and other factors, no plans for I/D or explantation of right hip hardware unless there is clinical worsening or f ailure to improve -if any worsening or failure to improve then I/D / wash-out to be performed -CRP improving on IV abx -WBC count slowly improving -PICC line placed RUE recs from ID: -Continue cefazolin 2 g IV q8h x 6 weeks (day #1 - date of abscess aspiration; thus, from 12/11 - 01/21/25) -weekly CBC with diff, CMP while on cefazolin -Following completion of 6 weeks of IV antibiotics, can transition to cefadroxil 500 mg PO BID for lifelong oral suppression #right hip periprosthetic fracture and right hip infection - -s/p IR drainage of fluid collection -culture with MSSA -for periprosthetic fracture - no specific Rx needed -for right hip infection - see discussion above -appreciate ID consultation & recs #Toe ulcers - -cont local wound care #Acute respiratory failure with hypoxia - resolved - -2nd to acute HFpEF and b/l lower lobe pneumonia -diuresis given for much of the stay; diuretics placed on hold with recent rise in creatinine -s/p course of IV antibiotic treatment for his pneumonia (7+ days more than adequate) -cxr repeated 12/12 - improved infiltrates, improved effusions -o2 weaned off 12/14 -lasix resumed 12/15 #BPH with urinary retention- -needed Watson early in the stay -removed 12/10 -by report there has been concern that duloxetine has been contributing to voiding issues and is on a tapering schedule -continue duloxetine tapering - now on q48h dosing - lower tomorrow from 30mg to 20mg -continue tamsulosin (new this admit) #Chronic atrial fibrillation/hypertension- -resumed Xarelto -cont metoprolol titrate and diltiazem (dose increased from 180mg to 240mg) -hold lisinopril -- BPs controlled w/o such #COPD - -no exacerbation at this time -Duonebs PRN -Continue Trelegy #Type 2 Diabetes mellitus- -Continue Jardiance -HbA1C 6.7 -Appreciate pharmacy glycemic consult -novolog SSI -BSGs controlled #Hyperlipidemia - -Continue atorvastatin #Neuropathy - -Is presently on tapering schedule of duloxetine due to concerns regarding exacerbation of urinary retention from such -lower duloxetine dose from 30mg to 20mg q48hr starting tomorrow -do the 20mg every other day x 1 week then stop #Chronic gout - -Continue allopurinol -no flare at this time #AISHA - -cont BIPAP, #CHLOE - -2nd to over-diuresis -cont to HOLD NADIRA -resumed lasix 12/15 at 40mg/day; cont to hold aldactone for now VTE Prophylaxis - Xarelto cont PT/OT dispo - rehab ([place], should d/c there on 12/17) daughter updated by phone this evening, 12/16 Admission and Anticipated Discharge Date Admission Date: December 05, 2024 Subjective no events overnight feels very good eating well drinking well minimal R hip and R knee pain no dyspnea no dyspnea on exertion no O2 requirement scant cough ambulating decently Review of Systems Review of Systems: gen - no fevers or chills cv - no edema, no orthopnea GI - stools are soft, but no stool today yet Physical Exam Physical Exam: gen - pleasant, NAD, lying in bed comfortably watching [place] on TV neck - no JVD mouth - MMM, no thrush heart - irregularly irregular, s1 s2, rates <100, no murmur lungs - decreased BS bases but airation improved today; scant rales b/l bases, no wheeze abd- soft NT ND BS+ ext - no edema, pulses b/l feet 2+ musculo - right groin - previous IR drainage site clean, no hematoma psych - a/o x 3 Results & Data Results & Data Vital Signs (Past 12 Hours) Vital Signs Temp Pulse Pulse Resp BP Pulse Ox O2 Del Method 12/16/24 19:18 36.7 C 75 18 142/79 H 92 Room Air 12/16/24 16:26 36.5 C 65 24 106/74 88 L Room Air 12/16/24 14:00 56 L 12/16/24 11:12 36.5 C 68 23 116/76 88 L Room Air Laboratory Results Laboratory Results - last 24 hr 12/15/24 12/16/24 12/16/24 19:50 05:58 07:18 WBC 14.07 H RBC 3.06 L Hgb 9.3 L Hct 28.6 L MCV 93.5 MCH 30.4 MCHC 32.5 RDW Std Deviation 62.4 H RDW Coeff of Marce 18.5 H Plt Count 342 MPV 10.7 Sodium 133 L Potassium 3.9 Chloride 98 Carbon Dioxide 30 Anion Gap 5 BUN 40 H Creatinine 1.44 H Est Cr Clr Drug Dosing 63.0 eGFR 51.95 BUN/Creatinine Ratio 27.8 H Glucose 132 H POC Glucose 122 H 131 H Calcium 9.0 Magnesium 2.4 C-Reactive Protein 9.53 H 12/16/24 12/16/24 11:16 16:29 WBC RBC Hgb Hct MCV MCH MCHC RDW Std Deviation RDW Coeff of Marce Plt Count MPV Sodium Potassium Chloride Carbon Dioxide Anion Gap BUN Creatinine Est Cr Clr Drug Dosing eGFR BUN/Creatinine Ratio Glucose POC Glucose 206 H 117 H Calcium Magnesium C-Reactive Protein PG Care Time/CCT Total # of Minutes Spent Total Time Spent with Patient: Total time spent is greater than 50% in coordination of care (as documented) at patient's floor/unit and/or counseling patient: Coding Level of Care Code 76520 SUB INP/OBS CARE 2/35MIN Diagnoses Staphylococcus aureus bacteremia R78.81; B95.61 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
[2024-12-17 08:53] LABS: Hematocrit (blood only) 31.1 % (42.0-52.0); Hemoglobin 10.2 g/dl (14.0-18.0); Mean Corpuscular Hemoglobin 30.9 pg (25.0-34.0); Mean Corpuscular Volume 94.2 fL (80.0-100.0); Platelet Count 373 K/uL (130-400); RDW Standard Deviation 63.0 fL (36.4-46.3); Red Blood Count 3.30 M/uL (4.70-6.10); White Blood Count 17.55 K/ul (4.8-10.8)
[2024-12-17 09:14] LABS: Anion Gap 6 (3-11); Blood Urea Nitrogen 36 mg/dl (6-23); Calcium 9.2 mg/dl (8.6-10.3); Carbon Dioxide 29 mmol/L (21-32); Chloride 96 mmol/L (98-107); Creatinine Clr Calc Pharmacy 64.8 ml/min; Glucose 240 mg/dl (70-99(Fasting)); Potassium 4.6 mmol/L (3.5-5.1); Sodium 131 mmol/L (136-145)
[2024-12-17 09:16] LABS: Alanine Aminotransferase < 3 U/L (7-52); Albumin Level 2.6 gm/dl (3.4-5.0); Alkaline Phosphatase 71 U/L (34-104); Bilirubin,Total 0.5 mg/dl (0.2-1.0); Total Protein 6.4 gm/dl (6.0-8.3)
[2024-12-17] MEDS: OPTIRAY 320 100ml IV ONE (15:19)
--- NOTE | 2024-12-17 15:42 | CT Scan Report ---
RIGHT HIP CT WITH CONTRAST CLINICAL HISTORY: Known fluid pocket R hip, worsening wbc count. COMPARISON STUDY: Ultrasound guided right hip aspiration December 11, 2024. Right hip and pelvis radi ographs November 08, 2024. CT of the abdomen and pelvis December 09, 2024. TECHNIQUE: Axial images of the right hip were obtained following intravenous injection of 95 cc of Op tiray 320 IV. Sagittal and coronal reformats were viewed. A dose lowering technique was utilized adhe ring to the principles of ALARA. FINDINGS: Bladder wall thickening with adjacent stranding is again noted. A mildly enlarged right ext ernal iliac lymph node on image 107 of 385 measures 2.1 x 1.5 cm. This has increased in size since pr ior CT. This is likely reactive. Right hip arthroplasty is noted. Evaluation of the adjacent soft tis sues is significantly compromised given streak artifact from the hardware. No fractures are identifie d within visualized portions of the pelvis. Of note, there is bony erosion and an associated nondispl aced intertrochanteric fracture of the right femur which were shown on prior CT and radiograph. There is an adjacent fluid collection along the posterior aspect of the proximal right femur on image 251 which measures 6.9 x 4.2 cm, previously 6.4 x 3.4 cm. An additional rim-enhancing fluid collection im mediately lateral to the right hip on image 89 measures 5.8 x 2.5 cm, previously 4.8 x 2.5 cm. No sof t tissue gas is present. No new fluid collections are present. IMPRESSION: 1. Status post total right hip arthroplasty. Exam compromised given streak artifact from the hardware . 2. Redemonstration of a nondisplaced right femoral periprosthetic intertrochanteric fracture, likely subacute. Associated lucency/erosion of the posterior cortex of the proximal right femur which may be related to the fracture. However, osteomyelitis or osteolysis are within the differential. 3. Mild increase in size of an adjacent fluid collection along the posterior aspect of the right femu r since prior CT, measuring 6.9 x 4.2 cm. This may represent an abscess. 4. Mild increase in size of a rim-enhancing fluid collection immediately lateral to the right hip whi ch also may represent an abscess or joint effusion. Septic arthritis cannot be excluded. ACT 112: Negative or not required by law. Electronically signed by: Tomas Parra M.D. 12/17/2024 3:41 PM
--- NOTE | 2024-12-17 19:03 | Hospitalist Progress Note ---
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 Also has had right sided hip pain for several months [place] [facility] [place] [facility] Ultimately confirmed to have MSSA bacteremia with source being his right hip orthosis. #Staph aureus (MSSA) bacteremia + bacteroides fragilis - -source - right hip -s/p IR drainage of right hip fluid - culture with staph aureus (MSSA); no other pathogens isolated -repeat blood cx's x 4 sets negative ensuring test of cure -STERLING w/o valvular vegetations -previously on cefepime (+ a few days of vancomycin) -then transitioned to IV cefazolin 12/09 -added metronidazole IV for bacteroides coverage 12/08 -completed 7 days of IV/PO metro -- now discontinued -discussed his care with Dr Beltran from orthopedics multiple times -at this time, due to medical complexity and other factors, no plans for I/D or explantation of right hip hardware -CRP had been improving on IV abx, and wbc count had been improving; HOWEVER -- wbc count today now 17, and CRP has stalled in the mid s -thus, obtained repeat imaging of right hip today -original fluid collection now slightly larger at 6.9cm -there appears to be a small 2nd fluid collection now -care d/w orthopedics; care d/w ID today -plan: I/D or hardware explantation still not advised by ortho -however, will pursue repeat IR drainage by radiology -will d/w IR in am tomorrow -Continue cefazolin 2 g IV q8h x 6 weeks (day #1 - date of abscess aspiration; thus, from 12/11 - 01/21/25) -weekly CBC with diff, CMP while on cefazolin -Following completion of 6 weeks of IV antibiotics, can transition to cefadroxil 500 mg PO BID for lifelong oral suppression -RUE PICC line in place #right hip periprosthetic fracture and right hip infection - -s/p IR drainage of fluid collection -culture with MSSA -for periprosthetic fracture - no specific Rx needed -for right hip infection - see discussion above -appreciate ID consultation & recs #Toe ulcers - -cont local wound care #Acute respiratory failure with hypoxia - resolved - -2nd to acute HFpEF and b/l lower lobe pneumonia -diuresis given for much of the stay; diuretics placed on hold with recent rise in creatinine -s/p course of IV antibiotic treatment for his pneumonia (7+ days more than adequate) -cxr repeated 12/12 - improved infiltrates, improved effusions -o2 weaned off 12/14 -lasix resumed 12/15 #BPH with urinary retention- -needed Watson early in the stay -removed 12/10 -by report there has been concern that duloxetine has been contributing to voiding issues and is on a tapering schedule -continue duloxetine tapering - now on q48h dosing - lower tomorrow from 30mg to 20mg -continue tamsulosin (new this admit) #Chronic atrial fibrillation/hypertension- -had resumed Xarelto, but given uncertain of R hip infectious issues will place Xarelto on hold again -cont metoprolol titrate and diltiazem (dose increased from 180mg to 240mg) -hold lisinopril -- BPs controlled w/o such #COPD - -no exacerbation at this time -Duonebs PRN -Continue Trelegy #Type 2 Diabetes mellitus- -Continue Jardiance -HbA1C 6.7 -Appreciate pharmacy glycemic consult -novolog SSI -BSGs controlled #Hyperlipidemia - -Continue atorvastatin #Neuropathy - -Is presently on tapering schedule of duloxetine due to concerns regarding exacerbation of urinary retention from such -lower duloxetine dose from 30mg to 20mg q48hr starting tomorrow -do the 20mg every other day x 1 week then stop #Chronic gout - -Continue allopurinol -no flare at this time #AISHA - -cont BIPAP, #CHLOE - -2nd to over-diuresis -CHLOE resolved; Cr 1.4 and stable today -cont to HOLD NADIRA -resumed lasix 12/15 at 40mg/day; cont to hold aldactone for now #hyponatremia - -mild -2nd to "pseudo"hyponatremia (glucose was >200 on today's BMP) -2nd to lasix use -repeat BMP am VTE Prophylaxis - Xarelto cont PT/OT dispo - ultimately [place] re[facility] but cancel dc to there today due to rising wbc count daughter updated by phone 12/16 complex care coordination care d/w nursing, ID, orthopedics, and case management Admission and Anticipated Discharge Date Admission Date: December 05, 2024 Subjective patient denies any major changes or complaints tele overnight - a.fib, rates <100 mild right hip pain - no change mild right knee pain - no change (pain is just above the right knee) eating well napping at times Review of Systems Review of Systems: gen - no fevers cv - no cp, no orthopnea pulm - no dyspnea; cough resolved Physical Exam Physical Exam: gen - pleasant, NAD, lying in bed comfortably; was taking a nap when I came in initially neck - no JVD mouth - MMM, no thrush heart - irregularly irregular, s1 s2, rates <100, no murmur lungs - decreased BS bases but airation continues to improve; scant rales b/l bases, no wheeze abd- soft NT ND BS+ ext - no edema, pulses b/l feet 2+ psych - a/o x 3 Results & Data Results & Data Vital Signs (Past 12 Hours) Vital Signs Temp Pulse Pulse Resp BP Pulse Ox O2 Del Method 12/17/24 16:27 36.8 C 86 22 144/86 H 89 L Room Air 12/17/24 14:39 63 12/17/24 11:15 36.4 C L 68 19 128/69 94 Room Air 12/17/24 08:00 69 12/17/24 07:10 36.6 C 97 H 21 132/85 90 Room Air Laboratory Results Laboratory Results - last 24 hr 12/17/24 12/17/24 12/17/24 07:13 08:34 11:20 WBC 17.55 H RBC 3.30 L Hgb 10.2 L Hct 31.1 L MCV 94.2 MCH 30.9 MCHC 32.8 RDW Std Deviation 63.0 H RDW Coeff of Marce 18.6 H Plt Count 373 MPV 10.3 Sodium 131 L Potassium 4.6 Chloride 96 L Carbon Dioxide 29 Anion Gap 6 BUN 36 H Creatinine 1.40 Est Cr Clr Drug Dosing 64.8 eGFR 53.74 BUN/Creatinine Ratio 25.7 H Glucose 240 H POC Glucose 122 H 167 H Calcium 9.2 Total Bilirubin 0.5 Direct Bilirubin 0.2 AST 11 L ALT < 3 L Alkaline Phosphatase 71 C-Reactive Protein 9.44 H Total Protein 6.4 Albumin 2.6 L Diagnostic Findings Hip CT 12/17/24 14:[address] WITH CONTRAST CLINICAL HISTORY: Known fluid pocket R hip, worsening wbc count. COMPARISON STUDY: Ultrasound guided right hip aspiration December 11, 2024. Right hip and pelvis radiographs November 08, 2024. CT of the abdomen and pelvis December 09, 2024. TECHNIQUE: Axial images of the right hip were obtained following intravenous injection of 95 cc of Optiray 320 IV. Sagittal and coronal reformats were viewed. A dose lowering technique was utilized adhering to the principles of ALARA. FINDINGS: Bladder wall thickening with adjacent stranding is again noted. A mildly enlarged right external iliac lymph node on image 107 of 385 measures 2.1 x 1.5 cm. This has increased in size since prior CT. This is likely reactive. Right hip arthroplasty is noted. Evaluation of the adjacent soft tissues is significantly compromised given streak artifact from the hardware. No fractures are identified within visualized portions of the pelvis. Of note, there is bony erosion and an associated nondisplaced intertrochanteric fracture of the right femur which were shown on prior CT and radiograph. There is an adjacent fluid collection along the posterior aspect of the proximal right femur on image 251 which measures 6.9 x 4.2 cm, previously 6.4 x 3.4 cm. An additional rim- enhancing fluid collection immediately lateral to the right hip on image 89 measures 5.8 x 2.5 cm, previously 4.8 x 2.5 cm. No soft tissue gas is present. No new fluid collections are present. IMPRESSION: 1. Status post total right hip arthroplasty. Exam compromised given streak artifact from the hardware. 2. Redemonstration of a nondisplaced right femoral periprosthetic intertrochanteric fracture, likely subacute. Associated lucency/erosion of the posterior cortex of the proximal right femur which may be related to the fracture. However, osteomyelitis or osteolysis are within the differential. 3. Mild increase in size of an adjacent fluid collection along the posterior aspect of the right femur since prior CT, measuring 6.9 x 4.2 cm. This may represent an abscess. 4. Mild increase in size of a rim-enhancing fluid collection immediately lateral to the right hip which also may represent an abscess or joint effusion. Septic arthritis cannot be excluded. ACT 112: Negative or not required by law. Electronically signed by: Tomas Parra M.D. 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
[2024-12-18 07:44] LABS: Creatinine Clr Calc Pharmacy 66.2 ml/min
[2024-12-18 07:47] LABS: Anion Gap 8.0 (3-11); Blood Urea Nitrogen 34.0 mg/dl (6-23); Calcium 9.1 mg/dl (8.6-10.3); Carbon Dioxide 28.0 mmol/L (21-32); Chloride 97.0 mmol/L (98-107); Creatinine Clr Calc Pharmacy 65.7 ml/min; Glucose 131.0 mg/dl (70-99(Fasting)); Potassium 4.6 mmol/L (3.5-5.1); Sodium 133.0 mmol/L (136-145)
--- NOTE | 2024-12-18 13:29 | CT Scan Report ---
CT GUIDED RIGHT HIP FLUID COLLECTION ASPIRATION INDICATION: Right hip fluid collection; bacteremia PROCEDURE: Procedure and risks were explained. Informed consent was obtained. Final timeout was compl eted. The right hip was prepped and draped in sterile fashion. 1% lidocaine was utilized for skin ane sthesia. Utilizing ultrasound guidance, an 18-gauge Chiba needle was advanced into the right hip fluid collect ion. Approximately 20 mL of purulent fluid was removed and sent to lab for analysis. The needle was r emoved and Band-Aid applied. The patient tolerated the procedure well. IMPRESSION: Right hip aspiration as detailed above. Performed, dictated, and signed by J Carlos Dugan PA-C; to be co-signed by Dr. Trevor Arteaga. Electronically signed by: Trevor Arteaga M.D. 12/18/2024 3:05 PM
[2024-12-18 14:19] LABS: Color Synovial Fluid Brown; Mononuclear WBC Synovial 19.9 %; Polynuclear WBC Synovial 80.1 %; RBC Synovial Fluid Auto 200000 /uL
--- NOTE | 2024-12-18 19:50 | Hospitalist Progress Note ---
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 Also has had right sided hip pain for several months followed by [facility] [place] [facility]. Ultimately confirmed to have MSSA bacteremia with source being his right hip orthosis. #Staph aureus (MSSA) bacteremia + bacteroides fragilis - -source - right hip -s/p IR drainage of right hip fluid 12/11 - culture with staph aureus (MSSA); no other pathogens isolated -repeat imaging of right hip 12/17 -original fluid collection now slightly larger at 6.9cm -there appears to be a small 2nd fluid collection now -s/p IR drainage again today, 12/18 - gram stain with GPC - likely to be MSSA -repeat blood cx's x 4 sets negative ensuring test of cure -STERLING w/o valvular vegetations -previously on cefepime (+ a few days of vancomycin) -then transitioned to IV cefazolin 12/09 -added metronidazole IV for bacteroides coverage 12/08 -completed 7 days of IV/PO metro -- now discontinued -discussed his care with Dr Beltran from orthopedics multiple times -due to medical complexity and other factors, no plans for I/D or explantation of right hip hardware -despite IR drainage and IV abx x 2 weeks his WBC count & CRP remain elevated -plan to repeat CBC in am -Continue cefazolin 2 g IV q8h x 6 weeks (day #1 - date of abscess aspiration; thus, from 12/11 - 01/21/25) -weekly CBC with diff, CMP while on cefazolin -Following completion of 6 weeks of IV antibiotics transition to cefadroxil 500 mg PO BID for lifelong oral suppression -RUE PICC line in place -I am concerned he will not obtain source control in the right hip with antibiotics alone -talked with pt, his , and his daughter about this concern #right hip periprosthetic fracture and right hip infection - -s/p IR drainage of fluid collection x 2 -culture with MSSA -for periprosthetic fracture - no specific Rx needed -for right hip infection - see discussion above -appreciate ID consultation & recs #Toe ulcers - -cont local wound care #Acute respiratory failure with hypoxia - resolved - -2nd to acute HFpEF and b/l lower lobe pneumonia -diuresis given for much of the stay; diuretics placed on hold with recent rise in creatinine -s/p course of IV antibiotic treatment for his pneumonia (7+ days more than adequate) -cxr repeated 12/12 - improved infiltrates, improved effusions -o2 weaned off 12/14 -lasix resumed 12/15 #BPH with urinary retention- -needed Watson early in the stay -removed 12/10 -by report there has been concern that duloxetine has been contributing to voiding issues and is on a tapering schedule -continue duloxetine tapering - now on q48h dosing - lower tomorrow from 30mg to 20mg -continue tamsulosin (new this admit) #Chronic atrial fibrillation/hypertension- -place Xarelto on hold again starting today -cont metoprolol titrate and diltiazem (dose increased from 180mg to 240mg) -hold lisinopril -- BPs controlled w/o such #COPD - -no exacerbation at this time -Duonebs PRN -Continue Trelegy #Type 2 Diabetes mellitus- -Continue Jardiance -HbA1C 6.7 -Appreciate pharmacy glycemic consult -novolog SSI -BSGs controlled #Hyperlipidemia - -Continue atorvastatin #Neuropathy - -Is presently on tapering schedule of duloxetine due to concerns regarding exacerbation of urinary retention from such -lower duloxetine dose from 30mg to 20mg q48hr starting tomorrow -do the 20mg every other day x 1 week then stop completely #Chronic gout - -Continue allopurinol -no flare at this time #AISHA - -cont BIPAP, #CHLOE - -2nd to over-diuresis -CHLOE resolved; Cr 1.38 and stable today -cont to HOLD NADIRA -resumed lasix 12/15 at 40mg/day -hold aldactone today, but consider resuming 12/19 #hyponatremia - -mild -2nd to lasix use -repeat BMP am VTE Prophylaxis - Xarelto, but placing on hold starting today cont PT/OT dispo - ultimately [place] [facility], but canceled discharge on 12/17 due to rising wbc count daughter updated by phone 12/16 daughter/ updated at bedside 12/18 care d/w Dr Beltran today by phone care d/w ID via [place] correspondence Admission and Anticipated Discharge Date Admission Date: December 05, 2024 Subjective no changes in status no new complaints continues to have R lateral hip pain - worse with walking during my visit pt's & daughter were at bedside underwent IR drainage of R hip fluid collection - 20ml of purulent fluid obtained pt's family asked multiple question about plan of care tele - a.fib, rates <100 Review of Systems Review of Systems: gen - no fevers cv - no chest pain pulm - no dyspnea, no JERONIMO GI - no diarrhea, no nausea, no emesis, no abd pain Physical Exam Physical Exam: gen - pleasant, NAD, sitting at side of bed neck - no JVD mouth - MMM, no thrush heart - irregularly irregular, s1 s2, no murmur lungs - decreased BS bases - airation improving; rales present both bases; no w heeze abd- soft NT ND BS+ ext - no edema, pulses b/l feet 2+ psych - a/o x 3 Results & Data Results & Data Vital Signs (Past 12 Hours) Vital Signs Temp Pulse Pulse Resp BP Pulse Ox O2 Del Method 12/18/24 19:15 36.6 C 77 18 130/71 98 Nasal Cannula 12/18/24 14:48 36 C L 66 18 128/84 91 Nasal Cannula 12/18/24 14:29 67 12/18/24 14:03 70 14 113/78 92 Nasal Cannula 12/18/24 13:33 36.3 C L 77 16 114/74 90 Nasal Cannula 12/18/24 10:40 36.5 C 59 L 18 105/61 92 Room Air 12/18/24 08:09 90 Nasal Cannula 12/18/24 08:08 36.7 C 100 H 18 131/83 85 L Room Air 12/18/24 08:00 Nasal Cannula O2 Flow Rate 12/18/24 19:15 12/18/24 14:48 2 12/18/24 14:29 12/18/24 14:03 3 12/18/24 13:33 2 12/18/24 10:40 12/18/24 08:09 4 12/18/24 08:08 12/18/24 08:00 4 Laboratory Results Laboratory Results - last 24 hr 12/17/24 12/18/2425 20:29 05:54 05:54 Sodium 133 L Potassium 4.6 Chloride 97 L Carbon Dioxide 28 Anion Gap 8 BUN 34 H Creatinine 1.37 1.38 Est Cr Clr Drug Dosing 66.2 eGFR BUN/Creatinine Ratio Glucose POC Glucose 147 H Calcium Fluid Comment Synovial Source Synovial Color Synovial Appearance Synovial WBC (Auto) Synovial RBC (Auto) Synovial Polynuclear % Synovial Mononuclear % 12/18/24 12/18/24 12/18/24 05:54 05:54 07:21 Sodium Potassium Chloride Carbon Dioxide Anion Gap BUN Creatinine Est Cr Clr Drug Dosing 65.7 eGFR 55.15 54.67 BUN/Creatinine Ratio 24.6 H Glucose 131 H POC Glucose 161 H Calcium 9.1 Fluid Comment Synovial Source Synovial Color Synovial Appearance Synovial WBC (Auto) Synovial RBC (Auto) Synovial Polynuclear % Synovial Mononuclear % 12/18/24 12/18/24 12/18/24 11:02 13:05 16:18 Sodium Potassium Chloride Carbon Dioxide Anion Gap BUN Creatinine Est Cr Clr Drug Dosing eGFR BUN/Creatinine Ratio Glucose POC Glucose 171 H 153 H Calcium Fluid Comment Synovial Source Hip Synovial Color Brown Synovial Appearance Turbid Synovial WBC (Auto) 007905 H Synovial RBC (Auto) 810385 Synovial Polynuclear % 80.1 Synovial Mononuclear % 19.9 PG Care Time/CCT Total # of Minutes Spent Total Time Spent with Patient: Total time spent is greater than 50% in coordination of care (as documented) at patient's floor/unit and/or counseling patient: Coding Level of Care Code 11228 SUB INP/OBS CARE 3/50MIN Diagnoses Staphylococcus aureus bacteremia R78.81; B95.61 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
[2024-12-19 07:45] LABS: Hematocrit (blood only) 27.6 % (42.0-52.0); Hemoglobin 8.9 g/dl (14.0-18.0); Immature Granulocytes # (auto) 0.11 K/uL (0.01-0.20); Immature Granulocytes % (auto) 0.7 %; Mean Corpuscular Hemoglobin 30.2 pg (25.0-34.0); Mean Corpuscular Volume 93.6 fL (80.0-100.0); Platelet Count 364 K/uL (130-400); RDW Standard Deviation 63.8 fL (36.4-46.3); Red Blood Count 2.95 M/uL (4.70-6.10); White Blood Count 16.88 K/ul (4.8-10.8)
[2024-12-19 08:02] LABS: Anion Gap 4.0 (3-11); Blood Urea Nitrogen 34.0 mg/dl (6-23); Calcium 8.9 mg/dl (8.6-10.3); Carbon Dioxide 31.0 mmol/L (21-32); Chloride 98.0 mmol/L (98-107); Creatinine Clr Calc Pharmacy 67.8 ml/min; Glucose 135.0 mg/dl (70-99(Fasting)); Potassium 4.8 mmol/L (3.5-5.1); Sodium 133.0 mmol/L (136-145)
--- NOTE | 2024-12-19 13:13 | XRay Report ---
XR chest 1V portable CLINICAL HISTORY: hypoxia COMPARISON STUDY: 12/13/2024 FINDINGS: Stable cardiomegaly with increased pulmonary vascular congestion. Stable right PICC line. I nspiration is shallow. There is stable stranding opacity at the left lung base. There is an interval focal opacity lateral mid to lower left lung. No other consolidation seen. No pneumothorax. IMPRESSION: 1. CHF with small left pleural effusion. 2. Interval focal opacity lateral left mid to lower lung could represent loculated portion of the ple ural effusion or focal pneumonia. ACT 112: Negative or not required by law. Electronically signed by: Trevor Arteaga M.D. 12/19/2024 1:11 PM
--- NOTE | 2024-12-19 14:00 | Hospitalist Progress Note ---
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 Also has had right sided hip pain for several months followed by [facility]. Ultimately confirmed to have MSSA bacteremia with source being his right hip fluid collection. #Staph aureus (MSSA) bacteremia + bacteroides fragilis #Right hip periprosthetic fracture and right hip infection -source - right hip -s/p IR drainage of right hip fluid 12/11 - culture with staph aureus (MSSA); no other pathogens isolated -repeat imaging of right hip 12/17 -original fluid collection now slightly larger at 6.9cm -there appears to be a small 2nd fluid collection now -s/p IR drainage again 12/18 - gram stain with GPC -repeat blood cx's x 4 sets negative ensuring test of cure -STERLING w/o valvular vegetations -previously on cefepime (+ a few days of vancomycin) -then transitioned to IV cefazolin 12/09 -added metronidazole IV for bacteroides coverage 12/08 -completed 7 days of IV/PO metro -- now discontinued -prior provider discussed with Dr Beltran from orthopedics multiple times -due to medical complexity and other factors, no plans for I/D or e xplantation of right hip hardware -Continue cefazolin 2 g IV q8h (day #1 - date of abscess aspiration; thus, from 12/18 - 01/28/25) -weekly CBC with diff, CMP, ESR, CRP while on cefazolin -Following completion of IV antibiotics transition to cefadroxil 500 mg PO BID for lifelong oral suppression -RUE PICC line in place #nondisplaced right femoral periprosthetic intertrochanteric fracture WBAT #Acute respiratory failure with hypoxia / #Acute on chronic HFpEF -2nd to acute HFpEF and b/l lower lobe pneumonia -diuresis given for much of the stay; diuretics placed on hold when he became hypotensive and increased Cr -s/p course of IV antibiotic treatment for his pneumonia (7+ days more than adequate) -cxr repeated 12/12 - improved infiltrates, improved effusions -o2 weaned off 12/14, but back on since -Lasix resumed 12/15 but at half his usual dose, CXR 12/19 consistent with CHF, will give 40mg IV today -Strict I&Os, daily standing weights #Toe ulcers - -cont local wound care #BPH with urinary retention- -needed Watson early in the stay -removed 12/10 -by report there has been concern that duloxetine has been contributing to voiding issues and is on a tapering schedule -continue duloxetine tapering - now on q48h dosing -continue tamsulosin (new this admit) #Chronic atrial fibrillation/hypertension- -Continue Xarelto -cont metoprolol titrate and diltiazem (dose increased from 180mg to 240mg) -hold lisinopril -- BPs controlled w/o such #COPD - -no exacerbation at this time -Duonebs PRN -Continue Trelegy #Type 2 Diabetes mellitus- -Continue Jardiance -HbA1C 6.7 -Appreciate pharmacy glycemic consult -novolog SSI -BSGs controlled #Hyperlipidemia - -Continue atorvastatin #Neuropathy - -Is presently on tapering schedule of duloxetine due to concerns regarding exacerbation of urinary retention from such -lower duloxetine dose from 30mg to 20mg q48hr -do the 20mg every other day x 1 week then stop completely #Chronic gout - -Continue allopurinol -no flare at this time #AISHA - -cont BIPAP HS #CHLOE - -resolved, secondary to overdiuresis earlier in stay with lasix 80mg IV BID #hyponatremia - -mild VTE Prophylaxis - Xarelto Disposition - medically stable for discharge (will transfer to med/surg if he remains inpatient), ongoing diuresis can occur as outpatient care d/w ID via [place] correspondence Admission and Anticipated Discharge Date Admission Date: December 05, 2024 Subjective Discussed with prior provider who has had extensive conversations with o rthopedics and do not want to perform washout currently. Patient reports pain in hip stable. Hypoxia getting worse over the last few days but no chest pain, shortness of breath or leg swelling Physical Exam Respiratory: normal respiratory effort; no respiratory distress Auscultation: + diminished lung sounds (bibasal); no crackles and no rales Cardiovascular: Rate/Rhythm: regular rate and + irregularly irregular Heart Sounds: no murmur Gastrointestinal (Abdomen): normal bowel sounds, soft, nontender, no hepatosplenomegaly Skin: No erythema over right hip Results & Data Results & Data Vital Signs (Past 12 Hours) Vital Signs Temp Pulse Pulse Resp BP Pulse Ox O2 Del Method 12/19/24 12:26 Nasal Cannula 12/19/24 10:36 36.5 C 62 19 109/64 90 Room Air 12/19/24 08:00 67 12/19/24 07:14 36.5 C 80 18 116/70 92 Nasal Cannula 12/19/24 04:01 36.9 C 93 H 18 98/66 L 91 Nasal Cannula O2 Flow Rate 12/19/24 12:26 2 12/19/24 10:36 12/19/24 08:00 12/19/24 07:14 3 12/19/24 04:01 3 PG Care Time/CCT Total # of Minutes Spent Total Time Spent with Patient: Total time spent is greater than 50% in coordination of care (as documented) at patient's floor/unit and/or counseling patient: Coding Level of Care Code 96744 SUB INP/OBS CARE 3/50MIN Diagnoses Staphylococcus aureus bacteremia R78.81; B95.61 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
[2024-12-19] MEDS: FUROSEMIDE 40 MG/4 ML VIAL IV ONE (14:09)
--- NOTE | 2024-12-19 17:04 | Infectious Disease Progress Nt ---
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: Plan ID Problem List: #MSSA bacteremia #MSSA R hip PJI and R proximal femur abscess s/p IR aspiration 12/11 and 12/18 #Bacteroides fragilis bacteremia #AHRF #Pneumonia #Pilonidal cyst #DM2 #Diabetic foot ulcers: L first toe (MRI L foot without osteomyelitis), R second toe #R JAMES #R TKA Impression: 69 yo M with history of afib, PMR, peripheral neuropathy, pulmonary hypertension, AISHA on nightly BiPAP, HFpEF, DM2, HTN, COPD, gout, hypercholesterolemia, R JAMES, R TKA who presented on 12/05 with complaint of worsening shortness of breath x 4 days, fever, with MSSA and Bacteroides fragilis bacteremia, found to have R hip PJI. On presentation, pt was afebrile with O2 sat in mid 80s, improved on Oxymask 4 L. Labs showed WBC 16.3, Cr 1.64, lactate 2, procal 2.22. UA with >50 WBCs. CXR with L>R basilar densities, may represent atelectasis or mild pneumonia; congestive changes of the cardiovascular system. Pt's respiratory status worsened in the ED with O2 sat remaining in upper 70s to low 80s despite oxymask 12 L, placed on BiPAP. Was started on furosemide, cefepime, azithromycin, Solumedrol. Vanc added 12/06. Admission blood cultures grew MSSA in 3/4 bottles, and Bacteroides fragilis in 1/4 bottles. TTE without vegetations. Repeat blood cultures from 12/07 are NG, prior to adding metronidazole 12/08 to cover B frag. Cefepime narrowed to cefazolin on 12/09. Noted to have L first toe and R second toe ulcers, with XRs showing no acute bony abnormalities. Repeat CXR on 12/08 showed cardiomegaly and emphysema with evidence of CHF; layering pleural effusions with dependent consolidation. Pt reported more pain around his R JAMES and TKA for the last few months. R hip XR showed a subacute/healing fracture through the greater trochanter of the R proximal femur. R knee XR showed soft tissue swelling and small joint effusion. Ortho was consulted for further evaluation--had low suspicion for periprosthetic joint infections. CT A/P with IV contrast was performed 12/09 to further work-up the Bacteroides bacteremia--noted bladder wall was thickened with surrounding inflammation, R>L pleural effusions with dependent consolidation, liver appeared cirrhotic in morphology, cortical erosion along medial cortex of R proximal femur with ~6.5 cm pocket of adjacent fluid which is pathologically indeterminate and could potentially represent bursal fluid but sterility cannot be assessed by imaging, and an indeterminate 6 cm ovoid cystic structure in subcutaneous soft tissues along inferior R gluteal crease which is indeterminate and could potentially represent pilonidal cyst. Pulm was consulted--felt his pleural effusions were chronic and small, did not feel pt needed a thoracentesis. Recommended diuretics and treating for CAP. Surgery was consulted regarding concern for pilonidal cyst. They felt the appearance on CT did not look like abscess, and on exam there were no signs of infection. They feel this may be an uninfected fluid collection like small coccygeal cyst, without need for acute surgical interve ntion. Could consider aspiration, although there is concern that this could risk introducing infection to the collection. Due to unclear source of MSSA and Bacteroides fragilis bacteremia, pt underwent further work-up with MRI L foot 12/11 which showed no osteomyelitis, STERLING 12/12 without vegetations. US guided aspiration of R hip fluid collection 12/11--removed ~20 ml of purulent fluid which grew MSSA. Prior ID note discussion on 12/13/[address] Soco Vargas: Ortho discussed with radiology, who felt the fluid collection involved the hip joint. Will treat as R hip PJI, which is likely the source of pt's MSSA bacteremia. Per discussion with ortho, pt is a poor surgical candidate, with uncemented hip replacement well ingrown and present for 20 years, so removal of the hardware is not recommended unless clinically worsens with antibiotics. CT A/P 12/09 did comment on cortical erosion adjacent to the R hip abscess, which raises concern for osteomyelitis. Pt did have a bone scan on 11/01 which showed increased focal uptake at the R greater trochanter consistent with the fracture seen on prior XRs. The Bacteroides fragilis bacteremia remains unusual--it is typically GI bi, but pt denied abd pain, diarrhea. It did grow in only 1 of 4 bottles on admission, and cleared from 12/07 blood culture prior to initiation of metronidazole. Think less likely to be involved in the R hip PJI. I am concerned that antibiotics alone will be insufficient to treat pt's MSSA R hip PJI, however given concerns about surgical risks, will try medical management. Discussion ID reengaged on 12/19 given ongoing leukocytosis. Repeat CT R hip on 12/17/24 showed continued increase in the size of the fluid collection along the proximal R femur, now 6.9 x 4.2, c/f abscess; mild increase in rim-enhancing collection immediately lateral to R hip which is also c/f abscess and PJI; nondisplaced R femoral periprosthetic intertrochanteric fracture with associated lucency/erosion which may be c/f osteomyelitis. The patient underwent repeat IR drainage on 12/18/24 with Cx NGTD x1 day, and gram stain growing many GPCs. I discussed with hospitalist Dr. Carvalho on 12/19 and expressed significant concern that the patient has had progression of his infection despite maximal antibiotic therapy, and despite previous IR aspiration on 12/11. However, at this time, orthopedic surgery continues to decline surgical washout. Per prior ID discussions with ortho, pt is a poor surgical candidate, with uncemented hip replacement well ingrown and present for 20 years. Nevertheless remain very concerned that the patient does not have sufficient source control with IR aspiration alone and continues to have a high burden of infection in his R hip joint that will continue to progress, as it has already. However, at this time, per pt/family, ortho, and primary team, will continue IV abx for now, continue to defer surgery, and pt likely to discharge to rehab in the next day. In the absence of surgical washout, will continue IV cefazolin, for a minimum 6- week course, though suspect that the patient will continue to have have a progression of his known MSSA PJI without surgical source control. Following completion of 6 weeks of IV antibiotics, if having clinical improvement/stability, can transition to cefadroxil for indefinite/lifelong oral suppression Will hold off on rifampin, which has been studied in cases of Staph aureus PJI managed with DAIR. This pt has not undergone a DAIR procedure, and have high concern for lack of source control at this time. With high bioburden in the prosthetic joint without washout, could develop resistance to rifampin if added. Pt also with DDI between rifampin and home med diltiazem. Will therefore defer rifampin at this time, but could consider adding it in the future if pt does end up undergoing a DAIR procedure if antibiotics alone fail. Unclear etiology of Bacteroides fragilis bacteremia earlier in the h ospitalization, but unlikely to be involved in the R hip PJI, and the R hip abscess aspirate from 12/11 is only growing MSSA. Completed a 7-day course of metronidazole on 12/14/24. Recommendations: - Continue cefazolin 2 g IV q8h to complete a tentative 6-week course via PICC. Will extend antibiotic course for day 1 to be from the most recent abscess aspiration, from 12/18 - 01/28/25. - Remain highly concerned that there is a lack of source control at this time, and that the patient will continue to have progression of his infection in the absence of surgical washout. Ensure close follow-up with orthopedic surgery - Following completion of 6 weeks of IV antibiotics, if having clinical improvement/stability, can transition to cefadroxil 500 mg PO BID for indefinite/lifelong oral suppression - Will hold off on adding adjunctive rifampin at this time, given concern for lack of source control - Please see antibiotic discharge summary below for lab monitoring, ID follow- up, and OPAT details. The antibiotic discharge summary can be copied and pasted in the discharge summary for SNF reference - F/u 12/18 R hip aspirate Cx until finalized Outpatient Discharge summary, Discharging Physician please order the following on discharge: Diagnosis: MSSA R hip PJI Organism: MSSA Antibiotic (dose and frequency): cefazolin 2 g IV q8h Start of therapy: 12/18/24 End of therapy: 01/28/25 Labs should be faxed to: ID office, [facility] [phone] Labs needed and frequency: CBC w/ diff, CMP ESR, CRP, CK, vancomycin trough Please follow up with [facility] in outpatient clinic: Clinic Address [address] [place] [id number] Office (P) [phone] Appointment-time frame: ~4-5 weeks Plan discussed with primary team. Thank you for letting ID participate in the care of this patient. ID will sign off at this time. If questions, please contact the [facility] call center at [phone]. Brandy Ibrahim MD, MHS Infectious Diseases [facility] direct line: [phone] Admission and Anticipated Discharge Date Admission Date: December 05, 2024 Subjective This patient recommendation is based on a telemedicine consult request which was completed asynchronously through chart review and information provided by the primary physician. The patient was not seen or examined today. The evaluation is consultative in nature and all patient care and treatment decisions can either be accepted or rejected by the patient's primary hospital-based treating physician using their own independent medical judgment for their patient. PLEASE NOTE: E-consult was performed for this visit given lack of telepresenter availability. Time Spent Reviewing Chart: 31+ minutes PLEASE NOTE: E-consult was performed for this visit given lack of telepresenter availability. - 12/17/24 CT R hip showed continued increase in the size of the fluid collection along the proximal R femur, now 6.9 x 4.2, c/f abscess; mild increase in rim-enhancing collection immediately lateral to R hip which is also c/f abscess and PJI; nondisplaced R femoral periprosthetic intertrochanteric fracture with associated lucency/erosion which may be c/f osteomyelitis. - S/p repeat IR aspiration on 12/18 with Cx NGTD, g/s + many GPCs - Orthopedic surgery continues to decline taking pt for surgical washout Results & Data Vital Signs (Past 12 Hours) Vital Signs Temp Pulse Pulse Resp BP Pulse Ox O2 Del Method 12/19/24 15:55 36.9 C 79 18 125/82 90 Nasal Cannula 12/19/24 12:26 Nasal Cannula 12/19/24 10:36 36.5 C 62 19 109/64 90 Room Air 12/19/24 08:00 67 12/19/24 07:14 36.5 C 80 18 116/70 92 Nasal Cannula O2 Flow Rate 12/19/24 15:55 4 12/19/24 12:26 2 12/19/24 10:36 12/19/24 08:00 12/19/24 07:14 3 Laboratory Results Diagnostics: 12/17/24 CT R hip 1. Status post total right hip arthroplasty. Exam compromised given streak artifact from the hardware. 2. Redemonstration of a nondisplaced right femoral periprosthetic intertrochanteric fracture, likely subacute. Associated lucency/erosion of the posterior cortex of the proximal right femur which may be related to the fracture. However, osteomyelitis or osteolysis are within the differential. 3. Mild increase in size of an adjacent fluid collection along the posterior aspect of the right femur since prior CT, measuring 6.9 x 4.2 cm. This may represent an abscess. 4. Mild increase in size of a rim-enhancing fluid collection immediately lateral to the right hip which also may represent an abscess or joint effusion. Septic arthritis cannot be excluded. Micro Data: 12/18 R hip aspirate cx: NGTD; g/s with many GPCs 12/11 R hip aspirate cx: MSSA (S tetra, TMP/SMX) 12/09 BCx x2: NGTD 12/07 BCx x2: NG 12/05 UCx: NG 12/05 BCx x2: MSSA in 3/4 bottles, Bacteroides fragilis in 1/4 bottles Antibiotic Summary: Cefazolin 12/09 - present Metronidazole 12/08 12/14 Cefepime 12/05 - 12/09 Vanc 12/06 - 12/07 Azithro 12/05 - 12/07 (2) Pneumonia Laterality: unspecified laterality Lung location: unspecified part of lung Pneumonia type: due to unspecified organism Qualified Code(s): J18.9 - Pneumonia, unspecified organism
[2024-12-19] MEDS: FUROSEMIDE 40 MG/4 ML VIAL IV STA (18:30)
[2024-12-20 07:31] LABS: Hematocrit (blood only) 27.4 % (42.0-52.0); Hemoglobin 9.3 g/dl (14.0-18.0); Mean Corpuscular Hemoglobin 31.5 pg (25.0-34.0); Mean Corpuscular Volume 92.9 fL (80.0-100.0); Platelet Count 372 K/uL (130-400); RDW Standard Deviation 63.0 fL (36.4-46.3); Red Blood Count 2.95 M/uL (4.70-6.10); White Blood Count 14.94 K/ul (4.8-10.8)
[2024-12-20 07:58] LABS: Anion Gap 8.0 (3-11); Blood Urea Nitrogen 38.0 mg/dl (6-23); Calcium 9.0 mg/dl (8.6-10.3); Carbon Dioxide 27.0 mmol/L (21-32); Chloride 98.0 mmol/L (98-107); Creatinine Clr Calc Pharmacy 59.4 ml/min; Glucose 117.0 mg/dl (70-99(Fasting)); Potassium 5.1 mmol/L (3.5-5.1); Sodium 133.0 mmol/L (136-145)
--- NOTE | 2024-12-20 08:29 | Orthopedic Progress Note ---
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 Will continue to monitor. * At this time would continue antibiotic therapy per ID recommendations * Per discussion with Dr Beltran, patient is a poor surgical candidate and will require prolonged antibiotic therapy regardless of surgery, would continue to trial non-op care unless patient were to become septic. Given length of time since initial surgery, hardware removal may be prohibitively difficult. No formal OR washout planned at this time. * Patient updated to current plan of care * Weight bearing status: Activity as tolerated * Pain control * DVT prophylaxis per primary team * Disposition: Home/rehab * Ok for discharge from ortho standpoint * Scheduled for office f/u next week Subjective Active Problems: Bacteremia, R hip fluid collection, h/o JAMES 69 y/o male with bacteremia and right hip fluid collection consistent with PJI. Now s/p repeat IR aspiration yielding purulent fluid. Initial aspiration fluid analysis WBC >360k, gram stain (+), culture preliminary staph aureus. Patient reports improved pain of hip and thigh following procedure. Also with chronic R knee pain, no effusion. Per discussion with Dr Beltran, plan is for close monitoring on abx suppression. No changes from exam prior in admission. Review of Systems All systems reviewed & are unremarkable except as noted in HPI & below. Physical Exam * Musculoskeletal: Well healed surgical incision with no overlying erythema, skin breakdown, or wound drainage from surgical site. Otherwise no obvious deformity or overlying skin changes to the RLE. Mild diffuse TTP proximal thigh and hip region. Otherwise no specific tenderness of distal thigh, lower leg, foot/ankle. ROM hip flexion and IR/ER with minimal pain. AROM foot/ankle intact. Sensation intact plantar/dorsal foot. Brisk capillary refill. Results & Data Results & Data Laboratory Results . 12/18/24 13:05 Gram Stain - Final Hip,Right Aerobic and Anaerobic Culture - Preliminary No growth to date. 12/20/24 12/20/24 12/19/24 07:53 07:01 20:58 WBC 14.94 H RBC 2.95 L Hgb 9.3 L Hct 27.4 L MCV 92.9 MCH 31.5 MCHC 33.9 RDW Std Deviation 63.0 H RDW Coeff of Marce 18.6 H Plt Count 372 MPV 10.0 Sodium 133 L Potassium 5.1 Chloride 98 Carbon Dioxide 27 Anion Gap 8 BUN 38 H Creatinine 1.53 H Est Cr Clr Drug Dosing 59.4 eGFR 48.30 BUN/Creatinine Ratio 24.8 H Glucose 117 H POC Glucose 134 H 187 H Calcium 9.0 12/19/24 12/19/24 16:03 11:21 WBC RBC Hgb Hct MCV MCH MCHC RDW Std Deviation RDW Coeff of Marce Plt Count MPV Sodium Potassium Chloride Carbon Dioxide Anion Gap BUN Creatinine Est Cr Clr Drug Dosing eGFR BUN/Creatinine Ratio Glucose POC Glucose 168 H 164 H Calcium Diagnostic Findings . 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
[2024-12-20] MEDS ORDERED: FUROSEMIDE 80 MG TAB PO SCH (09:00)
[2024-12-20] MEDS ORDERED: FUROSEMIDE 40 MG/4 ML VIAL IV SCH (09:00)
[2024-12-20] MEDS: FUROSEMIDE 80 MG TAB PO SCH (10:02)
--- NOTE | 2024-12-20 16:20 | Hospitalist Progress Note ---
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 Also has had right sided hip pain for several months followed by [facility]. Ultimately confirmed to have MSSA bacteremia with source being his right hip fluid collection. #Staph aureus (MSSA) bacteremia + bacteroides fragilis #Right hip periprosthetic fracture and right hip infection -source - right hip -s/p IR drainage of right hip fluid 12/11 - culture with staph aureus (MSSA); no other pathogens isolated -repeat imaging of right hip 12/17 -original fluid collection now slightly larger at 6.9cm -there appears to be a small 2nd fluid collection now -s/p IR drainage again 12/18 - no growth to date despite gram stain positive -repeat blood cx's x 4 sets negative ensuring test of cure -STERLING w/o valvular vegetations -previously on cefepime (+ a few days of vancomycin) -then transitioned to IV cefazolin 12/09 -added metronidazole IV for bacteroides coverage 12/08 -completed 7 days of IV/PO metronidazole -- now discontinued -prior provider discussed with Dr Beltran from orthopedics multiple times -due to medical complexity and other factors, no plans for I/D or explantation of right hip hardware -Continue cefazolin 2 g IV q8h (day #1 - date of abscess aspiration; thus, from 12/18 - 01/28/25) -weekly CBC with diff, CMP, ESR, CRP while on cefazolin -Following completion of IV antibiotics transition to cefadroxil 500 mg PO BID for lifelong oral suppression -RUE PICC line in place #Nondisplaced right femoral periprosthetic intertrochanteric fracture WBAT #Acute respiratory failure with hypoxia / #Acute on chronic HFpEF -2nd to acute HFpEF and b/l lower lobe pneumonia -diuresis given for much of the stay; diuretics placed on hold when he became hypotensive and increased Cr -s/p course of IV antibiotic treatment for his pneumonia (7+ days more than adequate) -cxr repeated 12/12 - improved infiltrates, improved effusions -o2 weaned off 12/14, but back on since -Lasix resumed 12/15 but at half his usual dose, CXR 12/19 consistent with CHF, Lasix 40mg IV BID caused bump in Cr today therefore suspect he is close to his dry weight -Continue his usual Lasix 80mg PO daily with added spironolactone 25mg PO as advised by pulmonology previously -Strict I&Os, daily standing weights #Toe ulcers - -cont local wound care #BPH with urinary retention- -needed Watson early in the stay -removed 12/10 -by report there has been concern that duloxetine has been contributing to voiding issues and is on a tapering schedule -continue duloxetine tapering - now on q48h dosing -continue tamsulosin (new this admit) #Chronic atrial fibrillation/hypertension- -Continue Xarelto -cont metoprolol titrate and diltiazem (dose increased from 180mg to 240mg) -hold lisinopril -- BPs controlled w/o such #COPD - -no exacerbation at this time -Duonebs PRN -Continue Trelegy #Type 2 Diabetes mellitus- -Continue Jardiance -HbA1C 6.7 -Appreciate pharmacy glycemic consult -NovoLog SSI -BSGs controlled #Hyperlipidemia - -Continue atorvastatin #Neuropathy - -Is presently on tapering schedule of duloxetine due to concerns regarding exacerbation of urinary retention from such -lower duloxetine dose from 30mg to 20mg q48hr -do the 20mg every other day x 1 week then stop completely #Chronic gout - -Continue allopurinol -no flare at this time #AISHA - -cont BIPAP HS #CHLOE - -resolved, secondary to overdiuresis earlier in stay with lasix 80mg IV BID #hyponatremia - -mild VTE Prophylaxis - Xarelto Disposition - medically stable for discharge, rehab asking for WBC to continue to improve but given no plans on surgical treatment this would not change my management. I have asked to be called directly to discuss this as I am unclear what a rising WBC would interchange agent. He will be following up with orthopedics as an outpatient. Admission and Anticipated Discharge Date Admission Date: December 05, 2024 Subjective No shortness of breath. No acute changes or concerns. Awaiting placement at this time. Physical Exam Respiratory: normal respiratory effort; no respiratory distress Auscultation: lungs clear to auscultation bilaterally Cardiovascular: Rate/Rhythm: regular rate and + irregularly irregular Gastrointestinal (Abdomen): normal bowel sounds, soft, nontender, no hepatosplenomegaly Results & Data Results & Data Vital Signs (Past 12 Hours) Vital Signs Temp Pulse Resp BP Pulse Ox O2 Del Method O2 Flow Rate 12/20/24 15:03 108/60 12/20/24 14:58 36.9 C 76 16 87 L Nasal Cannula 4 12/20/24 07:19 36.6 C 90 16 118/82 92 Room Air PG Care Time/CCT Total # of Minutes Spent Total Time Spent with Patient: Total time spent is greater than 50% in coordination of care (as documented) at patient's floor/unit and/or counseling patient: Coding Level of Care Code 81043 SUB INP/OBS CARE 2/35MIN Diagnoses Staphylococcus aureus bacteremia R78.81; B95.61 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
[2024-12-21 07:41] LABS: Hematocrit (blood only) 24.7 % (42.0-52.0); Hemoglobin 8.5 g/dl (14.0-18.0); Mean Corpuscular Hemoglobin 31.7 pg (25.0-34.0); Mean Corpuscular Volume 92.2 fL (80.0-100.0); Platelet Count 344 K/uL (130-400); RDW Standard Deviation 62.1 fL (36.4-46.3); Red Blood Count 2.68 M/uL (4.70-6.10); White Blood Count 16.42 K/ul (4.8-10.8)
[2024-12-21 08:04] LABS: Anion Gap 6.0 (3-11); Blood Urea Nitrogen 42.0 mg/dl (6-23); Calcium 8.9 mg/dl (8.6-10.3); Carbon Dioxide 29.0 mmol/L (21-32); Chloride 95.0 mmol/L (98-107); Creatinine Clr Calc Pharmacy 50.4 ml/min; Glucose 124.0 mg/dl (70-99(Fasting)); Potassium 5.3 mmol/L (3.5-5.1); Sodium 130.0 mmol/L (136-145)
[2024-12-21 14:54] LABS: Anion Gap 6.0 (3-11); Blood Urea Nitrogen 45.0 mg/dl (6-23); Calcium 8.9 mg/dl (8.6-10.3); Carbon Dioxide 28.0 mmol/L (21-32); Chloride 94.0 mmol/L (98-107); Creatinine Clr Calc Pharmacy 45.6 ml/min; Glucose 144.0 mg/dl (70-99(Fasting)); Potassium 5.3 mmol/L (3.5-5.1); Sodium 128.0 mmol/L (136-145)
--- NOTE | 2024-12-21 16:40 | Hospitalist Progress Note ---
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 Also has had right sided hip pain for several months followed by [facility]. Ultimately confirmed to have MSSA bacteremia with source being his right hip fluid collection. #Staph aureus (MSSA) bacteremia + bacteroides fragilis #Right hip periprosthetic fracture and right hip infection -source - right hip -s/p IR drainage of right hip fluid 12/11 - culture with staph aureus (MSSA); no other pathogens isolated -repeat imaging of right hip 12/17 -original fluid collection now slightly larger at 6.9cm -there appears to be a small 2nd fluid collection now -s/p IR drainage again 12/18 - no growth to date despite gram stain positive -repeat blood cx's x 4 sets negative ensuring test of cure -STERLING w/o valvular vegetations -previously on cefepime (+ a few days of vancomycin) -then transitioned to IV cefazolin 12/09 -added metronidazole IV for bacteroides coverage 12/08 -completed 7 days of IV/PO metronidazole -- now discontinued -prior provider discussed with Dr Beltran from orthopedics multiple times -due to medical complexity and other factors, no plans for I/D or explantation of right hip hardware -Continue cefazolin 2 g IV q8h (day #1 - date of abscess aspiration; thus, from 12/18 - 01/28/25) -weekly CBC with diff, CMP, ESR, CRP while on cefazolin -Following completion of IV antibiotics transition to cefadroxil 500 mg PO BID for lifelong oral suppression -RUE PICC line in place #CHLOE / hyperkalemia -back in CHLOE after increased diuresis with Lasix 40mg IV x2 in addition to Lasix 40mg PO on , followed by 80mg PO yesterday (his usual home dose) and spironolactone -will place further lasix on hold and monitor Cr although unfortunately he got both of these already this morning, therefore will also give a dose of Lokelma #Nondisplaced right femoral periprosthetic intertrochanteric fracture WBAT #Acute respiratory failure with hypoxia / #Acute on chronic HFpEF -2nd to acute HFpEF and b/l lower lobe pneumonia -diuresis given for much of the stay; diuretics placed on hold when he became hypotensive and increased Cr -s/p course of IV antibiotic treatment for his pneumonia (7+ days more than adequate) -cxr repeated 12/12 - improved infiltrates, improved effusions -o2 weaned off 12/14, but back on since -Lasix resumed 12/15 but at half his usual dose, CXR 12/19 consistent with CHF with increased leg edema however trial of diuretics led to bump in Cr and hyperkalemia -Strict I&Os, daily standing weights -Unfortunately not been able to wean off oxygen and diuresis causing HCLOE, will get CT chest to better assess reason for continued hypoxia #Toe ulcers - -cont local wound care #BPH with urinary retention- -needed Watson early in the stay -removed 12/10 -by report there has been concern that duloxetine has been contributing to voiding issues and is on a tapering schedule -continue duloxetine tapering - now on q48h dosing -continue tamsulosin (new this admit) -PVR 12/21 negligible #Chronic atrial fibrillation/hypertension- -Continue Xarelto -cont metoprolol titrate and diltiazem (dose increased from 180mg to 240mg) -hold lisinopril -- BPs controlled w/o such #COPD - -no exacerbation at this time -Duonebs PRN -Continue Trelegy #Type 2 Diabetes mellitus- -Continue Jardiance -HbA1C 6.7 -Appreciate pharmacy glycemic consult -NovoLog SSI -BSGs controlled #Hyperlipidemia - -Continue atorvastatin #Neuropathy - -Is presently on tapering schedule of duloxetine due to concerns regarding exacerbation of urinary retention from such -lower duloxetine dose from 30mg to 20mg q48hr -do the 20mg every other day x 1 week then stop completely #Chronic gout - -Continue allopurinol -no flare at this time #AISHA - -cont BIPAP HS VTE Prophylaxis - Xarelto Disposition - medically stable for discharge once Cr starts to trend back down, potassium should improve just with holding spironolactone + one dose of Lokelma Admission and Anticipated Discharge Date Admission Date: December 05, 2024 Subjective Increased leg swelling. Having difficulty passing urine but negligible post void residual. No shortness of breath. Physical Exam Respiratory: normal respiratory effort; no respiratory distress Auscultation: lungs clear to auscultation bilaterally Cardiovascular: Rate/Rhythm: regular rate and + irregularly irregular Extremities: + pedal edema (2+ pitting to knees) Gastrointestinal (Abdomen): normal bowel sounds, soft, nontender, no hepatosplenomegaly Results & Data Results & Data Vital Signs (Past 12 Hours) Vital Signs Temp Pulse Resp BP BP Pulse Ox O2 Del Method 12/21/24 15:33 36.9 C 65 18 103/56 L 90 Nasal Cannula 12/21/24 09:12 36.9 C 68 18 98/62 L 94 Room Air 12/21/24 09:06 Nasal Cannula, CPAP O2 Flow Rate FiO2 12/21/24 15:33 2 12/21/24 09:12 12/21/24 09:06 2 PG Care Time/CCT Total # of Minutes Spent Total Time Spent with Patient: Total time spent is greater than 50% in coordination of care (as documented) at patient's floor/unit and/or counseling patient: Coding Level of Care Code 25261 SUB INP/OBS CARE 3/50MIN Diagnoses Staphylococcus aureus bacteremia R78.81; B95.61 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
[2024-12-21] MEDS: SODIUM ZIRCONIUM CYCLOSILICATE 10 GM PACKET PO ONE (17:07)
--- NOTE | 2024-12-22 05:35 | CT Scan Report ---
EXAM: CT chest diagnostic wo con CLINICAL HISTORY: ongoing hypoxia, ?loculated effusion CXR TECHNIQUE: Contiguous axial images were obtained from the neck base through the upper abdomen without contrast. In addition, sagittal and coronal reconstructions were performed to potentially increase the sensitivity for the detection of disease. The CT scan was performed according to ALARA (as low as reasonably achievable). 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 FINDINGS: Mild diffuse centrilobular emphysema is noted. Moderate right and mild left pleural effusions with basal subsegmental collapse of both lower lobes are seen. A patchy area of collapse consolidation is noted involving the right lower lobe. Diffuse smooth interlobular septal thickening is noted involving bilateral lungs, suggestive of pulmonary congestion. A small calcified granuloma is noted in the lingula. The central airways are patent. Evaluation of the mediastinum and jessica is limited due to the lack of intravenous contrast. Few subcentimeter-sized prevascular and paratracheal lymph nodes are seen. The thyroid is unremarkable. The heart, aorta, and pulmonary arteries are of normal size and configuration. There are coronary artery and aortic atherosclerotic calcifications. No pericardial effusion is identified. Imaged portions of the upper abdomen are unremarkable. No aggressive-appearing osseous lesions are identified. IMPRESSION: Mild diffuse centrilobular emphysema is noted. Stable. Moderate right and mild left pleural effusions with basal subsegmental collapse of both lower lobes are seen. Stable. A patchy area of collapse consolidation is noted involving the right lower lobe. Stable. Diffuse smooth interlobular septal thickening is noted involving bilateral lungs, suggestive of pulmonary congestion. New finding. A small calcified granuloma is noted in the lingula. Stable. No other new interval abnormality since prior study. Electronically signed by Troy Castillo 12-22-2024 05:35 AM
[2024-12-22 06:26] LABS: Hematocrit (blood only) 24.8 % (42.0-52.0); Hemoglobin 8.2 g/dl (14.0-18.0); Mean Corpuscular Hemoglobin 30.6 pg (25.0-34.0); Mean Corpuscular Volume 92.5 fL (80.0-100.0); Platelet Count 318 K/uL (130-400); RDW Standard Deviation 63.0 fL (36.4-46.3); Red Blood Count 2.68 M/uL (4.70-6.10); White Blood Count 14.22 K/ul (4.8-10.8)
[2024-12-22 07:04] LABS: Appearance Urine Turbid (Clear); Bacteria Urine Automated None Seen (None Seen); Epithelial Cell Urine Auto 0-2 /hpf (0-2); Glucose Urine UA Trace (Negative); RBC Urine Automated >20 /hpf (0-2); WBC Urine Automated >50 /hpf (0-5)
[2024-12-22 07:15] LABS: Anion Gap 9.0 (3-11); Blood Urea Nitrogen 52.0 mg/dl (6-23); Calcium 8.9 mg/dl (8.6-10.3); Carbon Dioxide 24.0 mmol/L (21-32); Creatinine Clr Calc Pharmacy 42.8 ml/min; Glucose 132.0 mg/dl (70-99(Fasting))
[2024-12-22 07:16] LABS: Chloride 94.0 mmol/L (98-107); Potassium 5.3 mmol/L (3.5-5.1); Sodium 127.0 mmol/L (136-145)
[2024-12-22] MEDS: SODIUM ZIRCONIUM CYCLOSILICATE 10 GM PACKET PO SCH (10:17)
--- NOTE | 2024-12-22 18:47 | Hospitalist Progress Note ---
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 Also has had right sided hip pain for several months followed by [facility]. Ultimately confirmed to have MSSA bacteremia with source being his right hip fluid collection. #Staph aureus (MSSA) bacteremia + bacteroides fragilis #Right hip periprosthetic fracture and right hip infection -source - right hip -s/p IR drainage of right hip fluid 12/11 - culture with staph aureus (MSSA); no other pathogens isolated -repeat imaging of right hip 12/17 -original fluid collection now slightly larger at 6.9cm -there appears to be a small 2nd fluid collection now -s/p IR drainage again 12/18 - no growth to date despite gram stain positive -repeat blood cx's x 4 sets negative ensuring test of cure -STERLING w/o valvular vegetations -previously on cefepime (+ a few days of vancomycin) -then transitioned to IV cefazolin 12/09 -added metronidazole IV for bacteroides coverage 12/08 -completed 7 days of IV/PO metronidazole -- now discontinued -prior provider discussed with Dr Beltran from orthopedics multiple times -due to medical complexity and other factors, no plans for I/D or explantation of right hip hardware -Continue cefazolin 2 g IV q8h (day #1 - date of abscess aspiration; thus, from 12/18 - 01/28/25) -weekly CBC with diff, CMP, ESR, CRP while on cefazolin -Following completion of IV antibiotics transition to cefadroxil 500 mg PO BID for lifelong oral suppression -RUE PICC line in place #CHLOE / hyperkalemia -back in CHLOE after increased diuresis with Lasix 40mg IV x2 in addition to Lasix 40mg PO on , followed by 80mg PO (his usual home dose) and spironolactone -1st day of holding Lasix and spironolactone today, hopefully Cr will have peaked and start to trend down tomorrow, suspect his pulmonary edema and peripheral edema may be more nutritional related #Skin breakdown (stage 2 pressure ulcer) over cyst on right buttocks No cellulitic changes, suspected breakdown from friction on bed, discussed dressing with nurse May need to consider aspiration on Tuesday if remains painful #Nondisplaced right femoral periprosthetic intertrochanteric fracture WBAT #Acute respiratory failure with hypoxia / #Acute on chronic HFpEF -2nd to acute HFpEF and b/l lower lobe pneumonia -diuresis given for much of the stay; diuretics placed on hold when he became hypotensive and increased Cr -s/p course of IV antibiotic treatment for his pneumonia (7+ days more than adequate) -cxr repeated 12/12 - improved infiltrates, improved effusions -o2 weaned off 12/14, but back on since -Lasix resumed 12/15 but at half his usual dose, CXR 12/19 consistent with CHF with increased leg edema however trial of diuretics led to bump in Cr and hyperkalemia -Strict I&Os, daily standing weights -CT chest confirmed pulmonary edema but Lasix and spironolactone suspected to be causing CHLOE thereofer #Toe ulcers - -cont local wound care #BPH with urinary retention- -needed Watson early in the stay -removed 12/10 -by report there has been concern that duloxetine has been contributing to voiding issues and is on a tapering schedule -continue duloxetine tapering - now on q48h dosing -continue tamsulosin (new this admit) -PVR 12/21 negligible #Chronic atrial fibrillation/hypertension- -Continue Xarelto -cont metoprolol titrate and diltiazem (dose increased from 180mg to 240mg) -hold lisinopril -- BPs controlled w/o such #COPD - -no exacerbation at this time -Duonebs PRN -Continue Trelegy #Type 2 Diabetes mellitus- -Continue Jardiance -HbA1C 6.7 -Appreciate pharmacy glycemic consult -NovoLog SSI -BSGs controlled #Hyperlipidemia - -Continue atorvastatin #Neuropathy - -Is presently on tapering schedule of duloxetine due to concerns regarding exacerbation of urinary retention from such -lower duloxetine dose from 30mg to 20mg q48hr -do the 20mg every other day x 1 week then stop completely #Chronic gout - -Continue allopurinol -no flare at this time #AISHA - -cont BIPAP HS VTE Prophylaxis - Xarelto Disposition - medically stable for discharge once Cr starts to trend back down and potassium Admission and Anticipated Discharge Date Admission Date: December 05, 2024 Subjective Ongoing leg swelling although improved with DAWNA hose. Discussed care with his daughter over the phone as he has been reporting pain over his buttocks area to her but not to me. Otherwise we discussed his rising Cr. Physical Exam Constitutional: WD/WN, vitals as above Respiratory: normal respiratory effort; no respiratory distress Auscultation: lungs clear to auscultation bilaterally and + diminished lung sounds (bibasal); no crackles and no rales Cardiovascular: Rate/Rhythm: regular rate and + irregularly irregular Heart Sounds: no murmur Extremities: normal capillary refill and + pedal edema (2+ pitting to knees); no calf tenderness Gastrointestinal (Abdomen): normal bowel sounds, soft, nontender, no hepatosplenomegaly Skin: stage 2 pressure ulcer over cyst on right buttocks Neurologic: moves all extremities and awake; not confused Psychiatric: A+Ox3, euthymic affect Results & Data Results & Data Vital Signs (Past 12 Hours) Vital Signs Temp Pulse Resp BP BP Pulse Ox O2 Del Method 12/22/24 15:00 94/56 L 95 Nasal Cannula 12/22/24 14:38 93 Nasal Cannula 12/22/24 14:30 36.4 C L 65 15 91/53 L 87/48 L 91 Nasal Cannula 12/22/24 08:07 36.3 C L 75 16 110/68 92 Nasal Cannula O2 Flow Rate 12/22/24 15:00 2 12/22/24 14:38 2 12/22/24 14:30 2 12/22/24 08:07 2 PG Care Time/CCT Total # of Minutes Spent Total Time Spent with Patient: Total time spent is greater than 50% in coordination of care (as documented) at patient's floor/unit and/or counseling patient: Coding Level of Care Code 62467 SUB INP/OBS CARE 2/35MIN Diagnoses Staphylococcus aureus bacteremia R78.81; B95.61 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
[2024-12-23 06:47] LABS: Hematocrit (blood only) 23.8 % (42.0-52.0); Hemoglobin 8.2 g/dl (14.0-18.0); Mean Corpuscular Hemoglobin 31.7 pg (25.0-34.0); Mean Corpuscular Volume 91.9 fL (80.0-100.0); Platelet Count 329 K/uL (130-400); RDW Standard Deviation 61.2 fL (36.4-46.3); Red Blood Count 2.59 M/uL (4.70-6.10); White Blood Count 10.88 K/ul (4.8-10.8)
[2024-12-23 07:08] LABS: Anion Gap 7.0 (3-11); Blood Urea Nitrogen 59.0 mg/dl (6-23); Calcium 8.9 mg/dl (8.6-10.3); Carbon Dioxide 28.0 mmol/L (21-32); Chloride 90.0 mmol/L (98-107); Creatinine Clr Calc Pharmacy 39.4 ml/min; Glucose 136.0 mg/dl (70-99(Fasting)); Potassium 5.2 mmol/L (3.5-5.1); Sodium 125.0 mmol/L (136-145)
[2024-12-23 08:24] LABS: Appearance Urine Turbid (Clear); Bacteria Urine Automated None Seen (None Seen); Epithelial Cell Urine Auto 0-2 /hpf (0-2); Glucose Urine UA Trace (Negative); RBC Urine Automated >20 /hpf (0-2); WBC Urine Automated >50 /hpf (0-5)
[2024-12-23] MEDS: SODIUM CHLORIDE 3 % 100 ML IV ONE ×2 (08:32→16:18)
[2024-12-23] MEDS: STOP ORDER ONE (08:44)
[2024-12-23 09:10] LABS: Protein Creatinine Ratio Urine 2.6 (0-0.2); Total Protein Urine Random 211.7 mg/dl (0-11.9)
[2024-12-23] MEDS: STAT IV/IM STA (09:19)
--- NOTE | 2024-12-23 09:51 | Ultrasound Report ---
RENAL ULTRASOUND HISTORY: CHLOE COMPARISON: CT of 12/09/2024 FINDINGS: Right kidney measures 11 x 5 cm. Left kidney measures 11 x 5 cm. There is no hydronephrosis bilaterally. There is a 3 cm cyst at the left kidney, stable. There is Doppler flow to both kidneys. No renal calculi seen. There is mild urinary bladder wall thickening which can be seen in the settin g of cystitis or chronic bladder outlet obstruction. IMPRESSION: No hydronephrosis. ACT 112: Negative or not required by law. Electronically signed by: Trevor Arteaga M.D. 12/23/2024 9:49 AM
[2024-12-23] MEDS: SODIUM ZIRCONIUM CYCLOSILICATE 10 GM PACKET PO SCH (11:29)
--- NOTE | 2024-12-23 12:09 | Nephrology Consultation ---
Date of Consultation December 23, 2024 Assessment & Plan (1) CHLOE (acute kidney injury): Non-oliguric. Baseline creatinine ~1.0-1.4 mg/dL with A2 albuminuria. Electrolytes notable for chronic hyponatremia and mild hyperkalemia. Volume status acceptable. There is no indication for ANALYTICS DEVELOPER at this time. Clinical history suggestive of hemodynamically/septic ATN in the setting of infection and relative hypotension. I cannot exclude infection related GN or AIN. Defer biopsy for definitive diagnosis pending additional monitoring. Update CBC with diff and C3/C4 with next blood work. Diuretics have been held. Some peripheral edema noted but volume status otherwise acceptable. Document strict I/O's and daily standing weights. UA with glucose and protein. Microscopy demonstrating >50 WBC, >20 RBC, and hyaline casts. No obstruction on US. PVR minimal. Medications are appropriately dosed for kidney function. Diuretics (furosemide + spironolactone), empagliflozin, metformin, and lisinopril have been held. If kidney dysfunction does not improve quickly, consider switching rivaroxaban to an alterative anticoagulant. Allopurinol should also be dose adjusted -- reduced from 300 mg twice daily to once daily today. (2) Hyponatremia: Chronic. Moderate. Asymptomatic. Hypervolemic. Hyponatremia attributed to CHLOE and decreased EAV. 100 ml 3% saline provided this AM. Diuretics held. Start free water restriction of 1.2 L/d. Follow up labs scheduled for this afternoon. (3) Hyperkalemia: Mild. Remains on Lokelma daily. Dietary potassium restriction ordered today. (4) Diastolic heart failure: Not currently in decompensated CHF. Diuretics have been held. Document strict I/O's and daily standing weights. Hold NADIRA and SGLT2i. (5) Bacteremia: Blood culture cleared 12/07. Remains on Cefazolin. (6) Prosthetic joint infection: (7) History of cor pulmonale: (8) Gout: (9) Chronic atrial fibrillation: History of Present Illness Reason for Consultation: CHLOE Requesting Physician: Indio Carvalho MD Attending Physician: Indio Carvalho MD History of Present Illness Mr. Madhu Fermin is a 69-year-old male with COPD, former smoker, AISHA, HFpEF, reported pulmonary hypertension (improvement with diuretics), permanent atrial fibrillation, DMII, hypertension, PMR, peripheral neuropathy, gout, and hyperlipidemia. Baseline creatinine is 1.0-1.4 mg/dL. Records indicate A2 proteinuria (~50-200 mcg/mg). Madhu presented to [facility] He presents to the emergency department December 05 with fevers, progressive shortness of breath, and right hip pain. He was admitted with pneumonia, COPD exacerbation, and acute on chronic HFpEF. Evaluation demonstrated MSSA and Bacteroides fragilis bacteremia with R hip prosthetic joint infection. Antibiotic initially with vancomycin and cefepime switched to cefazolin. Seven days of metronidazole completed. ID recommended continuing cefazolin through January 28. STERLING negative for vegetations. Hospital course was also complicated by some urinary retention. Watson removed on December 10. Madhu has been voiding without difficulty. Duloxetine has been weaned as potentially contributing to urinary retention. Recent PVR negligible. Madhu was reportedly clinically improving, though he has continued to require some supplemental oxygen via nasal cannula, breathing was improving. He was feeling well with plans to discharge to rehab. Discharge was reportedly canceled due to CHLOE. I discussed the patient's history with Dr. Carvalho this AM. Madhu was reportedly diuresing with furosemide 40 mg BID. He was switched to 40 mg PO on the and 80 mg daily + spironolactone on the . Creatinine was 1.3 mg/dL on the , 1.53 mg/dL on the , and 2.0 mg/dL on the . Creatinine has since trended upward slightly to 2.27 mg/dL. Electrolytes notable for mild hyperkalemia for which Lokelma is being provided daily and progressive chronic hyponatremia for which 100 ml of 3% saline was provided this AM. In addition to furosemide, spironolactone, empagliflozin, and lisinopril have been held. Madhu has had relative persistent hypotension but otherwise hemodynamically stable. Blood cultures cleared 12/07. Allergies Allergy/AdvReac Type Severity Reaction Status Date / Time dicyclomine [From Bentyl] Allergy Unknown CAN'T Verified 12/05/24 20:29 REMEMBER Home Medications Medication Instructions Recorded Confirmed Type albuterol sulfate 90 mcg/actuation 2 inh inhalation Q4H PRN shortness 03/18/23 12/05/24 Rx breath activated powder inhaler of breath or wheezing #1 ea oxygen #2 ea 04/28/23 10/26/24 Rx diltiazem HCl 180 mg 180 mg PO DAILY #90 caps 03/12/24 12/05/24 Rx capsule,extended release 24 hr empagliflozin 10 mg tablet 10 mg PO QAM #30 tabs 03/12/24 12/05/24 Rx (Jardiance) fluticasone fur. 100 mcg-umeclid 1 inh inhalation DAILY #60 ea 03/12/24 12/05/24 Rx 62.5 mcg-vilant 25 mcg inhalat.powder (Trelegy Ellipta) metformin 500 mg tablet 500 mg PO BID #180 tabs 03/12/24 12/05/24 Rx rivaroxaban 20 mg tablet (Xarelto) 20 mg PO DAILY #30 tabs 03/12/24 12/05/24 Rx allopurinol 300 mg tablet 300 mg PO BID #180 tabs 04/11/24 12/05/24 Rx atorvastatin 10 mg tablet 10 mg PO QPM #90 tabs 04/11/24 12/05/24 Rx furosemide 80 mg tablet 80 mg PO DAILY #180 tabs 04/11/24 12/05/24 Rx metoprolol tartrate 100 mg tablet 100 mg PO BID #180 tabs 04/11/24 12/05/24 Rx blood sugar diagnostic (OneTouch #100 ea 06/07/24 10/26/24 Rx Ultra Test strips) lancets #100 ea 06/07/24 10/26/24 Rx lisinopril 5 mg tablet 5 mg PO DAILY #90 tabs 06/07/24 12/05/24 Rx duloxetine 30 mg capsule,delayed 30 mg PO DAILY #30 caps 12/03/24 12/05/24 Rx release acetaminophen 500 mg tablet 1,000 mg PO TID PRN pain 12/05/24 12/05/24 History (Tylenol Extra Strength) Patient History Medical History (Updated 12/23/24 @ 13:09 by Titi Nicolas DO) History of cor pulmonale Other secondary pulmonary hypertension Echo/RHC 04/2023 Type II/III Follows with [facility]. Per visit 04/2023, "Predominantly he has pulmonary hypertension is postcapillary due to diastolic heart failure. Treatment of this syndrome is maintaining an adequate volume status." Lumbar spinal stenosis DJD (degenerative joint disease) Hx of diabetic foot ulcer Hx of left foot ulcer "resolved" per patient- no active infection/ulcer Monitored/following with [facility] foot care Venous insufficiency Osteoarthritis Diabetes Hyperlipidemia HTN (hypertension) Hx of gout History of COVID-19 (01/2023) Hospitalized x 3 days at [facility] AISHA (obstructive sleep apnea) BIPAP (compliant) Surgical History Hx of total knee replacement 10/11/23 History of lumbar fusion (2008) Hx of cardiac catheterization (04/26/23) RHC- Significantly elevated pulmonary capillary wedge pressure. Significantly elevated pulmonary arterial pressure and pulmonary vascular resistance. Significantly elevated right ventricular end-diastolic pressure and right atrial pressure. Recommend continue diuresis for volume overload. Additional recommendations regarding elevated pulmonary vascular resistance per pulmonary medicine team. H/O total hip arthroplasty Right History of vasectomy Family History Mother Coronary heart disease Hypertension Diabetes Denies family history of Ovarian cancer Prostate cancer Myocardial infarction Breast cancer Colorectal cancer Social History Smoking Status: Former smoker Tobacco Type: Cigarettes Age Started Using Tobacco: 10; Age Quit Using Tobacco: 48; packs per day: 2.5; Second Hand Exposure: Yes; Do You Dip or Chew Tobacco: No; Hx Alcohol Use: No Hx Substance Use: No Preferred Language: Wallisian Communication Ability: Effective Visual Impairment: No Limitations Balance Wheel Motion Inspector Required: No Beliefs That Will Affect Care: None marital status: Current Living Situation: Spouse Current Living Situation Comment: and brother in law current occupational status: disabled Feels Safe at Home: Yes Childhood Exposure to Second-Hand Smoke: Yes Diet: DASH caffeine: Yes Seatbelt Use: always Sunscreen Use: No Assistive Devices: Cane, Walker and Other Review of Systems Review of Systems: All systems reviewed & are unremarkable except as noted in HPI & below Constitutional: + weakness Ear, Nose, Mouth, Throat: + hearing loss Respiratory: no cough and no dyspnea Cardiovascular: + edema (stable L>R LE); no chest pain a nd no palpitations Genitourinary: no problem reported Physical Exam Constitutional: well developed; no acute distress Eyes: + anicteric sclerae; no conjunctival abn ormality ENMT: external ear and nose normal, oropharynx normal Neck: normal visual inspection and trachea midline Respiratory: normal respiratory effort; no respiratory distress Auscultati on: lungs clear to auscultation bilaterally and + diminished lung sounds Cardiovascular: Rate/Rhythm: + irregularly irregular Heart Sounds: normal S1 and normal S2; no murmur Vessels: + JVD (slightly increased) Extremities: + edema (+1 L>R pitting/dependent) Musculoskeletal: Extremities: no cyanosis and no clubbing Skin: normal turgor; no jaundice Neurologic: Motor/Sensory: no tremor and no asterixis Psychiatric: Orientation: alert and oriented x 3 Results & Data Vital Signs (Past 12 Hours) Vital Signs Temp Pulse Resp BP Pulse Ox O2 Del Method O2 Flow Rate 12/23/24 07:26 Nasal Cannula 2 12/23/24 07:20 36.7 C 81 18 114/67 92 Nasal Cannula 2 Laboratory Results Laboratory Results - last 24 hr 12/22/24 12/22/24 12/23/24 16:24 20:29 06:33 WBC 10.88 H RBC 2.59 L Hgb 8.2 L Hct 23.8 L MCV 91.9 MCH 31.7 MCHC 34.5 RDW Std Deviation 61.2 H RDW Coeff of Marce 18.3 H Plt Count 329 MPV 9.5 Sodium 125 L Potassium 5.2 H Chloride 90 L Carbon Dioxide 28 Anion Gap 7 BUN 59 H Creatinine 2.27 H Est Cr Clr Drug Dosing 39.4 eGFR 30.09 BUN/Creatinine Ratio 26.0 H Glucose 136 H POC Glucose 186 H 138 H Calcium 8.9 Urine Color Urine Appearance Urine pH Ur Specific [place] Urine Protein Urine Glucose (UA) Urine Ketones Urine Blood Urine Nitrite Urine Bilirubin Urine Urobilinogen Ur Leukocyte Esterase Urine WBC (Auto) Urine RBC (Auto) U Hyaline Cast (Auto) U Epithel Cells (Auto) Urine Bacteria (Auto) Hyaline Casts Granular Casts Urine Osmolality Ur Random Creatinine U Random Total Protein Protein/Creatinin Ratio Urine Sodium Urine Potassium Urine Chloride Urine Comment 12/23/24 12/23/24 12/23/24 07:50 07:50 07:50 WBC RBC Hgb Hct MCV MCH MCHC RDW Std Deviation RDW Coeff of Marce Plt Count MPV Sodium Potassium Chloride Carbon Dioxide Anion Gap BUN Creatinine Est Cr Clr Drug Dosing eGFR BUN/Creatinine Ratio Glucose POC Glucose Calcium Urine Color Yellow Urine Appearance Turbid A Urine pH 5.0 Ur Specific [place] 1.019 Urine Protein 3+ H Urine Glucose (UA) Trace H Urine Ketones Trace H Urine Blood 3+ H Urine Nitrite Negative Urine Bilirubin Negative Urine Urobilinogen Negative Ur Leukocyte Esterase 3+ H Urine WBC (Auto) >50 H Urine RBC (Auto) >20 H U Hyaline Cast (Auto) 6-10 H U Epithel Cells (Auto) 0-2 Urine Bacteria (Auto) None Seen Hyaline Casts Present A Granular Casts Present A Urine Osmolality 336 L Ur Random Creatinine Cancelled 83.0 U Random Total Protein 211.7 H Protein/Creatinin Ratio 2.6 H Urine Sodium 19 Cancelled Urine Potassium 52.9 Urine Chloride Urine Comment 12/23/24 12/23/24 12/23/24 07:50 07:50 07:53 WBC RBC Hgb Hct MCV MCH MCHC RDW Std Deviation RDW Coeff of Marce Plt Count MPV Sodium Potassium Chloride Carbon Dioxide Anion Gap BUN Creatinine Est Cr Clr Drug Dosing eGFR BUN/Creatinine Ratio Glucose POC Glucose 149 H Calcium Urine Color Urine Appearance Urine pH Ur Specific [place] Urine Protein Urine Glucose (UA) Urine Ketones Urine Blood Urine Nitrite Urine Bilirubin Urine Urobilinogen Ur Leukocyte Esterase Urine WBC (Auto) Urine RBC (Auto) U Hyaline Cast (Auto) U Epithel Cells (Auto) Urine Bacteria (Auto) Hyaline Casts Granular Casts Urine Osmolality Ur Random Creatinine U Random Total Protein Protein/Creatinin Ratio Urine Sodium Urine Potassium Cancelled Urine Chloride < 15 Cancelled Urine Comment 12/23/24 11:31 WBC RBC Hgb Hct MCV MCH MCHC RDW Std Deviation RDW Coeff of Marce Plt Count MPV Sodium Potassium Chloride Carbon Dioxide Anion Gap BUN Creatinine Est Cr Clr Drug Dosing eGFR BUN/Creatinine Ratio Glucose POC Glucose 155 H Calcium Urine Color Urine Appearance Urine pH Ur Specific [place] Urine Protein Urine Glucose (UA) Urine Ketones Urine Blood Urine Nitrite Urine Bilirubin Urine Urobilinogen Ur Leukocyte Esterase Urine WBC (Auto) Urine RBC (Auto) U Hyaline Cast (Auto) U Epithel Cells (Auto) Urine Bacteria (Auto) Hyaline Casts Granular Casts Urine Osmolality Ur Random Creatinine U Random Total Protein Protein/Creatinin Ratio Urine Sodium Urine Potassium Urine Chloride Urine Comment Diagnostic Findings RENAL ULTRASOUND COMPARISON: CT of 12/09/2024 FINDINGS: Right kidney measures 11 x 5 cm. Left kidney measures 11 x 5 cm. There is no hydronephrosis bilaterally. There is a 3 cm cyst at the left kidney, stable. There is Doppler flow to both kidneys. No renal calculi seen. There is mild urinary bladder wall thickening which can be seen in the setting of cystitis or chronic bladder outlet obstruction. IMPRESSION: No hydronephrosis. CT chest: COMPARISON: 19:49:32 DISPLAY MECHANIC. FINDINGS: Mild diffuse centrilobular emphysema is noted. Moderate right and mild left pleural effusions with basal subsegmental collapse of both lower lobes are seen. A patchy area of collapse consolidation is noted involving the right lower lobe. Diffuse smooth interlobular septal thickening is noted involving bilateral lungs, suggestive of pulmonary congestion. A small calcified granuloma is noted in the lingula. The central airways are patent. Evaluation of the mediastinum and jessica is limited due to the lack of intravenous contrast. Few subcentimeter-sized prevascular and paratracheal lymph nodes are seen. The thyroid is unremarkable. The heart, aorta, and pulmonary arteries are of normal size and configuration. There are coronary artery and aortic atherosclerotic calcifications. No pericardial effusion is identified. Imaged portions of the upper abdomen are unremarkable. No aggressive-appearing osseous lesions are identified. IMPRESSION: Mild diffuse centrilobular emphysema is noted. Stable. Moderate right and mild left pleural effusions with basal subsegmental collapse of both lower lobes are seen. Stable. A patchy area of collapse consolidation is noted involving the right lower lobe. Stable. Diffuse smooth interlobular septal thickening is noted involving bilateral lungs, suggestive of pulmonary congestion. New finding. A small calcified granuloma is noted in the lingula. Stable. No other new interval abnormality since prior study. PG Care Time/CCT Total # of Minutes Spent Total Time Spent with Patient: Total time spent is greater than 50% in coordination of care (as documented) at patient's floor/unit and/or counseling patient: Coding Level of Care Code 98386 IN/OBS CONSULT LVL 5,80M Diagnoses CHLOE (acute kidney injury) N17.9 Hyponatremia E87.1 Hyperkalemia E87.5 Chronic diastolic heart failure I50.32 Heart failure chronicity: chronic Bacteremia R78.81 Prosthetic joint infection T84.50XA History of cor pulmonale Z86.79 Gout M10.9 Chronic atrial fibrillation I48.20 (4) Diastolic heart failure Heart failure chronicity: chronic Qualified Code(s): I50.32 - Chronic diastolic (congestive) heart failure
[2024-12-23 14:34] LABS: Anion Gap 8.0 (3-11); Blood Urea Nitrogen 59.0 mg/dl (6-23); Calcium 8.5 mg/dl (8.6-10.3); Carbon Dioxide 25.0 mmol/L (21-32); Chloride 92.0 mmol/L (98-107); Creatinine Clr Calc Pharmacy 38.1 ml/min; Glucose 170.0 mg/dl (70-99(Fasting)); Potassium 4.6 mmol/L (3.5-5.1); Sodium 125.0 mmol/L (136-145)
[2024-12-23] MEDS ORDERED: STAT IV/IM STA (15:56)
[2024-12-24 06:31] LABS: Hematocrit (blood only) 24.6 % (42.0-52.0); Hemoglobin 8.6 g/dl (14.0-18.0); Immature Granulocytes # (auto) 0.05 K/uL (0.01-0.20); Immature Granulocytes % (auto) 0.5 %; Mean Corpuscular Hemoglobin 32.0 pg (25.0-34.0); Mean Corpuscular Volume 91.4 fL (80.0-100.0); Platelet Count 332 K/uL (130-400); RDW Standard Deviation 59.7 fL (36.4-46.3); Red Blood Count 2.69 M/uL (4.70-6.10); White Blood Count 9.32 K/ul (4.8-10.8)
[2024-12-24 06:58] LABS: Anion Gap 7 (3-11); Blood Urea Nitrogen 59 mg/dl (6-23); Calcium 8.7 mg/dl (8.6-10.3); Carbon Dioxide 26 mmol/L (21-32); Chloride 93 mmol/L (98-107); Creatinine Clr Calc Pharmacy 41.1 ml/min; Glucose 160 mg/dl (70-99(Fasting)); Potassium 4.4 mmol/L (3.5-5.1); Sodium 126 mmol/L (136-145)
[2024-12-24] MEDS ORDERED: STAT IV/IM STA (07:02)
--- NOTE | 2024-12-24 07:04 | Hospitalist Progress Note ---
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 Also has had right sided hip pain for several months followed by [facility]. Ultimately confirmed to have MSSA bacteremia with source being his right hip fluid collection. #Staph aureus (MSSA) bacteremia + bacteroides fragilis #Right hip periprosthetic fracture and right hip infection -source - right hip -s/p IR drainage of right hip fluid 12/11 - culture with staph aureus (MSSA); no other pathogens isolated -repeat imaging of right hip 12/17 -original fluid collection now slightly larger at 6.9cm -there appears to be a small 2nd fluid collection now -s/p IR drainage again 12/18 - no growth to date despite gram stain positive -repeat blood cx's x 4 sets negative ensuring test of cure -STERLING w/o valvular vegetations -previously on cefepime (+ a few days of vancomycin) -then transitioned to IV cefazolin 12/09 -added metronidazole IV for bacteroides coverage 12/08 -completed 7 days of IV/PO metronidazole -- now discontinued -prior provider discussed with Dr Beltran from orthopedics multiple times -due to medical complexity and other factors, no plans for I/D or explantation of right hip hardware -Continue cefazolin 2 g IV q8h (day #1 - date of abscess aspiration; thus, from 12/18 - 01/28/25) -weekly CBC with diff, CMP, ESR, CRP while on cefazolin -Following completion of IV antibiotics transition to cefadroxil 500 mg PO BID for lifelong oral suppression -RUE PICC line in place #CHLOE / hyperkalemia / hyponatremia -back in CHLOE after increased diuresis with Lasix 40mg IV x2 in addition to Lasix 40mg PO on , followed by 80mg PO (his usual home dose) and spironolactone -Suspect still hemodynamic compromise with diuretics. Continue to hold diuretics however given increase is not slowing down will get UA / electrolytes, renal US and consult nephrology #Skin breakdown (stage 2 pressure ulcer) over cyst on right buttocks No cellulitic changes, suspected breakdown from friction on bed, discussed dressing with nurse May need to consider aspiration on Tuesday if remains painful #Nondisplaced right femoral periprosthetic intertrochanteric fracture WBAT #Acute respiratory failure with hypoxia / #Acute on chronic HFpEF -2nd to acute HFpEF and b/l lower lobe pneumonia -diuresis given for much of the stay; diuretics placed on hold when he became hypotensive and increased Cr -s/p course of IV antibiotic treatment for his pneumonia (7+ days more than adequate) -cxr repeated 12/12 - improved infiltrates, improved effusions -o2 weaned off 12/14, but back on since -Lasix resumed 12/15 but at half his usual dose, CXR 12/19 consistent with CHF with increased leg edema however trial of diuretics led to bump in Cr and hyperkalemia -Strict I&Os, daily standing weights -CT chest confirmed pulmonary edema but Lasix and spironolactone suspected to be causing CHLOE therefore none further given #Toe ulcers - -cont local wound care #BPH with urinary retention- -needed Watson early in the stay -removed 12/10 -by report there has been concern that duloxetine has been contributing to voiding issues and is on a tapering schedule -continue duloxetine tapering - now on q48h dosing -continue tamsulosin (new this admit) -PVR 12/21 negligible #Chronic atrial fibrillation/hypertension- -Continue Xarelto -cont metoprolol titrate and diltiazem (dose increased from 180mg to 240mg) -hold lisinopril -- BPs controlled w/o such #COPD - -no exacerbation at this time -Duonebs PRN -Continue Trelegy #Type 2 Diabetes mellitus- -Continue Jardiance -HbA1C 6.7 -Appreciate pharmacy glycemic consult -NovoLog SSI -BSGs controlled #Hyperlipidemia - -Continue atorvastatin #Neuropathy - -Is presently on tapering schedule of duloxetine due to concerns regarding exacerbation of urinary retention from such -lower duloxetine dose from 30mg to 20mg q48hr -do the 20mg every other day x 1 week then stop completely #Chronic gout - -Continue allopurinol -no flare at this time #AISHA - -cont BIPAP HS VTE Prophylaxis - Xarelto Disposition - medically stable for discharge once Cr starts to trend back down and potassium/sodium stable Admission and Anticipated Discharge Date Admission Date: December 05, 2024 Subjective No acute change in leg swelling or shortness of breath Physical Exam Constitutional: WD/WN, vitals as above Respiratory: normal respiratory effort; no respiratory distress Auscultation: lungs clear to auscultation bilaterally and + diminished lung sounds (bibasal); no crackles and no rales Cardiovascular: Rate/Rhythm: regular rate and + irregularly irregular Heart Sounds: no murmur Extremities: normal capillary refill and + pedal edema (2+ pitting to knees); no calf tenderness Gastrointestinal (Abdomen): normal bowel sounds, soft, nontender, no hepatosplenomegaly Neurologic: moves all extremities and awake; not confused Psychiatric: A+Ox3, euthymic affect Results & Data Results & Data Vital Signs (Past 12 Hours) Vital Signs Temp Pulse Resp BP Pulse Ox O2 Del Method O2 Flow Rate 12/24/24 06:02 36.3 C L 65 20 116/74 91 Nasal Cannula 2 12/23/24 23:58 36.7 C 62 18 120/66 96 CPAP 12/23/24 20:38 36.6 C 67 20 114/54 L 91 Oxymask 2 12/23/24 20:10 Nasal Cannula 2 PG Care Time/CCT Total # of Minutes Spent Total Time Spent with Patient: Total time spent is greater than 50% in coordination of care (as documented) at patient's floor/unit and/or counseling patient: Coding Level of Care Code 86613 SUB INP/OBS CARE 2/35MIN Diagnoses Staphylococcus aureus bacteremia R78.81; B95.61 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
[2024-12-24 07:05] LABS: Alanine Aminotransferase < 3 U/L (7-52); Albumin Globulin Ratio 0.8 (0.9-2); Albumin Level 2.6 gm/dl (3.4-5.0); Alkaline Phosphatase 122 U/L (34-104); Bilirubin,Total 0.5 mg/dl (0.2-1.0); Globulin 3.2 gm/dl (2.5-4.0); Total Protein 5.8 gm/dl (6.0-8.3)
[2024-12-24] MEDS: SODIUM CHLORIDE 3 % 100 ML IV ONE (08:01)
[2024-12-24] MEDS: RIVAROXABAN 15 MG TAB PO SCH (08:04)
[2024-12-24 08:12] VITALS: RESP 18
[2024-12-24] MEDS: LANTUS PER UNIT CHARGE SQ SCH (08:57)
--- NOTE | 2024-12-24 12:19 | Nephrology Progress Note ---
Date of Service December 24, 2024 Assessment & Plan (1) CHLOE (acute kidney injury): Plan: Non-oliguric. Baseline creatinine ~1.0-1.4 mg/dL with A2 albuminuria. Electrolytes notable for chronic hyponatremia and mild hyperkalemia. Volume status acceptable. 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 Creatinine stable this AM. Clinical history suggestive of hemodynamically/septic ATN in the setting of infection and relative hypotension. I cannot exclude infection related GN or AIN. Microscopy demonstrating >50 WBC, >20 RBC, and hyaline casts. Defer biopsy for definitive diagnosis pending additional monitoring. Kidney function appears to be starting to improve. C3/C4 pending. Document strict I/O's and daily standing weights. Goal remains to encourage relatively even or slightly positive fluid balance. No obstruction on US. PVR minimal. Medications are appropriately dosed for kidney function. Diuretics (furosemide + spironolactone), empagliflozin, metformin, and lisinopril have been held. Some peripheral edema noted but volume status otherwise acceptable. Allopurinol should also be dose adjusted -- reduced from 300 mg twice daily to once daily. Rivaroxaban 20 --> 15 mg. (2) Hyponatremia: Plan: Chronic. Moderate. Asymptomatic. Hypervolemic. Hyponatremia attributed to CHLOE and decreased EAV. Diuretics held. Free water restriction of 1.2 L/d. Repeat labs tomorrow AM. (3) Hyperkalemia: Plan: Mild. Lokelma stopped. Dietary potassium restriction continued. (4) Diastolic heart failure: Plan: Not currently in decompensated CHF. Diuretics have been held. Document strict I/O's and daily standing weights. Hold NADIRA and SGLT2i. (5) Bacteremia: Plan: Blood culture cleared 12/07. Plan has been to continue cefazolin through January 28. (6) Prosthetic joint infection: (7) History of cor pulmonale: (8) Gout: (9) Chronic atrial fibrillation: Admission and Anticipated Discharge Date Admission Date: December 05, 2024 Subjective No acute events overnight. Madhu was out of bed to chair this AM. He feels well. He is breathing comfortably. Some stable BL LE edema noted. Otherwise, no complaints. Review of Systems Review of Systems: All systems reviewed & are unremarkable except as noted in HPI & below Physical Exam Constitutional: well developed; no acute distress Eyes: + anicteric sclerae; no conjunctival abn ormality ENMT: external ear and nose normal, oropharynx normal Neck: normal visual inspection and trachea midline Respiratory: normal respiratory effort; no respiratory distress Auscultation: lungs clear to auscultation bilaterally Cardiovascular: Rate/Rhythm: + irregularly irregular Heart Sounds: normal S1 and normal S2; no murmur Extremities: + edema (+1 L>R pitting/dependent) Musculoskeletal: Extremities: no cyanosis and no clubbing Skin: normal turgor; no jaundice Neurologic: Motor/Sensory: no tremor and no asterixis Psychiatric: Orientation: alert and oriented x 3 Results & Data Vital Signs (Past 12 Hours) Vital Signs Temp Pulse Pulse Resp BP Pulse Ox O2 Del Method 12/24/24 07:43 36.3 C L 66 18 127/65 88 L Nasal Cannula 12/24/24 06:02 36.3 C L 65 20 116/74 91 Nasal Cannula O2 Flow Rate 12/24/24 07:43 2 12/24/24 06:02 2 Laboratory Results Laboratory Results - last 24 hr 12/23/24 12/23/24 12/23/24 14:03 16:37 20:30 WBC RBC Hgb Hct MCV MCH MCHC RDW Std Deviation RDW Coeff of Marce Plt Count MPV Immature Gran % (Auto) Neut % (Auto) Lymph % (Auto) [place] % (Auto) Eos % (Auto) Baso % (Auto) Neut # (Auto) Lymph # (Auto) [place] # (Auto) Eos # (Auto) Baso # (Auto) Immature Gran # (Auto) Sodium 125 L Potassium 4.6 Chloride 92 L Carbon Dioxide 25 Anion Gap 8 BUN 59 H Creatinine 2.35 H Est Cr Clr Drug Dosing 38.1 eGFR 28.86 BUN/Creatinine Ratio 25.1 H Glucose 170 H POC Glucose 193 H 159 H Calcium 8.5 L Total Bilirubin AST ALT Alkaline Phosphatase Total Protein Albumin Globulin Albumin/Globulin Ratio Complement C3 Complement C4 Tot Complement (CH50) 12/24/24 12/24/24 12/24/24 06:07 07:40 11:26 WBC 9.32 RBC 2.69 L Hgb 8.6 L Hct 24.6 L MCV 91.4 MCH 32.0 MCHC 35.0 RDW Std Deviation 59.7 H RDW Coeff of Marce 18.0 H Plt Count 332 MPV 9.8 Immature Gran % (Auto) 0.5 Neut % (Auto) 80.1 Lymph % (Auto) 6.0 [place] % (Auto) 11.4 Eos % (Auto) 1.2 Baso % (Auto) 0.8 Neut # (Auto) 7.47 H Lymph # (Auto) 0.56 L [place] # (Auto) 1.06 H Eos # (Auto) 0.11 Baso # (Auto) 0.07 Immature Gran # (Auto) 0.05 Sodium 126 L Potassium 4.4 Chloride 93 L Carbon Dioxide 26 Anion Gap 7 BUN 59 H Creatinine 2.18 H Est Cr Clr Drug Dosing 41.1 eGFR 31.58 BUN/Creatinine Ratio 27.1 H Glucose 160 H POC Glucose 172 H 149 H Calcium 8.7 Total Bilirubin 0.5 AST 36 ALT < 3 L Alkaline Phosphatase 122 H Total Protein 5.8 L Albumin 2.6 L Globulin 3.2 Albumin/Globulin Ratio 0.8 L Complement C3 Pending Complement C4 Pending Tot Complement (CH50) Pending PG Care Time/CCT Total # of Minutes Spent Total Time Spent with Patient: Total time spent is greater than 50% in coordination of care (as documented) at patient's floor/unit and/or counseling patient: Coding Level of Care Code 84999 SUB INP/OBS CARE 3/50MIN Diagnoses CHLOE (acute kidney injury) N17.9 Hyponatremia E87.1 Hyperkalemia E87.5 Chronic diastolic heart failure I50.32 Heart failure chronicity: chronic Bacteremia R78.81 Prosthetic joint infection T84.50XA History of cor pulmonale Z86.79 Gout M10.9 Chronic atrial fibrillation I48.20 (4) Diastolic heart failure Heart failure chronicity: chronic Qualified Code(s): I50.32 - Chronic diastolic (congestive) heart failure
--- NOTE | 2024-12-24 19:03 | Hospitalist Progress Note ---
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 Also has had right sided hip pain for several months followed by [facility]. Ultimately confirmed to have MSSA bacteremia with source being his right hip fluid collection. #Staph aureus (MSSA) bacteremia + bacteroides fragilis #Right hip periprosthetic fracture and right hip infection -source - right hip -s/p IR drainage of right hip fluid 12/11 - culture with staph aureus (MSSA); no other pathogens isolated -repeat imaging of right hip 12/17 -original fluid collection now slightly larger at 6.9cm -there appears to be a small 2nd fluid collection now -s/p IR drainage again 12/18 - no growth to date despite gram stain positive -repeat blood cx's x 4 sets negative ensuring test of cure -STERLING w/o valvular vegetations -previously on cefepime (+ a few days of vancomycin) -then transitioned to IV cefazolin 12/09 -added metronidazole IV for bacteroides coverage 12/08 -completed 7 days of IV/PO metronidazole -- now discontinued -prior provider discussed with Dr Beltran from orthopedics multiple times -due to medical complexity and other factors, no plans for I/D or explantation of right hip hardware -Continue cefazolin 2 g IV q8h (day #1 - date of abscess aspiration; thus, from 12/18 - 01/28/25) -weekly CBC with diff, CMP, ESR, CRP while on cefazolin -Following completion of IV antibiotics transition to cefadroxil 500 mg PO BID for lifelong oral suppression -RUE PICC line in place #CHLOE / hyperkalemia / hyponatremia -back in CHLOE after increased diuresis with Lasix 40mg IV x2 in addition to Lasix 40mg PO on , followed by 80mg PO (his usual home dose) and spironolactone -Suspect still hemodynamic compromise with diuretics. Starting to improve today. Lokelma discontinued -Appreicate nephrology consultation #Skin breakdown (stage 2 pressure ulcer) over cyst on right buttocks No cellulitic changes, suspected breakdown from friction on bed, discussed dressing with nurse May need to consider aspiration on Tuesday if remains painful #Nondisplaced right femoral periprosthetic intertrochanteric fracture WBAT #Acute respiratory failure with hypoxia / #Acute on chronic HFpEF -2nd to acute HFpEF and b/l lower lobe pneumonia -diuresis given for much of the stay; diuretics placed on hold when he became hypotensive and increased Cr -s/p course of IV antibiotic treatment for his pneumonia (7+ days more than adequate) -cxr repeated 12/12 - improved infiltrates, improved effusions -o2 weaned off 12/14, but back on since -Lasix resumed 12/15 but at half his usual dose, CXR 12/19 consistent with CHF with increased leg edema however trial of diuretics led to bump in Cr and hyperkalemia -Strict I&Os, daily standing weights -CT chest confirmed pulmonary edema but Lasix and spironolactone suspected to be causing CHLOE therefore none further given #Toe ulcers - -cont local wound care #BPH with urinary retention- -needed Watson early in the stay -removed 12/10 -by report there has been concern that duloxetine has been contributing to voiding issues and is on a tapering schedule -continue duloxetine tapering - now on q48h dosing -continue tamsulosin (new this admit) -PVR 12/21 negligible #Chronic atrial fibrillation/hypertension- -Continue Xarelto -cont metoprolol titrate and diltiazem (dose increased from 180mg to 240mg) -hold lisinopril -- BPs controlled w/o such #COPD - -no exacerbation at this time -Duonebs PRN -Continue Trelegy #Type 2 Diabetes mellitus- -Stopped Jardiance due to CHLOE -HbA1C 6.7 -NovoLog SSI, added lantus but glucose 92 therefore will reduce to 5 units daily -BSGs controlled #Hyperlipidemia - -Continue atorvastatin #Neuropathy - -Is presently on tapering schedule of duloxetine due to concerns regarding exacerbation of urinary retention from such -lStop duloxetine #Chronic gout - -Continue allopurinol (renally dosed) -no flare at this time #AISHA - -cont BIPAP HS VTE Prophylaxis - Xarelto (renally dosed) Disposition - medically stable for discharge once Cr starts to significantly trend back down and potassium/sodium stable Admission and Anticipated Discharge Date Admission Date: December 05, 2024 Subjective No acute change in symptoms. Felling generally well but still requiring 2LPM O2 Physical Exam Constitutional: well developed; no acute distress Respiratory: normal respiratory effort; no respiratory distress Auscultation: lungs clear to auscultation bilaterally Cardiovascular: Rate/Rhythm: regular rate and + irregularly irregular Heart Sounds: no murmur Extremities: + pedal edema (1+ pitting b/l equal) Neurologic: moves all extremities and awake; not confused Psychiatric: Orientation: alert and oriented x 3 Results & Data Results & Data Vital Signs (Past 12 Hours) Vital Signs Temp Pulse Pulse Resp BP Pulse Ox O2 Del Method 12/24/24 15:12 36.2 C L 55 L 18 92/51 L 89 L Nasal Cannula 12/24/24 07:43 36.3 C L 66 18 127/65 88 L Nasal Cannula O2 Flow Rate 12/24/24 15:12 2 12/24/24 07:43 2 PG Care Time/CCT Total # of Minutes Spent Total Time Spent with Patient: Total time spent is greater than 50% in coordination of care (as documented) at patient's floor/unit and/or counseling patient: Coding Level of Care Code 81707 SUB INP/OBS CARE 2/35MIN Diagnoses Staphylococcus aureus bacteremia R78.81; B95.61 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
[2024-12-24 23:49] VITALS: O2SAT 91
[2024-12-25 07:06] LABS: Anion Gap 8.0 (3-11); Blood Urea Nitrogen 63.0 mg/dl (6-23); Calcium 8.8 mg/dl (8.6-10.3); Carbon Dioxide 26.0 mmol/L (21-32); Chloride 94.0 mmol/L (98-107); Creatinine Clr Calc Pharmacy 44.1 ml/min; Glucose 128.0 mg/dl (70-99(Fasting)); Potassium 4.5 mmol/L (3.5-5.1); Sodium 128.0 mmol/L (136-145)
[2024-12-25 07:10] VITALS: BP 113/75; TEMP 97.2
[2024-12-25] MEDS: LANTUS PER UNIT CHARGE SQ SCH (09:00)
--- NOTE | 2024-12-25 10:18 | Nephrology Progress Note ---
Date of Service December 25, 2024 Assessment & Plan (1) CHLOE (acute kidney injury): Plan: Non-oliguric. Baseline creatinine ~1.0-1.4 mg/dL with A2 albuminuria. Electrolytes notable for chronic hyponatremia and mild hyperkalemia. Volume status acceptable. 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 Creatinine slightly improved 2.2 --> 2.0 mg/dL. Slow downward trend appreciated. Clinical history suggestive of hemodynamically/septic ATN in the setting of infection and relative hypotension. Appears to be in recovery phase. No obstruction on US. PVR minimal. Medications are appropriately dosed for kidney function. Diuretics (furosemide + spironolactone), empagliflozin, metformin, and lisinopril have been held. I would continue to hold these medications pending additional monitoring and follow up. Allopurinol has been adjusted -- reduced from 300 mg twice daily to once daily. Rivaroxaban 20 --> 15 mg. (2) Hyponatremia: Plan: Hyponatremia attributed to CHLOE and decreased EAV. Diuretics held. Free water restriction of 1.2 L/d. Sodium improving with improvement in EAV and kidney function. (3) Diastolic heart failure: Plan: Not currently in decompensated CHF. Diuretics have been held. Document strict I/O's and daily standing weights. Hold NADIRA and SGLT2i. (4) Bacteremia: Plan: Blood culture cleared 12/07. Plan has been to continue cefazolin through January 28. (5) Prosthetic joint infection: (6) History of cor pulmonale: (7) Gout: (8) Chronic atrial fibrillation: Admission and Anticipated Discharge Date Admission Date: December 05, 2024 Subjective No acute events overnight. Madhu feels well this AM. He was out of bed walking with assistance this AM. He is breathing comfortably. He feels that LE edema has improved. Appetite is good. I discussed the plan of care with Dr. Carvalho this AM. Planning discharge for later today. Review of Systems Review of Systems: All systems reviewed & are unremarkable except as noted in HPI & below Physical Exam Constitutional: well developed; no acute distress Eyes: + anicteric sclerae ENMT: external ear and nose normal, oropharynx normal Neck: normal visual inspection and trachea midline Respiratory: normal respiratory effort; no respiratory distress Au scultation: lungs clear to auscultation bilaterally and + diminished lung sounds Cardiovascular: Rate/Rhythm: regular rate Heart Sounds: normal S1 and normal S2 Extremities: + edema (+1 L>R pitting/dependent) Musculoskeletal: Extremities: no cyanosis and no clubbing Skin: normal turgor; no jaundice Neurologic: Motor/Sensory: no tremor and no asterixis Psychiatric: Orientation: alert and oriented x 3 Results & Data Vital Signs (Past 12 Hours) Vital Signs Temp Pulse Resp BP Pulse Ox O2 Del Method O2 Flow Rate 12/25/24 09:12 Room Air 12/25/24 07:06 36.2 C L 87 18 113/75 12/24/24 23:24 36.5 C 64 18 115/66 91 Nasal Cannula 2 Laboratory Results Laboratory Results - last 24 hr 12/24/24 12/24/24 12/24/24 11:26 16:27 20:46 Sodium Potassium Chloride Carbon Dioxide Anion Gap BUN Creatinine Est Cr Clr Drug Dosing eGFR BUN/Creatinine Ratio Glucose POC Glucose 149 H 97 160 H Calcium 12/25/24 12/25/24 06:16 07:21 Sodium 128 L Potassium 4.5 Chloride 94 L Carbon Dioxide 26 Anion Gap 8 BUN 63 H Creatinine 2.07 H Est Cr Clr Drug Dosing 44.1 eGFR 33.61 BUN/Creatinine Ratio 30.4 H Glucose 128 H POC Glucose 134 H Calcium 8.8 PG Care Time/CCT Total # of Minutes Spent Total Time Spent with Patient: Total time spent is greater than 50% in coordination of care (as documented) at patient's floor/unit and/or counseling patient: Coding Level of Care Code 27502 SUB INP/OBS CARE 3/50MIN Diagnoses CHLOE (acute kidney injury) N17.9 Hyponatremia E87.1 Chronic diastolic heart failure I50.32 Heart failure chronicity: chronic Bacteremia R78.81 Prosthetic joint infection T84.50XA History of cor pulmonale Z86.79 Gout M10.9 Chronic atrial fibrillation I48.20 (3) Diastolic heart failure Heart failure chronicity: chronic Qualified Code(s): I50.32 - Chronic diastolic (congestive) heart failure
--- NOTE | 2024-12-25 11:35 | Discharge Summary ---
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 Blood cultures grew methicillin sensitive Staph aureus therefore he was diagnosed with MSSA bacteremia. Unclear where primary infection occurred but suspect either from pneumonia or right hip fluid collection after extensive workup. Blood cultures cleared on December 07. Right hip fluid collection aspiration initially grew Staph aureus on December 11 but repeat aspiration with no growth to date on December 18. On discussion with orthopedics due to high risk operation and likely prosthetic hip infection which was implanted many years ago no plans on operation at this time. He will follow-up with orthopedics as an outpatient for ongoing monitoring of this but his pain is minimal and stable during his hospitalization. He was initially on broad spectrum antibiotics but since culture results he has been on intravenous cefazolin for MSSA which he should continue until January 28 2025 with weekly CBC, CMP, ESR, CRP. Following completion of IV antibiotics he should transition to cefadroxil 500 mg p.o. BID for lifelong oral suppression per infectious disease recommendations. Right upper extremity PICC line is in place for IV antibiotics. Initial blood culture also grew Bacteroides fragilis and 1 out of 4 cultures. He completed metronidazole for this as an inpatient. No further antibiotics is required for this on discharge. Also notably he has an ovoid cystic structure along the inferior right gluteal crease. On exam this did not appear to be infected but recommend continuing monitoring on exam as an outpatient. If this starts to appear infected consider radiology guided aspiration to check for infection. This was also evaluated by general surgery. It currently has a pressure ulcer over the top of it but remains non-erythematous. Initially on admission he was diagnosed with heart failure which responded to Lasix 80mg IV BID but after several days he had a bump in Cr and was then stable on 40mg PO daily. His stay was prolonged due to acute renal failure after trial of increased diuretics again to 40mg IV BID. Suspect residual peripheral edema and pulmonary edema with pleural effusions is more nutritional and unable to take this off with diuretics. Creatinine is improving on discharge but still remains elevated. Creatinine was stable earlier in admission on Lasix 40 mg p.o. daily which should be considered to be restarted if your creatinine returns to normal (1.3- 1.5). He also has longer standing toe ulcers which have been receiving local wound ca re but do not suspect this was the source of MSSA at this time. Initially on admission he was diagnosed with acute urine retention requiring Watson catheter however this was successfully removed on December 10 after initiation of tamsulosin which he should continue. He suspected BPH symptoms were due to duloxetine as an outpatient which has been weaned off (as per prior to admission plan) and now discontinued. He should continue his usual BiPAP at night for obstructive sleep apnea and to help with his respiratory status as well as incentive spirometer during the daytime. Prior to hospitalization he was on room air but we have struggled to get him off 2 L/min O2 especially on exertion. At rest you are 90 to 94% on room air on discharge. He developed a stage II pressure ulcer over the cyst on his right inferior gluteal crease as well as skin tears on your arms during his hospitalization which have been improving with routine local wound care. Due to acute kidney injury as well as hypotension lisinopril was discontinued along with Jardiance and metformin. Lantus was started for his diabetes instead. Consider restarting metformin and Jardiance if his renal function improves. He was also diagnosed with a nondisplaced right femoral periprosthetic intertrochanteric fracture which was evaluated by orthopedics and suspected to be present prior to admission He is being discharged to [facility] for ongoing care. Please could weekly CBC, CMP, CRP and ESR be arranged on discharge from [facility] to be faxed to: ID office, concha Steph [facility] [phone] Follow up with [facility] in outpatient clinic: Clinic Address [address] [address] Office (P) [phone] Appointment-time frame: ~4-5 weeks Follow up with orthopedics for his right hip in 2-4 weeks Notes For Next Care Provider Complex admission. Please full discharge above. Medication Changes From Visit Lantus instead of Jardiance and metformin due to CHLOE - consider reintroducing as renal function improves Lisinopril stopped due to CHLOE and hypotension Lasix held due to CHLOE Allopurinol reduced due to CHLOE Admission HPI Per Admitting Provider The patient is a 69-year-old male with a past medical history including atrial fibrillation, PMR, peripheral neuropathy, pulmonary hypertension, HFpEF, diabetes mellitus type 2, hypertension, COPD, gout, and hypercholesterolemia. He presents to the emergency department with his daughter and accompanying, with complaint of shortness of breath for began 4 days ago. He has progressively worsened since that time. He developed temperature last evening to 103, and took the advice of his family, presenting to the ED for assessment. Workup in the emergency department included chest x-ray suggestive of by basilar pneumonia, and CHF. Pulse ox initially was in the mid 80s on room air, and had improved with OxyMask 4 L to the low 90s. However, patient worsened while in the ED, and had pulse ox remaining in the upper 70s to low 80s in spite of oxy mask increased to 12 L. Patient typically wears BiPAP at home, and was placed while in the ED. His oxygenation improved to the mid 90s, but is somewhat variable recording due to issues with likely with Raynaud's. He will be on BiPAP for 30 minutes, and I will be getting an ABG. While in the ED he did receive furosemide 40 mg IV, cefepime 2 g IV, and azithromycin 500 mg IV. We then gave him additional Lasix 40 mg IV, and Solu-Medrol 125 mg IV. Discharge Exam Respiratory normal respiratory effort; no respiratory distress Auscultation: + diminished lung sounds (bibasal) Cardiovascular Rate/Rhythm: regular rate and + irregularly irregular Extremities: + pedal edema Gastrointestinal (Abdomen) Percussion/Palpation: abdomen nontender Discharge Plan Discharge Items Patient Disposition: Transfer Inpatient Rehab Fac Reason For Visit: ACUTE RESP FAILURE WITH HYPOXIA, CHF EX, PNEUMONIA Discharge Diagnosis: Methicillin sensitive staphylococcus aureus bacteremia Right hip prosthetic infection and right hip abscess Urinary retention resolved CHLOE resolving Stage 2 pressure ulcer inferior gluteal fold Toe ulcers Hypoxia - ongoing Condition on Discharge: Fair Activity: Resume your previous activity Non-emergency contact: Primary Care Provider Call non-emergency contact if: you have any medication questions and your symptoms worsen Follow-up/Referrals: Nolan Soria MD [Primary Care Provider] - Yasir Beltran MD [Physician] - (Follow up MSSA bacteremia, prosthetic hip infection) Diet: Heart Healthy Addtl Attending Provider Instructions: You were admitted to [facility] from December 05 to December 25, 2024 due to shortness of breath and fever. Blood cultures grew methicillin sensitive Staph aureus. Unclear whether primary infection occurred but suspect either from pneumonia or right hip fluid collection after extensive workup. Blood cultures cleared on December 07. Right hip fluid collection initially grew Staph aureus on December 11 but repeat aspiration with no growth to date on December 18. On discussion with orthopedics due to high risk operation and likely prosthetic hip infection no plans on operation at this time. You will follow-up with orthopedics as an outpatient for ongoing monitoring of this. You were treated with intravenous cefazolin for MSSA which he should continue until January 28 with weekly CBC, CMP, ESR, CRP. Following completion of IV antibiotics you will be transitioned to cefadroxil 500 mg p.o. BID for lifelong oral suppression. Right upper extremity PICC line is in place for IV antibiotics. Initial blood culture also grew Bacteroides fragilis and 1 out of 4 cultures. You completed metronidazole treatment for this as an inpatient. No further antibiotics is required for this on discharge. Also notably you have an ovoid cystic structure along the inferior right gluteal crease. On exam this does not appear to be infected but recommend continuing monitoring on exam as an outpatient. If this starts to appear infected consider radiology guided aspiration to check for infection. Your stay was prolonged due to acute renal failure from diuretics. Suspect residual peripheral edema and pulmonary edema with pleural effusions is more nutritional and unable to take this off with diuretics. Creatinine is improving on discharge but still remains elevated. Creatinine was stable earlier in admission on Lasix 40 mg p.o. daily which should be considered to be restarted if your creatinine returns to normal (1.3-1.5). Of note you also have toe ulcers which have been receiving local wound care but do not suspect this was the source of MSSA at this time. You were in urine retention on admission requiring Watson catheter however this was successfully removed on December 10. Tamsulosin was started for this reason. You suspected BPH symptoms were due to duloxetine as an outpatient which has been weaned off and now discontinued. You should continue his usual BiPAP at night for obstructive sleep apnea and to help with his respiratory status as well as incentive spirometer during the daytime. Prior to hospitalization you were on room air but we have struggled to get you off 2 L/min O2 especially on exertion. At rest you are 90 to 94% on room air on discharge. You developed a stage II pressure ulcer over the cyst on his right inferior gluteal crease as well as skin tears on your arms which have been receiving local wound care. Please continue with this. Due to acute kidney injury as well as hypotension lisinopril was discontinued along with Jardiance and metformin. Lantus was started for your diabetes. Consider restarting these if his renal function improves. You are being discharged to [facility] for ongoing care. Please could weekly CBC, CMP, CRP and ESR be arranged on discharge from [facility] to be faxed to: ID office, concha Man [facility] [phone] Please follow up with [facility] in outpatient clinic: Clinic Address [address] [place] [address] Office (P) [phone] Appointment-time frame: ~4-5 weeks Follow up with orthopedics for your right hip in 2-4 weeks Pending Studies at Discharge: No Stand-Alone Forms: My [employer], Smoking Cessation Skilled Items Patient informed of condition?: Yes DNR: No Discharge Level of Care: Acute rehab Communicable Disease: No Discharge Prognosis: Improving Lines: PICC Urinary Catheter: No Medications and DC Order Prescriptions: New insulin glargine [Lantus U-100 Insulin] 100 unit/mL Solution 5 unit subcut QAM Qty: 10 0RF tamsulosin 0.4 mg Capsule 0.4 mg PO HS Qty: 30 0RF diclofenac sodium [Voltaren Arthritis Pain] 1 % Gel 4 g EXT QID PRN (Reason: Right knee pain) Qty: 100 0RF cefazolin 2 gram recon soln 2 g IV Q8H Continued albuterol sulfate 90 mcg/actuation aerosol powdr breath activated 2 inh inhalation Q4H PRN (Reason: shortness of breath or wheezing) Qty: 1 1RF diltiazem HCl 180 mg capsule,extended release 24hr 180 mg PO DAILY Qty: 90 3RF Trelegy Ellipta 100-62.5-25 mcg blister with device 1 inh inhalation DAILY Qty: 60 11RF Xarelto 20 mg tablet 20 mg PO DAILY Qty: 30 11RF Rx Instructions: must administer with a meal/food atorvastatin 10 mg tablet 10 mg PO QPM Qty: 90 3RF Rx Instructions: take with evening meal for cholesterol metoprolol tartrate 100 mg tablet 100 mg PO BID Qty: 180 3RF (DME) OneTouch Ultra Test Strip See Rx Instructions .ROUTE .COMPLEX Qty: 100 3RF Dose Instruction: USE TO CHECK BLOOD SUGAR ONCE DAILY Rx Instructions: USE TO CHECK BLOOD SUGAR ONCE DAILY E11.9 (DME) lancets Misc See Rx Instructions .Route Qty: 100 3RF Rx Instructions: One Touch Delica Lancet 33guage, test daily, E11.21 (DME) oxygen See Rx Instructions .Route .MEDSUPPLY Qty: 2 0RF Rx Instructions: As directed acetaminophen [Tylenol Extra Strength] 500 mg tablet 1,000 mg PO TID PRN (Reason: pain) Rx Instructions: TAke 3 times per day to lessen pain. Changed allopurinol 300 mg tablet 300 mg PO DAILY Qty: 180 3RF Held furosemide 80 mg tablet 80 mg PO DAILY Qty: 180 3RF Hold Instructions: Resume on 01/08/25. Hold until told to restart by physician following resolution of acute kidney injury Rx Instructions: Can increase to 80 mg BID as needed for shortness of breath, edema, weight gain. Discontinued Jardiance 10 mg tablet 10 mg PO QAM Qty: 30 11RF Rx Instructions: for diabetes, fluid overload and protein in urine metformin 500 mg tablet 500 mg PO BID Qty: 180 3RF lisinopril 5 mg tablet 5 mg PO DAILY Qty: 90 3RF duloxetine 30 mg capsule,delayed release(DR/EC) 30 mg PO DAILY Qty: 30 0RF Rx Instructions: Take with breakfast. Discharge Orders: Discharge Order (Routine); Ordered 12/25/24 Ordered By: Indio Carpenter/Other Patient Handouts: Tamsulosin Oral Capsule, Cefazolin Injection, Managing Type 2 Diabetes Admission Data Admit Date/Time: 12/05/24 21:26 Attending Provider: Indio Carvalho Admit Provider: Sergio Chaparro Primary Care Provider: Nolan Soria Other Providers: [facility]; Titi Ybarra; Evelina Pablo; Trevor Garza; Soco Vargas; Yasir Beltran; Fidel Trujillo; Brandy Ibrahim; Titi Nicolas; Trevor Arteaga Other Interventions: Discharge Summary Assessment (RN) Last Done: 12/25/24 11:34 Hospital Stay Data Consultations 12/05/24 20:53 ED Decision to Admit Stat 12/07/24 18:12 Consult Infectious Diseases Routine 12/08/24 10:36 Consult Orthopedic Surgery Routine 12/08/24 14:27 Consult Pulmonology Routine 12/09/24 16:44 Consult General Surgery Routine 12/23/24 07:23 Consult Nephrology Routine Procedures Performed Operation Date: 12/12/24 07:30 Actual Procedures p Echo Transesophageal - Fidel Trujillo MD s Echo Doppler Complete - Fidel Trujillo MD s Echo Color Flow - Fidel Trujillo MD Diagnostic Imagining Performed 12/08/24 10:18 US arterial duplex LE BI Stat 12/09/24 08:52 CT abd pelvis IV con only Routine 12/11/24 08:07 IR aspinj mjr jnt sh,hip,kn RT Routine 12/11/24 16:21 MRI Foot [MR foot LT wo/w con] Routine 12/17/24 14:15 CT hip RT w con Urgent 12/18/24 11:13 IR aspinjmjrjnt sh,hip,knRT CT Routine 12/21/24 16:38 CT chest diagnostic wo con Routine 12/23/24 07:21 US Renal Bladder [US renal/blad retro comp] Stat Pending Results Patient Have Any Pending Studies at Discharge: No Discharge Instructions Given to Patient (Per Discharging Provider) You were admitted to [facility] from December 05 to December 25, 2024 due to shortness of breath and fever. Blood cultures grew methicillin sensitive Staph aureus. Unclear whether primary infection occurred but suspect either from pneumonia or right hip fluid collection after extensive workup. Blood cultures cleared on December 07. Right hip fluid collection initially grew Staph aureus on December 11 but repeat aspiration with no growth to date on December 18. On discussion with orthopedics due to high risk operation and likely prosthetic hip infection no plans on operation at this time. You will follow-up with orthopedics as an outpatient for ongoing monitoring of this. You were treated with intravenous cefazolin for MSSA which he should continue until January 28 with weekly CBC, CMP, ESR, CRP. Following completion of IV antibiotics you will be transitioned to cefadroxil 500 mg p.o. BID for lifelong oral suppression. Right upper extremity PICC line is in place for IV antibiotics. Initial blood culture also grew Bacteroides fragilis and 1 out of 4 cultures. You completed metronidazole treatment for this as an inpatient. No further antibiotics is required for this on discharge. Also notably you have an ovoid cystic structure along the inferior right gluteal crease. On exam this does not appear to be infected but recommend continuing monitoring on exam as an outpatient. If this starts to appear infected consider radiology guided aspiration to check for infection. Your stay was prolonged due to acute renal failure from diuretics. Suspect residual peripheral edema and pulmonary edema with pleural effusions is more nutritional and unable to take this off with diuretics. Creatinine is improving on discharge but still remains elevated. Creatinine was stable earlier in admission on Lasix 40 mg p.o. daily which should be considered to be restarted if your creatinine returns to normal (1.3-1.5). Of note you also have toe ulcers which have been receiving local wound care but do not suspect this was the source of MSSA at this time. You were in urine retention on admission requiring Watson catheter however this was successfully removed on December 10. Tamsulosin was started for this reason. You suspected BPH symptoms were due to duloxetine as an outpatient which has been weaned off and now discontinued. You should continue his usual BiPAP at night for obstructive sleep apnea and to help with his respiratory status as well as incentive spirometer during the daytime. Prior to hospitalization you were on room air but we have struggled to get you off 2 L/min O2 especially on exertion. At rest you are 90 to 94% on room air on discharge. You developed a stage II pressure ulcer over the cyst on his right inferior gluteal crease as well as skin tears on your arms which have been receiving local wound care. Please continue with this. Due to acute kidney injury as well as hypotension lisinopril was discontinued along with Jardiance and metformin. Lantus was started for your diabetes. Consider restarting these if his renal function improves. You are being discharged to [facility] for ongoing care. Please could weekly CBC, CMP, CRP and ESR be arranged on discharge from [facility] to be faxed to: ID office, con[facility] Man [facility] [phone] Please follow up with [facility] in outpatient clinic: Clinic Address [address] [place] [address] Office (P) [phone] Appointment-time frame: ~4-5 weeks Follow up with orthopedics for your right hip in 2-4 weeks Total Time Total Time Spent Total Time Spent (In Minutes): 50 Total Time Includes: Examination of the Patient, Discharge Planning, Medication Reconciliation and Communication With Other Providers Coding Level of Care Code 35146 INP/OBS DISCH >30 MIN Diagnoses Staphylococcus aureus bacteremia R78.81; B95.61 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
[2024-12-25 11:36] VITALS: PULSE 78
== END 2024-12-25 14:17 | DRG 871 ==
LOC: ED 18:56 → 2E 21:26 → SUATTDRO 21:26 → 2E 23:15 → 3W 12-19 22:30

== ENCOUNTER 2025-01-06 11:11 | Inpatient (IN) ==
--- NOTE | 2025-01-06 11:29 | Emergency Department Note ---
Impression & Plan Acute respiratory failure with hypoxia, Acute on chronic heart failure with preserved ejection fraction, Chronic atrial fibrillation, Acute on chronic renal insufficiency ED Provider Note NAME: MP HERNÁNDEZ AGE: 69 SEX: M : 1955 ARRIVES VIA: Ambulance INFORMANT: Patient ED PROVIDER(S): Jj Gary MD CHIEF COMPLAINT: Hypoxia, referred PLAN: Disposition: Admit MEDICAL DECISION MAKING: The patient is a pleasant 69-year-old gentleman with a past medical history of atrial fibrillation on Xarelto, hypertension, hyperlipidemia, AISHA, diabetes, CKD, CHF with recent complicated hospitalization from 12/05-12/25 for Staphylococcus aureus bacteremia, infection associated with right hip replacement, CHF, pneumonia who presents to the emergency department via EMS from his acute rehab facility at [facility] for worsening shortness of breath with hypoxia in the 70s despite treatment with IV Lasix. The patient has continued treatment with IV cefazolin via his PICC line. The patient denies any fevers, productive cough, GI or symptoms.. On evaluation the patient is acute on chronic ill-appearing but no acute distress, afebrile with O2 saturation in the mid 70s on room air, improving to low-mid 90s with oxy mask. He appears hypervolemic with 2+ bilateral lower extremity pitting edema, abdominal anasarca and rales and diminished breath sounds at bilateral lung bases. EKG demonstrates atrial fibrillation without acute ischemia. Chest x-ray demonstrates progressive congestive change in pulmonary edema with layering pleural effusion and bibasilar consolidation. WBC 13.4 K with neutrophilia but no left shift, nonspecific. H/H similar to prior. Platelets within normal limits. INR 1.5 in the setting of Xarelto therapy. VBG with pCO2 of 53 and normal pH. Chemistry without metabolic acidosis. Creatinine 2.6 increased from discharge values but also in the setting of hypervolemia. LFTs unremarkable. BNP 540 increased from prior value and consistent with patient's fluid retention. Albumin is low at 2.6. Lipase normal. Procalcitonin is not elevated. UA appears contaminated without bacteria. Given the patient's acute hypoxic respiratory failure despite IV diuresis at his facility patient was referred to the hospital service for further management. Treatment initiated with IV Bumex. Case was d/w Dr. Carvalho, [facility] hospitalist who will evaluate the patient for admission. Further management per admitting team. Triage Nursing notes reviewed and agree them. Prior/external medical records reviewed Vital Signs: reviewed Differential diagnosis: Reactive airway disease, pneumonia, pneumothorax, COPD, CHF, infections, cardiac ischemia, pulmonary embolism, musculoskeletal, gastrointestinal, as well as other pathologies. ER treatment provided: See below. Diagnostics interpreted by me: ECG: Atrial fibrillation, 82 bpm, no ectopy, no overt ST elevation or depression, QTc 427, QRS 98. Cardiac Monitoring: An order for continuous cardiac monitoring was placed and demonstrated atrial fibrillation, 82 bpm, no ectopy. Laboratory studies: See below Imaging studies: See below Consultation(s): Case was d/w Dr. Carvalho, [facility] hospitalist who will evaluate the patient for admission. HPI: Per MDM. ROS: See above HPI for pertinent positives & negatives. A total of 10 systems reviewed and were otherwise negative. VITALS:See Below PHYSICAL EXAMINATION: GENERAL: Awake, alert, acute on chronically ill-appearing, in no distress, BMI 35.6. HENT: Normocephalic, atraumatic. Oropharynx unremarkable. EYES: Normal conjunctiva. Sclera non-icteric. NECK: Supple. No nuchal rigidity. FROM. No JVD. RESPIRATORY: Diminished breath sounds and Rales at bilateral lung bases. CARDIAC: Regular rate, irregular rhythm. Extremities warm and well perfused. Pulses equal. ABDOMEN: Soft, non-distended. No tenderness to palpation. No rebound or guarding. Anasarca. MUSCULOSKELETAL: Chest examination reveals no tenderness. The back is symmetrical on inspection without obvious abnormality. There is no CVA tenderness to palpation. LOWER EXTREMITIES: Calves are equal size bilaterally and non-tender. 2+ bilateral lower extremity pitting edema. NEURO: Normal sensorium. No sensory or motor deficits noted. SKIN: No rash or jaundice noted. 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 Diabetic foot ulcer Staphylococcus aureus bacteremia Pilonidal cyst AISHA treated with BiPAP Community acquired pneumonia CHF (congestive heart failure) (Acute) Pneumonia (Acute) Urinary retention due to benign prostatic hyperplasia CHF exacerbation Pneumonia Acute respiratory failure with hypoxia PMR (polymyalgia rheumatica) Urinary frequency Trochanteric bursitis, right hip Periprosthetic fracture around internal prosthetic right hip joint (Acute) Peripheral neuropathy Pulmonary hypertension Diastolic heart failure (Chronic) (HFpEF) heart failure with preserved ejection fraction Type 2 diabetes mellitus (Acute) Status post right knee replacement (Acute) Hx of congestive heart failure Chronic atrial fibrillation (Acute) Taking Xarelto COPD (chronic obstructive pulmonary disease) Elevated bilirubin Right knee DJD Benign essential hypertension (Chronic) Chronic obstructive pulmonary disease (Chronic) Gout (Chronic) Hypercholesterolemia (Chronic) Medical History (Updated 01/07/25 @ 01:57 by Jj Gary MD) History of cor pulmonale Other secondary pulmonary hypertension Echo/RHC 04/2023 Type II/III [facility]. Per visit 04/2023, "Predominantly he has pulmonary hypertension is postcapillary due to diastolic heart failure. Treatment of this syndrome is maintaining an adequate volume status." Lumbar spinal stenosis DJD (degenerative joint disease) Hx of diabetic foot ulcer Hx of left foot ulcer "resolved" per patient- no active infection/ulcer Monitored/following with [facility] for ankle and foot care Venous insufficiency Osteoarthritis Diabetes Hyperlipidemia HTN (hypertension) Hx of gout History of COVID-19 (01/2023) Hospitalized x 3 days at [facility] AISHA (obstructive sleep apnea) BIPAP (compliant) Surgical History (Updated 12/30/24 @ 00:08 by Althea Walsh) Hx of total knee replacement 10/11/23 History of lumbar fusion (2008) Hx of cardiac catheterization (04/26/23) RHC- Significantly elevated pulmonary capillary wedge pressure. Significantly elevated pulmonary arterial pressure and pulmonary vascular resistance. Significantly elevated right ventricular end-diastolic pressure and right atrial pressure. Recommend continue diuresis for volume overload. Additional recommendations regarding elevated pulmonary vascular resistance per pulmonary medicine team. H/O total hip arthroplasty Right History of vasectomy Family History Mother Coronary heart disease Hypertension Diabetes Denies family history of Ovarian cancer Prostate cancer Myocardial infarction Breast cancer Colorectal cancer Social History Smoking Status: Former smoker Tobacco Type: Cigarettes Age Started Using Tobacco: 10; Age Quit Using Tobacco: 48; packs per day: 2.5; Second Hand Exposure: Yes; Do You Dip or Chew Tobacco: No; Hx Alcohol Use: No Hx Substance Use: No Preferred Language: German Communication Ability: Effective Visual Impairment: No Limitations Horse Groomer Required: No Beliefs That Will Affect Care: None marital status: Current Living Situation: Spouse Current Living Situation Comment: and brother in law. current occupational status: disabled Other Information That Helps Us Care for You: No Feels Safe at Home: Yes Safety Concerns: Feels Safe At This Time Childhood Exposure to Second-Hand Smoke: Yes Diet: DASH caffeine: Yes Seatbelt Use: always Sunscreen Use: No Assistive Devices: Cane, Glasses and Walker Assistive Devices Comment: glasses bedside Allergies Allergies Allergy/AdvReac Type Severity Reaction Status Date / Time dicyclomine [From Bentyl] Allergy Unknown CAN'T Verified 01/06/25 14:54 REMEMBER Home Meds Home Medications Medication Instructions Recorded Confirmed acetaminophen 500 mg tablet 500 mg PO Q4H PRN TEMP >100.5 12/05/24 01/06/25 (Tylenol Extra Strength) acetaminophen 500 mg tablet 1,000 mg PO Q8H PRN Pain 01/06/25 01/06/25 (Tylenol Extra Strength) furosemide 10 mg/mL injection 20 mg IV Q12H 01/06/25 01/06/25 solution insulin aspart U-100 100 unit/mL 1 sliding scale dose subcut 01/06/25 01/06/25 subcutaneous solution (Novolog USEASDIRECTD U-100 Insulin aspart) insulin glargine 100 unit/mL 5 unit subcut Q12H 01/06/25 01/06/25 subcutaneous solution (Lantus U-100 Insulin) ondansetron 4 mg disintegrating 4 mg PO Q6H PRN NAUSEA/VOMITING 01/06/25 01/06/25 tablet rivaroxaban 15 mg tablet (Xarelto) 15 mg PO DAILY 01/06/25 01/06/25 sodium chloride 0.9 % (flush) 10 ml IV Q12H 01/06/25 01/06/25 sodium chloride 1,000 mg soluble 1,000 mg PO DAILY 01/06/25 01/06/25 tablet Previous Rx's Medication Instructions Recorded albuterol sulfate 90 mcg/actuation 2 inh inhalation Q4H PRN shortness 03/18/23 breath activated powder inhaler of breath or wheezing #1 ea oxygen #2 ea 04/28/23 diltiazem HCl 180 mg 180 mg PO DAILY #90 caps 03/12/24 capsule,extended release 24 hr fluticasone fur. 100 mcg-umeclid 1 inh inhalation DAILY #60 ea 03/12/24 62.5 mcg-vilant 25 mcg inhalat.powder (Trelegy Ellipta) atorvastatin 10 mg tablet 10 mg PO QPM #90 tabs 04/11/24 furosemide 80 mg tablet 80 mg PO DAILY #180 tabs 04/11/24 metoprolol tartrate 100 mg tablet 100 mg PO BID #180 tabs 04/11/24 blood sugar diagnostic (OneTouch #100 ea 06/07/24 Ultra Test strips) lancets #100 ea 06/07/24 cefazolin 2 gram intravenous 2 g IV Q8H 12/25/24 solution diclofenac sodium 1 % topical gel 4 g EXT QID PRN Right knee pain 12/25/24 (Voltaren Arthritis Pain) #100 grams tamsulosin 0.4 mg capsule 0.4 mg PO HS #30 caps 12/25/24 Results & Data (ED) Vital Signs Vital Signs - 24 hr 01/06/25 11:15 01/06/25 11:15 01/06/25 11:15 Temperature 36.4 C L Temperature Source Oral Pulse Rate 84 Pulse Rate [Apical] Pulse Rate from SpO2 Sensor Pulse Rhythm [Apical] Respiratory Rate 12 Respiratory Effort / Characteristics Non-Labored Spontaneous Respiratory Depth Shallow Shallow Respiratory Pattern Regular Blood Pressure 109/66 Blood Pressure [Left Arm] Blood Pressure Mean 80 Blood Pressure Mean [Left Arm] Pulse Oximetry 75 L 75 L Oxygen Delivery Method Room Air Room Air Oxygen Flow Rate Sepsis Recent Fever Within 48 Hours No Sepsis New/Unexplained Change in Mental Status No Sepsis Action Taken by Nursing No Action Required Oxygen Flow Rate - Titration 10 Pulse Oximetry Post Tiitration 90 01/06/25 11:15 01/06/25 11:24 01/06/25 11:28 Temperature 36.4 C L Temperature Source Oral Pulse Rate 81 Pulse Rate [Apical] 84 Pulse Rate from SpO2 Sensor Pulse Rhythm [Apical] Irregular Respiratory Rate 12 Respiratory Effort / Characteristics Non-Labored Spontaneous Respiratory Depth Shallow Respiratory Pattern Regular Blood Pressure Blood Pressure [Left Arm] 109/66 Blood Pressure Mean Blood Pressure Mean [Left Arm] 80 Pulse Oximetry 75 L 92 Oxygen Delivery Method Room Air Oxymask Oxygen Flow Rate 10 Sepsis Recent Fever Within 48 Hours Sepsis New/Unexplained Change in Mental Status Sepsis Action Taken by Nursing Oxygen Flow Rate - Titration Pulse Oximetry Post Tiitration 01/06/25 11:31 01/06/25 12:07 01/06/25 12:30 Temperature Temperature Source Pulse Rate 85 Pulse Rate [Apical] 78 80 Pulse Rate from SpO2 Sensor 84 Pulse Rhythm [Apical] Respiratory Rate 19 20 21 Respiratory Effort / Characteristics Non-Labored Spontaneous Non-Labored Spontaneous Respiratory Depth Shallow Shallow Respiratory Pattern Regular Regular Blood Pressure 109/77 Blood Pressure [Left Arm] 115/74 111/74 Blood Pressure Mean 87 Blood Pressure Mean [Left Arm] 87 86 Pulse Oximetry 94 93 94 Oxygen Delivery Method Oxymask Oxymask Oxymask Oxygen Flow Rate 10 9 9 Sepsis Recent Fever Within 48 Hours Sepsis New/Unexplained Change in Mental Status Sepsis Action Taken by Nursing Oxygen Flow Rate - Titration Pulse Oximetry Post Tiitration Laboratory Data Attestation: I reviewed the patient's lab results. 01/06/25 11:20 01/06/25 11:20 Lab Results 01/06/25 01/06/25 Range/Units 11:20 11:32 WBC 13.40 H (4.8-10.8) K/ul RBC 2.60 L (4.70-6.10) M/uL Hgb 8.3 L (14.0-18.0) g/dL Hct 25.8 L (42.0-52.0) % MCV 99.2 (80.0-100.0) fL MCH 31.9 (25.0-34.0) pg MCHC 32.2 (32.0-36.0) g/dL RDW Std Deviation 74.7 H (36.4-46.3) fL RDW Coeff of Marce 20.6 H (11.5-14.5) % Plt Count 347 (130-400) K/uL MPV 10.6 (9.4-12.4) fL Immature Gran % (Auto) 0.5 % Neut % (Auto) 81.9 % Lymph % (Auto) 4.9 % [place] % (Auto) 9.9 % Eos % (Auto) 2.2 % Baso % (Auto) 0.6 % Neut # (Auto) 10.97 H (1.40-6.50) K/uL Lymph # (Auto) 0.66 L (1.20-3.40) K/uL [place] # (Auto) 1.33 H (0.11-0.59) K/uL Eos # (Auto) 0.29 (0.00-0.50) K/uL Baso # (Auto) 0.08 (0.00-0.20) K/uL Immature Gran # (Auto) 0.07 (0.01-0.20) K/uL Absolute Nucleated RBC 0.04 (0.00-0.12) K/uL Nucleated RBC % (auto) 0.3 % Polychromasia 2+ Basophilic Stippling 1+ Anisocytosis Present Schistocytes 1+ PT 15.1 H (9.0-12.0) Seconds INR 1.5 H (0.9-1.1) VBG pH 7.39 (7.36-7.41) VBG pCO2 53 H (38-50) mmHg VBG pO2 34 mmHg VBG HCO3 32 mmol/L VBG O2 Saturation < 60.0 % VBG Base Excess 5.7 mEq/L Sodium 137 (136-145) mmol/L Potassium 4.3 (3.5-5.1) mmol/L Chloride 99 (98-107) mmol/L Carbon Dioxide 32 (21-32) mmol/L Anion Gap 6 (3-11) BUN 134 H (6-23) mg/dl Creatinine 2.65 H (0.6-1.4) mg/dl Est Cr Clr Drug Dosing 37.0 ml/min eGFR 24.99 BUN/Creatinine Ratio 50.6 H (10-20) Glucose 171 H (70-99(Fasting)) mg/dl Lactate 1.1 (0.4-2.0) mmol/L Calcium 8.8 (8.6-10.3) mg/dl Magnesium 2.2 (1.7-2.4) mg/dl Total Bilirubin 0.3 (0.2-1.0) mg/dl Direct Bilirubin 0.1 (0-0.2) mg/dl AST 15 (13-39) U/L ALT < 3 L (7-52) U/L Alkaline Phosphatase 96 (34-104) U/L Troponin I High Sens 10.9 (0-20) pg/ml B-Natriuretic Peptide 547 H (0-100) pg/ml Total Protein 5.8 L (6.0-8.3) gm/dl Albumin 2.6 L (3.4-5.0) gm/dl Lipase 22 (11-82) U/L Procalcitonin 0.16 (0-0.5) ng/ml Urine Color Yellow Urine Appearance Cloudy A (Clear) Urine pH 5.0 (4.5-7.5) Ur Specific [place] 1.012 (1.000-1.030) Urine Protein 2+ H (Negative) Urine Glucose (UA) Negative (Negative) Urine Ketones Negative (Negative) Urine Blood 3+ H (Negative) Urine Nitrite Negative (Negative) Urine Bilirubin Negative (Negative) Urine Urobilinogen Negative (Negative) Ur Leukocyte Esterase 2+ H (Negative) Urine WBC (Auto) >50 H (0-5) /hpf Urine RBC (Auto) >20 H (0-2) /hpf U Hyaline Cast (Auto) 6-10 H (0-2) /lpf U Epithel Cells (Auto) 3-5 H (0-2) /hpf Urine Bacteria (Auto) None Seen (None Seen) Urine Comment Administered Medications Atorvastatin Calcium (Atorvastatin 10 Mg Tab) 10 mg PO QPM IVETH Stop: 02/05/25 20:59 Last Admin: 01/06/25 19:55 Dose: 10 mg Documented By: JALEESA Cefazolin Sodium (Ancef 2000mg) 2,000 mg in 15 mls @ 3.75 mls/min IV Q8H IVETH Stop: 01/20/25 15:29 Last Admin: 01/06/25 23:59 Dose: 3.75 mls/min Documented By: Admin: 01/06/25 15:52 Dose: 3.75 mls/min Documented By: Insulin Aspart (Insulin Aspart Per Unit Charge) 0 units SC ACHS IVETH Stop: 02/05/25 16:29 Last Admin: 01/06/25 21:43 Dose: 1 units Documented By: JALEESA Co-signed By: delia Admin: 01/06/25 17:48 Dose: 1 units Documented By: Co-signed By: KT Metoprolol Tartrate (Metoprolol Tartrate 100 Mg Tab) 100 mg PO BID IVETH Stop: 02/05/25 20:59 Last Admin: 01/06/25 19:55 Dose: 100 mg Documented By: JALEESA Tamsulosin HCl (Tamsulosin Hcl 0.4 Mg Cap) 0.4 mg PO HS IVETH Stop: 02/05/25 20:59 Last Admin: 01/06/25 19:55 Dose: 0.4 mg Documented By: JALEESA Discontinued Medications Bumetanide 2 mg/ Syringe 8 mls @ 4 mls/min IV ONE ONE Stop: 01/06/25 13:18 Last Admin: 01/06/25 14:36 Dose: 4 mls/min Documented By: [facility] Imaging Data Radiologist's Impression: Renal Ultrasound 01/06/25 13:39 Exam: Retroperitoneal ultrasound. History: Acute kidney insufficiency. Comparison: December 23, 2024. Findings: Right kidney measures 7.0 x 11.8 x 6.3 cm. No stone, mass or hydronephrosis. At least mild cortical volume loss. Left kidney measures 11.6 x 6.8 x 5.8 cm. This contains a hypoechoic through transmitting 2.1 x 2.0 x 3.1 cm nodule. This does not demonstrate color flow. No solid mass, stone or hydronephrosis. Mild cortical volume loss. Urinary bladder not evaluated on this exam. Technologist reports Watson catheter in place. Impression: Mild bilateral cortical volume loss with benign left renal cyst. Otherwise no findings to suggest source for patient's symptoms. Electronically signed by Ronnie Isaacs 01-06-2025 2:36 PM Discharge Plan Visit Data Chief Complaint: Respiratory Distress Stated Complaint: LOW O2, AFIB ED Provider: Jj Gary Discharge Problem: Acute respiratory failure with hypoxia, Acute on chronic heart failure with preserved ejection fraction, Chronic atrial fibrillation, Acute on chronic renal insufficiency Patient Disposition: Admitted As Inpatient Condition: Serious Discharge Instructions Interventions: ED Discharge Assessment Last Done: 01/06/25 15:05
[2025-01-06 11:43] LABS: Base Excess VBG 5.7 mEq/L; HCO3 VBG 32 mmol/L; Oxygen Saturation VBG < 60.0 %; PCO2 VBG 53 mmHg (38-50); PO2 VBG 34 mmHg; pH VBG 7.39 (7.36-7.41)
[2025-01-06 11:47] LABS: Hematocrit (blood only) 25.8 % (42.0-52.0); Hemoglobin 8.3 g/dL (14.0-18.0); Immature Granulocytes # (auto) 0.07 K/uL (0.01-0.20); Immature Granulocytes % (auto) 0.5 %; Mean Corpuscular Hemoglobin 31.9 pg (25.0-34.0); Mean Corpuscular Volume 99.2 fL (80.0-100.0); Platelet Count 347 K/uL (130-400); RDW Standard Deviation 74.7 fL (36.4-46.3); Red Blood Count 2.60 M/uL (4.70-6.10); White Blood Count 13.40 K/ul (4.8-10.8)
[2025-01-06 11:50] LABS: Appearance Urine Cloudy (Clear); Bacteria Urine Automated None Seen (None Seen); Glucose Urine UA Negative (Negative); RBC Urine Automated >20 /hpf (0-2); WBC Urine Automated >50 /hpf (0-5)
--- NOTE | 2025-01-06 11:50 | XRay Report ---
SINGLE VIEW CHEST CLINICAL HISTORY: Sepsis FINDINGS: An AP, portable, upright chest radiograph is compared to study dated 12/19/2024 and correla radha with chest CT dated 12/22/2024. The examination is degraded by portable technique and apical lordo tic positioning. A right-sided PICC line is unchanged in position. The heart is enlarged noting ather osclerotic calcification of the thoracic aorta. There is pulmonary vascular congestion with interstit ial edema. There are layering pleural effusions with dependent consolidation. Emphysematous changes o bserved. Calcified granulomas are again noted. No pneumothorax is seen. The skeletal structures are o steopenic. The bony thorax is grossly intact. IMPRESSION: 1. Cardiomegaly and emphysema with evidence of congestive failure and pulmonary edema. 2. Layering pleural effusions with bibasilar consolidation. Radiographic follow-up to resolution is r ecommended. ACT 112: Negative or not required by law. Electronically signed by: Nolan Danielson M.D. 01/06/2025 11:49 AM
[2025-01-06 12:14] LABS: INR 1.5 (0.9-1.1); Prothrombin Time 15.1 Seconds (9.0-12.0)
[2025-01-06 12:18] LABS: Anisocytosis Present; Basophilic Stippling 1+; Polychromasia 2+; Schistocytes 1+
[2025-01-06 12:32] LABS: Alanine Aminotransferase < 3 U/L (7-52); Albumin Level 2.6 gm/dl (3.4-5.0); Alkaline Phosphatase 96 U/L (34-104); Anion Gap 6 (3-11); Bilirubin,Total 0.3 mg/dl (0.2-1.0); Blood Urea Nitrogen 134 mg/dl (6-23); Calcium 8.8 mg/dl (8.6-10.3); Carbon Dioxide 32 mmol/L (21-32); Chloride 99 mmol/L (98-107); Creatinine Clr Calc Pharmacy 37.0 ml/min; Glucose 171 mg/dl (70-99(Fasting)); Lipase 22 U/L (11-82); Magnesium 2.2 mg/dl (1.7-2.4); Potassium 4.3 mmol/L (3.5-5.1); Sodium 137 mmol/L (136-145); Total Protein 5.8 gm/dl (6.0-8.3)
--- NOTE | 2025-01-06 14:10 | History & Physical Report ---
Date of Service January 06, 2025 Assessment & Plan (1) Acute on chronic heart failure with preserved ejection fraction: (2) CHLOE (acute kidney injury): (3) Uremia: (4) Prosthetic joint infection: (5) Staphylococcus aureus bacteremia: (6) AISHA treated with BiPAP: Plan 69yo male with recent MSSA bacteremia from right hip collection presents to the ER from [facility] due to leg swelling, hypoxia and shortness of breath #Acute on chronic heart failure with preserved ejection fraction / CHLOE / uremia / Acute respiratory failure with hypoxia Baseline O2 on room air at rest although on last admission minimal exertion caused him to need 2LPM O2, needs to wear BiPAP at night and while napping Possibly secondary to salt tab given at [facility], recommend low salt diet, will fluid restrict to avoid hyponatremia and stop the salt tab (his overall body sodium is clearly elevated and concentration is now normal) Bumex 2mg IV BID Possibly will benefit from thoracentesis and will place Xarelto on hold to allow for this if needed Strict I&Os, Daily standing weights CHLOE started last admission after over diuresis therefore need to be cognizant of this but clearly hypervolemic on admission, will get BNP q2d to monitor US renal, Urine Na 2 hours after bumex to help dose diuretics Consult nephrology #Left lower extremity ulcer Suspected from leg swelling, no definitive surrounding cellulitis and swelling is equal to right side therefore will elect to monitor for now, picture in H&P, rather than escalate antibiotics Surface wound culture taken #Staph aureus bacteremia Diagnosed last admission with source right hip - due to medical complexity and other factors, no plans for I/D or explantation of right hip hardware Continue cefazolin 2g IV q8h (renally dosed) with last date 01/28, planning on cefadroxil following this -RUE PICC line in place #BPH with urinary retention -prior admission wolfe catheter removed prior to discharge, he reports placed back the last couple of days -consider trial without catheter prior to discharge but given current CHLOE will continue for accurate I&Os -continue tamsulosin #Nondisplaced right femoral periprosthetic intertrochanteric fracture Diagnosed last admission WBAT #Toe ulcers -cont local wound care #Chronic atrial fibrillation/hypertension- -Xarelto on hold for possible thoracentesis -cont metoprolol titrate and diltiazem #COPD - -no exacerbation at this time -Dugladys PRN -Continue Trelegy #Type 2 Diabetes mellitus- -Stopped Jardiance due to CHLOE last admission -HbA1C 6.7 -NovoLog SSI, added lantus but glucose 92 therefore will reduce to 5 units daily -BSGs controlled #Hyperlipidemia -Continue atorvastatin #Chronic gout -holding allopurinol, will get uric acid level in AM -no flare at this time #AISHA -cont home BIPAP HS VTE Prophylaxis - Xarelto (renally dosed) Disposition - admit to PCU Admission and Anticipated Discharge Date Admission Date: January 06, 2025 History of Present Illness Chief Complaint: Worsening oxygenation, leg swelling and shortness of breath Primary Care Provider: Nolan Soria MD Madhu Fermin is a 69 year old male who presents to the ER from [facility] due to hypervolemia. He was admitted to [facility] from December 05 to December 25, 2024 treated for MSSA bacteremia. Unclear where primary infection occurred but suspect either from pneumonia or right hip fluid collection after extensive workup. Blood cultures cleared on December 07. On discussion with orthopedics due to high risk operation and likely prosthetic hip infection which was implanted many years ago decided against operating at that time. He was discharged on intravenous cefazolin which to continue until January 28 2025. Initially on that hospitalization he was hypervolemic and responded to intravenous Lasix 80mg IV twice a day however further attempts at diuretics led to bump in Cr and holding those diuretics led to improvement of Cr although he was not back to his baseline on discharge but trending in the right direction and he was previously steady on Lasix 40mg oral. Unknown exact diuretic regimen at [facility] but he reports wolfe catheter was inserted a few days ago and started on Lasix 40mg IV twice a day which looks like it was increased to this dose on January 04. He was also started on Sodium chloride 1g PO daily on December 28 although not clear from available notes what this was treating he was hyponatremic on discharge although this was suspected to be due to diuretics rather than SIADH and was trending up. The patient is unsure on what medications were changed or when but notes his leg swelling and shortness of breath sudden started getting much worse a few days ago. No fever, chills or cough. Allergies Allergy/AdvReac Type Severity Reaction Status Date / Time dicyclomine [From Bentyl] Allergy Unknown CAN'T Verified 01/06/25 14:54 REMEMBER Home Medications Medication Instructions Recorded Confirmed Type albuterol sulfate 90 mcg/actuation 2 inh inhalation Q4H PRN shortness 03/18/23 01/06/25 Rx breath activated powder inhaler of breath or wheezing #1 ea oxygen #2 ea 04/28/23 10/26/24 Rx diltiazem HCl 180 mg 180 mg PO DAILY #90 caps 03/12/24 01/06/25 Rx capsule,extended release 24 hr fluticasone fur. 100 mcg-umeclid 1 inh inhalation DAILY #60 ea 03/12/24 01/06/25 Rx 62.5 mcg-vilant 25 mcg inhalat.powder (Trelegy Ellipta) atorvastatin 10 mg tablet 10 mg PO QPM #90 tabs 04/11/24 01/06/25 Rx furosemide 80 mg tablet 80 mg PO DAILY #180 tabs 04/11/24 01/06/25 Rx metoprolol tartrate 100 mg tablet 100 mg PO BID #180 tabs 04/11/24 01/06/25 Rx blood sugar diagnostic (OneTouch #100 ea 06/07/24 10/26/24 Rx Ultra Test strips) lancets #100 ea 06/07/24 10/26/24 Rx acetaminophen 500 mg tablet 500 mg PO Q4H PRN TEMP >100.5 12/05/24 01/06/25 History (Tylenol Extra Strength) cefazolin 2 gram intravenous 2 g IV Q8H 12/25/24 01/06/25 Rx solution diclofenac sodium 1 % topical gel 4 g EXT QID PRN Right knee pain 12/25/24 01/06/25 Rx (Voltaren Arthritis Pain) #100 grams tamsulosin 0.4 mg capsule 0.4 mg PO HS #30 caps 12/25/24 01/06/25 Rx acetaminophen 500 mg tablet 1,000 mg PO Q8H PRN Pain 01/06/25 01/06/25 History (Tylenol Extra Strength) furosemide 10 mg/mL injection 20 mg IV Q12H 01/06/25 01/06/25 History solution insulin aspart U-100 100 unit/mL 1 sliding scale dose subcut 01/06/25 01/06/25 History subcutaneous solution (Novolog USEASDIRECTD U-100 Insulin aspart) insulin glargine 100 unit/mL 5 unit subcut Q12H 01/06/25 01/06/25 History subcutaneous solution (Lantus U-100 Insulin) ondansetron 4 mg disintegrating 4 mg PO Q6H PRN NAUSEA/VOMITING 01/06/25 01/06/25 History tablet rivaroxaban 15 mg tablet (Xarelto) 15 mg PO DAILY 01/06/25 01/06/25 History sodium chloride 0.9 % (flush) 10 ml IV Q12H 01/06/25 01/06/25 History sodium chloride 1,000 mg soluble 1,000 mg PO DAILY 01/06/25 01/06/25 History tablet Past Med/Surg History Problem List (Updated 01/06/25 @ 15:32 by Indio Carvalho MD) Uremia Acute on chronic heart failure with preserved ejection fraction Prosthetic joint infection Bacteremia CHLOE (acute kidney injury) 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 Diabetic foot ulcer Staphylococcus aureus bacteremia Pilonidal cyst AISHA treated with BiPAP Community acquired pneumonia CHF (congestive heart failure) (Acute) Pneumonia (Acute) Urinary retention due to benign prostatic hyperplasia CHF exacerbation Pneumonia Acute respiratory failure with hypoxia PMR (polymyalgia rheumatica) Urinary frequency Trochanteric bursitis, right hip Periprosthetic fracture around internal prosthetic right hip joint (Acute) Peripheral neuropathy Pulmonary hypertension Diastolic heart failure (Chronic) (HFpEF) heart failure with preserved ejection fraction Type 2 diabetes mellitus (Acute) Status post right knee replacement (Acute) Hx of congestive heart failure Chronic atrial fibrillation (Acute) Taking Xarelto COPD (chronic obstructive pulmonary disease) Elevated bilirubin Right knee DJD Benign essential hypertension (Chronic) Chronic obstructive pulmonary disease (Chronic) Gout (Chronic) Hypercholesterolemia (Chronic) Medical History (Updated 01/06/25 @ 15:32 by Indio Carvalho MD) History of cor pulmonale Other secondary pulmonary hypertension Echo/RHC 04/2023 Type II/III Follows with [facility] pulm. Per visit 04/2023, "Predominantly he has pulmonary hypertension is postcapillary due to diastolic heart failure. Treatment of this syndrome is maintaining an adequate volume status." Lumbar spinal stenosis DJD (degenerative joint disease) Hx of diabetic foot ulcer Hx of left foot ulcer "resolved" per patient- no active infection/ulcer Monitored/following with [facility] for ankle and foot care Venous insufficiency Osteoarthritis Diabetes Hyperlipidemia HTN (hypertension) Hx of gout History of COVID-19 (01/2023) Hospitalized x 3 days at [facility] AISHA (obstructive sleep apnea) BIPAP (compliant) Surgical History (Updated 12/30/24 @ 00:08 by Althea Walsh) Hx of total knee replacement 10/11/23 History of lumbar fusion (2008) Hx of cardiac catheterization (04/26/23) RHC- Significantly elevated pulmonary capillary wedge pressure. Significantly elevated pulmonary arterial pressure and pulmonary vascular resistance. Significantly elevated right ventricular end-diastolic pressure and right atrial pressure. Recommend continue diuresis for volume overload. Additional recommendations regarding elevated pulmonary vascular resistance per pulmonary medicine team. H/O total hip arthroplasty Right History of vasectomy Family History Mother Coronary heart disease Hypertension Diabetes Denies family history of Ovarian cancer Prostate cancer Myocardial infarction Breast cancer Colorectal cancer Social History Smoking Status: Former smoker Tobacco Type: Cigarettes Age Started Using Tobacco: 10; Age Quit Using Tobacco: 48; packs per day: 2.5; Second Hand Exposure: Yes; Do You Dip or Chew Tobacco: No; Hx Alcohol Use: No Hx Substance Use: No Preferred Language: Amharic Communication Ability: Effective Visual Impairment: No Limitations Weaver Needle Loom Required: No Beliefs That Will Affect Care: None marital status: Current Living Situation: Spouse Current Living Situation Comment: and brother in law. current occupational status: disabled Other Information That Helps Us Care for You: No Feels Safe at Home: Yes Safety Concerns: Feels Safe At This Time Childhood Exposure to Second-Hand Smoke: Yes Diet: DASH caffeine: Yes Seatbelt Use: always Sunscreen Use: No Assistive Devices: Cane, Glasses and Walker Assistive Devices Comment: glasses bedside Review of Systems 2 Review of Systems: All systems reviewed & are unremarkable except as noted in HPI & below Physical Exam 2 Constitutional: well developed; + not well nourished and no acute distress Eyes: + anicteric sclerae ENMT: external ear and nose normal, oropharynx normal Respiratory: + labored breathing and + uses accessory muscles; expiratory phase not prolonged and no stridor Auscultation: lungs clear to auscultation bilaterally, + breath sounds absent (bibasal) and + crackles (posteriorly) Cardiovascular: Rate/Rhythm: regular rate and + irregularly irregular Heart Sounds: normal S1 and normal S2 Extremities: + pedal edema (3+ pitting b/l equal appears much worse than on prior discharge) Gastrointestinal (Abdomen): Inspection/Auscultation: abdomen not distended Percussion/Palpation: abdomen soft; abdomen nontender, no guarding and abdomen not rigid Skin: Left pretibial ulcer per above picture, erythema of left leg without definitive cellulitic changes arising from ulcer, erythema appears more consistent with swollen areas Neurologic: Motor/Sensory: no tremor and no asterixis Psychiatric: Orientation: alert and oriented x 3 Results & Data Results & Data Vital Signs (Past 12 Hours) Vital Signs Temp Pulse Pulse Resp BP BP Pulse Ox 01/06/25 12:30 85 21 109/77 94 01/06/25 12:07 80 20 111/74 93 01/06/25 11:31 78 19 115/74 94 01/06/25 11:28 92 01/06/25 11:24 81 01/06/25 11:15 36.4 C L 84 12 109/66 75 L 01/06/25 11:15 75 L 01/06/25 11:15 36.4 C L 84 12 109/66 75 L O2 Del Method O2 Flow Rate 01/06/25 12:30 Oxymask 9 01/06/25 12:07 Oxymask 9 01/06/25 11:31 Oxymask 10 01/06/25 11:28 Oxymask 10 01/06/25 11:24 01/06/25 11:15 Room Air 01/06/25 11:15 Room Air 01/06/25 11:15 Room Air Laboratory Results Abnormal lab results 01/06/25 01/06/25 Range/Units 11:20 11:32 WBC 13.40 H (4.8-10.8) K/ul RBC 2.60 L (4.70-6.10) M/uL Hgb 8.3 L (14.0-18.0) g/dL Hct 25.8 L (42.0-52.0) % RDW Std Deviation 74.7 H (36.4-46.3) fL RDW Coeff of Marce 20.6 H (11.5-14.5) % Neut # (Auto) 10.97 H (1.40-6.50) K/uL Lymph # (Auto) 0.66 L (1.20-3.40) K/uL Mayes # (Auto) 1.33 H (0.11-0.59) K/uL PT 15.1 H (9.0-12.0) Seconds INR 1.5 H (0.9-1.1) VBG pCO2 53 H (38-50) mmHg BUN 134 H (6-23) mg/dl Creatinine 2.65 H (0.6-1.4) mg/dl BUN/Creatinine Ratio 50.6 H (10-20) Glucose 171 H (70-99(Fasting)) mg/dl ALT < 3 L (7-52) U/L B-Natriuretic Peptide 547 H (0-100) pg/ml Total Protein 5.8 L (6.0-8.3) gm/dl Albumin 2.6 L (3.4-5.0) gm/dl Urine Appearance Cloudy A (Clear) Urine Protein 2+ H (Negative) Urine Blood 3+ H (Negative) Ur Leukocyte Esterase 2+ H (Negative) Urine WBC (Auto) >50 H (0-5) /hpf Urine RBC (Auto) >20 H (0-2) /hpf U Hyaline Cast (Auto) 6-10 H (0-2) /lpf U Epithel Cells (Auto) 3-5 H (0-2) /hpf Diagnostic Findings SINGLE VIEW CHEST CLINICAL HISTORY: Sepsis FINDINGS: An AP, portable, upright chest radiograph is compared to study dated 12/19/2024 and correlated with chest CT dated 12/22/2024. The examination is degraded by portable technique and apical lordotic positioning. A right-sided PICC line is unchanged in position. The heart is enlarged noting atherosclerotic calcification of the thoracic aorta. There is pulmonary vascular congestion with interstitial edema. There are layering pleural effusions with dependent consolidation. Emphysematous changes observed. Calcified granulomas are again noted. No pneumothorax is seen. The skeletal structures are osteopenic. The bony thorax is grossly intact. IMPRESSION: 1. Cardiomegaly and emphysema with evidence of congestive failure and pulmonary edema. 2. Layering pleural effusions with bibasilar consolidation. Radiographic follow- up to resolution is recommended. Exam: Retroperitoneal ultrasound. History: Acute kidney insufficiency. Comparison: December 23, 2024. Findings: Right kidney measures 7.0 x 11.8 x 6.3 cm. No stone, mass or hydronephrosis. At least mild cortical volume loss. Left kidney measures 11.6 x 6.8 x 5.8 cm. This contains a hypoechoic through transmitting 2.1 x 2.0 x 3.1 cm nodule. This does not demonstrate color flow. No solid mass, stone or hydronephrosis. Mild cortical volume loss. Urinary bladder not evaluated on this exam. Technologist reports Wolfe catheter in place. Impression: Mild bilateral cortical volume loss with benign left renal cyst. Otherwise no findings to suggest source for patient's symptoms. Medications Administered ER Medications Given: Bumetanide 2mg IV ECG Rate (beats per minute): 82 Rhythm: atrial fibrillation Findings: no acute ischemic change Comparison ECG Date: from (December 07, 2024) Change: no significant change Code Status & VTE Plan Code Status Full VTE Prophylaxis Plan VTE Prophylaxis will be ordered: Yes PG Care Time/CCT Total # of Minutes Spent Total Time Spent with Patient: Total time spent is greater than 50% in coordination of care (as documented) at patient's floor/unit and/or counseling patient: Coding Level of Care Code 93020 INT INP/OBS CARE 3/75MIN Diagnoses Acute on chronic heart failure with preserved ejection fraction I50.33 CHLOE (acute kidney injury) N17.9 Uremia N19 Prosthetic joint infection T84.50XA Staphylococcus aureus bacteremia R78.81; B95.61 AISHA treated with BiPAP G47.33
[2025-01-06] MEDS: BUMETANIDE 2 MG in SYRINGE 0 ML IV ONE (14:36)
--- NOTE | 2025-01-06 14:37 | Ultrasound Report ---
Exam: Retroperitoneal ultrasound. History: Acute kidney insufficiency. Comparison: December 23, 2024. Findings: Right kidney measures 7.0 x 11.8 x 6.3 cm. No stone, mass or hydronephrosis. At least mild cortical volume loss. Left kidney measures 11.6 x 6.8 x 5.8 cm. This contains a hypoechoic through transmitting 2.1 x 2.0 x 3.1 cm nodule. This does not demonstrate color flow. No solid mass, stone or hydronephrosis. Mild cortical volume loss. Urinary bladder not evaluated on this exam. Technologist reports Watson catheter in place. Impression: Mild bilateral cortical volume loss with benign left renal cyst. Otherwise no findings to suggest source for patient's symptoms. Electronically signed by Ronnie Isaacs 01-06-2025 2:36 PM
[2025-01-06] MEDS ORDERED: GLUCAGON FOR INJ 1 MG VIAL SQ PRN (15:21)
[2025-01-06] MEDS ORDERED: DEXTROSE 50% 50 ML SYRINGE IV PRN (15:21)
[2025-01-06] MEDS ORDERED: GLUCOSE 10 TAB/TUBE PO PRN (15:21)
[2025-01-06] MEDS ORDERED: GLUCOSE 40% GEL 15 GM TUBE PO PRN (15:21)
[2025-01-06] MEDS ORDERED: CARBOHYDRATES FOR HYPOGLYCEMIA PO PRN (15:21)
[2025-01-06] MEDS: INSULIN ASPART PER UNIT CHARGE SC SCH (17:48)
[2025-01-06] MEDS: TAMSULOSIN HCL 0.4 MG CAP PO SCH (19:55)
[2025-01-06] MEDS: METOPROLOL TARTRATE 100 MG TAB PO SCH (19:55)
[2025-01-06] MEDS: ATORVASTATIN 10 MG TAB PO SCH (19:55)
[2025-01-06] MEDS ORDERED: LANTUS PER UNIT CHARGE SQ SCH (21:00)
--- NOTE | 2025-01-06 21:56 | Electrocardiogram Report ---
Test Reason : Blood Pressure : */* mmHG Vent. Rate : 82 BPM Atrial Rate : * BPM P-R Int : * ms QRS Dur : 98 ms QT Int : 366 ms P-R-T Axes : * 23 11 degrees QTcB Int : 427 ms Atrial fibrillation Cannot rule out Anterior infarct , age undetermined Abnormal ECG When compared with ECG of 07-Dec-2024 05:05, No significant change was found Confirmed by Fidel Trujillo ([id number]) on 01/06/2025 9:55:43 PM Referred By: REFERRED SELF Confirmed By: Fidel Trujillo
--- NOTE | 2025-01-07 08:00 | Pulmonary Consultation ---
Date of Consultation January 07, 2025 Assessment & Plan (1) Acute respiratory failure with hypoxia: (2) Pleural effusion: (3) AISHA (obstructive sleep apnea): (4) COPD (chronic obstructive pulmonary disease): (5) (HFpEF) heart failure with preserved ejection fraction: (6) Pulmonary hypertension: Plan CT chest 12/21/2024 personally reviewed: Centrilobular emphysema appreciated bilaterally Interlobular thickening appreciated in the upper lobes Left upper lobe granuloma Bilateral pleural effusion R>L Elevated right hemidiaphragm with dependent atelectasis of the right lower lobe Significant mediastinal and hilar lymphadenopathy, chronic 2D echo 12/06/2024: EF 60-65%, mild RV dilation, RVSP > 60 mmHg Spirometry 05/13/2023 personally reviewed: Moderate obstructive lung dysfunction FVC 3.92 L 76%, FEV1 2.07 L 54%, FEV1/FVC 53% --Acute hypoxic respiratory failure Respiratory BioFire negative for everything on 12/05/2024 BNP 547 Nasal MRSA negative, procalcitonin 0.16 --Bilateral pleural effusion Small to moderate on the right, minimal on the left No indication for thoracentesis right now --COPD with emphysema On Trelegy 100 at home Not in exacerbation --AISHA On BiPAP nightly --Pulmonary hypertension Combination of type II intensity --A-fib On Xarelto at home Plan: In/out: -1.9 L, urine output 2024 Chest x-ray from 01/06/2025 on personal review does show worsening of the right- sided pleural effusion compared to 12/21/2024 For the time being would recommend to continue with aggressive diuresis to keep the patient at least -1-1.5 L on a daily basis BiPAP nightly and as needed shortness of breath Bedside ultrasound showed small to moderate right-sided pleural effusion with compressive atelectasis of the right lower lobe Recommend incentive spirometry Case was discussed with RN at bedside along with primary team I spent more than 75 minutes looking in the chart, images, discussing the plan of care with the patient, RN as well as primary team Please note the above document was generated using voice recognition software. It may contain grammatical, syntax or spelling errors.Any formal questions or concerns about the content, text or information contained within the body of this dictation should be directly addressed to the provider for clarification. History of Present Illness Attending Physician: Indio Carvalho MD History of Present Illness 69-year-old male coming to the hospital for Past medical history: COPD with emphysema, pulmonary hypertension, AISHA on BiPAP, A-fib on Xarelto Pulmonary consulted for hypoxia and pleural effusion At the time of examination patient was not in any respite distress He was saturating 93-94% on 6 L nasal cannula He said he is compliant with his CPAP He also is compliant with his medications at home Denies any fever or chills No dysuria or diarrhea prior to coming to the hospital Denies any unusual headache No hemoptysis, denies any cough right now. Social history:60 pack-year smoking history, quit in 2004. Allergies Allergy/AdvReac Type Severity Reaction Status Date / Time dicyclomine [From Bentyl] Allergy Unknown CAN'T Verified 01/06/25 14:54 REMEMBER Home Medications Medication Instructions Recorded Confirmed Type albuterol sulfate 90 mcg/actuation 2 inh inhalation Q4H PRN shortness 03/18/23 01/06/25 Rx breath activated powder inhaler of breath or wheezing #1 ea oxygen #2 ea 04/28/23 10/26/24 Rx diltiazem HCl 180 mg 180 mg PO DAILY #90 caps 03/12/24 01/06/25 Rx capsule,extended release 24 hr fluticasone fur. 100 mcg-umeclid 1 inh inhalation DAILY #60 ea 03/12/24 01/06/25 Rx 62.5 mcg-vilant 25 mcg inhalat.powder (Trelegy Ellipta) atorvastatin 10 mg tablet 10 mg PO QPM #90 tabs 04/11/24 01/06/25 Rx furosemide 80 mg tablet 80 mg PO DAILY #180 tabs 04/11/24 01/06/25 Rx metoprolol tartrate 100 mg tablet 100 mg PO BID #180 tabs 04/11/24 01/06/25 Rx blood sugar diagnostic (OneTouch #100 ea 06/07/24 10/26/24 Rx Ultra Test strips) lancets #100 ea 06/07/24 10/26/24 Rx acetaminophen 500 mg tablet 500 mg PO Q4H PRN TEMP >100.5 12/05/24 01/06/25 History (Tylenol Extra Strength) cefazolin 2 gram intravenous 2 g IV Q8H 12/25/24 01/06/25 Rx solution diclofenac sodium 1 % topical gel 4 g EXT QID PRN Right knee pain 12/25/24 01/06/25 Rx (Voltaren Arthritis Pain) #100 grams tamsulosin 0.4 mg capsule 0.4 mg PO HS #30 caps 12/25/24 01/06/25 Rx acetaminophen 500 mg tablet 1,000 mg PO Q8H PRN Pain 01/06/25 01/06/25 History (Tylenol Extra Strength) furosemide 10 mg/mL injection 20 mg IV Q12H 01/06/25 01/06/25 History solution insulin aspart U-100 100 unit/mL 1 sliding scale dose subcut 01/06/25 01/06/25 History subcutaneous solution (Novolog USEASDIRECTD U-100 Insulin aspart) insulin glargine 100 unit/mL 5 unit subcut Q12H 01/06/25 01/06/25 History subcutaneous solution (Lantus U-100 Insulin) ondansetron 4 mg disintegrating 4 mg PO Q6H PRN NAUSEA/VOMITING 01/06/25 01/06/25 History tablet rivaroxaban 15 mg tablet (Xarelto) 15 mg PO DAILY 01/06/25 01/06/25 History sodium chloride 0.9 % (flush) 10 ml IV Q12H 01/06/25 01/06/25 History sodium chloride 1,000 mg soluble 1,000 mg PO DAILY 01/06/25 01/06/25 History tablet Patient History Medical History (Updated 01/07/25 @ 13:19 by J Carlos Nesbitt, ) History of cor pulmonale Other secondary pulmonary hypertension Echo/RHC 04/2023 Type II/III [place]s with [facility]. Per visit 04/2023, "Predominantly he has pulmonary hypertension is postcapillary due to diastolic heart failure. Treatment of this syndrome is maintaining an adequate volume status." Lumbar spinal stenosis DJD (degenerative joint disease) Hx of diabetic foot ulcer Hx of left foot ulcer "resolved" per patient- no active infection/ulcer Monitored/following with [facility] for ankle and foot care Venous insufficiency Osteoarthritis Diabetes Hyperlipidemia HTN (hypertension) Hx of gout History of COVID-19 (01/2023) Hospitalized x 3 days at [facility] AISHA (obstructive sleep apnea) BIPAP (compliant) Surgical History (Updated 12/30/24 @ 00:08 by Althea Walsh) Hx of total knee replacement 10/11/23 History of lumbar fusion (2008) Hx of cardiac catheterization (04/26/23) RHC- Significantly elevated pulmonary capillary wedge pressure. Significantly elevated pulmonary arterial pressure and pulmonary vascular resistance. Significantly elevated right ventricular end-diastolic pressure and right atrial pressure. Recommend continue diuresis for volume overload. Additional recommendations regarding elevated pulmonary vascular resistance per pulmonary medicine team. H/O total hip arthroplasty Right History of vasectomy Family History Mother Coronary heart disease Hypertension Diabetes Denies family history of Ovarian cancer Prostate cancer Myocardial infarction Breast cancer Colorectal cancer Social History Smoking Status: Former smoker Tobacco Type: Cigarettes Age Started Using Tobacco: 10; Age Quit Using Tobacco: 48; packs per day: 2.5; Second Hand Exposure: Yes; Do You Dip or Chew Tobacco: No; Hx Alcohol Use: No Hx Substance Use: No Preferred Language: Solomon Islander Communication Ability: Effective Visual Impairment: No Limitations Economic Historian Required: No Beliefs That Will Affect Care: None marital status: Current Living Situation: Spouse Current Living Situation Comment: and brother in law. current occupational status: disabled Feels Safe at Home: Yes Childhood Exposure to Second-Hand Smoke: Yes Diet: DASH caffeine: Yes Seatbelt Use: always Sunscreen Use: No Assistive Devices: BiPap, Cane, Walker and Other Review of Systems 2 Review of Systems: All systems reviewed & are unremarkable except as noted in HPI & below Physical Exam 2 Physical Exam: Constitutional: No acute distress HEENT: EOMI, PERRLA Respiratory system: Decreased air entry bilaterally, more decreased on the right, no wheeze, rhonchi, positive crackles bilaterally CVS: S1-S2 positive, no murmurs or gallops, irregular rhythm Abdomen: Soft, nontender, nondistended, positive bowel sounds x4 Extremities: +2 pulses bilaterally radialis/ dorsalis pedis, no cyanosis, +3 pitting edema bilateral lower extremity Neuro: Awake alert oriented x3 Psych: Normal mood and affect G/U: Positive Watson Skin: no rashes, warm and dry Lymphatic: no cervical or axillary lymphadenopathy Results & Data Results & Data Vital Signs (Past 12 Hours) Vital Signs Temp Pulse Pulse Pulse Resp BP Pulse Ox 01/07/25 07:23 36.4 C L 67 20 112/71 96 01/07/25 04:11 36.5 C 74 19 108/68 99 01/07/25 03:28 90 01/06/25 23:11 36.5 C 64 20 97/60 L 99 01/06/25 22:36 O2 Del Method O2 Flow Rate 01/07/25 07:23 BiPAP 13 01/07/25 04:11 BiPAP 01/07/25 03:28 01/06/25 23:11 BiPAP 01/06/25 22:36 Oxymask, BiPAP 11 Laboratory Results 01/06/25 11:20 01/06/25 11:20 PG Care Time/CCT Total # of Minutes Spent Total Time Spent with Patient: Total time spent is greater than 50% in coordination of care (as documented) at patient's floor/unit and/or counseling patient: Coding Level of Care Code 27886 INT INP/OBS CARE 3/75MIN Diagnoses Acute respiratory failure with hypoxia J96.01 Pleural effusion J90 AISHA (obstructive sleep apnea) G47.33 COPD (chronic obstructive pulmonary disease) J44.9 (HFpEF) heart failure with preserved ejection fraction I50.30 Pulmonary hypertension I27.20
[2025-01-07] MEDS: BUMETANIDE 2 MG in SYRINGE 0 ML IV SCH (08:15)
[2025-01-07] MEDS: FLUTICASONE FUROATE 100MCG 14 PUFFS/INHALER INH SCH (08:17)
[2025-01-07] MEDS: UMECLIDINIUM/VILANTEROL 62.5/25MCG 7 PUFFS/INHALER INH SCH (08:17)
[2025-01-07] MEDS: LANTUS PER UNIT CHARGE SQ SCH (08:25)
[2025-01-07 09:00] LABS: Hematocrit (blood only) 25.2 % (42.0-52.0); Hemoglobin 8.0 g/dL (14.0-18.0); Immature Granulocytes # (auto) 0.04 K/uL (0.01-0.20); Immature Granulocytes % (auto) 0.4 %; Mean Corpuscular Hemoglobin 31.7 pg (25.0-34.0); Mean Corpuscular Volume 100.0 fL (80.0-100.0); Platelet Count 307 K/uL (130-400); RDW Standard Deviation 74.2 fL (36.4-46.3); Red Blood Count 2.52 M/uL (4.70-6.10); White Blood Count 9.23 K/ul (4.8-10.8)
[2025-01-07] MEDS ORDERED: NON-FORMULARY MEDICATION (Fluticasone-Umeclidin-Vilanter [Trelegy Ellipta] 100-62.5-25 mcg INH SCH (09:00)
[2025-01-07 09:21] LABS: Anisocytosis Present; Basophilic Stippling 1+; Polychromasia 1+
[2025-01-07 09:23] LABS: Alanine Aminotransferase < 3 U/L (7-52); Albumin Globulin Ratio 0.9 (0.9-2); Albumin Level 2.7 gm/dl (3.4-5.0); Alkaline Phosphatase 91 U/L (34-104); Anion Gap 8 (3-11); Bilirubin,Total 0.3 mg/dl (0.2-1.0); Calcium 9.1 mg/dl (8.6-10.3); Carbon Dioxide 33 mmol/L (21-32); Chloride 100 mmol/L (98-107); Creatinine Clr Calc Pharmacy 36.0 ml/min; Globulin 3.0 gm/dl (2.5-4.0); Glucose 113 mg/dl (70-99(Fasting)); Potassium 4.2 mmol/L (3.5-5.1); Sodium 141 mmol/L (136-145); Total Protein 5.7 gm/dl (6.0-8.3); Uric Acid 7.1 mg/dl (2.6-7.2)
[2025-01-07 09:38] LABS: Blood Urea Nitrogen 138 mg/dl (6-23)
--- NOTE | 2025-01-07 10:00 | Nephrology Consultation ---
Date of Consultation January 07, 2025 Assessment & Plan (1) CHLOE (acute kidney injury): (2) Acute respiratory failure with hypoxia: (3) Staphylococcus aureus bacteremia: (4) Chronic anemia: Plan 69-year-old gentleman with recent admission at sepsis with MSSA bacteremia and right septic hip joint, has been on IV cefazolin, admitted with progressive shortness of breath, volume overload, pulmonary congestion and CHLOE with significantly elevated BUN and creatinine. Renal ultrasound unremarkable plan. Urinalysis with proteinuria, microscopic hematuria but no bacteriuria. Has been having decent urine output with net negative more than 2 L fluid IV diuretics. Volume status slightly improved although continues to be volume overloaded and specially with right-sided pleural effusion and pulmonary congestion. Acute kidney injury could be secondary to intravascular volume depletion with hypoalbuminemia although clinically stable since volume overloaded. Possibility for sepsis related GN remains as complements were quite low during last admission and kidney function has been progressively worsening since last admission. --Will hold Bumex today, continue to monitor intake and output closely -- If right-sided pleural effusion remains significant, may benefit from pleural tap -- Dose medications for eGFR less than 30. --Continue antibiotic as per ID recommendation -- check iron study, B12, folate --Considering anemia, hypoalbuminemia and progressive worsening of kidney function will check SPEP, UPEP Thank you for allowing me to participate in your patient's care. It was a pleasure to see Vinnie. History of Present Illness Reason for Consultation: Acute kidney injury with history of CKD, hyponatremia. Attending Physician: Indio Carvalho MD History of Present Illness Mr. Madhu Fermin is a 69-year-old male with past medical history significant for hypertension, diabetes, A-fib, COPD,PMR, peripheral neuropathy, gout, and hyperlipidemia, admitted to the hospital with shortness of breath, respiratory failure with volume overload. Nephrology consult was requested for management of CHLOE and hyponatremia while in hospital. EMR records were reviewed in detail during patient's visit. Madhu presented to ER on 01/06/25 with SOB, hypoxia and volume overload. He recently had prolonged hospitalization from 12/05/24 to 12/25/24 with sepsis with MSSA bacteremia and right hip prosthetic joint. Blood culture became negative on 12/07/2024. Eventually he was [facility] on 12/25/2024 with a PICC line and plan to continue cefazolin through 01/28/2025. Has increase in baseline kidney function, creatinine 1.1 to 1.3 mg/dl. During last hospitalization he developed CHLOE and hyponatremia thought to be related to sepsis. On discharge creatinine was 2.1 mg/dl. He was brought to ER yesterday from [facility] with progressive shortness of breath, hypoxia and volume overload. Started on Bumex 2 mg IV twice a day, has been having great urine output, net negative almost 2 L since admission. He reports significant improvement in his shortness of breath. Admission lab was notable for creatinine of 2.7 and BUN 134 and repeat labs this morning showed BUN/creatinine staying relatively stable. Chest x-ray showed pulmonary vascular congestion and bilateral pleural effusion right more than left. BNP was elevated at 568. 2D echo in November showed EF 60 to 65%. Hemoglobin has been low at 8-8.5. Albumin low at 2.7. Renal ultrasound with no postrenal obstruction. Urinalysis from a Watson sample showed no bacteriuria but noted to have proteinuria and microscopic hematuria. Complements were low during previous hospitalization. He reports voiding decent amount prior to coming to hospital. Denies diarrhea. Reports some improvement in shortness of breath. Blood pressure has been relatively low. Has complex past medical history including hypertension, diabetes, COPD with previous history of smoking, A fib. During last hospitalization he developed urinary retention thought to be related to duloxetine, it was discontinued and eventually he has been voiding without difficulty. He was previously on lisinopril, Jardiance, spironolactone and metformin and all of those were stopped during last hospitalization. He reports slight improvement in shortness of breath although overall feels poorly. Denies any specific symptoms. Blood pressure stable. Allergies Allergy/AdvReac Type Severity Reaction Status Date / Time dicyclomine [From Bentyl] Allergy Unknown CAN'T Verified 01/06/25 14:54 REMEMBER Home Medications Medication Instructions Recorded Confirmed Type albuterol sulfate 90 mcg/actuation 2 inh inhalation Q4H PRN shortness 03/18/23 01/06/25 Rx breath activated powder inhaler of breath or wheezing #1 ea oxygen #2 ea 04/28/23 10/26/24 Rx diltiazem HCl 180 mg 180 mg PO DAILY #90 caps 03/12/24 01/06/25 Rx capsule,extended release 24 hr fluticasone fur. 100 mcg-umeclid 1 inh inhalation DAILY #60 ea 03/12/24 01/06/25 Rx 62.5 mcg-vilant 25 mcg inhalat.powder (Trelegy Ellipta) atorvastatin 10 mg tablet 10 mg PO QPM #90 tabs 04/11/24 01/06/25 Rx furosemide 80 mg tablet 80 mg PO DAILY #180 tabs 04/11/24 01/06/25 Rx metoprolol tartrate 100 mg tablet 100 mg PO BID #180 tabs 04/11/24 01/06/25 Rx blood sugar diagnostic (OneTouch #100 ea 06/07/24 10/26/24 Rx Ultra Test strips) lancets #100 ea 06/07/24 10/26/24 Rx acetaminophen 500 mg tablet 500 mg PO Q4H PRN TEMP >100.5 12/05/24 01/06/25 History (Tylenol Extra Strength) cefazolin 2 gram intravenous 2 g IV Q8H 12/25/24 01/06/25 Rx solution diclofenac sodium 1 % topical gel 4 g EXT QID PRN Right knee pain 12/25/24 01/06/25 Rx (Voltaren Arthritis Pain) #100 grams tamsulosin 0.4 mg capsule 0.4 mg PO HS #30 caps 12/25/24 01/06/25 Rx acetaminophen 500 mg tablet 1,000 mg PO Q8H PRN Pain 01/06/25 01/06/25 History (Tylenol Extra Strength) furosemide 10 mg/mL injection 20 mg IV Q12H 01/06/25 01/06/25 History solution insulin aspart U-100 100 unit/mL 1 sliding scale dose subcut 01/06/25 01/06/25 History subcutaneous solution (Novolog USEASDIRECTD U-100 Insulin aspart) insulin glargine 100 unit/mL 5 unit subcut Q12H 01/06/25 01/06/25 History subcutaneous solution (Lantus U-100 Insulin) ondansetron 4 mg disintegrating 4 mg PO Q6H PRN NAUSEA/VOMITING 01/06/25 01/06/25 History tablet rivaroxaban 15 mg tablet (Xarelto) 15 mg PO DAILY 01/06/25 01/06/25 History sodium chloride 0.9 % (flush) 10 ml IV Q12H 01/06/25 01/06/25 History sodium chloride 1,000 mg soluble 1,000 mg PO DAILY 01/06/25 01/06/25 History tablet Patient History Medical History (Updated 01/07/25 @ 10:16 by Elsie Potter MD) History of cor pulmonale Other secondary pulmonary hypertension Echo/RHC 04/2023 Type II/III Follows with [facility] [place] pulm. Per visit 04/2023, "Predominantly he has pulmonary hypertension is postcapillary due to diastolic heart failure. Treatment of this syndrome is maintaining an adequate volume status." Lumbar spinal stenosis DJD (degenerative joint disease) Hx of diabetic foot ulcer Hx of left foot ulcer "resolved" per patient- no active infection/ulcer Monitored/following with [facility] for ankle and foot care Venous insufficiency Osteoarthritis Diabetes Hyperlipidemia HTN (hypertension) Hx of gout History of COVID-19 (01/2023) Hospitalized x 3 days at [facility] ASIHA (obstructive sleep apnea) BIPAP (compliant) Surgical History (Updated 12/30/24 @ 00:08 by Althea Walsh) Hx of total knee replacement 10/11/23 History of lumbar fusion (2008) Hx of cardiac catheterization (04/26/23) RHC- Significantly elevated pulmonary capillary wedge pressure. Significantly elevated pulmonary arterial pressure and pulmonary vascular resistance. Significantly elevated right ventricular end-diastolic pressure and right atrial pressure. Recommend continue diuresis for volume overload. Additional recommendations regarding elevated pulmonary vascular resistance per pulmonary medicine team. H/O total hip arthroplasty Right History of vasectomy Family History Mother Coronary heart disease Hypertension Diabetes Denies family history of Ovarian cancer Prostate cancer Myocardial infarction Breast cancer Colorectal cancer Social History Smoking Status: Former smoker Tobacco Type: Cigarettes Age Started Using Tobacco: 10; Age Quit Using Tobacco: 48; packs per day: 2.5; Second Hand Exposure: Yes; Do You Dip or Chew Tobacco: No; Hx Alcohol Use: No Hx Substance Use: No Preferred Language: Indonesian Communication Ability: Effective Visual Impairment: No Limitations Circular Tank Cooper Required: No Beliefs That Will Affect Care: None marital status: Current Living Situation: Spouse Current Living Situation Comment: and brother in law. current occupational status: disabled Feels Safe at Home: Yes Childhood Exposure to Second-Hand Smoke: Yes Diet: DASH caffeine: Yes Seatbelt Use: always Sunscreen Use: No Assistive Devices: Cane, Glasses and Walker Review of Systems Review of Systems: Detailed review of system was done and pertinent positives and negatives are mentioned in HPI. Physical Exam Constitutional: WD/WN, vitals as above + ill appearing; no acute distress Eyes: + anicteric sclerae Neck: normal visual inspection Respiratory: Auscultation: + diminished lung sounds and + rales Cardiovascular: Rate/Rhythm: regular rate and regular rhythm Heart Sounds: normal S1 and normal S2 Extremities: + edema Gastrointestinal (Abdomen): Inspection/Auscultation: abdomen normal to inspection Percussion/Palpation: abdomen soft; abdomen nontender Skin: + erythema Neurologic: no focal motor deficits Psychiatric: Orientation: alert and oriented x 3 Affect: euthymic affect Results & Data Vital Signs (Past 12 Hours) Vital Signs Temp Pulse Pulse Pulse Resp BP Pulse Ox 01/07/25 07:23 36.4 C L 67 20 112/71 96 01/07/25 04:11 36.5 C 74 19 108/68 99 01/07/25 03:28 90 01/06/25 23:11 36.5 C 64 20 97/60 L 99 01/06/25 22:36 O2 Del Method O2 Flow Rate 01/07/25 07:23 BiPAP 13 01/07/25 04:11 BiPAP 01/07/25 03:28 01/06/25 23:11 BiPAP 01/06/25 22:36 Oxymask, BiPAP 11 PG Care Time/CCT Total # of Minutes Spent Total Time Spent with Patient: Total time spent is greater than 50% in coordination of care (as documented) at patient's floor/unit and/or counseling patient: Coding Level of Care Code 56899 INT INP/OBS CARE 375MIN Diagnoses CHLOE (acute kidney injury) N17.9 Acute respiratory failure with hypoxia J96.01 Staphylococcus aureus bacteremia R78.81; B95.61 Chronic anemia D64.9
[2025-01-07 11:50] LABS: Iron 24 mcg/dl (35-175); Total Iron Binding Cap Calc 263 mcg/dl (250-450); Transferrin 188 mg/dl (200-360); Transferrin (FE) Percent Satur 9 % (20-50)
[2025-01-07 12:41] LABS: Folate (Folic Acid),Ser orPlas 10.61 ng/ml (>5.38)
[2025-01-07 12:42] LABS: Vitamin B12 629.0 pg/ml (180-914)
--- NOTE | 2025-01-07 13:02 | Surgery Consultation ---
Date of Consultation January 07, 2025 Assessment & Plan (1) Abscess of sacrum: This will need incised and drained and probably packed. He just ate a full lunch so we will put on the operating schedule for tomorrow. We discussed potential risks as well as options. He agrees to the plan. (2) Acute on chronic renal insufficiency: (3) Prosthetic joint infection: (4) Acute on chronic heart failure with preserved ejection fraction: (5) PMR (polymyalgia rheumatica): History of Present Illness Attending Physician: Indio Carvalho MD History of Present Illness Consulted for sacral decub wound. pt was admitted last month for sepsis/joint infection. He was ultimately discharged to [facility]. Recently readmitted primarily for cardiac issues. He does have some pain near his sacrum with some fluctuance. This has been an ongoing issue. Allergies Allergy/AdvReac Type Severity Reaction Status Date / Time dicyclomine [From Bentyl] Allergy Unknown CAN'T Verified 01/06/25 14:54 REMEMBER Home Medications Medication Instructions Recorded Confirmed Type albuterol sulfate 90 mcg/actuation 2 inh inhalation Q4H PRN shortness 03/18/23 01/06/25 Rx breath activated powder inhaler of breath or wheezing #1 ea oxygen #2 ea 04/28/23 10/26/24 Rx diltiazem HCl 180 mg 180 mg PO DAILY #90 caps 03/12/24 01/06/25 Rx capsule,extended release 24 hr fluticasone fur. 100 mcg-umeclid 1 inh inhalation DAILY #60 ea 03/12/24 01/06/25 Rx 62.5 mcg-vilant 25 mcg inhalat.powder (Trelegy Ellipta) atorvastatin 10 mg tablet 10 mg PO QPM #90 tabs 04/11/24 01/06/25 Rx furosemide 80 mg tablet 80 mg PO DAILY #180 tabs 04/11/24 01/06/25 Rx metoprolol tartrate 100 mg tablet 100 mg PO BID #180 tabs 04/11/24 01/06/25 Rx blood sugar diagnostic (OneTouch #100 ea 06/07/24 10/26/24 Rx Ultra Test strips) lancets #100 ea 06/07/24 10/26/24 Rx acetaminophen 500 mg tablet 500 mg PO Q4H PRN TEMP >100.5 12/05/24 01/06/25 History (Tylenol Extra Strength) cefazolin 2 gram intravenous 2 g IV Q8H 12/25/24 01/06/25 Rx solution diclofenac sodium 1 % topical gel 4 g EXT QID PRN Right knee pain 12/25/24 01/06/25 Rx (Voltaren Arthritis Pain) #100 grams tamsulosin 0.4 mg capsule 0.4 mg PO HS #30 caps 12/25/24 01/06/25 Rx acetaminophen 500 mg tablet 1,000 mg PO Q8H PRN Pain 01/06/25 01/06/25 History (Tylenol Extra Strength) furosemide 10 mg/mL injection 20 mg IV Q12H 01/06/25 01/06/25 History solution insulin aspart U-100 100 unit/mL 1 sliding scale dose subcut 01/06/25 01/06/25 History subcutaneous solution (Novolog USEASDIRECTD U-100 Insulin aspart) insulin glargine 100 unit/mL 5 unit subcut Q12H 01/06/25 01/06/25 History subcutaneous solution (Lantus U-100 Insulin) ondansetron 4 mg disintegrating 4 mg PO Q6H PRN NAUSEA/VOMITING 01/06/25 01/06/25 History tablet rivaroxaban 15 mg tablet (Xarelto) 15 mg PO DAILY 01/06/25 01/06/25 History sodium chloride 0.9 % (flush) 10 ml IV Q12H 01/06/25 01/06/25 History sodium chloride 1,000 mg soluble 1,000 mg PO DAILY 01/06/25 01/06/25 History tablet Patient History Medical History (Updated 01/07/25 @ 13:19 by J Carlos Nesbitt, ) History of cor pulmonale Other secondary pulmonary hypertension Echo/RHC 04/2023 Type II/III [place] [facility]. Per visit 04/2023, "Predominantly he has pulmonary hypertension is postcapillary due to diastolic heart failure. Treatment of this syndrome is maintaining an adequate volume status." Lumbar spinal stenosis DJD (degenerative joint disease) Hx of diabetic foot ulcer Hx of left foot ulcer "resolved" per patient- no active infection/ulcer Monitored/following with [facility] for ankle and foot care Venous insufficiency Osteoarthritis Diabetes Hyperlipidemia HTN (hypertension) Hx of gout History of COVID-19 (01/2023) Hospitalized x 3 days at [facility] A[facility]HA (obstructive sleep apnea) BIPAP (compliant) Surgical History (Updated 12/30/24 @ 00:08 by Althea Walsh) Hx of total knee replacement 10/11/23 History of lumbar fusion (2008) Hx of cardiac catheterization (04/26/23) RHC- Significantly elevated pulmonary capillary wedge pressure. Significantly elevated pulmonary arterial pressure and pulmonary vascular resistance. Significantly elevated right ventricular end-diastolic pressure and right atrial pressure. Recommend continue diuresis for volume overload. Additional recommendations regarding elevated pulmonary vascular resistance per pulmonary medicine team. H/O total hip arthroplasty Right History of vasectomy Family History Mother Coronary heart disease Hypertension Diabetes Denies family history of Ovarian cancer Prostate cancer Myocardial infarction Breast cancer Colorectal cancer Social History Smoking Status: Former smoker Tobacco Type: Cigarettes Age Started Using Tobacco: 10; Age Quit Using Tobacco: 48; packs per day: 2.5; Second Hand Exposure: Yes; Do You Dip or Chew Tobacco: No; Hx Alcohol Use: No Hx Substance Use: No Preferred Language: Wallisian Communication Ability: Effective Visual Impairment: No Limitations [place] Former Required: No Beliefs That Will Affect Care: None marital status: Current Living Situation: Spouse Current Living Situation Comment: and brother in law. current occupational status: disabled Feels Safe at Home: Yes Childhood Exposure to Second-Hand Smoke: Yes Diet: DASH caffeine: Yes Seatbelt Use: always Sunscreen Use: No Assistive Devices: Cane, Glasses and Walker Physical Exam Constitutional: WD/WN, vitals as above no acute distress and not ill appearing Eyes: PERRL, conjunctivae normal, anicteric sclerae EOM intact bilaterally ENMT: external ear and nose normal, oropharynx normal Ears: no hearing impairment Neck: trachea midline, no thyromegaly Gastrointestinal (Abdomen): normal bowel sounds, soft, nontender, no hepatosplenomegaly Musculoskeletal: On his low back in the midline near the gluteal crease there is a probably 4 to 5 cm fluctuant area. There is some tunneling and some purulent drainage. Skin: no rashes, warm and dry Psychiatric: Orientation: alert, oriented x 3 and cooperative Results & Data Vital Signs (Past 12 Hours) Vital Signs Temp Pulse Pulse Pulse Resp BP Pulse Ox 01/07/25 11:41 94 01/07/25 11:23 36.3 C L 75 22 111/64 93 01/07/25 10:17 01/07/25 07:23 36.4 C L 67 20 112/71 96 01/07/25 07:00 68 01/07/25 04:11 36.5 C 74 19 108/68 99 01/07/25 03:28 90 O2 Del Method O2 Flow Rate 01/07/25 11:41 Nasal Cannula 4 01/07/25 11:23 Oxymask 4 01/07/25 10:17 Oxymask 4 01/07/25 07:23 BiPAP 13 01/07/25 07:00 01/07/25 04:11 BiPAP 01/07/25 03:28 PG Care Time/CCT Total # of Minutes Spent Total Time Spent with Patient: Total time spent is greater than 50% in coordination of care (as documented) at patient's floor/unit and/or counseling patient: Coding Level of Care Code 42178 IN/OBS CONSULT LVL 2,35M Diagnoses Abscess of sacrum M46.28 Acute on chronic renal insufficiency N28.9; N18.9 Prosthetic joint infection T84.50XA Acute on chronic heart failure with preserved ejection fraction I50.33 PMR (polymyalgia rheumatica) M35.3
[2025-01-07 14:13] LABS: Ferritin 123.6 ng/ml (8-388)
[2025-01-07] MEDS: ACETAMINOPHEN 325 MG TAB PO PRN (20:51)
--- NOTE | 2025-01-07 23:05 | Hospitalist Progress Note ---
Date of Service January 07, 2025 Assessment & Plan (1) Acute on chronic heart failure with preserved ejection fraction: (2) CHLOE (acute kidney injury): (3) Uremia: (4) Prosthetic joint infection: (5) Staphylococcus aureus bacteremia: (6) AISHA treated with BiPAP: (7) Abscess of sacrum: (8) Chronic anemia: Plan 69yo male with recent MSSA bacteremia from right hip collection presents to the ER from [facility] due to leg swelling, hypoxia and shortness of breath #Acute on chronic heart failure with preserved ejection fraction / CHLOE / uremia / Acute respiratory failure with hypoxia Baseline O2 on room air at rest although on last admission minimal exertion caused him to need 2LPM O2, needs to wear BiPAP at night and while napping Bumex 2mg IV daily (currently on hold from nephrology but had this today and yesterday) Possibly will benefit from thoracentesis and will place Xarelto on hold to allow for this if needed - pulmonology consulted and holding off this currently, will discuss this further tomorrow Strict I&Os -ve 1905ml, Daily standing weights weight up 5-10kg from dry weight Appreciate nephrology consult. Diuretics placed on hold. Agree a significant degree of 3rd spacing is albumin and at risk of intravascular depletion if we go too fast related but still significantly hypervolemic from last discharge and would likely still benefit from diuresis perhaps using IV albumin with diuretics #Left lower extremity ulcer Suspected erythema from leg swelling, no definitive surrounding cellulitis and swelling is equal to right side therefore will elect to monitor for now, picture in H&P, rather than escalate antibiotics Surface wound culture taken #Sacral abscess Overlying ulcer now appears to have tunneling to underlying cyst/abscess General surgery consulted and planning on I&D tomorrow. NPO after midnight #Staph aureus bacteremia Diagnosed last admission with source right hip - due to medical complexity and other factors, no plans for I/D or explantation of right hip hardware Continue cefazolin 2g IV q8h (renally dosed) with last date 01/28, planning on cefadroxil following this -RUE PICC line in place #BPH with urinary retention -prior admission wolfe catheter removed prior to discharge, he reports placed back the last couple of days -consider trial without catheter prior to discharge but given current CHLOE will continue for accurate I&Os -continue tamsulosin #Nondisplaced right femoral periprosthetic intertrochanteric fracture Diagnosed last admission WBAT #Chronic anemia Likely exacerbated by frequent lab draws, routine anemia workup with AM labs #Toe ulcers -cont local wound care #Chronic atrial fibrillation/hypertension- -Xarelto on hold for possible thoracentesis -cont metoprolol titrate. Decreased diltiazem due to CHLOE, will hold tomorrow to see if his HR is ok without this to hopefully improve his blood pressure and therefore renal perfusion #COPD - -no exacerbation at this time -Duonebs PRN -Continue Trelegy #Type 2 Diabetes mellitus- -Stopped Jardiance due to CHLOE last admission -HbA1C 6.7 -NovoLog SSI, added lantus but glucose 92 therefore will reduce to 5 units daily -BSGs controlled #Hyperlipidemia -Continue atorvastatin #Chronic gout -allopurinol held at [facility], uric acid 7.1, will restart reduced dose -no flare at this time #AISHA -cont home BIPAP / HS and while napping, patient using his home device VTE Prophylaxis - Xarelto (renally dosed, currently on hold for possible thoracentesis) Disposition - continue on PCU Admission and Anticipated Discharge Date Admission Date: January 06, 2025 Subjective Feels improved from admission with shortness of breath and oxygen requirement is down. Afebrile. Physical Exam Constitutional: well developed; + not well nourished and no acute distress Eyes: + anicteric sclerae Respiratory: normal respiratory effort; no respiratory distress, expiratory phase not prolonged and no stridor Auscultation: lungs clear to auscultation bilaterally, + breath sounds absent (bibasal) and + crackles (posteriorly) Cardiovascular: Rate/Rhythm: regular rate and + irregularly irregular Heart Sounds: normal S1 and normal S2 Extremities: + pedal edema (3+ pitting b/l equal appears much worse than on prior discharge) Gastrointestinal (Abdomen): Inspection/Auscultation: abdomen not distended Percussion/Palpation: abdomen soft; abdomen nontender, no guarding and abdomen not rigid Skin: Sacral ulcer now unstageable from prior discharge as appears to communicate with underlying cyst/abscess - given significant shortness of breath this was not examined on admission Neurologic: Motor/Sensory: no tremor and no asterixis Psychiatric: Orientation: alert and oriented x 3 Results & Data Results & Data Vital Signs (Past 12 Hours) Vital Signs Temp Pulse Pulse Resp BP Pulse Ox Pulse Ox 01/07/25 20:00 01/07/25 19:17 36.7 C 85 110/71 92 01/07/25 15:50 36.3 C L 68 22 106/61 94 01/07/25 15:34 01/07/25 15:04 99 01/07/25 14:13 92 01/07/25 13:36 67 01/07/25 11:41 94 01/07/25 11:23 36.3 C L 75 22 111/64 93 Pulse Ox Pulse Ox O2 Del Method O2 Del Method O2 Flow Rate O2 Flow Rate O2 Flow Rate 01/07/25 20:00 Nasal Cannula 6 01/07/25 19:17 BiPAP 01/07/25 15:50 Nasal Cannula 6 01/07/25 15:34 92 93 4 01/07/25 15:04 BiPAP 11 01/07/25 14:13 Nasal Cannula 6 01/07/25 13:36 01/07/25 11:41 Nasal Cannula 4 01/07/25 11:23 Oxymask 4 O2 Flow Rate 01/07/25 20:00 01/07/25 19:17 01/07/25 15:50 01/07/25 15:34 4 01/07/25 15:04 01/07/25 14:13 01/07/25 13:36 01/07/25 11:41 01/07/25 11:23 PG Care Time/CCT Total # of Minutes Spent Total Time Spent with Patient: Total time spent is greater than 50% in coordination of care (as documented) at patient's floor/unit and/or counseling patient: Coding Level of Care Code 30370 SUB INP/OBS CARE 3/50MIN Diagnoses Acute on chronic heart failure with preserved ejection fraction I50.33 CHLOE (acute kidney injury) N17.9 Uremia N19 Prosthetic joint infection T84.50XA Staphylococcus aureus bacteremia R78.81; B95.61 AISHA treated with BiPAP G47.33 Abscess of sacrum M46.28 Chronic anemia D64.9
[2025-01-08 05:56] LABS: Hematocrit (blood only) 23.5 % (42.0-52.0); Hemoglobin 7.5 g/dL (14.0-18.0); Mean Corpuscular Hemoglobin 31.5 pg (25.0-34.0); Mean Corpuscular Volume 98.7 fL (80.0-100.0); Platelet Count 288 K/uL (130-400); RDW Standard Deviation 71.2 fL (36.4-46.3); Red Blood Count 2.38 M/uL (4.70-6.10); White Blood Count 7.76 K/ul (4.8-10.8)
[2025-01-08 06:32] LABS: Blood Urea Nitrogen 140.0 mg/dl (6-23)
[2025-01-08] MEDS: LANTUS PER UNIT CHARGE SQ SCH (08:14)
--- NOTE | 2025-01-08 08:57 | Pulmonology Progress Note ---
Date of Service January 08, 2025 Assessment & Plan (1) Acute respiratory failure with hypoxia: (2) COPD (chronic obstructive pulmonary disease): (3) (HFpEF) heart failure with preserved ejection fraction: (4) Pulmonary hypertension: Plan CT chest 12/21/2024 personally reviewed: Centrilobular emphysema appreciated bilaterally Interlobular thickening appreciated in the upper lobes Left upper lobe granuloma Bilateral pleural effusion R>L Elevated right hemidiaphragm with dependent atelectasis of the right lower lobe Significant mediastinal and hilar lymphadenopathy, chronic 2D echo 12/06/2024: EF 60-65%, mild RV dilation, RVSP > 60 mmHg Spirometry 05/13/2023 personally reviewed: Moderate obstructive lung dysfunction FVC 3.92 L 76%, FEV1 2.07 L 54%, FEV1/FVC 53% --Acute hypoxic respiratory failure Respiratory BioFire negative for everything on 12/05/2024 BNP 547 Nasal MRSA negative, procalcitonin 0.16 --Bilateral pleural effusion Small to moderate on the right, minimal on the left No indication for thoracentesis right now --COPD with emphysema On Trelegy 100 at home Not in exacerbation --AISHA On BiPAP nightly --Pulmonary hypertension Combination of type II intensity --A-fib On Xarelto at home Admission and Anticipated Discharge Date Admission Date: January 06, 2025 Supervising Physician Co-Signing Physician Notes I saw and evaluated the patient with JOSE Mejia, and agree with findings and plan as documented in the note. Patient seen and examined at bedside. No acute distress, no dressing was overnight He was saturating 85-86% on 3 L nasal cannula while sitting on the chair, increase it to 4 L He has been diuresing but the diuretics have been on hold because of his BUN being on the higher side Denied any chest pain He supposed to have debridement done today for his sacral wound. Denies any nausea or vomiting Constitutional: No acute distress HEENT: EOMI, PERRLA Respiratory system: Decreased air entry bilaterally, more decreased on the right, no wheeze, rhonchi, positive crackles bilaterally CVS: S1-S2 positive, no murmurs or gallops, irregular rhythm Abdomen: Soft, nontender, nondistended, positive bowel sounds x4 Extremities: +2 pulses bilaterally radialis/ dorsalis pedis, no cyanosis, +3 pitting edema bilateral lower extremity Neuro: Awake alert oriented x3 Psych: Normal mood and affect G/U: Positive Watson Plan: In/out: -2.5 L since coming to the hospital Patient will benefit from diuresis but unfortunately his BUN is in the 140s and diuresis is being on hold right now. Continue with BiPAP nightly and as needed shortness of breath Bedside ultrasound showed moderate right-sided pleural effusion with compressive atelectasis of the right lower lobe, will order thoracentesis to be done tomorrow Xarelto has been on hold for more than 48 hours Recommend incentive spirometry Case was discussed with RN at bedside along with primary team as well as IR I spent more than 50 minutes looking in the chart, images, discussing the plan of care with the patient, RN as well as primary team Please note the above document was generated using voice recognition software. It may contain grammatical, syntax or spelling errors.Any formal questions or concerns about the content, text or information contained within the body of this dictation should be directly addressed to the provider for clarification. Subjective Patient diuresed with Bumex and is -666ml in the last 24 hours. Is negative 2.5 liters since admission. Further diuresis held this am due to uremia. There is persistent 3+ pitting edema in the b/l lower lobes. Patient subjectively feels his breathing is at his baseline. He denies SOB and cough. Patient on 5L NC this am and SpO2 100%. Weaned to 3L nasal cannula. Will hold off on thoracentesis at this time as likely will not improve patient's breathing further. Plan for OR today with surgery for sacral wound debridement. Review of Systems 2 Review of Systems: All systems reviewed & are unremarkable except as noted in HPI & below Physical Exam 2 Physical Exam: VITALS: Reviewed. WEIGHT/BMI reviewed. GEN: Pleasant, well-developed, NAD. PSYCH: Good Judgment. AOx3. Normal memory, mood, and affect. HEENT -Head: NC/AT; -Eyes: PERRL, EOMI. No discharge or redn ess; -Ears: External ears are normal. -Nose: Normal nares. NECK: Supple, with no masses. CV: RRR, no m/r/g. LUNGS: CTAB, no w/r/c. ABD: N/A : N/A SKIN: Warm, well perfused. No skin rashes or abnormal lesions. MSK: No deformities, Normal gait. EXT: No clubbing, cyanosis, or edema. NEURO: Normal muscle strength and tone. No focal deficits. Results & Data Results & Data Vital Signs (Past 12 Hours) Vital Signs Temp Pulse Pulse Resp BP Pulse Ox O2 Del Method 01/08/25 07:14 36.4 C L 74 18 113/59 L 99 Nasal Cannula 01/08/25 02:53 36.4 C L 72 18 108/73 96 BiPAP 01/07/25 23:40 36.6 C 75 18 98/56 L 96 CPAP 01/07/25 23:00 74 Laboratory Results 01/08/25 05:34 01/08/25 05:34 Abnormal Lab Results 01/07/25 01/07/25 01/07/25 08:40 11:39 16:13 WBC 9.23 RBC 2.52 L Hgb 8.0 L Hct 25.2 L MCV 100.0 MCH 31.7 MCHC 31.7 L RDW Std Deviation 74.2 H RDW Coeff of Marce 20.7 H Plt Count 307 MPV 10.1 Immature Gran % (Auto) 0.4 Neut % (Auto) 81.8 Lymph % (Auto) 5.7 Norman % (Auto) 9.4 Eos % (Auto) 2.0 Baso % (Auto) 0.7 Neut # (Auto) 7.55 H Lymph # (Auto) 0.53 L Norman # (Auto) 0.87 H Eos # (Auto) 0.18 Baso # (Auto) 0.06 Immature Gran # (Auto) 0.04 Absolute Nucleated RBC 0.03 Nucleated RBC % (auto) 0.3 Polychromasia 1+ Basophilic Stippling 1+ Anisocytosis Present ESR 44 H Sodium 141 Potassium 4.2 Chloride 100 Carbon Dioxide 33 H Anion Gap 8 BUN 138 H Creatinine 2.58 H Est Cr Clr Drug Dosing 36.0 eGFR 25.80 BUN/Creatinine Ratio 53.5 H Glucose 113 H POC Glucose 127 H 171 H Uric Acid 7.1 Calcium 9.1 Iron 24 L TIBC 263 Transferrin 188 L Transferrin % Sat 9 L Ferritin 123.6 Total Bilirubin 0.3 AST 13 ALT < 3 L Alkaline Phosphatase 91 C-Reactive Protein 2.33 H B-Natriuretic Peptide Total Protein 5.7 L Albumin 2.7 L Globulin 3.0 Albumin/Globulin Ratio 0.9 Vitamin B12 629 Folate 10.61 01/07/25 01/08/25 01/08/25 20:28 05:34 07:13 WBC 7.76 RBC 2.38 L Hgb 7.5 L Hct 23.5 L MCV 98.7 MCH 31.5 MCHC 31.9 L RDW Std Deviation 71.2 H RDW Coeff of Marce 19.9 H Plt Count 288 MPV 10.4 Immature Gran % (Auto) Neut % (Auto) Lymph % (Auto) Norman % (Auto) Eos % (Auto) Baso % (Auto) Neut # (Auto) Lymph # (Auto) Norman # (Auto) Eos # (Auto) Baso # (Auto) Immature Gran # (Auto) Absolute Nucleated RBC 0.02 Nucleated RBC % (auto) 0.3 Polychromasia Basophilic Stippling Anisocytosis ESR Sodium Potassium Chloride Carbon Dioxide Anion Gap BUN 140 H Creatinine Est Cr Clr Drug Dosing eGFR BUN/Creatinine Ratio 51.7 H Glucose POC Glucose 164 H 110 H Uric Acid Calcium Iron TIBC Transferrin Transferrin % Sat Ferritin Total Bilirubin AST ALT Alkaline Phosphatase C-Reactive Protein B-Natriuretic Peptide 772 H Total Protein Albumin Globulin Albumin/Globulin Ratio Vitamin B12 Folate Diagnostic Findings Chest X-Ray 01/06/25 11:25 SINGLE VIEW CHEST CLINICAL HISTORY: Sepsis FINDINGS: An AP, portable, upright chest radiograph is compared to study dated 12/19/2024 and correlated with chest CT dated 12/22/2024. The examination is degraded by portable technique and apical lordotic positioning. A right-sided PICC line is unchanged in position. The heart is enlarged noting atherosclerotic calcification of the thoracic aorta. There is pulmonary vascular congestion with interstitial edema. There are layering pleural effusions with dependent consolidation. Emphysematous changes observed. Calcified granulomas are again noted. No pneumothorax is seen. The skeletal structures are osteopenic. The bony thorax is grossly intact. IMPRESSION: 1. Cardiomegaly and emphysema with evidence of congestive failure and pulmonary edema. 2. Layering pleural effusions with bibasilar consolidation. Radiographic follow- up to resolution is recommended. ACT 112: Negative or not required by law. Electronically signed by: Nolan Danielson M.D. 01/06/2025 11:49 AM Renal Ultrasound 01/06/25 13:39 Exam: Retroperitoneal ultrasound. History: Acute kidney insufficiency. Comparison: December 23, 2024. Findings: Right kidney measures 7.0 x 11.8 x 6.3 cm. No stone, mass or hydronephrosis. At least mild cortical volume loss. Left kidney measures 11.6 x 6.8 x 5.8 cm. This contains a hypoechoic through transmitting 2.1 x 2.0 x 3.1 cm nodule. This does not demonstrate color flow. No solid mass, stone or hydronephrosis. Mild cortical volume loss. Urinary bladder not evaluated on this exam. Technologist reports Watson catheter in place. Impression: Mild bilateral cortical volume loss with benign left renal cyst. Otherwise no findings to suggest source for patient's symptoms. Electronically signed by Ronnie Isaacs 01-06-2025 2:36 PM PG Care Time/CCT Total # of Minutes Spent Total Time Spent with Patient: Total time spent is greater than 50% in coordination of care (as documented) at patient's floor/unit and/or counseling patient: Coding Level of Care Code 18737 SUB INP/OBS CARE 3/50MIN Diagnoses Acute respiratory failure with hypoxia J96.01 COPD (chronic obstructive pulmonary disease) J44.9 (HFpEF) heart failure with preserved ejection fraction I50.30 Pulmonary hypertension I27.20
--- NOTE | 2025-01-08 09:06 | Hospitalist Progress Note ---
Date of Service January 08, 2025 Assessment & Plan (1) Acute on chronic heart failure with preserved ejection fraction: (2) CHLOE (acute kidney injury): (3) Uremia: (4) Prosthetic joint infection: (5) Staphylococcus aureus bacteremia: (6) AISHA treated with BiPAP: (7) Abscess of sacrum: (8) Chronic anemia: Plan 69yo male with recent MSSA bacteremia from right hip collection presents to the ER from [facility] due to leg swelling, hypoxia and shortness of breath #Acute on chronic heart failure with preserved ejection fraction / CHLOE / uremia / Acute respiratory failure with hypoxia Baseline O2 on room air at rest although on last admission minimal exertion caused him to need 2LPM O2, needs to wear BiPAP at night and while napping Bumex 2mg IV daily (currently on hold from nephrology but had this first 2 days of admission) Possibly will benefit from thoracentesis and will place Xarelto on hold to allow for this if needed - pulmonology consulted and holding off this currently, will discuss this further tomorrow Strict I&Os -ve 1905ml, Daily standing weights weight up 5-10kg from dry weight Appreciate nephrology consult. Diuretics placed on hold. Agree a significant degree of 3rd spacing is albumin and at risk of intravascular depletion if we go too fast related but still significantly hypervolemic from last discharge and would likely still benefit from diuresis perhaps using IV albumin with diuretics #Left lower extremity ulcer Suspected erythema from leg swelling, no definitive surrounding cellulitis and swelling is equal to right side therefore will elect to monitor for now, picture in H&P, rather than escalate antibiotics Surface wound culture taken although given lack of surrounding cellulitis and no fever or worsening WBC/procalcitonin no need to cover for this currently #Sacral abscess Overlying ulcer now appears to have tunneling to underlying cyst/abscess General surgery consulted and planning on I&D today #Staph aureus bacteremia Diagnosed last admission with source right hip - due to medical complexity and other factors, no plans for I/D or explantation of right hip hardware Continue cefazolin 2g IV q8h (renally dosed) with last date 01/28, planning on cefadroxil following this -RUE PICC line in place #BPH with urinary retention -prior admission wolfe catheter removed prior to discharge, he reports placed back at [facility] for last few days -consider trial without catheter prior to discharge but given current CHLOE will continue for accurate I&Os -continue tamsulosin #Nondisplaced right femoral periprosthetic intertrochanteric fracture Diagnosed last admission WBAT #Chronic anemia Likely exacerbated by frequent lab draws, routine anemia workup with AM labs #Toe ulcers -cont local wound care #Chronic atrial fibrillation/hypertension- -Xarelto on hold for possible thoracentesis -cont metoprolol titrate. Stop diltiazem due to CHLOE to help with renal perfusion as likely needs some compensatory mild tachycardia with his current illness #COPD - -no exacerbation at this time -Duonebs PRN -Continue Trelegy #Type 2 Diabetes mellitus- -Stopped Jardiance due to CHLOE last admission -HbA1C 6.7 -NovoLog SSI, continue reduced Lantus 8 units daily (on 10 units at [facility]) -BSGs controlled #Hyperlipidemia -Continue atorvastatin #Chronic gout -allopurinol held at [facility], uric acid 7.1, will restart reduced dose -no flare at this time #AISHA -cont home BIPAP HS and while napping, patient using his home device VTE Prophylaxis - Xarelto (renally dosed, currently on hold for possible thoracentesis) Disposition - continue on PCU Admission and Anticipated Discharge Date Admission Date: January 06, 2025 Subjective Patient seen in the morning prior to I&D of sacral ulcer. He reports slow improvement with both shortness of breath and leg swelling - although appears similar on exam Physical Exam Constitutional: well developed; + not well nourished and no acute distress ENMT: Mouth: oral mucous membranes not dry Respiratory: normal respiratory effort; no respiratory distress, expiratory phase not prolonged and no stridor Auscultation: lungs clear to auscultation bilaterally, + breath sounds absent (bibasal) and + crackles (posteriorly) Cardiovascular: Rate/Rhythm: regular rate and + irregularly irregular Heart Sounds: normal S1 and normal S2 Extremities: + pedal edema (3+ pitting to abdomenb/l smilar to yesterday although patient feel improved) Gastrointestinal (Abdomen): Inspection/Auscultation: abdomen not distended Percussion/Palpation: abdomen soft; abdomen nontender, no guarding and abdomen not rigid Neurologic: Motor/Sensory: no tremor and no asterixis Psychiatric: Orientation: alert and oriented x 3 Results & Data Results & Data Vital Signs (Past 12 Hours) Vital Signs Temp Pulse Pulse Resp BP Pulse Ox O2 Del Method 01/08/25 07:14 36.4 C L 74 18 113/59 L 99 Nasal Cannula 01/08/25 02:53 36.4 C L 72 18 108/73 96 BiPAP 01/07/25 23:40 36.6 C 75 18 98/56 L 96 CPAP 01/07/25 23:00 74 PG Care Time/CCT Total # of Minutes Spent Total Time Spent with Patient: Total time spent is greater than 50% in coordination of care (as documented) at patient's floor/unit and/or counseling patient: Coding Level of Care Code 05770 SUB INP/OBS CARE 3/50MIN Diagnoses Acute on chronic heart failure with preserved ejection fraction I50.33 CHLOE (acute kidney injury) N17.9 Uremia N19 Prosthetic joint infection T84.50XA Staphylococcus aureus bacteremia R78.81; B95.61 AISHA treated with BiPAP G47.33 Abscess of sacrum M46.28 Chronic anemia D64.9
[2025-01-08] MEDS ORDERED: ATROPINE SULFATE 0.1 MG/ML 10ML SYR IV PRN (09:53)
[2025-01-08] MEDS ORDERED: ONDANSETRON INJ 2 MG/ML 2 ML VIAL IV PRN (09:53)
--- NOTE | 2025-01-08 09:53 | Anesthesiology Consultation ---
Date of Service January 08, 2025 Assessment & Plan Chart Review Chart Review: Acceptable Risk for Surgery, Patient NOT seen in Pre Admission Testing and entry level sales consultant initiated Consults Requested none History Surgery Operation Date: 01/08/25 10:30 Proposed Procedures p Incision and Drainage Sacral Decubitus Ulcer - J Carlos Nesbitt, Height/Weight Height: 6 ft 3 in Weight: 119.7 kg Allergies Allergy/AdvReac Type Severity Reaction Status Date / Time dicyclomine [From Bentyl] Allergy Unknown CAN'T Verified 01/06/25 14:54 REMEMBER Medications Home Medications Medication Instructions Recorded Confirmed Last Taken albuterol sulfate 90 mcg/actuation 2 inh inhalation Q4H PRN shortness 03/18/23 01/06/25 Unknown breath activated powder inhaler of breath or wheezing #1 ea oxygen #2 ea 04/28/23 10/26/24 Unknown diltiazem HCl 180 mg 180 mg PO DAILY #90 caps 03/12/24 01/06/25 12/05/24 capsule,extended release 24 hr fluticasone fur. 100 mcg-umeclid 1 inh inhalation DAILY #60 ea 03/12/24 01/06/25 12/05/24 62.5 mcg-vilant 25 mcg inhalat.powder (Trelegy Ellipta) atorvastatin 10 mg tablet 10 mg PO QPM #90 tabs 04/11/24 01/06/25 01/05/25 furosemide 80 mg tablet 80 mg PO DAILY #180 tabs 04/11/24 01/06/25 12/05/24 metoprolol tartrate 100 mg tablet 100 mg PO BID #180 tabs 04/11/24 01/06/25 01/05/25 blood sugar diagnostic (OneTouch #100 ea 06/07/24 10/26/24 Unknown Ultra Test strips) lancets #100 ea 06/07/24 10/26/24 Unknown acetaminophen 500 mg tablet 500 mg PO Q4H PRN TEMP >100.5 12/05/24 01/06/25 12/05/24 (Tylenol Extra Strength) cefazolin 2 gram intravenous 2 g IV Q8H 12/25/24 01/06/25 01/06/25 05:55 solution diclofenac sodium 1 % topical gel 4 g EXT QID PRN Right knee pain 12/25/24 01/06/25 01/05/25 (Voltaren Arthritis Pain) #100 grams tamsulosin 0.4 mg capsule 0.4 mg PO HS #30 caps 12/25/24 01/06/25 01/05/25 acetaminophen 500 mg tablet 1,000 mg PO Q8H PRN Pain 01/06/25 01/06/25 Unknown (Tylenol Extra Strength) furosemide 10 mg/mL injection 20 mg IV Q12H 01/06/25 01/06/25 01/06/25 08:45 solution insulin aspart U-100 100 unit/mL 1 sliding scale dose subcut 01/06/25 01/06/25 01/06/25 05:55 subcutaneous solution (Novolog USEASDIRECTD 4 UNITS U-100 Insulin aspart) insulin glargine 100 unit/mL 5 unit subcut Q12H 01/06/25 01/06/25 01/05/25 20:05 subcutaneous solution (Lantus U-100 Insulin) ondansetron 4 mg disintegrating 4 mg PO Q6H PRN NAUSEA/VOMITING 01/06/25 01/06/25 Unknown tablet rivaroxaban 15 mg tablet (Xarelto) 15 mg PO DAILY 01/06/25 01/06/25 Unknown sodium chloride 0.9 % (flush) 10 ml IV Q12H 01/06/25 01/06/25 Unknown sodium chloride 1,000 mg soluble 1,000 mg PO DAILY 01/06/25 01/06/25 Unknown tablet Active Medications Generic Name Dose Route Start Last Admin Trade Name Freq PRN Reason Stop Dose Admin Acetaminophen 650 mg 01/06/25 15:04 01/07/25 20:51 Acetaminophen 325 Mg Tab PO 02/05/25 15:03 650 mg Q4H PRN Administration Pain or Fever Atorvastatin Calcium 10 mg 01/06/25 21:00 01/07/25 20:52 Atorvastatin 10 Mg Tab PO 02/05/25 20:59 10 mg QPM IVETH Administration Diltiazem HCl 120 mg 01/07/25 09:00 01/07/25 08:37 Diltiazem Hcl 120 Mg Capcr PO 02/06/25 08:59 120 mg DAILY IVETH Administration Fluticasone Furoate 1 puffs 01/07/25 09:00 01/08/25 08:14 Fluticasone Furoate 100mcg 14 Puffs/Inhaler INH 02/06/25 08:59 1 puffs DAILY IVETH Administration Cefazolin Sodium 2,000 mg in 15 mls @ 3.75 mls/min 01/06/25 15:30 01/08/25 08:13 Ancef 2000mg IV 01/20/25 15:29 3.75 mls/min Q8H IVETH Administration Bumetanide 2 mg/ Syringe 8 mls @ 4 mls/min 01/07/25 09:00 01/07/25 08:15 IV 02/06/25 08:59 4 mls/min BID@0900,1700 IVETH Administration Insulin Aspart 0 units 01/06/25 16:30 01/08/25 08:01 Insulin Aspart Per Unit Charge SC 02/05/25 16:29 Not Given ACHS IVETH Insulin Glargine 8 units 01/08/25 09:00 01/08/25 08:14 Lantus Per Unit Charge SQ 02/07/25 08:59 8 units QAM IVETH Administration Metoprolol Tartrate 100 mg 01/06/25 21:00 01/08/25 08:12 Metoprolol Tartrate 100 Mg Tab PO 02/05/25 20:59 100 mg BID IVETH Administration Tamsulosin HCl 0.4 mg 01/06/25 21:00 01/07/25 20:52 Tamsulosin Hcl 0.4 Mg Cap PO 02/05/25 20:59 0.4 mg HS IVETH Administration Umeclidinium/Vilanterol 1 puffs 01/07/25 09:00 01/08/25 08:13 Umeclidinium/Vilanterol 62.5/25mcg 7 Puffs/Inhaler INH 02/06/25 08:59 1 puffs DAILY IVETH Administration Past Medical History Medical History History of cor pulmonale Other secondary pulmonary hypertension Echo/RHC 04/2023 Type II/III Follows with [facility] pulm. Per visit 04/2023, "Predominantly he has pulmonary hypertension is postcapillary due to diastolic heart failure. Treatment of this syndrome is maintaining an adequate volume status." Lumbar spinal stenosis DJD (degenerative joint disease) Hx of diabetic foot ulcer Hx of left foot ulcer "resolved" per patient- no active infection/ulcer Monitored/following with [facility] for ankle and foot care Venous insufficiency Osteoarthritis Diabetes Hyperlipidemia HTN (hypertension) Hx of gout History of COVID-19 (01/2023) Hospitalized x 3 days at [facility] AISHA (obstructive sleep apnea) BIPAP (compliant) Past Family History Family History Mother Coronary heart disease Hypertension Diabetes Denies family history of Ovarian cancer Prostate cancer Myocardial infarction Breast cancer Colorectal cancer Past Surgical History Surgical History Hx of total knee replacement 10/11/23 History of lumbar fusion (2008) Hx of cardiac catheterization (04/26/23) RHC- Significantly elevated pulmonary capillary wedge pressure. Significantly elevated pulmonary arterial pressure and pulmonary vascular resistance. Significantly elevated right ventricular end-diastolic pressure and right atrial pressure. Recommend continue diuresis for volume overload. Additional recommendations regarding elevated pulmonary vascular resistance per pulmonary medicine team. H/O total hip arthroplasty Right History of vasectomy Social History Smoking Status: Former smoker tobacco type: cigarettes Do You Dip or Chew Tobacco: No Hx Alcohol Use: No Hx Substance Use: No substance use type: does not use Physical Exam Vital Signs Last Vital Signs Temp 36.4 C L 01/08/25 07:14 Pulse 74 01/08/25 07:14 Resp 18 01/08/25 07:14 BP 113/59 L 01/08/25 07:14 Pulse Ox 99 01/08/25 07:14 O2 Del Method Nasal Cannula 01/08/25 09:10 O2 Flow Rate 5 01/08/25 09:10 Testing Laboratory Results 01/08/25 05:34 01/08/25 05:34 PT 15.1 Seconds (9.0-12.0) H 01/06/25 11:20 INR 1.5 (0.9-1.1) H 01/06/25 11:20 Urine Color Yellow 01/06/25 11:32 Urine Appearance Cloudy (Clear) A 01/06/25 11:32 Urine pH 5.0 (4.5-7.5) 01/06/25 11:32 Ur Specific [place] 1.012 (1.000-1.030) 01/06/25 11:32 Urine Protein 2+ (Negative) H 01/06/25 11:32 Urine Glucose (UA) Negative (Negative) 01/06/25 11:32 Urine Ketones Negative (Negative) 01/06/25 11:32 Urine Nitrite Negative (Negative) 01/06/25 11:32 Ur Leukocyte Esterase 2+ (Negative) H 01/06/25 11:32 Urine WBC (Auto) >50 /hpf (0-5) H 01/06/25 11:32 Urine RBC (Auto) >20 /hpf (0-2) H 01/06/25 11:32 U Hyaline Cast (Auto) 6-10 /lpf (0-2) H 01/06/25 11:32 U Epithel Cells (Auto) 3-5 /hpf (0-2) H 01/06/25 11:32 Urine Bacteria (Auto) None Seen (None Seen) 01/06/25 11:32 01/06/25 11:32 Urine Culture - Final Urine,Clean Catch No growth - less than 1,000 colonies/mL. 01/06/25 14:50 Gram Stain - Final Leg,Left Aerobic and Anaerobic Culture - Preliminary Enterobacter cloacae complex 01/06/25 11:20 Aerobic Blood Culture - Preliminary Blood No growth in Aerobic bottle after 24 hours. Anaerobic Blood Culture - Preliminary No growth in Anaerobic bottle after 24 hours. 01/06/25 11:28 Aerobic Blood Culture - Preliminary Blood No growth in Aerobic bottle after 24 hours. Anaerobic Blood Culture - Preliminary No growth in Anaerobic bottle after 24 hours. 01/08/25 07:13 POC Glucose 110 H Other Testing Electrocardiogram Date: 12/07/24 Findings: + AFIB @ Atrial fibrillation Abnormal ECG When compared with ECG of 06-Dec-2024 06:01, (unconfirmed) No significant change was found Chest X-Ray Date: 12/08/24 Findings: + cardiomegaly IMPRESSION: 1. Cardiomegaly and emphysema with evidence of congestive failure. 2. Layering pleural effusions with dependent consolidation. Radiographic follow- up to resolution is recommended. Echocardiogram Date: 12/06/24 EF: 60 LV Function: normal Other Findings: + atrial enlargement Valvular Disease: + MR and + pertinent finding (Moderate TR) severe Pulm HTN
[2025-01-08 09:55] LABS: Albumin Level 2.6 gm/dl (3.4-5.0); Anion Gap 8.0 (3-11); Calcium 8.9 mg/dl (8.6-10.3); Carbon Dioxide 32.0 mmol/L (21-32); Chloride 102.0 mmol/L (98-107); Creatinine Clr Calc Pharmacy 34.9 ml/min; Glucose 89.0 mg/dl (70-99(Fasting)); Potassium 4.1 mmol/L (3.5-5.1); Sodium 142.0 mmol/L (136-145)
[2025-01-08] MEDS ORDERED: MIDAZOLAM HCL 1 MG/ML 2ML VIAL ONE (09:55)
[2025-01-08] MEDS ORDERED: LIDOCAINE 2% 2 ML VIAL/AMP(20MG/ML) INFIL ONE (09:55)
[2025-01-08] MEDS ORDERED: ROCURONIUM BROMIDE 10 MG/ML 5 ML VIAL IV ONE (09:55)
[2025-01-08] MEDS ORDERED: ONDANSETRON INJ 2 MG/ML 2 ML VIAL ONE (09:55)
[2025-01-08] MEDS ORDERED: PROPOFOL IV EMULSION 10 MG/ML 20 ML VIAL IV ONE (09:55)
--- NOTE | 2025-01-08 10:04 | Nephrology Progress Note ---
Date of Service January 08, 2025 Assessment & Plan (1) CHLOE (acute kidney injury): (2) Acute respiratory failure with hypoxia: (3) Staphylococcus aureus bacteremia: (4) Chronic anemia: Plan 69-year-old gentleman with recent admission for sepsis with MSSA bacteremia and right septic hip joint, has been on IV cefazolin, admitted with progressive shortness of breath, volume overload, pulmonary congestion and CHLOE with significantly elevated BUN and creatinine. Renal ultrasound unremarkable plan. Urinalysis with proteinuria, microscopic hematuria but no bacteriuria. Has been having decent urine output with net negative more than 2 L fluid IV diuretics. Volume status slightly improved although continues to be volume overloaded and specially with right-sided pleural effusion and pulmonary congestion. Acute kidney injury could be secondary to intravascular volume depletion with hypoalbuminemia. Possibility for sepsis related GN remains as complements were quite low during last admission and kidney function has been progressively worsening since last admission. -- continue to hold Bumex and monitor intake and output closely -- Significantly elevated BUN with decent urine output and normal electrolyte, may be related to Sectral wound. Drop in hemoglobin with low iron saturation raising concern for bleeding although patient denies any sign of any active bleeding. -- Dose medications for eGFR less than 30. --Continue antibiotic as per ID recommendation --Clinically denied any uremic symptoms, no indication to consider renal replacement therapy at this time. Admission and Anticipated Discharge Date Admission Date: January 06, 2025 Kasia Birmingham was seen and evaluated this morning. Reports feeling about the same, has been requiring nasal cannula oxygen but occasionally taking off and denied having significant shortness of breath with that. Decent urine output about 1 L over last 24 hours. No improvement in kidney function noted in fact creatinine slightly worse and with significantly elevated BUN, electrolyte has been acceptable. Further drop in hemoglobin to 7.5 with iron deficiency. Blood pressure fair. Scheduled for sacral wound debridement in OR today. Review of Systems Review of Systems: Detailed review of system was done and pertinent positives and negatives are mentioned in HPI. Physical Exam Constitutional: WD/WN, vitals as above + ill appearing; no acute distress Eyes: + anicteric sclerae Neck: normal visual inspection Respiratory: Auscultation: + diminished lung sounds and + rales Cardiovascular: Rate/Rhythm: regular rate and regular rhythm Heart Sounds: normal S1 and normal S2 Extremities: + edema Skin: + erythema Neurologic: no focal motor deficits Psychiatric: Orientation: alert and oriented x 3 Affect: euthymic affect Results & Data Vital Signs (Past 12 Hours) Vital Signs Temp Pulse Pulse Resp BP Pulse Ox O2 Del Method 01/08/25 09:10 Nasal Cannula 01/08/25 07:14 36.4 C L 74 18 113/59 L 99 Nasal Cannula 01/08/25 02:53 36.4 C L 72 18 108/73 96 BiPAP 01/07/25 23:40 36.6 C 75 18 98/56 L 96 CPAP 01/07/25 23:00 74 O2 Flow Rate 01/08/25 09:10 5 01/08/25 07:14 01/08/25 02:53 01/07/25 23:40 01/07/25 23:00 PG Care Time/CCT Total # of Minutes Spent Total Time Spent with Patient: Total time spent is greater than 50% in coordination of care (as documented) at patient's floor/unit and/or counseling patient: Coding Level of Care Code 89247 SUB INP/OBS CARE 2/35MIN Diagnoses CHLOE (acute kidney injury) N17.9 Acute respiratory failure with hypoxia J96.01 Staphylococcus aureus bacteremia R78.81; B95.61 Chronic anemia D64.9
--- NOTE | 2025-01-08 10:29 | History & Physical Bridge Note ---
Date of Service January 08, 2025 History & Physical Bridge Note I have examined the patient, reviewed the History & Physical and in the interval since the performance of the History & Physical I have noted the following changes of clinical significance: no changes noted
[2025-01-08] MEDS ORDERED: PHENYLEPHRINE 100MCG/ML 5ML SYR ONE (11:07)
[2025-01-08] MEDS ORDERED: PHENYLEPHRINE HCL 10 MG/ML VIAL ONE (11:08)
[2025-01-08] MEDS ORDERED: SUGAMMADEX SODIUM 200 MG/2 ML VIAL IV ONE (11:22)
[2025-01-08] MEDS: BUPIVACAINE/EPINEPHRINE 0.5% MPF 1:200,000 30 ML VIAL ONE (11:24)
--- NOTE | 2025-01-08 11:35 | Operative Report ---
PG Post Operative Report Pre & Post Diagnosis Operation Date: 01/08/25 10:30 Pre-Op Diagnosis: Sacral Decubitus Ulcer Post-Op Diagnosis: inflammed sebacous cyst I identified the patient and participated in the time-out.: Yes Procedure Operation Date: 01/08/25 10:30 Actual Procedures p Incision and Drainage Sacral Decubitus Ulcer(Not Applicable) - J Carlos Nesbitt DO Surgeon J Carlos Nesbitt DO Prism Inspector OR staff Estimated Blood Loss 25 Findings Consistent with Post-Op Diagnosis Specimens sebecous cyst Description of Procedure After informed consent was obtained the patient was taken to the operating room and placed in supine position. After successful intubation the patient was rolled into a right lateral decubitus position. The lower back over the palpable mass was sterilely prepped and draped in usual fashion. There was already a cavity with an opening. I extended this superiorly and inferiorly. Once I opened up the cavity I was able to appreciate the fact that this was simply a very large inflamed sebaceous cyst. I was able to grasp the edge of the cyst itself and come around it and 360 degrees with a 15 blade scalpel. I was able to remove the cyst in its entirety. We did send it to pathology. The cyst had already been ruptured prior to me initiating the procedure. I then thoroughly irrigated the wound. Because of the inflammation I did not want to primarily close it. I used 1 inch iodoform packing covered with gauze ABD and disposable underwear. The patient was rolled back into a supine position extubated and transferred recovery in stable condition. The cyst measured probably 3 cm in diameter. I attest to the content of the Intraoperative Record and any orders documented therein. Any exceptions are noted below.
--- NOTE | 2025-01-08 12:10 | Procedure Note ---
Procedure Note Date of Service January 07, 2025 Bedside Ultrasound: Lung: Right:-Moderate hypoechoic simple right-sided pleural effusion with compressive atelectasis of the right lower lobe, B-lines posteriorly and anteriorly Left:-Minimal left-sided pleural effusion with B-lines posteriorly and anteriorly Please note the above document was generated using voice recognition software. It may contain grammatical, syntax or spelling errors.Any formal questions or concerns about the content, text or information contained within the body of this dictation should be directly addressed to the provider for clarification. [facility] [place] [facility] [place] Procedure Codes (Charges) Pulmonary/Thoracic Procedure 1: Pulmonary and Thoracic: 18343 US, Chest, real time with imaging documentation Coding CPT Codes Pulmonary/Thoracic - Pulmonary and Thoracic: 79280 US, Chest, real time with imaging documentation ([id number]) Additional Codes Date of Service (PG.SURGERY)
--- NOTE | 2025-01-08 12:25 | Anesthesiology Progress Note ---
Date of Service January 08, 2025 Anesthesia Post Procedure Vital Signs Vital Signs: Temp Pulse Pulse Pulse Resp BP Pulse Ox 01/08/25 12:10 72 16 95/59 L 96 01/08/25 12:00 64 16 93/57 L 95 01/08/25 11:50 70 17 100/62 95 01/08/25 11:44 36.0 C L 79 25 H 89/56 L 90 01/08/25 10:41 67 01/08/25 10:17 36.4 C L 68 20 95/59 L 93 01/08/25 09:10 01/08/25 07:14 36.4 C L 74 18 113/59 L 99 01/08/25 02:53 36.4 C L 72 18 108/73 96 01/07/25 23:40 36.6 C 75 18 98/56 L 96 01/07/25 23:00 74 01/07/25 20:00 01/07/25 19:17 36.7 C 85 110/71 92 01/07/25 15:50 36.3 C L 68 22 106/61 94 01/07/25 15:34 01/07/25 15:04 01/07/25 14:13 92 01/07/25 13:36 67 Pulse Ox Pulse Ox Pulse Ox O2 Del Method O2 Del Method O2 Flow Rate O2 Flow Rate 01/08/25 12:10 CPAP 01/08/25 12:00 CPAP 01/08/25 11:50 CPAP 01/08/25 11:44 Oxymask 10 01/08/25 10:41 01/08/25 10:17 Nasal Cannula 4 01/08/25 09:10 Nasal Cannula 5 01/08/25 07:14 Nasal Cannula 01/08/25 02:53 BiPAP 01/07/25 23:40 CPAP 01/07/25 23:00 01/07/25 20:00 Nasal Cannula 6 01/07/25 19:17 BiPAP 01/07/25 15:50 Nasal Cannula 6 01/07/25 15:34 92 93 01/07/25 15:04 99 BiPAP 11 01/07/25 14:13 Nasal Cannula 6 01/07/25 13:36 O2 Flow Rate O2 Flow Rate FiO2 01/08/25 12:10 40 01/08/25 12:00 40 01/08/25 11:50 40 01/08/25 11:44 01/08/25 10:41 01/08/25 10:17 01/08/25 09:10 01/08/25 07:14 01/08/25 02:53 01/07/25 23:40 01/07/25 23:00 01/07/25 20:00 01/07/25 19:17 01/07/25 15:50 01/07/25 15:34 4 4 01/07/25 15:04 01/07/25 14:13 01/07/25 13:36 Pain Intensity Bilateral Hip: Pain Intensity: 5 Transfer of Care Handoff Completed per policy Notes Mental Status: alert / awake / arousable Patient Amnestic to Procedure: Yes Nausea / Vomiting: adequately controlled Pain: adequately controlled Airway Patency, RR, SpO2: stable & adequate BP & HR: stable & adequate Hydration State: stable & adequate Anesthetic Complications: no major complications apparent and Pt Satisfied with anesthetic care
--- NOTE | 2025-01-08 19:33 | XRay Report ---
EXAM: X-ray chest one-view portable CLINICAL HISTORY: Hypoxia PRIORS: Chest CT 12/21/2024, chest radiograph 01/06/2025 TECHNIQUE: Frontal view chest FINDINGS: Lung volumes are diminished. Opacification of the left lower lobe again noted with possible airspace consolidation and moderate pleural effusion. Oval shape well-circumscribed opacity present in the left hemithorax, mid lateral aspect, appearing in the interval and measuring 5.5 cm in craniocaudal dimension. Cardiomediastinal silhouette is enlarged, unchanged. Moderate atherosclerotic disease of the aortic knob. PICC catheter present, unchanged. No radiopaque foreign body. IMPRESSION: Radiographic features favoring volume overload. However, superimposed pneumonia in the right lung base is also on the differential diagnosis, please correlate clinically. New left lung oval-shaped opacification in the mid lateral aspect possibly loculated fluid appearing since the 12/21/2024 CT and more conspicuous when compared to 01/06/2025 due to differences in breath-hold. ACT 112: Positive. There are findings on this examination that require communication between the performing entity and the patient following Patient Test Result Information Act ([place] ACT 112) guidelines. Electronically signed by Fifi Hannon 01-08-2025 7:32 PM
[2025-01-08 19:42] LABS: Base Excess VBG 6.8 mEq/L; HCO3 VBG 33 mmol/L; Oxygen Saturation VBG 89.9 %; PCO2 VBG 54 mmHg (38-50); PO2 VBG 53 mmHg; pH VBG 7.39 (7.36-7.41)
[2025-01-08 19:45] LABS: Hematocrit (blood only) 27.8 % (42.0-52.0); Hemoglobin 8.5 g/dL (14.0-18.0); Immature Granulocytes # (auto) 0.05 K/uL (0.01-0.20); Immature Granulocytes % (auto) 0.5 %; Mean Corpuscular Hemoglobin 31.4 pg (25.0-34.0); Mean Corpuscular Volume 102.6 fL (80.0-100.0); Platelet Count 284 K/uL (130-400); RDW Standard Deviation 79.7 fL (36.4-46.3); Red Blood Count 2.71 M/uL (4.70-6.10); White Blood Count 10.01 K/ul (4.8-10.8)
[2025-01-08 20:03] LABS: Anisocytosis Present; Ovalocytes 1+; Polychromasia 1+
[2025-01-08 20:04] LABS: Anion Gap 6 (3-11); Blood Urea Nitrogen 124 mg/dl (6-23); Calcium 8.5 mg/dl (8.6-10.3); Carbon Dioxide 32 mmol/L (21-32); Chloride 101 mmol/L (98-107); Creatinine Clr Calc Pharmacy 30.6 ml/min; Glucose 129 mg/dl (70-99(Fasting)); Potassium 4.3 mmol/L (3.5-5.1); Sodium 139 mmol/L (136-145)
--- NOTE | 2025-01-08 20:08 | Communication Note ---
Date of Service: January 08, 2025 Called due to worsening hypoxia while on his home CPAP. Improved O2 sats back to 97% when I went down to see him however and suspect he wasn't breathing very well on this. Home CPAP changed to our CPAP by respiratory. CXR with worsening RLL pleural effusion and consolidation - planning on thoracentesis tomorrow. No choking or coughing after eating has been noticed but this intermittent worsening hypoxia is concerning for possible mucus plug/aspiration and will keep NPO for SLT to see tomorrow. No fever or procalcitonin to suggest worsening infection. If clinically worsening overnight I would consider albumin IV with Bumex to help with renal perfusion with diuresis. Hopefully off the diltiazem this will also help. He remains net negative fluid balance however and hypoxia has significantly improved I do not see a reason to give Bumex at the present time. No wheezing on exam but given COPD and possible aspiration will prescribe duonebs. Reduce Ancef to q12h dosing.
[2025-01-08 20:20] LABS: Alanine Aminotransferase < 3 U/L (7-52); Albumin Globulin Ratio 0.8 (0.9-2); Albumin Level 2.6 gm/dl (3.4-5.0); Alkaline Phosphatase 93 U/L (34-104); Bilirubin,Total 0.3 mg/dl (0.2-1.0); Globulin 3.3 gm/dl (2.5-4.0); Magnesium 2.2 mg/dl (1.7-2.4); Total Protein 5.9 gm/dl (6.0-8.3)
[2025-01-08] MEDS: ALBUT/IPRATROP 3MG/0.5MG NEB 3 ML VIAL NEB SCH (22:15)
[2025-01-09] MEDS: INSULIN ASPART PER UNIT CHARGE SC SCH ×2 (00:26→16:47)
[2025-01-09 06:06] LABS: Base Excess VBG 5.6 mEq/L; HCO3 VBG 34 mmol/L; Oxygen Saturation VBG 72.9 %; PCO2 VBG 68 mmHg (38-50); PO2 VBG 42 mmHg; pH VBG 7.31 (7.36-7.41)
[2025-01-09 06:18] LABS: Hematocrit (blood only) 24.8 % (42.0-52.0); Hemoglobin 7.7 g/dL (14.0-18.0); Mean Corpuscular Hemoglobin 31.7 pg (25.0-34.0); Mean Corpuscular Volume 102.1 fL (80.0-100.0); Platelet Count 270 K/uL (130-400); RDW Standard Deviation 77.1 fL (36.4-46.3); Red Blood Count 2.43 M/uL (4.70-6.10); White Blood Count 7.92 K/ul (4.8-10.8)
[2025-01-09 06:54] LABS: Albumin Level 2.7 gm/dl (3.4-5.0); Anion Gap 8.0 (3-11); Bilirubin,Total 0.3 mg/dl (0.2-1.0); Calcium 8.8 mg/dl (8.6-10.3); Carbon Dioxide 32.0 mmol/L (21-32); Chloride 101.0 mmol/L (98-107); Creatinine Clr Calc Pharmacy 29.7 ml/min; Glucose 102.0 mg/dl (70-99(Fasting)); Potassium 4.4 mmol/L (3.5-5.1); Sodium 141.0 mmol/L (136-145); Total Protein 5.6 gm/dl (6.0-8.3)
[2025-01-09 07:07] LABS: Blood Urea Nitrogen 138.0 mg/dl (6-23)
--- NOTE | 2025-01-09 09:07 | Pulmonology Progress Note ---
Date of Service January 09, 2025 Assessment & Plan (1) Acute respiratory failure with hypoxia: (2) COPD (chronic obstructive pulmonary disease): (3) (HFpEF) heart failure with preserved ejection fraction: (4) Pulmonary hypertension: Plan CT chest 12/21/2024 personally reviewed: Centrilobular emphysema appreciated bilaterally Interlobular thickening appreciated in the upper lobes Left upper lobe granuloma Bilateral pleural effusion R>L Elevated right hemidiaphragm with dependent atelectasis of the right lower lobe Significant mediastinal and hilar lymphadenopathy, chronic 2D echo 12/06/2024: EF 60-65%, mild RV dilation, RVSP > 60 mmHg Spirometry 05/13/2023 personally reviewed: Moderate obstructive lung dysfunction FVC 3.92 L 76%, FEV1 2.07 L 54%, FEV1/FVC 53% --Acute hypoxic respiratory failure Respiratory BioFire negative for everything on 12/05/2024 BNP 547 Nasal MRSA negative, procalcitonin 0.16 --Bilateral pleural effusion Small to moderate on the right, minimal on the left Plan for thoracentesis today with radiology. --COPD with emphysema On Trelegy 100 at home Not in exacerbation --AISHA On BiPAP nightly --Pulmonary hypertension Combination of type II intensity --A-fib On Xarelto at home. Has been held since 01/05/25 for thoracentesis. Plan: Plan for thoracentesis with radiology today. Diuretics held at this time in setting of worsening renal function. Patient able to maintain negative balance without diuretics. Nephro following will discuss options including candidacy for dialysis. Continue Bipap Continue ISB Thank you for allowing us to participate in this patient's care. Please feel free to reach out with questions or concerns. Admission and Anticipated Discharge Date Admission Date: January 06, 2025 Supervising Physician Co-Signing Physician Notes I saw and evaluated the patient with JOSE Mejia, and agree with findings and plan as documented in the note. Patient seen and examined at bedside. No acute distress Overnight patient was hypoxic after he came from the OR. He was not able to tolerate his home BiPAP Was changed to BiPAP from the hospital. His oxygenation did improve At the time of examination he was saturating 97% on 7 L, I went down to 3 L Denied any chest pain Has been diuresing without diuretics. Denies any abdominal pain No nausea or vomiting Constitutional: No acute distress HEENT: EOMI, PERRLA Respiratory system: Decreased air entry bilaterally, more decreased on the right, no wheeze, rhonchi, positive crackles bilaterally CVS: S1-S2 positive, no murmurs or gallops, irregular rhythm Abdomen: Soft, nontender, nondistended, positive bowel sounds x4 Extremities: +2 pulses bilaterally radialis/ dorsalis pedis, no cyanosis, +3 pitting edema bilateral lower extremity Neuro: Awake alert oriented x3 Psych: Normal mood and affect G/U: Positive Watson Plan: In/out: -3 L since coming to the hospital Diuresis on hold because of elevated BUN and creatinine. Continue with BiPAP nightly and as needed shortness of breath For thoracentesis today Recommend incentive spirometry Goals of care were discussed with the patient especially given that he has severe pulmonary hypertension and CKD. If there is any worsening in his breathing then he might need to be intubated, if his kidney function does not improve then he might need dialysis. He will not be a good candidate for dialysis given the severe pulmonary hypertension He understands and would want temporary intubation and CPR if need be Case was discussed with RN at bedside I spent more than 50 minutes looking in the chart, images, discussing the plan of care with the patient, RN as well as primary team Please note the above document was generated using voice recognition software. It may contain grammatical, syntax or spelling errors.Any formal questions or concerns about the content, text or information contained within the body of this dictation should be directly addressed to the provider for clarification. Subjective Mr. Fermin had debridement of a sacral wound/abscess. Post procedure had some hypoxia and was placed on his home CPAP. He was initially stable but unfortunately desaturated to the low 80's. Patient placed on Romero with improvement. Patient this am noted to be on oxymask at 7 liters with SpO2 99% and weaned to 5 liters. Patient subjectively feels his breathing is slightly difficult. CXR showed increase in right pleural effusion. Diuretics held due to worsening renal function but despite this patient was able to maintain a negative 400ml fluid balance in the last 24hrs. Plan for thoracentesis today. Discussed code status given patient has severe pulmonary hypertension, worsening respiratory and renal function. Explained that if patient continues to worsen patient may require intubation and that his ability to safely come off the ventilator would be significantly hampered by severe comorbidities. Also discussed that CPR and other resuscitative measures in setting of cardiac arrest would likely not be effective or result in a poor outcome even if ROSC was achieved. Patient acknowledge the concerns and would like to continue with full code status. He does state that he would not want to be dependent on a ventilator or have a tracheostomy placed but would like to try short term intubation if needed. Review of Systems 2 Review of Systems: All systems reviewed & are unremarkable except as noted in HPI & below Physical Exam 2 Physical Exam: VITALS: Reviewed. WEIGHT/BMI reviewed. GEN: Pleasant, well-developed, NAD. PSYCH: Good Judgment. AOx3. Normal memory, mood, and affect. HEENT -Head: NC/AT; -Eyes: PERRL, EOMI. No discharge or redn ess; -Ears: External ears are normal. -Nose: Normal nares. NECK: Supple, with no masses. CV: RRR, no m/r/g. LUNGS: Clear in b/l upper lobes. Diminished bases R>L. Chest rise symmetrical. Breathing nonlabored. ABD: N/A : N/A SKIN: Warm, well perfused. No skin rashes or abnormal lesions. MSK: No deformities, Normal gait. EXT: No clubbing, cyanosis, or edema. NEURO: Normal muscle strength and tone. No focal deficits. Results & Data Results & Data Vital Signs (Past 12 Hours) Vital Signs Temp Pulse Pulse Resp BP BP Pulse Ox 01/09/25 08:06 36.6 C 108 H 20 96/58 L 93 01/09/25 07:34 01/09/25 07:00 88 20 91 01/09/25 04:15 21 01/09/25 02:48 36.7 C 84 20 118/74 95 01/09/25 02:34 81 18 98 01/09/25 00:15 36.6 C 79 20 104/68 95 01/08/25 23:09 91 H 01/08/25 22:24 86 18 98 01/08/25 22:21 86 18 98 01/08/25 21:27 82 107/70 O2 Del Method O2 Flow Rate FiO2 01/09/25 08:06 Oxymask 7 01/09/25 07:34 Oxymask 7 01/09/25 07:00 Oxymask 6 01/09/25 04:15 40 01/09/25 02:48 BiPAP 01/09/25 02:34 40 01/09/25 00:15 BiPAP 01/08/25 23:09 01/08/25 22:24 BiPAP 40 01/08/25 22:21 40 01/08/25 21:27 Laboratory Results 01/09/25 05:45 01/09/25 05:45 Abnormal Lab Results 01/08/25 01/08/25 01/08/25 05:34 10:27 11:47 WBC RBC Hgb Hct MCV MCH MCHC RDW Std Deviation RDW Coeff of Marce Plt Count MPV Immature Gran % (Auto) Neut % (Auto) Lymph % (Auto) Porter % (Auto) Eos % (Auto) Baso % (Auto) Neut # (Auto) Lymph # (Auto) Porter # (Auto) Eos # (Auto) Baso # (Auto) Immature Gran # (Auto) Absolute Nucleated RBC Nucleated RBC % (auto) Polychromasia Anisocytosis Ovalocytes VBG pH VBG pCO2 VBG pO2 VBG HCO3 VBG O2 Saturation VBG Base Excess Sodium 142 Potassium 4.1 Chloride 102 Carbon Dioxide 32 Anion Gap 8 BUN Creatinine 2.71 H Est Cr Clr Drug Dosing 34.9 eGFR 24.33 BUN/Creatinine Ratio Glucose 89 POC Glucose 90 83 Lactate Calcium 8.9 Phosphorus 5.0 H Magnesium Total Bilirubin AST ALT Alkaline Phosphatase Lactate Dehydrogenase Total Protein Albumin 2.6 L Globulin Albumin/Globulin Ratio Procalcitonin 01/08/25 01/08/25 01/08/25 13:05 16:17 18:35 WBC RBC Hgb Hct MCV MCH MCHC RDW Std Deviation RDW Coeff of Marce Plt Count MPV Immature Gran % (Auto) Neut % (Auto) Lymph % (Auto) Porter % (Auto) Eos % (Auto) Baso % (Auto) Neut # (Auto) Lymph # (Auto) Porter # (Auto) Eos # (Auto) Baso # (Auto) Immature Gran # (Auto) Absolute Nucleated RBC Nucleated RBC % (auto) Polychromasia Anisocytosis Ovalocytes VBG pH VBG pCO2 VBG pO2 VBG HCO3 VBG O2 Saturation VBG Base Excess Sodium Potassium Chloride Carbon Dioxide Anion Gap BUN Creatinine Est Cr Clr Drug Dosing eGFR BUN/Creatinine Ratio Glucose POC Glucose 81 157 H 143 H Lactate Calcium Phosphorus Magnesium Total Bilirubin AST ALT Alkaline Phosphatase Lactate Dehydrogenase Total Protein Albumin Globulin Albumin/Globulin Ratio Procalcitonin 01/08/25 01/09/25 01/09/25 19:31 00:23 05:45 WBC 10.01 7.92 RBC 2.71 L 2.43 L Hgb 8.5 L 7.7 L Hct 27.8 L 24.8 L MCV 102.6 H 102.1 H MCH 31.4 31.7 MCHC 30.6 L 31.0 L RDW Std Deviation 79.7 H 77.1 H RDW Coeff of Marce 21.1 H 20.8 H Plt Count 284 270 MPV 10.3 10.4 Immature Gran % (Auto) 0.5 Neut % (Auto) 78.6 Lymph % (Auto) 6.8 Porter % (Auto) 10.8 Eos % (Auto) 2.3 Baso % (Auto) 1.0 Neut # (Auto) 7.87 H Lymph # (Auto) 0.68 L Porter # (Auto) 1.08 H Eos # (Auto) 0.23 Baso # (Auto) 0.10 Immature Gran # (Auto) 0.05 Absolute Nucleated RBC 0.02 0.02 Nucleated RBC % (auto) 0.2 0.3 Polychromasia 1+ Anisocytosis Present Ovalocytes 1+ VBG pH 7.39 7.31 L VBG pCO2 54 H 68 H VBG pO2 53 42 VBG HCO3 33 34 VBG O2 Saturation 89.9 72.9 VBG Base Excess 6.8 5.6 Sodium 139 141 Potassium 4.3 4.4 Chloride 101 101 Carbon Dioxide 32 32 Anion Gap 6 8 BUN 124 H 138 H Creatinine 3.09 H D 3.18 H Est Cr Clr Drug Dosing 30.6 29.7 eGFR 20.78 20.08 BUN/Creatinine Ratio 40.1 H 43.4 H Glucose 129 H 102 H POC Glucose 133 H Lactate 0.9 Calcium 8.5 L 8.8 Phosphorus 5.5 H Magnesium 2.2 Total Bilirubin 0.3 0.3 AST 14 ALT < 3 L Alkaline Phosphatase 93 Lactate Dehydrogenase 165 Total Protein 5.9 L 5.6 L Albumin 2.6 L 2.7 L Globulin 3.3 Albumin/Globulin Ratio 0.8 L Procalcitonin 0.18 01/09/25 05:49 WBC RBC Hgb Hct MCV MCH MCHC RDW Std Deviation RDW Coeff of Marce Plt Count MPV Immature Gran % (Auto) Neut % (Auto) Lymph % (Auto) Porter % (Auto) Eos % (Auto) Baso % (Auto) Neut # (Auto) Lymph # (Auto) Porter # (Auto) Eos # (Auto) Baso # (Auto) Immature Gran # (Auto) Absolute Nucleated RBC Nucleated RBC % (auto) Polychromasia Anisocytosis Ovalocytes VBG pH VBG pCO2 VBG pO2 VBG HCO3 VBG O2 Saturation VBG Base Excess Sodium Potassium Chloride Carbon Dioxide Anion Gap BUN Creatinine Est Cr Clr Drug Dosing eGFR BUN/Creatinine Ratio Glucose POC Glucose 112 H Lactate Calcium Phosphorus Magnesium Total Bilirubin AST ALT Alkaline Phosphatase Lactate Dehydrogenase Total Protein Albumin Globulin Albumin/Globulin Ratio Procalcitonin Diagnostic Findings Chest X-Ray 01/08/25 18:32 EXAM: X-ray chest one-view portable CLINICAL HISTORY: Hypoxia PRIORS: Chest CT 12/21/2024, chest radiograph 01/06/2025 TECHNIQUE: Frontal view chest FINDINGS: Lung volumes are diminished. Opacification of the left lower lobe again noted with possible airspace consolidation and moderate pleural effusion. Oval shape well-circumscribed opacity present in the left hemithorax, mid lateral aspect, appearing in the interval and measuring 5.5 cm in craniocaudal dimension. Cardiomediastinal silhouette is enlarged, unchanged. Moderate atherosclerotic disease of the aortic knob. PICC catheter present, unchanged. No radiopaque foreign body. IMPRESSION: Radiographic features favoring volume overload. However, superimposed pneumonia in the right lung base is also on the differential diagnosis, please correlate clinically. New left lung oval-shaped opacification in the mid lateral aspect possibly loculated fluid appearing since the 12/21/2024 CT and more conspicuous when compared to 01/06/2025 due to differences in breath-hold. ACT 112: Positive. There are findings on this examination that require communication between the performing entity and the patient following Patient Test Result Information Act ([place] ACT 112) guidelines. Electronically signed by Fifi Hannon 01-08-2025 7:32 PM PG Care Time/CCT Total # of Minutes Spent Total Time Spent with Patient: Total time spent is greater than 50% in coordination of care (as documented) at patient's floor/unit and/or counseling patient: Coding Level of Care Code 50338 SUB INP/OBS CARE 3/50MIN Diagnoses Acute respiratory failure with hypoxia J96.01 COPD (chronic obstructive pulmonary disease) J44.9 (HFpEF) heart failure with preserved ejection fraction I50.30 Pulmonary hypertension I27.20
--- NOTE | 2025-01-09 09:55 | Hospitalist Progress Note ---
Date of Service January 09, 2025 Assessment & Plan (1) Acute on chronic heart failure with preserved ejection fraction: (2) CHLOE (acute kidney injury): (3) Uremia: (4) Prosthetic joint infection: (5) Staphylococcus aureus bacteremia: (6) AISHA treated with BiPAP: (7) Abscess of sacrum: (8) Chronic anemia: Plan 69yo male with recent hospitalization for MSSA bacteremia (12/05 to 12/25) 2nd to infected right hip prosthesis. Presented from [facility] rehab due to leg swelling, hypoxia and shortness of breath. #Acute on chronic heart failure with preserved ejection fraction with resulting acute hypoxic/hypercapnic respiratory failure - -had decompensated CHF during the prior admission as well -received IV diuresis early portion of this stay -diuresis then placed on hold with worsening CHLOE (see below) -clinically still volume overloaded with effusions (s/p right thoracentesis today), edema of LEs, etc. -defer diuretic management to nephrology given his CHLOE -in addition to diastolic CHF his hypoalbuminemia, CHLOE, +/- cirrhosis also contributing to volume overload -due to hypercapnia continue home BIPAP -serial VBGs today did show improved pH and pCO2 with use of his BIPAP #CHLOE/acute renal failure - -baseline Cr is ~1.4 to 1.5 -on hospital d/c on 12/25/24 his Cr was 2 -upon presentation 01/06 his Cr was 2.65 -now >3 -CT imaging in November did not show any obstructive process -appreciate nephrology assistance -defer diuretic management to Dr Potter -daily BMP -need for temporary HD for volume control? -patient with cirrhotic appearing liver on imaging in November - could he have element of hepatorenal syndrome? -urine Na level was 89 which makes hepatorenal syndrome unlikely (typically quite low with HRS) #right-sided pleural effusion - -s/p thoracentesis with 800ml removed -transudative fluid -no signs of infectious process -post-thora cxr w/o pneumothorax -hopefully with his use of BIPAP the RLL will open up #Left lower extremity ulcer - -local wound care -a wound cx was taken from this region, but no suspicion of infection or cellulitis #Sacral abscess - sebaceous cyst - -POD #1 s/p I & D and removal of the cyst by Dr Nesbitt #Staph aureus bacteremia - -dx last admission in November -source - infected right THR -due to medical complexity and other factors, no plans for I/D or explantation of right hip hardware -continue cefazolin renally dosed with last date 01/28 -then cefadroxil for chronic oral suppression -RUE PICC line in place #BPH with urinary retention - -prior admission wolfe catheter removed prior to discharge -patient reports it was placed back at [facility] -consider trial without catheter prior to discharge but given current CHLOE will continue for accurate I&Os -continue tamsulosin #Nondisplaced right femoral periprosthetic intertrochanteric fracture - -Diagnosed last admission -no surgical Rx needed -WBAT #Chronic anemia - -CBC in am -cont IV venofer as ordered by nephrology #Toe ulcers - -cont local wound care #Chronic atrial fibrillation/hypertension - -Xarelto on hold for thoracentesis -cont metoprolol titrate BID but holding diltiazem #COPD - -no exacerbation at this time -Duonebs PRN -Continue Trelegy #Type 2 Diabetes mellitus - -Stopped Jardiance due to CHLOE last admission -HbA1C 6.7% -NovoLog SSI -continue Lantus but reduce it further to 5 units daily (was on 10 units at [facility]) #Hyperlipidemia - -Continue atorvastatin #Chronic gout 0 -allopurinol held at [facility], uric acid 7.1 -resumed at lower dose/renal dosing #AISHA - -cont home BIPAP HS and naps VTE Prophylaxis - Xarelto - on hold for thoracentesis care d/w pulmonary via [facility] d/w nephrology by phone Admission and Anticipated Discharge Date Admission Date: January 06, 2025 Subjective tele - a.fib, rates low 100s or below patient underwent right sided thoracentesis this am - 800ml of clear fluid removed he wore his home BIPAP this am, had it removed for the thoracentesis, then upon return to the floor his BIPAP was placed back on during my visit - which was mid-afternoon -- patient was awake he had his BIPAP on daughter at bedside did not c/o dyspnea complained of being hungry - asking for food denies pain in right hip or any other location we had lengthy discussion about his CHLOE and what that could entail moving forward Review of Systems Review of Systems: gen - no fevers or chills cv - no chest pain pulm - no dyspnea at rest skin/musculo - c/o pain where the sacral abscess was drained Physical Exam Physical Exam: gen - lying in bed, BIPAP on, awake, alert; no distress neck - no JVD mouth - MMM heart - irregularly irregular, s1 s2, no murmur; tachy low 100s lungs - decreased BS right base, otherwise CTA b/l; no distress; no wheezes or rales abd - soft NT ND BS+ ext - 3+ pitting edema from feet to knees b/l psych - a/o x 3 neuro - myoclonic jerks noted periodically Results & Data Results & Data Vital Signs (Past 12 Hours) Vital Signs Temp Pulse Pulse Resp BP BP Pulse Ox 01/09/25 08:06 36.6 C 108 H 20 96/58 L 93 01/09/25 07:34 01/09/25 07:00 88 20 91 01/09/25 04:15 21 01/09/25 02:48 36.7 C 84 20 118/74 95 01/09/25 02:34 81 18 98 01/09/25 00:15 36.6 C 79 20 104/68 95 01/08/25 23:09 91 H 01/08/25 22:24 86 18 98 01/08/25 22:21 86 18 98 O2 Del Method O2 Flow Rate FiO2 01/09/25 08:06 Oxymask 7 01/09/25 07:34 Oxymask 7 01/09/25 07:00 Oxymask 6 01/09/25 04:15 40 01/09/25 02:48 BiPAP 01/09/25 02:34 40 01/09/25 00:15 BiPAP 01/08/25 23:09 01/08/25 22:24 BiPAP 40 01/08/25 22:21 40 Laboratory Results Laboratory Results - last 24 hr 01/08/25 01/08/25 01/08/25 05:34 10:27 11:47 WBC RBC Hgb Hct MCV MCH MCHC RDW Std Deviation RDW Coeff of Marce Plt Count MPV Immature Gran % (Auto) Neut % (Auto) Lymph % (Auto) Whitman % (Auto) Eos % (Auto) Baso % (Auto) Neut # (Auto) Lymph # (Auto) Whitman # (Auto) Eos # (Auto) Baso # (Auto) Immature Gran # (Auto) Absolute Nucleated RBC Nucleated RBC % (auto) Polychromasia Anisocytosis Ovalocytes VBG pH VBG pCO2 VBG pO2 VBG HCO3 VBG O2 Saturation VBG Base Excess Sodium 142 Potassium 4.1 Chloride 102 Carbon Dioxide 32 Anion Gap 8 BUN Creatinine 2.71 H Est Cr Clr Drug Dosing 34.9 eGFR 24.33 BUN/Creatinine Ratio Glucose 89 POC Glucose 90 83 Lactate Calcium 8.9 Phosphorus 5.0 H Magnesium Total Bilirubin AST ALT Alkaline Phosphatase Lactate Dehydrogenase Total Protein Albumin 2.6 L Globulin Albumin/Globulin Ratio Procalcitonin 01/08/25 01/08/25 01/08/25 13:05 16:17 18:35 WBC RBC Hgb Hct MCV MCH MCHC RDW Std Deviation RDW Coeff of Marce Plt Count MPV Immature Gran % (Auto) Neut % (Auto) Lymph % (Auto) Whitman % (Auto) Eos % (Auto) Baso % (Auto) Neut # (Auto) Lymph # (Auto) Whitman # (Auto) Eos # (Auto) Baso # (Auto) Immature Gran # (Auto) Absolute Nucleated RBC Nucleated RBC % (auto) Polychromasia Anisocytosis Ovalocytes VBG pH VBG pCO2 VBG pO2 VBG HCO3 VBG O2 Saturation VBG Base Excess Sodium Potassium Chloride Carbon Dioxide Anion Gap BUN Creatinine Est Cr Clr Drug Dosing eGFR BUN/Creatinine Ratio Glucose POC Glucose 81 157 H 143 H Lactate Calcium Phosphorus Magnesium Total Bilirubin AST ALT Alkaline Phosphatase Lactate Dehydrogenase Total Protein Albumin Globulin Albumin/Globulin Ratio Procalcitonin 01/08/25 01/09/25 01/09/25 19:31 00:23 05:45 WBC 10.01 7.92 RBC 2.71 L 2.43 L Hgb 8.5 L 7.7 L Hct 27.8 L 24.8 L MCV 102.6 H 102.1 H MCH 31.4 31.7 MCHC 30.6 L 31.0 L RDW Std Deviation 79.7 H 77.1 H RDW Coeff of Marce 21.1 H 20.8 H Plt Count 284 270 MPV 10.3 10.4 Immature Gran % (Auto) 0.5 Neut % (Auto) 78.6 Lymph % (Auto) 6.8 Whitman % (Auto) 10.8 Eos % (Auto) 2.3 Baso % (Auto) 1.0 Neut # (Auto) 7.87 H Lymph # (Auto) 0.68 L Whitman # (Auto) 1.08 H Eos # (Auto) 0.23 Baso # (Auto) 0.10 Immature Gran # (Auto) 0.05 Absolute Nucleated RBC 0.02 0.02 Nucleated RBC % (auto) 0.2 0.3 Polychromasia 1+ Anisocytosis Present Ovalocytes 1+ VBG pH 7.39 7.31 L VBG pCO2 54 H 68 H VBG pO2 53 42 VBG HCO3 33 34 VBG O2 Saturation 89.9 72.9 VBG Base Excess 6.8 5.6 Sodium 139 141 Potassium 4.3 4.4 Chloride 101 101 Carbon Dioxide 32 32 Anion Gap 6 8 BUN 124 H 138 H Creatinine 3.09 H D 3.18 H Est Cr Clr Drug Dosing 30.6 29.7 eGFR 20.78 20.08 BUN/Creatinine Ratio 40.1 H 43.4 H Glucose 129 H 102 H POC Glucose 133 H Lactate 0.9 Calcium 8.5 L 8.8 Phosphorus 5.5 H Magnesium 2.2 Total Bilirubin 0.3 0.3 AST 14 ALT < 3 L Alkaline Phosphatase 93 Lactate Dehydrogenase 165 Total Protein 5.9 L 5.6 L Albumin 2.6 L 2.7 L Globulin 3.3 Albumin/Globulin Ratio 0.8 L Procalcitonin 0.18 01/09/25 05:49 WBC RBC Hgb Hct MCV MCH MCHC RDW Std Deviation RDW Coeff of Marce Plt Count MPV Immature Gran % (Auto) Neut % (Auto) Lymph % (Auto) Whitman % (Auto) Eos % (Auto) Baso % (Auto) Neut # (Auto) Lymph # (Auto) Whitman # (Auto) Eos # (Auto) Baso # (Auto) Immature Gran # (Auto) Absolute Nucleated RBC Nucleated RBC % (auto) Polychromasia Anisocytosis Ovalocytes VBG pH VBG pCO2 VBG pO2 VBG HCO3 VBG O2 Saturation VBG Base Excess Sodium Potassium Chloride Carbon Dioxide Anion Gap BUN Creatinine Est Cr Clr Drug Dosing eGFR BUN/Creatinine Ratio Glucose POC Glucose 112 H Lactate Calcium Phosphorus Magnesium Total Bilirubin AST ALT Alkaline Phosphatase Lactate Dehydrogenase Total Protein Albumin Globulin Albumin/Globulin Ratio Procalcitonin Diagnostic Findings Chest X-Ray 01/09/25 10:55 XR chest 1V not portable CLINICAL HISTORY: POST THORACENTESIS COMPARISON STUDY: 01/08/2025 FINDINGS: Stable right PICC. Stable cardiomegaly with mild pulmonary vascular congestion. Stable mild opacity at the left lung base. There is mild opacity at the right lung base with blunting of the right costophrenic angle, improved. No pneumothorax seen. IMPRESSION: No pneumothorax. ACT 112: Negative or not required by law. Electronically signed by: Trevor Arteaga M.D. 01/09/2025 11:16 AM Thoracentesis/Paracentesis US 01/09/25 12:06 IR thoracentesis wo tube US CLINICAL HISTORY: Right-sided pleural effusion COMPARISON STUDY: 01/06/2025 and 12/22/2024 Technique: After the procedure was discussed and questions answered, consent was obtained. Patient was positioned seated upright. Preprocedure ultrasound demonstrates right pleural effusion. The right back was prepped and draped in standard sterile fashion. 1% lidocaine was used for local anesthesia. Under ultrasound guidance, a thoracentesis catheter was advanced to the right pleural effusion from a posterior lower intercostal approach. 800 cc of straw-colored fluid was withdrawn. Catheter was removed. Hemostasis was obtained with manual compression. Sterile dressing was applied. Postprocedure chest x-ray shows no pneumothorax. IMPRESSION: Right thoracentesis. ACT 112: Negative or not required by law. Electronically signed by: Trevor Arteaga M.D. 01/09/2025 11:20 AM PG Care Time/CCT Total # of Minutes Spent Total Time Spent with Patient: Total time spent is greater than 50% in coordination of care (as documented) at patient's floor/unit and/or counseling patient: Coding Level of Care Code 22989 SUB INP/OBS CARE 3/50MIN Diagnoses Acute on chronic heart failure with preserved ejection fraction I50.33 CHLOE (acute kidney injury) N17.9 Uremia N19 Prosthetic joint infection T84.50XA Staphylococcus aureus bacteremia R78.81; B95.61 AISHA treated with BiPAP G47.33 Abscess of sacrum M46.28 Chronic anemia D64.9
--- NOTE | 2025-01-09 09:59 | Nephrology Progress Note ---
Date of Service January 09, 2025 Assessment & Plan (1) CHLOE (acute kidney injury): (2) Acute respiratory failure with hypoxia: (3) Staphylococcus aureus bacteremia: (4) Chronic anemia: (5) Proteinuria: (6) Hematuria: Plan 69-year-old gentleman with recent admission for sepsis with MSSA bacteremia and right septic hip joint, has been on IV cefazolin, admitted with progressive shortness of breath, volume overload, pulmonary congestion and CHLOE with significantly elevated BUN and creatinine. Renal ultrasound unremarkable. Urinalysis with proteinuria, microscopic hematuria but no bacteriuria. Volume status slightly improved although continues to be volume overloaded and specially with right-sided pleural effusion and pulmonary congestion. Acute kidney injury could be secondary to intravascular volume depletion with hypoalbuminemia however, if kidney function continues to worsen diuretic for last 2 days and has lower extremity edema and pulmonary congestion.. Possibility for sepsis related GN remains as complements were quite low during last admission and kidney function has been progressively worsening since last admission although blood culture has been negative and no leukocytosis. --Bumex 2 mg IV x 1 dose now and monitor intake and output closely, repeat renal panel this afternoon. If kidney function continues to worsen BUN continues to rise, may need a temporary dialysis catheter and short course of dialysis however with recent bacteremia, high risk for catheter related infection. --Epogen 21066 units x 1 dose today. --Dose medications for eGFR less than 30. --Continue antibiotic as per ID recommendation Admission and Anticipated Discharge Date Admission Date: January 06, 2025 Kasia Birmingham was seen and evaluated this morning. Reports feeling about the same, denied having significant shortness of breath. Urine output about 1.2 L over last 24 hours. Progressive worsening of kidney function noted in fact creatinine 3.2 mg/dl with significantly elevated BUN at 138. Blood pressure fair. Scheduled for thoracentesis later today. Review of Systems Review of Systems: Detailed review of system was done and pertinent positives and negatives are mentioned in HPI. Physical Exam Constitutional: WD/WN, vitals as above + ill appearing; no acute distress Eyes: + anicteric sclerae Neck: normal visual inspection Respiratory: Auscultation: + diminished lung sounds and + rales Cardiovascular: Rate/Rhythm: regular rate and regular rhythm Heart Sounds: normal S1 and normal S2 Extremities: + edema Skin: + erythema Neurologic: no focal motor deficits Psychiatric: Orientation: alert and oriented x 3 Affect: euthymic affect Results & Data Vital Signs (Past 12 Hours) Vital Signs Temp Pulse Pulse Resp BP BP Pulse Ox 01/09/25 08:06 36.6 C 108 H 20 96/58 L 93 01/09/25 07:34 01/09/25 07:00 88 20 91 01/09/25 04:15 21 01/09/25 02:48 36.7 C 84 20 118/74 95 01/09/25 02:34 81 18 98 01/09/25 00:15 36.6 C 79 20 104/68 95 01/08/25 23:09 91 H 01/08/25 22:24 86 18 98 01/08/25 22:21 86 18 98 O2 Del Method O2 Flow Rate FiO2 01/09/25 08:06 Oxymask 7 01/09/25 07:34 Oxymask 7 01/09/25 07:00 Oxymask 6 01/09/25 04:15 40 01/09/25 02:48 BiPAP 01/09/25 02:34 40 01/09/25 00:15 BiPAP 01/08/25 23:09 01/08/25 22:24 BiPAP 40 01/08/25 22:21 40 PG Care Time/CCT Total # of Minutes Spent Total Time Spent with Patient: Total time spent is greater than 50% in coordination of care (as documented) at patient's floor/unit and/or counseling patient: Coding Level of Care Code 14510 SUB INP/OBS CARE 3/50MIN Diagnoses CHLOE (acute kidney injury) N17.9 Acute respiratory failure with hypoxia J96.01 Staphylococcus aureus bacteremia R78.81; B95.61 Chronic anemia D64.9 Proteinuria R80.9 Hematuria R31.9
[2025-01-09] MEDS: BUMETANIDE 2 MG in SYRINGE 0 ML IV ONE (10:05)
--- NOTE | 2025-01-09 10:40 | Surgery Progress Note ---
Date of Service January 09, 2025 Assessment & Plan (1) Abscess of sacrum: Plan: POD#1 removal of what appeared to be a sebaceous cyst over the sacral region Pt reports no issues with wound overnight WBC 7.9, Hbg 7.7 (8.5); afib, wearing oxymask Will consult wound care for their assistance with dressing recommendations to perform in house and upon discharge May resume Xarelto if wound looks okay after wound care evaluation May f/u with Dr. Nesbitt in a couple weeks for wound check We will sign off at this time, but please call with any questions/concerns Admission and Anticipated Discharge Date Admission Date: January 06, 2025 Subjective Patient reports no complaints from his bottom since surgery yesterday. Physical Exam Physical Exam: awake, sitting up in chair wearing oxymask Gastrointestinal (Abdomen): did not examine buttocks as sitting in chair, wearing oxymask, reports no issues with wound overnight Results & Data Vital Signs (Past 12 Hours) Vital Signs Temp Pulse Pulse Resp BP BP Pulse Ox 01/09/25 08:06 97.9 F 108 H 20 96/58 L 93 01/09/25 07:34 01/09/25 07:00 88 20 91 01/09/25 04:15 21 01/09/25 02:48 98.1 F 84 20 118/74 95 01/09/25 02:34 81 18 98 01/09/25 00:15 97.9 F 79 20 104/68 95 01/08/25 23:09 91 H O2 Del Method O2 Flow Rate FiO2 01/09/25 08:06 Oxymask 7 01/09/25 07:34 Oxymask 7 01/09/25 07:00 Oxymask 6 01/09/25 04:15 40 01/09/25 02:48 BiPAP 01/09/25 02:34 40 01/09/25 00:15 BiPAP 01/08/25 23:09 PG Care Time/CCT Total # of Minutes Spent Total Time Spent with Patient: Total time spent is greater than 50% in coordination of care (as documented) at patient's floor/unit and/or counseling patient: Coding Level of Care Code 44442 Post Operative Follow-Up Diagnoses Abscess of sacrum M46.28
--- NOTE | 2025-01-09 11:19 | XRay Report ---
XR chest 1V not portable CLINICAL HISTORY: POST THORACENTESIS COMPARISON STUDY: 01/08/2025 FINDINGS: Stable right PICC. Stable cardiomegaly with mild pulmonary vascular congestion. Stable mild opacity at the left lung base. There is mild opacity at the right lung base with blunting of the rig ht costophrenic angle, improved. No pneumothorax seen. IMPRESSION: No pneumothorax. ACT 112: Negative or not required by law. Electronically signed by: Trevor Arteaga M.D. 01/09/2025 11:16 AM
--- NOTE | 2025-01-09 11:21 | Ultrasound Report ---
IR thoracentesis wo tube US CLINICAL HISTORY: Right-sided pleural effusion COMPARISON STUDY: 01/06/2025 and 12/22/2024 Technique: After the procedure was discussed and questions answered, consent was obtained. Patient wa s positioned seated upright. Preprocedure ultrasound demonstrates right pleural effusion. The right b ack was prepped and draped in standard sterile fashion. 1% lidocaine was used for local anesthesia. U nder ultrasound guidance, a thoracentesis catheter was advanced to the right pleural effusion from a posterior lower intercostal approach. 800 cc of straw-colored fluid was withdrawn. Catheter was remov ed. Hemostasis was obtained with manual compression. Sterile dressing was applied. Postprocedure ches t x-ray shows no pneumothorax. IMPRESSION: Right thoracentesis. ACT 112: Negative or not required by law. Electronically signed by: Trevor Arteaga M.D. 01/09/2025 11:20 AM
[2025-01-09 11:47] LABS: Appearance Pleural Fluid Hazy; Color Pleural Fluid Pale Yellow; RBC Pleural Fluid Auto < 2000 /uL; Source Pleural Fluid Right Lung; WBC Pleural Fluid Auto 372 /uL
[2025-01-09] MEDS: IRON SUCROSE 200 MG in SODIUM CHLORIDE 0.9% 100 ML IV SCH (11:50)
[2025-01-09 11:55] LABS: Base Excess VBG 6.0 mEq/L; HCO3 VBG 34 mmol/L; Oxygen Saturation VBG < 60.0 %; PCO2 VBG 70 mmHg (38-50); PO2 VBG 30 mmHg; pH VBG 7.29 (7.36-7.41)
[2025-01-09 12:01] LABS: Basophils, Fluid 1 %; Lymphocytes, Fluid 15 %; Mono,Macrophage,Mesothelial 66 %; Neutrophils, Fluid 18 %
[2025-01-09 12:29] LABS: Thyroid Stimulating Hormone 5.2 uIu/ml (0.300-4.500)
[2025-01-09] MEDS: EPOETIN ALFA 20,000 UNITS/ML VIAL SQ ONE (12:48)
[2025-01-09 13:04] LABS: T4 Free Thyroxine 0.89 ng/dl (0.61-1.60)
[2025-01-09 15:09] LABS: Base Excess VBG 5.6 mEq/L; HCO3 VBG 33 mmol/L; Oxygen Saturation VBG < 60.0 %; PCO2 VBG 58 mmHg (38-50); PO2 VBG 26 mmHg; pH VBG 7.36 (7.36-7.41)
[2025-01-09] MEDS ORDERED: Nursing to Pharmacy Communication SCH (16:00)
[2025-01-09 16:59] LABS: Albumin Level 2.8 gm/dl (3.4-5.0); Anion Gap 9.0 (3-11); Blood Urea Nitrogen 128.0 mg/dl (6-23); Calcium 8.9 mg/dl (8.6-10.3); Carbon Dioxide 31.0 mmol/L (21-32); Chloride 102.0 mmol/L (98-107); Creatinine Clr Calc Pharmacy 30.1 ml/min; Glucose 67.0 mg/dl (70-99(Fasting)); Potassium 4.3 mmol/L (3.5-5.1); Sodium 142.0 mmol/L (136-145)
[2025-01-09] MEDS: METOPROLOL TARTRATE 25 MG TAB PO SCH (21:07)
[2025-01-10 07:12] LABS: Hematocrit (blood only) 25.9 % (42.0-52.0); Hemoglobin 8.0 g/dL (14.0-18.0); Mean Corpuscular Hemoglobin 31.3 pg (25.0-34.0); Mean Corpuscular Volume 101.2 fL (80.0-100.0); Platelet Count 244 K/uL (130-400); RDW Standard Deviation 75.8 fL (36.4-46.3); Red Blood Count 2.56 M/uL (4.70-6.10); White Blood Count 7.85 K/ul (4.8-10.8)
[2025-01-10 07:42] LABS: Protein, Urine Random 226 mg/dL (5-25); Ur Albumin % 44 %; Ur Alpha-1-globulin % 8 %; Ur Alpha-2-globulin % 13 %; Ur Beta Globulin % 12 %; Ur Gamma Globulin % 23 %; Ur Protein/Creat Ratio mg/g 2484 mg/g creat (25-148); Urine Abnormal Protein Band 1 DNR mg/dL (NONE DETECTED); Urine Abnormal Protein Band 2 DNR mg/dL (NONE DETECTED); Urine Abnormal Protein Band 3 DNR mg/dL (NONE DETECTED)
[2025-01-10 08:06] LABS: Albumin Level 2.8 gm/dl (3.4-5.0); Anion Gap 9.0 (3-11); Blood Urea Nitrogen 132.0 mg/dl (6-23); Calcium 8.8 mg/dl (8.6-10.3); Carbon Dioxide 31.0 mmol/L (21-32); Chloride 100.0 mmol/L (98-107); Creatinine Clr Calc Pharmacy 29.3 ml/min; Glucose 100.0 mg/dl (70-99(Fasting)); Potassium 4.3 mmol/L (3.5-5.1); Sodium 140.0 mmol/L (136-145)
[2025-01-10] MEDS: LANTUS PER UNIT CHARGE SQ SCH (08:21)
--- NOTE | 2025-01-10 08:31 | Pulmonology Progress Note ---
Date of Service January 10, 2025 Assessment & Plan (1) Acute respiratory failure with hypoxia: (2) COPD (chronic obstructive pulmonary disease): (3) (HFpEF) heart failure with preserved ejection fraction: (4) Pulmonary hypertension: Plan CT chest 12/21/2024 personally reviewed: Centrilobular emphysema appreciated bilaterally Interlobular thickening appreciated in the upper lobes Left upper lobe granuloma Bilateral pleural effusion R>L Elevated right hemidiaphragm with dependent atelectasis of the right lower lobe Significant mediastinal and hilar lymphadenopathy, chronic 2D echo 12/06/2024: EF 60-65%, mild RV dilation, RVSP > 60 mmHg Spirometry 05/13/2023 personally reviewed: Moderate obstructive lung dysfunction FVC 3.92 L 76%, FEV1 2.07 L 54%, FEV1/FVC 53% --Acute hypoxic respiratory failure Respiratory BioFire negative for everything on 12/05/2024 BNP 547 Nasal MRSA negative, procalcitonin 0.16 --Bilateral pleural effusion Small to moderate on the right, minimal on the left Thoracentesis on 01/09/2025 Thoracentesis on with 800ml of straw colored fluid removed. Pleural studies consistent with transudative effusion. Gram stain negative. Culture pending. Cytology show negative for malignancy and showing histiocytes and mesothelial cells. Serum Protein: 5.6 Pleural fluid protein: <3 Serum LDH: 165 Pleural fluid LDH: 61 --COPD with emphysema On Trelegy 100 at home Not in exacerbation --AISHA On BiPAP / nightly --Pulmonary hypertension Combination of type II intensity --A-fib On Xarelto at home. Has been held since 01/05/25 for thoracentesis. Plan: Thoracentesis on with 800ml of straw colored fluid removed. Pleural studies consistent with transudative effusion. Gram stain negative. Culture pending. Cytology show negative for malignancy and showing histiocytes and mesothelial cells. Patient negative 890 ml in last 24hrs after 2mg bumex. Renal function remains elevated. Nephrology following. Patient would be okay with dialysis if needed. Continue Bipap /. Patient may use home Bipap machine as he tolerates it better. If hypoxia persists can bleed oxygen into device. Continue ISB Admission and Anticipated Discharge Date Admission Date: January 06, 2025 Supervising Physician Co-Signing Physician Notes I saw and evaluated the patient with JOSE Mejia, and agree with findings and plan as documented in the note. Patient seen and examined at bedside. No acute distress, no adverse events overnight He still had issues with the BiPAP from the hospital. He has the same settings on the BiPAP as he has on his home BiPAP I will probably increase the oxygen and his home BiPAP so that he is able to tolerate it well He was saturating 99% on 4 L nasal cannula when I saw him, and went down to 3 L Overall he says he is feeling the same when it comes to his breathing He did have thoracentesis done yesterday No nausea or vomiting Appetite is fair Constitutional: No acute distress HEENT: EOMI, PERRLA Respiratory system: Decreased air entry bilaterally, more decreased on the right , no wheeze, no rhonchi, positive crackles bilaterally CVS: S1-S2 positive, no murmurs or gallops, irregular rhythm Abdomen: Soft, nontender, nondistended, positive bowel sounds x4 Extremities: +2 pulses bilaterally radialis/ dorsalis pedis, no cyanosis, +3 pitting edema bilateral lower extremity Neuro: Awake alert oriented x3 Psych: Normal mood and affect G/U: Positive Watson Plan: In/out: -3.7 L since coming to the hospital Recommend to add oxygen or increase the oxygen and his home BiPAP Case discussed with RT S/p 800 mL of serous fluid removed from the right side, transudative as per lights criteria Continue with incentive spirometry Case was discussed with RN at bedside Please note the above document was generated using voice recognition software. It may contain grammatical, syntax or spelling errors.Any formal questions or concerns about the content, text or information contained within the body of this dictation should be directly addressed to the provider for clarification. Subjective Patient denies SOB. He feels as though he did not gain any improvement in his respiratory status post right thoracentesis. He was on oxymask 7L/min upon evaluation this am which was weaned to 4L by pulmonary team. Patient given 2mg of Bumex yesterday and negative 890ml in las 24 hrs with cumulative negative balance since admission of 4 liters. Nephrology following. Review of Systems 2 Review of Systems: All systems reviewed & are unremarkable except as noted in HPI & below Physical Exam 2 Physical Exam: VITALS: Reviewed. WEIGHT/BMI reviewed. GEN: Pleasant, well-developed, NAD. PSYCH: Good Judgment. AOx3. Normal memory, mood, and affect. HEENT -Head: NC/AT; -Eyes: PERRL, EOMI. No discharge or redn ess; -Ears: External ears are normal. -Nose: Normal nares. NECK: Supple, with no masses. CV: RRR, no m/r/g. LUNGS: Clear in b/l upper lobes. Diminished bases R>L. Chest rise symmetrical. Breathing nonlabored. ABD: N/A : N/A SKIN: Warm, well perfused. No skin rashes or abnormal lesions. MSK: No deformities, Normal gait. EXT: No clubbing, cyanosis, or edema. NEURO: Normal muscle strength and tone. No focal deficits. Results & Data Results & Data Vital Signs (Past 12 Hours) Vital Signs Temp Pulse Pulse Resp BP Pulse Ox O2 Del Method 01/10/25 07:44 36.0 C L 108 H 24 109/69 100 BiPAP 01/10/25 07:01 78 19 99 01/10/25 06:57 78 19 99 BiPAP 01/10/25 03:03 36.6 C 95 H 20 100/66 100 BiPAP 01/10/25 02:30 93 H 24 98 01/09/25 23:13 36.5 C 77 20 104/72 95 BiPAP 01/09/25 21:32 114 H FiO2 01/10/25 07:44 01/10/25 07:01 60 01/10/25 06:57 60 01/10/25 03:03 01/10/25 02:30 50 01/09/25 23:13 01/09/25 21:32 Laboratory Results 01/10/25 06:18 01/10/25 06:18 Abnormal Lab Results 01/07/25 01/09/25 01/09/25 13:00 10:50 11:27 WBC RBC Hgb Hct MCV MCH MCHC RDW Std Deviation RDW Coeff of Marce Plt Count MPV Absolute Nucleated RBC Nucleated RBC % (auto) VBG pH 7.29 L VBG pCO2 70 H VBG pO2 30 VBG HCO3 34 VBG O2 Saturation < 60.0 VBG Base Excess 6.0 Sodium Potassium Chloride Carbon Dioxide Anion Gap BUN Creatinine Est Cr Clr Drug Dosing eGFR BUN/Creatinine Ratio Glucose POC Glucose Calcium Phosphorus Albumin TSH 5.200 H Free T4 0.89 U Random Total Protein 226 H Ur Creatinine mg/dL 91 Protein/Creatinin Ratio 2.484 H Urine Albumin (%) 44 U Lwlzs-6-Hphdplkn (%) 8 U Asayr-0-Iyoygahq (%) 13 U Beta Globulin (%) 12 U Gamma Globulin (%) 23 U Abnormal Prot Band 1 DNR U Abnormal Prot Band 2 DNR U Abnormal Prot Band 3 DNR Urine PEP Interpret SEE NOTE Fluid Neutrophils % 18 Fluid Lymphocytes % 15 Fluid Basophils % 1 Fluid Meso/Macro/[place] % 66 Fluid Comment Pleural Fluid Source Right Lung Pleural Color Pale Yellow Pleural Appearance Hazy Pleural pH 7.53 H Pleural WBC (Auto) 372 Pleural RBC (Auto) < 2000 Pleural Total Protein < 3.0 Pleural LDH 61 Pleural Glucose 104 Pleural Amylase 01/09/25 01/09/25 01/09/25 12:25 12:40 14:55 WBC RBC Hgb Hct MCV MCH MCHC RDW Std Deviation RDW Coeff of Marce Plt Count MPV Absolute Nucleated RBC Nucleated RBC % (auto) VBG pH 7.36 VBG pCO2 58 H VBG pO2 26 VBG HCO3 33 VBG O2 Saturation < 60.0 VBG Base Excess 5.6 Sodium Potassium Chloride Carbon Dioxide Anion Gap BUN Creatinine Est Cr Clr Drug Dosing eGFR BUN/Creatinine Ratio Glucose POC Glucose 86 84 Calcium Phosphorus Albumin TSH Free T4 U Random Total Protein Ur Creatinine mg/dL Protein/Creatinin Ratio Urine Albumin (%) U Nnykz-4-Mlductyq (%) U Jxoja-4-Asyqhito (%) U Beta Globulin (%) U Gamma Globulin (%) U Abnormal Prot Band 1 U Abnormal Prot Band 2 U Abnormal Prot Band 3 Urine PEP Interpret Fluid Neutrophils % Fluid Lymphocytes % Fluid Basophils % Fluid Meso/Macro/[place] % Fluid Comment Pleural Fluid Source Pleural Color Pleural Appearance Pleural pH Pleural WBC (Auto) Pleural RBC (Auto) Pleural Total Protein Pleural LDH Pleural Glucose Pleural Amylase 01/09/25 01/09/25 01/09/25 15:57 16:35 20:02 WBC RBC Hgb Hct MCV MCH MCHC RDW Std Deviation RDW Coeff of Marce Plt Count MPV Absolute Nucleated RBC Nucleated RBC % (auto) VBG pH VBG pCO2 VBG pO2 VBG HCO3 VBG O2 Saturation VBG Base Excess Sodium 142 Potassium 4.3 Chloride 102 Carbon Dioxide 31 Anion Gap 9 BUN 128 H Creatinine 3.14 H Est Cr Clr Drug Dosing 30.1 eGFR 20.38 BUN/Creatinine Ratio 40.8 H Glucose 67 L POC Glucose 85 151 H Calcium 8.9 Phosphorus 5.5 H Albumin 2.8 L TSH Free T4 U Random Total Protein Ur Creatinine mg/dL Protein/Creatinin Ratio Urine Albumin (%) U Xzwgk-7-Fwrysqsn (%) U Deokb-7-Ktyepqlw (%) U Beta Globulin (%) U Gamma Globulin (%) U Abnormal Prot Band 1 U Abnormal Prot Band 2 U Abnormal Prot Band 3 Urine PEP Interpret Fluid Neutrophils % Fluid Lymphocytes % Fluid Basophils % Fluid Meso/Macro/[place] % Fluid Comment Pleural Fluid Source Pleural Color Pleural Appearance Pleural pH Pleural WBC (Auto) Pleural RBC (Auto) Pleural Total Protein Pleural LDH Pleural Glucose Pleural Amylase 01/10/25 01/10/25 06:18 07:31 WBC 7.85 RBC 2.56 L Hgb 8.0 L Hct 25.9 L MCV 101.2 H MCH 31.3 MCHC 30.9 L RDW Std Deviation 75.8 H RDW Coeff of Marce 20.4 H Plt Count 244 MPV 10.3 Absolute Nucleated RBC 0.02 Nucleated RBC % (auto) 0.3 VBG pH VBG pCO2 VBG pO2 VBG HCO3 VBG O2 Saturation VBG Base Excess Sodium 140 Potassium 4.3 Chloride 100 Carbon Dioxide 31 Anion Gap 9 BUN 132 H Creatinine 3.22 H Est Cr Clr Drug Dosing 29.3 eGFR 19.78 BUN/Creatinine Ratio 41.0 H Glucose 100 H POC Glucose 113 H Calcium 8.8 Phosphorus 5.9 H Albumin 2.8 L TSH Free T4 U Random Total Protein Ur Creatinine mg/dL Protein/Creatinin Ratio Urine Albumin (%) U Zipui-4-Oqgsyhsf (%) U Vruiu-2-Zlhkoupg (%) U Beta Globulin (%) U Gamma Globulin (%) U Abnormal Prot Band 1 U Abnormal Prot Band 2 U Abnormal Prot Band 3 Urine PEP Interpret Fluid Neutrophils % Fluid Lymphocytes % Fluid Basophils % Fluid Meso/Macro/[place] % Fluid Comment Pleural Fluid Source Pleural Color Pleural Appearance Pleural pH Pleural WBC (Auto) Pleural RBC (Auto) Pleural Total Protein Pleural LDH Pleural Glucose Pleural Amylase Diagnostic Findings Chest X-Ray 01/09/25 10:55 XR chest 1V not portable CLINICAL HISTORY: POST THORACENTESIS COMPARISON STUDY: 01/08/2025 FINDINGS: Stable right PICC. Stable cardiomegaly with mild pulmonary vascular congestion. Stable mild opacity at the left lung base. There is mild opacity at the right lung base with blunting of the right costophrenic angle, improved. No pneumothorax seen. IMPRESSION: No pneumothorax. ACT 112: Negative or not required by law. Electronically signed by: Trevor Arteaga M.D. 01/09/2025 11:16 AM Thoracentesis/Paracentesis US 01/09/25 12:06 IR thoracentesis wo tube US CLINICAL HISTORY: Right-sided pleural effusion COMPARISON STUDY: 01/06/2025 and 12/22/2024 Technique: After the procedure was discussed and questions answered, consent was obtained. Patient was positioned seated upright. Preprocedure ultrasound demonstrates right pleural effusion. The right back was prepped and draped in standard sterile fashion. 1% lidocaine was used for local anesthesia. Under ultrasound guidance, a thoracentesis catheter was advanced to the right pleural effusion from a posterior lower intercostal approach. 800 cc of straw-colored fluid was withdrawn. Catheter was removed. Hemostasis was obtained with manual compression. Sterile dressing was applied. Postprocedure chest x-ray shows no pneumothorax. IMPRESSION: Right thoracentesis. ACT 112: Negative or not required by law. Electronically signed by: Trevor Arteaga M.D. 01/09/2025 11:20 AM PG Care Time/CCT Total # of Minutes Spent Total Time Spent with Patient: Total time spent is greater than 50% in coordination of care (as documented) at patient's floor/unit and/or counseling patient: Coding Level of Care Code 80357 SUB INP/OBS CARE 2/35MIN Diagnoses Acute respiratory failure with hypoxia J96.01 COPD (chronic obstructive pulmonary disease) J44.9 (HFpEF) heart failure with preserved ejection fraction I50.30 Pulmonary hypertension I27.20
--- NOTE | 2025-01-10 10:04 | Nephrology Progress Note ---
Date of Service January 10, 2025 Assessment & Plan (1) CHLOE (acute kidney injury): (2) Acute respiratory failure with hypoxia: (3) Staphylococcus aureus bacteremia: (4) Chronic anemia: (5) Proteinuria: (6) Hematuria: Plan 69-year-old gentleman with recent admission for sepsis with MSSA bacteremia and right septic hip joint, has been on IV cefazolin, admitted with progressive shortness of breath, volume overload, pulmonary congestion and CHLOE with significantly elevated BUN and creatinine. Renal ultrasound unremarkable. Urinalysis with proteinuria, microscopic hematuria but no bacteriuria. Volume status slightly improved although continues to be volume overloaded and specially with right-sided pleural effusion and pulmonary congestion. Acute kidney injury could be secondary to intravascular volume depletion with hypoalbuminemia, possibility for sepsis related GN remains as complements were quite low during last admission. Creatinine may have peaked and say staying relatively stable over last 3 days with stable BUN although significantly elevated. Electrolyte acceptable. Decent urine output, slightly net negative. --Continue to monitor, kidney function, electrolyte and volume status, denies any uremic symptoms, no pressing indication to start on dialysis at this time. The fact that kidney function has been relatively stable over last 3 days that is somewhat reassuring, there is some possibility that kidney function may slowly start to improve next few days. --Epogen 01825 units x 1 dose given on 01/09/25, started on Venofer. --Dose medications for eGFR less than 30. --Continue antibiotic as per ID recommendation Admission and Anticipated Discharge Date Admission Date: January 06, 2025 Kasia Birmingham was seen and evaluated this morning. Reports feeling about the same, denied shortness of breath, did not notice any difference after right-sided thoracentesis yesterday. Decent urine output with slightly net negative. Kidney function has been staying relatively stable without further improvement for last 3 days. Electrolytes acceptable. Blood pressure fair. Review of Systems Review of Systems: Detailed review of system was done and pertinent positives and negatives are mentioned in HPI. Physical Exam Constitutional: WD/WN, vitals as above + ill appearing; no acute distress Eyes: + anicteric sclerae Respiratory: Auscultation: + diminished lung sounds Cardiovascular: Rate/Rhythm: regular rate and regular rhythm Heart Sounds: normal S1 and normal S2 Extremities: + edema Skin: + erythema Neurologic: no focal motor deficits Psychiatric: Orientation: alert and oriented x 3 Affect: euthymic affect Results & Data Vital Signs (Past 12 Hours) Vital Signs Temp Pulse Pulse Resp BP Pulse Ox O2 Del Method 01/10/25 08:00 Oxymask 01/10/25 07:44 36.0 C L 108 H 24 109/69 100 BiPAP 01/10/25 07:01 78 19 99 01/10/25 06:57 78 19 99 BiPAP 01/10/25 03:03 36.6 C 95 H 20 100/66 100 BiPAP 01/10/25 02:30 93 H 24 98 01/09/25 23:13 36.5 C 77 20 104/72 95 BiPAP O2 Flow Rate FiO2 01/10/25 08:00 5 01/10/25 07:44 01/10/25 07:01 60 01/10/25 06:57 60 01/10/25 03:03 01/10/25 02:30 50 01/09/25 23:13 PG Care Time/CCT Total # of Minutes Spent Total Time Spent with Patient: Total time spent is greater than 50% in coordination of care (as documented) at patient's floor/unit and/or counseling patient: Coding Level of Care Code 39942 SUB INP/OBS CARE 3/50MIN Diagnoses CHLOE (acute kidney injury) N17.9 Acute respiratory failure with hypoxia J96.01 Staphylococcus aureus bacteremia R78.81; B95.61 Chronic anemia D64.9 Proteinuria R80.9 Hematuria R31.9
[2025-01-10 11:23] LABS: Albumin 2.6 g/dL (3.8-4.8); Beta-1-Globulin 0.3 g/dL (0.4-0.6); Gamma Globulin 1.1 g/dL (0.8-1.7); Total Protein 5.6 g/dL (6.1-8.1)
[2025-01-10] MEDS: METOPROLOL TARTRATE 50 MG TAB PO SCH (12:00)
--- NOTE | 2025-01-10 18:29 | XRay Report ---
EXAM: X-ray chest one-view portable CLINICAL HISTORY: Hypoxia PRIORS: 01/09/2020 5 plain film, 12/21/[address] TECHNIQUE erect portable frontal FINDINGS: Right sided PICC catheter noted. Chest fairly well expanded. Improved appearance of the right lung base with less opacification. Mild diffuse interstitial changes noted, unchanged. Possible small bilateral pleural effusions, unchanged. Left lateral thorax oval or crescentic shape structure again noted measuring 5.2 cm. No radiopaque foreign body. Heart size unchanged. IMPRESSION: Mildly improved appearance of the right lower lobe with persistent small bilateral pleural effusions and interstitial prominence. Electronically signed by Fifi Hannon 01-10-2025 6:29 PM
--- NOTE | 2025-01-10 20:44 | Hospitalist Progress Note ---
Date of Service January 10, 2025 Assessment & Plan (1) Acute on chronic heart failure with preserved ejection fraction: (2) CHLOE (acute kidney injury): (3) Uremia: (4) Prosthetic joint infection: (5) Staphylococcus aureus bacteremia: (6) AISHA treated with BiPAP: (7) Abscess of sacrum: (8) Chronic anemia: Plan 69yo male with recent hospitalization for MSSA bacteremia (12/05 to 12/25) 2nd to infected right hip prosthesis. Presented from [facility] rehab due to leg swelling, hypoxia and shortness of breath. #Acute on chronic heart failure with preserved ejection fraction with resulting acute hypoxic/hypercapnic respiratory failure - -ongoing -had decompensated CHF during the prior admission as well -received IV diuresis early portion of this stay -diuresis then placed on hold with worsening CHLOE (see below) -clinically still volume overloaded with effusions, edema of LEs, increased O2 requirements, etc. -defer diuretic management to nephrology given his CHLOE -in addition to diastolic CHF his hypoalbuminemia, CHLOE, +/- cirrhosis also contributing to volume overload -repeat a cxr today #CHLOE/acute renal failure - -baseline Cr is ~1.4 to 1.5 -on hospital d/c on 12/25/24 his Cr was 2 -upon presentation 01/06 his Cr was 2.65 -now >3 with no improvement despite supportive care -CT imaging in November did not show any obstructive process -appreciate nephrology assistance -defer diuretic management to Dr Potter -daily BMP -need for temporary HD for volume control? defer that decision to Dr Potter -patient with cirrhotic appearing liver on imaging in November -urine Na level was 89 which makes hepatorenal syndrome unlikely (typically quite low with HRS) #right-sided pleural effusion - -s/p thoracentesis with 800ml removed -transudative fluid -no signs of infectious process -post-thora cxr w/o pneumothorax -repeat a cxr today #Left lower extremity ulcer - -local wound care -a wound cx was taken from this region, but no suspicion of infection or cellulitis #Sacral abscess - sebaceous cyst - -POD #2 s/p I & D and removal of the cyst by Dr Nesbitt -possible placement of woundvac tomorrow #Staph aureus bacteremia - -dx last admission in November -source - infected right THR -due to medical complexity and other factors, no plans for I/D or explantation of right hip hardware -continue cefazolin renally dosed with last date 01/28 -then cefadroxil for chronic oral suppression -RUE PICC line in place #BPH with urinary retention - -prior admission wolfe catheter removed prior to discharge -patient reports it was placed back at [facility] -consider trial without catheter prior to discharge but given current CHLOE will continue for accurate I&Os -continue tamsulosin #Nondisplaced right femoral periprosthetic intertrochanteric fracture - -Diagnosed last admission -no surgical Rx needed -WBAT #Chronic anemia - -cont to trend CBC -cont IV venofer as ordered by nephrology #Toe ulcers - -cont local wound care #Chronic atrial fibrillation/hypertension - -Xarelto on hold due to recent thoracentesis -cont metoprolol titrate BID but holding diltiazem -if he is off Xarelto for long period of time consider heparin bridge #COPD - -no exacerbation at this time -Duonebs PRN -Continue Trelegy #Type 2 Diabetes mellitus - -Stopped Jardiance due to CHLOE last admission -HbA1C 6.7% -NovoLog SSI -continue Lantus daily #Hyperlipidemia - -Continue atorvastatin #Chronic gout - -allopurinol held at [facility], uric acid 7.1 -resumed at lower dose/renal dosing (50mg q48h) #AISHA - -cont home BIPAP HS and naps -blend O2 into the BIPAP as needed VTE Prophylaxis - Xarelto - but placed on hold due to recent thoracentesis care d/w nephrology PT,OT as tolerated Admission and Anticipated Discharge Date Admission Date: January 06, 2025 Subjective patient awake/alert during the visit staff report that when he wears his BIPAP his O2 sats drop -asked staff to blend O2 into the BIPAP as needed denies dyspnea at rest eating is fair no right hip pain he is "bored" - asking about going home dismayed at how the last few months have gone Review of Systems Review of Systems: gen - weak, fatigued cv - no chest pain; ongoing edema pulm - no cough GI - no nausea/emesis -last stool 01/08 Physical Exam Physical Exam: gen - lying in bed, NAD, awake/alert neck - JVD present mouth - MMM heart - irregularly irregular, s1 s2, no murmur; tachy low 100s lungs - decreased BS right base, scattered rales b/l abd - soft NT ND BS+ ext - 3+ pitting edema from feet to knees b/l - no change psych - a/o x 3 neuro - ?asterixis vs tremor Results & Data Results & Data Vital Signs (Past 12 Hours) Vital Signs Temp Pulse Resp BP BP Pulse Ox O2 Del Method 01/10/25 19:48 89 18 90 Nasal Cannula 01/10/25 19:25 36.4 C L 100 H 18 125/80 92 Nasal Cannula 01/10/25 16:01 36.5 C 92 H 22 127/74 98 Nasal Cannula 01/10/25 14:53 87 94 Nasal Cannula 01/10/25 11:02 83 18 97 Oxymask 01/10/25 10:53 36.3 C L 99 H 23 111/72 99 Oxymask O2 Flow Rate 01/10/25 19:48 4 01/10/25 19:25 4 01/10/25 16:01 4 01/10/25 14:53 4 01/10/25 11:02 4 01/10/25 10:53 3 Laboratory Results Laboratory Results - last 24 hr 01/06/25 01/07/25 01/10/25 12:01 13:00 06:18 WBC 7.85 RBC 2.56 L Hgb 8.0 L Hct 25.9 L MCV 101.2 H MCH 31.3 MCHC 30.9 L RDW Std Deviation 75.8 H RDW Coeff of Marce 20.4 H Plt Count 244 MPV 10.3 Absolute Nucleated RBC 0.02 Nucleated RBC % (auto) 0.3 Sodium 140 Potassium 4.3 Chloride 100 Carbon Dioxide 31 Anion Gap 9 BUN 132 H Creatinine 3.22 H Est Cr Clr Drug Dosing 29.3 eGFR 19.78 BUN/Creatinine Ratio 41.0 H Glucose 100 H POC Glucose Calcium 8.8 Phosphorus 5.9 H Total Protein (PEP) 5.6 L Albumin 2.8 L Albumin (PEP) 2.6 L Vvtam-5-Ughleqtca 0.5 H Dgzqr-6-Uuvmdxzcv 0.7 Ksgx-7-Sreedkow 0.3 L Jqek-6-Qawvwjeg 0.3 Gamma Globulins 1.1 Monoclonal Peak 3 DNR Ser Monoclonl Protein DNR Ser Monoclonal Prot 2 DNR PEP Interpretation SEE NOTE U Random Total Protein 226 H Ur Creatinine mg/dL 91 Protein/Creatinin Ratio 2.484 H Urine Albumin (%) 44 U Fozcx-4-Plscyvdh (%) 8 U Ncggg-9-Cgrqgsph (%) 13 U Beta Globulin (%) 12 U Gamma Globulin (%) 23 U Abnormal Prot Band 1 DNR U Abnormal Prot Band 2 DNR U Abnormal Prot Band 3 DNR Urine PEP Interpret SEE NOTE 01/10/25 01/10/25 01/10/25 07:31 11:19 16:07 WBC RBC Hgb Hct MCV MCH MCHC RDW Std Deviation RDW Coeff of Marce Plt Count MPV Absolute Nucleated RBC Nucleated RBC % (auto) Sodium Potassium Chloride Carbon Dioxide Anion Gap BUN Creatinine Est Cr Clr Drug Dosing eGFR BUN/Creatinine Ratio Glucose POC Glucose 113 H 145 H 156 H Calcium Phosphorus Total Protein (PEP) Albumin Albumin (PEP) Frguz-6-Zckkfmkjo Hcymg-2-Hturocfag Nhxv-0-Kkakyxpy Wasu-3-Iutztlns Gamma Globulins Monoclonal Peak 3 Ser Monoclonl Protein Ser Monoclonal Prot 2 PEP Interpretation U Random Total Protein Ur Creatinine mg/dL Protein/Creatinin Ratio Urine Albumin (%) U Ojcun-6-Ceknworc (%) U Cttee-7-Vbcuvjtq (%) U Beta Globulin (%) U Gamma Globulin (%) U Abnormal Prot Band 1 U Abnormal Prot Band 2 U Abnormal Prot Band 3 Urine PEP Interpret PG Care Time/CCT Total # of Minutes Spent Total Time Spent with Patient: Total time spent is greater than 50% in coordination of care (as documented) at patient's floor/unit and/or counseling patient: Coding Level of Care Code 31227 SUB INP/OBS CARE 2/35MIN Diagnoses Acute on chronic heart failure with preserved ejection fraction I50.33 CHLOE (acute kidney injury) N17.9 Uremia N19 Prosthetic joint infection T84.50XA Staphylococcus aureus bacteremia R78.81; B95.61 AISHA treated with BiPAP G47.33 Abscess of sacrum M46.28 Chronic anemia D64.9
[2025-01-11 05:06] LABS: Hematocrit (blood only) 23.7 % (42.0-52.0); Hemoglobin 7.6 g/dL (14.0-18.0); Mean Corpuscular Hemoglobin 31.7 pg (25.0-34.0); Mean Corpuscular Volume 98.8 fL (80.0-100.0); Platelet Count 214 K/uL (130-400); RDW Standard Deviation 71.7 fL (36.4-46.3); Red Blood Count 2.40 M/uL (4.70-6.10); White Blood Count 8.38 K/ul (4.8-10.8)
[2025-01-11 05:21] LABS: Albumin Level 2.5 gm/dl (3.4-5.0); Anion Gap 9.0 (3-11); Blood Urea Nitrogen 123.0 mg/dl (6-23); Calcium 8.5 mg/dl (8.6-10.3); Carbon Dioxide 30.0 mmol/L (21-32); Chloride 100.0 mmol/L (98-107); Creatinine Clr Calc Pharmacy 28.7 ml/min; Glucose 91.0 mg/dl (70-99(Fasting)); Potassium 4.4 mmol/L (3.5-5.1); Sodium 139.0 mmol/L (136-145)
--- NOTE | 2025-01-11 08:47 | Pulmonology Progress Note ---
Date of Service January 11, 2025 Assessment & Plan (1) Acute respiratory failure with hypoxia: (2) COPD (chronic obstructive pulmonary disease): (3) (HFpEF) heart failure with preserved ejection fraction: (4) Pulmonary hypertension: Plan CT chest 12/21/2024 personally reviewed: Centrilobular emphysema appreciated bilaterally Interlobular thickening appreciated in the upper lobes Left upper lobe granuloma Bilateral pleural effusion R>L Elevated right hemidiaphragm with dependent atelectasis of the right lower lobe Significant mediastinal and hilar lymphadenopathy, chronic 2D echo 12/06/2024: EF 60-65%, mild RV dilation, RVSP > 60 mmHg Spirometry 05/13/2023 personally reviewed: Moderate obstructive lung dysfunction FVC 3.92 L 76%, FEV1 2.07 L 54%, FEV1/FVC 53% --Acute hypoxic respiratory failure Respiratory BioFire negative for everything on 12/05/2024 BNP 547 Nasal MRSA negative, procalcitonin 0.16 --Bilateral pleural effusion Small to moderate on the right, minimal on the left Thoracentesis on 01/09/2025 Thoracentesis on with 800ml of straw colored fluid removed. Pleural studies consistent with transudative effusion. Gram stain negative. Culture preliminarily negative. Cytology show negative for malignancy and showing histiocytes and mesothelial cells. Serum Protein: 5.6 Pleural fluid protein: <3 Serum LDH: 165 Pleural fluid LDH: 61 --COPD with emphysema On Trelegy 100 at home Not in exacerbation --AISHA On BiPAP nightly --Pulmonary hypertension Combination of type II intensity --A-fib On Xarelto at home. Has been held since 01/05/25 for thoracentesis. Plan: Thoracentesis on with 800ml of straw colored fluid removed. Pleural studies consistent with transudative effusion. Gram stain negative. Culture preliminarily negative. Cytology show negative for malignancy and showing histiocytes and mesothelial cells. Patient negative 100 ml in last 24hrs without any diuretics in last 24hr. Renal function remains elevated. Nephrology following. Patient would be okay with dialysis if needed. Continue Bipap will need to use Hospital Bipap machine due to concern regarding home bipap function. Please assess if home mask will fit Romero. Continue ISB Admission and Anticipated Discharge Date Admission Date: January 06, 2025 Supervising Physician Co-Signing Physician Notes I saw and evaluated the patient with JOSE Mejia, and agree with findings and plan as documented in the note. Patient seen and examined at bedside. No acute distress, no adverse events overnight He was on 8 L nasal cannula saturating 100%, he went down to 4 L. He did try to use his BiPAP overnight with oxygen bled into it but he still desaturated and had to be put on the hospital BiPAP machine Overall he states he is feeling the same Denies any chest pain Shortness of breath is at baseline. No hemoptysis, no hematochezia Appetite is fair Constitutional: No acute distress HEENT: EOMI, PERRLA Respiratory system: Decreased air entry bilaterally, more decreased on the right , no wheeze, no rhonchi, positive crackles bilaterally, more on the left side CVS: S1-S2 positive, no murmurs or gallops,, accentuated P2, irregular rhythm Abdomen: Soft, nontender, nondistended, positive bowel sounds x4 Extremities: +2 pulses bilaterally radialis/ dorsalis pedis, no cyanosis, +3 pitting edema bilateral lower extremity Neuro: Awake alert oriented x3 Psych: Normal mood and affect G/U: Positive Watson Plan: In/out: -3.7 L since coming to the hospital Given that the patient's home BiPAP has the same setting as ours and even after adding oxygen into the BiPAP patient desaturated significantly on it, I think there is an issue with patient's home BiPAP Continue with diuretics as tolerated Continue with incentive spirometry Case was discussed with RN at bedside Please note the above document was generated using voice recognition software. It may contain grammatical, syntax or spelling errors.Any formal questions or concerns about the content, text or information contained within the body of this dictation should be directly addressed to the provider for clarification. Subjective Patient denies SOB. He attempted to use home Bipap machine overnight but was noted to have hypoxia to the 80's even with oxygen bleeding into system. Patient placed on Romero with improvement of SpO2 to the 90's. On HFNC on exam this am 8L and weaned to 4 liters. Patient -100ml in last 24hrs. Renal function remains elevated. Review of Systems 2 Review of Systems: All systems reviewed & are unremarkable except as noted in HPI & below Physical Exam 2 Physical Exam: VITALS: Reviewed. WEIGHT/BMI reviewed. GEN: Pleasant, well-developed, NAD. PSYCH: Good Judgment. AOx3. Normal memory, mood, and affect. HEENT -Head: NC/AT; -Eyes: PERRL, EOMI. No discharge or redn ess; -Ears: External ears are normal. -Nose: Normal nares. NECK: Supple, with no masses. CV: RRR, no m/r/g. LUNGS: Clear in b/l upper lobes. Diminished bases R>L. Chest rise symmetrical. Breathing nonlabored. ABD: N/A : N/A SKIN: Warm, well perfused. No skin rashes or abnormal lesions. MSK: No deformities, Normal gait. EXT: No clubbing, cyanosis, or edema. NEURO: Normal muscle strength and tone. No focal deficits. Results & Data Results & Data Vital Signs (Past 12 Hours) Vital Signs Temp Pulse Pulse Resp BP Pulse Ox O2 Del Method 01/11/25 08:26 132 H 100/62 01/11/25 07:43 36.4 C L 115 H 22 98/60 L 91 High Flow Nasal Cannula 01/11/25 07:24 112 H 20 88 L Nasal Cannula 01/11/25 03:05 95 H 17 98 01/10/25 23:17 36.3 C L 91 H 18 118/79 100 Nasal Cannula, BiPAP 01/10/25 21:40 89 O2 Flow Rate FiO2 01/11/25 08:26 01/11/25 07:43 8 01/11/25 07:24 6 01/11/25 03:05 50 01/10/25 23:17 01/10/25 21:40 Laboratory Results 01/11/25 04:22 01/11/25 04:22 Abnormal Lab Results 01/06/25 01/10/25 01/10/25 12:01 11:19 16:07 WBC RBC Hgb Hct MCV MCH MCHC RDW Std Deviation RDW Coeff of Marce Plt Count MPV Absolute Nucleated RBC Nucleated RBC % (auto) Sodium Potassium Chloride Carbon Dioxide Anion Gap BUN Creatinine Est Cr Clr Drug Dosing eGFR BUN/Creatinine Ratio Glucose POC Glucose 145 H 156 H Calcium Phosphorus Total Protein (PEP) 5.6 L Albumin Albumin (PEP) 2.6 L Ndyzm-6-Lsmmievyq 0.5 H Hndrs-3-Synyeoyle 0.7 Dhop-1-Hgpsnpib 0.3 L Usyg-5-Zgblxpod 0.3 Gamma Globulins 1.1 Monoclonal Peak 3 DNR Ser Monoclonl Protein DNR Ser Monoclonal Prot 2 DNR PEP Interpretation SEE NOTE 01/11/25 01/11/25 04:22 07:09 WBC 8.38 RBC 2.40 L Hgb 7.6 L Hct 23.7 L MCV 98.8 MCH 31.7 MCHC 32.1 RDW Std Deviation 71.7 H RDW Coeff of Marce 19.8 H Plt Count 214 MPV 10.7 Absolute Nucleated RBC 0.02 Nucleated RBC % (auto) 0.2 Sodium 139 Potassium 4.4 Chloride 100 Carbon Dioxide 30 Anion Gap 9 BUN 123 H Creatinine 3.29 H Est Cr Clr Drug Dosing 28.7 eGFR 19.27 BUN/Creatinine Ratio 37.4 H Glucose 91 POC Glucose 119 H Calcium 8.5 L Phosphorus 5.9 H Total Protein (PEP) Albumin 2.5 L Albumin (PEP) Nvzyr-2-Kylixepuh Chkts-1-Gljeyeshu Fuob-3-Jwyxuyly Keox-3-Opimaxtm Gamma Globulins Monoclonal Peak 3 Ser Monoclonl Protein Ser Monoclonal Prot 2 PEP Interpretation Diagnostic Findings Chest X-Ray 01/10/25 17:38 EXAM: X-ray chest one-view portable CLINICAL HISTORY: Hypoxia PRIORS: 01/09/2020 5 plain film, 12/21/[address] TECHNIQUE erect portable frontal FINDINGS: Right sided PICC catheter noted. Chest fairly well expanded. Improved appearance of the right lung base with less opacification. Mild diffuse interstitial changes noted, unchanged. Possible small bilateral pleural effusions, unchanged. Left lateral thorax oval or crescentic shape structure again noted measuring 5.2 cm. No radiopaque foreign body. Heart size unchanged. IMPRESSION: Mildly improved appearance of the right lower lobe with persistent small bilateral pleural effusions and interstitial prominence. Electronically signed by Fifi Hannon 01-10-2025 6:29 PM PG Care Time/CCT Total # of Minutes Spent Total Time Spent with Patient: Total time spent is greater than 50% in coordination of care (as documented) at patient's floor/unit and/or counseling patient: Coding Level of Care Code 70313 SUB INP/OBS CARE 2/35MIN Diagnoses Acute respiratory failure with hypoxia J96.01 COPD (chronic obstructive pulmonary disease) J44.9 (HFpEF) heart failure with preserved ejection fraction I50.30 Pulmonary hypertension I27.20
--- NOTE | 2025-01-11 09:54 | Nephrology Progress Note ---
Date of Service January 11, 2025 Assessment & Plan (1) CHLOE (acute kidney injury): (2) Acute respiratory failure with hypoxia: (3) Staphylococcus aureus bacteremia: (4) Chronic anemia: (5) Proteinuria: (6) Hematuria: Plan 69-year-old gentleman with recent admission for sepsis with MSSA bacteremia and right septic hip joint, has been on IV cefazolin, admitted with progressive shortness of breath, volume overload, pulmonary congestion and CHLOE with significantly elevated BUN and creatinine. Renal ultrasound unremarkable. Urinalysis with proteinuria, microscopic hematuria but no bacteriuria. Volume status slightly improved although continues to be volume overloaded and specially with right-sided pleural effusion and pulmonary congestion. Acute kidney injury could be secondary to ATN, intravascular volume depletion with hypoalbuminemia, possibility for sepsis related GN remains as complements were quite low during last admission. Creatinine may have peaked and say staying relatively stable over last 5 days with some improvement in BUN although significantly elevated. Electrolyte acceptable. Decent urine output, slightly net negative. -- Bumex 2 mg IV x 1 dose now --continue to monitor, kidney function, electrolyte and volume status, denies any uremic symptoms, no pressing indication to start on dialysis at this time. The fact that kidney function has been relatively stable over last 5 days that is somewhat reassuring although frustrating that there is no meaningful improvement, some possibility that kidney function may slowly start to improve next few days. --Epogen 97910 units x 1 dose given on 01/09/25, started on Venofer. --Dose medications for eGFR less than 30. --Continue antibiotic as per ID recommendation -- If urine output drops, volume status worsen or electrolyte worsening, may need to start on dialysis over the weekend or early next week. Considering recent bacteremia, multiple wounds, high risk for catheter related bacteremia. Admission and Anticipated Discharge Date Admission Date: January 06, 2025 Kasia Birmingham was seen and evaluated this morning. He was sleepy but easily woke up, did not sleep well last night. Appetite decent, denied shortness of breath. Urine output slightly low but po intake has been low as well. Kidney function has been staying relatively stable without further improvement for last 5 days. Electrolytes acceptable. Blood pressure fair. No clear uremic symptoms. Review of Systems Review of Systems: Detailed review of system was done and pertinent positives and negatives are mentioned above. Physical Exam Constitutional: WD/WN, vitals as above + ill appearing; no acute distress Eyes: + anicteric sclerae Neck: normal visual inspection Respiratory: Auscultation: + diminished lung sounds and + rales Cardiovascular: Rate/Rhythm: regular rate and regular rhythm Heart Sounds: normal S1 and normal S2 Extremities: + edema (2 +) Gastrointestinal (Abdomen): Inspection/Auscultation: abdomen normal to inspection Percussion/Palpation: abdomen soft; abdomen nontender Skin: + erythema Neurologic: no focal motor deficits Psychiatric: Orientation: alert and oriented x 3 Affect: euthymic affect Results & Data Vital Signs (Past 12 Hours) Vital Signs Temp Pulse Pulse Resp BP Pulse Ox O2 Del Method 01/11/25 08:26 132 H 100/62 01/11/25 08:12 Nasal Cannula 01/11/25 07:43 36.4 C L 115 H 22 98/60 L 91 High Flow Nasal Cannula 01/11/25 07:24 112 H 20 88 L Nasal Cannula 01/11/25 03:05 95 H 17 98 01/10/25 23:17 36.3 C L 91 H 18 118/79 100 Nasal Cannula, BiPAP O2 Flow Rate FiO2 01/11/25 08:26 01/11/25 08:12 5 01/11/25 07:43 8 01/11/25 07:24 6 01/11/25 03:05 50 01/10/25 23:17 PG Care Time/CCT Total # of Minutes Spent Total Time Spent with Patient: Total time spent is greater than 50% in coordination of care (as documented) at patient's floor/unit and/or counseling patient: Coding Level of Care Code 38884 SUB INP/OBS CARE 3/50MIN Diagnoses CHLOE (acute kidney injury) N17.9 Acute respiratory failure with hypoxia J96.01 Staphylococcus aureus bacteremia R78.81; B95.61 Chronic anemia D64.9 Proteinuria R80.9 Hematuria R31.9
[2025-01-11] MEDS: BUMETANIDE 2 MG in SYRINGE 0 ML IV ONE (11:50)
--- NOTE | 2025-01-11 18:40 | Hospitalist Progress Note ---
Date of Service January 11, 2025 Assessment & Plan (1) Acute on chronic heart failure with preserved ejection fraction: (2) CHLOE (acute kidney injury): (3) Uremia: (4) Prosthetic joint infection: (5) Staphylococcus aureus bacteremia: (6) AISHA treated with BiPAP: (7) Abscess of sacrum: (8) Chronic anemia: Plan 69yo male with recent hospitalization for MSSA bacteremia (12/05 to 12/25) 2nd to infected right hip prosthesis. Presented from [facility] rehab due to leg swelling, hypoxia and shortness of breath. #CHLOE/acute renal failure - -baseline Cr is ~1.4 to 1.5 -on hospital d/c on 12/25/24 his Cr was 2 -upon presentation 01/06 his Cr was 2.65 -Cr remains >3 with very high BUN levels -no significant improvement in urine output or his creatinine despite supportive care and intermittent bumex -CT imaging in November did not show any obstructive process -appreciate nephrology assistance -defer diuretic management to nephrology -daily BMP -need for temporary HD for volume control? defer that decision to nephrology -indications for HD if HD felt necessary - volume overload, +/- uremic symptoms -patient with cirrhotic appearing liver on imaging in November -urine Na level was 89 which makes hepatorenal syndrome unlikely (typically quite low with HRS) -urine Cr 18.5 -of note - FeNa very high - suggestive of ATN -AIN possible from IV antibiotics but less likely (no rash, no eosinophilia, etc) #acute metabolic encephalopathy - -likely 2nd to very high BUN / uremia -check VBG - r/o recurrent hypercapnia -with known cirrhosis on imaging recheck ammonia level -cont BIPAP while sleeping -avoid sedatives #acute on chronic heart failure with preserved ejection fraction with resulting acute hypoxic/hypercapnic respiratory failure - -ongoing -had decompensated CHF during the prior admission as well -received IV diuresis early portion of this stay -diuresis was placed on hold with worsening CHLOE but now back to getting intermittent doses of bumex to challenge his kidneys and effect some diuresis -clinically still volume overloaded with effusions, edema of LEs, worsening arm edema, increased O2 requirements, etc. -defer diuretic management to nephrology -in addition to diastolic CHF his hypoalbuminemia, CHLOE, +/- cirrhosis also contributing to volume overload #right-sided pleural effusion - -s/p thoracentesis with 800ml removed -transudative fluid -no signs of infectious process; culture negative -post-thora cxr w/o pneumothorax -repeat cxr last pm - R effusion is not reaccumulating #Left lower extremity ulcer on raza - -local wound care with Aquacel Ag + Optifoam dressing -a wound cx was taken from this region showing multiple pathogens, but no suspicion of infection or cellulitis based on clinical exam of his ulcer -monitor the wound #Sacral abscess - sebaceous cyst - -POD #3 s/p I & D and removal of the cyst by Dr Nesbitt -woundvac now in place #Staph aureus bacteremia - -dx last admission in November -source - infected right THR -due to medical complexity and other factors, no plans for I/D or explantation of right hip hardware -continue cefazolin renally dosed with last date 01/28 -then cefadroxil for chronic oral suppression -RUE PICC line in place #BPH with urinary retention - -prior admission wolfe catheter removed prior to discharge -patient reports it was placed back at [facility] -continue tamsulosin -cont wolfe #Nondisplaced right femoral periprosthetic intertrochanteric fracture - -Diagnosed last admission -no surgical Rx needed -WBAT #Chronic anemia - -cont to trend CBC daily -cont IV venofer as ordered by nephrology #Toe ulcers - -cont local wound care #Chronic atrial fibrillation/hypertension - -Xarelto on hold due to recent thoracentesis -cont metoprolol titrate 50mg BID but holding diltiazem -if he is off Xarelto for long period of time consider heparin bridge #COPD - -no exacerbation at this time -Duonebs PRN -Continue Trelegy #Type 2 Diabetes mellitus - -Stopped Jardiance due to CHLOE last admission -HbA1C 6.7% -NovoLog SSI -continue Lantus daily #Hyperlipidemia - -Continue atorvastatin #Chronic gout - -allopurinol held at [facility], uric acid 7.1 -resumed at lower dose/renal dosing (50mg q48h) #AISHA - -cont home BIPAP 17/ HS and naps -blend O2 into the BIPAP as needed VTE Prophylaxis - Xarelto - but placed on hold due to recent thoracentesis and ?needing temporary HD catheter placement?? care d/w nephrology PT,OT when able pt's daughter updated by phone this evening Admission and Anticipated Discharge Date Admission Date: January 06, 2025 Subjective tele overnight - a.fib, rates low 100s during the visit patient was on his BIPAP he was very sleepy he did wake up to his name being called; answered some basic questions; but quickly fell back asleep unable to elicit full history or ROS due to lethargy very poor PO intake today Review of Systems Review of Systems: Unobtainable due to cognitive status Physical Exam Physical Exam: gen - lying in bed, NAD, BIPAP in place; lethargy/sleepy; myoclonic jerks noted of legs neck - JVD present mouth - MMM heart - irregularly irregular, s1 s2, no murmur; tachy lungs - decreased BS right base, scattered rales b/l, no increased work of breathing abd - soft NT BS+; abdominal wall edema? ext - 2+ pitting edema from feet to knees b/l - no change; edema of arms b/l also noted psych - lethargic/sleepy; does awaken to name, but quickly falls back asleep neuro - ?asterixis vs mycoclonic jerks Results & Data Results & Data Vital Signs (Past 12 Hours) Vital Signs Temp Pulse Pulse Resp BP Pulse Ox O2 Del Method 01/11/25 15:36 118 H 20 93 High Flow Nasal Cannula 01/11/25 15:26 36.8 C 104 H 22 106/67 96 High Flow Nasal Cannula 01/11/25 12:11 36.7 C 87 20 122/80 100 BiPAP 01/11/25 11:44 89 31 H 98 01/11/25 11:37 110 H 22 85 L High Flow Nasal Cannula 01/11/25 08:26 132 H 100/62 01/11/25 08:12 Nasal Cannula 01/11/25 07:43 36.4 C L 115 H 22 98/60 L 91 High Flow Nasal Cannula 01/11/25 07:24 112 H 20 88 L Nasal Cannula O2 Flow Rate FiO2 01/11/25 15:36 13 01/11/25 15:26 15 01/11/25 12:11 17 01/11/25 11:44 50 01/11/25 11:37 15 01/11/25 08:26 01/11/25 08:12 5 01/11/25 07:43 8 01/11/25 07:24 6 Laboratory Results Laboratory Results - last 48 hr 01/06/25 01/07/25 01/10/25 12:01 13:00 06:18 WBC 7.85 RBC 2.56 L Hgb 8.0 L Hct 25.9 L MCV 101.2 H MCH 31.3 MCHC 30.9 L RDW Std Deviation 75.8 H RDW Coeff of Marce 20.4 H Plt Count 244 MPV 10.3 Absolute Nucleated RBC 0.02 Nucleated RBC % (auto) 0.3 VBG pH VBG pCO2 VBG pO2 VBG HCO3 VBG O2 Saturation VBG Base Excess Sodium 140 Potassium 4.3 Chloride 100 Carbon Dioxide 31 Anion Gap 9 BUN 132 H Creatinine 3.22 H Est Cr Clr Drug Dosing 29.3 eGFR 19.78 BUN/Creatinine Ratio 41.0 H Glucose 100 H POC Glucose Calcium 8.8 Phosphorus 5.9 H Ammonia Total Protein (PEP) 5.6 L Albumin 2.8 L Albumin (PEP) 2.6 L Ahdww-8-Nyqqbkvzj 0.5 H Ablvq-9-Ardzzkgmt 0.7 Xuws-8-Eunydupg 0.3 L Iqqc-4-Brqtacin 0.3 Gamma Globulins 1.1 Monoclonal Peak 3 DNR Ser Monoclonl Protein DNR Ser Monoclonal Prot 2 DNR PEP Interpretation SEE NOTE U Random Total Protein 226 H Ur Creatinine mg/dL 91 Protein/Creatinin Ratio 2.484 H Urine Albumin (%) 44 U Ackzd-1-Gmqylsrp (%) 8 U Pkqpf-2-Pdbsmwdo (%) 13 U Beta Globulin (%) 12 U Gamma Globulin (%) 23 U Abnormal Prot Band 1 DNR U Abnormal Prot Band 2 DNR U Abnormal Prot Band 3 DNR Urine PEP Interpret SEE NOTE 01/10/25 01/10/25 01/10/25 07:31 11:19 16:07 WBC RBC Hgb Hct MCV MCH MCHC RDW Std Deviation RDW Coeff of Marce Plt Count MPV Absolute Nucleated RBC Nucleated RBC % (auto) VBG pH VBG pCO2 VBG pO2 VBG HCO3 VBG O2 Saturation VBG Base Excess Sodium Potassium Chloride Carbon Dioxide Anion Gap BUN Creatinine Est Cr Clr Drug Dosing eGFR BUN/Creatinine Ratio Glucose POC Glucose 113 H 145 H 156 H Calcium Phosphorus Ammonia Total Protein (PEP) Albumin Albumin (PEP) Yqima-5-Xroeiebts Agpmb-7-Ueqfidtap Gmax-3-Zwsvocfh Jzuu-9-Zdtehaky Gamma Globulins Monoclonal Peak 3 Ser Monoclonl Protein Ser Monoclonal Prot 2 PEP Interpretation U Random Total Protein Ur Creatinine mg/dL Protein/Creatinin Ratio Urine Albumin (%) U Cfxep-1-Lxoyosgw (%) U Nomsr-8-Ejtuersg (%) U Beta Globulin (%) U Gamma Globulin (%) U Abnormal Prot Band 1 U Abnormal Prot Band 2 U Abnormal Prot Band 3 Urine PEP Interpret 01/11/25 01/11/25 01/11/25 04:22 07:09 10:57 WBC 8.38 RBC 2.40 L Hgb 7.6 L Hct 23.7 L MCV 98.8 MCH 31.7 MCHC 32.1 RDW Std Deviation 71.7 H RDW Coeff of Marce 19.8 H Plt Count 214 MPV 10.7 Absolute Nucleated RBC 0.02 Nucleated RBC % (auto) 0.2 VBG pH VBG pCO2 VBG pO2 VBG HCO3 VBG O2 Saturation VBG Base Excess Sodium 139 Potassium 4.4 Chloride 100 Carbon Dioxide 30 Anion Gap 9 BUN 123 H Creatinine 3.29 H Est Cr Clr Drug Dosing 28.7 eGFR 19.27 BUN/Creatinine Ratio 37.4 H Glucose 91 POC Glucose 119 H 181 H Calcium 8.5 L Phosphorus 5.9 H Ammonia Total Protein (PEP) Albumin 2.5 L Albumin (PEP) Xzvgl-4-Nxdduubsk Lmump-1-Sszshkvwc Ylpg-6-Ziojwiiw Pdxx-9-Veqrxrcs Gamma Globulins Monoclonal Peak 3 Ser Monoclonl Protein Ser Monoclonal Prot 2 PEP Interpretation U Random Total Protein Ur Creatinine mg/dL Protein/Creatinin Ratio Urine Albumin (%) U Tlgso-7-Gzlzouty (%) U Hbway-2-Oqjcstmo (%) U Beta Globulin (%) U Gamma Globulin (%) U Abnormal Prot Band 1 U Abnormal Prot Band 2 U Abnormal Prot Band 3 Urine PEP Interpret Diagnostic Findings Microbiology 01/06/25 11:20 Blood Aerobic Blood Culture - Final No growth in Aerobic bottle after 5 days. 01/06/25 11:20 Blood Anaerobic Blood Culture - Final No growth in Anaerobic bottle after 5 days. 01/06/25 11:28 Blood Aerobic Blood Culture - Final No growth in Aerobic bottle after 5 days. 01/06/25 11:28 Blood Anaerobic Blood Culture - Final No growth in Anaerobic bottle after 5 days. 01/09/25 10:50 Pleural Fluid Gram Stain - Final 01/09/25 10:50 Pleural Fluid Aerobic and Anaerobic Culture - Preliminary No growth to date. 01/06/25 14:50 Leg,Left Gram Stain - Final 01/06/25 14:50 Leg,Left Aerobic and Anaerobic Culture - Final Enterobacter cloacae complex Pseudomonas aeruginosa Goldie tropicalis 01/09/25 10:50 Pleural Fluid Acid Fast Bacilli Smear - Final 01/06/25 11:32 Urine,Clean Catch Urine Culture - Final No growth - less than 1,000 colonies/mL. PG Care Time/CCT Total # of Minutes Spent Total Time Spent with Patient: Total time spent is greater than 50% in coordination of care (as documented) at patient's floor/unit and/or counseling patient: Coding Level of Care Code 47901 SUB INP/OBS CARE 3/50MIN Diagnoses Acute on chronic heart failure with preserved ejection fraction I50.33 CHLOE (acute kidney injury) N17.9 Uremia N19 Prosthetic joint infection T84.50XA Staphylococcus aureus bacteremia R78.81; B95.61 AISHA treated with BiPAP G47.33 Abscess of sacrum M46.28 Chronic anemia D64.9
[2025-01-11 19:36] LABS: Base Excess VBG 6.1 mEq/L; HCO3 VBG 32 mmol/L; Oxygen Saturation VBG 88.4 %; PCO2 VBG 49 mmHg (38-50); PO2 VBG 53 mmHg; pH VBG 7.42 (7.36-7.41)
[2025-01-12 06:52] LABS: Hematocrit (blood only) 25.2 % (42.0-52.0); Hemoglobin 8.0 g/dL (14.0-18.0); Mean Corpuscular Hemoglobin 31.6 pg (25.0-34.0); Mean Corpuscular Volume 99.6 fL (80.0-100.0); Platelet Count 205 K/uL (130-400); RDW Standard Deviation 70.4 fL (36.4-46.3); Red Blood Count 2.53 M/uL (4.70-6.10); White Blood Count 8.61 K/ul (4.8-10.8)
[2025-01-12 07:20] LABS: Albumin Level 2.8 gm/dl (3.4-5.0); Anion Gap 8.0 (3-11); Blood Urea Nitrogen 126.0 mg/dl (6-23); Calcium 8.5 mg/dl (8.6-10.3); Carbon Dioxide 32.0 mmol/L (21-32); Chloride 100.0 mmol/L (98-107); Creatinine Clr Calc Pharmacy 27.9 ml/min; Glucose 92.0 mg/dl (70-99(Fasting)); Potassium 4.3 mmol/L (3.5-5.1); Sodium 140.0 mmol/L (136-145)
--- NOTE | 2025-01-12 09:10 | Pulmonology Progress Note ---
Date of Service January 12, 2025 Assessment & Plan (1) Acute respiratory failure with hypoxia: (2) COPD (chronic obstructive pulmonary disease): (3) (HFpEF) heart failure with preserved ejection fraction: (4) Pulmonary hypertension: Plan CT chest 12/21/2024 personally reviewed: Centrilobular emphysema appreciated bilaterally Interlobular thickening appreciated in the upper lobes Left upper lobe granuloma Bilateral pleural effusion R>L Elevated right hemidiaphragm with dependent atelectasis of the right lower lobe Significant mediastinal and hilar lymphadenopathy, chronic 2D echo 12/06/2024: EF 60-65%, mild RV dilation, RVSP > 60 mmHg Spirometry 05/13/2023 personally reviewed: Moderate obstructive lung dysfunction FVC 3.92 L 76%, FEV1 2.07 L 54%, FEV1/FVC 53% --Acute hypoxic respiratory failure Respiratory BioFire negative for everything on 12/05/2024 BNP 547 Nasal MRSA negative, procalcitonin 0.16 --Bilateral pleural effusion Small to moderate on the right, minimal on the left Thoracentesis on 01/09/2025 Thoracentesis on with 800ml of straw colored fluid removed. Pleural studies consistent with transudative effusion. Gram stain negative. Culture preliminarily negative. Cytology show negative for malignancy and showing histiocytes and mesothelial cells. Serum Protein: 5.6 Pleural fluid protein: <3 Serum LDH: 165 Pleural fluid LDH: 61 --COPD with emphysema On Trelegy 100 at home Not in exacerbation --AISHA On BiPAP nightly --Pulmonary hypertension Combination of type II intensity --A-fib On Xarelto at home. Has been held since 01/05/25 for thoracentesis. Plan: In/out: -4.2 L since coming to the hospital Patient's oxygen requirement is getting worse He was on 10 L and he was still saturating 87-88%. I spoke with RT to put him on high flow Given the worsening kidney function and him requiring more oxygen I think the best approach would be to dialyze the patient Case was discussed with nephrology who were in agreement. Dialysis catheter will be placed today so that he can be dialyzed Continue with BiPAP nightly and as needed shortness of breath Continue with incentive spirometry Case was discussed with RN, primary team and nephrology at bedside I spent more than 50 minutes looking in the chart, images, discussing the plan of care with the patient, RN as well as primary team Please note the above document was generated using voice recognition software. It may contain grammatical, syntax or spelling errors.Any formal questions or concerns about the content, text or information contained within the body of this dictation should be directly addressed to the provider for clarification. Admission and Anticipated Discharge Date Admission Date: January 06, 2025 Subjective Patient seen and examined at bedside. No acute distress Overnight patient did use the BiPAP He was saturating 87-88% on 10 L nasal cannula Overall he said he is feeling the same Unfortunately has not made any urine since at least midnight. Denied any chest pain, no cough No dizziness, no palpitation Appetite is poor Was more lethargic today Review of Systems 2 Review of Systems: All systems reviewed & are unremarkable except as noted in Subjective Physical Exam 2 Physical Exam: Constitutional: No acute distress HEENT: EOMI, PERRLA Respiratory system: Decreased air entry bilaterally, more decreased on the right , no wheeze, no rhonchi, positive crackles bilaterally, more on the left side CVS: S1-S2 positive, no murmurs or gallops,, accentuated P2, irregular rhythm Abdomen: Soft, nontender, nondistended, positive bowel sounds x4 Extremities: +2 pulses bilaterally radialis/ dorsalis pedis, no cyanosis, +3 pitting edema bilateral lower extremity Neuro: Awake alert oriented x3 Psych: Normal mood and affect G/U: Positive Watson Skin: no rashes, warm and dry Lymphatic: no cervical or axillary lymphadenopathy Results & Data Results & Data Vital Signs (Past 12 Hours) Vital Signs Temp Pulse Pulse Resp BP BP Pulse Ox 01/12/25 07:56 36.5 C 102 H 20 97/59 L 95 01/12/25 07:17 103 H 20 100 01/12/25 03:39 36.3 C L 102 H 20 112/72 100 01/12/25 03:35 101 H 20 97 01/11/25 23:06 88 20 96 01/11/25 22:52 36.7 C 99 H 20 117/70 98 O2 Del Method O2 Flow Rate FiO2 01/12/25 07:56 High Flow Nasal Cannula 10 01/12/25 07:17 70 01/12/25 03:39 BiPAP 01/12/25 03:35 50 01/11/25 23:06 50 01/11/25 22:52 BiPAP Laboratory Results 01/12/25 06:25 01/12/25 06:25 PG Care Time/CCT Total # of Minutes Spent Total Time Spent with Patient: Total time spent is greater than 50% in coordination of care (as documented) at patient's floor/unit and/or counseling patient: Coding Level of Care Code 32380 SUB INP/OBS CARE 3/50MIN Diagnoses Acute respiratory failure with hypoxia J96.01 COPD (chronic obstructive pulmonary disease) J44.9 (HFpEF) heart failure with preserved ejection fraction I50.30 Pulmonary hypertension I27.20
--- NOTE | 2025-01-12 12:27 | Nephrology Progress Note ---
Date of Service January 12, 2025 Assessment & Plan (1) CHLOE (acute kidney injury): Plan: Non-oliguric. No signs of renal recovery. Madhu is notably azotemic with progressive symptoms of uremia. He remains volume overloaded despite diuretics. I discussed the role for hemodialysis to replace some aspects of his kidney function while monitoring for recovery. Madhu was receptive. Dr. Keyes offered to place a temporary hemodialysis catheter. Once the catheter is secure, hemodialysis will be initiated (first treatment today versus tomorrow). I have entered orders in to the EHR and reviewed with the bean sprout laborer. Hepatitis screening has been requested. The etiology of CHLOE is not clear. ATN is very likely but I cannot exclude underlying GN or interstitial nephritis. Ultimately, kidney biopsy may be required for definitive diagnosis. 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 Urine studies will be repeated today. Serum complement levels will be rechecked with next blood work. Watson remains intact. Cefazolin 2 grams administered this AM. Once dialysis is initiated, I will discuss adjusting the dosing of the medication for IHD. Plan on at least holding the scheduled dose for tomorrow AM until after HD. Medications are otherwise appropriately dosed for kidney dysfunction/IHD. Document strict I/O's. Repeat a serum metabolic profile tomorrow AM. (2) Acute respiratory failure with hypoxia: Plan: Remains volume overloaded with significant pulmonary hypertension. I discussed the patient/plan of care with Dr. Keyes this AM. Will attempt gentle ultrafiltration with WIRE DRAWER. (3) Staphylococcus aureus bacteremia: Plan: Remains on Cefazolin. Antibiotic dosing will be adjusted for IHD. (4) Chronic anemia: Plan: H/H stable. Epogen 76631 units x 1 dose on 01/09/25. Venofer 200 mg IV daily day #4/5. Admission and Anticipated Discharge Date Admission Date: January 06, 2025 Subjective Madhu was resting comfortable in bed this morning. He remembers me from his prior admission. He is very weak and expressed understandable frustration that his condition has not improved. He is breathing comfortably at rest but experiences increased work of breathing with minimal activity. He denies chest pains or palpitations. No fevers or chills. Appetite is very poor. Confusion and disorientation have been noted particularly overnight. Madhu states that he is not sleeping well. He denies pain but his sacrum is uncomfortable. He is non- oliguric. The Watson catheter is not bothersome. I discussed the patient with Dr. Keyes and Dr. Mae. I updated Madhu's (Layla) by phone. Layla and Madhu were receptive to starting dialysis treatments. Risks and benefits were reviewed. Review of Systems Review of Systems: All systems reviewed & are unremarkable except as noted in HPI & below Physical Exam Constitutional: + ill appearing and + frail appearing; n o acute distress Eyes: + anicteric sclerae ENMT: external ear and nose normal, oropharynx normal Mouth: + dry oral mucous membranes Neck: normal visual inspection and trachea midline Respiratory: normal respiratory effort; no respiratory distress Auscultation: lungs clear to auscultation bilaterally and + diminished lung sounds Cardiovascular: Rate/Rhythm: regular rate Heart Sounds: normal S1 and normal S2 Extremities: + edema (+1 L>R pitting/dependent) Musculoskeletal: Extremities: no cyanosis and no clubbing Skin: normal turgor; no jaundice Neurologic: Motor/Sensory: no tremor and no asterixis Psychiatric: Orientation: alert and oriented x 3 Results & Data Vital Signs (Past 12 Hours) Vital Signs Temp Pulse Pulse Resp BP BP Pulse Ox 01/12/25 11:46 104 H 22 90 01/12/25 11:23 36.5 C 80 18 113/77 90 01/12/25 11:14 103 H 18 88 L 01/12/25 07:56 36.5 C 102 H 20 97/59 L 95 01/12/25 07:18 105 H 20 100 01/12/25 07:17 103 H 20 100 01/12/25 03:39 36.3 C L 102 H 20 112/72 100 01/12/25 03:35 101 H 20 97 O2 Del Method O2 Flow Rate FiO2 01/12/25 11:46 High Flow Nasal Cannula 40 90 01/12/25 11:23 High Flow Nasal Cannula 10 01/12/25 11:14 Nasal Cannula 8 01/12/25 07:56 High Flow Nasal Cannula 10 01/12/25 07:18 BiPAP 70 01/12/25 07:17 70 01/12/25 03:39 BiPAP 01/12/25 03:35 50 Laboratory Results Laboratory Results - last 24 hr 1101/11/25 01/11/25 16:05 19:16 19:37 WBC RBC Hgb Hct MCV MCH MCHC RDW Std Deviation RDW Coeff of Marce Plt Count MPV Absolute Nucleated RBC Nucleated RBC % (auto) VBG pH 7.42 H VBG pCO2 49 VBG pO2 53 VBG HCO3 32 VBG O2 Saturation 88.4 VBG Base Excess 6.1 Sodium Potassium Chloride Carbon Dioxide Anion Gap BUN Creatinine Est Cr Clr Drug Dosing eGFR BUN/Creatinine Ratio Glucose POC Glucose 123 H 176 H Calcium Phosphorus Ammonia 36.0 Albumin Hep Bs Antigen Hep Bs Antibody Hep Bs Antibody, Quant Hep B Core IgM Ab 01/12/25 01/12/25 01/12/25 06:25 07:38 11:11 WBC 8.61 RBC 2.53 L Hgb 8.0 L Hct 25.2 L MCV 99.6 MCH 31.6 MCHC 31.7 L RDW Std Deviation 70.4 H RDW Coeff of Marce 19.3 H Plt Count 205 MPV 11.0 Absolute Nucleated RBC 0.03 Nucleated RBC % (auto) 0.3 VBG pH VBG pCO2 VBG pO2 VBG HCO3 VBG O2 Saturation VBG Base Excess Sodium 140 Potassium 4.3 Chloride 100 Carbon Dioxide 32 Anion Gap 8 BUN 126 H Creatinine 3.46 H Est Cr Clr Drug Dosing 27.9 eGFR 18.14 BUN/Creatinine Ratio 36.4 H Glucose 92 POC Glucose 113 H 159 H Calcium 8.5 L Phosphorus 6.0 H Ammonia Albumin 2.8 L Hep Bs Antigen Hep Bs Antibody Hep Bs Antibody, Quant Hep B Core IgM Ab 01/12/25 12:01 WBC RBC Hgb Hct MCV MCH MCHC RDW Std Deviation RDW Coeff of Marce Plt Count MPV Absolute Nucleated RBC Nucleated RBC % (auto) VBG pH VBG pCO2 VBG pO2 VBG HCO3 VBG O2 Saturation VBG Base Excess Sodium Potassium Chloride Carbon Dioxide Anion Gap BUN Creatinine Est Cr Clr Drug Dosing eGFR BUN/Creatinine Ratio Glucose POC Glucose Calcium Phosphorus Ammonia Albumin Hep Bs Antigen Pending Hep Bs Antibody Pending Hep Bs Antibody, Quant Pending Hep B Core IgM Ab Pending PG Care Time/CCT Total # of Minutes Spent Total Time Spent with Patient: Total time spent is greater than 50% in coordination of care (as documented) at patient's floor/unit and/or counseling patient: Coding Level of Care Code 97804 SUB INP/OBS CARE 3/50MIN Diagnoses CHLOE (acute kidney injury) N17.9 Acute respiratory failure with hypoxia J96.01 Staphylococcus aureus bacteremia R78.81; B95.61 Chronic anemia D64.9
[2025-01-12 13:13] LABS: Hep B Surface Ag with confirm Negative (Negative)
[2025-01-12 13:36] LABS: Bacteria Urine Automated None Seen (None Seen); Cast Urine Automated >20 /lpf (0-2); RBC Urine Automated >20 /hpf (0-2); WBC Urine Automated >50 /hpf (0-5)
--- NOTE | 2025-01-12 14:14 | Procedure Note ---
Procedure Note Date of Service January 12, 2025 Procedure: Inserting ultrasound-guided dialysis catheter Sheet Finisher: Dr. Forrest Keyes Indication: Acute on chronic renal failure Consent: Signed by patient and verified with timeout prior to procedure. Anesthesia: 1% lidocaine without epinephrine local. Procedure: Consent was verified and timeout performed. Appropriate imaging studies were reviewed prior to the procedure. Under aseptic and sterile condition, right IJ vein was accessed under direct ultrasound guidance. Guidewire was confirmed to be within the lumen of vein with the help of ultrasound. Catheter was introduced via Seldinger technique. Guide a wire was removed. Good non-pulsatile blood flow was appreciated from all the ports. The catheter was placed at 16 cm and sutured in place. BioPatch was applied to the catheter and a sterile Tegaderm dressing was applied over the catheter with careful attention to sterility. Lung sliding was appreciated post procedure with the help ultrasound. Chest x-ray to follow Patient tolerated the procedure well. Blood loss: Less than 2 cc Complications: None [facility] [place] Procedure Codes (Charges) Tubes, Drains, and Vasc Access Procedure 1: Tubes, Drains, and Vasc Access: [id number] Insertion of cannula for hemodialysis Procedure 2: Tubes, Drains, and Vasc Access: [id number] Ultrasound Guidance For Vascular Coding CPT Codes Tubes, Drains, and Vasc Access - Tubes, Drains, and Vasc Access: [id number] Insertion of cannula for hemodialysis ([id number]) Tubes, Drains, and Vasc Access - Tubes, Drains, and Vasc Access: [id number] Ultrasound Guidance For Vascular ([id number]) Additional Codes Date of Service (PG.SURGERY)
--- NOTE | 2025-01-12 14:29 | XRay Report ---
EXAM: Radiograph of the Chest 1 View INDICATION: Line placement TECHNIQUE: Frontal view of the chest. Image obtained at 1:40 PM COMPARISON: 01/10/2025 FINDINGS: Lungs and pleural spaces: Stable bilateral airspace consolidation and small pleural effusions. Increased pulmonary vascular congestion. No pneumothorax. Heart: Stable large cardiac shadow. Mediastinum: Normal contour. Bones/joints: No fracture, erosion or dislocation. Soft tissues: No abnormality noted. Tubes, lines and devices: Right peripherally inserted central catheter (PICC) tip in the distal superior vena cava. Right internal jugular central venous catheter tip in the distal superior vena cava. Upper abdomen: No abnormality noted. IMPRESSION: 1. Worsening CHF. 2. Lines and tubes as above. ACT 112: N/A Electronically signed by Carol Rausch 01-12-2025 2:29 PM
--- NOTE | 2025-01-12 21:08 | Hospitalist Progress Note ---
Date of Service January 12, 2025 Assessment & Plan (1) Acute on chronic heart failure with preserved ejection fraction: (2) CHLOE (acute kidney injury): (3) Uremia: (4) Prosthetic joint infection: (5) Staphylococcus aureus bacteremia: (6) AISHA treated with BiPAP: (7) Abscess of sacrum: (8) Chronic anemia: Plan 69yo male with recent hospitalization for MSSA bacteremia (12/05 to 12/25) 2nd to infected right hip prosthesis. Presented from [facility] rehab due to leg swelling, hypoxia and shortness of breath. #CHLOE/acute renal failure - -baseline Cr is ~1.4 to 1.5 -on hospital d/c on 12/25/24 his Cr was 2 -upon presentation 01/06 his Cr was 2.65 -Cr remains >3 with very high BUN levels and he is uremic (fatigued/lethargic, myoclonic jerks, etc) -despite supportive care, periodic IV diuretics, etc there has been no improvement -I spoke with Dr Nicolas from [facility] [place] - plan is for temporary HD catheter placement today followed by first HD session -etiology of CHLOE is uncertain -patient with cirrhotic appearing liver on imaging in November -urine Na level was 89 which makes hepatorenal syndrome unlikely (typically quite low with HRS) -urine Cr 18.5 -FeNa very high - suggestive of ATN -AIN possible from IV antibiotics but less likely (no rash, no eosinophilia, etc) -recent complement levels were low which 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 -complements to be rechecked -recent u/a with blood/protein which may suggest GN -Dr Nicolas did mention the possibility of getting a kidney bx at some point -appreciate ICU and nephrology assistance -BMP am #acute metabolic encephalopathy - -likely 2nd to very high BUN / uremia -checked VBG - no hypercapnia -with known cirrhosis on imaging rechecked ammonia level - wnl -cont BIPAP while sleeping -avoid sedatives #acute on chronic heart failure with preserved ejection fraction with resulting acute hypoxic/hypercapnic respiratory failure - -had decompensated CHF during the prior admission as well -received IV diuresis early portion of this stay -diuresis was placed on hold with worsening CHLOE but now back to getting intermittent doses of bumex to challenge his kidneys and effect some diuresis -clinically still volume overloaded with effusions, edema of LEs, worsening arm edema, increased O2 requirements, etc. -in addition to diastolic CHF his hypoalbuminemia, severe CHLOE, +/- cirrhosis also contributing to volume overload -to initiate HD today for volume control and Rx of uremia #right-sided pleural effusion - -s/p thoracentesis with 800ml removed -transudative fluid -no signs of infectious process; culture negative -post-thora cxr w/o pneumothorax #Left lower extremity ulcer on raza - -local wound care with Aquacel Ag + Optifoam dressing -a wound cx was taken from this region showing multiple pathogens, but still no suspicion of infection or cellulitis based on clinical exam of his ulcer -cont to monitor the wound #Sacral abscess - sebaceous cyst - -POD #4 s/p I & D and removal of the cyst by Dr Nesbitt -woundvac now in place #Staph aureus bacteremia - -dx last admission in November -source - infected right THR -due to medical complexity and other factors, no plans for I/D or explantation of right hip hardware -continue cefazolin renally dosed with last date 01/28 -then cefadroxil for chronic oral suppression -RUE PICC line in place #BPH with urinary retention - -prior admission wolfe catheter removed prior to discharge -patient reports it was placed back at [facility] -continue tamsulosin -cont wolfe #Nondisplaced right femoral periprosthetic intertrochanteric fracture - -Diagnosed last admission -no surgical Rx needed -WBAT #Chronic anemia - -cont to trend CBC daily -cont IV venofer as ordered by nephrology #Toe ulcers - -cont local wound care #Chronic atrial fibrillation/hypertension - -Xarelto on hold due to recent thoracentesis and need for HD catheter placement -cont metoprolol titrate 50mg BID but holding diltiazem -if he is off Xarelto for long period of time consider heparin bridge -otherwise try to resume Xarelto or similar soon #COPD - -no exacerbation at this time -Duonebs PRN -Continue Trelegy #Type 2 Diabetes mellitus - -Stopped Jardiance due to CHLOE last admission -HbA1C 6.7% -continue NovoLog SSI -continue Lantus daily at 5 units #Hyperlipidemia - -Continue atorvastatin #Chronic gout - -allopurinol held at [facility], uric acid 7.1 -resumed at lower dose/renal dosing (50mg q48h) #AISHA - -cont home BIPAP HS and naps -blend O2 into the BIPAP as needed VTE Prophylaxis - Xarelto - but placed on hold due to recent thoracentesis and needing temporary HD catheter placement timing of resumption? care d/w nephrology care d/w ICU attending PT,OT when able pt's daughter updated by phone again today - she is aware that HD catheter is being placed and HD will be started today Admission and Anticipated Discharge Date Admission Date: January 06, 2025 Subjective very sleepy during the visit wakes up to name being called, talks for about a minute or so, then falls asleep again denies dyspnea at rest but requiring a fair amount of O2 denies abd pain very poor appetite, but blames it on the type of food we have at the hospital, etc. willing to do dialysis Review of Systems Review of Systems: CV - no chest pain pulm - no dyspnea at rest, minimal cough GI - no N/V; last stool ?? Physical Exam Physical Exam: gen - lying in bed, NAD, sleepy much like yesterday; myoclonic jerks noted of legs once again neck - JVD present mouth - MMM heart - irregularly irregular, s1 s2, no murmur; tachy lungs - decreased BS right base, scattered rales b/l, mild tachypea noted abd - soft NT BS+; abdominal wall edema ext - 2-3+ pitting edema from feet to knees b/l - no change; edema of arms b/l psych - sleepy skin - ulcer left raza - mild exudate but no surrounding cellulitis, no foul odor, etc. Results & Data Results & Data Vital Signs (Past 12 Hours) Vital Signs Temp Pulse Pulse Pulse Resp BP BP 01/12/25 20:49 110 H 22 01/12/25 19:38 109 H 18 01/12/25 19:14 36.5 C 87 18 114/72 01/12/25 16:10 36.5 C 86 112/77 01/12/25 15:36 111 H 18 01/12/25 15:31 36.5 C 112 H 18 01/12/25 15:30 92 H 115/73 01/12/25 15:00 69 112/77 01/12/25 14:30 84 107/74 01/12/25 14:01 82 108/76 11/22/25 13:55 36.5 C 99 H 01/12/25 11:46 104 H 22 01/12/25 11:23 36.5 C 80 18 01/12/25 11:14 103 H 18 BP Pulse Ox O2 Del Method O2 Flow Rate FiO2 01/12/25 20:49 93 High Flow Nasal Cannula 45 70 01/12/25 19:38 90 High Flow Nasal Cannula 35 50 01/12/25 19:14 93 High Flow Nasal Cannula 35 50 01/12/25 16:10 01/12/25 15:36 100 High Flow Nasal Cannula 35 60 01/12/25 15:31 99 High Flow Nasal Cannula 01/12/25 15:30 01/12/25 15:00 01/12/25 14:30 01/12/25 14:01 01/12/25 13:55 01/12/25 11:46 90 High Flow Nasal Cannula 40 90 01/12/25 11:23 113/77 90 High Flow Nasal Cannula 10 01/12/25 11:14 88 L Nasal Cannula 8 Laboratory Results Laboratory Results - last 48 hr 01/11/25 01/11/25 01/11/25 10:57 16:05 19:16 WBC RBC Hgb Hct MCV MCH MCHC RDW Std Deviation RDW Coeff of Marce Plt Count MPV Absolute Nucleated RBC Nucleated RBC % (auto) VBG pH 7.42 H VBG pCO2 49 VBG pO2 53 VBG HCO3 32 VBG O2 Saturation 88.4 VBG Base Excess 6.1 Sodium Potassium Chloride Carbon Dioxide Anion Gap BUN Creatinine Est Cr Clr Drug Dosing eGFR BUN/Creatinine Ratio Glucose POC Glucose 181 H 123 H Calcium Phosphorus Ammonia 36.0 Albumin Urine WBC (Auto) Urine RBC (Auto) U Hyaline Cast (Auto) U Epithel Cells (Auto) Urine Bacteria (Auto) Amorphous Sediment Granular Casts Hep Bs Antigen Hep Bs Antibody Hep Bs Antibody, Quant 01/11/25 01/12/25 01/12/25 19:37 06:25 07:38 WBC 8.61 RBC 2.53 L Hgb 8.0 L Hct 25.2 L MCV 99.6 MCH 31.6 MCHC 31.7 L RDW Std Deviation 70.4 H RDW Coeff of Marce 19.3 H Plt Count 205 MPV 11.0 Absolute Nucleated RBC 0.03 Nucleated RBC % (auto) 0.3 Sodium 140 Potassium 4.3 Chloride 100 Carbon Dioxide 32 Anion Gap 8 BUN 126 H Creatinine 3.46 H Est Cr Clr Drug Dosing 27.9 eGFR 18.14 BUN/Creatinine Ratio 36.4 H Glucose 92 POC Glucose 176 H 113 H Calcium 8.5 L Phosphorus 6.0 H Albumin 2.8 L PG Care Time/CCT Total # of Minutes Spent Total Time Spent with Patient: Total time spent is greater than 50% in coordination of care (as documented) at patient's floor/unit and/or counseling patient: Coding Level of Care Code 32637 SUB INP/OBS CARE 3/50MIN Diagnoses Acute on chronic heart failure with preserved ejection fraction I50.33 CHLOE (acute kidney injury) N17.9 Uremia N19 Prosthetic joint infection T84.50XA Staphylococcus aureus bacteremia R78.81; B95.61 AISHA treated with BiPAP G47.33 Abscess of sacrum M46.28 Chronic anemia D64.9
--- NOTE | 2025-01-13 09:35 | Pulmonology Progress Note ---
Date of Service January 13, 2025 Assessment & Plan (1) Acute respiratory failure with hypoxia: (2) COPD (chronic obstructive pulmonary disease): (3) (HFpEF) heart failure with preserved ejection fraction: (4) Pulmonary hypertension: Plan 69-year-old male coming to the hospital for shortness of breath. Pulmonary consulted for hypoxia and pleural effusion Past medical history: COPD with emphysema, pulmonary hypertension, AISHA on BiPAP, A-fib on Xarelto CT chest 12/21/2024 personally reviewed: Centrilobular emphysema appreciated bilaterally Interlobular thickening appreciated in the upper lobes Left upper lobe granuloma Bilateral pleural effusion R>L Elevated right hemidiaphragm with dependent atelectasis of the right lower lobe Significant mediastinal and hilar lymphadenopathy, chronic 2D echo 12/06/2024: EF 60-65%, mild RV dilation, RVSP > 60 mmHg Spirometry 05/13/2023 personally reviewed: Moderate obstructive lung dysfunction FVC 3.92 L 76%, FEV1 2.07 L 54%, FEV1/FVC 53% --Acute hypoxic respiratory failure Respiratory BioFire negative for everything on 12/05/2024 BNP 547 Nasal MRSA negative, procalcitonin 0.16 --Bilateral pleural effusion Small to moderate on the right, minimal on the left Thoracentesis on 01/09/2025 Thoracentesis on with 800ml of straw colored fluid removed. Pleural studies consistent with transudative effusion. Gram stain negative. Culture preliminarily negative. Cytology show negative for malignancy and showing histiocytes and mesothelial cells. Culture from the pleural fluid is growing Staphylococcus hemolyticus, I think this is most likely contaminant Patient is already on antibiotics to begin with Serum Protein: 5.6 Pleural fluid protein: <3 Serum LDH: 165 Pleural fluid LDH: 61 --COPD with emphysema On Trelegy 100 at home Not in exacerbation --AISHA On BiPAP nightly --Pulmonary hypertension Combination of type II intensity --A-fib On Xarelto at home. Has been held since 01/05/25 for thoracentesis. Plan: Continue with dialysis Continue with diuretics to keep the patient negative balance Continue with BiPAP nightly and as needed shortness of breath Continue with incentive spirometry Can consider future thoracentesis if the patient's pleural effusion is getting worse even after persistent dialysis No further recommendation from pulmonary perspective, will sign off Please call directly with any questions Case was discussed with RN, primary team and nephrology at bedside Please note the above document was generated using voice recognition software. It may contain grammatical, syntax or spelling errors.Any formal questions or concerns about the content, text or information contained within the body of this dictation should be directly addressed to the provider for clarification. Admission and Anticipated Discharge Date Admission Date: January 06, 2025 Subjective Patient seen and examined at the dialysis unit today He was saturating 99% on 10 L nasal cannula, I went down to 6 L. He stated that he felt better after 1 L of fluid was removed yesterday by dialysis Plan is to remove 2.5 L today Denied any chest pain No headache, no nausea, no vomiting Appetite is fair Did use BiPAP overnight Review of Systems 2 Review of Systems: All systems reviewed & are unremarkable except as noted in Subjective Physical Exam 2 Physical Exam: Constitutional: No acute distress HEENT: EOMI, PERRLA Respiratory system: Decreased air entry bilaterally, more decreased on the right , no wheeze, no rhonchi, positive crackles bilaterally, more on the left side CVS: S1-S2 positive, no murmurs or gallops,, accentuated P2, irregular rhythm Abdomen: Soft, nontender, nondistended, positive bowel sounds x4 Extremities: +2 pulses bilaterally radialis/ dorsalis pedis, no cyanosis, +2 pitting edema bilateral lower extremity Neuro: Awake alert oriented x3 Psych: Normal mood and affect G/U: Positive Watson Skin: no rashes, warm and dry Lymphatic: no cervical or axillary lymphadenopathy Results & Data Results & Data Vital Signs (Past 12 Hours) Vital Signs Temp Pulse Pulse Pulse Resp BP Pulse Ox 01/13/25 07:08 36.6 C 108 H 18 115/68 94 01/13/25 06:58 114 H 22 95 01/13/25 03:30 96 H 22 99 01/13/25 02:06 36.5 C 119 H 18 107/71 100 01/12/25 22:33 36.7 C 105 H 18 104/71 100 01/12/25 22:30 110 H 17 96 O2 Del Method O2 Flow Rate FiO2 01/13/25 07:08 High Flow Nasal Cannula 01/13/25 06:58 High Flow Nasal Cannula, Oxyhood 45 50 01/13/25 03:30 40 01/13/25 02:06 CPAP 50 01/12/25 22:33 BiPAP, High Flow Nasal Cannula 50 01/12/25 22:30 50 Laboratory Results 01/12/25 06:25 01/12/25 06:25 PG Care Time/CCT Total # of Minutes Spent Total Time Spent with Patient: Total time spent is greater than 50% in coordination of care (as documented) at patient's floor/unit and/or counseling patient: Coding Level of Care Code 38581 SUB INP/OBS CARE 2/35MIN Diagnoses Acute respiratory failure with hypoxia J96.01 COPD (chronic obstructive pulmonary disease) J44.9 (HFpEF) heart failure with preserved ejection fraction I50.30 Pulmonary hypertension I27.20
--- NOTE | 2025-01-13 09:45 | Nephrology Progress Note ---
Date of Service January 13, 2025 Assessment & Plan (1) CHLOE (acute kidney injury): Plan: Non-oliguric. Madhu started HD 01/12/25 for advanced kidney dysfunction with uremia and volume overload. Dr. Keyes placed a temporary hemodialysis catheter without complications. Madhu tolerated HD well. Orders for a second treatment have been entered into the EHR today and reviewed with the doweler. We will provide additional clearance and UF as tolerated. I will also plan to run a full dialysis treatment tomorrow. The etiology of CHLOE is not clear. Urine microscopy continues to demonstrate WBCs, RBCs, +hyaline and granular casts. There is a component of ATN but I cannot exclude underlying GN or interstitial nephritis. Ultimately, kidney biopsy would be required for definitive diagnosis. Post infectious or C3 glomerulopathy remain in the differential and repeat complement levels have been sent. Cefazolin dosed daily (post dialysis on HD days). Medications are appropriately dosed for kidney function. Document strict I/O's. Check a BMP tomorrow AM prior to HD. (2) Acute respiratory failure with hypoxia: Plan: Remains volume overloaded with significant pulmonary hypertension. Will attempt gentle ultrafiltration with [employer]. (3) Staphylococcus aureus bacteremia: Plan: Remains on Cefazolin. Antibiotic dosing adjusted for IHD. The medication can be held accordingly when appropriate for TDC placement or kidney biopsy. (4) Chronic anemia: Plan: H/H stable. Epogen 18214 units x 1 dose on 01/09/25. Venofer 200 mg IV daily day #5/. (5) Chronic atrial fibrillation: Plan: Xarelto dosed appropriately for kidney dysfunction restarted today. Admission and Anticipated Discharge Date Admission Date: January 06, 2025 Subjective Madhu tolerated HD well yesterday. He reports feeling very tired after treatment. He slept well overnight on BIPAP. He continues to deny dyspnea at rest but notes that his breathing is labored with minimal activity. He is out of bed to chair this morning. Madhu is experiencing some mild lightheadedness. He continues to deny any chest pains or palpitations. No fevers or chills. Pain in sacrum is reasonably controlled with pain medications. He remains very weak; "it takes everything I have just to hold myself up." Non-oliguric. Watson remains intact draining clear yellow urine. Review of Systems Review of Systems: All systems reviewed & are unremarkable except as noted in HPI & below Physical Exam Constitutional: + ill appearing and + frail appearing; n o acute distress Eyes: + anicteric sclerae ENMT: external ear and nose normal, oropharynx normal Mouth: + dry oral mucous membranes Neck: normal visual inspection and trachea midline RIJ HD catheter Respiratory: + tachypneic; no respiratory distress Auscultation: lungs clear to auscultation bilaterally and + diminished lung sounds Cardiovascular: Rate/Rhythm: regular rate Heart Sounds: normal S1 and normal S2 Extremities: + edema (+1 L>R pitting/dependent) Musculoskeletal: Extremities: no cyanosis and no clubbing Skin: normal turgor; no jaundice Neurologic: Motor/Sensory: no tremor and no asterixis Psychiatric: Orientation: alert and oriented x 3 Results & Data Vital Signs (Past 12 Hours) Vital Signs Temp Pulse Pulse Pulse Resp BP Pulse Ox 01/13/25 07:08 36.6 C 108 H 18 115/68 94 01/13/25 07:00 122 H 01/13/25 06:58 114 H 22 95 01/13/25 03:30 96 H 22 99 01/13/25 02:06 36.5 C 119 H 18 107/71 100 01/12/25 22:33 36.7 C 105 H 18 104/71 100 01/12/25 22:30 110 H 17 96 O2 Del Method O2 Flow Rate FiO2 01/13/25 07:08 High Flow Nasal Cannula 01/13/25 07:00 01/13/25 06:58 High Flow Nasal Cannula, Oxyhood 45 50 01/13/25 03:30 40 01/13/25 02:06 CPAP 50 01/12/25 22:33 BiPAP, High Flow Nasal Cannula 50 01/12/25 22:30 50 Laboratory Results Laboratory Results - last 24 hr 01/12/25 01/12/25 01/12/25 11:11 12:01 12:55 POC Glucose 159 H Urine WBC (Auto) >50 H Urine RBC (Auto) >20 H U Hyaline Cast (Auto) >20 H U Epithel Cells (Auto) 6-10 H Urine Bacteria (Auto) None Seen Amorphous Sediment Present A Granular Casts Present A Complement C3 Complement C4 Tot Complement (CH50) Hep Bs Antigen Negative Hep Bs Antibody Non-Immune Hep Bs Antibody, Quant < 3.00 Hep B Core IgM Ab Pending 01/12/25 01/12/25 01/13/25 16:19 20:09 07:11 POC Glucose 118 H 147 H 106 H Urine WBC (Auto) Urine RBC (Auto) U Hyaline Cast (Auto) U Epithel Cells (Auto) Urine Bacteria (Auto) Amorphous Sediment Granular Casts Complement C3 Complement C4 Tot Complement (CH50) Hep Bs Antigen Hep Bs Antibody Hep Bs Antibody, Quant Hep B Core IgM Ab 01/13/25 09:41 POC Glucose Urine WBC (Auto) Urine RBC (Auto) U Hyaline Cast (Auto) U Epithel Cells (Auto) Urine Bacteria (Auto) Amorphous Sediment Granular Casts Complement C3 Pending Complement C4 Pending Tot Complement (CH50) Pending Hep Bs Antigen Hep Bs Antibody Hep Bs Antibody, Quant Hep B Core IgM Ab PG Care Time/CCT Total # of Minutes Spent Total Time Spent with Patient: Total time spent is greater than 50% in coordination of care (as documented) at patient's floor/unit and/or counseling patient: Coding Level of Care Code 85465 SUB INP/OBS CARE 3/50MIN Diagnoses CHLOE (acute kidney injury) N17.9 Acute respiratory failure with hypoxia J96.01 Staphylococcus aureus bacteremia R78.81; B95.61 Chronic anemia D64.9 Chronic atrial fibrillation I48.20
[2025-01-13 09:57] LABS: Hematocrit (blood only) 25.9 % (42.0-52.0); Hemoglobin 7.8 g/dL (14.0-18.0); Mean Corpuscular Hemoglobin 31.1 pg (25.0-34.0); Mean Corpuscular Volume 103.2 fL (80.0-100.0); Platelet Count 202 K/uL (130-400); RDW Standard Deviation 76.6 fL (36.4-46.3); Red Blood Count 2.51 M/uL (4.70-6.10); White Blood Count 8.72 K/ul (4.8-10.8)
[2025-01-13 10:24] LABS: Albumin Level 2.8 gm/dl (3.4-5.0); Anion Gap 7.0 (3-11); Blood Urea Nitrogen 99.0 mg/dl (6-23); Calcium 8.4 mg/dl (8.6-10.3); Carbon Dioxide 32.0 mmol/L (21-32); Chloride 100.0 mmol/L (98-107); Creatinine Clr Calc Pharmacy 29.1 ml/min; Glucose 133.0 mg/dl (70-99(Fasting)); Potassium 4.4 mmol/L (3.5-5.1); Sodium 139.0 mmol/L (136-145)
[2025-01-13] MEDS: MIDODRINE HCL 2.5 MG TAB PO STA (12:05)
[2025-01-13] MEDS ORDERED: Heparin IV Adult Wt-Based Standard *NO* INITIAL Bolus Protocol IV SCH (17:38)
[2025-01-13] MEDS: HEPARIN 25000 UNIT/500 ML D5W 25,000 UNITS/500 ML BAG IV SCH (18:07)
--- NOTE | 2025-01-13 19:51 | Hospitalist Progress Note ---
Date of Service January 13, 2025 Assessment & Plan (1) Acute on chronic heart failure with preserved ejection fraction: (2) CHLOE (acute kidney injury): (3) Uremia: (4) Prosthetic joint infection: (5) Staphylococcus aureus bacteremia: (6) AISHA treated with BiPAP: (7) Abscess of sacrum: (8) Chronic anemia: Plan 69yo male with recent hospitalization for MSSA bacteremia (12/05 to 12/25) 2nd to infected right hip prosthesis. Presented from [facility] rehab due to leg swelling, hypoxia and shortness of breath. #CHLOE/acute renal failure - -baseline Cr is ~1.4 to 1.5 -on hospital d/c on 12/25/24 his Cr was 2 -upon presentation 01/06 his Cr was 2.65 -Cr remained >3 with very high BUN levels and uremic symptoms -despite supportive care, periodic IV diuretics, etc there was no improvement -temporary HD catheter placed 01/[address] Keyes -HD session #1 - 1 liter UF -HD session #2 today - 2.5 liter UF removed -HD session #3 planned for tomorrow -uncertain if HD will be needed just short-term vs long-term; hoping for renal recovery -etiology of CHLOE is uncertain -patient with cirrhotic appearing liver on imaging in November -urine Na level was 89 which makes hepatorenal syndrome unlikely (typically quite low with HRS) -urine Cr 18.5 -FeNa very high - suggestive of ATN -AIN possible from IV antibiotics but less likely (no rash, no eosinophilia, etc) -recent complement levels were low which 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 -complements rechecked today -recent u/a with blood/protein which may suggest GN -Dr Nicolas from [facility] [place] Nephrology did mention the possibility of getting a kidney bx at some point - he would need to be [place] [facility] [place] [facility] [place]appreciate ICU and nephrology assistance -BMP am #acute metabolic encephalopathy - -likely 2nd to very high BUN / uremia -improved today s/p HD yesterday & today -checked VBG - no hypercapnia -with known cirrhosis on imaging rechecked ammonia level - wnl -cont BIPAP while sleeping -avoid sedatives #acute on chronic heart failure with preserved ejection fraction with resulting acute hypoxic/hypercapnic respiratory failure - -had decompensated CHF during the prior admission as well -received IV diuresis early portion of this stay -diuresis was placed on hold with worsening CHLOE but now back to getting intermittent doses of bumex to challenge his kidneys and effect some diuresis -clinically still volume overloaded with effusions, edema of LEs, worsening arm edema, increased O2 requirements, etc. -in addition to diastolic CHF his hypoalbuminemia, severe CHLOE, +/- cirrhosis also contributing to volume overload -cont HD for volume control #right-sided pleural effusion - -s/p thoracentesis with 800ml removed -transudative fluid, however culture grew staph haemolyticus -Dr Keyes feels this is likely contaminant as the original cell counts and Lites' Criteria pointed towards transudative fluid rather than exudative -he is already on IV ancef which would cover this organism anyway #Left lower extremity ulcer on raza - -local wound care with Aquacel Ag + Optifoam dressing -a wound cx was taken from this region showing multiple pathogens, but still no suspicion of infection or cellulitis based on clinical exam of his ulcer -cont to monitor the wound #Sacral abscess - sebaceous cyst - -POD #5 s/p I & D and removal of the cyst by Dr Nesbitt -woundvac now in place #Staph aureus bacteremia - -dx last admission in November -source - infected right THR -due to medical complexity and other factors, no plans for I/D or explantation of right hip hardware -continue cefazolin renally dosed with last date 01/28 -then cefadroxil for chronic oral suppression -RUE PICC line in place #BPH with urinary retention - -prior admission wolfe catheter removed prior to discharge -patient reports it was placed back at [facility] -continue tamsulosin -cont wolfe #Nondisplaced right femoral periprosthetic intertrochanteric fracture - -Diagnosed last admission -no surgical Rx needed -WBAT #Chronic anemia - -cont to trend CBC daily -s/p IV venofer x 5 doses #Toe ulcers - -cont local wound care #Chronic atrial fibrillation/hypertension - -Xarelto on hold due to recent thoracentesis and need for HD catheter placement -cont metoprolol but titrate to 75mg BID -cont to hold diltiazem -since he may need permcath placement this week will hold off on starting back Xarelto and use heparin IV instead (standard dosing) #COPD - -no exacerbation at this time -Patsy PRN -Continue Trelegy #Type 2 Diabetes mellitus - -Stopped Jardiance due to CHLOE last admission -HbA1C 6.7% -continue NovoLog SSI -continue Lantus daily at 5 units #Hyperlipidemia - -Continue atorvastatin #Chronic gout - -allopurinol held at [facility], uric acid 7.1 -resumed at lower dose/renal dosing (50mg q48h) #AISHA - -cont home BIPAP 17/ HS and naps -blend O2 into the BIPAP as needed VTE Prophylaxis - heparin drip to be started today recent dysphagia - will ask speech therapy to re-examine him tomorrow care d/w nephrology PT,OT when able pt's daughter updated at bedside today Admission and Anticipated Discharge Date Admission Date: January 06, 2025 Subjective saw patient post-HD 2.5 L of UF removed tolerated HD w/o any issues he feels better overall breathing is more comfortable his mental fogginess and fatigue/lethargy are better daughter at bedside - she agrees he is more like himself asks for the easy to chew consistency on his diet to be removed very upset about this reports increasing pain in right hip region also has involuntary movement of his right leg but this is chronic for "long time" had multiple lumbar back surgeries in the past Review of Systems Review of Systems: gen - no fevers or chills cv - no chest pain pulm - no dyspnea at rest Physical Exam Physical Exam: gen - lying in bed, NAD, looks much better today; more awake, more alert neck - JVD still present mouth - MMM heart - irregularly irregular, s1 s2, 1-2/6 systolic murmur LLSB/axillary region; tachy lungs - decreased BS right base, scattered rales b/l, tachypnea resolved abd - soft NT BS+; abdominal wall edema improved ext - 2+ pitting edema from feet to thighs b/l - modest improvement; edema of arms b/l modestly improved psych - more awake, more alert today skin - ulcer left raza with mild exudate in center of ulcer but no surrounding cellulitis neuro - ankle clonus on right (3 beats or so); almost has a posturing/involuntary flexion of the right hip and right knee in a rhythmic pattern every 5-10 minutes; he reports it is chronic; nothing on left leg vascular - right IJ HD catheter in place Results & Data Results & Data Vital Signs (Past 12 Hours) Vital Signs Temp Pulse Pulse Pulse Resp BP BP 01/13/25 19:48 36.8 C 101 H 20 01/13/25 15:31 36.4 C L 85 18 01/13/25 15:15 110 H 18 01/13/25 14:25 36.6 C 79 119/77 01/13/25 14:00 86 111/75 01/13/25 13:30 92 H 110/76 01/13/25 13:00 87 103/75 01/13/25 12:30 88 115/77 01/13/25 12:00 86 112/69 01/13/25 11:30 84 101/66 01/13/25 11:21 86 108/72 01/13/25 11:18 36.5 C 74 01/13/25 11:12 36.6 C 65 18 108/70 01/13/25 08:00 BP Pulse Ox O2 Del Method O2 Flow Rate 01/13/25 19:48 115/74 98 High Flow Nasal Cannula 7 01/13/25 15:31 105/63 90 High Flow Nasal Cannula 01/13/25 15:15 93 Nasal Cannula 5 01/13/25 14:25 01/13/25 14:00 01/13/25 13:30 01/13/25 13:00 01/13/25 12:30 01/13/25 12:00 01/13/25 11:30 01/13/25 11:21 01/13/25 11:18 01/13/25 11:12 99 High Flow Nasal Cannula 01/13/25 08:00 High Flow Nasal Cannula 45 Laboratory Results Laboratory Results - last 24 hr 01/12/25 01/13/25 01/13/25 20:09 07:11 09:41 WBC 8.72 RBC 2.51 L Hgb 7.8 L Hct 25.9 L MCV 103.2 H MCH 31.1 MCHC 30.1 L RDW Std Deviation 76.6 H RDW Coeff of Marce 20.4 H Plt Count 202 MPV 10.8 Sodium 139 Potassium 4.4 Chloride 100 Carbon Dioxide 32 Anion Gap 7 BUN 99 H D Creatinine 3.31 H Est Cr Clr Drug Dosing 29.1 eGFR 19.13 BUN/Creatinine Ratio 29.9 H Glucose 133 H POC Glucose 147 H 106 H Calcium 8.4 L Phosphorus 5.0 H D Albumin 2.8 L Complement C3 Pending Complement C4 Pending Tot Complement (CH50) Pending 01/13/25 01/13/25 11:06 16:05 WBC RBC Hgb Hct MCV MCH MCHC RDW Std Deviation RDW Coeff of Amrce Plt Count MPV Sodium Potassium Chloride Carbon Dioxide Anion Gap BUN Creatinine Est Cr Clr Drug Dosing eGFR BUN/Creatinine Ratio Glucose POC Glucose 127 H 87 Calcium Phosphorus Albumin Complement C3 Complement C4 Tot Complement (CH50) Diagnostic Findings Microbiology 01/09/25 10:50 Pleural Fluid Acid Fast Bacilli Smear - Final 01/09/25 10:50 Pleural Fluid Acid Fast Bacilli Culture - Preliminary No Acid-Fast Bacilli Isolated - Report 1, Additional Report to Follow. 01/09/25 10:50 Pleural Fluid Gram Stain - Final 01/09/25 10:50 Pleural Fluid Aerobic and Anaerobic Culture - Preliminary Staphylococcus haemolyticus 01/06/25 11:20 Blood Aerobic Blood Culture - Final No growth in Aerobic bottle after 5 days. 01/06/25 11:20 Blood Anaerobic Blood Culture - Final No growth in Anaerobic bottle after 5 days. 01/06/25 11:28 Blood Aerobic Blood Culture - Final No growth in Aerobic bottle after 5 days. 01/06/25 11:28 Blood Anaerobic Blood Culture - Final No growth in Anaerobic bottle after 5 days. 01/06/25 14:50 Leg,Left Gram Stain - Final 01/06/25 14:50 Leg,Left Aerobic and Anaerobic Culture - Final Enterobacter cloacae complex Pseudomonas aeruginosa Goldie tropicalis 01/06/25 11:32 Urine,Clean Catch Urine Culture - Final No growth - less than 1,000 colonies/mL. PG Care Time/CCT Total # of Minutes Spent Total Time Spent with Patient: Total time spent is greater than 50% in coordination of care (as documented) at patient's floor/unit and/or counseling patient: Coding Level of Care Code 24590 SUB INP/OBS CARE 3/50MIN Diagnoses Acute on chronic heart failure with preserved ejection fraction I50.33 CHLOE (acute kidney injury) N17.9 Uremia N19 Prosthetic joint infection T84.50XA Staphylococcus aureus bacteremia R78.81; B95.61 AISHA treated with BiPAP G47.33 Abscess of sacrum M46.28 Chronic anemia D64.9
[2025-01-13] MEDS: METOPROLOL TARTRATE 25 MG TAB PO SCH (20:49)
[2025-01-14 01:25] LABS: ANTI-Xa, UFH(UnfractionatedHep 0.25 IU/ml (0.3-0.7)
[2025-01-14] MEDS: MIDODRINE HCL 2.5 MG TAB PO STA (08:24)
[2025-01-14 09:09] LABS: Hematocrit (blood only) 25.8 % (42.0-52.0); Hemoglobin 8.0 g/dL (14.0-18.0); Mean Corpuscular Hemoglobin 31.7 pg (25.0-34.0); Mean Corpuscular Volume 102.4 fL (80.0-100.0); Platelet Count 200 K/uL (130-400); RDW Standard Deviation 75.1 fL (36.4-46.3); Red Blood Count 2.52 M/uL (4.70-6.10); White Blood Count 8.55 K/ul (4.8-10.8)
[2025-01-14 09:36] LABS: Anion Gap 7.0 (3-11); Blood Urea Nitrogen 61.0 mg/dl (6-23); Calcium 8.4 mg/dl (8.6-10.3); Carbon Dioxide 30.0 mmol/L (21-32); Chloride 101.0 mmol/L (98-107); Creatinine Clr Calc Pharmacy 32.7 ml/min; Glucose 122.0 mg/dl (70-99(Fasting)); Potassium 4.2 mmol/L (3.5-5.1); Sodium 138.0 mmol/L (136-145)
[2025-01-14 09:49] LABS: ANTI-Xa, UFH(UnfractionatedHep 0.31 IU/ml (0.3-0.7)
--- NOTE | 2025-01-14 10:34 | Nephrology Progress Note ---
Date of Service January 14, 2025 Assessment & Plan (1) CHLOE (acute kidney injury): Plan: Non-oliguric. Madhu started HD 01/12/25 for advanced kidney dysfunction with uremia and volume overload. Dr. Keyes placed a temporary hemodialysis catheter without complications immediately prior to treatment. Orders for third treatment were entered into the EHR and reviewed with the renal dialysis technician. Madhu is tolerating dialysis reasonably well. BP low but he appears asymptomatic in his regard. Heart rate acceptable. Midodrine has been provided prior to treatment to assist with UF. The etiology of CHLOE is not clear. Urine microscopy -- WBCs, RBCs, +hyaline and granular casts. There is a component of ATN but I cannot exclude underlying GN or interstitial nephritis. Ultimately, kidney biopsy would be required for definitive diagnosis. Post infectious or C3 glomerulopathy remain in the differential and repeat complement levels have been sent. Biopsy option deferred pending stability in his condition. Cefazolin dosed daily (post dialysis on HD days). Medications are appropriately dosed for kidney function. Document strict I/O's. I am not planning dialysis tomorrow. I would like to monitor kidney function off treatment for 24 hours and anticipate that he will likely require another treatment on Tuesday. (2) Acute respiratory failure with hypoxia: Plan: Volume overloaded with improving pulmonary edema. (3) Staphylococcus aureus bacteremia: Plan: Remains on Cefazolin dosing for IHD. (4) Chronic anemia: Plan: H/H stable. Epogen 74121 units x 1 dose on 01/09/25. Venofer 200 mg IV daily x 5 doses completed yesterday. (5) Chronic atrial fibrillation: Plan: Xarelto held pending potential TDC placement later this week. AC with heparin in the interim. If no significant improvement in kidney function, it may be reasonably to target permcath placement for Tuesday. Admission and Anticipated Discharge Date Admission Date: January 06, 2025 Subjective No acute events overnight. Madhu tolerated HD reasonably well yesterday with so me intradialytic hypotension and elevated heart rates. He tolerated UF ~2.5 L. Supplemental oxygen requirement improved with UF. He was seen and evaluated during HD today. He feels well. BP supported with midodrine pretreatment. Running on Critline. He denies any chest pains or palpitations. No fevers or chills. Pain in his back/sacrum remains his primary issue but this is reasonably managed. Review of Systems Review of Systems: All systems reviewed & are unremarkable except as noted in HPI & below Physical Exam Constitutional: + frail appearing; no acute distress Eyes: + anicteric sclerae ENMT: external ear and nose normal, oropharynx normal Neck: normal visual inspection and trachea midline RIJ HD catheter Respiratory: normal respiratory effort Auscultation: lungs clear to auscultation bilaterally and + diminished lung sounds Cardiovascular: Rate/Rhythm: regular rate Heart Sounds: normal S1 and normal S2 Extremities: + edema (L>R pitting/dependent -- improving) Musculoskeletal: Extremities: no cyanosis and no clubbing Skin: normal turgor; no jaundice Neurologic: Motor/Sensory: no tremor and no asterixis Psychiatric: Orientation: alert and oriented x 3 Results & Data Vital Signs (Past 12 Hours) Vital Signs Temp Pulse Pulse Pulse Resp BP BP 01/14/25 10:00 87 99/64 L 01/14/25 09:30 82 95/67 L 01/14/25 09:27 82 99/64 L 01/14/25 09:20 36.4 C L 84 01/14/25 08:08 01/14/25 07:06 36.6 C 73 18 106/66 01/14/25 07:02 104 H 16 01/14/25 03:20 36.8 C 85 18 01/14/25 03:10 91 H 18 01/13/25 23:41 36.7 C 111 H 20 01/13/25 22:37 99 H 19 BP Pulse Ox O2 Del Method O2 Flow Rate FiO2 01/14/25 10:00 01/14/25 09:30 01/14/25 09:27 01/14/25 09:20 01/14/25 08:08 High Flow Nasal Cannula 6 01/14/25 07:06 100 Oxymask, High Flow Nasal Cannula 6 01/14/25 07:02 95 Nasal Cannula 7 01/14/25 03:20 120/80 99 Room Air 01/14/25 03:10 98 40 01/13/25 23:41 115/85 99 BiPAP 01/13/25 22:37 98 40 Laboratory Results Laboratory Results - last 24 hr 01/13/25 01/13/25 01/13/25 11:06 16:05 20:18 WBC RBC Hgb Hct MCV MCH MCHC RDW Std Deviation RDW Coeff of Marce Plt Count MPV Absolute Nucleated RBC Nucleated RBC % (auto) Heparin Anti-Xa, Unfract Sodium Potassium Chloride Carbon Dioxide Anion Gap BUN Creatinine Est Cr Clr Drug Dosing eGFR BUN/Creatinine Ratio Glucose POC Glucose 127 H 87 116 H Calcium 01/14/25 01/14/25 01/14/25 00:26 07:09 08:37 WBC 8.55 RBC 2.52 L Hgb 8.0 L Hct 25.8 L MCV 102.4 H MCH 31.7 MCHC 31.0 L RDW Std Deviation 75.1 H RDW Coeff of Marce 20.2 H Plt Count 200 MPV 11.5 Absolute Nucleated RBC 0.02 Nucleated RBC % (auto) 0.2 Heparin Anti-Xa, Unfract 0.25 L 0.31 Sodium 138 Potassium 4.2 Chloride 101 Carbon Dioxide 30 Anion Gap 7 BUN 61 H D Creatinine 2.92 H D Est Cr Clr Drug Dosing 32.7 eGFR 22.24 BUN/Creatinine Ratio 20.9 H Glucose 122 H POC Glucose 106 H Calcium 8.4 L PG Care Time/CCT Total # of Minutes Spent Total Time Spent with Patient: Total time spent is greater than 50% in coordination of care (as documented) at patient's floor/unit and/or counseling patient: Coding Level of Care Code 61236 SUB INP/OBS CARE 350MIN Diagnoses CHLOE (acute kidney injury) N17.9 Acute respiratory failure with hypoxia J96.01 Staphylococcus aureus bacteremia R78.81; B95.61 Chronic anemia D64.9 Chronic atrial fibrillation I48.20
--- NOTE | 2025-01-14 12:44 | Hospitalist Progress Note ---
Date of Service January 14, 2025 Assessment & Plan (1) Acute on chronic heart failure with preserved ejection fraction: (2) CHLOE (acute kidney injury): (3) Uremia: (4) Prosthetic joint infection: (5) Staphylococcus aureus bacteremia: (6) AISHA treated with BiPAP: (7) Abscess of sacrum: (8) Chronic anemia: Plan 69yo male with recent hospitalization for MSSA bacteremia (12/05 to 12/25) 2nd to infected right hip prosthesis. Presented from [facility] rehab due to leg swelling, hypoxia and shortness of breath. #CHLEO/acute renal failure - -baseline Cr is ~1.4 to 1.5 -on hospital d/c on 12/25/24 his Cr was 2 -upon presentation 01/06 his Cr was 2.65 -Cr remained >3 with very high BUN levels and uremic symptoms -despite supportive care, periodic IV diuretics, etc there was no improvement in UOP or his BUN/Cr -temporary HD catheter placed 01/[address] Keyes -HD session #1 - 1 liter UF removed -HD session #2 - 2.5 liters UF removed -HD session #3 - another 2.5 liters of UF removed today -no HD planned for 01/15 -tolerating HD thus far -uncertain if HD will be needed just short-term vs long-term; hoping for renal recovery -etiology of CHLOE is uncertain -patient with cirrhotic appearing liver on imaging in November -urine Na level was 89 which makes hepatorenal syndrome unlikely (typically quite low with HRS) -urine Cr 18.5 -FeNa very high - suggestive of ATN -AIN possible from IV antibiotics but less likely (no rash, no eosinophilia, etc) -recent complement levels were low which 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 -complements rechecked today -recent u/a with blood/protein which may suggest GN -[place] Nicolas [place] [facility] [place] did mention the possibility of getting a kidney bx at some point - he would need to be transferred to [facility] [place] [facility] [place] -appreciate nephrology assistance -BMP am #acute metabolic encephalopathy - IMPROVED s/p serial HD sessions - -2nd to very high BUN / uremia -checked VBG - no hypercapnia -with known cirrhosis on imaging rechecked ammonia level - wnl -cont BIPAP while sleeping -avoid sedatives #acute on chronic heart failure with preserved ejection fraction with resulting acute hypoxic/hypercapnic respiratory failure - -had decompensated CHF during the prior admission as well -received IV diuresis early portion of this stay -diuresis was placed on hold with worsening CHLOE but now back to getting intermittent doses of bumex to challenge his kidneys and effect some diuresis -clinically still volume overloaded with effusions, edema of LEs, worsening arm edema, increased O2 requirements, etc. -in addition to diastolic CHF his hypoalbuminemia, severe CHLOE, + cirrhosis also likely contributing to volume overload -cont HD for volume control #right-sided pleural effusion - -s/p thoracentesis with 800ml removed -transudative fluid, however culture grew staph haemolyticus -Dr Keyes feels this is likely contaminant as the original cell counts and Lites' Criteria pointed towards transudative fluid rather than exudative -he is already on IV ancef which would cover this organism anyway #Left lower extremity ulcer on raza - -local wound care with Aquacel Ag + Optifoam dressing -a wound cx was taken from this region showing multiple pathogens, but still no suspicion of infection or cellulitis based on clinical exam of this ulcer -cont to monitor the wound -appreciate wound care assistance #Sacral abscess - sebaceous cyst - -POD #6 s/p I & D and removal of the cyst by Dr Nesbitt -woundvac now in place; exchanged today by wound care #Staph aureus bacteremia - -dx last admission in November -source - infected right THR -due to medical complexity and other factors, no plans for I/D or explanta tion of right hip hardware -continue cefazolin renally dosed with last date 01/28/25 -then cefadroxil for chronic oral suppression -RUE PICC line in place #BPH with urinary retention - -prior admission wolfe catheter removed prior to discharge -patient reports it was placed back at [facility] -continue tamsulosin -cont wolfe #Nondisplaced right femoral periprosthetic intertrochanteric fracture - -Diagnosed last admission -no surgical Rx needed -WBAT when working with PT/OT #Chronic anemia - -cont to trend CBC daily -s/p IV venofer x 5 doses #Toe ulcers - -cont local wound care #Chronic atrial fibrillation/hypertension - -Xarelto on hold due to recent thoracentesis and need for HD catheter placement -cont metoprolol 75mg BID -since starting HD rates have been worse, likely due to fluid shifts etc. -probably will need to resume diltiazem -since he may need permcath placement this week will hold off on starting back Xarelto and use heparin IV instead (standard dosing) #COPD - -no exacerbation at this time -Duonebs PRN -Continue Trelegy #Type 2 Diabetes mellitus - -Stopped Jardiance due to CHLOE last admission -HbA1C 6.7% -continue NovoLog SSI -continue Lantus daily at 5 units #Hyperlipidemia - -Continue atorvastatin #Chronic gout - -allopurinol held at [facility], uric acid 7.1 -resumed at lower dose/renal dosing (50mg q48h) #AISHA - -cont home BIPAP / HS and naps -blend O2 into the BIPAP as needed VTE Prophylaxis - heparin drip recent dysphagia - will ask speech therapy to re-examine him today; cleared to remove the "easy to chew" consistency care d/w nephrology cont PT,OT pt's daughter updated at bedside yesterday Admission and Anticipated Discharge Date Admission Date: January 06, 2025 Subjective tele - a.fib, rates low 100s at rest; with activity he has significantly increased rates - 140s/150s or higher saw patient while he was on HD he tolerated HD - 2.5 L of UF removed states breathing is comfortable denies any significant pain today reports ongoing fatigue Review of Systems Review of Systems: gen - no fevers or chills cv - no chest pain, no orthopnea pulm - no dyspnea at rest GI - no nausea/emesis; had BM this am Physical Exam Physical Exam: gen - lying in bed, hooked up to HD; NAD, awake/alert neck - JVD+ mouth - MMM heart - irregularly irregular, s1 s2, 1/6 systolic murmur LLSB/axillary region; tachy lungs - decreased BS right base, more clear b/l, no tachypnea or increased work of breathing abd - soft NT BS+, distension improved ext - 2+ pitting edema from feet to knees b/l -- improved; edema of arms b/l improved psych - awake, alert, oriented skin - ulcer left raza -- no eloisa-wound cellulitis vascular - right IJ HD catheter in place Results & Data Results & Data Vital Signs (Past 12 Hours) Vital Signs Temp Pulse Pulse Pulse Resp BP BP 11/24/25 11:00 93 H 92/81 L 01/14/25 10:30 90 94/71 L 01/14/25 10:00 87 99/64 L 01/14/25 09:30 82 95/67 L 01/14/25 09:27 82 99/64 L 01/14/25 09:20 36.4 C L 84 01/14/25 08:08 01/14/25 08:00 114 H 01/14/25 07:06 36.6 C 73 18 106/66 01/14/25 07:02 104 H 16 01/14/25 03:20 36.8 C 85 18 01/14/25 03:10 91 H 18 BP Pulse Ox O2 Del Method O2 Flow Rate FiO2 01/14/25 11:00 01/14/25 10:30 01/14/25 10:00 01/14/25 09:30 01/14/25 09:27 01/14/25 09:20 01/14/25 08:08 High Flow Nasal Cannula 6 01/14/25 08:00 01/14/25 07:06 100 Oxymask, High Flow Nasal Cannula 6 01/14/25 07:02 95 Nasal Cannula 7 01/14/25 03:20 120/80 99 Room Air 01/14/25 03:10 98 40 Laboratory Results Laboratory Results - last 48 hr 01/13/25 01/13/25 01/13/25 09:41 11:06 16:05 WBC 8.72 RBC 2.51 L Hgb 7.8 L Hct 25.9 L MCV 103.2 H MCH 31.1 MCHC 30.1 L RDW Std Deviation 76.6 H RDW Coeff of Marce 20.4 H Plt Count 202 MPV 10.8 Absolute Nucleated RBC Nucleated RBC % (auto) Heparin Anti-Xa, Unfract Sodium 139 Potassium 4.4 Chloride 100 Carbon Dioxide 32 Anion Gap 7 BUN 99 H D Creatinine 3.31 H Est Cr Clr Drug Dosing 29.1 eGFR 19.13 BUN/Creatinine Ratio 29.9 H Glucose 133 H POC Glucose 127 H 87 Calcium 8.4 L Phosphorus 5.0 H D Albumin 2.8 L 01/13/25 01/14/25 01/14/25 20:18 00:26 07:09 WBC RBC Hgb Hct MCV MCH MCHC RDW Std Deviation RDW Coeff of Marce Plt Count MPV Absolute Nucleated RBC Nucleated RBC % (auto) Heparin Anti-Xa, Unfract 0.25 L Sodium Potassium Chloride Carbon Dioxide Anion Gap BUN Creatinine Est Cr Clr Drug Dosing eGFR BUN/Creatinine Ratio Glucose POC Glucose 116 H 106 H Calcium Phosphorus Albumin 01/14/25 01/14/25 01/14/25 08:37 12:56 16:07 WBC 8.55 RBC 2.52 L Hgb 8.0 L Hct 25.8 L MCV 102.4 H MCH 31.7 MCHC 31.0 L RDW Std Deviation 75.1 H RDW Coeff of Marce 20.2 H Plt Count 200 MPV 11.5 Absolute Nucleated RBC 0.02 Nucleated RBC % (auto) 0.2 Heparin Anti-Xa, Unfract 0.31 Sodium 138 Potassium 4.2 Chloride 101 Carbon Dioxide 30 Anion Gap 7 BUN 61 H D Creatinine 2.92 H D Est Cr Clr Drug Dosing 32.7 eGFR 22.24 BUN/Creatinine Ratio 20.9 H Glucose 122 H POC Glucose 145 H 150 H Calcium 8.4 L Diagnostic Findings Microbiology 01/09/25 10:50 Pleural Fluid Gram Stain - Final 01/09/25 10:50 Pleural Fluid Aerobic and Anaerobic Culture - Final Staphylococcus haemolyticus 01/09/25 10:50 Pleural Fluid Acid Fast Bacilli Smear - Final 01/09/25 10:50 Pleural Fluid Acid Fast Bacilli Culture - Preliminary No Acid-Fast Bacilli Isolated - Report 1, Additional Report to Follow. 01/06/25 11:20 Blood Aerobic Blood Culture - Final No growth in Aerobic bottle after 5 days. 01/06/25 11:20 Blood Anaerobic Blood Culture - Final No growth in Anaerobic bottle after 5 days. 01/06/25 11:28 Blood Aerobic Blood Culture - Final No growth in Aerobic bottle after 5 days. 01/06/25 11:28 Blood Anaerobic Blood Culture - Final No growth in Anaerobic bottle after 5 days. 01/06/25 14:50 Leg,Left Gram Stain - Final 01/06/25 14:50 Leg,Left Aerobic and Anaerobic Culture - Final Enterobacter cloacae complex Pseudomonas aeruginosa Goldie tropicalis 01/06/25 11:32 Urine,Clean Catch Urine Culture - Final No growth - less than 1,000 colonies/mL. PG Care Time/CCT Total # of Minutes Spent Total Time Spent with Patient: Total time spent is greater than 50% in coordination of care (as documented) at patient's floor/unit and/or counseling patient: Coding Level of Care Code 93128 SUB INP/OBS CARE 50MIN Diagnoses Acute on chronic heart failure with preserved ejection fraction I50.33 CHLOE (acute kidney injury) N17.9 Uremia N19 Prosthetic joint infection T84.50XA Staphylococcus aureus bacteremia R78.81; B95.61 AISHA treated with BiPAP G47.33 Abscess of sacrum M46.28 Chronic anemia D64.9
[2025-01-15 06:34] LABS: ANTI-Xa, UFH(UnfractionatedHep 0.26 IU/ml (0.3-0.7)
[2025-01-15 07:23] LABS: Anion Gap 5.0 (3-11); Blood Urea Nitrogen 42.0 mg/dl (6-23); Calcium 8.3 mg/dl (8.6-10.3); Carbon Dioxide 30.0 mmol/L (21-32); Chloride 102.0 mmol/L (98-107); Creatinine Clr Calc Pharmacy 35.3 ml/min; Glucose 95.0 mg/dl (70-99(Fasting)); Potassium 4.6 mmol/L (3.5-5.1); Sodium 137.0 mmol/L (136-145)
--- NOTE | 2025-01-15 12:37 | Nephrology Progress Note ---
Date of Service January 15, 2025 Assessment & Plan (1) CHLOE (acute kidney injury): Plan: Non-oliguric. Madhu started HD 01/12/25 for advanced kidney dysfunction with uremia and volume overload. Dr. Keyes placed a temporary hemodialysis catheter without complications immediately prior to treatment. The third HD treatment was completed yesterday. Volume status is reasonably controlled. Electrolytes normal. HD will be held today. I discussed the logistics of placement of a permcath with vascular surgery, the patient, and the patient's . Unless there is rapid improvement in kidney function which is unlikely, TDC placement would be advised. I have consulted with Dr. Gonzalez regarding the timing/availability. Madhu remains on a heparin gtt in the interim. Midodrine has been provided prior to HD treatments to assist with UF. The etiology of CHLOE is not clear. Urine microscopy -- WBCs, RBCs, +hyaline and granular casts. There is a component of ATN but I cannot exclude underlying GN or interstitial nephritis. Ultimately, kidney biopsy would be required for definitive diagnosis. Post infectious or C3 glomerulopathy remain in the differential and repeat complement levels have been sent. Biopsy option deferred pending stability in his condition. Cefazolin dosed for IHD. Medications are appropriately dosed for kidney function. Document strict I/O's. I will plan for Madhu's next HD treatment tomorrow. (2) Acute respiratory failure with hypoxia: Plan: Improving volume overload. (3) Staphylococcus aureus bacteremia: Plan: Remains on Cefazolin dosing for IHD. (4) Chronic anemia: Plan: H/H stable. Epogen 17663 units x 1 dose on 01/09/25. Next dose with HD tomorrow. Venofer 200 mg IV daily x 5 doses completed 01/13. (5) Chronic atrial fibrillation: Plan: Xarelto held pending potential TDC placement later this week. AC with heparin in the interim. Vascular surgery consultation requested to help plan appropriate timing for permcath placement. I have been in contact with Dr. Gonzalez. Admission and Anticipated Discharge Date Admission Date: January 06, 2025 Subjective Madhu was seen and evaluated in his hospital room this morning. He tolerated HD reasonably well yesterday. No complications with treatment. BP supported through dialysis with midodrine. Madhu was very tired this AM during my assessment. He had difficulty staying awake but when awake he answered questions appropriately and was oriented. He states that he is breathing comfortably. No fevers or chills. Remains non-oliguric. I updated his (Layla) by phone. Review of Systems Review of Systems: All systems reviewed & are unremarkable except as noted in HPI & below Physical Exam Constitutional: + frail appearing; no acute distress Eyes: + anicteric sclerae ENMT: external ear and nose normal, oropharynx normal Mouth: + dry oral mucous membranes Neck: normal visual inspection and trachea midline Respiratory: normal respiratory effort Auscultation: lungs clear to auscultation bilaterally and + diminished lung sounds Cardiovascular: Rate/Rhythm: regular rate Heart Sounds: normal S1 and normal S2 Extremities: + edema (L>R pitting/dependent) Musculoskeletal: Extremities: no cyanosis and no clubbing Skin: normal turgor; no jaundice Neurologic: Motor/Sensory: no tremor and no asterixis Psychiatric: Orientation: alert and oriented x 3 Results & Data Vital Signs (Past 12 Hours) Vital Signs Temp Pulse Pulse Pulse Resp BP BP 01/15/25 11:28 36.6 C 104 H 20 99/63 L 01/15/25 11:26 01/15/25 11:22 90 18 01/15/25 07:45 36.6 C 119 H 20 123/79 01/15/25 07:08 86 01/15/25 07:03 92 H 20 01/15/25 02:40 36.7 C 115 H 20 111/75 Pulse Ox O2 Del Method O2 Flow Rate 01/15/25 11:28 97 Room Air 6 01/15/25 11:26 Nasal Cannula 4 01/15/25 11:22 95 Nasal Cannula 4 01/15/25 07:45 97 High Flow Nasal Cannula 6 01/15/25 07:08 01/15/25 07:03 100 CPAP 6 01/15/25 02:40 99 CPAP Laboratory Results Laboratory Results - last 24 hr 01/14/25 01/14/25 01/14/25 12:56 16:07 20:18 Heparin Anti-Xa, Unfract Sodium Potassium Chloride Carbon Dioxide Anion Gap BUN Creatinine Est Cr Clr Drug Dosing eGFR BUN/Creatinine Ratio Glucose POC Glucose 145 H 150 H 144 H Calcium 01/15/25 01/15/25 01/15/25 05:49 07:30 11:29 Heparin Anti-Xa, Unfract 0.26 L Sodium 137 Potassium 4.6 Chloride 102 Carbon Dioxide 30 Anion Gap 5 BUN 42 H Creatinine 2.70 H Est Cr Clr Drug Dosing 35.3 eGFR 24.43 BUN/Creatinine Ratio 15.6 Glucose 95 POC Glucose 101 H 160 H Calcium 8.3 L PG Care Time/CCT Total # of Minutes Spent Total Time Spent with Patient: Total time spent is greater than 50% in coordination of care (as documented) at patient's floor/unit and/or counseling patient: Coding Level of Care Code 88648 SUB INP/OBS CARE 3/50MIN Diagnoses CHLOE (acute kidney injury) N17.9 Acute respiratory failure with hypoxia J96.01 Staphylococcus aureus bacteremia R78.81; B95.61 Chronic anemia D64.9 Chronic atrial fibrillation I48.20
--- NOTE | 2025-01-15 12:50 | Vascular Surgery Consultation ---
Date of Consultation January 15, 2025 Assessment & Plan (1) CHLOE (acute kidney injury): Earlier today was on "6L high flow" oxygen but in conversation with bedside nurse this was standard nasal cannula. Now on 4L with pOx95% and no distress. Will plan catheter exchange to tunneled central line tomorrow morning assuming OR availability. Please hold heparin at 0600 01/16/25 Please make NPO after midnight tonight Has history of sebaceous cyst/sacral wound as well as chronically infected right hip prosthesis but neither is an absolute contraindication to placement of tunneled line. History of Present Illness Attending Physician: Indio Mae MD History of Present Illness Asked to evaluate this 69 yo male with acute kidney failure, currently on hemodialysis through temporary right IJ central line. Dr. Nicolas (Nephrology) believes patient will need longer term dialysis. Tunneled central venous line requested. Allergies Allergy/AdvReac Type Severity Reaction Status Date / Time dicyclomine [From Bentyl] Allergy Unknown CAN'T Verified 01/06/25 14:54 REMEMBER Home Medications Medication Instructions Recorded Confirmed Type albuterol sulfate 90 mcg/actuation 2 inh inhalation Q4H PRN shortness 03/18/23 01/06/25 Rx breath activated powder inhaler of breath or wheezing #1 ea oxygen #2 ea 04/28/23 10/26/24 Rx diltiazem HCl 180 mg 180 mg PO DAILY #90 caps 03/12/24 01/06/25 Rx capsule,extended release 24 hr fluticasone fur. 100 mcg-umeclid 1 inh inhalation DAILY #60 ea 03/12/24 01/06/25 Rx 62.5 mcg-vilant 25 mcg inhalat.powder (Trelegy Ellipta) atorvastatin 10 mg tablet 10 mg PO QPM #90 tabs 04/11/24 01/06/25 Rx furosemide 80 mg tablet 80 mg PO DAILY #180 tabs 04/11/24 01/06/25 Rx metoprolol tartrate 100 mg tablet 100 mg PO BID #180 tabs 04/11/24 01/06/25 Rx blood sugar diagnostic (OneTouch #100 ea 06/07/24 10/26/24 Rx Ultra Test strips) lancets #100 ea 06/07/24 10/26/24 Rx acetaminophen 500 mg tablet 500 mg PO Q4H PRN TEMP >100.5 12/05/24 01/06/25 History (Tylenol Extra Strength) cefazolin 2 gram intravenous 2 g IV Q8H 12/25/24 01/06/25 Rx solution diclofenac sodium 1 % topical gel 4 g EXT QID PRN Right knee pain 12/25/24 01/06/25 Rx (Voltaren Arthritis Pain) #100 grams tamsulosin 0.4 mg capsule 0.4 mg PO HS #30 caps 12/25/24 01/06/25 Rx acetaminophen 500 mg tablet 1,000 mg PO Q8H PRN Pain 01/06/25 01/06/25 History (Tylenol Extra Strength) furosemide 10 mg/mL injection 20 mg IV Q12H 01/06/25 01/06/25 History solution insulin aspart U-100 100 unit/mL 1 sliding scale dose subcut 01/06/25 01/06/25 History subcutaneous solution (Novolog USEASDIRECTD U-100 Insulin aspart) insulin glargine 100 unit/mL 5 unit subcut Q12H 01/06/25 01/06/25 History subcutaneous solution (Lantus U-100 Insulin) ondansetron 4 mg disintegrating 4 mg PO Q6H PRN NAUSEA/VOMITING 01/06/25 01/06/25 History tablet rivaroxaban 15 mg tablet (Xarelto) 15 mg PO DAILY 01/06/25 01/06/25 History sodium chloride 0.9 % (flush) 10 ml IV Q12H 01/06/25 01/06/25 History sodium chloride 1,000 mg soluble 1,000 mg PO DAILY 01/06/25 01/06/25 History tablet Patient History Medical History (Updated 01/09/25 @ 10:04 by Elsie Potter MD) History of cor pulmonale Other secondary pulmonary hypertension Echo/RHC 04/2023 Type II/III [facility]. Per visit 04/2023, "Predominantly he has pulmonary hypertension is postcapillary due to diastolic heart failure. Treatment of this syndrome is maintaining an adequate volume status." Lumbar spinal stenosis DJD (degenerative joint disease) Hx of diabetic foot ulcer Hx of left foot ulcer "resolved" per patient- no active infection/ulcer Monitored/following with [facility] for ankle and foot care Venous insufficiency Osteoarthritis Diabetes Hyperlipidemia HTN (hypertension) Hx of gout History of COVID-19 (01/2023) Hospitalized x 3 days at [facility] AISHA (obstructive sleep apnea) BIPAP (compliant) Surgical History (Updated 01/08/25 @ 13:32 by Renea Duran RN) History of incision and drainage (01/08/25) Incision and Drainage Sacral Decubitus Ulcer - J Carlos Nesbitt, DO Hx of total knee replacement 10/11/23 History of lumbar fusion (2008) Hx of cardiac catheterization (04/26/23) RHC- Significantly elevated pulmonary capillary wedge pressure. Significantly elevated pulmonary arterial pressure and pulmonary vascular resistance. Significantly elevated right ventricular end-diastolic pressure and right atrial pressure. Recommend continue diuresis for volume overload. Additional recommendations regarding elevated pulmonary vascular resistance per pulmonary medicine team. H/O total hip arthroplasty Right History of vasectomy Family History Mother Coronary heart disease Hypertension Diabetes Denies family history of Ovarian cancer Prostate cancer Myocardial infarction Breast cancer Colorectal cancer Social History Smoking Status: Former smoker Tobacco Type: Cigarettes Age Started Using Tobacco: 10; Age Quit Using Tobacco: 48; packs per day: 2.5; Second Hand Exposure: Yes; Do You Dip or Chew Tobacco: No; Hx Alcohol Use: No Hx Substance Use: No Preferred Language: Dominican Communication Ability: Effective Visual Impairment: No Limitations Parimutuel Ticket Seller Required: No Beliefs That Will Affect Care: None marital status: Current Living Situation: Spouse Current Living Situation Comment: and brother in law. current occupational status: disabled Feels Safe at Home: Yes Childhood Exposure to Second-Hand Smoke: Yes Diet: DASH caffeine: Yes Seatbelt Use: always Sunscreen Use: No Assistive Devices: BiPap, Cane, Walker and Other Physical Exam Physical Exam: Right IJ line in place. No tenderness, no drainage. Has RUE PICC line in place. No swelling. Results & Data Vital Signs (Past 12 Hours) Vital Signs Temp Pulse Pulse Pulse Resp BP BP 01/15/25 11:28 36.6 C 104 H 20 99/63 L 01/15/25 11:26 01/15/25 11:22 90 18 01/15/25 07:45 36.6 C 119 H 20 123/79 01/15/25 07:08 86 11/25/25 07:03 92 H 20 01/15/25 02:40 36.7 C 115 H 20 111/75 Pulse Ox O2 Del Method O2 Flow Rate 01/15/25 11:28 97 Room Air 6 01/15/25 11:26 Nasal Cannula 4 01/15/25 11:22 95 Nasal Cannula 4 01/15/25 07:45 97 High Flow Nasal Cannula 6 01/15/25 07:08 01/15/25 07:03 100 CPAP 6 01/15/25 02:40 99 CPAP PG Care Time/CCT Total # of Minutes Spent Total Time Spent with Patient: Total time spent is greater than 50% in coordination of care (as documented) at patient's floor/unit and/or counseling patient: Coding Level of Care Code 51508 IN/OBS CONSULT LVL 3,45M Diagnoses CHLOE (acute kidney injury) N17.9
[2025-01-15 13:42] LABS: ANTI-Xa, UFH(UnfractionatedHep 0.37 IU/ml (0.3-0.7)
--- NOTE | 2025-01-15 16:13 | Hospitalist Progress Note ---
Date of Service January 15, 2025 Assessment & Plan (1) Acute on chronic heart failure with preserved ejection fraction: (2) CHLOE (acute kidney injury): (3) Uremia: (4) Prosthetic joint infection: (5) Staphylococcus aureus bacteremia: (6) AISHA treated with BiPAP: (7) Abscess of sacrum: (8) Chronic anemia: Plan 69yo male with recent hospitalization for MSSA bacteremia (12/05 to 12/25) 2nd to infected right hip prosthesis. Presented from [facility] rehab due to leg swelling, hypoxia and shortness of breath. #CHLOE/acute renal failure - ongoing, with no renal recovery to date - -baseline Cr ~1.4 to 1.5 -hospital d/c on 12/25/24 -- Cr was 2 -upon presentation 01/06/25 his Cr was 2.65 -Cr remained >3 with very high BUN levels and uremic symptoms throughout this stay -despite supportive care there was no improvement in UOP or his BUN/Cr -temporary HD catheter placed 01/12/[address] Keyes -HD session #1 - 1 liter UF removed -HD session #2 - 2.5 liters UF removed -HD session #3 - 2.5 liters of UF removed 01/14 -no HD planned for today -nephrology recommends [facility] surgery consultation for permcath placement -this will happen tomorrow AM, followed by another HD session thereafter -uncertain if HD will be needed just short-term vs long-term; hoping for renal recovery, but right now no signs to date of such -etiology of CHLOE is uncertain -patient with cirrhotic appearing liver on imaging in November -urine Na level was 89 which makes hepatorenal syndrome unlikely (typically quite low with HRS) -urine Cr 18.5 -FeNa very high - suggestive of ATN -AIN possible from IV antibiotics but less likely (no rash, no eosinophilia, etc) -recent complement levels were low which 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 -complements rechecked and are pending -recent u/a with blood/protein which may suggest GN [place] [facility] did mention the possibility of getting a kidney bx at some point - he would need to be transferred to [facility] or [facility] for such -appreciate nephrology assistance -[facility] am -permcath placement in AM by Dr Gonzalez #acute metabolic encephalopathy - IMPROVED s/p serial HD sessions - -2nd to uremia -checked VBG - no hypercapnia -with known cirrhosis on imaging rechecked ammonia level - wnl -cont BIPAP while sleeping -avoid sedatives #acute on chronic heart failure with preserved ejection fraction with resulting acute hypoxic/hypercapnic respiratory failure - -had decompensated CHF during the prior admission as well -clinically still volume overloaded with effusions, edema of LEs, O2 requirement, etc. - but volume status improving -in addition to diastolic CHF his hypoalbuminemia, severe CHLOE, + cirrhosis also likely contributing to volume overload -cont HD for volume control #right-sided pleural effusion - -s/p thoracentesis with 800ml removed -transudative fluid, however culture grew staph haemolyticus -Dr Keyes feels this is likely contaminant as the original cell counts and Lites' Criteria pointed towards transudative fluid rather than exudative -he is already on IV ancef which would cover this organism anyway #Left lower extremity ulcer on raza - -local wound care with Aquacel Ag + Optifoam dressing -a wound cx was taken from this region showing multiple pathogens, but still no suspicion of infection or cellulitis based on clinical exam of this ulcer -cont to monitor the wound -appreciate wound care assistance #Sacral abscess - sebaceous cyst - -POD #7 s/p I & D and removal of the cyst by Dr Nesbitt -woundvac in place; cont exchanges by wound care #Staph aureus bacteremia - -dx last admission in November 2024 -source - infected right THR -due to medical complexity and other factors, orthopedics recommended no explantation of right hip hardware or I/D procedure -continue cefazolin renally dosed with last date 01/28/25 -then cefadroxil for chronic oral suppression -RUE PICC line in place remains #BPH with urinary retention - -prior admission wolfe catheter removed prior to discharge -patient reported it was placed back while rehabbing at [facility] -continue tamsulosin -cont wolfe #Nondisplaced right femoral periprosthetic intertrochanteric fracture - -Diagnosed last admission -no surgical Rx needed -WBAT when working with PT/OT #Chronic anemia - -cont to trend CBC -s/p IV venofer x 5 doses #Toe ulcers - -cont local wound care #Chronic atrial fibrillation/hypertension - -Xarelto on hold due to recent thoracentesis and need for HD catheter placement -cont metoprolol 75mg BID -since starting HD rates have been worse, likely due to fluid shifts etc. -resume diltiazem - start IR 30mg q6h with titration as needed -since he needs permcath placement will hold off on starting back Xarelto and cont IV heparin instead #COPD - -no exacerbation at this time -Duonebs PRN -Continue Trelegy #Type 2 Diabetes mellitus - -Stopped Jardiance due to CHLOE last admission -HbA1C 6.7% -continue NovoLog SSI -continue Lantus daily #Hyperlipidemia - -Continue atorvastatin #Chronic gout - -allopurinol held at [facility], uric acid 7.1 -resumed at lower dose/renal dosing (50mg q48h) #AISHA - -cont home BIPAP HS and naps -blend O2 into the BIPAP as needed #mental health - -I am concerned he has fallen into a depression in light of declining health and ever-mounting medical problems -offered to start anti-depressant -- he declined for now -consider pastoral consult -consider behavioral health liaison consult -supportive therapy given to patient today VTE Prophylaxis - heparin drip recent dysphagia - speech therapy re-examined him and removed the "easy to chew" consistency cont PT,OT when feasible pt's daughter updated at bedside 48 hours ago appreciate nephrology & vasc surg assistance Admission and Anticipated Discharge Date Admission Date: January 06, 2025 Subjective patient resting in bed he was awake, able to have a conversation asked him if he felt depressed and if he wanted to initiate an anti-depressant -- declined such he said multiple times "I just want to be home" did tell him that if at any point he was tired of all the medical treatments, HD, etc he could talk to us about his wishes at this point he still wants to plunge forward and continue HD with the ultimate goal of landing home denied any dyspnea at rest denied chest pain did not mention any right hip pain today eating is improved vs last week tele - rates still fast/>100 Review of Systems Review of Systems: gen - fatigued, tired, weak cv - no chest pain, no orthopnea pulm - no dyspnea at rest GI - no N/V Physical Exam Physical Exam: gen - lying in bed, looks depressed neck - JVD+ mouth - MMM heart - irregularly irregular, s1 s2, 1/6 systolic murmur LLSB/axillary region; still tachy lungs - decreased BS right base, CTA b/l anteriorly abd - soft, NT, BS+, ND ext - 1-2+ pitting edema from feet to knees b/l; edema of arms b/l improved psych - awake, alert, oriented, restricted affect skin - ulcer left raza with yellow/white exudate covering the ulcer-- no eloisa- wound cellulitis vascular - right IJ HD catheter in place Results & Data Results & Data Vital Signs (Past 12 Hours) Vital Signs Temp Pulse Pulse Resp BP Pulse Ox O2 Del Method 01/15/25 14:55 82 18 98 Nasal Cannula 01/15/25 14:13 101 H 01/15/25 11:28 36.6 C 104 H 20 99/63 L 97 Room Air 01/15/25 11:26 Nasal Cannula 01/15/25 11:22 90 18 95 Nasal Cannula 01/15/25 07:45 36.6 C 119 H 20 123/79 97 High Flow Nasal Cannula 01/15/25 07:08 86 01/15/25 07:03 92 H 20 100 CPAP O2 Flow Rate 01/15/25 14:55 4 01/15/25 14:13 01/15/25 11:28 6 01/15/25 11:26 4 01/15/25 11:22 4 01/15/25 07:45 6 01/15/25 07:08 01/15/25 07:03 6 Laboratory Results Laboratory Results - last 24 hours 01/15/25 01/15/25 05:49 07:30 Heparin Anti-Xa, Unfract 0.26 L Sodium 137 Potassium 4.6 Chloride 102 Carbon Dioxide 30 Anion Gap 5 BUN 42 H Creatinine 2.70 H Est Cr Clr Drug Dosing 35.3 eGFR 24.43 BUN/Creatinine Ratio 15.6 Glucose 95 POC Glucose 101 H Calcium 8.3 L 01/15/25 01/15/25 01/15/25 11:29 12:41 16:44 Heparin Anti-Xa, Unfract 0.37 POC Glucose 160 H 111 H PG Care Time/CCT Total # of Minutes Spent Total Time Spent with Patient: Total time spent is greater than 50% in coordination of care (as documented) at patient's floor/unit and/or counseling patient: Coding Level of Care Code 72325 SUB INP/OBS CARE 2/35MIN Diagnoses Acute on chronic heart failure with preserved ejection fraction I50.33 CHLOE (acute kidney injury) N17.9 Uremia N19 Prosthetic joint infection T84.50XA Staphylococcus aureus bacteremia R78.81; B95.61 AISHA treated with BiPAP G47.33 Abscess of sacrum M46.28 Chronic anemia D64.9
[2025-01-16 06:39] LABS: Hematocrit (blood only) 26.5 % (42.0-52.0); Hemoglobin 8.3 g/dL (14.0-18.0); Mean Corpuscular Hemoglobin 31.4 pg (25.0-34.0); Mean Corpuscular Volume 100.4 fL (80.0-100.0); Platelet Count 197 K/uL (130-400); RDW Standard Deviation 73.8 fL (36.4-46.3); Red Blood Count 2.64 M/uL (4.70-6.10); White Blood Count 8.47 K/ul (4.8-10.8)
[2025-01-16 07:08] LABS: Albumin Level 3.0 gm/dl (3.4-5.0); Anion Gap 7.0 (3-11); Blood Urea Nitrogen 51.0 mg/dl (6-23); Calcium 8.6 mg/dl (8.6-10.3); Carbon Dioxide 28.0 mmol/L (21-32); Chloride 98.0 mmol/L (98-107); Creatinine Clr Calc Pharmacy 27.8 ml/min; Glucose 90.0 mg/dl (70-99(Fasting)); Potassium 4.9 mmol/L (3.5-5.1); Sodium 133.0 mmol/L (136-145)
--- NOTE | 2025-01-16 07:19 | History & Physical Bridge Note ---
Date of Service January 16, 2025 History & Physical Bridge Note I have examined the patient, reviewed the History & Physical and in the interval since the performance of the History & Physical I have noted the following changes of clinical significance: no changes noted. Plan for central venous line exchange to tunneled line this morning. Heparin held since 0600.
[2025-01-16] MEDS: SODIUM CHLORIDE 0.9% 1,000 ML IV SCH (08:38)
[2025-01-16] MEDS: LIDOCAINE 1% LOCAL 20 ML VIAL ONE (09:25)
--- NOTE | 2025-01-16 09:31 | Post Operative Brief Note ---
Immediate Post Op Note Date of Surgery January 16, 2025 Pre & Post Diagnosis Operation Date: 01/16/25 09:00 Pre-Op Diagnosis: Need for dialysis access. Post-Op Diagnosis: Need for dialysis access. I identified the patient and participated in the time-out.: Yes Procedure Operation Date: 01/16/25 09:00 Actual Procedures p Exchange of Perm Catheter, Moderate Sedation 908-(Right) - Francisco Javier Gonzalez MD Surgeon Francisco Javier Gonzalez MD Wool Scourer Mercedes Rodriguez PA-C Estimated Blood Loss 5 Findings Consistent with Post-Op Diagnosis Drains Watson Catheter (arrived to OR with Watson intact) Anesthesia Type RN Sedation Complications none Disposition Accompanied Patient To Recovery: Yes Disposition: Recovery Room
--- NOTE | 2025-01-16 09:36 | Operative Report ---
PG Post Operative Report Pre & Post Diagnosis Operation Date: 01/16/25 09:00 Pre-Op Diagnosis: Need for dialysis access. Post-Op Diagnosis: Need for dialysis access. I identified the patient and participated in the time-out.: Yes Procedure Operation Date: 01/16/25 09:00 Actual Procedures p Exchange of Perm Catheter, Moderate Sedation [id number](Right) - Francisco Javier Gonzalez MD Surgeon Francisco Javier Gonzalez MD Clinical Dietitian Mercedes Rodriguez PA-C Estimated Blood Loss 5 Findings Consistent with Post-Op Diagnosis Specimens none Anesthesia Type RN Sedation Complications none Disposition Accompanied Patient To Recovery: Yes Disposition: Recovery Room Indications 69-year-old gentleman in need of access for long-term hemodialysis. A temporary nontunneled dialysis catheter is already in place via the right internal jugular vein. Exchanged to tunneled access has been requested. Risk goals and alternatives were discussed the patient who understood and gave consent to proceed. Description of Procedure A timeout was performed and the patient was identified and procedure verified. Conscious sedation was administered under my direction. The right neck was prepped and draped usual sterile fashion. 1% lidocaine local was used to create a counterincision on the right chest wall and a subcutaneous tunnel was created to connect this incision to the catheter exit site. A 0.035 inch stiff angled Glidewire was then inserted into the dialysis catheter under fluoroscopic control. The previously placed dialysis catheter was removed and a peel-away sheath was inserted under fluoroscopic control. The new 19 cm glidepath catheter was brought through the subcutaneous tunnel and placed into the peel- away sheath under fluoroscopic control. The peel-away sheath was removed. The catheter was in good position at the right atrial caval junction and aspirated and flushed easily. It was instilled with low-dose heparin. The patient is to be dialyzed later today. The exit site of the catheter was sutured and the catheter was secured. The exit site of the jugular vein was closed with subcuticular Vicryl and Dermabond. The patient was taken the recovery area in stable condition he tolerated the procedure well without immediate complication. Conscious sedation start 910 and 935. 25 mcg fentanyl I attest to the content of the Intraoperative Record and any orders documented therein. Any exceptions are noted below.
[2025-01-16] MEDS: HEPARIN SOD (PORCINE) 5,000 UNITS/ML VIAL ONE (12:21)
--- NOTE | 2025-01-16 12:23 | Nephrology Progress Note ---
Date of Service January 16, 2025 Assessment & Plan (1) CHLOE (acute kidney injury): Plan: Non-oliguric. Madhu started HD 01/12/25 for advanced kidney dysfunction with uremia and volume overload. Dr. Keyes placed a temporary hemodialysis catheter without complications immediately prior to treatment. The third HD treatment was completed yesterday. Volume status is reasonably controlled. Electrolytes normal. HD will be held today. I discussed the logistics of placement of a permcath with vascular surgery, the patient, and the patient's . Unless there is rapid improvement in kidney function which is unlikely, TDC placement would be advised. I have consulted with Dr. Gonzalez regarding the timing/availability. Madhu remains on a heparin gtt in the interim. Midodrine has been provided prior to HD treatments to assist with UF. The etiology of CHLOE is not clear. Urine microscopy -- WBCs, RBCs, +hyaline and granular casts. There is a component of ATN but I cannot exclude underlying GN or interstitial nephritis. Ultimately, kidney biopsy would be required for definitive diagnosis. Post infectious or C3 glomerulopathy remain in the differential and repeat complement levels have been sent. Biopsy option deferred pending stability in his condition. Cefazolin dosed for IHD. Medications are appropriately dosed for kidney function. Document strict I/O's. I will plan for Madhu's next HD treatment tomorrow. (2) Acute respiratory failure with hypoxia: Plan: Improving volume overload. (3) Staphylococcus aureus bacteremia: Plan: Remains on Cefazolin dosing for IHD. (4) Chronic anemia: Plan: H/H stable. Epogen 31266 units x 1 dose on 01/09/25. Next dose with HD tomorrow. Venofer 200 mg IV daily x 5 doses completed 01/13. (5) Chronic atrial fibrillation: Plan: Xarelto held pending potential TDC placement later this week. AC with heparin in the interim. Vascular surgery consultation requested to help plan appropriate timing for permcath placement. I have been in contact with Dr. Gonzalez. Admission and Anticipated Discharge Date Admission Date: January 06, 2025 Physical Exam Constitutional: + ill appearing and + frail appearing; n o acute distress Eyes: + anicteric sclerae ENMT: external ear and nose normal, oropharynx normal Mouth: + dry oral mucous membranes Neck: normal visual inspection and trachea midline Respiratory: normal respiratory effort and + tachypneic; no respiratory distress Auscultation: lungs clear to auscultation bilaterally and + diminished lung sounds Cardiovascular: Rate/Rhythm: regular rate Heart Sounds: normal S1 and normal S2 Extremities: + edema (L>R pitting/dependent) Musculoskeletal: Extremities: no cyanosis and no clubbing Skin: normal turgor; no jaundice Neurologic: Motor/Sensory: no tremor and no asterixis Psychiatric: Orientation: alert and oriented x 3 Results & Data Vital Signs (Past 12 Hours) Vital Signs Temp Pulse Pulse Pulse Resp BP BP 01/16/25 11:40 36.3 C L 120 H 20 121/78 01/16/25 11:09 01/16/25 10:55 104 H 18 01/16/25 09:51 100 H 18 126/72 01/16/25 09:30 114 H 33 H 128/93 01/16/25 09:29 104 H 28 H 122/91 01/16/25 09:24 104 H 28 H 125/82 01/16/25 09:19 100 H 10 L 123/94 01/16/25 09:14 104 H 10 L 130/86 01/16/25 09:14 99 H 19 119/84 01/16/25 09:09 108 H 24 119/89 01/16/25 09:06 102 H 13 133/83 01/16/25 08:26 36.6 C 92 H 20 120/63 01/16/25 07:59 87 01/16/25 07:44 36.3 C L 84 16 128/82 01/16/25 07:15 94 H 18 01/16/25 03:11 36.6 C 87 18 138/84 Pulse Ox O2 Del Method O2 Flow Rate 01/16/25 11:40 91 High Flow Nasal Cannula 11 01/16/25 11:09 High Flow Nasal Cannula 12 01/16/25 10:55 90 Nasal Cannula 12 01/16/25 09:51 87 L High Flow Nasal Cannula 10 01/16/25 09:30 100 Oxymask 6 01/16/25 09:29 99 Oxymask 6 01/16/25 09:24 99 Oxymask 6 01/16/25 09:19 97 Oxymask 6 01/16/25 09:14 97 Oxymask 6 01/16/25 09:14 97 Oxymask 6 01/16/25 09:09 94 Oxymask 12 01/16/25 09:06 93 Oxymask 12 01/16/25 08:26 92 Nasal Cannula 01/16/25 07:59 01/16/25 07:44 95 High Flow Nasal Cannula 01/16/25 07:15 96 Nasal Cannula 7 01/16/25 03:11 96 CPAP PG Care Time/CCT Total # of Minutes Spent Total Time Spent with Patient: Total time spent is greater than 50% in coordination of care (as documented) at patient's floor/unit and/or counseling patient: Coding Diagnoses CHLOE (acute kidney injury) N17.9 Acute respiratory failure with hypoxia J96.01 Staphylococcus aureus bacteremia R78.81; B95.61 Chronic anemia D64.9 Chronic atrial fibrillation I48.20
--- NOTE | 2025-01-16 12:41 | Hospitalist Progress Note ---
Date of Service January 16, 2025 Assessment & Plan (1) Acute on chronic heart failure with preserved ejection fraction: Plan: Intravenous Bumex has been restarted today, January 16. Chest x-ray done today, January 16, continues to show CHF changes. Monitor intake and output. Serial chest x-ray (2) CHLOE (acute kidney injury): Plan: Creatinine level is trending upward, now 3.4. Tunneled dialysis catheter placed today for hemodialysis purposes. Appreciate nephrology consultation and management (3) Uremia: Plan: Due to acute renal failure. Serial labs. Appreciate nephrology consultation and recommendations (4) Prosthetic joint infection: Plan: Currently on intravenous Ancef (5) Staphylococcus aureus bacteremia: Plan: Currently on intravenous Ancef (6) Abscess of sacrum: Plan: Status post incision and drainage with sacral cyst removal. Postoperative day #7. Continue wound care assessments and wound VAC (7) Chronic anemia: Plan: Serial labs. Transfuse as needed (8) Metabolic encephalopathy: Plan: Present on admission. Now resolved Plan Hopeful eventual return to [facility] sometime next week Admission and Anticipated Discharge Date Admission Date: January 06, 2025 Subjective The patient was seen after tunneled dialysis catheter placement earlier today, January 16. He is alert and oriented without distress. Heparin drip has been switched back to oral Xarelto. His chest x-ray today appears wet. IV Bumex has been restarted. Glucose is only 90 and daily low-dose basal insulin has been discontinued. Review of Systems 2 Review of Systems: Constitutionalno fever or chills ENTno blurred vision, no double vision, no epistaxis, no sore throat Respiratoryno cough, no wheezing, no shortness of breath at rest Cardiacno palpitations, no chest pain, no syncope Bakari nausea, vomiting, diarrhea, melena, hematochezia GUno urinary retention, no urinary incontinence, no dysuria, no hematuria Musculoskeletalno joint pain, no muscle tenderness Skinno bruising, no rashes, no pruritus. Chronic lower extremity edema bilaterally Neurono isolated weakness, no paresthesia, no weakness Psychno depression, no anxiety Physical Exam 2 Physical Exam: General-alert and oriented x3, no fever, no chills HEENT-head atraumatic and normocephalic, pupils equal and reactive to light, extraocular muscles intact Neck-no lymphadenopathy or thyromegaly, trachea midline Chest-clear to auscultation. No rales, wheezing or rhonchi Cardiac-regular rate and rhythm, normal S1 and S2 Abdomen-normal bowel sounds, no hepatosplenomegaly Extremities-chronic appearing bilateral lower extremity edema with chronic venous stasis changes Neuro-cranial nerves II through XII intact, motor and sensory function within normal limits, strength symmetrical, no focal deficits Psych-normal affect, normal mood Results & Data Results & Data Vital Signs (Past 12 Hours) Vital Signs Temp Pulse Pulse Pulse Resp BP BP 01/16/25 11:40 36.3 C L 120 H 20 121/78 01/16/25 11:09 01/16/25 10:55 104 H 18 01/16/25 09:51 100 H 18 126/72 01/16/25 09:30 114 H 33 H 128/93 01/16/25 09:29 104 H 28 H 122/91 01/16/25 09:24 104 H 28 H 125/82 01/16/25 09:19 100 H 10 L 123/94 01/16/25 09:14 104 H 10 L 130/86 01/16/25 09:14 99 H 19 119/84 01/16/25 09:09 108 H 24 119/89 01/16/25 09:06 102 H 13 133/83 01/16/25 08:26 36.6 C 92 H 20 120/63 01/16/25 07:59 87 01/16/25 07:44 36.3 C L 84 16 128/82 01/16/25 07:15 94 H 18 01/16/25 03:11 36.6 C 87 18 138/84 Pulse Ox O2 Del Method O2 Flow Rate 01/16/25 11:40 91 High Flow Nasal Cannula 11 01/16/25 11:09 High Flow Nasal Cannula 12 01/16/25 10:55 90 Nasal Cannula 12 01/16/25 09:51 87 L High Flow Nasal Cannula 10 01/16/25 09:30 100 Oxymask 6 01/16/25 09:29 99 Oxymask 6 01/16/25 09:24 99 Oxymask 6 01/16/25 09:19 97 Oxymask 6 01/16/25 09:14 97 Oxymask 6 01/16/25 09:14 97 Oxymask 6 01/16/25 09:09 94 Oxymask 12 01/16/25 09:06 93 Oxymask 12 01/16/25 08:26 92 Nasal Cannula 01/16/25 07:59 01/16/25 07:44 95 High Flow Nasal Cannula 01/16/25 07:15 96 Nasal Cannula 7 01/16/25 03:11 96 CPAP Laboratory Results 01/16/25 06:12 01/16/25 06:12 PG Care Time/CCT Total # of Minutes Spent Total Time Spent with Patient: Total time spent is greater than 50% in coordination of care (as documented) at patient's floor/unit and/or counseling patient: Coding Level of Care Code 56583 SUB INP/OBS CARE 3/50MIN Diagnoses Acute on chronic heart failure with preserved ejection fraction I50.33 CHLOE (acute kidney injury) N17.9 Uremia N19 Prosthetic joint infection T84.50XA Staphylococcus aureus bacteremia R78.81; B95.61 Abscess of sacrum M46.28 Chronic anemia D64.9 Metabolic encephalopathy G93.41
--- NOTE | 2025-01-16 12:56 | XRay Report ---
XR chest 1V portable CLINICAL HISTORY: CHF, hypoxia COMPARISON STUDY: 01/12/2025 FINDINGS: Interval right dialysis catheter tip is in the SVC. Right PICC line tip is at the cavoatria l junction. There is stable cardiomegaly with pulmonary vascular congestion. Stable small bilateral p leural effusions and lung base consolidation. No pneumothorax. IMPRESSION: CHF with stable pleural effusions and lung base consolidation. ACT 112: Negative or not required by law. Electronically signed by: Trevor Arteaga M.D. 01/16/2025 12:55 PM
[2025-01-16] MEDS: MIDODRINE HCL 2.5 MG TAB PO ONE (13:32)
--- NOTE | 2025-01-16 16:01 | Nephrology Progress Note ---
Date of Service January 16, 2025 Assessment & Plan (1) CHLOE (acute kidney injury): Plan: Non-oliguric. Madhu started HD 01/12/25 via a temp HD catheter for advanced kidney dysfunction with uremia and volume overload. Unfortunately, kidney function has not recovered. A permcath was placed this AM (01/16) by Dr. Gonzalez without complications. HD was performed post permcath placement without complications. Madhu tolerated dialysis well. Midodrine has been provided prior to HD treatments to assist with UF. The etiology of CHLOE is not entirely clear. Urine microscopy -- WBCs, RBCs, +hyaline and granular casts. There is a component of ATN but I cannot exclude underlying GN or interstitial nephritis. Ultimately, kidney biopsy would be required for definitive diagnosis. Post infectious or C3 glomerulopathy remain in the differential and repeat complement levels have been sent. Biopsy option deferred pending stability in his condition -- frailty and recent infection involving prosthetic joint requiring prolonged antibiotic therapy and for which immunosuppressive therapy would be risky. Cefazolin dosed for IHD. Medications are appropriately dosed for kidney function. Bumex may be restarted to encourage urine output. Next HD anticipated Tuesday. (2) Acute respiratory failure with hypoxia: Plan: Improving volume overload. (3) Staphylococcus aureus bacteremia: Plan: Remains on Cefazolin dosing for IHD. (4) Chronic anemia: Plan: H/H stable. Epogen 10807 units x 1 dose on 01/09/25. Epogen 07362 units with HD today. Venofer 200 mg IV daily x 5 doses completed 01/13. (5) Chronic atrial fibrillation: Plan: Xarelto held for TDC placement. The medication may be restarted now at the discretion of the hospitalist. AC with heparin in the interim. Admission and Anticipated Discharge Date Admission Date: January 06, 2025 Subjective No acute events overnight. Tunneled HD catheter placed today without complications. Madhu feels reasonably well. He continues to endorse weakness and fatigue but denies significant dyspnea. He tolerated HD reasonably well today. He was seen and evaluated this AM prior to catheter placement and during hemodialysis. Pain in sacrum appears reasonably controlled. No fevers or chills. Review of Systems Review of Systems: All systems reviewed & are unremarkable except as noted in HPI & below Physical Exam Constitutional: + frail appearing; no acute distress Eyes: + anicteric sclerae ENMT: external ear and nose normal, oropharynx normal Mouth: + dry oral mucous membranes Neck: normal visual inspection and trachea midline Respiratory: normal respiratory effort Auscultation: lungs clear to auscultation bilaterally and + diminished lung sounds Cardiovascular: Rate/Rhythm: regular rate Heart Sounds: normal S1 and normal S2 Extremities: + edema (L>R pitting/dependent) Musculoskeletal: Extremities: no cyanosis and no clubbing Skin: normal turgor; no jaundice Neurologic: Motor/Sensory: no tremor and no asterixis Psychiatric: Orientation: alert and oriented x 3 Results & Data Vital Signs (Past 12 Hours) Vital Signs Temp Pulse Pulse Pulse Resp BP BP 01/16/25 15:30 79 119/82 01/16/25 15:00 81 123/83 01/16/25 14:30 84 126/80 01/16/25 14:30 90 01/16/25 14:00 94 H 124/83 01/16/25 13:55 92 H 126/83 01/16/25 13:49 36.3 C L 74 01/16/25 11:40 36.3 C L 120 H 20 01/16/25 11:09 01/16/25 10:55 104 H 18 01/16/25 09:51 100 H 18 01/16/25 09:30 114 H 33 H 01/16/25 09:29 104 H 28 H 01/16/25 09:24 104 H 28 H 01/16/25 09:19 100 H 10 L 01/16/25 09:14 104 H 10 L 01/16/25 09:14 99 H 19 01/16/25 09:09 108 H 24 01/16/25 09:06 102 H 13 01/16/25 08:26 36.6 C 92 H 20 01/16/25 07:59 87 01/16/25 07:44 36.3 C L 84 16 128/82 01/16/25 07:15 94 H 18 BP Pulse Ox O2 Del Method O2 Flow Rate 01/16/25 15:30 01/16/25 15:00 01/16/25 14:30 01/16/25 14:30 01/16/25 14:00 01/16/25 13:55 01/16/25 13:49 01/16/25 11:40 121/78 91 High Flow Nasal Cannula 01/16/25 11:09 High Flow Nasal Cannula 12 01/16/25 10:55 90 Nasal Cannula 12 01/16/25 09:51 126/72 87 L High Flow Nasal Cannula 10 01/16/25 09:30 128/93 100 Oxymask 6 01/16/25 09:29 122/91 99 Oxymask 6 01/16/25 09:24 125/82 99 Oxymask 6 01/16/25 09:19 123/94 97 Oxymask 6 01/16/25 09:14 130/86 97 Oxymask 6 01/16/25 09:14 119/84 97 Oxymask 6 01/16/25 09:09 119/89 94 Oxymask 12 01/16/25 09:06 133/83 93 Oxymask 12 01/16/25 08:26 120/63 92 Nasal Cannula 01/16/25 07:59 01/16/25 07:44 95 High Flow Nasal Cannula 01/16/25 07:15 96 Nasal Cannula 7 Laboratory Results Laboratory Results - last 24 hr 01/15/25 01/15/25 01/16/25 16:44 20:28 06:12 WBC 8.47 RBC 2.64 L Hgb 8.3 L Hct 26.5 L MCV 100.4 H MCH 31.4 MCHC 31.3 L RDW Std Deviation 73.8 H RDW Coeff of Marce 19.9 H Plt Count 197 MPV 11.2 Absolute Nucleated RBC 0.02 Nucleated RBC % (auto) 0.2 Sodium 133 L Potassium 4.9 Chloride 98 Carbon Dioxide 28 Anion Gap 7 BUN 51 H Creatinine 3.44 H D Est Cr Clr Drug Dosing 27.8 eGFR 18.27 BUN/Creatinine Ratio 14.8 Glucose 90 POC Glucose 111 H 138 H Calcium 8.6 Phosphorus 4.4 Albumin 3.0 L 01/16/25 01/16/25 01/16/25 07:42 08:26 11:39 WBC RBC Hgb Hct MCV MCH MCHC RDW Std Deviation RDW Coeff of Marce Plt Count MPV Absolute Nucleated RBC Nucleated RBC % (auto) Sodium Potassium Chloride Carbon Dioxide Anion Gap BUN Creatinine Est Cr Clr Drug Dosing eGFR BUN/Creatinine Ratio Glucose POC Glucose 94 99 101 H Calcium Phosphorus Albumin PG Care Time/CCT Total # of Minutes Spent Total Time Spent with Patient: Total time spent is greater than 50% in coordination of care (as documented) at patient's floor/unit and/or counseling patient: Coding Level of Care Code 46771 SUB INP/OBS CARE MIN Diagnoses CHLOE (acute kidney injury) N17.9 Acute respiratory failure with hypoxia J96.01 Staphylococcus aureus bacteremia R78.81; B95.61 Chronic anemia D64.9 Chronic atrial fibrillation I48.20
[2025-01-16] MEDS: EPOETIN ALFA 40,000 UNITS/ML VIAL IV ONE (16:34)
[2025-01-16] MEDS: BUMETANIDE 2 MG in SYRINGE 0 ML IV SCH (16:46)
[2025-01-16] MEDS: RIVAROXABAN 15 MG TAB PO SCH (17:21)
[2025-01-17 07:16] LABS: Hematocrit (blood only) 24.0 % (42.0-52.0); Hemoglobin 7.7 g/dL (14.0-18.0); Immature Granulocytes # (auto) 0.03 K/uL (0.01-0.20); Immature Granulocytes % (auto) 0.4 %; Mean Corpuscular Hemoglobin 32.1 pg (25.0-34.0); Mean Corpuscular Volume 100.0 fL (80.0-100.0); Platelet Count 193 K/uL (130-400); RDW Standard Deviation 72.1 fL (36.4-46.3); Red Blood Count 2.40 M/uL (4.70-6.10); White Blood Count 6.80 K/ul (4.8-10.8)
[2025-01-17 07:34] LABS: Anion Gap 7.0 (3-11); Blood Urea Nitrogen 34.0 mg/dl (6-23); Calcium 8.4 mg/dl (8.6-10.3); Carbon Dioxide 28.0 mmol/L (21-32); Chloride 100.0 mmol/L (98-107); Creatinine Clr Calc Pharmacy 33.0 ml/min; Glucose 83.0 mg/dl (70-99(Fasting)); Potassium 4.5 mmol/L (3.5-5.1); Sodium 135.0 mmol/L (136-145)
[2025-01-17 07:39] LABS: Anisocytosis Present; Ovalocytes 1+; Polychromasia 1+; Tear Drop Cells 1+
--- NOTE | 2025-01-17 10:16 | Hospitalist Progress Note ---
Date of Service January 17, 2025 Assessment & Plan (1) Acute on chronic heart failure with preserved ejection fraction: Plan: -Cont IV Bumex -Monitor intake and output. -Serial chest x-ray (2) CHLOE (acute kidney injury): Plan: -Tunneled dialysis catheter placed -hemodialysis yesterday with next session of Tuesday -nephrology following (3) Uremia: Plan: Due to acute renal failure. Serial labs. Appreciate nephrology consultation and recommendations (4) Prosthetic joint infection: Plan: Currently on intravenous Ancef (5) Staphylococcus aureus bacteremia: Plan: Currently on intravenous Ancef (6) Abscess of sacrum: Plan: Status post incision and drainage with sacral cyst removal. Postoperative day #8. Continue wound care assessments and wound VAC (7) Chronic anemia: Plan: Serial labs. Transfuse as needed (8) Metabolic encephalopathy: Plan: Present on admission. Now resolved Plan Hopeful eventual return to [facility] sometime next week Admission and Anticipated Discharge Date Admission Date: January 06, 2025 Subjective No events overnight. Pt states his breathing has improved after HD yesterday. Review of Systems Review of Systems: Constitutionalno fever or chills ENTno blurred vision, no double vision, no epistaxis, no sore throat Respiratoryno cough, no wheezing, no shortness of breath at rest Cardiacno palpitations, no chest pain, no syncope Bakari nausea, vomiting, diarrhea, melena, hematochezia GUno urinary retention, no urinary incontinence, no dysuria, no hematuria Musculoskeletalno joint pain, no muscle tenderness Skinno bruising, no rashes, no pruritus. Chronic lower extremity edema bilaterally Neurono isolated weakness, no paresthesia, no weakness Psychno depression, no anxiety Physical Exam Physical Exam: GENERAL APPEARANCE NAD, activity normal for age, well developed/ well nourished, no cyanosis, pallor, or diaphoresis. EYES lids/conjunctiva normal. EARS/NOSE/THROAT Mucous membranes moist, nares normal, lips/teeth normal uvula midline without oral pharyngeal erythema, exudate or swelling TMs normal bilaterally. No lymphangitis/lymphedema. HEAD/NECK normocephalic atraumatic, no facial trauma, neck is supple. RESPIRATORY respiratory effort normal, speaks in full sentences, no tripod position, no accessory muscle use. Lungs clear to auscultation without rhonchi, wheezes, rales CARDIAC Regular rate and rhythm, no edema. ABDOMINAL Soft, ND/NT. No evidence of fluid wave. No pulsatile masses on exam, rebound tenderness, Del Castillo sign or pain over Mcburney's point. MUSCLES/EXTREMITIES No abnormal range of motion, no swelling. SKIN Warm, pink and dry. No rashes, dermatoses, petechiae or lesions. NEUROLOGICAL Speech is clear and appropriate. Normal level of consciousness. Gait and coordination are normal. 5/5 strength in all extremities. PSYCH Normal mood and affect. Judgement/competence is appropriate Results & Data Results & Data Vital Signs (Past 12 Hours) Vital Signs Temp Pulse Resp BP BP Pulse Ox O2 Del Method 01/17/25 07:25 36.7 C 94 H 19 126/86 98 Nasal Cannula 01/17/25 07:10 102 H 18 100 Nasal Cannula 01/17/25 02:51 36.6 C 93 H 20 126/74 95 CPAP 01/16/25 23:00 36.9 C 107 H 18 115/70 99 Nasal Cannula O2 Flow Rate 01/17/25 07:25 7.0 01/17/25 07:10 10 01/17/25 02:51 01/16/25 23:00 10.0 PG Care Time/CCT Total # of Minutes Spent Total Time Spent with Patient: Total time spent is greater than 50% in coordination of care (as documented) at patient's floor/unit and/or counseling patient: Coding Level of Care Code 93431 SUB INP/OBS CARE 2/35MIN Diagnoses Acute on chronic heart failure with preserved ejection fraction I50.33 CHLOE (acute kidney injury) N17.9 Uremia N19 Prosthetic joint infection T84.50XA Staphylococcus aureus bacteremia R78.81; B95.61 Abscess of sacrum M46.28 Chronic anemia D64.9 Metabolic encephalopathy G93.41
--- NOTE | 2025-01-17 10:55 | Nephrology Progress Note ---
Date of Service January 17, 2025 Assessment & Plan (1) CHLOE (acute kidney injury): Plan: Non-oliguric. Madhu started HD 01/12/25 via a temp HD catheter for advanced kidney dysfunction with uremia and volume overload. A permcath was placed 01/[address] Gonzalez without complications. The catheter worked well for HD yesterday. Adequate clearance with treatment. Tolerated UF reasonably well. HD held today. Next treatment is planned for tomorrow. We continue to monitor for renal recovery. Midodrine has been provided prior to HD treatments to assist with UF. The etiology of CHLOE is not entirely clear. Urine microscopy -- WBCs, RBCs, +hyaline and granular casts. There is a component of ATN but I cannot exclude another component of underlying GN or interstitial nephritis. Ultimately, kidney biopsy would be required for definitive diagnosis. Post infectious or C3 glomerulopathy remain in the differential and repeat complement levels have been sent and are pending. Biopsy option deferred pending stability in his condition -- frailty and recent infection involving prosthetic joint requiring prolonged antibiotic therapy and for which immunosuppressive therapy would be risky. Cefazolin dosed for IHD. Medications are appropriately dosed for kidney func tion. Bumex may be restarted to encourage urine output. Next HD anticipated tomorrow. (2) Acute respiratory failure with hypoxia: Plan: Remains markedly volume overloaded. Pleural effusion appears to be reaccumulating despite UF/negative fluid balance. (3) Staphylococcus aureus bacteremia: Plan: Remains on Cefazolin dosing for IHD. (4) Chronic anemia: Plan: H/H dropped slightly. Xarelto was restarted yesterday but there are no reported signs of bleeding. Close monitoring is being provided. Epogen 70821 units x 1 dose on 01/09/25. Epogen 56467 units with HD provided yesterday. Venofer 200 mg IV daily x 5 doses completed 01/13. (5) Chronic atrial fibrillation: Plan: Xarelto renally dosed restarted yesterday. Admission and Anticipated Discharge Date Admission Date: January 06, 2025 Subjective No acute events overnight. Madhu is resting comfortably in bed this morning. He remains weak but states that he otherwise feels well. He tolerated HD well yesterday. No complications with treatment. He feels that his breathing has improved. He acknowledges that his respiratory rate and work of breathing increase with minimal activity. Edema is slowly improving. Pain in sacrum remains his biggest complaint. No fevers or chills. Review of Systems Review of Systems: All systems reviewed & are unremarkable except as noted in HPI & below Physical Exam Constitutional: + frail appearing; no acute distress Eyes: + anicteric sclerae ENMT: external ear and nose normal, oropharynx normal Mouth: + dry oral mucous membranes Neck: normal visual inspection and trachea midline Respiratory: normal respiratory effort Auscultation: lungs clear to aus cultation bilaterally and + diminished lung sounds Cardiovascular: Rate/Rhythm: regular rate Heart Sounds: normal S1 and normal S2 Extremities: + edema (L>R pitting/dependent) Musculoskeletal: Extremities: no cyanosis and no clubbing Skin: normal turgor; no jaundice Neurologic: Motor/Sensory: no tremor and no asterixis Psychiatric: Orientation: alert and oriented x 3 Results & Data Vital Signs (Past 12 Hours) Vital Signs Temp Pulse Resp BP BP Pulse Ox O2 Del Method 01/17/25 07:25 36.7 C 94 H 19 126/86 98 Nasal Cannula 01/17/25 07:10 102 H 18 100 Nasal Cannula 01/17/25 02:51 36.6 C 93 H 20 126/74 95 CPAP 01/16/25 23:00 36.9 C 107 H 18 115/70 99 Nasal Cannula O2 Flow Rate 01/17/25 07:25 7.0 01/17/25 07:10 10 01/17/25 02:51 01/16/25 23:00 10.0 Laboratory Results Laboratory Results - last 24 hr 01/16/25 01/16/25 01/16/25 11:39 17:22 20:12 WBC RBC Hgb Hct MCV MCH MCHC RDW Std Deviation RDW Coeff of Marce Plt Count MPV Immature Gran % (Auto) Neut % (Auto) Lymph % (Auto) [place] % (Auto) Eos % (Auto) Baso % (Auto) Neut # (Auto) Lymph # (Auto) [place] # (Auto) Eos # (Auto) Baso # (Auto) Immature Gran # (Auto) Absolute Nucleated RBC Nucleated RBC % (auto) Polychromasia Anisocytosis Tear Drop Cells Ovalocytes Sodium Potassium Chloride Carbon Dioxide Anion Gap BUN Creatinine Est Cr Clr Drug Dosing eGFR BUN/Creatinine Ratio Glucose POC Glucose 101 H 105 H 154 H Calcium 01/17/25 01/17/25 06:12 07:20 WBC 6.80 RBC 2.40 L Hgb 7.7 L Hct 24.0 L MCV 100.0 MCH 32.1 MCHC 32.1 RDW Std Deviation 72.1 H RDW Coeff of Marce 19.6 H Plt Count 193 MPV 11.6 Immature Gran % (Auto) 0.4 Neut % (Auto) 73.8 Lymph % (Auto) 7.2 [place] % (Auto) 14.6 Eos % (Auto) 3.4 Baso % (Auto) 0.6 Neut # (Auto) 5.02 Lymph # (Auto) 0.49 L [place] # (Auto) 0.99 H Eos # (Auto) 0.23 Baso # (Auto) 0.04 Immature Gran # (Auto) 0.03 Absolute Nucleated RBC 0.02 Nucleated RBC % (auto) 0.3 Polychromasia 1+ Anisocytosis Present Tear Drop Cells 1+ Ovalocytes 1+ Sodium 135 L Potassium 4.5 Chloride 100 Carbon Dioxide 28 Anion Gap 7 BUN 34 H Creatinine 2.90 H D Est Cr Clr Drug Dosing 33.0 eGFR 22.42 BUN/Creatinine Ratio 11.7 Glucose 83 POC Glucose 93 Calcium 8.4 L PG Care Time/CCT Total # of Minutes Spent Total Time Spent with Patient: Total time spent is greater than 50% in coordination of care (as documented) at patient's floor/unit and/or counseling patient: Coding Level of Care Code 59995 SUB INP/OBS CARE 3/50MIN Diagnoses CHLOE (acute kidney injury) N17.9 Acute respiratory failure with hypoxia J96.01 Staphylococcus aureus bacteremia R78.81; B95.61 Chronic anemia D64.9 Chronic atrial fibrillation I48.20
[2025-01-18 08:02] LABS: Hematocrit (blood only) 27.6 % (42.0-52.0); Hemoglobin 8.7 g/dL (14.0-18.0); Immature Granulocytes # (auto) 0.03 K/uL (0.01-0.20); Immature Granulocytes % (auto) 0.4 %; Mean Corpuscular Hemoglobin 31.6 pg (25.0-34.0); Mean Corpuscular Volume 100.4 fL (80.0-100.0); Platelet Count 202 K/uL (130-400); RDW Standard Deviation 71.7 fL (36.4-46.3); Red Blood Count 2.75 M/uL (4.70-6.10); White Blood Count 7.43 K/ul (4.8-10.8)
[2025-01-18 08:29] LABS: Anion Gap 9.0 (3-11); Blood Urea Nitrogen 43.0 mg/dl (6-23); Calcium 8.5 mg/dl (8.6-10.3); Carbon Dioxide 27.0 mmol/L (21-32); Chloride 97.0 mmol/L (98-107); Creatinine Clr Calc Pharmacy 24.4 ml/min; Glucose 84.0 mg/dl (70-99(Fasting)); Potassium 4.4 mmol/L (3.5-5.1); Sodium 133.0 mmol/L (136-145)
[2025-01-18] MEDS: MIDODRINE HCL 2.5 MG TAB PO ONE (08:39)
--- NOTE | 2025-01-18 09:41 | Hospitalist Progress Note ---
Date of Service January 18, 2025 Assessment & Plan (1) Acute on chronic heart failure with preserved ejection fraction: Plan: -Cont IV Bumex -Monitor intake and output. -Serial chest x-ray (2) CHLOE (acute kidney injury): Plan: -Tunneled dialysis catheter placed -hemodialysis today, will be 2nd session -nephrology following (3) Uremia: Plan: Due to acute renal failure. Serial labs. Appreciate nephrology consultation and recommendations (4) Prosthetic joint infection: Plan: Currently on intravenous Ancef (5) Staphylococcus aureus bacteremia: Plan: Currently on intravenous Ancef (6) Abscess of sacrum: Plan: Status post incision and drainage with sacral cyst removal. Postoperative day #9. Continue wound care assessments and wound VAC (7) Chronic anemia: Plan: Serial labs. Transfuse as needed (8) Metabolic encephalopathy: Plan: Present on admission. Now resolved Plan Hopeful eventual return to [facility] sometime next week Admission and Anticipated Discharge Date Admission Date: January 06, 2025 Subjective No events overnight. Pt resting comfortably in bed. Review of Systems Review of Systems: Constitutionalno fever or chills ENTno blurred vision, no double vision, no epistaxis, no sore throat Respiratoryno cough, no wheezing, no shortness of breath at rest Cardiacno palpitations, no chest pain, no syncope Bakari nausea, vomiting, diarrhea, melena, hematochezia GUno urinary retention, no urinary incontinence, no dysuria, no hematuria Musculoskeletalno joint pain, no muscle tenderness Skinno bruising, no rashes, no pruritus. Chronic lower extremity edema bilaterally Neurono isolated weakness, no paresthesia, no weakness Psychno depression, no anxiety Physical Exam Physical Exam: GENERAL APPEARANCE NAD, activity normal for age, well developed/ well nourished, no cyanosis, pallor, or diaphoresis. EYES lids/conjunctiva normal. EARS/NOSE/THROAT Mucous membranes moist, nares normal, lips/teeth normal uvula midline without oral pharyngeal erythema, exudate or swelling TMs normal bilaterally. No lymphangitis/lymphedema. HEAD/NECK normocephalic atraumatic, no facial trauma, neck is supple. RESPIRATORY respiratory effort normal, speaks in full sentences, no tripod position, no accessory muscle use. Lungs clear to auscultation without rhonchi, wheezes, rales CARDIAC Regular rate and rhythm, no edema. ABDOMINAL Soft, ND/NT. No evidence of fluid wave. No pulsatile masses on exam, rebound tenderness, Del Castillo sign or pain over Mcburney's point. MUSCLES/EXTREMITIES No abnormal range of motion, no swelling. SKIN Warm, pink and dry. No rashes, dermatoses, petechiae or lesions. NEUROLOGICAL Speech is clear and appropriate. Normal level of consciousness. Gait and coordination are normal. 5/5 strength in all extremities. PSYCH Normal mood and affect. Judgement/competence is appropriate Results & Data Results & Data Vital Signs (Past 12 Hours) Vital Signs Temp Pulse Pulse Pulse Resp BP BP 01/18/25 07:47 36.7 C 90 20 119/73 01/18/25 07:30 90 18 01/18/25 03:06 36.7 C 78 20 111/64 01/17/25 23:22 36.8 C 81 20 121/74 Pulse Ox O2 Del Method O2 Flow Rate 01/18/25 07:47 99 Nasal Cannula 5 01/18/25 07:30 99 Nasal Cannula 7 01/18/25 03:06 100 Nasal Cannula 7.0 01/17/25 23:22 99 CPAP PG Care Time/CCT Total # of Minutes Spent Total Time Spent with Patient: Total time spent is greater than 50% in coordination of care (as documented) at patient's floor/unit and/or counseling patient: Coding Level of Care Code 54250 SUB INP/OBS CARE 2/35MIN Diagnoses Acute on chronic heart failure with preserved ejection fraction I50.33 CHLOE (acute kidney injury) N17.9 Uremia N19 Prosthetic joint infection T84.50XA Staphylococcus aureus bacteremia R78.81; B95.61 Abscess of sacrum M46.28 Chronic anemia D64.9 Metabolic encephalopathy G93.41
--- NOTE | 2025-01-18 13:07 | Nephrology Progress Note ---
Date of Service January 18, 2025 Assessment & Plan (1) CHLOE (acute kidney injury): Plan: Non-oliguric. Started HD 01/12/25 via a temp HD catheter. HD indicated for advanced kidney dysfunction with uremia and volume overload. A permcath was placed 01/[address] Gonzalez without complications. The catheter is working well. Orders for HD today were entered into the EHR and reviewed with the environmental compliance specialist. Madhu was seen and evaluated during treatment. Despite low BP, he tolerates fluid removal reasonably well. Midodrine has been provided prior to treatment to help with ultrafiltration. Madhu remains on metoprolol for atrial fibrillation with adequate rate control. He appears asymptomatic in terms of the arrhythmia. 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 We need to maintain a high degree of suspicion for a post infectious GN and thoroughly evaluate potential sources of uncontrolled infection (particularly the prosthetic joint) which may compromise any chance of kidney recovery. Urine microscopy has demonstrated WBCs, RBCs, +hyaline and granular casts. There is a certainly a component of ATN but I cannot exclude underlying GN or interstitial nephritis. U ltimately, kidney biopsy would be required for definitive diagnosis but I do not believe it would record changer tester at this time and would require transfer to a facility able to provide the service. Post infectious or C3 glomerulopathy remain in the differential. I would continue to hold off on biopsy pending stability in his condition -- frailty and recent infection involving prosthetic joint requiring prolonged antibiotic therapy and for which immunosuppressive therapy would be risky. Cefazolin dosed for IHD. Medications are appropriately dosed for kidney function. Bumex to encourage urine output. (2) Acute respiratory failure with hypoxia: Plan: Remains markedly volume overloaded. Pleural effusion monitored with serial CXR per hospitalist note. Last CXR was on 01/16 and it may be reasonable to further evaluate with a follow up non-contrast CT. (3) Staphylococcus aureus bacteremia: Plan: Remains on Cefazolin dosing for IHD. (4) Chronic anemia: Plan: H/H stable. Epogen 57530 units x 1 dose on 01/09/25. Epogen 38072 units provided 01/16/25. Venofer 200 mg IV daily x 5 doses completed 01/13. (5) Chronic atrial fibrillation: Plan: Xarelto renally dosed restarted 01/16/25. Remains on metoprolol for rate control. Admission and Anticipated Discharge Date Admission Date: January 06, 2025 Subjective No acute events overnight. Madhu was seen and evaluated during hemodialysis. He is tolerating treatment reasonably well. Hypotension persists but he has tolerate ultrafiltration of ~3+ L with treatments. Unfortunately, respiratory status remains tenuous. No fevers or chills. Madhu generally feels reasonably well and denies any complaints. Edema is improving. He remains very weak and was not able to get out of bed yesterday. He does report improvement in some pain that he was experiencing in his right leg yesterday as well as the chronic pain in his sacrum. Urine output <200 ml despite Bumex yesterday. Review of Systems Review of Systems: All systems reviewed & are unremarkable except as noted in HPI & below Physical Exam Constitutional: + frail appearing; no acute distress Eyes: + anicteric sclerae ENMT: external ear and nose normal, oropharynx normal Neck: normal visual inspection and trachea midline Respiratory: normal respiratory effort and + tachypneic; no respiratory distress Auscultation: lungs clear to auscultation bilaterally and + diminished lung sounds Cardiovascular: Rate/Rhythm: regular rate Heart Sounds: normal S1 and normal S2 Extremities: + edema (L>R pitting/dependent) Musculoskeletal: Extremities: no cyanosis and no clubbing Skin: normal turgor; no jaundice Neurologic: Motor/Sensory: no tremor and no asterixis Psychiatric: Orientation: alert and oriented x 3 Results & Data Vital Signs (Past 12 Hours) Vital Signs Temp Pulse Pulse Pulse Resp BP BP 01/18/25 12:30 67 111/64 01/18/25 12:00 69 103/54 L 01/18/25 11:30 69 105/66 01/18/25 11:00 60 107/69 01/18/25 10:30 64 116/79 01/18/25 10:00 88 121/73 01/18/25 09:42 95 H 116/80 01/18/25 09:36 36.5 C 95 H 01/18/25 09:00 90 01/18/25 08:00 01/18/25 07:47 36.7 C 90 20 01/18/25 07:30 90 18 01/18/25 03:06 36.7 C 78 20 111/64 BP Pulse Ox O2 Del Method O2 Flow Rate 01/18/25 12:30 01/18/25 12:00 01/18/25 11:30 01/18/25 11:00 01/18/25 10:30 01/18/25 10:00 01/18/25 09:42 01/18/25 09:36 01/18/25 09:00 01/18/25 08:00 High Flow Nasal Cannula 7 01/18/25 07:47 119/73 99 Nasal Cannula 5 01/18/25 07:30 99 Nasal Cannula 7 01/18/25 03:06 100 Nasal Cannula 7.0 Laboratory Results Laboratory Results - last 24 hr 01/13/25 01/17/25 01/17/25 09:41 16:14 20:20 WBC RBC Hgb Hct MCV MCH MCHC RDW Std Deviation RDW Coeff of Marce Plt Count MPV Immature Gran % (Auto) Neut % (Auto) Lymph % (Auto) [place] % (Auto) Eos % (Auto) Baso % (Auto) Neut # (Auto) Lymph # (Auto) [place] # (Auto) Eos # (Auto) Baso # (Auto) Immature Gran # (Auto) Sodium Potassium Chloride Carbon Dioxide Anion Gap BUN Creatinine Est Cr Clr Drug Dosing eGFR BUN/Creatinine Ratio Glucose POC Glucose 121 H 131 H Calcium Complement C3 15 L Complement C4 20 Tot Complement (CH50) 18 L 01/18/25 01/18/25 07:17 07:22 WBC 7.43 RBC 2.75 L Hgb 8.7 L Hct 27.6 L MCV 100.4 H MCH 31.6 MCHC 31.5 L RDW Std Deviation 71.7 H RDW Coeff of Marce 19.6 H Plt Count 202 MPV 11.2 Immature Gran % (Auto) 0.4 Neut % (Auto) 74.0 Lymph % (Auto) 6.5 [place] % (Auto) 14.3 Eos % (Auto) 4.3 Baso % (Auto) 0.5 Neut # (Auto) 5.50 Lymph # (Auto) 0.48 L [place] # (Auto) 1.06 H Eos # (Auto) 0.32 Baso # (Auto) 0.04 Immature Gran # (Auto) 0.03 Sodium 133 L Potassium 4.4 Chloride 97 L Carbon Dioxide 27 Anion Gap 9 BUN 43 H Creatinine 3.82 H D Est Cr Clr Drug Dosing 24.4 eGFR 16.11 BUN/Creatinine Ratio 11.3 Glucose 84 POC Glucose 93 Calcium 8.5 L Complement C3 Complement C4 Tot Complement (CH50) PG Care Time/CCT Total # of Minutes Spent Total Time Spent with Patient: Total time spent is greater than 50% in coordination of care (as documented) at patient's floor/unit and/or counseling patient: Coding Level of Care Code 64779 SUB INP/OBS CARE 3/50MIN Diagnoses CHLOE (acute kidney injury) N17.9 Acute respiratory failure with hypoxia J96.01 Staphylococcus aureus bacteremia R78.81; B95.61 Chronic anemia D64.9 Chronic atrial fibrillation I48.20
[2025-01-18] MEDS: APIXABAN 5 MG TABLET PO SCH (20:53)
[2025-01-19 06:29] LABS: Hematocrit (blood only) 25.7 % (42.0-52.0); Hemoglobin 8.0 g/dL (14.0-18.0); Immature Granulocytes # (auto) 0.01 K/uL (0.01-0.20); Immature Granulocytes % (auto) 0.2 %; Mean Corpuscular Hemoglobin 31.5 pg (25.0-34.0); Mean Corpuscular Volume 101.2 fL (80.0-100.0); Platelet Count 201 K/uL (130-400); RDW Standard Deviation 73.2 fL (36.4-46.3); Red Blood Count 2.54 M/uL (4.70-6.10); White Blood Count 5.78 K/ul (4.8-10.8)
[2025-01-19 07:35] LABS: Anion Gap 7.0 (3-11); Blood Urea Nitrogen 26.0 mg/dl (6-23); Calcium 8.4 mg/dl (8.6-10.3); Carbon Dioxide 28.0 mmol/L (21-32); Chloride 101.0 mmol/L (98-107); Creatinine Clr Calc Pharmacy 31.9 ml/min; Glucose 82.0 mg/dl (70-99(Fasting)); Potassium 4.8 mmol/L (3.5-5.1); Sodium 136.0 mmol/L (136-145)
--- NOTE | 2025-01-19 08:32 | XRay Report ---
EXAM: XR chest 1V portable CLINICAL HISTORY: increased oxygen requirement TECHNIQUE: X-ray image of the chest obtained in 1 frontal projection. COMPARISON: Prior X-ray dated 01/16/2025 for comparison. FINDINGS: Right central venous catheter with tip at cavoatrial junction. Pulmonary Parenchyma: Mild interval progression of air space opacities in right mid, lower zones. Unchanged air space opacities in left mid, lower zones. Unchanged obscured bilateral costophrenic angles likely pleural effusion. Heart and Mediastinum: Mild cardiomegaly. Aortic knob calcifications. No mediastinal widening or masses. No hilar or mediastinal lymphadenopathy. Bony Thorax: Bony thorax appears intact without fractures or deformities. Mild degenerative changes in bilateral shoulder joints. Soft Tissues: Soft tissues overlying the chest wall are unremarkable. IMPRESSION: Right central venous catheter with tip at cavoatrial junction. Mild interval progression of air space opacities in right mid, lower zones. Unchanged air space opacities in left mid, lower zones. Unchanged obscured bilateral costophrenic angles likely pleural effusion. Mild cardiomegaly. Clinical correlation is suggested. Electronically signed by Fidel Everett 01-19-2025 08:32 AM
--- NOTE | 2025-01-19 09:14 | Nephrology Progress Note ---
Date of Service January 19, 2025 Assessment & Plan (1) CHLOE (acute kidney injury): Plan: * Oliguric CHLOE. Nephrology evaluation to date has revealed granular casts in the urine suggestive of ATN and low C3 suggestive of infectious glomerulonephritis. Hematuria and pyuria likely a result of indwelling Watson catheter. 01/06/25 renal US revealed atrophic R kidney 7.0 cm, L 11.6 cm. No mass, stone or hydronephrosis. No skin rash suggestive of allergic drug re action * Although I&O show only net 1.7 L volume +, patient remains clinically volume overloaded w/ worsening pulmonary congestion and persistent LE swelling * Continue IV Bumex * Will provide HD today and attempt additional 3 L UF. Orders placed in EMR and document controller HD RN updated * Will provide midodrine 5 mg po prior to each HD treatment for BP support * Monitor daily UO, BMP * Low C3 is concerning for infectious GN. Frailty and anticoagulation preclude renal biopsy. Agree w/ continued antibiotic therapy. Recommend reevaluation by orthopedics and ID to determine whether hip washout is needed and to confirm antibiotic plan (2) Acute respiratory failure with hypoxia: Plan: * 01/19/25 CXR films and report reviewed today. Progressive pulmonary edema despite 3L UF yesterday. Will dialyze again today for continued UF * Will order follow up CXR for am (3) Staphylococcus aureus bacteremia: Plan: * Remains on Cefazolin dosing for IHD. (4) Chronic anemia: Plan: * Venofer 200 mg IV daily x 5 doses completed 01/13 * Will provide epogen 10,000 units IV w/ HD today (5) Chronic atrial fibrillation: Plan: * Eliquis renally dosed restarted 01/16/25. * Remains on metoprolol for rate control * Diltiazem held due to relative hypotension Admission and Anticipated Discharge Date Admission Date: January 06, 2025 Subjective Mr. Fermin was evaluated in his hospital room this morning. His daughter Maryse mcdonough was at bedside. Mr. Fermin remains oliguric. Despite Bumetanide 2 mg IV twice daily urine output was only 180 cc last 24 hours. Mr. Maria Did undergo dialysis yesterday. This was complicated by relative hypotension. Net 3 L UF was obtained. staff psychiatrist reports that patient's oxygen was weaned to 5 L/minute NC by the end of treatment. This morning, however, he is now requiring O2 at 13 L/minute. Mr. Fermin was seated in a chair this morning. Despite the increase in oxygen he reports that his breathing is more comfortable and his lower extremity swelling has improved. He currently denies angina and states that he is comfortable with his breathing. Review of Systems Constitutional: no fever Eyes: no problem reported Ear, Nose, Mouth, Throat: no problem reported Respiratory: no cough and no dyspnea Cardiovascular: no chest pain and no palpitations Gastrointestinal: no abdominal pain, no nausea, no vomiting and no diarrhea/loose stools Physical Exam Constitutional: + frail appearing; not in distress Eyes: PERRL, conjunctivae normal, anicteric sclerae ENMT: external ear and nose normal, oropharynx normal Neck: trachea midline, no thyromegaly Respiratory: able to speak in complete sentences; no respiratory distress Auscultation: + rales Cardiovascular: Rate/Rhythm: + tachycardic and + irregularly irregular Extremities: + edema (1+ pretibial pitting edema) R IJ THC with clean dry dressing in place Gastrointestinal (Abdomen): normal bowel sounds, soft, nontender, no hepatosplenomegaly Musculoskeletal: Extremities: no cyanosis and no clubbing Skin: no rashes, warm and dry Neurologic: no focal motor deficits Results & Data Vital Signs (Past 12 Hours) Vital Signs Temp Pulse Pulse Pulse Resp BP BP 01/19/25 08:11 36.7 C 127 H 20 107/70 01/19/25 06:50 90 01/19/25 06:41 01/19/25 03:22 36.7 C 86 18 114/74 01/18/25 23:23 75 01/18/25 23:23 36.6 C 79 19 103/64 Pulse Ox O2 Del Method O2 Flow Rate 01/19/25 08:11 97 Nasal Cannula 13 01/19/25 06:50 Nasal Cannula 11 01/19/25 06:41 84 L High Flow Nasal Cannula 11 01/19/25 03:22 94 Nasal Cannula 8 01/18/25 23:23 01/18/25 23:23 92 Nasal Cannula 7 Laboratory Results Laboratory Results - last 24 hr 01/18/25 01/18/25 01/19/25 16:25 20:14 05:47 WBC 5.78 RBC 2.54 L Hgb 8.0 L Hct 25.7 L MCV 101.2 H MCH 31.5 MCHC 31.1 L RDW Std Deviation 73.2 H RDW Coeff of Marce 19.8 H Plt Count 201 MPV 11.3 Immature Gran % (Auto) 0.2 Neut % (Auto) 67.9 Lymph % (Auto) 9.0 [place] % (Auto) 16.8 Eos % (Auto) 5.4 Baso % (Auto) 0.7 Neut # (Auto) 3.93 Lymph # (Auto) 0.52 L [place] # (Auto) 0.97 H Eos # (Auto) 0.31 Baso # (Auto) 0.04 Immature Gran # (Auto) 0.01 Sodium 136 Potassium 4.8 Chloride 101 Carbon Dioxide 28 Anion Gap 7 BUN 26 H Creatinine 2.93 H D Est Cr Clr Drug Dosing 31.9 eGFR 22.15 BUN/Creatinine Ratio 8.9 L Glucose 82 POC Glucose 96 100 H Calcium 8.4 L 01/19/25 07:27 WBC RBC Hgb Hct MCV MCH MCHC RDW Std Deviation RDW Coeff of Marce Plt Count MPV Immature Gran % (Auto) Neut % (Auto) Lymph % (Auto) [place] % (Auto) Eos % (Auto) Baso % (Auto) Neut # (Auto) Lymph # (Auto) [place] # (Auto) Eos # (Auto) Baso # (Auto) Immature Gran # (Auto) Sodium Potassium Chloride Carbon Dioxide Anion Gap BUN Creatinine Est Cr Clr Drug Dosing eGFR BUN/Creatinine Ratio Glucose POC Glucose 81 Calcium Diagnostic Findings Laboratory Results WBC 5.78 K/ul (4.8-10.8) 01/19/25 05:47 RBC 2.54 M/uL (4.70-6.10) L 01/19/25 05:47 Hgb 8.0 g/dL (14.0-18.0) L 01/19/25 05:47 Hct 25.7 % (42.0-52.0) L 01/19/25 05:47 MCV 101.2 fL (80.0-100.0) H 01/19/25 05:47 MCH 31.5 pg (25.0-34.0) 01/19/25 05:47 MCHC 31.1 g/dL (32.0-36.0) L 01/19/25 05:47 RDW Std Deviation 73.2 fL (36.4-46.3) H 01/19/25 05:47 RDW Coeff of Marce 19.8 % (11.5-14.5) H 01/19/25 05:47 Plt Count 201 K/uL (130-400) 01/19/25 05:47 MPV 11.3 fL (9.4-12.4) 01/19/25 05:47 Immature Gran % (Auto) 0.2 % 01/19/25 05:47 Neut % (Auto) 67.9 % 01/19/25 05:47 Lymph % (Auto) 9.0 % 01/19/25 05:47 [place] % (Auto) 16.8 % 01/19/25 05:47 Eos % (Auto) 5.4 % 01/19/25 05:47 Baso % (Auto) 0.7 % 01/19/25 05:47 Neut # (Auto) 3.93 K/uL (1.40-6.50) 01/19/25 05:47 Lymph # (Auto) 0.52 K/uL (1.20-3.40) L 01/19/25 05:47 [place] # (Auto) 0.97 K/uL (0.11-0.59) H 01/19/25 05:47 Eos # (Auto) 0.31 K/uL (0.00-0.50) 01/19/25 05:47 Baso # (Auto) 0.04 K/uL (0.00-0.20) 01/19/25 05:47 Immature Gran # (Auto) 0.01 K/uL (0.01-0.20) 01/19/25 05:47 Absolute Nucleated RBC 0.02 K/uL (0.00-0.12) 01/17/25 06:12 Nucleated RBC % (auto) 0.3 % 01/17/25 06:12 Polychromasia 1+ 01/17/25 06:12 Basophilic Stippling 1+ 01/07/25 08:40 Anisocytosis Present 01/17/25 06:12 Tear Drop Cells 1+ 01/17/25 06:12 Ovalocytes 1+ 01/17/25 06:12 Schistocytes 1+ 01/06/25 11:20 ESR 44 mm/hr (0-20) H 01/07/25 08:40 PT 15.1 Seconds (9.0-12.0) H 01/06/25 11:20 INR 1.5 (0.9-1.1) H 01/06/25 11:20 Heparin Anti-Xa, Unfract 0.37 IU/ml (0.3-0.7) 01/15/25 12:41 VBG pH 7.42 (7.36-7.41) H 01/11/25 19:16 VBG pCO2 49 mmHg (38-50) 01/11/25 19:16 VBG pO2 53 mmHg 01/11/25 19:16 VBG HCO3 32 mmol/L 01/11/25 19:16 VBG O2 Saturation 88.4 % 01/11/25 19:16 VBG Base Excess 6.1 mEq/L 01/11/25 19:16 Sodium 136 mmol/L (136-145) 01/19/25 05:47 Potassium 4.8 mmol/L (3.5-5.1) 01/19/25 05:47 Chloride 101 mmol/L (98-107) 01/19/25 05:47 Carbon Dioxide 28 mmol/L (21-32) 01/19/25 05:47 Anion Gap 7 (3-11) 01/19/25 05:47 BUN 26 mg/dl (6-23) H 01/19/25 05:47 Creatinine 2.93 mg/dl (0.6-1.4) H D 01/19/25 05:47 Est Cr Clr Drug Dosing 31.9 ml/min 01/19/25 05:47 eGFR 22.15 01/19/25 05:47 BUN/Creatinine Ratio 8.9 (10-20) L 01/19/25 05:47 Glucose 82 mg/dl (70-99(Fasting)) 01/19/25 05:47 POC Glucose 81 mg/dl (70-99) 01/19/25 07:27 Lactate 0.9 mmol/L (0.4-2.0) 01/08/25 19:31 Uric Acid 7.1 mg/dl (2.6-7.2) 01/07/25 08:40 Calcium 8.4 mg/dl (8.6-10.3) L 01/19/25 05:47 Phosphorus 4.4 mg/dl (2.5-4.9) 01/16/25 06:12 Magnesium 2.2 mg/dl (1.7-2.4) 01/08/25 19:31 Iron 24 mcg/dl (35-175) L 01/07/25 08:40 TIBC 263 mcg/dl (250-450) 01/07/25 08:40 Transferrin 188 mg/dl (200-360) L 01/07/25 08:40 Transferrin % Sat 9 % (20-50) L 01/07/25 08:40 Ferritin 123.6 ng/ml (8-388) 01/07/25 08:40 Total Bilirubin 0.3 mg/dl (0.2-1.0) 01/09/25 05:45 Direct Bilirubin 0.1 mg/dl (0-0.2) 01/06/25 11:20 AST 14 U/L (13-39) 01/08/25 19:31 ALT < 3 U/L (7-52) L 01/08/25 19:31 Alkaline Phosphatase 93 U/L (34-104) 01/08/25 19:31 Ammonia 36.0 umol/L (18-72) 01/11/25 19:16 Lactate Dehydrogenase 165 U/L (86-244) 01/09/25 05:45 Troponin I High Sens 10.9 pg/ml (0-20) 01/06/25 11:20 C-Reactive Protein 2.33 mg/dl (0-0.5) H 01/07/25 08:40 B-Natriuretic Peptide 772 pg/ml (0-100) H 01/08/25 05:34 Total Protein 5.6 gm/dl (6.0-8.3) L 01/09/25 05:45 Total Protein (PEP) 5.6 g/dL (6.1-8.1) L 01/06/25 12:01 Albumin 3.0 gm/dl (3.4-5.0) L 01/16/25 06:12 Albumin (PEP) 2.6 g/dL (3.8-4.8) L 01/06/25 12:01 Globulin 3.3 gm/dl (2.5-4.0) 01/08/25 19:31 Albumin/Globulin Ratio 0.8 (0.9-2) L 01/08/25 19:31 Rkfbf-2-Yqzkmzunt 0.5 g/dL (0.2-0.3) H 01/06/25 12:01 Zphui-1-Iaogkcecz 0.7 g/dL (0.5-0.9) 01/06/25 12:01 Dczo-1-Udbqkdda 0.3 g/dL (0.4-0.6) L 01/06/25 12:01 Noiu-5-Rbhuaife 0.3 g/dL (0.2-0.5) 01/06/25 12:01 Gamma Globulins 1.1 g/dL (0.8-1.7) 01/06/25 12:01 Monoclonal Peak 3 DNR g/dL (NONE DETECTED) 01/06/25 12:01 Ser Monoclonl Protein DNR g/dL (NONE DETECTED) 01/06/25 12:01 Ser Monoclonal Prot 2 DNR g/dL (NONE DETECTED) 01/06/25 12:01 PEP Interpretation SEE NOTE 01/06/25 12:01 Lipase 22 U/L (11-82) 01/06/25 11:20 Vitamin B12 629 pg/ml (180-914) 01/07/25 08:40 Folate 10.61 ng/ml (>5.38) 01/07/25 08:40 Procalcitonin 0.18 ng/ml (0-0.5) 01/08/25 19:31 TSH 5.200 uIu/ml (0.300-4.500) H 01/09/25 11:27 Free T4 0.89 ng/dl (0.61-1.60) 01/09/25 11:27 Urine Color Yellow 01/06/25 11:32 Urine Appearance Cloudy (Clear) A 01/06/25 11:32 Urine pH 5.0 (4.5-7.5) 01/06/25 11:32 Ur Specific [place] 1.012 (1.000-1.030) 01/06/25 11:32 Urine Protein 2+ (Negative) H 01/06/25 11:32 Urine Glucose (UA) Negative (Negative) 01/06/25 11:32 Urine Ketones Negative (Negative) 01/06/25 11:32 Urine Blood 3+ (Negative) H 01/06/25 11:32 Urine Nitrite Negative (Negative) 01/06/25 11:32 Urine Bilirubin Negative (Negative) 01/06/25 11:32 Urine Urobilinogen Negative (Negative) 01/06/25 11:32 Ur Leukocyte Esterase 2+ (Negative) H 01/06/25 11:32 Urine WBC (Auto) >50 /hpf (0-5) H 01/12/25 12:55 Urine RBC (Auto) >20 /hpf (0-2) H 01/12/25 12:55 U Hyaline Cast (Auto) >20 /lpf (0-2) H 01/12/25 12:55 U Epithel Cells (Auto) 6-10 /hpf (0-2) H 01/12/25 12:55 Urine Bacteria (Auto) None Seen (None Seen) 01/12/25 12:55 Amorphous Sediment Present (None Prsent) A 01/12/25 12:55 Granular Casts Present /lpf (None Prsent) A 01/12/25 12:55 Ur Random Creatinine 18.5 mg/dl 01/06/25 16:00 U Random Total Protein 226 mg/dL (5-25) H 01/07/25 13:00 Ur Random Sodium 89 mmol/L 01/06/25 16:00 Ur Creatinine mg/dL 91 mg/dL (20-320) 01/07/25 13:00 Protein/Creatinin Ratio 2.484 (0.025-0.148) H 01/07/25 13:00 Urine Albumin (%) 44 % 01/07/25 13:00 U Xiuxk-5-Vybjdpan (%) 8 % 01/07/25 13:00 U Bajrm-0-Bghncoag (%) 13 % 01/07/25 13:00 U Beta Globulin (%) 12 % 01/07/25 13:00 U Gamma Globulin (%) 23 % 01/07/25 13:00 U Abnormal Prot Band 1 DNR mg/dL (NONE DETECTED) 01/07/25 13:00 U Abnormal Prot Band 2 DNR mg/dL (NONE DETECTED) 01/07/25 13:00 U Abnormal Prot Band 3 DNR mg/dL (NONE DETECTED) 01/07/25 13:00 Urine PEP Interpret SEE NOTE 01/07/25 13:00 Urine Comment 01/06/25 11:32 Fluid Neutrophils % 18 % 01/09/25 10:50 Fluid Lymphocytes % 15 % 01/09/25 10:50 Fluid Basophils % 1 % 01/09/25 10:50 Fluid [place] % 66 % 01/09/25 10:50 Fluid Comment 01/09/25 10:50 Pleural Fluid Source Right Lung 01/09/25 10:50 Pleural Color Pale Yellow 01/09/25 10:50 Pleural Appearance Hazy 01/09/25 10:50 Pleural pH 7.53 (7.3-7.4) H 01/09/25 10:50 Pleural WBC (Auto) 372 /uL 01/09/25 10:50 Pleural RBC (Auto) < 2000 /uL 01/09/25 10:50 Pleural Total Protein < 3.0 gm/dl 01/09/25 10:50 Pleural LDH 61 U/L 01/09/25 10:50 Pleural Glucose 104 mg/dl 01/09/25 10:50 Pleural Amylase 25 U/L 01/09/25 10:50 Nasal Screen MRSA (PCR) Negative (Negative) 01/06/25 15:50 Complement C3 15 mg/dL (82-185) L 01/13/25 09:41 Complement C4 20 mg/dL (15-53) 01/13/25 09:41 Tot Complement (CH50) 18 U/mL (31-60) L 01/13/25 09:41 Hep Bs Antigen Negative (Negative) 01/12/25 12:01 Hep Bs Antibody Non-Immune 01/12/25 12:01 Hep Bs Antibody, Quant < 3.00 mIU/mL (>or=10mIU/mL Immune) 01/12/25 12:01 Hep B Core IgM Ab NON-REACTIVE (NON-REACTIVE) 01/12/25 12:01 Impressions Renal Ultrasound 01/06/25 13:39 Exam: Retroperitoneal ultrasound. History: Acute kidney insufficiency. Comparison: December 23, 2024. Findings: Right kidney measures 7.0 x 11.8 x 6.3 cm. No stone, mass or hydronephrosis. At least mild cortical volume loss. Left kidney measures 11.6 x 6.8 x 5.8 cm. This contains a hypoechoic through transmitting 2.1 x 2.0 x 3.1 cm nodule. This does not demonstrate color flow. No solid mass, stone or hydronephrosis. Mild cortical volume loss. Urinary bladder not evaluated on this exam. Technologist reports Watson catheter in place. Impression: Mild bilateral cortical volume loss with benign left renal cyst. Otherwise no findings to suggest source for patient's symptoms. Electronically signed by Ronnie Isaacs 01-06-2025 2:36 PM Thoracentesis/Paracentesis US 01/09/25 12:06 IR thoracentesis wo tube US CLINICAL HISTORY: Right-sided pleural effusion COMPARISON STUDY: 01/06/2025 and 12/22/2024 Technique: After the procedure was discussed and questions answered, consent was obtained. Patient was positioned seated upright. Preprocedure ultrasound demonstrates right pleural effusion. The right back was prepped and draped in standard sterile fashion. 1% lidocaine was used for local anesthesia. Under ultrasound guidance, a thoracentesis catheter was advanced to the right pleural effusion from a posterior lower intercostal approach. 800 cc of straw-colored fluid was withdrawn. Catheter was removed. Hemostasis was obtained with manual compression. Sterile dressing was applied. Postprocedure chest x-ray shows no pneumothorax. IMPRESSION: Right thoracentesis. ACT 112: Negative or not required by law. Electronically signed by: Trevor Arteaga M.D. 01/09/2025 11:20 AM Chest X-Ray 01/19/25 06:49 EXAM: XR chest 1V portable CLINICAL HISTORY: increased oxygen requirement TECHNIQUE: X-ray image of the chest obtained in 1 frontal projection. COMPARISON: Prior X-ray dated 01/16/2025 for comparison. FINDINGS: Right central venous catheter with tip at cavoatrial junction. Pulmonary Parenchyma: Mild interval progression of air space opacities in right mid, lower zones. Unchanged air space opacities in left mid, lower zones. Unchanged obscured bilateral costophrenic angles likely pleural effusion. Heart and Mediastinum: Mild cardiomegaly. Aortic knob calcifications. No mediastinal widening or masses. No hilar or mediastinal lymphadenopathy. Bony Thorax: Bony thorax appears intact without fractures or deformities. Mild degenerative changes in bilateral shoulder joints. Soft Tissues: Soft tissues overlying the chest wall are unremarkable. IMPRESSION: Right central venous catheter with tip at cavoatrial junction. Mild interval progression of air space opacities in right mid, lower zones. Unchanged air space opacities in left mid, lower zones. Unchanged obscured bilateral costophrenic angles likely pleural effusion. Mild cardiomegaly. Clinical correlation is suggested. Electronically signed by Fidel Everett 01-19-2025 08:32 AM PG Care Time/CCT Total # of Minutes Spent Total Time Spent with Patient: 60 minutes provided to review progress notes/laboratory results/CXR films/ID recommendations/telemetry over last 24 hours, interview and examine patient, contact HD on-call RN and enter orders into EMR, order am labs and CXR, discuss POC with patient and family, update medical record Coding Level of Care Code 29663 SUB INP/OBS CARE 3/50MIN Diagnoses CHLOE (acute kidney injury) N17.9 Acute respiratory failure with hypoxia J96.01 Staphylococcus aureus bacteremia R78.81; B95.61 Chronic anemia D64.9 Chronic atrial fibrillation I48.20
[2025-01-19] MEDS ORDERED: SODIUM CHLORIDE 0.9% 1,000 ML IV PRN (09:44)
[2025-01-19] MEDS: MIDODRINE HCL 2.5 MG TAB PO STA (10:25)
[2025-01-19] MEDS: EPOETIN ALFA 10,000 UNITS/ML VIAL IV ONE (12:39)
--- NOTE | 2025-01-19 13:05 | Hospitalist Progress Note ---
Date of Service January 19, 2025 Assessment & Plan (1) Acute on chronic heart failure with preserved ejection fraction: Plan: He is not making much urine but remains on intravenous Bumex. Chest x-ray done today, January 19, continues to show CHF changes. Monitor intake and output. Serial chest x-ray (2) Acute hypoxic respiratory failure: Plan: Currently requiring high flow oxygen. As CHF resolves, hopefully the oxygen requirement can be weaned down. (3) CHLOE (acute kidney injury): Plan: The patient has acute renal failure and is receiving hemodialysis at this time. Nephrology consultation and recommendations appreciated. He now has a tunneled dialysis catheter in place. (4) Uremia: Plan: Due to acute renal failure. Serial labs. Appreciate nephrology consultation and recommendations (5) Prosthetic joint infection: Plan: Currently on intravenous Ancef (6) Staphylococcus aureus bacteremia: Plan: Currently on intravenous Ancef (7) Abscess of sacrum: Plan: Status post incision and drainage with sacral cyst removal. Postoperative day #10. Continue wound care assessments and wound VAC (8) Chronic anemia: Plan: Serial labs. Transfuse as needed (9) Metabolic encephalopathy: Plan: Present on admission. Now resolved Plan Hopeful eventual return to [facility] IPR Admission and Anticipated Discharge Date Admission Date: January 06, 2025 Subjective The patient was seen in dialysis. He is alert and oriented without distress. Currently on high flow oxygen. Will wean down as tolerated. Fluid management should steadily improve as he is now receiving hemodialysis. Some bruising in the right anterior chest wall noted from the tunneled dialysis catheter but this is to be expected. No overt bleeding at this time. Review of Systems 2 Review of Systems: Constitutionalno fever or chills ENTno blurred vision, no double vision, no epistaxis, no sore throat Respiratoryno cough, no wheezing, no shortness of breath at rest Cardiacno palpitations, no chest pain, no syncope Bakari nausea, vomiting, diarrhea, melena, hematochezia GUno urinary retention, no urinary incontinence, no dysuria, no hematuria Musculoskeletalno joint pain, no muscle tenderness Skinno bruising, no rashes, no pruritus. Chronic lower extremity edema bilaterally Neurono isolated weakness, no paresthesia, no weakness Psychno depression, no anxiety Physical Exam 2 Physical Exam: General-alert and oriented x3, no fever, no chills HEENT-head atraumatic and normocephalic, pupils equal and reactive to light, extraocular muscles intact Neck-no lymphadenopathy or thyromegaly, trachea midline Chest-clear to auscultation. No rales, wheezing or rhonchi Cardiac-regular rate and rhythm, normal S1 and S2 Abdomen-normal bowel sounds, no hepatosplenomegaly Extremities-chronic appearing bilateral lower extremity edema with chronic venous stasis changes Neuro-cranial nerves II through XII intact, motor and sensory function within normal limits, strength symmetrical, no focal deficits Psych-normal affect, normal mood Results & Data Results & Data Vital Signs (Past 12 Hours) Vital Signs Temp Pulse Pulse Pulse Resp BP BP 01/19/25 12:30 78 126/85 01/19/25 12:00 79 121/77 01/19/25 11:30 79 119/76 01/19/25 11:06 82 01/19/25 11:00 78 113/76 01/19/25 10:34 57 L 110/77 01/19/25 10:24 36.5 C 69 01/19/25 08:11 36.7 C 127 H 20 01/19/25 07:30 01/19/25 06:50 90 01/19/25 06:41 01/19/25 03:22 36.7 C 86 18 114/74 BP Pulse Ox O2 Del Method O2 Flow Rate 01/19/25 12:30 01/19/25 12:00 01/19/25 11:30 01/19/25 11:06 01/19/25 11:00 01/19/25 10:34 01/19/25 10:24 01/19/25 08:11 107/70 97 Nasal Cannula 13 01/19/25 07:30 High Flow Nasal Cannula 13 01/19/25 06:50 Nasal Cannula 11 01/19/25 06:41 84 L High Flow Nasal Cannula 11 01/19/25 03:22 94 Nasal Cannula 8 Laboratory Results 01/19/25 05:47 01/19/25 05:47 PG Care Time/CCT Total # of Minutes Spent Total Time Spent with Patient: Total time spent is greater than 50% in coordination of care (as documented) at patient's floor/unit and/or counseling patient: Coding Level of Care Code 57335 SUB INP/OBS CARE 2/35MIN Diagnoses Acute on chronic heart failure with preserved ejection fraction I50.33 Acute hypoxic respiratory failure J96.01 CHLOE (acute kidney injury) N17.9 Uremia N19 Prosthetic joint infection T84.50XA Staphylococcus aureus bacteremia R78.81; B95.61 Abscess of sacrum M46.28 Chronic anemia D64.9 Metabolic encephalopathy G93.41
[2025-01-19] MEDS: POLYETHYLENE (MIRALAX) 17 GM PACK PO PRN (21:03)
[2025-01-20 06:27] LABS: Hematocrit (blood only) 27.7 % (42.0-52.0); Hemoglobin 8.7 g/dL (14.0-18.0); Mean Corpuscular Hemoglobin 31.6 pg (25.0-34.0); Mean Corpuscular Volume 100.7 fL (80.0-100.0); Platelet Count 206 K/uL (130-400); RDW Standard Deviation 71.5 fL (36.4-46.3); Red Blood Count 2.75 M/uL (4.70-6.10); White Blood Count 6.81 K/ul (4.8-10.8)
[2025-01-20 06:51] LABS: Anion Gap 7.0 (3-11); Blood Urea Nitrogen 23.0 mg/dl (6-23); Calcium 8.4 mg/dl (8.6-10.3); Carbon Dioxide 26.0 mmol/L (21-32); Chloride 100.0 mmol/L (98-107); Creatinine Clr Calc Pharmacy 35.4 ml/min; Glucose 88.0 mg/dl (70-99(Fasting)); Potassium 4.5 mmol/L (3.5-5.1); Sodium 133.0 mmol/L (136-145)
--- NOTE | 2025-01-20 08:00 | XRay Report ---
EXAM: XR chest 1V portable CLINICAL HISTORY: CHF. TECHNIQUE: X-ray image of the chest obtained in AP projection. COMPARISON: Prior X-ray dated 01/19/2025. FINDINGS: Right central venous catheter with tip at cavoatrial junction (Unchanged). Pulmonary Parenchyma: OBX.5.1OBX.5.1.1 Mild improvement in air space opacities in the right mid /OBX.5.1.1OBX.5.1.2 lower lung zones./OBX.5.1.2/OBX.5.1 OBX.5.1OBX.5.1.1 Unchanged air space opacities in the left mid /OBX.5.1.1OBX.5.1.2 lower lung zones./OBX.5.1.2/OBX.5.1 Still noted obliteration of both costophrenic angles Heart and Mediastinum: OBX.5.1OBX.5.1.1 Mild cardiomegaly /OBX.5.1.1OBX.5.1.2 aortic knob calcifications (Unchanged)./OBX.5.1.2/OBX.5.1 No mediastinal widening or masses. No hilar or mediastinal lymphadenopathy. Bony Thorax: Bony thorax appears intact without fractures or deformities. Degenerative changes of the scanned spine (unchanged). Degenerative changes of both acromioclavicular joints (unchanged). Soft Tissues: EKG leads projected over the chest wall. Otherwise, the soft tissues overlying the chest wall are unremarkable. IMPRESSION: 1. Right central venous catheter with tip at cavoatrial junction (Unchanged). OBX.5.1OBX.5.1.12. Mild improvement in air space opacities in the right mid /OBX.5.1.1OBX.5.1.2 lower lung zones./OBX.5.1.2/OBX.5.1 OBX.5.1OBX.5.1.13. Unchanged air space opacities in the left mid /OBX.5.1.1OBX.5.1.2 lower lung zones and ,bilateral pleural effusion./OBX.5.1.2/OBX.5.1 Electronically signed by Fidel Everett 01-20-2025 08:00 AM
--- NOTE | 2025-01-20 09:12 | Nephrology Progress Note ---
Date of Service January 20, 2025 Assessment & Plan (1) CHLOE (acute kidney injury): Plan: * Oliguric CHLOE. Nephrology evaluation to date has revealed granular casts in the urine suggestive of ATN and low C3 suggestive of infectious glomerulonephritis. Hematuria and pyuria likely a result of indwelling Watson catheter. 01/06/25 renal US revealed atrophic R kidney 7.0 cm, L 11.6 cm. No mass, stone or hydronephrosis. No skin rash suggestive of allergic drug re action * HD completed yesterday for 4L UF without complication. Patient remains on O2 at 11 L/min NC. He appears clinically volume overloaded w/ persistent LE swelling. CXR films reviewed today show only mild improvement in RML/RLL vascular congestion * Continue IV Bumex * Will provide HD today and attempt additional 3-4 L UF. Orders placed in EMR and building supplies salesperson retail HD RN updated * Will provide midodrine 5 mg po prior to each HD treatment for BP support * Monitor daily UO, BMP * Low C3 is concerning for infectious GN. Frailty and anticoagulation preclude renal biopsy. Agree w/ continued antibiotic therapy. Recommend reevaluation by orthopedics and ID to determine whether hip washout is needed and to confirm antibiotic plan (2) Acute respiratory failure with hypoxia: Plan: * 01/20/25 CXR films and report reviewed today. Persistent pulmonary edema despite 4 L UF yesterday. Will dialyze again today for continued UF (3) Staphylococcus aureus bacteremia: Plan: * Remains on Cefazolin dosing for IHD. (4) Chronic anemia: Plan: * Venofer 200 mg IV daily x 5 doses completed 01/13 * Will provide epogen 10,000 units IV w/ HD today (5) Chronic atrial fibrillation: Plan: * Eliquis renally dosed restarted 01/16/25. * Remains on metoprolol for rate control * Now on IV diltiazem q6 hrs. Will hold dose prior to HD today Admission and Anticipated Discharge Date Admission Date: January 06, 2025 Subjective Mr. Fermin was evaluated in his hospital room. He was dialyzed yesterday for 4 L UF without complication. This morning he was in no distress but continues to require O2 at 11L/min NC. He denied angina. Review of Systems Constitutional: no fever Eyes: no problem reported Ear, Nose, Mouth, Throat: no problem reported Respiratory: no cough and no dyspnea Cardiovascular: no chest pain and no palpitations Gastrointestinal: no abdominal pain, no nausea, no vomiting and no diarrhea/loose stools Physical Exam Constitutional: + frail appearing; not in distress Eyes: PERRL, conjunctivae normal, anicteric sclerae ENMT: external ear and nose normal, oropharynx normal Neck: trachea midline, no thyromegaly Respiratory: able to speak in complete sentences; no respiratory distress Auscultation: + rales Cardiovascular: Rate/Rhythm: + tachycardic and + irregularly irregular Extremities: + edema (1+ pretibial pitting edema) Gastrointestinal (Abdomen): normal bowel sounds, soft, nontender, no hepatosplenomegaly Musculoskeletal: Extremities: no cyanosis and no clubbing Skin: no rashes, warm and dry Neurologic: no focal motor deficits Results & Data Vital Signs (Past 12 Hours) Vital Signs Temp Pulse Pulse Pulse Resp BP BP 01/20/25 07:53 36.6 C 105 H 23 111/68 01/20/25 07:19 98 H 18 01/20/25 03:31 36.4 C L 81 21 106/70 01/20/25 00:00 92 H 01/19/25 23:17 36.5 C 96 H 22 127/79 Pulse Ox O2 Del Method O2 Flow Rate 01/20/25 07:53 94 Nasal Cannula 01/20/25 07:19 91 Nasal Cannula 11 01/20/25 03:31 92 High Flow Nasal Cannula 11 01/20/25 00:00 01/19/25 23:17 91 High Flow Nasal Cannula 11 Laboratory Results Laboratory Results - last 24 hr 01/19/25 01/19/25 01/19/25 14:25 16:30 20:40 WBC RBC Hgb Hct MCV MCH MCHC RDW Std Deviation RDW Coeff of Marce Plt Count MPV Sodium Potassium Chloride Carbon Dioxide Anion Gap BUN Creatinine Est Cr Clr Drug Dosing eGFR BUN/Creatinine Ratio Glucose POC Glucose 92 173 H 94 Calcium 01/20/25 01/20/25 05:22 07:34 WBC 6.81 RBC 2.75 L Hgb 8.7 L Hct 27.7 L MCV 100.7 H MCH 31.6 MCHC 31.4 L RDW Std Deviation 71.5 H RDW Coeff of Marce 19.5 H Plt Count 206 MPV 11.2 Sodium 133 L Potassium 4.5 Chloride 100 Carbon Dioxide 26 Anion Gap 7 BUN 23 Creatinine 2.65 H Est Cr Clr Drug Dosing 35.4 eGFR 24.99 BUN/Creatinine Ratio 8.7 L Glucose 88 POC Glucose 91 Calcium 8.4 L Diagnostic Findings Laboratory Results WBC 6.81 K/ul (4.8-10.8) 01/20/25 05:22 RBC 2.75 M/uL (4.70-6.10) L 01/20/25 05:22 Hgb 8.7 g/dL (14.0-18.0) L 01/20/25 05:22 Hct 27.7 % (42.0-52.0) L 01/20/25 05:22 MCV 100.7 fL (80.0-100.0) H 01/20/25 05:22 MCH 31.6 pg (25.0-34.0) 01/20/25 05:22 MCHC 31.4 g/dL (32.0-36.0) L 01/20/25 05:22 RDW Std Deviation 71.5 fL (36.4-46.3) H 01/20/25 05:22 RDW Coeff of Marce 19.5 % (11.5-14.5) H 01/20/25 05:22 Plt Count 206 K/uL (130-400) 01/20/25 05:22 MPV 11.2 fL (9.4-12.4) 01/20/25 05:22 Immature Gran % (Auto) 0.2 % 01/19/25 05:47 Neut % (Auto) 67.9 % 01/19/25 05:47 Lymph % (Auto) 9.0 % 01/19/25 05:47 [place] % (Auto) 16.8 % 01/19/25 05:47 Eos % (Auto) 5.4 % 01/19/25 05:47 Baso % (Auto) 0.7 % 01/19/25 05:47 Neut # (Auto) 3.93 K/uL (1.40-6.50) 01/19/25 05:47 Lymph # (Auto) 0.52 K/uL (1.20-3.40) L 01/19/25 05:47 [place] # (Auto) 0.97 K/uL (0.11-0.59) H 01/19/25 05:47 Eos # (Auto) 0.31 K/uL (0.00-0.50) 01/19/25 05:47 Baso # (Auto) 0.04 K/uL (0.00-0.20) 01/19/25 05:47 Immature Gran # (Auto) 0.01 K/uL (0.01-0.20) 01/19/25 05:47 Absolute Nucleated RBC 0.02 K/uL (0.00-0.12) 01/17/25 06:12 Nucleated RBC % (auto) 0.3 % 01/17/25 06:12 Polychromasia 1+ 01/17/25 06:12 Basophilic Stippling 1+ 01/07/25 08:40 Anisocytosis Present 01/17/25 06:12 Tear Drop Cells 1+ 01/17/25 06:12 Ovalocytes 1+ 01/17/25 06:12 Schistocytes 1+ 01/06/25 11:20 ESR 44 mm/hr (0-20) H 01/07/25 08:40 PT 15.1 Seconds (9.0-12.0) H 01/06/25 11:20 INR 1.5 (0.9-1.1) H 01/06/25 11:20 Heparin Anti-Xa, Unfract 0.37 IU/ml (0.3-0.7) 01/15/25 12:41 VBG pH 7.42 (7.36-7.41) H 01/11/25 19:16 VBG pCO2 49 mmHg (38-50) 01/11/25 19:16 VBG pO2 53 mmHg 01/11/25 19:16 VBG HCO3 32 mmol/L 01/11/25 19:16 VBG O2 Saturation 88.4 % 01/11/25 19:16 VBG Base Excess 6.1 mEq/L 01/11/25 19:16 Sodium 133 mmol/L (136-145) L 01/20/25 05:22 Potassium 4.5 mmol/L (3.5-5.1) 01/20/25 05:22 Chloride 100 mmol/L (98-107) 01/20/25 05:22 Carbon Dioxide 26 mmol/L (21-32) 01/20/25 05:22 Anion Gap 7 (3-11) 01/20/25 05:22 BUN 23 mg/dl (6-23) 01/20/25 05:22 Creatinine 2.65 mg/dl (0.6-1.4) H 01/20/25 05:22 Est Cr Clr Drug Dosing 35.4 ml/min 01/20/25 05:22 eGFR 24.99 01/20/25 05:22 BUN/Creatinine Ratio 8.7 (10-20) L 01/20/25 05:22 Glucose 88 mg/dl (70-99(Fasting)) 01/20/25 05:22 POC Glucose 91 mg/dl (70-99) 01/20/25 07:34 Lactate 0.9 mmol/L (0.4-2.0) 01/08/25 19:31 Uric Acid 7.1 mg/dl (2.6-7.2) 01/07/25 08:40 Calcium 8.4 mg/dl (8.6-10.3) L 01/20/25 05:22 Phosphorus 4.4 mg/dl (2.5-4.9) 01/16/25 06:12 Magnesium 2.2 mg/dl (1.7-2.4) 01/08/25 19:31 Iron 24 mcg/dl (35-175) L 01/07/25 08:40 TIBC 263 mcg/dl (250-450) 01/07/25 08:40 Transferrin 188 mg/dl (200-360) L 01/07/25 08:40 Transferrin % Sat 9 % (20-50) L 01/07/25 08:40 Ferritin 123.6 ng/ml (8-388) 01/07/25 08:40 Total Bilirubin 0.3 mg/dl (0.2-1.0) 01/09/25 05:45 Direct Bilirubin 0.1 mg/dl (0-0.2) 01/06/25 11:20 AST 14 U/L (13-39) 01/08/25 19:31 ALT < 3 U/L (7-52) L 01/08/25 19:31 Alkaline Phosphatase 93 U/L (34-104) 01/08/25 19:31 Ammonia 36.0 umol/L (18-72) 01/11/25 19:16 Lactate Dehydrogenase 165 U/L (86-244) 01/09/25 05:45 Troponin I High Sens 10.9 pg/ml (0-20) 01/06/25 11:20 C-Reactive Protein 2.33 mg/dl (0-0.5) H 01/07/25 08:40 B-Natriuretic Peptide 772 pg/ml (0-100) H 01/08/25 05:34 Total Protein 5.6 gm/dl (6.0-8.3) L 01/09/25 05:45 Total Protein (PEP) 5.6 g/dL (6.1-8.1) L 01/06/25 12:01 Albumin 3.0 gm/dl (3.4-5.0) L 01/16/25 06:12 Albumin (PEP) 2.6 g/dL (3.8-4.8) L 01/06/25 12:01 Globulin 3.3 gm/dl (2.5-4.0) 01/08/25 19:31 Albumin/Globulin Ratio 0.8 (0.9-2) L 01/08/25 19:31 Ebxzo-5-Cpzzhmrfp 0.5 g/dL (0.2-0.3) H 01/06/25 12:01 Qlpvy-0-Znygsvrtq 0.7 g/dL (0.5-0.9) 01/06/25 12:01 Xuwu-3-Wcsctwng 0.3 g/dL (0.4-0.6) L 01/06/25 12:01 Pbne-9-Uedykslo 0.3 g/dL (0.2-0.5) 01/06/25 12:01 Gamma Globulins 1.1 g/dL (0.8-1.7) 01/06/25 12:01 Monoclonal Peak 3 DNR g/dL (NONE DETECTED) 01/06/25 12:01 Ser Monoclonl Protein DNR g/dL (NONE DETECTED) 01/06/25 12:01 Ser Monoclonal Prot 2 DNR g/dL (NONE DETECTED) 01/06/25 12:01 PEP Interpretation SEE NOTE 01/06/25 12:01 Lipase 22 U/L (11-82) 01/06/25 11:20 Vitamin B12 629 pg/ml (180-914) 01/07/25 08:40 Folate 10.61 ng/ml (>5.38) 01/07/25 08:40 Procalcitonin 0.18 ng/ml (0-0.5) 01/08/25 19:31 TSH 5.200 uIu/ml (0.300-4.500) H 01/09/25 11: Free T4 0.89 ng/dl (0.61-1.60) 01/09/25 11:27 Urine Color Yellow 01/06/25 11:32 Urine Appearance Cloudy (Clear) A 01/06/25 11:32 Urine pH 5.0 (4.5-7.5) 01/06/25 11:32 Ur Specific [place] 1.012 (1.000-1.030) 01/06/25 11:32 Urine Protein 2+ (Negative) H 01/06/25 11:32 Urine Glucose (UA) Negative (Negative) 01/06/25 11:32 Urine Ketones Negative (Negative) 01/06/25 11:32 Urine Blood 3+ (Negative) H 01/06/25 11:32 Urine Nitrite Negative (Negative) 01/06/25 11:32 Urine Bilirubin Negative (Negative) 01/06/25 11:32 Urine Urobilinogen Negative (Negative) 01/06/25 11:32 Ur Leukocyte Esterase 2+ (Negative) H 01/06/25 11:32 Urine WBC (Auto) >50 /hpf (0-5) H 01/12/25 12:55 Urine RBC (Auto) >20 /hpf (0-2) H 01/12/25 12:55 U Hyaline Cast (Auto) >20 /lpf (0-2) H 01/12/25 12:55 U Epithel Cells (Auto) 6-10 /hpf (0-2) H 01/12/25 12:55 Urine Bacteria (Auto) None Seen (None Seen) 01/12/25 12:55 Amorphous Sediment Present (None Prsent) A 01/12/25 12:55 Granular Casts Present /lpf (None Prsent) A 01/12/25 12:55 Ur Random Creatinine 18.5 mg/dl 01/06/25 16:00 U Random Total Protein 226 mg/dL (5-25) H 01/07/25 13:00 Ur Random Sodium 89 mmol/L 01/06/25 16:00 Ur Creatinine mg/dL 91 mg/dL (20-320) 01/07/25 13:00 Protein/Creatinin Ratio 2.484 (0.025-0.148) H 01/07/25 13:00 Urine Albumin (%) 44 % 01/07/25 13:00 U Kgyta-8-Twvlwldc (%) 8 % 01/07/25 13:00 U Nibyt-3-Lddictyw (%) 13 % 01/07/25 13:00 U Beta Globulin (%) 12 % 01/07/25 13:00 U Gamma Globulin (%) 23 % 01/07/25 13:00 U Abnormal Prot Band 1 DNR mg/dL (NONE DETECTED) 01/07/25 13:00 U Abnormal Prot Band 2 DNR mg/dL (NONE DETECTED) 01/07/25 13:00 U Abnormal Prot Band 3 DNR mg/dL (NONE DETECTED) 01/07/25 13:00 Urine PEP Interpret SEE NOTE 01/07/25 13:00 Urine Comment 01/06/25 11:32 Fluid Neutrophils % 18 % 01/09/25 10:50 Fluid Lymphocytes % 15 % 01/09/25 10:50 Fluid Basophils % 1 % 01/09/25 10:50 Fluid [place] % 66 % 01/09/25 10:50 Fluid Comment 01/09/25 10:50 Pleural Fluid Source Right Lung 01/09/25 10:50 Pleural Color Pale Yellow 01/09/25 10:50 Pleural Appearance Hazy 01/09/25 10:50 Pleural pH 7.53 (7.3-7.4) H 01/09/25 10:50 Pleural WBC (Auto) 372 /uL 01/09/25 10:50 Pleural RBC (Auto) < 2000 /uL 01/09/25 10:50 Pleural Total Protein < 3.0 gm/dl 01/09/25 10:50 Pleural LDH 61 U/L 01/09/25 10:50 Pleural Glucose 104 mg/dl 01/09/25 10:50 Pleural Amylase 25 U/L 01/09/25 10:50 Nasal Screen MRSA (PCR) Negative (Negative) 01/06/25 15:50 Complement C3 15 mg/dL (82-185) L 01/13/25 09:41 Complement C4 20 mg/dL (15-53) 01/13/25 09:41 Tot Complement (CH50) 18 U/mL (31-60) L 01/13/25 09:41 Hep Bs Antigen Negative (Negative) 01/12/25 12:01 Hep Bs Antibody Non-Immune 01/12/25 12:01 Hep Bs Antibody, Quant < 3.00 mIU/mL (>or=10mIU/mL Immune) 01/12/25 12:01 Hep B Core IgM Ab NON-REACTIVE (NON-REACTIVE) 01/12/25 12:01 Impressions Renal Ultrasound 01/06/25 13:39 Exam: Retroperitoneal ultrasound. History: Acute kidney insufficiency. Comparison: December 23, 2024. Findings: Right kidney measures 7.0 x 11.8 x 6.3 cm. No stone, mass or hydronephrosis. At least mild cortical volume loss. Left kidney measures 11.6 x 6.8 x 5.8 cm. This contains a hypoechoic through transmitting 2.1 x 2.0 x 3.1 cm nodule. This does not demonstrate color flow. No solid mass, stone or hydronephrosis. Mild cortical volume loss. Urinary bladder not evaluated on this exam. Technologist reports Watson catheter in place. Impression: Mild bilateral cortical volume loss with benign left renal cyst. Otherwise no findings to suggest source for patient's symptoms. Electronically signed by Ronnie Isaacs 01-06-2025 2:36 PM Thoracentesis/Paracentesis US 01/09/25 12:06 IR thoracentesis wo tube US CLINICAL HISTORY: Right-sided pleural effusion COMPARISON STUDY: 01/06/2025 and 12/22/2024 Technique: After the procedure was discussed and questions answered, consent was obtained. Patient was positioned seated upright. Preprocedure ultrasound demonstrates right pleural effusion. The right back was prepped and draped in standard sterile fashion. 1% lidocaine was used for local anesthesia. Under ultrasound guidance, a thoracentesis catheter was advanced to the right pleural effusion from a posterior lower intercostal approach. 800 cc of straw-colored fluid was withdrawn. Catheter was removed. Hemostasis was obtained with manual compression. Sterile dressing was applied. Postprocedure chest x-ray shows no pneumothorax. IMPRESSION: Right thoracentesis. ACT 112: Negative or not required by law. Electronically signed by: Trevor Arteaga M.D. 01/09/2025 11:20 AM Chest X-Ray 01/20/25 06:00 EXAM: XR chest 1V portable CLINICAL HISTORY: CHF. TECHNIQUE: X-ray image of the chest obtained in AP projection. COMPARISON: Prior X-ray dated 01/19/2025. FINDINGS: Right central venous catheter with tip at cavoatrial junction (Unchanged). Pulmonary Parenchyma: OBX.5.1OBX.5.1.1 Mild improvement in air space opacities in the right mid /OBX.5.1.1OBX.5.1.2 lower lung zones./OBX.5.1.2/OBX.5.1 OBX.5.1OBX.5.1.1 Unchanged air space opacities in the left mid /OBX.5.1.1OBX.5.1.2 lower lung zones./OBX.5.1.2/OBX.5.1 Still noted obliteration of both costophrenic angles Heart and Mediastinum: OBX.5.1OBX.5.1.1 Mild cardiomegaly /OBX.5.1.1OBX.5.1.2 aortic knob calcifications (Unchanged)./OBX.5.1.2/OBX.5.1 No mediastinal widening or masses. No hilar or mediastinal lymphadenopathy. Bony Thorax: Bony thorax appears intact without fractures or deformities. Degenerative changes of the scanned spine (unchanged). Degenerative changes of both acromioclavicular joints (unchanged). Soft Tissues: EKG leads projected over the chest wall. Otherwise, the soft tissues overlying the chest wall are unremarkable. IMPRESSION: 1. Right central venous catheter with tip at cavoatrial junction (Unchanged). OBX.5.1OBX.5.1.12. Mild improvement in air space opacities in the right mid /OBX.5.1.1OBX.5.1.2 lower lung zones./OBX.5.1.2/OBX.5.1 OBX.5.1OBX.5.1.13. Unchanged air space opacities in the left mid /OBX.5.1.1OBX.5.1.2 lower lung zones and ,bilateral pleural effusion./OBX.5.1.2/OBX.5.1 Electronically signed by Fidel Everett 01-20-2025 08:00 AM PG Care Time/CCT Total # of Minutes Spent Total Time Spent with Patient: 50 minutes provided to review progress notes/laboratory results/CXR films & report/ID recommendations/telemetry over last 24 hours, interview and examine patient, contact HD on-call RN and enter orders into EMR, order am labs, discuss POC with patient, update medical record Coding Level of Care Code 14107 SUB INP/OBS CARE 3/50MIN Diagnoses CHLOE (acute kidney injury) N17.9 Acute respiratory failure with hypoxia J96.01 Staphylococcus aureus bacteremia R78.81; B95.61 Chronic anemia D64.9 Chronic atrial fibrillation I48.20
[2025-01-20] MEDS ORDERED: SODIUM CHLORIDE 0.9% 1,000 ML IV PRN (09:35)
[2025-01-20] MEDS: MIDODRINE HCL 2.5 MG TAB PO STA (09:54)
[2025-01-20] MEDS: EPOETIN ALFA 10,000 UNITS/ML VIAL IV ONE (13:43)
--- NOTE | 2025-01-20 15:02 | Hospitalist Progress Note ---
Date of Service January 20, 2025 Assessment & Plan (1) Acute on chronic heart failure with preserved ejection fraction: Plan: He is not making much urine but remains on intravenous Bumex. Most recent chest x-ray on January 19 continue to show changes consistent with congestive heart failure. Monitor intake and output. Serial chest x-ray (2) Acute hypoxic respiratory failure: Plan: Currently requiring high flow oxygen. As CHF resolves, hopefully the oxygen requirement can be weaned down. (3) CHLOE (acute kidney injury): Plan: The patient has acute renal failure and is receiving hemodialysis at this time. Nephrology consultation and recommendations appreciated. He now has a tunneled dialysis catheter in place. (4) Uremia: Plan: Due to acute renal failure. Serial labs. 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 (6) Staphylococcus aureus bacteremia: Plan: Currently on intravenous Ancef (7) Abscess of sacrum: Plan: Status post incision and drainage with sacral cyst removal. Postoperative day #11. Continue wound care assessments and wound VAC (8) Chronic anemia: Plan: Serial labs. Transfuse as needed (9) Metabolic encephalopathy: Plan: Present on admission. Now resolved Plan Hopeful eventual return to [facility]PR Admission and Anticipated Discharge Date Admission Date: January 06, 2025 Subjective Alert and oriented. No acute distress. The patient was seen while in hemodialysis today, December 20. He remains on high flow oxygen. This should eventually improve. Glucose 88 this morning off Lantus. He remains on intravenous Ancef for the sacral abscess that was surgically debrided this admission. His tunneled dialysis catheter was placed on January 16. It seems to be working fine right now Review of Systems 2 Review of Systems: Constitutionalno fever or chills ENTno blurred vision, no double vision, no epistaxis, no sore throat Respiratoryno cough, no wheezing, no shortness of breath at rest Cardiacno palpitations, no chest pain, no syncope Bakari nausea, vomiting, diarrhea, melena, hematochezia GUno urinary retention, no urinary incontinence, no dysuria, no hematuria Musculoskeletalno joint pain, no muscle tenderness Skinno bruising, no rashes, no pruritus. Chronic lower extremity edema bilaterally Neurono isolated weakness, no paresthesia, no weakness Psychno depression, no anxiety Physical Exam 2 Physical Exam: General-alert and oriented x3, no fever, no chills HEENT-head atraumatic and normocephalic, pupils equal and reactive to light, extraocular muscles intact Neck-no lymphadenopathy or thyromegaly, trachea midline Chest-clear to auscultation. No rales, wheezing or rhonchi Cardiac-regular rate and rhythm, normal S1 and S2 Abdomen-normal bowel sounds, no hepatosplenomegaly Extremities-chronic appearing bilateral lower extremity edema with chronic venous stasis changes Neuro-cranial nerves II through XII intact, motor and sensory function within normal limits, strength symmetrical, no focal deficits Psych-normal affect, normal mood Results & Data Results & Data Vital Signs (Past 12 Hours) Vital Signs Temp Pulse Pulse Pulse Resp BP BP 01/20/25 14:48 114 H 18 01/20/25 14:19 36.5 C 99 H 22 01/20/25 13:55 36.5 C 96 H 117/89 01/20/25 13:53 86 01/20/25 13:30 83 119/86 01/20/25 13:00 78 128/88 01/20/25 12:30 77 121/88 01/20/25 12:00 77 114/77 01/20/25 11:30 77 135/85 01/20/25 11:00 73 125/92 01/20/25 10:30 89 129/88 01/20/25 10:16 79 131/86 01/20/25 10:10 36.5 C 95 H 01/20/25 08:23 78 01/20/25 08:23 01/20/25 07:53 36.6 C 105 H 23 01/20/25 07:19 98 H 18 01/20/25 03:31 36.4 C L 81 21 BP Pulse Ox O2 Del Method O2 Flow Rate 01/20/25 14:48 96 Nasal Cannula 9 01/20/25 14:19 126/55 L 96 Nasal Cannula 9 01/20/25 13:55 01/20/25 13:53 01/20/25 13:30 01/20/25 13:00 01/20/25 12:30 01/20/25 12:00 01/20/25 11:30 01/20/25 11:00 01/20/25 10:30 01/20/25 10:16 01/20/25 10:10 01/20/25 08:23 01/20/25 08:23 Nasal Cannula 12 01/20/25 07:53 111/68 94 Nasal Cannula 11 01/20/25 07:19 91 Nasal Cannula 11 01/20/25 03:31 106/70 92 High Flow Nasal Cannula 11 Laboratory Results 01/20/25 05:22 01/20/25 05:22 PG Care Time/CCT Total # of Minutes Spent Total Time Spent with Patient: Total time spent is greater than 50% in coordination of care (as documented) at patient's floor/unit and/or counseling patient: Coding Level of Care Code 58803 SUB INP/OBS CARE 2/35MIN Diagnoses Acute on chronic heart failure with preserved ejection fraction I50.33 Acute hypoxic respiratory failure J96.01 CHLOE (acute kidney injury) N17.9 Uremia N19 Prosthetic joint infection T84.50XA Staphylococcus aureus bacteremia R78.81; B95.61 Abscess of sacrum M46.28 Chronic anemia D64.9 Metabolic encephalopathy G93.41
[2025-01-21 06:32] LABS: Hematocrit (blood only) 25.8 % (42.0-52.0); Hemoglobin 8.2 g/dL (14.0-18.0); Mean Corpuscular Hemoglobin 32.0 pg (25.0-34.0); Mean Corpuscular Volume 100.8 fL (80.0-100.0); Platelet Count 201 K/uL (130-400); RDW Standard Deviation 71.3 fL (36.4-46.3); Red Blood Count 2.56 M/uL (4.70-6.10); White Blood Count 6.01 K/ul (4.8-10.8)
[2025-01-21 06:57] LABS: Anion Gap 5.0 (3-11); Blood Urea Nitrogen 22.0 mg/dl (6-23); Calcium 8.3 mg/dl (8.6-10.3); Carbon Dioxide 26.0 mmol/L (21-32); Chloride 102.0 mmol/L (98-107); Creatinine Clr Calc Pharmacy 36.0 ml/min; Glucose 88.0 mg/dl (70-99(Fasting)); Potassium 4.7 mmol/L (3.5-5.1); Sodium 133.0 mmol/L (136-145)
--- NOTE | 2025-01-21 08:54 | Nephrology Progress Note ---
Date of Service January 21, 2025 Assessment & Plan (1) CHLOE (acute kidney injury): Plan: * Oliguric CHLOE. Nephrology evaluation to date has revealed granular casts in the urine suggestive of ATN and low C3 suggestive of infectious glomerulonephritis. Hematuria and pyuria likely a result of indwelling Watson catheter. 01/06/25 renal US revealed atrophic R kidney 7.0 cm, L 11.6 cm. No mass, stone or hydronephrosis. No skin rash suggestive of allergic drug renuka ction * HD completed yesterday for 4L UF without complication. Patient remains on O2 at 8 L/min NC. He appears clinically volume overloaded w/ persistent LE swelling and weeping * Continue IV Bumex * Will provide HD today and attempt additional 3-4 L UF. Orders placed in EMR and [employer] regional sales manager HD RN updated * Will provide midodrine 5 mg po prior to each HD treatment for BP support * Monitor daily UO, BMP * Low C3 is concerning for infectious GN. Frailty and anticoagulation preclude renal biopsy. Agree w/ continued antibiotic therapy. Recommend reevaluation by orthopedics and ID to determine whether hip washout is needed and to confirm antibiotic plan (2) Acute respiratory failure with hypoxia: Plan: * 01/20/25 CXR films w/ persistent CHF (3) Staphylococcus aureus bacteremia: Plan: * Remains on Cefazolin dosing for IHD. (4) Chronic anemia: Plan: * Venofer 200 mg IV daily x 5 doses completed 01/13 * Will provide epogen 10,000 units IV w/ HD today (5) Chronic atrial fibrillation: Plan: * Eliquis renally dosed restarted 01/16/25. * Remains on metoprolol for rate control * Now on IV diltiazem q6 hrs. Will hold dose prior to HD today Admission and Anticipated Discharge Date Admission Date: January 06, 2025 Subjective Mr. Fermin was evaluated in his hospital room. He was dialyzed yesterday for 4 L UF without complication. This morning he was in no distress but continues to require O2 at 8L/min NC. He now c/o tense LE edema w/ weeping Review of Systems Constitutional: no fever Eyes: no problem reported Ear, Nose, Mouth, Throat: no problem reported Respiratory: no cough and no dyspnea Cardiovascular: no chest pain and no palpitations Gastrointestinal: no abdominal pain, no nausea, no vomiting and no diarrhea/loose stools Physical Exam Constitutional: + frail appearing; not in distress Eyes: PERRL, conjunctivae normal, anicteric sclerae ENMT: external ear and nose normal, oropharynx normal Neck: trachea midline, no thyromegaly Respiratory: able to speak in complete sentences; no respiratory distress Auscultation: + rales Cardiovascular: Rate/Rhythm: + tachycardic and + irregularly irregular Extremities: + edema (tense pretibial edema w/ weeping lesions) Gastrointestinal (Abdomen): normal bowel sounds, soft, nontender, no hepatosplenomegaly Musculoskeletal: Extremities: no cyanosis and no clubbing Skin: no rashes, warm and dry Neurologic: no focal motor deficits Results & Data Vital Signs (Past 12 Hours) Vital Signs Temp Pulse Pulse Pulse Resp BP BP 01/21/25 07:12 74 18 01/21/25 07:08 36.7 C 88 18 104/68 01/21/25 03:47 36.6 C 92 H 20 112/67 01/20/25 22:10 95 H Pulse Ox O2 Del Method O2 Flow Rate 01/21/25 07:12 97 CPAP 8 01/21/25 07:08 94 CPAP 01/21/25 03:47 99 CPAP 01/20/25 22:10 Laboratory Results Laboratory Results - last 24 hr 01/20/25 01/20/25 01/20/25 14:28 16:23 20:15 WBC RBC Hgb Hct MCV MCH MCHC RDW Std Deviation RDW Coeff of Marce Plt Count MPV Sodium Potassium Chloride Carbon Dioxide Anion Gap BUN Creatinine Est Cr Clr Drug Dosing eGFR BUN/Creatinine Ratio Glucose POC Glucose 91 196 H 151 H Calcium 01/21/25 01/21/25 05:50 07:13 WBC 6.01 RBC 2.56 L Hgb 8.2 L Hct 25.8 L MCV 100.8 H MCH 32.0 MCHC 31.8 L RDW Std Deviation 71.3 H RDW Coeff of Marce 19.3 H Plt Count 201 MPV 11.2 Sodium 133 L Potassium 4.7 Chloride 102 Carbon Dioxide 26 Anion Gap 5 BUN 22 Creatinine 2.61 H Est Cr Clr Drug Dosing 36.0 eGFR 25.45 BUN/Creatinine Ratio 8.4 L Glucose 88 POC Glucose 91 Calcium 8.3 L PG Care Time/CCT Total # of Minutes Spent Total Time Spent with Patient: 50 minutes provided to review progress notes/laboratory results/CXR/telemetry over last 24 hours, interview and examine patient, contact HD on-call RN and enter orders into EMR, order am labs, discuss POC with patient, update medical record Coding Level of Care Code 96375 SUB INP/OBS CARE 3/50MIN Diagnoses CHLOE (acute kidney injury) N17.9 Acute respiratory failure with hypoxia J96.01 Staphylococcus aureus bacteremia R78.81; B95.61 Chronic anemia D64.9 Chronic atrial fibrillation I48.20
[2025-01-21] MEDS ORDERED: SODIUM CHLORIDE 0.9% 1,000 ML IV PRN (08:55)
[2025-01-21] MEDS: MIDODRINE HCL 2.5 MG TAB PO ONE (13:11)
--- NOTE | 2025-01-21 16:23 | Hospitalist Progress Note ---
Date of Service January 21, 2025 Assessment & Plan (1) Acute on chronic heart failure with preserved ejection fraction: (2) Acute hypoxic respiratory failure: (3) CHLOE (acute kidney injury): (4) Uremia: (5) Prosthetic joint infection: (6) Staphylococcus aureus bacteremia: (7) Abscess of sacrum: (8) Chronic anemia: (9) Metabolic encephalopathy: Plan 69yo male with recent hospitalization for MSSA bacteremia (12/05 to 12/25) 2nd to infected right hip prosthesis. Presented from [facility] rehab due to leg swelling, hypoxia and shortness of breath. #CHLOE, hypervolemia due to renal failure Remains significantly hypervolemic despite hemodialysis although third spacing also limited by hypoproteinemia Suspected secondary to ATN most likely but cannot exclude underlying GN (recent complement levels low) or interstitial nephritis -baseline Cr ~1.4 to 1.5 -hospital d/c on 12/25/24 -- Cr was 2 -upon presentation 01/06/25 his Cr was 2.65 -Cr remained >3 with very high BUN levels and uremic symptoms throughout this stay -despite supportive care there was no improvement in UOP or his BUN/Cr -temporary HD catheter placed 01/12/25 started hemodialysis at that time -uncertain if HD will be needed just short-term vs long-term; hoping for renal recovery, but right now no signs to date of such -permacath placement 01/16 by vascular surgery -Appreciate ongoing nephrology management with dialysis, 4L being taken off daily #Acute metabolic encephalopathy - IMPROVED s/p serial HD sessions resolved #Acute on chronic heart failure with preserved ejection fraction with resulting acute hypoxic/hypercapnic respiratory failure -mostly hypervolemia due to renal failure with proteinuria, cont HD for volume control -Aim O2 sats > 90% BiPAP HS #Right-sided pleural effusion -s/p thoracentesis with 800ml removed -transudative fluid, however culture grew staph haemolyticus -Pulmonology suspect this is likely contaminant as the original cell counts and Light's Criteria pointed towards transudative fluid rather than exudative -he is already on IV ancef which would cover this organism anyway #Left lower extremity ulcer on raza -local wound care with Aquacel Ag + Optifoam dressing -a wound cx was taken from this region showing multiple pathogens, but still no suspicion of infection or cellulitis based on clinical exam of this ulcer -cont to monitor the wound -appreciate wound care assistance #Sacral abscess - sebaceous cyst -s/p I & D and removal of the cyst by Dr Nesbitt 01/08 -woundvac in place; cont exchanges by wound care #Staph aureus bacteremia -dx last admission in November 2024 -source - infected right THR -due to medical complexity and other factors, orthopedics recommended no explantation of right hip hardware or I/D procedure -continue cefazolin renally dosed with last date 01/28/25 -then cefadroxil for chronic oral suppression -RUE PICC line in place remains #BPH with urinary retention -prior admission wolfe catheter removed prior to discharge -patient reported it was placed back while rehabbing at [facility] -continue tamsulosin -cont wolfe #Nondisplaced right femoral periprosthetic intertrochanteric fracture - -Diagnosed last admission -no surgical Rx needed -WBAT when working with PT/OT #Chronic anemia - -cont to trend CBC -s/p IV venofer x 5 doses #Toe ulcers - -cont local wound care #Chronic atrial fibrillation/hypertension - -Switched to Eliquis -cont metoprolol 75mg BID - continue diltiazem IR 30mg q6h - restarted after dialysis started for better rate control #COPD - -no exacerbation at this time -Duonebs PRN -Continue Trelegy #Type 2 Diabetes mellitus - -Stopped Jardiance due to CHLOE last admission -HbA1C 6.7% -continue NovoLog SSI #Hyperlipidemia - -Continue atorvastatin #Chronic gout - -allopurinol held at [facility], uric acid 7.1 -resumed at lower dose/renal dosing (50mg q48h) #AISHA - -cont home BIPAP HS and naps -blend O2 into the BIPAP as needed VTE Prophylaxis - Eliquis Disposition - continued admission to PCU Admission and Anticipated Discharge Date Admission Date: January 06, 2025 Subjective Patient feels improved since starting dialysis although notes his legs are still tight and weeping and on 10LPM O2. Physical Exam Constitutional: well developed; + not well nourished and no acute distress Eyes: + anicteric sclerae ENMT: external ear and nose normal, oropharynx normal Mouth: oral mucous membranes not dry Respiratory: normal respiratory effort; no respiratory distress and no stridor Auscultation: lungs clear to auscultation bilaterally, + breath sounds absent (bibasal) and + crackles (posteriorly) Cardiovascular: Rate/Rhythm: regular rate and + irregularly irregular Extremities: + pedal edema (3+ pitting to thigh) Gastrointestinal (Abdomen): Inspection/Auscultation: abdomen not distended Percussion/Palpation: abdomen soft; abdomen nontender, no guarding and abdomen not rigid Neurologic: Motor/Sensory: no tremor and no asterixis Psychiatric: Orientation: alert and oriented x 3 Results & Data Results & Data Vital Signs (Past 12 Hours) Vital Signs Temp Pulse Pulse Pulse Resp BP BP 01/21/25 14:01 67 125/83 01/21/25 13:53 36.8 C 80 01/21/25 11:05 36.8 C 73 16 104/73 01/21/25 11:03 70 18 01/21/25 07:30 01/21/25 07:12 74 18 01/21/25 07:08 36.7 C 88 18 104/68 Pulse Ox O2 Del Method O2 Flow Rate 01/21/25 14:01 01/21/25 13:53 01/21/25 11:05 96 High Flow Nasal Cannula 10 01/21/25 11:03 87 L Nasal Cannula 7 01/21/25 07:30 Nasal Cannula 8 01/21/25 07:12 97 CPAP 8 01/21/25 07:08 94 CPAP PG Care Time/CCT Total # of Minutes Spent Total Time Spent with Patient: Total time spent is greater than 50% in coordination of care (as documented) at patient's floor/unit and/or counseling patient: Coding Level of Care Code 24824 SUB INP/OBS CARE 2/35MIN Diagnoses Acute on chronic heart failure with preserved ejection fraction I50.33 Acute hypoxic respiratory failure J96.01 CHLOE (acute kidney injury) N17.9 Uremia N19 Prosthetic joint infection T84.50XA Staphylococcus aureus bacteremia R78.81; B95.61 Abscess of sacrum M46.28 Chronic anemia D64.9 Metabolic encephalopathy G93.41
[2025-01-21] MEDS: EPOETIN ALFA 10,000 UNITS/ML VIAL IV ONE (17:17)
[2025-01-22 06:47] LABS: Hematocrit (blood only) 27.3 % (42.0-52.0); Hemoglobin 8.5 g/dL (14.0-18.0); Mean Corpuscular Hemoglobin 31.6 pg (25.0-34.0); Mean Corpuscular Volume 101.5 fL (80.0-100.0); Platelet Count 217 K/uL (130-400); RDW Standard Deviation 72.2 fL (36.4-46.3); Red Blood Count 2.69 M/uL (4.70-6.10); White Blood Count 5.02 K/ul (4.8-10.8)
[2025-01-22 07:16] LABS: Anion Gap 5.0 (3-11); Blood Urea Nitrogen 16.0 mg/dl (6-23); Calcium 8.4 mg/dl (8.6-10.3); Carbon Dioxide 27.0 mmol/L (21-32); Chloride 103.0 mmol/L (98-107); Creatinine Clr Calc Pharmacy 38.5 ml/min; Glucose 84.0 mg/dl (70-99(Fasting)); Iron 40.0 mcg/dl (35-175); Potassium 4.3 mmol/L (3.5-5.1); Sodium 135.0 mmol/L (136-145); Total Iron Binding Cap Calc 283.0 mcg/dl (250-450); Transferrin 202.0 mg/dl (200-360); Transferrin (FE) Percent Satur 14.0 % (20-50)
[2025-01-22 07:36] LABS: Ferritin 152.4 ng/ml (8-388)
--- NOTE | 2025-01-22 09:10 | Nephrology Progress Note ---
Date of Service January 22, 2025 Assessment & Plan (1) CHLOE (acute kidney injury): Plan: * Oliguric CHLOE. Nephrology evaluation to date has revealed granular casts in the urine suggestive of ATN and low C3 suggestive of infectious glomerulonephritis. Hematuria and pyuria likely a result of indwelling Watson catheter. 01/06/25 renal US revealed atrophic R kidney 7.0 cm, L 11.6 cm. No mass, stone or hydronephrosis. No skin rash suggestive of allergic drug renuka ction * HD completed yesterday for 4L UF without complication. Patient remains on O2 at 10 L/min NC. He appears clinically volume overloaded w/ persistent LE swelling and weeping * Continue IV Bumex * Will provide HD today and attempt additional 3-4 L UF. Orders placed in EMR and juvenile corrections officer HD RN updated * Will provide midodrine 5 mg po prior to each HD treatment for BP support * Monitor daily UO, BMP * Low C3 is concerning for infectious GN. Frailty and anticoagulation preclude renal biopsy. Agree w/ continued antibiotic therapy. Recommend reevaluation by orthopedics and ID to determine whether hip washout is needed and to confirm antibiotic plan * Will assist w/ discharge planning and consult case management to set up outpatient HD (2) Acute respiratory failure with hypoxia: Plan: * 01/20/25 CXR films w/ persistent CHF (3) Staphylococcus aureus bacteremia: Plan: * Remains on Cefazolin dosing for IHD. (4) Chronic anemia: Plan: * Hgb 10.5 * Will provide epogen 10,000 units IV w/ HD today * 01/22/25 iron sat 14%, ferritin 152 * Will administer venofer 200 mg IV w/ HD today (5) Chronic atrial fibrillation: Plan: * Eliquis renally dosed restarted 01/16/25. * Remains on metoprolol for rate control * Now on IV diltiazem q6 hrs. Will hold dose prior to HD today Admission and Anticipated Discharge Date Admission Date: January 06, 2025 Subjective Mr. Fermin was evaluated in his hospital room. He was dialyzed yesterday for 4 L UF without complication. This morning he was in no distress but continues to require O2 at 10L/min NC. He continues to display tense LE edema w/ weeping fluid Review of Systems Constitutional: no fever Eyes: no problem reported Ear, Nose, Mouth, Throat: no problem reported Respiratory: no cough and no dyspnea Cardiovascular: no chest pain and no palpitations Gastrointestinal: no abdominal pain, no nausea, no vomiting and no diarrhea/loose stools Physical Exam Constitutional: + frail appearing; not in distress Eyes: PERRL, conjunctivae normal, anicteric sclerae ENMT: external ear and nose normal, oropharynx normal Neck: trachea midline, no thyromegaly Respiratory: able to speak in complete sentences; no respiratory distress Auscultation: + rales Cardiovascular: Rate/Rhythm: + tachycardic and + irregularly irregular Extremities: + edema (tense pretibial edema w/ weeping lesions) Gastrointestinal (Abdomen): normal bowel sounds, soft, nontender, no hepatosplenomegaly Musculoskeletal: Extremities: no cyanosis and no clubbing Skin: no rashes, warm and dry Neurologic: no focal motor deficits Results & Data Vital Signs (Past 12 Hours) Vital Signs Temp Pulse Pulse Pulse Resp BP Pulse Ox 01/22/25 07:24 108 H 18 93 01/22/25 07:17 36.4 C L 98 H 20 117/78 92 01/22/25 03:51 36.5 C 78 20 119/80 100 01/21/25 23:30 100 H 01/21/25 23:23 01/21/25 23:00 36.5 C 97 H 21 107/72 97 O2 Del Method O2 Flow Rate 01/22/25 07:24 Nasal Cannula 10 01/22/25 07:17 High Flow Nasal Cannula 10 01/22/25 03:51 CPAP 10 01/21/25 23:30 01/21/25 23:23 Nasal Cannula 8 01/21/25 23:00 High Flow Nasal Cannula 10 Laboratory Results Laboratory Results - last 24 hr 01/21/25 01/21/25 01/21/25 11:08 18:05 20:49 WBC RBC Hgb Hct MCV MCH MCHC RDW Std Deviation RDW Coeff of Marce Plt Count MPV Sodium Potassium Chloride Carbon Dioxide Anion Gap BUN Creatinine Est Cr Clr Drug Dosing eGFR BUN/Creatinine Ratio Glucose POC Glucose 76 102 H 155 H Calcium Iron TIBC Transferrin Transferrin % Sat Ferritin 01/22/25 01/22/25 06:25 07:17 WBC 5.02 RBC 2.69 L Hgb 8.5 L Hct 27.3 L MCV 101.5 H MCH 31.6 MCHC 31.1 L RDW Std Deviation 72.2 H RDW Coeff of Marce 19.4 H Plt Count 217 MPV 11.0 Sodium 135 L Potassium 4.3 Chloride 103 Carbon Dioxide 27 Anion Gap 5 BUN 16 Creatinine 2.35 H Est Cr Clr Drug Dosing 38.5 eGFR 28.86 BUN/Creatinine Ratio 6.8 L Glucose 84 POC Glucose 80 Calcium 8.4 L Iron 40 TIBC 283 Transferrin 202 Transferrin % Sat 14 L Ferritin 152.4 PG Care Time/CCT Total # of Minutes Spent Total Time Spent with Patient: 50 minutes provided to review progress notes, laboratory results, telemetry over last 24 hours, interview and examine patient, contact HD on-call RN and enter orders into EMR, order epogen and venofer, order am labs, discuss POC with patient, consult case management, update medical record Coding Level of Care Code 60832 SUB INP/OBS CARE 3/50MIN Diagnoses CHLOE (acute kidney injury) N17.9 Acute respiratory failure with hypoxia J96.01 Staphylococcus aureus bacteremia R78.81; B95.61 Chronic anemia D64.9 Chronic atrial fibrillation I48.20
[2025-01-22] MEDS ORDERED: SODIUM CHLORIDE 0.9% 1,000 ML IV PRN (09:41)
[2025-01-22] MEDS: MIDODRINE HCL 2.5 MG TAB PO ONE (10:20)
[2025-01-22] MEDS: EPOETIN ALFA 10,000 UNITS/ML VIAL IV ONE (11:47)
[2025-01-22] MEDS: IRON SUCROSE 200 MG in SYRINGE 0 ML IV SCH (11:48)
[2025-01-22] MEDS ORDERED: ALBUT/IPRATROP 3MG/0.5MG NEB 3 ML VIAL NEB PRN (13:03)
--- NOTE | 2025-01-22 13:51 | Orthopedic Consultation ---
Date of Service January 22, 2025 Assessment & Plan (1) Periprosthetic fracture around internal prosthetic right hip joint: 69-year-old gentleman with multiple medical comorbidities with a right periprosthetic hip joint infection which is clearly minimal and subacute and likely somewhat chronic. He is doing much better clinically. Exam is pretty benign. His pain is much better controlled. He has been getting IV antibiotics. We have been consulted about need for possible surgical intervention. I would recommend against this. I would recommend continued of suppressive antibiotics with a total of 6 weeks of IV followed by p.o. antibiotics for life. I think any surgery to remove these implants which would be what it would take to cure his infection would likely be fatal to him. You are certainly welcome to a get another opinion from another orthopedist or another institution but that that is my feelings fairly confidently and firmly. I do not think his infection is what is leading Nestl to his kidney failure although does not Nestl along my areas of expertise. Any orthopedic questions can be directed me [phone]. (2) Hx of total knee replacement: History of Present Illness Reason for Consultation: . Right periprosthetic hip infection Requesting Physician: . Attending Physician: Indio Carvalho MD . Patient is a 69-year-old gentleman with multiple medical comorbidities who underwent a right total hip replacement many years ago. Over the past year or so he is developed pain and discomfort in the hip and eventually has been diagnosed with a periprosthetic infection. He did have an aspiration which revealed methicillin-sensitive staph. He has been on antibiotics. Has been in the hospital several times for multiple issues most recently kidney failure on dialysis treatment. His hip pains gotten markedly better since he started on the antibiotics. He has been placed on 6 weeks of IV antibiotics followed by p.o. antibiotics. He reports fairly minimal hip pain. Allergies Allergy/AdvReac Type Severity Reaction Status Date / Time dicyclomine [From Bentyl] Allergy Unknown CAN'T Verified 01/06/25 14:54 REMEMBER Home Medications Medication Instructions Recorded Confirmed Type albuterol sulfate 90 mcg/actuation 2 inh inhalation Q4H PRN shortness 03/18/23 01/06/25 Rx breath activated powder inhaler of breath or wheezing #1 ea oxygen #2 ea 04/28/23 10/26/24 Rx diltiazem HCl 180 mg 180 mg PO DAILY #90 caps 03/12/24 01/06/25 Rx capsule,extended release 24 hr fluticasone fur. 100 mcg-umeclid 1 inh inhalation DAILY #60 ea 03/12/24 01/06/25 Rx 62.5 mcg-vilant 25 mcg inhalat.powder (Trelegy Ellipta) atorvastatin 10 mg tablet 10 mg PO QPM #90 tabs 04/11/24 01/06/25 Rx furosemide 80 mg tablet 80 mg PO DAILY #180 tabs 04/11/24 01/06/25 Rx metoprolol tartrate 100 mg tablet 100 mg PO BID #180 tabs 04/11/24 01/06/25 Rx blood sugar diagnostic (OneTouch #100 ea 06/07/24 10/26/24 Rx Ultra Test strips) lancets #100 ea 06/07/24 10/26/24 Rx acetaminophen 500 mg tablet 500 mg PO Q4H PRN TEMP >100.5 12/05/24 01/06/25 History (Tylenol Extra Strength) cefazolin 2 gram intravenous 2 g IV Q8H 12/25/24 01/06/25 Rx solution diclofenac sodium 1 % topical gel 4 g EXT QID PRN Right knee pain 12/25/24 01/06/25 Rx (Voltaren Arthritis Pain) #100 grams tamsulosin 0.4 mg capsule 0.4 mg PO HS #30 caps 12/25/24 01/06/25 Rx acetaminophen 500 mg tablet 1,000 mg PO Q8H PRN Pain 01/06/25 01/06/25 History (Tylenol Extra Strength) furosemide 10 mg/mL injection 20 mg IV Q12H 01/06/25 01/06/25 History solution insulin aspart U-100 100 unit/mL 1 sliding scale dose subcut 01/06/25 01/06/25 History subcutaneous solution (Novolog USEASDIRECTD U-100 Insulin aspart) insulin glargine 100 unit/mL 5 unit subcut Q12H 01/06/25 01/06/25 History subcutaneous solution (Lantus U-100 Insulin) ondansetron 4 mg disintegrating 4 mg PO Q6H PRN NAUSEA/VOMITING 01/06/25 01/06/25 History tablet rivaroxaban 15 mg tablet (Xarelto) 15 mg PO DAILY 01/06/25 01/06/25 History sodium chloride 0.9 % (flush) 10 ml IV Q12H 01/06/25 01/06/25 History sodium chloride 1,000 mg soluble 1,000 mg PO DAILY 01/06/25 01/06/25 History tablet Past Med/Surg History Problem List Acute hypoxic respiratory failure Metabolic encephalopathy Hematuria Proteinuria Abscess of sacrum Chronic anemia Acute on chronic renal insufficiency (Acute) Acute respiratory failure with hypoxia (Acute) Uremia Acute on chronic heart failure with preserved ejection fraction (Acute) Prosthetic joint infection Bacteremia CHLOE (acute kidney injury) 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 Diabetic foot ulcer Staphylococcus aureus bacteremia Pilonidal cyst AISHA treated with BiPAP Community acquired pneumonia CHF (congestive heart failure) (Acute) Pneumonia (Acute) Urinary retention due to benign prostatic hyperplasia CHF exacerbation Pneumonia Acute respiratory failure with hypoxia PMR (polymyalgia rheumatica) Urinary frequency Trochanteric bursitis, right hip Periprosthetic fracture around internal prosthetic right hip joint (Acute) Peripheral neuropathy Pulmonary hypertension Diastolic heart failure (Chronic) (HFpEF) heart failure with preserved ejection fraction Type 2 diabetes mellitus (Acute) Status post right knee replacement (Acute) Hx of congestive heart failure Chronic atrial fibrillation (Acute) Taking Xarelto COPD (chronic obstructive pulmonary disease) Elevated bilirubin Right knee DJD Benign essential hypertension (Chronic) Chronic obstructive pulmonary disease (Chronic) Gout (Chronic) Hypercholesterolemia (Chronic) Medical History History of cor pulmonale Other secondary pulmonary hypertension Echo/RHC 04/2023 Type II/III Follows with [facility] pulm. Per visit 04/2023, "Predominantly he has pulmonary hypertension is postcapillary due to diastolic heart failure. Treatment of this syndrome is maintaining an adequate volume status." Lumbar spinal stenosis DJD (degenerative joint disease) Hx of diabetic foot ulcer Hx of left foot ulcer "resolved" per patient- no active infection/ulcer Monitored/following with [facility] for ankle and foot care Venous insufficiency Osteoarthritis Diabetes Hyperlipidemia HTN (hypertension) Hx of gout History of COVID-19 (01/2023) Hospitalized x 3 days at [facility] AISHA (obstructive sleep apnea) BIPAP (compliant) Surgical History History of incision and drainage (01/08/25) Incision and Drainage Sacral Decubitus Ulcer - J Carlos Nesbitt, DO Hx of total knee replacement 10/11/23 History of lumbar fusion (2008) Hx of cardiac catheterization (04/26/23) RHC- Significantly elevated pulmonary capillary wedge pressure. Significantly elevated pulmonary arterial pressure and pulmonary vascular resistance. Significantly elevated right ventricular end-diastolic pressure and right atrial pressure. Recommend continue diuresis for volume overload. Additional recommendations regarding elevated pulmonary vascular resistance per pulmonary medicine team. H/O total hip arthroplasty Right History of vasectomy Family History Mother Coronary heart disease Hypertension Diabetes Denies family history of Ovarian cancer Prostate cancer Myocardial infarction Breast cancer Colorectal cancer Social History Smoking Status: Former smoker Tobacco Type: Cigarettes Age Started Using Tobacco: 10; Age Quit Using Tobacco: 48; packs per day: 2.5; Second Hand Exposure: Yes; Do You Dip or Chew Tobacco: No; Hx Alcohol Use: No Hx Substance Use: No Preferred Language: Latvian Communication Ability: Effective Visual Impairment: No Limitations Can Solderer Required: No Beliefs That Will Affect Care: None marital status: Current Living Situation: Spouse Current Living Situation Comment: and brother in law. current occupational status: disabled Feels Safe at Home: Yes Childhood Exposure to Second-Hand Smoke: Yes Diet: DASH caffeine: Yes Seatbelt Use: always Sunscreen Use: No Assistive Devices: BiPap, Cane, Walker and Other Review of Systems All systems reviewed & are unremarkable except as noted in HPI & below. Physical Exam . Physical examination was a pleasant elderly male. He is lying in bed getting dialysis when I saw him today. Examination of the right hip and leg reveals hip incision to be healed nicely. There is no real significant swelling redness. He does have diffuse edema in both legs. Leg lengths are equal. He has minimal pain with hip motion. He is neurologically intact. Results & Data Results & Data Laboratory Results . White blood cell count is 5.02. Hematocrit 8.5. Hematocrit 27.3 Diagnostic Findings . PG Care Time/CCT Total # of Minutes Spent Total Time Spent with Patient: Total time spent is greater than 50% in coordination of care (as documented) at patient's floor/unit and/or counseling patient: Coding Level of Care Code 56506 IN/OBS CONSULT LVL 4,60M Diagnoses Periprosthetic fracture around internal prosthetic right hip joint M97.01XA Encounter type: initial encounter Hx of total knee replacement Z96.659 (1) Periprosthetic fracture around internal prosthetic right hip joint Encounter type: initial encounter Qualified Code(s): M97.01XA - Periprosthetic fracture around internal prosthetic right hip joint, initial encounter
--- NOTE | 2025-01-22 17:17 | Hospitalist Progress Note ---
Date of Service January 22, 2025 Assessment & Plan (1) Acute on chronic heart failure with preserved ejection fraction: (2) Acute hypoxic respiratory failure: (3) CHLOE (acute kidney injury): (4) Uremia: (5) Prosthetic joint infection: (6) Staphylococcus aureus bacteremia: (7) Abscess of sacrum: (8) Chronic anemia: (9) Metabolic encephalopathy: Plan 69yo male with recent hospitalization for MSSA bacteremia (12/05 to 12/25) 2nd to infected right hip prosthesis. Presented from [facility] rehab due to leg swelling, hypoxia and shortness of breath. #CHLOE, hypervolemia due to renal failure Remains significantly hypervolemic despite hemodialysis although third spacing also limited by hypoproteinemia Suspected secondary to ATN most likely but cannot exclude underlying GN (recent complement levels low) or interstitial nephritis -baseline Cr ~1.4 to 1.5 -hospital d/c on 12/25/24 -- Cr was 2 -upon presentation 01/06/25 his Cr was 2.65 -Cr remained >3 with very high BUN levels and uremic symptoms throughout this stay -despite supportive care there was no improvement in UOP or his BUN/Cr -temporary HD catheter placed 01/12/25 started hemodialysis at that time -uncertain if HD will be needed just short-term vs long-term; hoping for renal recovery -permacath placement 01/16 by vascular surgery -Appreciate ongoing nephrology management with dialysis, 4L being taken off daily #Acute metabolic encephalopathy - IMPROVED s/p serial HD sessions resolved #Acute on chronic heart failure with preserved ejection fraction with resulting acute hypoxic/hypercapnic respiratory failure -mostly hypervolemia due to renal failure with proteinuria, cont HD for volume control -Aim O2 sats > 90% BiPAP HS #Right-sided pleural effusion -s/p thoracentesis with 800ml removed -transudative fluid, however culture grew staph haemolyticus -Pulmonology suspect this is likely contaminant as the original cell counts and Light's Criteria pointed towards transudative fluid rather than exudative -he is already on IV ancef which would cover this organism anyway #Left lower extremity ulcer on raza -local wound care with Aquacel Ag + Optifoam dressing -a wound cx was taken from this region showing multiple pathogens, but still no suspicion of infection or cellulitis based on clinical exam of this ulcer -cont to monitor the wound -appreciate wound care assistance #Sacral abscess - sebaceous cyst -s/p I & D and removal of the cyst by Dr Nesbitt 01/08 #Staph aureus bacteremia -dx last admission in November 2024 -source - infected right THR -due to medical complexity and other factors, orthopedics recommended no explantation of right hip hardware or I/D procedure -continue cefazolin renally dosed with last date 01/28/25 -then cefadroxil for chronic oral suppression -RUE PICC line in place remains #BPH with urinary retention -prior admission wolfe catheter removed prior to discharge -patient reported it was placed back while rehabbing at [facility] -continue tamsulosin -cont wolfe #Nondisplaced right femoral periprosthetic intertrochanteric fracture - -Diagnosed last admission -no surgical Rx needed -WBAT when working with PT/OT #Chronic anemia - -cont to trend CBC -s/p IV venofer x 5 doses #Toe ulcers - -cont local wound care #Chronic atrial fibrillation/hypertension - -Switched to Eliquis -cont metoprolol 75mg BID - continue diltiazem IR 30mg q6h - restarted after dialysis started for better rate control #COPD - -no exacerbation at this time -Duonebs PRN -Continue Trelegy #Type 2 Diabetes mellitus - -Stopped Jardiance due to CHLOE last admission -HbA1C 6.7% -continue NovoLog SSI #Hyperlipidemia - -Continue atorvastatin #Chronic gout - -allopurinol held at [facility], uric acid 7.1 -resumed at lower dose/renal dosing (50mg q48h) #AISHA - -cont home BIPAP / HS and naps -blend O2 into the BIPAP as needed VTE Prophylaxis - Eliquis Disposition - continued admission to PCU, currently requiring daily dialysis Admission and Anticipated Discharge Date Admission Date: January 06, 2025 Subjective Improving leg edema and shortness of breath. Weaning down on oxygen to 6LPM O2. Physical Exam Constitutional: well developed; + not well nourished and no acute distress ENMT: external ear and nose normal, oropharynx normal Mouth: oral mucous membranes not dry Respiratory: normal respiratory effort; no respiratory distress Auscultation: + breath sounds absent (bibasal) and + crackles (posteriorly) Cardiovascular: Rate/Rhythm: regular rate and + irregularly irregular Extremities: + pedal edema (3+ pitting to thigh but tightness has improved) Gastrointestinal (Abdomen): Inspection/Auscultation: abdomen not distended Percussion/Palpation: abdomen soft; abdomen nontender, no guarding and abdomen not rigid Neurologic: Motor/Sensory: no asterixis Psychiatric: Orientation: alert and oriented x 3 Results & Data Results & Data Vital Signs (Past 12 Hours) Vital Signs Temp Pulse Pulse Pulse Resp BP BP 01/22/25 15:00 01/22/25 14:58 36.3 C L 77 130/93 01/22/25 14:51 36.4 C L 91 H 20 122/81 01/22/25 14:17 86 01/22/25 14:00 81 123/75 01/22/25 13:30 76 125/80 01/22/25 13:00 84 123/82 01/22/25 12:30 74 104/71 01/22/25 12:00 70 116/71 01/22/25 11:30 71 114/79 01/22/25 11:00 76 113/80 01/22/25 10:57 80 111/82 01/22/25 10:51 36.3 C L 73 01/22/25 09:58 01/22/25 07:24 108 H 18 01/22/25 07:17 36.4 C L 98 H 20 117/78 01/22/25 06:00 79 Pulse Ox Pulse Ox O2 Del Method O2 Del Method O2 Flow Rate O2 Flow Rate 01/22/25 15:00 91 Nasal Cannula 8 01/22/25 14:58 01/22/25 14:51 91 High Flow Nasal Cannula 8 01/22/25 14:17 01/22/25 14:00 01/22/25 13:30 01/22/25 13:00 01/22/25 12:30 01/22/25 12:00 01/22/25 11:30 01/22/25 11:00 01/22/25 10:57 01/22/25 10:51 01/22/25 09:58 Nasal Cannula 10 01/22/25 07:24 93 Nasal Cannula 10 01/22/25 07:17 92 High Flow Nasal Cannula 10 01/22/25 06:00 PG Care Time/CCT Total # of Minutes Spent Total Time Spent with Patient: Total time spent is greater than 50% in coordination of care (as documented) at patient's floor/unit and/or counseling patient: Coding Level of Care Code 64354 SUB INP/OBS CARE MIN Diagnoses Acute on chronic heart failure with preserved ejection fraction I50.33 Acute hypoxic respiratory failure J96.01 CHLOE (acute kidney injury) N17.9 Uremia N19 Prosthetic joint infection T84.50XA Staphylococcus aureus bacteremia R78.81; B95.61 Abscess of sacrum M46.28 Chronic anemia D64.9 Metabolic encephalopathy G93.41
[2025-01-23 06:48] LABS: Hematocrit (blood only) 30.8 % (42.0-52.0); Hemoglobin 9.3 g/dL (14.0-18.0); Mean Corpuscular Hemoglobin 31.1 pg (25.0-34.0); Mean Corpuscular Volume 103.0 fL (80.0-100.0); Platelet Count 235 K/uL (130-400); RDW Standard Deviation 74.5 fL (36.4-46.3); Red Blood Count 2.99 M/uL (4.70-6.10); White Blood Count 5.67 K/ul (4.8-10.8)
[2025-01-23 07:07] LABS: Anion Gap 7.0 (3-11); Blood Urea Nitrogen 16.0 mg/dl (6-23); Calcium 8.6 mg/dl (8.6-10.3); Carbon Dioxide 25.0 mmol/L (21-32); Chloride 103.0 mmol/L (98-107); Creatinine Clr Calc Pharmacy 36.0 ml/min; Glucose 81.0 mg/dl (70-99(Fasting)); Potassium 5.1 mmol/L (3.5-5.1); Sodium 135.0 mmol/L (136-145)
[2025-01-23] MEDS ORDERED: SODIUM CHLORIDE 0.9% 1,000 ML IV PRN (08:53)
--- NOTE | 2025-01-23 08:57 | Nephrology Progress Note ---
Date of Service January 23, 2025 Assessment & Plan (1) CHLOE (acute kidney injury): Plan: * Oliguric CHLOE. Nephrology evaluation to date has revealed granular casts in the urine suggestive of ATN and low C3 suggestive of infectious glomerulonephritis. Hematuria and pyuria likely a result of indwelling Watson catheter. 01/06/25 renal US revealed atrophic R kidney 7.0 cm, L 11.6 cm. No mass, stone or hydronephrosis. No skin rash suggestive of allergic drug renuka ction * HD completed yesterday for 4L UF without complication. Patient remains on O2 at 6 L/min NC. He appears clinically volume overloaded w/ persistent LE swelling and weeping * Continue IV Bumex * Will provide HD today and attempt additional 3-4 L UF. Orders placed in EMR and fashion design professor HD RN updated * Will provide midodrine 5 mg po prior to each HD treatment for BP support * Monitor daily UO, BMP * Low C3 is concerning for infectious GN. Frailty and anticoagulation preclude renal biopsy. Agree w/ continued antibiotic therapy. * Patient hopes to return to [facility] following discharge from hospital and then attend [facility] if HD needs continue (2) Acute respiratory failure with hypoxia: Plan: * 01/20/25 CXR films w/ persistent CHF (3) Staphylococcus aureus bacteremia: Plan: * Remains on Cefazolin dosing for IHD. (4) Chronic anemia: Plan: * Hgb 10.5 * Will provide epogen 10,000 units IV w/ HD today * 01/22/25 iron sat 14%, ferritin 152 * Will administer venofer 200 mg IV w/ HD today (5) Chronic atrial fibrillation: Plan: * Eliquis renally dosed restarted 01/16/25. * Remains on metoprolol for rate control * Now on IV diltiazem q6 hrs. Will hold dose prior to HD today Admission and Anticipated Discharge Date Admission Date: January 06, 2025 Subjective Mr. Fermin was evaluated in his hospital room. He was dialyzed yesterday for 4 L UF without complication. This morning he was in no distress but continues to require O2 at 6L/min NC. He continues to display tense LE edema w/ weeping fluid Review of Systems Constitutional: no fever Eyes: no problem reported Ear, Nose, Mouth, Throat: no problem reported Respiratory: no cough and no dyspnea Cardiovascular: no chest pain and no palpitations Gastrointestinal: no abdominal pain, no nausea, no vomiting and no diarrhea/loose stools Physical Exam Constitutional: + frail appearing; not in distress Eyes: PERRL, conjunctivae normal, anicteric sclerae ENMT: external ear and nose normal, oropharynx normal Neck: trachea midline, no thyromegaly Respiratory: able to speak in complete sentences; no respiratory distress Auscultation: + rales Cardiovascular: Rate/Rhythm: + tachycardic and + irregularly irregular Extremities: + edema (tense pretibial edema w/ weeping lesions) Gastrointestinal (Abdomen): normal bowel sounds, soft, nontender, no hepatosplenomegaly Musculoskeletal: Extremities: no cyanosis and no clubbing Skin: no rashes, warm and dry Neurologic: no focal motor deficits Results & Data Vital Signs (Past 12 Hours) Vital Signs Temp Pulse Pulse Pulse Pulse Resp BP 01/23/25 07:16 36.8 C 103 H 18 128/70 01/23/25 07:10 99 H 01/23/25 02:15 90 01/23/25 02:12 36.8 C 82 20 01/22/25 23:00 36.8 C 86 18 BP Pulse Ox O2 Del Method O2 Flow Rate 01/23/25 07:16 91 High Flow Nasal Cannula 6 01/23/25 07:10 01/23/25 02:15 01/23/25 02:12 102/69 98 Nasal Cannula 6 01/22/25 23:00 98 BiPAP Laboratory Results Laboratory Results - last 24 hr 01/22/25 01/22/25 01/22/25 06:25 14:49 16:18 WBC RBC Hgb Hct MCV MCH MCHC RDW Std Deviation RDW Coeff of Marce Plt Count MPV Absolute Nucleated RBC Nucleated RBC % (auto) ESR 31 H Sodium Potassium Chloride Carbon Dioxide Anion Gap BUN Creatinine Est Cr Clr Drug Dosing eGFR BUN/Creatinine Ratio Glucose POC Glucose 89 151 H Calcium C-Reactive Protein 2.11 H 01/22/25 01/23/25 01/23/25 20:40 05:54 07:13 WBC 5.67 RBC 2.99 L Hgb 9.3 L Hct 30.8 L MCV 103.0 H MCH 31.1 MCHC 30.2 L RDW Std Deviation 74.5 H RDW Coeff of Marce 19.7 H Plt Count 235 MPV 10.7 Absolute Nucleated RBC 0.04 Nucleated RBC % (auto) 0.7 ESR Sodium 135 L Potassium 5.1 Chloride 103 Carbon Dioxide 25 Anion Gap 7 BUN 16 Creatinine 2.49 H Est Cr Clr Drug Dosing 36.0 eGFR 26.93 BUN/Creatinine Ratio 6.4 L Glucose 81 POC Glucose 142 H 118 H Calcium 8.6 C-Reactive Protein PG Care Time/CCT Total # of Minutes Spent Total Time Spent with Patient: 50 minutes provided to review progress notes, laboratory results, telemetry over last 24 hours, interview and examine patient, contact HD on-call RN and enter orders into EMR, order epogen and venofer, order am labs, discuss POC with patient, review case management recommendations, update medical record Coding Level of Care Code 48062 SUB INP/OBS CARE 350MIN Diagnoses CHLOE (acute kidney injury) N17.9 Acute respiratory failure with hypoxia J96.01 Staphylococcus aureus bacteremia R78.81; B95.61 Chronic anemia D64.9 Chronic atrial fibrillation I48.20
[2025-01-23] MEDS: MIDODRINE HCL 2.5 MG TAB PO SCH (13:05)
[2025-01-23] MEDS: EPOETIN ALFA 10,000 UNITS/ML VIAL IV ONE (16:17)
[2025-01-23] MEDS: IRON SUCROSE 200 MG in SYRINGE 0 ML IV ONE (16:18)
--- NOTE | 2025-01-24 04:54 | Hospitalist Progress Note ---
Date of Service January 23, 2025 Assessment & Plan (1) CHLOE (acute kidney injury): (2) Uremia: (3) Acute on chronic heart failure with preserved ejection fraction: (4) Prosthetic joint infection: (5) Staphylococcus aureus bacteremia: (6) AISHA treated with BiPAP: (7) Abscess of sacrum: (8) Chronic anemia: (9) Hematuria: (10) Proteinuria: Plan 69yo male with recent hospitalization for MSSA bacteremia (12/05 to 12/25) 2nd to infected right hip prosthesis. Presented from [facility] rehab due to leg swelling, hypoxia and shortness of breath. #CHLOE/acute renal failure - ongoing, with no renal recovery thus far - -baseline Cr ~1.4 to 1.5 -hospital d/c on 12/25/24 -- Cr was 2 -upon presentation 01/06/25 his Cr was 2.65 -Cr remained >3 with very high BUN levels and uremic symptoms throughout this stay -despite supportive care there was no improvement in UOP or his BUN/Cr -temporary HD catheter placed 01/12/[address] Keyes with first session on 01/12 -temporary line & permcath placed 01/16/[address] Gonzalez, vascular surgery -he has had daily HD sessions for several days now with copious UF each time (4L typically) -uremia resolved, fluid status improved, mental status improved -etiology of CHLOE is uncertain -patient with cirrhotic appearing liver on imaging in November -urine Na level was 89 which makes hepatorenal syndrome unlikely (typically quite low with HRS) -urine Cr 18.5 -FeNa very high - suggestive of ATN -AIN possible from IV antibiotics but less likely (no rash, no eosinophilia, etc) -recent complement levels were low which 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 in the setting of his MSSA bacteremia/infected right hip -complements rechecked and again were low -recent u/a with blood/protein which may suggest GN -may need kidney bx at some point but defer at this time -appreciate nephrology assistance -BMP am -of note - remains bumex IV BID at this time #acute metabolic encephalopathy - resolved - -2nd to uremia #acute on chronic heart failure with preserved ejection fraction with resulting acute hypoxic/hypercapnic respiratory failure - -CHLOE/ARF the largest culprit in his volume overloaded state -diastolic CHF, hypoalbuminemia, +/- cirrhosis also likely contributing to volume overload -cont HD for volume control #right-sided pleural effusion - -s/p thoracentesis with 800ml removed -transudative fluid, however culture grew staph haemolyticus -pulmonary felt this was likely a contaminant as the original cell counts and Lites' Criteria pointed towards transudative fluid rather than exudative -he is already on IV ancef which would cover this organism if truly pathogenic #Left lower extremity ulcer on raza - -local wound care with Aquacel Ag + ABDs/kerlix -appreciate wound care assistance #Sacral abscess - sebaceous cyst - -s/p I & D and removal of the cyst by Dr Nesbitt -woundvac in place; cont exchanges by wound care; last exchange was today #Staph aureus bacteremia - -dx last admission in November 2024 -source - infected right THR -due to medical complexity and other factors, orthopedics recommended no explantation of right hip hardware or I/D procedure -continue cefazolin renally dosed with last date 01/28/25 -then cefadroxil for chronic oral suppression -RUE PICC line in place remains -Dr Beltran was consulted again this admission - still no plans for surgical intervention (see his consult note) -ID consult tomorrow #BPH with urinary retention - -prior admission wolfe catheter removed prior to discharge -patient reported it was placed back while rehabbing at [facility] -continue tamsulosin -cont wolfe, but remove soon if renal recovery does not occur? #Nondisplaced right femoral periprosthetic intertrochanteric fracture - -Diagnosed last admission -no surgical Rx needed -WBAT when working with PT/OT #Chronic anemia - -H/H are acceptable -s/p IV venofer x 5 doses earlier this admission #Toe ulcers - -cont local wound care #Chronic atrial fibrillation/hypertension - -Xarelto changed to Eliquis 5mg BID -cont metoprolol 75mg BID -cont diltiazem IR 30mg q6h with ultimate transition to long-acting #COPD - -no exacerbation at this time -Duonebs PRN -Continue Trelegy #Type 2 Diabetes mellitus - -Stopped Jardiance due to CHLOE -HbA1C 6.7% -continue NovoLog SSI #Hyperlipidemia - -Continue atorvastatin #Chronic gout - -allopurinol held at [facility], uric acid 7.1 -resumed at lower dose/renal dosing (50mg q48h) #AISHA - -cont home BIPAP HS and naps -blend O2 into the BIPAP as needed VTE Prophylaxis - Eliquis 5mg BID cont PT,OT pt's daughter/ updated at bedside -made Dr Lema and case management aware of their request for outpatient HD to be in [place] ultimate dispo - [facility] offered 2nd opinion re: right hip-- patient & family to think about it Admission and Anticipated Discharge Date Admission Date: January 06, 2025 Subjective sitting at side of bed he denies depression or feeling blue his edema is much better dyspnea improved eating very well - nearly "everything" right hip pain is minimal , daughter both at bedside during the visit family wishes for outpatient HD to be performed in [place] rather than [place] (latter is 30 miles from their home, former is 10 miles) tele overnight - a.fib Review of Systems Review of Systems: CV - no chest pain pulm - no dyspnea at rest GI - no abd pain or N/V; had BM this morning Physical Exam Physical Exam: gen - sitting at side of bed, looks better than when I last saw him about 5 days ago, NAD neck - no JVD today mouth - MMM heart - irregularly irregular, s1 s2, 1/6 systolic murmur LLSB/axillary region; rate <100 lungs - decreased BS bases, some crackles b/l, no wheeze, no increased work of breathing abd - soft, NT, BS+, ND ext - trace-1+ edema shins/feet b/l; edema of arms resolved vascular - right tunneled HD catheter in place psych - a/o x 3 Results & Data Results & Data Vital Signs (Past 12 Hours) Vital Signs Temp Pulse Pulse Pulse Resp BP BP 01/23/25 17:00 85 134/83 01/23/25 16:30 85 131/91 01/23/25 16:00 94 H 128/70 01/23/25 15:30 75 120/81 01/23/25 15:00 94 H 124/84 01/23/25 14:30 71 117/75 01/23/25 14:00 65 113/71 01/23/25 13:51 81 01/23/25 13:30 83 108/75 01/23/25 13:11 36.5 C 75 01/23/25 12:27 01/23/25 11:01 36.6 C 92 H 16 121/80 01/23/25 08:00 01/23/25 07:16 36.8 C 103 H 18 128/70 01/23/25 07:10 99 H Laboratory Results Laboratory Results - last 24 hr 01/23/25 01/23/25 01/23/25 05:54 07:13 10:58 WBC 5.67 RBC 2.99 L Hgb 9.3 L Hct 30.8 L MCV 103.0 H MCH 31.1 MCHC 30.2 L RDW Std Deviation 74.5 H RDW Coeff of Marce 19.7 H Plt Count 235 MPV 10.7 Absolute Nucleated RBC 0.04 Nucleated RBC % (auto) 0.7 Sodium 135 L Potassium 5.1 Chloride 103 Carbon Dioxide 25 Anion Gap 7 BUN 16 Creatinine 2.49 H Est Cr Clr Drug Dosing 36.0 eGFR 26.93 BUN/Creatinine Ratio 6.4 L Glucose 81 POC Glucose 118 H 116 H Calcium 8.6 PG Care Time/CCT Total # of Minutes Spent Total Time Spent with Patient: Total time spent is greater than 50% in coordination of care (as documented) at patient's floor/unit and/or counseling patient: Coding Level of Care Code 75204 SUB INP/OBS CARE 3/50MIN Diagnoses CHLOE (acute kidney injury) N17.9 Uremia N19 Acute on chronic heart failure with preserved ejection fraction I50.33 Prosthetic joint infection T84.50XA Staphylococcus aureus bacteremia R78.81; B95.61 AISHA treated with BiPAP G47.33 Abscess of sacrum M46.28 Chronic anemia D64.9 Hematuria R31.9 Proteinuria R80.9
[2025-01-24 06:22] LABS: Anion Gap 5.0 (3-11); Blood Urea Nitrogen 15.0 mg/dl (6-23); Calcium 8.4 mg/dl (8.6-10.3); Carbon Dioxide 26.0 mmol/L (21-32); Chloride 105.0 mmol/L (98-107); Creatinine Clr Calc Pharmacy 39.4 ml/min; Glucose 82.0 mg/dl (70-99(Fasting)); Potassium 4.3 mmol/L (3.5-5.1); Sodium 136.0 mmol/L (136-145)
[2025-01-24] MEDS ORDERED: SODIUM CHLORIDE 0.9% 1,000 ML IV PRN (08:54)
--- NOTE | 2025-01-24 08:58 | Nephrology Progress Note ---
Date of Service January 24, 2025 Assessment & Plan (1) CHLOE (acute kidney injury): Plan: * Oliguric CHLOE. Nephrology evaluation to date has revealed granular casts in the urine suggestive of ATN and low C3 suggestive of infectious glomerulonephritis. Hematuria and pyuria likely a result of indwelling Watson catheter. 01/06/25 renal US revealed atrophic R kidney 7.0 cm, L 11.6 cm. No mass, stone or hydronephrosis. No skin rash or eosinophilia suggestive of a llergic drug reaction * Weight is down 40 lbs, net UF this hospitalization has been 32 L. Nevertheless, patient remains on O2 at 6 L/min NC. LE swelling has improved and will now pit but patient still has serous drainage through the skin. Will plan HD today and tomorrow for ongoing UF and hope to rest patient over weekend * Will order follow up CXR for am * Patient is oliguric. Bumex has been stopped * Will provide midodrine 5 mg po prior to each HD treatment for BP support * Low C3 is concerning for infectious GN. Frailty and anticoagulation preclude renal biopsy. * Patient hopes to return to [facility] following discharge from hospital and then attend [facility] if HD needs continue (2) Acute respiratory failure with hypoxia: Plan: * Follow up CXR ordered for am (3) Staphylococcus aureus bacteremia: Plan: * Remains on Cefazolin dosing for IHD. (4) Chronic anemia: Plan: * Hgb 9.3 * 01/22/25 iron sat 14%, ferritin 152 * Will administer venofer 200 mg IV w/ HD today (5) Chronic atrial fibrillation: Plan: * Eliquis renally dosed restarted 01/16/25. * Remains on metoprolol for rate control * Now on IV diltiazem q6 hrs. Will hold dose prior to HD today Admission and Anticipated Discharge Date Admission Date: January 06, 2025 Subjective Mr. Fermin was evaluated in his hospital room. He was dialyzed yesterday for 4 L UF without complication. This morning he was in no distress but continues to require O2 at 6L/min NC. LE swelling is now pitting but patient still has serous fluid weeping from the skin Review of Systems Constitutional: no fever Eyes: no problem reported Ear, Nose, Mouth, Throat: no problem reported Respiratory: no cough and no dyspnea Cardiovascular: no chest pain and no palpitations Gastrointestinal: no abdominal pain, no nausea, no vomiting and no diarrhea/loose stools Physical Exam Constitutional: + frail appearing; not in distress Eyes: PERRL, conjunctivae normal, anicteric sclerae ENMT: external ear and nose normal, oropharynx normal Neck: trachea midline, no thyromegaly Respiratory: able to speak in complete sentences; no respiratory distress Auscultation: + rales Cardiovascular: Rate/Rhythm: regular rate and + irregularly irregular Extremities: + edema (3+ pretibial edema w/ weeping lesions) Gastrointestinal (Abdomen): normal bowel sounds, soft, nontender, no hepatosplenomegaly Musculoskeletal: Extremities: no cyanosis and no clubbing Skin: no rashes, warm and dry Neurologic: no focal motor deficits Results & Data Vital Signs (Past 12 Hours) Vital Signs Temp Pulse Resp BP Pulse Ox O2 Del Method O2 Flow Rate 01/24/25 07:07 36.6 C 79 18 111/62 95 High Flow Nasal Cannula 6 01/24/25 02:18 36.5 C 80 20 102/59 L 91 BiPAP 01/24/25 00:29 High Flow Nasal Cannula 6 01/23/25 23:25 BiPAP 01/23/25 22:34 36.7 C 86 18 126/75 99 BiPAP Laboratory Results Laboratory Results - last 24 hr 01/23/25 01/23/25 01/23/25 10:58 17:30 20:11 Sodium Potassium Chloride Carbon Dioxide Anion Gap BUN Creatinine Est Cr Clr Drug Dosing eGFR BUN/Creatinine Ratio Glucose POC Glucose 116 H 93 101 H Calcium 01/24/25 01/24/25 05:27 07:04 Sodium 136 Potassium 4.3 Chloride 105 Carbon Dioxide 26 Anion Gap 5 BUN 15 Creatinine 2.27 H Est Cr Clr Drug Dosing 39.4 eGFR 30.09 BUN/Creatinine Ratio 6.6 L Glucose 82 POC Glucose 73 Calcium 8.4 L PG Care Time/CCT Total # of Minutes Spent Total Time Spent with Patient: 50 minutes provided to review progress notes, laboratory results, interview and examine patient, contact HD on-call RN and enter orders into EMR, order venofer, order am labs, discuss POC with patient, review case management recommendations, update medical record Coding Level of Care Code 54629 SUB INP/OBS CARE 3/50MIN Diagnoses CHLOE (acute kidney injury) N17.9 Acute respiratory failure with hypoxia J96.01 Staphylococcus aureus bacteremia R78.81; B95.61 Chronic anemia D64.9 Chronic atrial fibrillation I48.20
--- NOTE | 2025-01-24 08:58 | Infectious Disease Consult ---
Date of Consultation January 24, 2025 Assessment & Plan (1) Prosthetic joint infection: (2) Acute on chronic renal insufficiency: Plan Problems: #MSSA R hip PJI and R proximal femur abscess/osteomyelitis s/p IR aspiration 12/11 and 12/18 #CHLOE/renal failure on HD via TDC #CHF #Sacral sebaceous cyst s/p I&D 01/08, wound vac in place #DM2 #Diabetic foot ulcers: L first toe (MRI L foot without osteomyelitis), R second toe #R JAMES #R TKA Micro: 01/09 R pleural fluid cx: Staph haemolyticus 01/06 LLE wound cx: Enterobacter cloacae, Pseudomonas aeruginosa, Goldie tropicalis 12/18 R hip aspirate cx: GPCs, nonviable for sensitivities or further i dentification 12/11 R hip aspirate cx: MSSA (S tetra, TMP/SMX) 12/09 BCx x2: NG 12/07 BCx x2: NG 12/05 UCx: NG 12/05 BCx x2: MSSA in 3/4 bottles, Bacteroides fragilis in 1/4 bottles Abx: Cefazolin 69 yo M with history of afib, PMR, peripheral neuropathy, pulmonary hypertension, AISHA on nightly BiPAP, HFpEF, DM2, HTN, COPD, gout, hypercholesterolemia, R JAMES, R TKA, recent admission 12/05 - 12/25 with MSSA and Bacteroides fragilis bacteremia found to have MSSA R hip PJI/osteomyelitis, being managed medically with antibiotics as ortho feels pt is a poor surgical candidate. Was discharged to SNF on 12/25 on cefazolin with plan for 6 week course, followed by lifelong suppressive PO antibiotic. Pt then presented on 01/06 with leg swelling, hypoxia, shortness of breath, admitted with CHF, CHLOE now on HD. See ID note from 12/19 for summary of his last hospitalization. Unclear source of Bacteroides fragilis bacteremia, but did clear from subsequent blood culture prior to initiation of metronidazole. TTE and STERLING negative. Noted on CTAP to have cortical erosion along medial cortex of R proximal femur with ~6.5 cm pocket of adjacent fluid. Also with 6 cm ovoid cystic structure in subcutaneous soft tissues along inferior R gluteal crease, could represent pilonidal cyst. Surgery felt the cyst did not look like abscess and there were no signs of infection on exam, so held off on surgical intervention. US guided aspiration of R hip fluid collection was performed 12/11 and grew MSSA. Ortho discussed with radiology, who felt the fluid collection involved the hip joint. Treating as R hip PJI/osteomyelitis, which is likely the source of pt's MSSA bacteremia. Per discussion with ortho, pt is a poor surgical candidate, with uncemented hip replacement well ingrown and present for 20 years, so removal of the hardware is not recommended unless clinically worsens with antibiotics. Due to persistent leukocytosis, pt underwent CT R hip 12/17 which showed continued increase in the size of the fluid collection along the proximal R femur, now 6.9 x 4.2, c/f abscess; mild increase in rim-enhancing collection immediately lateral to R hip which is also c/f abscess and PJI; nondisplaced R femoral periprosthetic intertrochanteric fracture with associated lucency/erosion which may be c/f osteomyelitis. The patient underwent repeat IR drainage on 12/18/24 with Cx growing GPCs nonviable for sensitivities or further identification. ID expressed concern that the patient has had progression of his infection despite maximal antibiotic therapy, and despite previous IR aspiration on 12/11. However, at this time, per pt/family, ortho, and primary team, continued medical management with 6 weeks of IV cefazolin followed by transition to cefadroxil for indefinite/lifelong oral suppression. Held off on rifampin, which has been studied in cases of Staph aureus PJI managed with DAIR. This pt has not undergone a DAIR procedure, and have high concern for lack of source control at this time. With high bioburden in the prosthetic joint without washout, could develop resistance to rifampin if added. Pt also with DDI between rifampin and home med diltiazem. Will therefore defer rifampin at this time, but could consider adding it in the future if pt does end up undergoing a DAIR procedure if antibiotics alone fail. Over the course of this hospitalization, pt has had worsening CHLOE, now on HD via tunneled dialysis catheter (placed 01/16). Had a LLE ulcer from which a superficial wound cx grew Enterobacter cloacae, Pseudomonas, and Goldie, but felt not to be infected as there was no erythema. Also had R sided pleural effusion s/p thoracentesis which demonstrated transudative effusion. Pleural fluid culture grew Staph haemolyticus, felt to be a contaminant. Did have a sebaceous cyst over the sacral region s/p I&D 01/08, with wound vac in place. Per nephrology, urine with granular casts suggestive of ATN and low C3 suggestive of infectious glomerulonephritis. Ortho input requested again on 01/22 on the R hip PJI--again recommended against surgical intervention. On my evaluation, pt reports his R hip continues to feel sore, but is improved from prior. Recommendations: - Continue cefazolin 1 g IV q24h (administered after HD on dialysis days) to complete a 6-week course on 01/28/25 - After completion of IV antibiotics on 01/28, would transition to cefadroxil 500 mg PO nightly for lifelong antibiotic suppression (dosed for HD. Administer after HD on dialysis days). Can send with 3 month supply - Would remove PICC prior to discharge - Remain concerned that there is a lack of source control at this time, and that the patient will continue to have progression of his infection in the absence of surgical washout. Ensure close follow-up with orthopedic surgery - I will arrange for telemedicine ID follow-up in a few months for monitoring on oral suppressive antibiotic Will sign off. Please re-involve ID with further concerns Consultation Information Consultation was provided via telemedicine using two-way real-time interactive telecommunication between the patient and the telemedicine provider. For the duration of the visit, the provider was performing the assessment from a different facility than the patient. This includesuse of bluetooth stethoscope forauscultationperformed by the telepresenter that the telemedicine provider can hear if described in the physical exam. Employee Relations Consultant contact information: Please call [facility] . (Phone Number For Physician Use Only) After establishing a telemedicine visit, patient was: Patient was verified with two unique identifiers, Patient/authorized rep acknowledged consent and understanding and Gave permission to continue telehealth session Time Spent with Patient: Initial => 55 min History of Present Illness Reason for Consultation: MSSA R hip PJI Attending Physician: Indio Mae MD History of Present Illness 69 yo M with history of afib, PMR, peripheral neuropathy, pulmonary hypertension, AISHA on nightly BiPAP, HFpEF, DM2, HTN, COPD, gout, hypercholesterolemia, R JAMES, R TKA, recent admission 12/05 - 12/25 with MSSA and Bacteroides fragilis bacteremia found to have MSSA R hip PJI, being managed medically with antibiotics as ortho feels pt is a poor surgical candidate. Was discharged to SNF on 12/25 on cefazolin with plan for 6 week course, followed by lifelong suppressive PO antibiotic. Pt then presented on 01/06 with leg swelling, hypoxia, shortness of breath, admitted with CHF, CHLOE. See ID note from 12/19 for summary of his last hospitalization. Unclear source of Bacteroides fragilis bacteremia, but did clear from subsequent blood culture prior to initiation of metronidazole. TTE and STERLING negative. Noted on CTAP to have cortical erosion along medial cortex of R proximal femur with ~6.5 cm poc ket of adjacent fluid. Also with 6 cm ovoid cystic structure in subcutaneous soft tissues along inferior R gluteal crease, could represent pilonidal cyst. Surgery felt the cyst did not look like abscess and there were no signs of infection on exam, so held off on surgical intervention. US guided aspiration of R hip fluid collection was performed 12/11 and grew MSSA. Ortho discussed with radiology, who felt the fluid collection involved the hip joint. Treating as R hip PJI/osteomyelitis, which is likely the source of pt's MSSA bacteremia. Per discussion with ortho, pt is a poor surgical candidate, with uncemented hip replacement well ingrown and present for 20 years, so removal of the hardware is not recommended unless clinically worsens with antibiotics. Due to persistent leukocytosis, pt underwent CT R hip 12/17 which showed continued increase in the size of the fluid collection along the proximal R femur, now 6.9 x 4.2, c/f abscess; mild increase in rim-enhancing collection immediately lateral to R hip which is also c/f abscess and PJI; nondisplaced R femoral periprosthetic intertrochanteric fracture with associated lucency/erosion which may be c/f osteomyelitis. The patient underwent repeat IR drainage on 12/18/24 with Cx growing GPCs nonviable for sensitivities or further identification. ID expressed concern that the patient has had progression of his infection despite maximal antibiotic therapy, and despite previous IR aspiration on 12/11. However, at this time, per pt/family, ortho, and primary team, continued medical management with 6 weeks of IV cefazolin followed by transition to cefadroxil for indefinite/lifelong oral suppression. Held off on rifampin, which has been studied in cases of Staph aureus PJI managed with DAIR. This pt has not undergone a DAIR procedure, and have high concern for lack of source control at this time. With high bioburden in the prosthetic joint without washout, could develop resistance to rifampin if added. Pt also with DDI between rifampin and home med diltiazem. Will therefore defer rifampin at this time, but could consider adding it in the future if pt does end up undergoing a DAIR procedure if antibiotics alone fail. Over the course of this hospitalization, pt has had worsening CHLOE, now on HD via tunneled dialysis catheter (placed 01/16). Had a LLE ulcer from which a superficial wound cx grew Enterobacter cloacae, Pseudomonas, and Goldie, but felt not to be infected as there was no erythema. Also had R sided pleural effusion s/p thoracentesis which demonstrated transudative effusion. Pleural fluid culture grew Staph haemolyticus, felt to be a contaminant. Did have a sebaceous cyst over the sacral region s/p I&D 01/08, with wound vac in place. Per nephrology, urine with granular casts suggestive of ATN and low C3 suggestive of infectious glomerulonephritis. Ortho input requested again on 01/22 on the R hip PJI--again recommended against surgical intervention. On my evaluation, pt reports his R hip continues to feel sore, but is improved from prior. Allergies Allergy/AdvReac Type Severity Reaction Status Date / Time dicyclomine [From Bentyl] Allergy Unknown CAN'T Verified 01/06/25 14:54 REMEMBER Home Medications Medication Instructions Recorded Confirmed Type albuterol sulfate 90 mcg/actuation 2 inh inhalation Q4H PRN shortness 03/18/23 01/06/25 Rx breath activated powder inhaler of breath or wheezing #1 ea oxygen #2 ea 04/28/23 10/26/24 Rx diltiazem HCl 180 mg 180 mg PO DAILY #90 caps 03/12/24 01/06/25 Rx capsule,extended release 24 hr fluticasone fur. 100 mcg-umeclid 1 inh inhalation DAILY #60 ea 03/12/24 01/06/25 Rx 62.5 mcg-vilant 25 mcg inhalat.powder (Trelegy Ellipta) atorvastatin 10 mg tablet 10 mg PO QPM #90 tabs 04/11/24 01/06/25 Rx furosemide 80 mg tablet 80 mg PO DAILY #180 tabs 04/11/24 01/06/25 Rx metoprolol tartrate 100 mg tablet 100 mg PO BID #180 tabs 04/11/24 01/06/25 Rx blood sugar diagnostic (OneTouch #100 ea 06/07/24 10/26/24 Rx Ultra Test strips) lancets #100 ea 06/07/24 10/26/24 Rx acetaminophen 500 mg tablet 500 mg PO Q4H PRN TEMP >100.5 12/05/24 01/06/25 History (Tylenol Extra Strength) cefazolin 2 gram intravenous 2 g IV Q8H 12/25/24 01/06/25 Rx solution diclofenac sodium 1 % topical gel 4 g EXT QID PRN Right knee pain 12/25/24 01/06/25 Rx (Voltaren Arthritis Pain) #100 grams tamsulosin 0.4 mg capsule 0.4 mg PO HS #30 caps 12/25/24 01/06/25 Rx acetaminophen 500 mg tablet 1,000 mg PO Q8H PRN Pain 01/06/25 01/06/25 History (Tylenol Extra Strength) furosemide 10 mg/mL injection 20 mg IV Q12H 01/06/25 01/06/25 History solution insulin aspart U-100 100 unit/mL 1 sliding scale dose subcut 01/06/25 01/06/25 History subcutaneous solution (Novolog USEASDIRECTD U-100 Insulin aspart) insulin glargine 100 unit/mL 5 unit subcut Q12H 01/06/25 01/06/25 History subcutaneous solution (Lantus U-100 Insulin) ondansetron 4 mg disintegrating 4 mg PO Q6H PRN NAUSEA/VOMITING 01/06/25 01/06/25 History tablet rivaroxaban 15 mg tablet (Xarelto) 15 mg PO DAILY 01/06/25 01/06/25 History sodium chloride 0.9 % (flush) 10 ml IV Q12H 01/06/25 01/06/25 History sodium chloride 1,000 mg soluble 1,000 mg PO DAILY 01/06/25 01/06/25 History tablet Patient History Medical History History of cor pulmonale Other secondary pulmonary hypertension Echo/RHC 04/2023 Type II/III Follows with [facility] pulm. Per visit 04/2023, "Predominantly he has pulmonary hypertension is postcapillary due to diastolic heart failure. Treatment of this syndrome is maintaining an adequate volume status." Lumbar spinal stenosis DJD (degenerative joint disease) Hx of diabetic foot ulcer Hx of left foot ulcer "resolved" per patient- no active infection/ulcer Monitored/following with [facility] for ankle and foot care Venous insufficiency Osteoarthritis Diabetes Hyperlipidemia HTN (hypertension) Hx of gout History of COVID-19 (01/2023) Hospitalized x [address] [facility] AISHA (obstructive sleep apnea) BIPAP (compliant) Surgical History History of incision and drainage (01/08/25) Incision and Drainage Sacral Decubitus Ulcer - J Carlos Nesbitt, DO Hx of total knee replacement 10/11/23 History of lumbar fusion (2008) Hx of cardiac catheterization (04/26/23) RHC- Significantly elevated pulmonary capillary wedge pressure. Significantly elevated pulmonary arterial pressure and pulmonary vascular resistance. Significantly elevated right ventricular end-diastolic pressure and right atrial pressure. Recommend continue diuresis for volume overload. Additional recommendations regarding elevated pulmonary vascular resistance per pulmonary medicine team. H/O total hip arthroplasty Right History of vasectomy Family History Mother Coronary heart disease Hypertension Diabetes Denies family history of Ovarian cancer Prostate cancer Myocardial infarction Breast cancer Colorectal cancer Social History Smoking Status: Former smoker Tobacco Type: Cigarettes Age Started Using Tobacco: 10; Age Quit Using Tobacco: 48; packs per day: 2.5; Second Hand Exposure: Yes; Do You Dip or Chew Tobacco: No; Hx Alcohol Use: No Hx Substance Use: No Preferred Language: Prydeinig Communication Ability: Effective Visual Impairment: No Limitations Supply Aide Required: No Beliefs That Will Affect Care: None marital status: Current Living Situation: Spouse Current Living Situation Comment: and brother in law. current occupational status: disabled Feels Safe at Home: Yes Childhood Exposure to Second-Hand Smoke: Yes Diet: DASH caffeine: Yes Seatbelt Use: always Sunscreen Use: No Assistive Devices: BiPap, Cane, Walker and Other Review of System A complete ROS was performed and is negative except as mentioned in the HPI. Physical Exam Physical Exam: GEN: laying in bed in NAD. RESP: No increased work of breathing SKIN: R hip without erythema NEURO: Alert and oriented. Answers all questions appropriately. Speech not slurred. PSYCH: Normal mood, affect appropriate. Results & Data Vital Signs (Past 12 Hours) Vital Signs Temp Pulse Resp BP Pulse Ox O2 Del Method O2 Flow Rate 01/24/25 07:07 36.6 C 79 18 111/62 95 High Flow Nasal Cannula 6 01/24/25 02:18 36.5 C 80 20 102/59 L 91 BiPAP 01/24/25 00:29 High Flow Nasal Cannula 6 01/23/25 23:25 BiPAP 01/23/25 22:34 36.7 C 86 18 126/75 99 BiPAP Laboratory Results [facility] 01/24/25 05:27 Sodium 136 Potassium 4.3 Chloride 105 Carbon Dioxide 26 BUN 15 Creatinine 2.27 H Glucose 82 Calcium 8.4 L Medications Administered Current Inpatient Medications Acetaminophen (Acetaminophen 325 Mg Tab) 650 mg PO Q4H PRN PRN Reason: Pain or Fever Stop: 02/05/25 15:03 Last Admin: 01/23/25 20:09 Dose: 650 mg Albuterol (Albut/Ipratrop 3mg/0.5mg Neb 3 Ml Vial) 3 ml NEB QIDR PRN; Protocol PRN Reason: Shortness Of Breath Or Wheezing Stop: 02/07/25 19:59 Allopurinol (Allopurinol 100 Mg Tab) 50 mg PO Q48H IVETH Stop: 02/08/25 08:59 Last Admin: 01/23/25 08:35 Dose: 50 mg Apixaban (Apixaban 5 Mg Tablet) 5 mg PO BID IVETH Stop: 02/17/25 20:59 Last Admin: 01/24/25 08:58 Dose: 5 mg Atorvastatin Calcium (Atorvastatin 10 Mg Tab) 10 mg PO QPM IVETH Stop: 02/05/25 20:59 Last Admin: 01/23/25 20:11 Dose: 10 mg Dextrose (Dextrose 50% 50 Ml Syringe) 25 - 50 ml IV UD PRN; Protocol PRN Reason: Hypoglycemia Protocol Stop: 02/05/25 15:20 Diltiazem HCl (Diltiazem Hcl 120 Mg Capcr) 120 mg PO DAILY IVETH Stop: 02/06/25 08:59 Last Admin: 01/07/25 08:37 Dose: 120 mg Diltiazem HCl (Diltiazem Hcl 30 Mg Tab) 30 mg PO Q6H [facility] Stop: 02/14/25 09:14 Last Admin: 01/24/25 08:58 Dose: 30 mg Fluticasone Furoate (Fluticasone Furoate 100mcg 14 Puffs/Inhaler) 1 puffs INH DAILY [facility] Stop: 02/06/25 08:59 Last Admin: 01/24/25 08:58 Dose: 1 puffs Glucagon (Glucagon For Inj 1 Mg Vial) 1 mg SQ UD PRN; Protocol PRN Reason: Hypoglycemia Protocol Stop: 02/05/25 15:20 Glucose (Glucose 40% Gel 15 Gm Tube) 15 - 30 gm PO UD PRN; Protocol PRN Reason: Hypoglycemia Protocol Stop: 02/05/25 15:20 Glucose (Glucose 10 Tab/Tube) 4 - 8 tab PO UD PRN; Protocol PRN Reason: Hypoglycemia Protocol Stop: 02/05/25 15:20 Heparin Sodium (Beef Lung) (Heparin 10 Unit/Ml 5 Ml Flush) 5 ml FLUSH PRN PRN PRN Reason: Flush Stop: 02/06/25 04:54 Last Admin: 01/13/25 09:26 Dose: 5 ml Cefazolin Sodium (Ancef 1000mg) 1,000 mg in 7.5 mls @ 2.5 mls/min IV DAILY@1800 [facility] Stop: 01/26/25 17:59 Last Admin: 01/23/25 17:53 Dose: 2.5 mls/min Bumetanide 2 mg/ Syringe 8 mls @ 4 mls/min IV BID@0900,1700 [facility] Stop: 02/15/25 12:24 Last Admin: 01/24/25 08:58 Dose: 4 mls/min Sodium Chloride (Nss) 1,000 mls @ 0 mls/hr IV .Q0M PRN PRN Reason: For Hemodialysis Use ONLY Stop: 01/24/25 14:53 Insulin Aspart (Insulin Aspart Per Unit Charge) 0 units SC ACHS [facility] Stop: 02/08/25 16:29 Last Admin: 01/24/25 07:52 Dose: Not Given Metoprolol Tartrate (Metoprolol Tartrate 25 Mg Tab) 75 mg PO BID [facility] Stop: 02/12/25 20:59 Last Admin: 01/24/25 08:59 Dose: 75 mg Miscellaneous (Carbohydrates For Hypoglycemia ) 15 - 30 gm PO UD PRN PRN Reason: Hypoglycemia Protocol Stop: 02/05/25 15:20 Polyethylene Glycol (Polyethylene (Miralax) 17 Gm Pack) 17 gm PO DAILY PRN PRN Reason: Constipation Stop: 02/18/25 20:52 Last Admin: 01/19/25 21:03 Dose: 17 gm Tamsulosin HCl (Tamsulosin Hcl 0.4 Mg Cap) 0.4 mg PO HS IVETH Stop: 02/05/25 20:59 Last Admin: 01/23/25 20:11 Dose: 0.4 mg Umeclidinium/Vilanterol (Umeclidinium/Vilanterol 62.5/25mcg 7 Puffs/Inhaler) 1 puffs INH DAILY IVETH Stop: 02/06/25 08:59 Last Admin: 01/24/25 08:59 Dose: 1 puffs
[2025-01-24] MEDS: MIDODRINE HCL 2.5 MG TAB PO STA (09:13)
[2025-01-24] MEDS: IRON SUCROSE 200 MG in SYRINGE 0 ML IV ONE (12:56)
--- NOTE | 2025-01-24 20:00 | Hospitalist Progress Note ---
Date of Service January 24, 2025 Assessment & Plan (1) CHLOE (acute kidney injury): (2) Uremia: (3) Acute on chronic heart failure with preserved ejection fraction: (4) Prosthetic joint infection: (5) Staphylococcus aureus bacteremia: (6) AISHA treated with BiPAP: (7) Abscess of sacrum: (8) Chronic anemia: (9) Hematuria: (10) Proteinuria: Plan 69yo male with recent hospitalization for MSSA bacteremia (12/05 to 12/25) 2nd to infected right hip prosthesis. Presented from [facility] rehab due to leg swelling, hypoxia and shortness of breath. #CHLOE/acute renal failure - ongoing, with no renal recovery thus far - -baseline Cr ~1.4 to 1.5 -hospital d/c on 12/25/24 -- Cr was 2 -upon presentation 01/06/25 his Cr was 2.65 -Cr remained >3 with very high BUN levels and uremic symptoms throughout this stay -despite supportive care there was no improvement in UOP or his BUN/Cr -temporary HD catheter placed 01/12/[address] Keyes with first session on 01/12 -temporary line & permcath placed 01/16/[address] Gonzalez, vascular surgery -he has had daily HD sessions for several days now with copious UF each time (4L typically) -uremia resolved, fluid status improved, mental status improved -etiology of CHLOE is uncertain -patient with cirrhotic appearing liver on imaging in November -urine Na level was 89 which makes hepatorenal syndrome unlikely (typically quite low with HRS) -urine Cr 18.5 -FeNa very high - suggestive of ATN -AIN possible from IV antibiotics but less likely (no rash, no eosinophilia, etc) -recent complement levels were low which 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 in the setting of his MSSA bacteremia/infected right hip -complements rechecked and again were low -recent u/a with blood/protein which may suggest GN -may need kidney bx at some point but defer at this time -appreciate nephrology assistance -BMP am -of note - remains bumex IV BID at this time - defer management to nephrology -to have HD tomorrow 01/25, then will likely skip the weekend, and resume next week - 3 days/week schedule at that time? #acute metabolic encephalopathy - resolved - -2nd to uremia #acute on chronic heart failure with preserved ejection fraction with resulting acute hypoxic/hypercapnic respiratory failure - -CHLOE/ARF the largest culprit in his volume overloaded state -diastolic CHF, hypoalbuminemia, +/- cirrhosis also likely contributed to volume overload -cont HD for volume control #right-sided pleural effusion - -s/p thoracentesis with 800ml removed -transudative fluid, however culture grew staph haemolyticus -pulmonary felt this was likely a contaminant as the original cell counts and Lites' Criteria pointed towards transudative fluid rather than exudative -he is already on IV ancef which would have covered this organism if truly pathogenic #Left lower extremity ulcer on raza - -local wound care with Aquacel Ag + ABDs/kerlix -appreciate wound care assistance #Sacral abscess - sebaceous cyst - -s/p I & D and removal of the cyst by Dr Nesbitt -woundvac in place; cont exchanges by wound care; last exchange was today #Staph aureus bacteremia - -dx last admission in November 2024 -source - infected right THR -due to medical complexity and other factors, orthopedics recommended no explantation of right hip hardware or I/D procedure -continue cefazolin renally dosed with last date 01/28/25 -then cefadroxil for chronic oral suppression -RUE PICC line in place remains -Dr Beltran was consulted again this admission - still no plans for surgical intervention (see his consult note) -ID consult today appreciated #BPH with urinary retention - -prior admission wolfe catheter removed prior to discharge -patient reported it was placed back while rehabbing at [facility] -continue tamsulosin -remove wolfe today; only place back if he has retention -making only about 200cc or less per day of urine #Nondisplaced right femoral periprosthetic intertrochanteric fracture - -Diagnosed last admission -no surgical Rx needed -WBAT when working with PT/OT #Chronic anemia - -H/H remain acceptable -s/p IV venofer x 5 doses earlier this admission #Toe ulcers - -cont local wound care #Chronic atrial fibrillation/hypertension - -Xarelto changed to Eliquis 5mg BID -cont metoprolol 75mg BID -cont diltiazem IR 30mg q6h with ultimate transition to long-acting OR he may not need diltiazem at all; monotherapy with meto may suffice #COPD - -no exacerbation at this time -Dugladys PRN -Continue Trelegy #Type 2 Diabetes mellitus - controlled - -Stopped Jardiance due to CHLOE -HbA1C 6.7% -continue NovoLog SSI #Hyperlipidemia - -Continue atorvastatin #Chronic gout - -allopurinol held at [facility], uric acid 7.1 -resumed at lower dose/renal dosing (50mg q48h) #AISHA - -cont home BIPAP 17 HS and naps -blend O2 into the BIPAP as needed VTE Prophylaxis - Eliquis 5mg BID cont PT,OT pt's daughter/ updated at bedside yesterday -made Dr Lema and case management aware of their request for outpatient HD to be in [facility] dispo [facility] for rehab - probably next week offered 2nd opinion re: right hip-- patient & family to think about it I asked him today if he wanted the 2nd opinion and still holding off on such Admission and Anticipated Discharge Date Admission Date: January 06, 2025 Subjective no new events overnight had HD today - 4 liters UF removed tolerated such during my visit wound care was present and exchanged his wound vac he was standing for much of the visit today & denied any dyspnea being out of bed and denied dizziness tele - a.fib, rates <100 Review of Systems Review of Systems: CV - no chest pain pulm - no dyspnea or cough GI - no pain gen - eating well psych - in good spirits Physical Exam Physical Exam: gen - standing then sitting at side of bed, looks well today neck - no JVD mouth - MMM heart - irregularly irregular, s1 s2, 1/6 systolic murmur LLSB/axillary region; rate <100 lungs - decreased BS bases RLL>LLL, mild crackles b/l, no wheeze, no increased work of breathing abd - soft, NT, BS+, ND ext - trace edema shins/feet b/l; edema of arms resolved vascular - right tunneled HD catheter in place - clean/dry psych - a/o x 3 Results & Data Results & Data Vital Signs (Past 12 Hours) Vital Signs Temp Pulse Pulse Pulse Resp BP BP 01/24/25 19:00 36.5 C 73 18 110/68 01/24/25 15:01 36.5 C 76 18 96/54 L 01/24/25 14:29 01/24/25 13:31 36.5 C 81 106/67 01/24/25 13:28 36.5 C 88 18 01/24/25 13:07 77 01/24/25 13:00 68 112/71 01/24/25 12:30 66 110/72 01/24/25 12:00 67 113/69 01/24/25 11:30 80 96/65 L 01/24/25 11:00 67 106/69 01/24/25 10:30 62 100/69 01/24/25 10:00 57 L 98/66 L 01/24/25 09:51 64 99/65 L 01/24/25 09:46 36.6 C 80 BP Pulse Ox O2 Del Method O2 Flow Rate 01/24/25 19:00 100 Nasal Cannula 01/24/25 15:01 95 High Flow Nasal Cannula 6 01/24/25 14:29 High Flow Nasal Cannula 6 01/24/25 13:31 01/24/25 13:28 102/66 97 High Flow Nasal Cannula 6 01/24/25 13:07 01/24/25 13:00 01/24/25 12:30 01/24/25 12:00 01/24/25 11:30 01/24/25 11:00 01/24/25 10:30 01/24/25 10:00 01/24/25 09:51 01/24/25 09:46 Laboratory Results Laboratory Results - last 24 hr 01/23/25 01/24/25 01/24/25 20:11 05:27 07:04 Sodium 136 Potassium 4.3 Chloride 105 Carbon Dioxide 26 Anion Gap 5 BUN 15 Creatinine 2.27 H Est Cr Clr Drug Dosing 39.4 eGFR 30.09 BUN/Creatinine Ratio 6.6 L Glucose 82 POC Glucose 101 H 73 Calcium 8.4 L 01/24/25 01/24/25 13:30 16:13 Sodium Potassium Chloride Carbon Dioxide Anion Gap BUN Creatinine Est Cr Clr Drug Dosing eGFR BUN/Creatinine Ratio Glucose POC Glucose 103 H 177 H Calcium PG Care Time/CCT Total # of Minutes Spent Total Time Spent with Patient: Total time spent is greater than 50% in coordination of care (as documented) at patient's floor/unit and/or counseling patient: Coding Level of Care Code 51534 SUB INP/OBS CARE 2/35MIN Diagnoses CHLOE (acute kidney injury) N17.9 Uremia N19 Acute on chronic heart failure with preserved ejection fraction I50.33 Prosthetic joint infection T84.50XA Staphylococcus aureus bacteremia R78.81; B95.61 AISHA treated with BiPAP G47.33 Abscess of sacrum M46.28 Chronic anemia D64.9 Hematuria R31.9 Proteinuria R80.9
[2025-01-25 06:11] LABS: Hematocrit (blood only) 30.3 % (42.0-52.0); Hemoglobin 9.1 g/dL (14.0-18.0); Mean Corpuscular Hemoglobin 31.3 pg (25.0-34.0); Mean Corpuscular Volume 104.1 fL (80.0-100.0); Platelet Count 254 K/uL (130-400); RDW Standard Deviation 77.4 fL (36.4-46.3); Red Blood Count 2.91 M/uL (4.70-6.10); White Blood Count 5.16 K/ul (4.8-10.8)
[2025-01-25 06:29] LABS: Anion Gap 4.0 (3-11); Blood Urea Nitrogen 19.0 mg/dl (6-23); Calcium 8.5 mg/dl (8.6-10.3); Carbon Dioxide 28.0 mmol/L (21-32); Chloride 103.0 mmol/L (98-107); Creatinine Clr Calc Pharmacy 37.1 ml/min; Glucose 78.0 mg/dl (70-99(Fasting)); Potassium 4.6 mmol/L (3.5-5.1); Sodium 135.0 mmol/L (136-145)
--- NOTE | 2025-01-25 08:43 | Nephrology Progress Note ---
Date of Service January 25, 2025 Assessment & Plan (1) CHLOE (acute kidney injury): Plan: * Oliguric CHLOE. Nephrology evaluation to date has revealed granular casts in the urine suggestive of ATN and low C3 suggestive of infectious glomerulonephritis. Hematuria and pyuria likely a result of indwelling Watson catheter. 01/06/25 renal US revealed atrophic R kidney 7.0 cm, L 11.6 cm. No mass, stone or hydronephrosis. No skin rash or eosinophilia suggestive of a llergic drug reaction * UF w/dialysis this hospitalization has been 36 L. CXR this am is improved but patient remains on O2 at 3 L/min NC. LE swelling has improved but patient still has serous drainage through the skin. Will plan HD today and tomorrow for ongoing UF and hope to rest patient on Tuesday * Patient is oliguric. Bumex has been stopped * Will provide midodrine 5 mg po prior to each HD treatment for BP support * Low C3 is concerning for infectious GN. Frailty and anticoagulation preclude renal biopsy. * Patient is scheduled for [facility] TTS at 6:45 am following discharge (2) Acute respiratory failure with hypoxia: Plan: * CXR film reviewed today. Less pulmonary congestion. Bilateral effusions nearly resolved (3) Staphylococcus aureus bacteremia: Plan: * Remains on Cefazolin dosing for IHD. (4) Chronic anemia: Plan: * Hgb 9.1 * 01/22/25 iron sat 14%, ferritin 152 * Will administer venofer and epogen w/ HD tomorrow (5) Chronic atrial fibrillation: Plan: * Eliquis renally dosed restarted 01/16/25. * Remains on metoprolol for rate control * Now on IV diltiazem q6 hrs. Will hold dose prior to HD today Admission and Anticipated Discharge Date Admission Date: January 06, 2025 Subjective Mr. Fermin was evaluated in his hospital room. He was dialyzed yesterday for 4 L UF without complication. This morning he was in no distress but continues to require O2 at 3L/min NC. LE swelling is now 2+ pitting but patient still has serous fluid weeping from the skin Review of Systems Constitutional: no fever Eyes: no problem reported Ear, Nose, Mouth, Throat: no problem reported Respiratory: no cough and no dyspnea Cardiovascular: no chest pain and no palpitations Gastrointestinal: no abdominal pain, no nausea, no vomiting and no di arrhea/loose stools Physical Exam Constitutional: + frail appearing; not in distress Eyes: PERRL, conjunctivae normal, anicteric sclerae ENMT: external ear and nose normal, oropharynx normal Neck: trachea midline, no thyromegaly Respiratory: able to speak in complete sentences; no respiratory distress Auscultation: + rales Cardiovascular: Rate/Rhythm: regular rate, + tachycardic and + irregularly irregular Extremities: + edema (2+ pretibial edema w/ weeping lesions) Gastrointestinal (Abdomen): normal bowel sounds, soft, nontender, no hepatosplenomegaly Musculoskeletal: Extremities: no cyanosis and no clubbing Skin: no rashes, warm and dry Neurologic: no focal motor deficits Results & Data Vital Signs (Past 12 Hours) Vital Signs Temp Pulse Pulse Pulse Resp BP BP 01/25/25 07:12 36.4 C L 63 18 113/68 01/25/25 03:15 36.5 C 82 18 111/74 01/24/25 22:55 36.4 C L 74 18 102/68 01/24/25 21:33 98 H 01/24/25 21:15 85 114/54 L 01/24/25 21:00 Pulse Ox O2 Del Method O2 Flow Rate 01/25/25 07:12 100 High Flow Nasal Cannula 6 01/25/25 03:15 100 BiPAP 01/24/25 22:55 98 BiPAP 01/24/25 21:33 01/24/25 21:15 95 BiPAP 3 01/24/25 21:00 BiPAP 6 Laboratory Results Laboratory Results - last 24 hr 01/24/25 01/24/25 01/24/25 13:30 16:13 20:11 WBC RBC Hgb Hct MCV MCH MCHC RDW Std Deviation RDW Coeff of Marce Plt Count MPV Absolute Nucleated RBC Nucleated RBC % (auto) Sodium Potassium Chloride Carbon Dioxide Anion Gap BUN Creatinine Est Cr Clr Drug Dosing eGFR BUN/Creatinine Ratio Glucose POC Glucose 103 H 177 H 76 Calcium 01/24/25 01/25/25 01/25/25 21:14 05:33 07:11 WBC 5.16 RBC 2.91 L Hgb 9.1 L Hct 30.3 L MCV 104.1 H MCH 31.3 MCHC 30.0 L RDW Std Deviation 77.4 H RDW Coeff of Marce 20.0 H Plt Count 254 MPV 10.1 Absolute Nucleated RBC 0.03 Nucleated RBC % (auto) 0.6 Sodium 135 L Potassium 4.6 Chloride 103 Carbon Dioxide 28 Anion Gap 4 BUN 19 Creatinine 2.18 H Est Cr Clr Drug Dosing 37.1 eGFR 31.58 BUN/Creatinine Ratio 8.7 L Glucose 78 POC Glucose 124 H 82 Calcium 8.5 L PG Care Time/CCT Total # of Minutes Spent Total Time Spent with Patient: 50 minutes provided to review progress notes, laboratory results, interview and examine patient, contact HD on-call RN and enter orders into EMR, order venofer and epogen, order am labs, discuss POC with patient, review case management recommendations, update medical record Coding Level of Care Code 11425 SUB INP/OBS CARE 350MIN Diagnoses CHLOE (acute kidney injury) N17.9 Acute respiratory failure with hypoxia J96.01 Staphylococcus aureus bacteremia R78.81; B95.61 Chronic anemia D64.9 Chronic atrial fibrillation I48.20
--- NOTE | 2025-01-25 08:54 | XRay Report ---
EXAM: XR chest 1V portable CLINICAL HISTORY: CHF TECHNIQUE: X-ray image of the chest obtained in AP projection. COMPARISON: Prior X-ray dated 01/20/2025. FINDINGS: Right port cath catheter with tip at cavoatrial junction (Unchanged). Pulmonary Parenchyma: OBX.5.1OBX.5.1.1 Regression of the air space opacities in the bilateral mid /OBX.5.1.1OBX.5.1.2 lower lung zones./OBX.5.1.2/OBX.5.1 Still noted yet regressed obliteration of both costophrenic angles Heart and Mediastinum: OBX.5.1OBX.5.1.1 Mild cardiomegaly /OBX.5.1.1OBX.5.1.2 aortic knob calcifications (Unchanged)./OBX.5.1.2/OBX.5.1 No mediastinal widening or masses. No hilar or mediastinal lymphadenopathy. Bony Thorax: Bony thorax appears intact without fractures or deformities. Degenerative changes of the scanned spine (unchanged). Degenerative changes of both acromioclavicular joints (unchanged). Soft Tissues: EKG leads projected over the chest wall. Otherwise, the soft tissues overlying the chest wall are unremarkable. IMPRESSION: 1. Right port cath with tip at cavoatrial junction (Unchanged). OBX.5.1OBX.5.1.12. Regression of the bilateral mid /OBX.5.1.1OBX.5.1.2 lower lung zones air space opacities./OBX.5.1.2/OBX.5.1 3. Regression of the bilateral obliteration of the costophrenic angles. Electronically signed by Fidel Everett 01-25-2025 08:54 AM
[2025-01-25] MEDS ORDERED: SODIUM CHLORIDE 0.9% 1,000 ML IV PRN ×2 (09:57→09:59)
[2025-01-25] MEDS: MIDODRINE HCL 2.5 MG TAB PO STA (10:16)
[2025-01-25] MEDS: EPOETIN ALFA 10,000 UNITS/ML VIAL IV ONE (11:50)
[2025-01-25] MEDS: IRON SUCROSE 200 MG in SYRINGE 0 ML IV ONE (11:50)
[2025-01-25] MEDS: EUCERIN CR 120 GM JAR EXT SCH (17:58)
--- NOTE | 2025-01-25 19:07 | Hospitalist Progress Note ---
Date of Service January 25, 2025 Assessment & Plan (1) CHLOE (acute kidney injury): (2) Uremia: (3) Acute on chronic heart failure with preserved ejection fraction: (4) Prosthetic joint infection: (5) Staphylococcus aureus bacteremia: (6) AISHA treated with BiPAP: (7) Abscess of sacrum: (8) Chronic anemia: (9) Hematuria: (10) Proteinuria: Plan 69yo male with recent hospitalization for MSSA bacteremia (12/05 to 12/25) 2nd to infected right hip prosthesis. Presented from [facility] rehab due to leg swelling, hypoxia and shortness of breath. #CHLOE/acute renal failure - ongoing, with no renal recovery thus far - -baseline Cr ~1.4 to 1.5 -hospital d/c on 12/25/24 -- Cr was 2 -upon presentation 01/06/25 his Cr was 2.65 -Cr remained >3 with very high BUN levels and uremic symptoms throughout this stay -despite supportive care there was no improvement in UOP or his BUN/Cr -temporary HD catheter placed 01/12/[address] Keyes with first session on 01/12 -temporary line & permcath placed 01/16/[address] Gonzalez, vascular surgery -today was his 12th HD session; tolerating them well -uremia resolved, fluid status almost back to dry weight/baseline, mental status normalized -etiology of CHLOE -- uncertain -patient with cirrhotic appearing liver on imaging in November -urine Na level was 89 which makes hepatorenal syndrome unlikely (typically quite low with HRS) -urine Cr 18.5 -FeNa very high - suggestive of ATN -AIN possible from IV antibiotics but less likely (no rash, no eosinophilia, etc) -recent complement levels were low which might suggest post- infectious GN in the setting of his MSSA bacteremia/infected right hip -complements rechecked and again were low -recent u/a with blood/protein which may also suggest GN -may need kidney bx at some point but deferred at this time -appreciate nephrology assistance -BMP am -of note - remains bumex IV BID at this time - can stop -making <200cc/day based on his average over the last 1-2 weeks -wolfe has been removed -to have HD tomorrow 01/26, then will likely skip Tuesday, and resume next week - 3 days/week schedule at that time? #acute metabolic encephalopathy - resolved - -was 2nd to uremia #acute on chronic heart failure with preserved ejection fraction with resulting acute hypoxic/hypercapnic respiratory failure - -CHLOE/ARF the largest culprit in his volume overloaded state -diastolic CHF, hypoalbuminemia, +/- cirrhosis also likely contributed to volume overload -cont HD for volume control #right-sided pleural effusion - -s/p thoracentesis with 800ml removed -transudative fluid, however culture grew staph haemolyticus -pulmonary felt this was likely a contaminant as the original cell counts and Lites' Criteria pointed towards transudative fluid rather than exudative -he is already on IV ancef which would have covered this organism if truly pathogenic #Left lower extremity ulcer on raza - -local wound care with Aquacel Ag + ABDs/kerlix -appreciate wound care assistance #Sacral abscess - sebaceous cyst - -s/p I & D and removal of the cyst by Dr Nesbitt -woundvac in place; cont exchanges by wound care #Staph aureus bacteremia - -dx last admission in November 2024 -source - infected right THR -due to medical complexity and other factors, orthopedics recommended no explantation of right hip hardware or I/D procedure -continue cefazolin renally dosed with last date 01/28/25; then pull the RUE PICC line -then cefadroxil for chronic oral suppression -Dr Beltran was consulted again this admission - still no plans for surgical intervention (see his consult note) -ID consult appreciated #BPH with urinary retention - -removed wolfe -continue tamsulosin -previously was making only about 200cc or less per day of urine -bladder scan today <200cc in the bladder -monitor #Nondisplaced right femoral periprosthetic intertrochanteric fracture - -Diagnosed last admission -no surgical Rx needed -WBAT when working with PT/OT #Chronic anemia - -H/H remain acceptable -s/p IV venofer x 5+ doses this admission #Toe ulcers - -cont local wound care #Chronic atrial fibrillation/hypertension - -Xarelto changed to Eliquis 5mg BID -cont metoprolol 75mg BID -consider stopping diltiazem completely #COPD - -no exacerbation at this time -Duonebs PRN -Continue Trelegy #Type 2 Diabetes mellitus - controlled - -Stopped Jardiance due to CHLOE -HbA1C 6.7% -continue NovoLog SSI but has only needed 4 units of novolog since 01/21/25 #Hyperlipidemia - -Continue atorvastatin #Chronic gout - -allopurinol held at [facility], uric acid 7.1 -resumed at lower dose/renal dosing (50mg q48h) #AISHA - -cont home BIPAP HS and naps -blend O2 into the BIPAP as needed VTE Prophylaxis - Eliquis 5mg BID cont PT,OT pt's daughter/ updated at bedside today dispo - [facility] for rehab - probably early next week will ultimately do outpatient HD in [place] Admission and Anticipated Discharge Date Admission Date: January 06, 2025 Subjective tolerated HD again today although had low BP upon return to his room -4.5 L UF removed during HD today no dizziness, however, continues to eat/drink well denies significant right hip pain c/o dry skin arms/legs no dyspnea during the visit I turned him down to 1.5 L NC O2 and sats stayed 94% on such tele - a.fib, rates <100 Review of Systems Review of Systems: gen - no fevers cv - no cp, edema of arms/legs resolved, no orthopnea pulm - no dyspnea or JERONIMO Physical Exam Physical Exam: gen - laying in bed, best he has looked in several weeks neck - no JVD mouth - MMM heart - irregularly irregular, s1 s2, 1/6 systolic murmur LLSB/axillary region; rate <100 lungs - decreased BS bases RLL>LLL, mild crackles b/l persist; no wheeze, no increased work of breathing abd - soft, NT, BS+, ND ext - nearly resolved edema shins/feet b/l; edema of arms resolved vascular - right tunneled HD catheter in place - clean/dry skin - dry skin legs/arms psych - a/o x 3 Results & Data Results & Data Vital Signs (Past 12 Hours) Vital Signs Temp Pulse Pulse Pulse Resp BP BP 01/25/25 15:33 36.7 C 95 H 22 01/25/25 14:40 36.5 C 77 112/73 01/25/25 14:32 67 01/25/25 14:00 76 124/71 01/25/25 13:30 68 113/67 01/25/25 13:00 73 112/77 01/25/25 12:30 78 125/89 01/25/25 12:00 63 112/74 01/25/25 11:30 68 106/75 01/25/25 11:00 61 121/52 L 01/25/25 10:55 67 108/68 01/25/25 10:52 36.4 C L 71 01/25/25 08:45 01/25/25 07:12 36.4 C L 63 18 113/68 BP Pulse Ox O2 Del Method O2 Flow Rate 01/25/25 15:33 91/54 L 96 Nasal Cannula 3 01/25/25 14:40 01/25/25 14:32 01/25/25 14:00 01/25/25 13:30 01/25/25 13:00 01/25/25 12:30 01/25/25 12:00 01/25/25 11:30 01/25/25 11:00 01/25/25 10:55 01/25/25 10:52 01/25/25 08:45 High Flow Nasal Cannula 3 01/25/25 07:12 100 High Flow Nasal Cannula 6 Laboratory Results Laboratory Results - last 24 hr 01/24/25 01/24/25 01/25/25 20:11 21:14 05:33 WBC 5.16 RBC 2.91 L Hgb 9.1 L Hct 30.3 L MCV 104.1 H MCH 31.3 MCHC 30.0 L RDW Std Deviation 77.4 H RDW Coeff of Marce 20.0 H Plt Count 254 MPV 10.1 Absolute Nucleated RBC 0.03 Nucleated RBC % (auto) 0.6 Sodium 135 L Potassium 4.6 Chloride 103 Carbon Dioxide 28 Anion Gap 4 BUN 19 Creatinine 2.18 H Est Cr Clr Drug Dosing 37.1 eGFR 31.58 BUN/Creatinine Ratio 8.7 L Glucose 78 POC Glucose 76 124 H Calcium 8.5 L 01/25/25 01/25/25 07:11 16:05 WBC RBC Hgb Hct MCV MCH MCHC RDW Std Deviation RDW Coeff of Marce Plt Count MPV Absolute Nucleated RBC Nucleated RBC % (auto) Sodium Potassium Chloride Carbon Dioxide Anion Gap BUN Creatinine Est Cr Clr Drug Dosing eGFR BUN/Creatinine Ratio Glucose POC Glucose 82 153 H Calcium PG Care Time/CCT Total # of Minutes Spent Total Time Spent with Patient: Total time spent is greater than 50% in coordination of care (as documented) at patient's floor/unit and/or counseling patient: Coding Level of Care Code 19424 SUB INP/OBS CARE 2MIN Diagnoses CHLOE (acute kidney injury) N17.9 Uremia N19 Acute on chronic heart failure with preserved ejection fraction I50.33 Prosthetic joint infection T84.50XA Staphylococcus aureus bacteremia R78.81; B95.61 AISHA treated with BiPAP G47.33 Abscess of sacrum M46.28 Chronic anemia D64.9 Hematuria R31.9 Proteinuria R80.9
[2025-01-26] MEDS ORDERED: SODIUM CHLORIDE 0.9% 1,000 ML IV PRN (07:00)
[2025-01-26 07:14] LABS: Hematocrit (blood only) 29.2 % (42.0-52.0); Hemoglobin 9.1 g/dL (14.0-18.0); Mean Corpuscular Hemoglobin 31.9 pg (25.0-34.0); Mean Corpuscular Volume 102.5 fL (80.0-100.0); Platelet Count 242 K/uL (130-400); RDW Standard Deviation 75.2 fL (36.4-46.3); Red Blood Count 2.85 M/uL (4.70-6.10); White Blood Count 5.06 K/ul (4.8-10.8)
[2025-01-26 07:50] LABS: Anion Gap 6.0 (3-11); Blood Urea Nitrogen 20.0 mg/dl (6-23); Calcium 8.8 mg/dl (8.6-10.3); Carbon Dioxide 27.0 mmol/L (21-32); Chloride 100.0 mmol/L (98-107); Creatinine Clr Calc Pharmacy 38.1 ml/min; Glucose 69.0 mg/dl (70-99(Fasting)); Potassium 4.5 mmol/L (3.5-5.1); Sodium 133.0 mmol/L (136-145)
[2025-01-26] MEDS: MIDODRINE HCL 2.5 MG TAB PO ONE (08:13)
--- NOTE | 2025-01-26 11:07 | Nephrology Progress Note ---
Date of Service January 26, 2025 Assessment & Plan (1) CHLOE (acute kidney injury): (2) Acute respiratory failure with hypoxia: (3) Staphylococcus aureus bacteremia: (4) Chronic anemia: (5) Proteinuria: (6) Hematuria: Plan 69-year-old gentleman with recent admission for sepsis with MSSA bacteremia and right septic hip joint, has been on IV cefazolin, admitted with progressive shortness of breath, volume overload, pulmonary congestion and CHLOE with significantly elevated BUN and creatinine. Renal ultrasound unremarkable. Urinalysis with proteinuria, microscopic hematuria but no bacteriuria. Volume status slightly improved although continues to be volume overloaded and specially with right-sided pleural effusion and pulmonary congestion. Acute kidney injury could be secondary to ATN, intravascular volume depletion with hypoalbuminemia, possibility for sepsis related GN remains as complements were quite low during last admission. Started on dialysis on 01/12/2025 for significant generalized volume overload and respiratory distress. Since then has been having pretty much [id number] dialysis and high ultrafiltration and almost more than 4 L negative. Continues to be volume overloaded in between dialysis. --Dialysis for 4 hours today, aim for UF around 4.5 L. --Waiting on rehab and then setting up outpatient dialysis at [facility] dialysis center --On Neupogen, received Venofer. --Dose medications for eGFR less than 15. --Continue antibiotic as per ID recommendation. Admission and Anticipated Discharge Date Admission Date: January 06, 2025 Kasia Leung was seen and evaluated during hemodialysis this morning. He reports overall feeling well. Tolerating dialysis, tolerating UF goal about 4 L, blood pressure staying stable, received midodrine prior to dialysis. Review of Systems Review of Systems: Detailed review of system was done and pertinent positives and negatives are mentioned above. Physical Exam Constitutional: WD/WN, vitals as above + ill appearing; no acute distress Eyes: + anicteric sclerae Neck: normal visual inspection Respiratory: Auscultation: + diminished lung sounds and + rales Cardiovascular: Rate/Rhythm: regular rate and regular rhythm Heart Sounds: normal S1 and normal S2 Extremities: + edema (trace) Skin: + turgor decreased Neurologic: no focal motor deficits Psychiatric: Orientation: alert and oriented x 3 Affect: euthymic affect Results & Data Vital Signs (Past 12 Hours) Vital Signs Temp Pulse Pulse Resp BP BP Pulse Ox 01/26/25 09:07 36.4 C L 85 01/26/25 08:04 36.7 C 79 22 103/67 99 01/26/25 07:45 01/26/25 03:13 37.0 C 89 18 107/68 100 O2 Del Method O2 Flow Rate 01/26/25 09:07 01/26/25 08:04 Nasal Cannula 3 01/26/25 07:45 High Flow Nasal Cannula 3 01/26/25 03:13 BiPAP PG Care Time/CCT Total # of Minutes Spent Total Time Spent with Patient: Total time spent is greater than 50% in coordination of care (as documented) at patient's floor/unit and/or counseling patient: Coding Level of Care Code 71351 SUB INP/OBS CARE 2/35MIN Diagnoses CHLOE (acute kidney injury) N17.9 Acute respiratory failure with hypoxia J96.01 Staphylococcus aureus bacteremia R78.81; B95.61 Chronic anemia D64.9 Proteinuria R80.9 Hematuria R31.9
[2025-01-26] MEDS: IRON SUCROSE 200 MG in SYRINGE 0 ML IV ONE (12:08)
[2025-01-26] MEDS: EPOETIN ALFA 10,000 UNITS/ML VIAL IV ONE (12:08)
--- NOTE | 2025-01-26 16:49 | Hospitalist Progress Note ---
Date of Service January 26, 2025 Assessment & Plan (1) CHLOE (acute kidney injury): (2) Uremia: (3) Acute on chronic heart failure with preserved ejection fraction: (4) Prosthetic joint infection: (5) Staphylococcus aureus bacteremia: (6) AISHA treated with BiPAP: (7) Abscess of sacrum: (8) Chronic anemia: (9) Hematuria: (10) Proteinuria: Plan 69yo male with recent hospitalization for MSSA bacteremia (12/05 to 12/25) 2nd to infected right hip prosthesis. Presented from [facility] rehab due to leg swelling, hypoxia and shortness of breath. #CHLOE/acute renal failure - ongoing, with no renal recovery thus far - -baseline Cr ~1.4 to 1.5 -hospital d/c on 12/25/24 -- Cr was 2 -upon presentation 01/06/25 his Cr was 2.65 -Cr remained >3 with very high BUN levels and uremic symptoms throughout this stay -despite supportive care there was no improvement in UOP or his BUN/Cr -temporary HD catheter placed 01/12/[address] Keyes with first session on 01/12 -temporary line & permcath placed 01/16/[address] Gonzalez, vascular surgery -today was his 13th HD session; tolerating them well; had 5 liters of UF removed today w/o incident -uremia resolved, fluid status - looks euvolemic today; mental status normalized -etiology of CHLOE -- uncertain -patient with cirrhotic appearing liver on imaging in November -urine Na level was 89 which makes hepatorenal syndrome unlikely (typically quite low with HRS) -urine Cr 18.5 -FeNa very high - suggestive of ATN -AIN possible from IV antibiotics but less likely (no rash, no eosinophilia, etc) -recent complement levels were low which might suggest post- infectious GN in the setting of his MSSA bacteremia/infected right hip -complements rechecked and again were low -recent u/a with blood/protein which may also suggest GN -may need kidney bx at some point but deferred at this time -appreciate nephrology assistance -of note - -previously making <200cc/day of urine based on his average over the last 1-2 weeks prior to wolfe discontinuation -wolfe has been removed as of 01/25 -no HD planned for Tuesday, 01/27 -resume HD next week - 3 days/week schedule at that time? #acute metabolic encephalopathy - resolved - -was 2nd to uremia #acute on chronic heart failure with preserved ejection fraction with resulting acute hypoxic/hypercapnic respiratory failure - -CHLOE/ARF the largest culprit in his volume overloaded state -diastolic CHF, hypoalbuminemia, +/- cirrhosis also likely contributed to volume overload -cont HD for volume control #right-sided pleural effusion - -s/p thoracentesis with 800ml removed -transudative fluid, however culture grew staph haemolyticus -pulmonary felt this was likely a contaminant as the original cell counts and Lites' Criteria pointed towards transudative fluid rather than exudative -he is already on IV ancef which would have covered this organism if truly pathogenic -effusion on exam seems mild at most #Left lower extremity ulcer on raza - -local wound care with Aquacel Ag + ABDs/kerlix -appreciate wound care assistance #Sacral abscess - sebaceous cyst - -s/p I & D and removal of the cyst by Dr Nesbitt -woundvac in place; cont exchanges by wound care #Staph aureus bacteremia - -dx last admission in November 2024 -source - infected right THR -due to medical complexity and other factors, orthopedics recommended no explantation of right hip hardware or I/D procedure -continue cefazolin renally dosed with last date 01/28/25; then pull the RUE PICC line -then cefadroxil for chronic oral suppression -Dr Beltran was consulted again this admission - still no plans for surgical i ntervention (see his consult note) -ID consult appreciated #BPH with urinary retention - -removed wolfe -continue tamsulosin -previously was making only about 200cc or less per day of urine -last bladder scan showed <200cc in the bladder -monitor; he may only void every other day or less #Nondisplaced right femoral periprosthetic intertrochanteric fracture - -Diagnosed last admission -no surgical Rx needed -WBAT when working with PT/OT #Chronic anemia - -H/H remain acceptable -s/p IV venofer x 5+ doses this admission #Toe ulcers - -cont local wound care #Chronic atrial fibrillation/hypertension - -Xarelto changed to Eliquis 5mg BID -cont metoprolol 75mg BID -stop diltiazem completely and see how rates and BPs do off of such #COPD - -no exacerbation at this time -Duonebs PRN -Continue Trelegy #Type 2 Diabetes mellitus - controlled - -Stopped Jardiance due to CHLOE -HbA1C 6.7% -continue NovoLog SSI but has only needed 4 units of novolog since 01/21/25 -can likely d/c novolog #Hyperlipidemia - -Continue atorvastatin #Chronic gout - -allopurinol held at [facility], uric acid 7.1 -resumed at lower dose/renal dosing (50mg q48h) #AISHA - -cont home BIPAP HS and naps -blend O2 into the BIPAP as needed VTE Prophylaxis - Eliquis 5mg BID cont PT,OT pt's daughter/ updated at bedside yesterday dispo - [facility] for rehab - probably early next week will ultimately do outpatient HD in [place] Admission and Anticipated Discharge Date Admission Date: January 06, 2025 Subjective saw Mr Fermin on HD today he had 5 liters of UF removed with stable BPs during the session feeling good no dyspnea no cough no wheezing eating well no right hip pain no new complaints tele - a.fib, rates mostly <100 Review of Systems Review of Systems: CV - no orthopnea, edema all resolved x 4 exts; no chest pain; no PND GI - no abd pain pulm - no JERONIMO neuro - no dizziness Physical Exam Physical Exam: gen - laying in bed, on the HD machine, looks good neck - no JVD mouth - MMM heart - irregularly irregular, s1 s2, 1/6 systolic murmur LLSB/axillary region lungs - decreased BS bases RLL>LLL, no wheeze, no increased work of breathing abd - soft, NT, BS+, ND ext - <1+ edema of right raza; no edema of left leg vascular - right tunneled HD catheter in place - clean/dry; pulses b/l feet 2+ psych - a/o x 3 Results & Data Results & Data Vital Signs (Past 12 Hours) Vital Signs Temp Pulse Pulse Resp BP BP BP 01/26/25 16:24 99 H 01/26/25 16:07 36.7 C 73 16 90/56 L 01/26/25 13:35 36.4 C L 83 112/68 01/26/25 13:00 98 H 110/71 01/26/25 12:30 93 H 117/77 01/26/25 12:00 98 H 115/86 01/26/25 11:30 84 128/82 01/26/25 11:00 83 111/76 01/26/25 10:30 78 118/76 01/26/25 10:00 74 119/74 01/26/25 09:30 83 112/78 01/26/25 09:14 78 111/69 01/26/25 09:07 36.4 C L 85 01/26/25 08:04 36.7 C 79 22 103/67 01/26/25 07:45 01/26/25 07:30 67 Pulse Ox O2 Del Method O2 Flow Rate 01/26/25 16:24 01/26/25 16:07 95 Nasal Cannula 01/26/25 13:35 01/26/25 13:00 01/26/25 12:30 01/26/25 12:00 01/26/25 11:30 01/26/25 11:00 01/26/25 10:30 01/26/25 10:00 01/26/25 09:30 01/26/25 09:14 01/26/25 09:07 01/26/25 08:04 99 Nasal Cannula 3 01/26/25 07:45 High Flow Nasal Cannula 3 01/26/25 07:30 Laboratory Results Laboratory Results - last 24 hr 01/25/25 01/26/25 01/26/25 19:48 06:41 07:32 WBC 5.06 RBC 2.85 L Hgb 9.1 L Hct 29.2 L MCV 102.5 H MCH 31.9 MCHC 31.2 L RDW Std Deviation 75.2 H RDW Coeff of Marce 19.9 H Plt Count 242 MPV 9.8 Absolute Nucleated RBC 0.04 Nucleated RBC % (auto) 0.8 Sodium 133 L Potassium 4.5 Chloride 100 Carbon Dioxide 27 Anion Gap 6 BUN 20 Creatinine 2.32 H Est Cr Clr Drug Dosing 38.1 eGFR 29.31 BUN/Creatinine Ratio 8.6 L Glucose 69 L POC Glucose 135 H 79 Calcium 8.8 01/26/25 01/26/25 13:44 16:27 WBC RBC Hgb Hct MCV MCH MCHC RDW Std Deviation RDW Coeff of Marce Plt Count MPV Absolute Nucleated RBC Nucleated RBC % (auto) Sodium Potassium Chloride Carbon Dioxide Anion Gap BUN Creatinine Est Cr Clr Drug Dosing eGFR BUN/Creatinine Ratio Glucose POC Glucose 82 148 H Calcium PG Care Time/CCT Total # of Minutes Spent Total Time Spent with Patient: Total time spent is greater than 50% in coordination of care (as documented) at patient's floor/unit and/or counseling patient: Coding Level of Care Code 97773 SUB INP/OBS CARE 2/35MIN Diagnoses CHLOE (acute kidney injury) N17.9 Uremia N19 Acute on chronic heart failure with preserved ejection fraction I50.33 Prosthetic joint infection T84.50XA Staphylococcus aureus bacteremia R78.81; B95.61 AISHA treated with BiPAP G47.33 Abscess of sacrum M46.28 Chronic anemia D64.9 Hematuria R31.9 Proteinuria R80.9
--- NOTE | 2025-01-27 11:28 | Nephrology Progress Note ---
Date of Service January 27, 2025 Assessment & Plan (1) CHLOE (acute kidney injury): (2) Acute respiratory failure with hypoxia: (3) Staphylococcus aureus bacteremia: (4) Chronic anemia: (5) Proteinuria: (6) Hematuria: Plan 69-year-old gentleman with recent admission for sepsis with MSSA bacteremia and right septic hip joint, has been on IV cefazolin, admitted with progressive shortness of breath, volume overload, pulmonary congestion and CHLOE with significantly elevated BUN and creatinine. Renal ultrasound unremarkable. Urinalysis with proteinuria, microscopic hematuria but no bacteriuria. Volume status slightly improved although continues to be volume overloaded and specially with right-sided pleural effusion and pulmonary congestion. Acute kidney injury could be secondary to ATN, intravascular volume depletion with hypoalbuminemia, possibility for sepsis related GN remains as complements were quite low during last admission. Started on dialysis on 01/12/2025 for significant generalized volume overload and respiratory distress. Since then has been having pretty much [id number]-hoiz dialysis and high ultrafiltration and almost more than 4 L negative. Continues to be volume overloaded in between dialysis. Has been anuric last few days and diuretics stopped. --Dialysis for 4 hours tomorrow, aim for UF 3 to 4 L as tolerated. --Midodrine prior to dialysis. --Waiting on rehab and then setting up outpatient dialysis at [facility] dialysis center --On [facility], received Venofer. --Dose medications for eGFR less than 15. --Continue antibiotic as per ID recommendation. Admission and Anticipated Discharge Date Admission Date: January 06, 2025 Kasia Leung was seen and evaluated this morning. He reports overall feeling well. Had dialysis yesterday, had 4.6 L UF. Blood pressure staying relatively stable. Denies shortness of breath. Does not make urine anymore Review of Systems Review of Systems: Detailed review of system was done and pertinent positives and negatives are mentioned above. Physical Exam Constitutional: WD/WN, vitals as above + ill appearing; no acute distress Eyes: + anicteric sclerae Neck: normal visual inspection Respiratory: Auscultation: + diminished lung sounds and + rales Cardiovascular: Rate/Rhythm: regular rate and regular rhythm Heart Sounds: normal S1 and normal S2 Extremities: + edema (trace) Skin: + turgor decreased Neurologic: no focal motor deficits Psychiatric: Orientation: alert and oriented x 3 Affect: euthymic affect Results & Data Vital Signs (Past 12 Hours) Vital Signs Temp Pulse Pulse Resp BP Pulse Ox O2 Del Method 01/27/25 10:05 81 01/27/25 07:45 Room Air 01/27/25 07:17 36.5 C 85 16 116/70 96 High Flow Nasal Cannula 01/27/25 04:12 36.6 C 82 15 116/77 95 Room Air 01/26/25 23:51 36.2 C L 75 18 107/67 98 BiPAP O2 Flow Rate 01/27/25 10:05 01/27/25 07:45 01/27/25 07:17 3 01/27/25 04:12 01/26/25 23:51 PG Care Time/CCT Total # of Minutes Spent Total Time Spent with Patient: Total time spent is greater than 50% in coordination of care (as documented) at patient's floor/unit and/or counseling patient: Coding Level of Care Code 97293 SUB INP/OBS CARE 2/35MIN Diagnoses CHLOE (acute kidney injury) N17.9 Acute respiratory failure with hypoxia J96.01 Staphylococcus aureus bacteremia R78.81; B95.61 Chronic anemia D64.9 Proteinuria R80.9 Hematuria R31.9
--- NOTE | 2025-01-27 18:00 | Hospitalist Progress Note ---
Date of Service January 27, 2025 Assessment & Plan (1) CHLOE (acute kidney injury): (2) Uremia: (3) Acute on chronic heart failure with preserved ejection fraction: (4) Prosthetic joint infection: (5) Staphylococcus aureus bacteremia: (6) AISHA treated with BiPAP: (7) Abscess of sacrum: (8) Chronic anemia: (9) Hematuria: (10) Proteinuria: Plan 69yo male with recent hospitalization for MSSA bacteremia (12/05 to 12/25) 2nd to infected right hip prosthesis. Presented from [facility] rehab due to leg swelling, hypoxia and shortness of breath. #CHLOE/acute renal failure - ongoing, with no renal recovery thus far - -baseline Cr ~1.4 to 1.5 -hospital d/c on 12/25/24 -- Cr was 2 -upon presentation 01/06/25 his Cr was 2.65 -Cr remained >3 with very high BUN levels and uremic symptoms throughout this stay -despite supportive care there was no improvement in UOP or his BUN/Cr -temporary HD catheter placed 01/12/[address] Keyes with first session on 01/12 -temporary line & permcath placed 01/16/[address] Gonzalez, vascular surgery -today was his 13th HD session; tolerating them well; had 5 liters of UF removed today w/o incident -uremia resolved, fluid status - looks euvolemic today; mental status normalized -etiology of CHLOE -- uncertain -patient with cirrhotic appearing liver on imaging in November -urine Na level was 89 which makes hepatorenal syndrome unlikely (typically quite low with HRS) -urine Cr 18.5 -FeNa very high - suggestive of ATN -AIN possible from IV antibiotics but less likely (no rash, no eosinophilia, etc) -recent complement levels were low which might suggest post- infectious GN in the setting of his MSSA bacteremia/infected right hip -complements rechecked and again were low -recent u/a with blood/protein which may also suggest GN -may need kidney bx at some point but deferred at this time -appreciate nephrology assistance -of note - -previously making <200cc/day of urine based on his average over the last 1-2 weeks prior to wolfe discontinuation -wolfe has been removed as of 01/25 -no HD planned for Tuesday, 01/27 -resume HD next week - 3 days/week schedule at that time - tue/tue/tuesday? -BMP am tomrorow #acute metabolic encephalopathy - resolved - -was 2nd to uremia #acute on chronic heart failure with preserved ejection fraction with resulting acute hypoxic/hypercapnic respiratory failure - -CHLOE/ARF the largest culprit in his volume overloaded state -diastolic CHF, hypoalbuminemia, +/- cirrhosis also likely contributed to volume overload -cont HD for volume control #right-sided pleural effusion - -s/p thoracentesis with 800ml removed -transudative fluid, however culture grew staph haemolyticus -pulmonary felt this was likely a contaminant as the original cell counts and Lites' Criteria pointed towards transudative fluid rather than exudative -he is already on IV ancef which would have covered this organism if truly pathogenic -effusion on exam seems mild at most #Left lower extremity ulcer on raza - -local wound care with Aquacel Ag + ABDs/kerlix -appreciate wound care assistance #Sacral abscess - sebaceous cyst - -s/p I & D and removal of the cyst by Dr Nesbitt -woundvac in place; cont exchanges by wound care #Staph aureus bacteremia - -dx last admission in November 2024 -source - infected right THR -due to medical complexity and other factors, orthopedics recommended no explantation of right hip hardware or I/D procedure -continue cefazolin renally dosed with last date tomorrow, 01/28/25; then pull the RUE PICC line -then cefadroxil for chronic oral suppression -Dr Beltran was consulted again this admission - still no plans for surgical intervention (see his consult note) -ID consult appreciated #BPH with urinary retention - -removed wolfe -continue tamsulosin -previously was making only about 200cc or less per day of urine -last bladder scan showed <200cc in the bladder -monitor; he may only void every other day or less #Nondisplaced right femoral periprosthetic intertrochanteric fracture - -Diagnosed last admission -no surgical Rx needed -WBAT when working with PT/OT #Chronic anemia - -H/H remain acceptable -s/p IV venofer x 5+ doses this admission #Toe ulcers - -cont local wound care #Chronic atrial fibrillation/hypertension - -Xarelto changed to Eliquis 5mg BID -cont metoprolol 75mg BID -stop diltiazem completely and see how rates and BPs do off of such #COPD - -no exacerbation at this time -Duonebs PRN -Continue Trelegy #Type 2 Diabetes mellitus - controlled - -Stopped Jardiance due to CHLOE -HbA1C 6.7% -continue NovoLog SSI but has only needed 4 units of novolog since 01/21/25 #Hyperlipidemia - -Continue atorvastatin #Chronic gout - -allopurinol held at [facility], uric acid 7.1 -resumed at lower dose/renal dosing (50mg q48h) #AISHA - -cont home BIPAP HS and naps -blend O2 into the BIPAP as needed VTE Prophylaxis - Eliquis 5mg BID cont PT,OT pt's daughter/ updated at bedside about every 2-3 days dispo - [facility] for rehab - probably Tuesday or Tuesday will ultimately do outpatient HD in [place] Admission and Anticipated Discharge Date Admission Date: January 06, 2025 Subjective no events feels well tele with a.fib, rates acceptable eating well in good spirits dry skin on legs/arms better with eucerin Review of Systems Review of Systems: CV - no chest pain pulm - O2 weaned off, no dyspnea, no JERONIMO GI - no abd pain or N/V; moving bowels Physical Exam Physical Exam: gen - sitting at side of bed, looks great, doing crosswords neck - no JVD mouth - MMM heart - irregularly irregular, s1 s2, 1/6 systolic murmur LLSB/axillary region lungs - minimal rales L base, otherwise CTA b/l; no wheeze abd - soft, NT, BS+, ND ext - trace edema of right raza; no edema of left leg/raza vascular - right tunneled HD catheter in place - clean/dry; pulses b/l feet 2+; PICC line clean RUE psych - a/o x 3 Results & Data Results & Data Vital Signs (Past 12 Hours) Vital Signs Temp Pulse Pulse Resp BP Pulse Ox O2 Del Method 01/27/25 16:38 88 01/27/25 15:09 36.7 C 78 18 111/71 98 Nasal Cannula 01/27/25 11:30 36.6 C 73 22 96/62 L 96 Nasal Cannula 01/27/25 10:05 81 01/27/25 07:45 Room Air 01/27/25 07:17 36.5 C 85 16 116/70 96 High Flow Nasal Cannula O2 Flow Rate 01/27/25 16:38 01/27/25 15:09 1 01/27/25 11:30 3 01/27/25 10:05 01/27/25 07:45 01/27/25 07:17 3 Laboratory Results Laboratory Results - last 48 hr 01/26/25 01/26/25 01/26/25 13:44 16:27 19:53 WBC RBC Hgb Hct MCV MCH MCHC RDW Std Deviation RDW Coeff of Marce Plt Count MPV Sodium Potassium Chloride Carbon Dioxide Anion Gap BUN Creatinine Est Cr Clr Drug Dosing eGFR BUN/Creatinine Ratio Glucose POC Glucose 82 148 H 104 H Calcium C-Reactive Protein 01/27/25 01/27/25 01/27/25 07:22 11:23 16:29 WBC RBC Hgb Hct MCV MCH MCHC RDW Std Deviation RDW Coeff of Marce Plt Count MPV Sodium Potassium Chloride Carbon Dioxide Anion Gap BUN Creatinine Est Cr Clr Drug Dosing eGFR BUN/Creatinine Ratio Glucose POC Glucose 79 96 97 Calcium C-Reactive Protein PG Care Time/CCT Total # of Minutes Spent Total Time Spent with Patient: Total time spent is greater than 50% in coordination of care (as documented) at patient's floor/unit and/or counseling patient: Coding Level of Care Code 66893 SUB INP/OBS CARE 03/17MIN Diagnoses CHLOE (acute kidney injury) N17.9 Uremia N19 Acute on chronic heart failure with preserved ejection fraction I50.33 Prosthetic joint infection T84.50XA Staphylococcus aureus bacteremia R78.81; B95.61 AISHA treated with BiPAP G47.33 Abscess of sacrum M46.28 Chronic anemia D64.9 Hematuria R31.9 Proteinuria R80.9
[2025-01-28 07:15] LABS: Hematocrit (blood only) 32.0 % (42.0-52.0); Hemoglobin 9.9 g/dL (14.0-18.0); Mean Corpuscular Hemoglobin 31.9 pg (25.0-34.0); Mean Corpuscular Volume 103.2 fL (80.0-100.0); Platelet Count 256 K/uL (130-400); RDW Standard Deviation 75.0 fL (36.4-46.3); Red Blood Count 3.10 M/uL (4.70-6.10); White Blood Count 5.32 K/ul (4.8-10.8)
[2025-01-28 07:46] LABS: Anion Gap 7.0 (3-11); Blood Urea Nitrogen 39.0 mg/dl (6-23); Calcium 8.8 mg/dl (8.6-10.3); Carbon Dioxide 26.0 mmol/L (21-32); Chloride 99.0 mmol/L (98-107); Creatinine Clr Calc Pharmacy 32.0 ml/min; Glucose 72.0 mg/dl (70-99(Fasting)); Potassium 4.7 mmol/L (3.5-5.1); Sodium 132.0 mmol/L (136-145)
[2025-01-28 08:05] VITALS: RESP 18
--- NOTE | 2025-01-28 10:32 | Nephrology Progress Note ---
Date of Service January 28, 2025 Assessment & Plan (1) CHLOE (acute kidney injury): (2) Acute respiratory failure with hypoxia: (3) Staphylococcus aureus bacteremia: (4) Chronic anemia: (5) Proteinuria: (6) Hematuria: Plan 69-year-old gentleman with recent admission for sepsis with MSSA bacteremia and right septic hip joint, has been on IV cefazolin, admitted with progressive shortness of breath, volume overload, pulmonary congestion and CHLOE with significantly elevated BUN and creatinine. Renal ultrasound unremarkable. Urinalysis with proteinuria, microscopic hematuria but no bacteriuria. Volume status slightly improved although continues to be volume overloaded and specially with right-sided pleural effusion and pulmonary congestion. Acute kidney injury could be secondary to ATN, intravascular volume depletion with hypoalbuminemia, possibility for sepsis related GN remains as complements were quite low during last admission. Started on dialysis on 01/12/2025 for significant generalized volume overload and respiratory distress. Since then has been having pretty much [id number] dialysis and high ultrafiltration and almost more than 4 L negative. Continues to be volume overloaded in between dialysis. Has been anuric last few days and diuretics stopped. --plan for Dialysis this afternoon, then continue MWF, Ok to be discharged after HD. --Midodrine prior to dialysis. --Waiting on rehab and then setting up outpatient dialysis at [facility] dialysis center --On epogen, received Venofer. --Dose medications for eGFR less than 15. --Continue antibiotic as per ID recommendation. Admission and Anticipated Discharge Date Admission Date: January 06, 2025 Kasia Leung was seen and evaluated this morning. He reports overall feeling well. Blood pressure staying relatively stable. Denies shortness of breath. Had some UO this morning. Review of Systems Review of Systems: Detailed review of system was done and pertinent positives and negatives are mentioned above. Physical Exam Constitutional: WD/WN, vitals as above + ill appearing; no acute distress Eyes: + anicteric sclerae Neck: normal visual inspection Respiratory: Auscultation: + diminished lung sounds and + rales Cardiovascular: Rate/Rhythm: regular rate and regular rhythm Heart Sounds: normal S1 and normal S2 Extremities: + edema (trace) Gastrointestinal (Abdomen): Inspection/Auscultation: abdomen normal to inspection Percussion/Palpation: abdomen soft; abdomen nontender Skin: + turgor decreased and + erythema Neurologic: no focal motor deficits Psychiatric: Orientation: alert and oriented x 3 Affect: euthymic affect Results & Data Vital Signs (Past 12 Hours) Vital Signs Temp Pulse Pulse Pulse Resp BP Pulse Ox 01/28/25 08:04 36.7 C 73 18 114/63 93 01/28/25 07:00 81 01/28/25 07:00 01/28/25 03:00 36.5 C 60 20 123/78 99 01/27/25 22:49 36.7 C 81 18 113/67 92 O2 Del Method 01/28/25 08:04 Room Air 01/28/25 07:00 01/28/25 07:00 Room Air 01/28/25 03:00 CPAP 01/27/25 22:49 Room Air PG Care Time/CCT Total # of Minutes Spent Total Time Spent with Patient: Total time spent is greater than 50% in coordination of care (as documented) at patient's floor/unit and/or counseling patient: Coding Level of Care Code 42155 SUB INP/OBS CARE 2/35MIN Diagnoses CHLOE (acute kidney injury) N17.9 Acute respiratory failure with hypoxia J96.01 Staphylococcus aureus bacteremia R78.81; B95.61 Chronic anemia D64.9 Proteinuria R80.9 Hematuria R31.9
[2025-01-28 11:24] VITALS: TEMP 97.7
[2025-01-28] MEDS: MIDODRINE HCL 2.5 MG TAB PO STA (13:32)
[2025-01-28 16:46] VITALS: BP 123/79; O2SAT 94
[2025-01-28 17:57] VITALS: PULSE 85
--- NOTE | 2025-01-28 17:58 | Discharge Summary ---
Discharge Summary Date of Service date of admission - January 06, 2025 date of discharge - January 28, 2025 Principal Dx & Hospital Course #1 = Principal Diagnosis (1) CHLOE (acute kidney injury): (2) Uremia: (3) Acute on chronic heart failure with preserved ejection fraction: (4) Prosthetic joint infection: (5) Staphylococcus aureus bacteremia: (6) AISHA treated with BiPAP: (7) Abscess of sacrum: (8) Chronic anemia: (9) Hematuria: (10) Proteinuria: Plan 69yo male with recent hospitalization for MSSA bacteremia (12/05 to 12/25) 2nd to infected right hip prosthesis. Presented from [facility] rehab due to leg swelling, hypoxia and shortness of breath. #CHLOE/acute renal failure - ongoing, with no renal recovery thus far - now on hemodialysis: -baseline Creatinine ~1.4 to 1.5 -Creatinine was 2 upon hospital d/c on 12/25/24 -upon presentation on 01/06/25 his Creatinine was 2.65 -Creatinine worsened & remained >3 with very high BUN levels and uremic symptoms early in the stay -despite supportive care there was no improvement in UOP or his BUN/Cr -he had evidence of severe volume overload & pulmonary edema -[facility] Nephrology was consulted early in this hospitalization and managed his CHLOE/ARF and dialysis needs -temporary HD catheter placed 01/12/[address] Forrest Keyes with first HD session on 01/12/25 -temporary line removed & tunneled permcath placed 01/16/[address] Trevor Gonzalez, vascular surgery -while hospitalized he underwent 14 HD sessions with most sessions obtaining 4+ liters of ultrafiltrate -he was premedicated with midodrine to prevent intra-dialysis hypotension -with serial HD sessions his uremia resolved and his fluid status improved tremendously with nearly 50 liters of fluid removed -O2 was weaned off and he appeared euvolemic at discharge -etiology of CHLOE -- uncertain -patient with a cirrhotic-appearing liver on imaging in November 2024 -urine Na level was 89 which makes hepatorenal syndrome unlikely (typically it is quite low with HRS) -urine Cr 18.5 -FeNa very high - suggestive of ATN -AIN possible from IV antibiotics but less likely (no rash, no eosinophilia, etc) -recent complement levels were low which might suggest post- infectious GN in the setting of his MSSA bacteremia/infected right hip -complements rechecked and again were low -recent u/a with blood/protein which may also suggest GN -may need kidney biopsy at some point but deferred at this time -of note - -wolfe catheter removed 01/25/25 -previously making <200cc/day of urine based on his average over the last 1-2 weeks prior to wolfe discontinuation -suspect he might spontaneously void 1x/day or even less -upon transition to [facility] will likely have an HD schedule of Tuesday/Tuesday/Tuesday -preparations have been made for patient to ultimately have his usual HD sessions in [place] -he should follow-up with [facility] Nephrology after discharge for any kidney disease / dialysis needs #acute metabolic encephalopathy - resolved: -2nd to uremia -mental status improved following multiple serial HD sessions -can't rule out that hypoxia and hypercapnia also contributed to encephalopathy as well -either way mental status was largely back to normal at discharge #acute on chronic heart failure with preserved ejection fraction with resulting acute hypoxic/hypercapnic respiratory failure: -CHLOE/ARF the largest culprit in his volume overloaded state -diastolic CHF, hypoalbuminemia, +/- cirrhosis also likely contributed to volume overload -cont HD for volume control #right-sided pleural effusion: -s/p thoracentesis with 800ml removed early in the stay -transudative fluid by Lites' criteria; however - culture grew staph haemolyticus -pulmonary felt the staph was likely a contaminant as the original cell counts and Lites' Criteria pointed towards transudative fluid rather than exudative -he was already on IV ancef for his prior MSSA bacteremia/prosthetic joint infection which would have covered this organism if truly pathogenic -the remainder of his effusions improved while here with serial HD sessions #Left lower extremity ulcer on raza: -cont local wound care with Aquacel Ag + ABDs/kerlix #Sacral abscess/sebaceous cyst: -s/p I & D and removal of the cyst by Dr Tariq Nesbitt -following surgery a woundvac was placed to promote healing -he will need ongoing woundvac exchanges wound care while at [facility] and s stephen f/u with the [facility] clinic for surveillance #Staph aureus bacteremia / MSSA infected right total hip replacement: -diagnosed during his [facility] admission in November 2024 -source - infected right THR -due to medical complexity and other factors, orthopedics on multiple occasions recommended NO explantation of right hip hardware or I/D procedure -he completed a 6-week course of IV cefazolin while here with final day of Rx being 01/28/25 -RUE PICC line was removed on day of discharge -he will need to remain on cefadroxil 500mg PO HS life-time for chronic suppression -ID was consulted while here and assisted with antibiotic management -CRP now is 1.6, down from peak of 13 earlier this year #BPH with urinary retention: -removed wolfe several days prior to discharge -following wolfe discontinuation he did void at least twice before transferring to [facility] -continue tamsulosin -previously was making only about 200cc or less per day of urine following initiation of dialysis -moving forward he may only void once a day or less #Nondisplaced right femoral periprosthetic intertrochanteric fracture: -Diagnosed last admission 11/2024 -no surgical Rx needed -WBAT when working with PT/OT #Chronic anemia: -H/H remained acceptable while here; discharge hemoglobin 9.9 -s/p IV venofer x 5+ doses this admission #Toe ulcers: -cont local wound care #Chronic atrial fibrillation/hypertension: -Xarelto changed to Eliquis 5mg BID -cont metoprolol tartrate 75mg BID -cont Cardizem CD 120mg qam #COPD: -no exacerbation while hospitalized -Duonebs PRN -Continue Trelegy #Type 2 Diabetes mellitus - controlled: -Stopped Jardiance due to CHLOE -HbA1C 6.7% -continue NovoLog SSI but has only needed 4 units of novolog since 01/21/25 based on pharmacy records #Hyperlipidemia: -Continue atorvastatin #Chronic gout: -cont allopurinol at lower dose/renal dosing of 50mg q48h #AISHA: -cont home BIPAP HS and naps -blend O2 into the BIPAP as needed VTE Prophylaxis - Eliquis 5mg BID During the stay received PT and OT services. Both advised rehab post-d/c. Patient is transferring back to [facility] in [place]. Notes For Next Care Provider Medication Changes From Visit 1. d/c Xarelto; changed to Eliquis 5mg BID (for a.fib) 2. Cefadroxil 500mg HS - indefinitely/life-long 3. Midodrine prior to HD sessions 4. Cardizem CD 120mg daily (dose reduced) Admission HPI Per Admitting Provider Madhu Fermin is a 69 year old male who presents to the ER from [facility] due to hypervolemia. He was admitted to [facility] from December 05 to December 25, 2024 treated for MSSA bacteremia. Unclear where primary infection occurred but suspect either from pneumonia or right hip fluid collection after extensive workup. Blood cultures cleared on December 07. On discussion with orthopedics due to high risk operation and likely prosthetic hip infection which was implanted many years ago decided against operating at that time. He was discharged on intravenous cefazolin which to continue until January 28 2025. Initially on that hospitalization he was hypervolemic and responded to intravenous Lasix 80mg IV twice a day however further attempts at diuretics led to bump in Cr and holding those diuretics led to improvement of Cr although he was not back to his baseline on discharge but trending in the right direction and he was previously steady on Lasix 40mg oral. Unknown exact diuretic regimen at [facility] but he reports wolfe catheter was inserted a few days ago and started on Lasix 40mg IV twice a day which looks like it was increased to this dose on January 04. He was also started on Sodium chloride 1g PO daily on December 28 although not clear from available notes what this was treating he was hyponatremic on discharge although this was suspected to be due to diuretics rather than SIADH and was trending up. The patient is unsure on what medications were changed or when but notes his leg swelling and shortness of breath sudden started getting much worse a few days ago. No fever, chills or cough. Discharge Exam gen - sitting at side of bed, looks great neck - no JVD mouth - MMM heart - irregularly irregular, s1 s2, 1/6 systolic murmur LLSB/axillary region lungs - minimal rales L base, otherwise CTA b/l; no wheeze abd - soft, NT, BS+, ND ext - trace edema of right raza; no edema of left leg/raza vascular - tunneled HD catheter in place right upper chest - clean/dry; pulses b/l feet 2+; PICC line right arm has been removed psych - a/o x 3 Discharge Plan Discharge Items Patient Disposition: Transfer Inpatient Rehab Fac Reason For Visit: Volume overload, shortness of breath, hypoxia Discharge Diagnosis: 1. acute kidney injury/ATN - etiology uncertain - now on hemodialysis 2. volume overload, hypoxia, shortness of breath due to #1 - MUCH improved 3. 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 previous bacteremia due to staph aureus 5. permanent atrial fibrillation 6. gout 7. COPD 8. hypertension 9. hyperlipidemia 10. sebaceous cyst of the buttock/sacral ulcer - removal of cyst by Dr Tariq Nesbitt on 01/08/25; now with woundvac 11. type 2 diabetes - hemoglobin a1c 6.7% in 11/2024 12. acute metabolic encephalopathy - resolved 13. venous stasis ulcer left raza 14. BPH with previous urinary retention and need for wolfe; wolfe now removed & voiding about 1x/day 15. AISHA - on BIPAP 16. anemia - discharge hemoglobin 9.9 Activity: Resume your previous activity Non-emergency contact: Primary Care Provider and Specialist Call non-emergency contact if: you have any medication questions, your symptoms worsen, your pain is not controlled, your pain is worsening, your pain is unusual for you, your pain is concerning for you, you have a fever, your wound has increased redness, your wound has increased drainage and your wound pain has increased Follow-up/Referrals: Nolan Soria MD [Primary Care Provider] - J Carlos Nesbitt DO [Surgeon] - (Please call to schedule follow up in the office in 2 weeks ) Yasir Beltran MD [Physician] - (within 2 weeks; recheck of right hip ) Soco Vargas MD [Physician] - (follow-up with infectious diseases for routine monitoring of right hip infection ) Diet: Carb Consistent or DM2 and Low Sodium (2gm) Fluids: 1500ml (6 cups) Addtl Attending Provider Instructions: Recommendations - 1. check BSGs ac/hs for the next 1-2 days. If BSGs are within normal limits can likely d/c them. He has required minimal insulin therapy over the last 10 days. 2. protect right sided permcath at all times with clean dressing. 3. hemodialysis 3 days/week. 4. PT/OT - eval and Rx. 5. please perform formal 2-step ambulatory o2 test prior to leaving [facility]. Recent O2 weaned off on 01/26/25. 6. woundvac to buttock region - exchange Tue/Tue/Tuesday. 7. Aquacel Ag with optifoam dressing to left raza venous ulcer per wound care recommendations. 8. will need infectious disease follow-up to monitor chronic right hip infection. 9. BIPAP nightly and with naps - settings It was our pleasure to care for Mr Fermin! -Indio Mae Pending Studies at Discharge: No Stand-Alone Forms: My [facility] Skilled Items Patient informed of condition?: Yes DNR: No Discharge Level of Care: Acute rehab Communicable Disease: No Discharge Prognosis: Stable Lines: None Urinary Catheter: No Medications and DC Order Prescriptions: New cefadroxil 500 mg Capsule 500 mg PO HS Qty: 90 3RF Rx Instructions: start 01/29/25. Eliquis 5 mg Tablet 5 mg PO BID Qty: 60 2RF allopurinol 100 mg Tablet 50 mg PO Q48H Qty: 15 2RF Eucerin Cream 1 applic EXT BID Qty: 454 0RF Rx Instructions: apply to dry skin on arms, legs, etc. midodrine 5 mg tablet 5 mg PO DAILY PRN (Reason: prior to dialysis sessions only) Qty: 30 0RF Rx Instructions: give prior to dialysis sessions only. Continued albuterol sulfate 90 mcg/actuation aerosol powdr breath activated 2 inh inhalation Q4H PRN (Reason: shortness of breath or wheezing) Qty: 1 1RF Trelegy Ellipta 100-62.5-25 mcg blister with device 1 inh inhalation DAILY Qty: 60 11RF atorvastatin 10 mg tablet 10 mg PO QPM Qty: 90 3RF Rx Instructions: take with evening meal for cholesterol (DME) OneTouch Ultra Test Strip See Rx Instructions .ROUTE .COMPLEX Qty: 100 3RF Dose Instruction: USE TO CHECK BLOOD SUGAR ONCE DAILY Rx Instructions: USE TO CHECK BLOOD SUGAR ONCE DAILY E11.9 (DME) lancets Misc See Rx Instructions .Route Qty: 100 3RF Rx Instructions: One Touch Delica Lancet 33guage, test daily, E11.21 (DME) oxygen See Rx Instructions .Route .MEDSUPPLY Qty: 2 0RF Rx Instructions: As directed tamsulosin 0.4 mg Capsule 0.4 mg PO HS Qty: 30 0RF acetaminophen [Tylenol Extra Strength] 500 mg Tablet 1,000 mg PO Q8H PRN (Reason: Pain) ondansetron 4 mg Tablet,Disintegrating 4 mg PO Q6H PRN (Reason: NAUSEA/VOMITING) Changed diltiazem HCl 120 mg capsule,extended release 24hr 120 mg PO QAM Qty: 30 0RF metoprolol tartrate 75 mg tablet 75 mg PO BID Qty: 60 2RF Discontinued furosemide 80 mg tablet 80 mg PO DAILY Qty: 180 3RF Hold Instructions: Resume on 01/08/25. Hold until told to restart by physician following resolution of acute kidney injury Rx Instructions: ON HOLD Can increase to 80 mg BID as needed for shortness of breath, edema, weight gain. acetaminophen [Tylenol Extra Strength] 500 mg tablet 500 mg PO Q4H PRN (Reason: TEMP >100.5) Rx Instructions: TAke 3 times per day to lessen pain. diclofenac sodium [Voltaren Arthritis Pain] 1 % Gel 4 g EXT QID PRN (Reason: Right knee pain) Qty: 100 0RF cefazolin 2 gram recon soln 2 g IV Q8H furosemide [Lasix] 10 mg/mL Solution 20 mg IV Q12H insulin aspart U-100 [Novolog U-100 Insulin aspart] 100 unit/mL Solution 1 sliding scale dose SUBCUT USEASDIRECTD sodium chloride 0.9 % (flush) [Saline Flush] Syringe 10 ml IV Q12H Rx Instructions: administer before and after IV drug administration as part of [facility] protocol sodium chloride 1,000 mg Tablet,Soluble 1,000 mg PO DAILY Xarelto 15 mg Tablet 15 mg PO DAILY Rx Instructions: must administer with evening meal insulin glargine [Lantus U-100 Insulin] 100 unit/mL solution 5 unit subcut Q12H Discharge Orders: Discharge Order (Routine); Ordered 01/28/25 Ordered By: Indio Mae Admission Data Admit Date/Time: 01/06/25 13:42 Attending Provider: Indio Mae Admit Provider: Indio Carvalho Primary Care Provider: Nolan Soria Other Providers: [facility]; Forrest Keyes; Elsie Potter; J Carlos Nesbitt; Titi Nicolas; Francisco Javier Gonzalez; Rambo Lema; Yasir Beltran; Soco Vargas Other Interventions: Discharge Summary Assessment (RN) Last Done: 01/28/25 17:55 Hospital Stay Data Consultations Consult Nephrology Consult Pulmonology Consult General Surgery Consult Vascular Surgery Consult Orthopedic Surgery Consult Infectious Diseases Wound Care PT, OT Speech therapy Procedures Performed 1. right IJ temporary dialysis catheter - Dr Forrest Keyes 2. Operation Date: 01/16/25 09:00 Exchange of Perm Catheter(Right) - Francisco Javier Gonzalez MD 3. Operation Date: 01/08/25 10:30 Incision and Drainage Sacral Decubitus Ulcer - J Carlos Nesbitt DO 4. hemodialysis x 14 sessions 5. woundvac application to sacral region; numerous exchanges of woundvac 6. right-sided thoracentesis - 01/08/25 - Dr Forrest Keyes Diagnostic Imagining Performed Chest X-Ray 01/06/25 11:25 SINGLE VIEW CHEST CLINICAL HISTORY: Sepsis FINDINGS: An AP, portable, upright chest radiograph is compared to study dated 12/19/2024 and correlated with chest CT dated 12/22/2024. The examination is degraded by portable technique and apical lordotic positioning. A right-sided PICC line is unchanged in position. The heart is enlarged noting atherosclerotic calcification of the thoracic aorta. There is pulmonary vascular congestion with interstitial edema. There are layering pleural effusions with dependent consolidation. Emphysematous changes observed. Calcified granulomas are again noted. No pneumothorax is seen. The skeletal structures are osteopenic. The bony thorax is grossly intact. IMPRESSION: 1. Cardiomegaly and emphysema with evidence of congestive failure and pulmonary edema. 2. Layering pleural effusions with bibasilar consolidation. Radiographic follow- up to resolution is recommended. ACT 112: Negative or not required by law. Electronically signed by: Nolan Danielson M.D. 01/06/2025 11:49 AM Renal Ultrasound 01/06/25 13:39 Exam: Retroperitoneal ultrasound. History: Acute kidney insufficiency. Comparison: December 23, 2024. Findings: Right kidney measures 7.0 x 11.8 x 6.3 cm. No stone, mass or hydronephrosis. At least mild cortical volume loss. Left kidney measures 11.6 x 6.8 x 5.8 cm. This contains a hypoechoic through transmitting 2.1 x 2.0 x 3.1 cm nodule. This does not demonstrate color flow. No solid mass, stone or hydronephrosis. Mild cortical volume loss. Urinary bladder not evaluated on this exam. Technologist reports Wolfe catheter in place. Impression: Mild bilateral cortical volume loss with benign left renal cyst. Otherwise no findings to suggest source for patient's symptoms. Electronically signed by Ronnie Isaacs 01-06-2025 2:36 PM Chest X-Ray 01/08/25 18:32 EXAM: X-ray chest one-view portable CLINICAL HISTORY: Hypoxia PRIORS: Chest CT 12/21/2024, chest radiograph 01/06/2025 TECHNIQUE: Frontal view chest FINDINGS: Lung volumes are diminished. Opacification of the left lower lobe again noted with possible airspace consolidation and moderate pleural effusion. Oval shape well-circumscribed opacity present in the left hemithorax, mid lateral aspect, appearing in the interval and measuring 5.5 cm in craniocaudal dimension. Cardiomediastinal silhouette is enlarged, unchanged. Moderate atherosclerotic disease of the aortic knob. PICC catheter present, unchanged. No radiopaque foreign body. IMPRESSION: Radiographic features favoring volume overload. However, superimposed pneumonia in the right lung base is also on the differential diagnosis, please correlate clinically. New left lung oval-shaped opacification in the mid lateral aspect possibly loculated fluid appearing since the 12/21/2024 CT and more conspicuous when compared to 01/06/2025 due to differences in breath-hold. ACT 112: Positive. There are findings on this examination that require communication between the performing entity and the patient following Patient Test Result Information Act ([place] ACT 112) guidelines. Electronically signed by Fifi Hannon 01-08-2025 7:32 PM Chest X-Ray 01/09/25 10:55 XR chest 1V not portable CLINICAL HISTORY: POST THORACENTESIS COMPARISON STUDY: 01/08/2025 FINDINGS: Stable right PICC. Stable cardiomegaly with mild pulmonary vascular congestion. Stable mild opacity at the left lung base. There is mild opacity at the right lung base with blunting of the right costophrenic angle, improved. No pneumothorax seen. IMPRESSION: No pneumothorax. ACT 112: Negative or not required by law. Electronically signed by: Trevor Arteaga M.D. 01/09/2025 11:16 AM Thoracentesis/Paracentesis US 01/09/25 12:06 IR thoracentesis wo tube US CLINICAL HISTORY: Right-sided pleural effusion COMPARISON STUDY: 01/06/2025 and 12/22/2024 Technique: After the procedure was discussed and questions answered, consent was obtained. Patient was positioned seated upright. Preprocedure ultrasound demonstrates right pleural effusion. The right back was prepped and draped in standard sterile fashion. 1% lidocaine was used for local anesthesia. Under ultrasound guidance, a thoracentesis catheter was advanced to the right pleural effusion from a posterior lower intercostal approach. 800 cc of straw-colored fluid was withdrawn. Catheter was removed. Hemostasis was obtained with manual compression. Sterile dressing was applied. Postprocedure chest x-ray shows no pneumothorax. IMPRESSION: Right thoracentesis. ACT 112: Negative or not required by law. Electronically signed by: Trevor Arteaga M.D. 01/09/2025 11:20 AM Chest X-Ray 01/10/25 17:38 EXAM: X-ray chest one-view portable CLINICAL HISTORY: Hypoxia PRIORS: 01/09/2020 5 plain film, 12/21/[address] TECHNIQUE erect portable frontal FINDINGS: Right sided PICC catheter noted. Chest fairly well expanded. Improved appearance of the right lung base with less opacification. Mild diffuse interstitial changes noted, unchanged. Possible small bilateral pleural effusions, unchanged. Left lateral thorax oval or crescentic shape structure again noted measuring 5.2 cm. No radiopaque foreign body. Heart size unchanged. IMPRESSION: Mildly improved appearance of the right lower lobe with persistent small bilateral pleural effusions and interstitial prominence. Electronically signed by Fifi Hannon 01-10-2025 6:29 PM Chest X-Ray 01/12/25 13:26 EXAM: Radiograph of the Chest 1 View INDICATION: Line placement TECHNIQUE: Frontal view of the chest. Image obtained at 1:40 PM COMPARISON: 01/10/2025 FINDINGS: Lungs and pleural spaces: Stable bilateral airspace consolidation and small pleural effusions. Increased pulmonary vascular congestion. No pneumothorax. Heart: Stable large cardiac shadow. Mediastinum: Normal contour. Bones/joints: No fracture, erosion or dislocation. Soft tissues: No abnormality noted. Tubes, lines and devices: Right peripherally inserted central catheter (PICC) tip in the distal superior vena cava. Right internal jugular central venous catheter tip in the distal superior vena cava. Upper abdomen: No abnormality noted. IMPRESSION: 1. Worsening CHF. 2. Lines and tubes as above. ACT 112: N/A Electronically signed by Carol Rausch 01-12-2025 2:29 PM Chest X-Ray 01/16/25 09:06 XR chest 1V portable CLINICAL HISTORY: CHF, hypoxia COMPARISON STUDY: 01/12/2025 FINDINGS: Interval right dialysis catheter tip is in the SVC. Right PICC line tip is at the cavoatrial junction. There is stable cardiomegaly with pulmonary vascular congestion. Stable small bilateral pleural effusions and lung base consolidation. No pneumothorax. IMPRESSION: CHF with stable pleural effusions and lung base consolidation. ACT 112: Negative or not required by law. Electronically signed by: Trevor Arteaga M.D. 01/16/2025 12:55 PM Chest X-Ray 01/19/25 06:49 EXAM: XR chest 1V portable CLINICAL HISTORY: increased oxygen requirement TECHNIQUE: X-ray image of the chest obtained in 1 frontal projection. COMPARISON: Prior X-ray dated 01/16/2025 for comparison. FINDINGS: Right central venous catheter with tip at cavoatrial junction. Pulmonary Parenchyma: Mild interval progression of air space opacities in right mid, lower zones. Unchanged air space opacities in left mid, lower zones. Unchanged obscured bilateral costophrenic angles likely pleural effusion. Heart and Mediastinum: Mild cardiomegaly. Aortic knob calcifications. No mediastinal widening or masses. No hilar or mediastinal lymphadenopathy. Bony Thorax: Bony thorax appears intact without fractures or deformities. Mild degenerative changes in bilateral shoulder joints. Soft Tissues: Soft tissues overlying the chest wall are unremarkable. IMPRESSION: Right central venous catheter with tip at cavoatrial junction. Mild interval progression of air space opacities in right mid, lower zones. Unchanged air space opacities in left mid, lower zones. Unchanged obscured bilateral costophrenic angles likely pleural effusion. Mild cardiomegaly. Clinical correlation is suggested. Electronically signed by Fidel Everett 01-19-2025 08:32 AM Chest X-Ray 01/20/25 06:00 EXAM: XR chest 1V portable CLINICAL HISTORY: CHF. TECHNIQUE: X-ray image of the chest obtained in AP projection. COMPARISON: Prior X-ray dated 01/19/2025. FINDINGS: Right central venous catheter with tip at cavoatrial junction (Unchanged). Pulmonary Parenchyma: OBX.5.1OBX.5.1.1 Mild improvement in air space opacities in the right mid /OBX.5.1.1OBX.5.1.2 lower lung zones./OBX.5.1.2/OBX.5.1 OBX.5.1OBX.5.1.1 Unchanged air space opacities in the left mid /OBX.5.1.1OBX.5.1.2 lower lung zones./OBX.5.1.2/OBX.5.1 Still noted obliteration of both costophrenic angles Heart and Mediastinum: OBX.5.1OBX.5.1.1 Mild cardiomegaly /OBX.5.1.1OBX.5.1.2 aortic knob calcifications (Unchanged)./OBX.5.1.2/OBX.5.1 No mediastinal widening or masses. No hilar or mediastinal lymphadenopathy. Bony Thorax: Bony thorax appears intact without fractures or deformities. Degenerative changes of the scanned spine (unchanged). Degenerative changes of both acromioclavicular joints (unchanged). Soft Tissues: EKG leads projected over the chest wall. Otherwise, the soft tissues overlying the chest wall are unremarkable. IMPRESSION: 1. Right central venous catheter with tip at cavoatrial junction (Unchanged). OBX.5.1OBX.5.1.12. Mild improvement in air space opacities in the right mid /OBX.5.1.1OBX.5.1.2 lower lung zones./OBX.5.1.2/OBX.5.1 OBX.5.1OBX.5.1.13. Unchanged air space opacities in the left mid /OBX.5.1.1OBX.5.1.2 lower lung zones and ,bilateral pleural effusion./OBX.5.1.2/OBX.5.1 Electronically signed by Fidel Everett 01-20-2025 08:00 AM Chest X-Ray 01/25/25 06:00 EXAM: XR chest 1V portable CLINICAL HISTORY: CHF TECHNIQUE: X-ray image of the chest obtained in AP projection. COMPARISON: Prior X-ray dated 01/20/2025. FINDINGS: Right port cath catheter with tip at cavoatrial junction (Unchanged). Pulmonary Parenchyma: OBX.5.1OBX.5.1.1 Regression of the air space opacities in the bilateral mid /OBX.5.1.1OBX.5.1.2 lower lung zones./OBX.5.1.2/OBX.5.1 Still noted yet regressed obliteration of both costophrenic angles Heart and Mediastinum: OBX.5.1OBX.5.1.1 Mild cardiomegaly /OBX.5.1.1OBX.5.1.2 aortic knob calcifications (Unchanged)./OBX.5.1.2/OBX.5.1 No mediastinal widening or masses. No hilar or mediastinal lymphadenopathy. Bony Thorax: Bony thorax appears intact without fractures or deformities. Degenerative changes of the scanned spine (unchanged). Degenerative changes of both acromioclavicular joints (unchanged). Soft Tissues: EKG leads projected over the chest wall. Otherwise, the soft tissues overlying the chest wall are unremarkable. IMPRESSION: 1. Right port cath with tip at cavoatrial junction (Unchanged). OBX.5.1OBX.5.1.12. Regression of the bilateral mid /OBX.5.1.1OBX.5.1.2 lower lung zones air space opacities./OBX.5.1.2/OBX.5.1 3. Regression of the bilateral obliteration of the costophrenic angles. Electronically signed by Fidel Everett 01-25-2025 08:54 AM Pending Results Patient Have Any Pending Studies at Discharge: No Discharge Instructions Given to Patient (Per Discharging Provider) Recommendations - 1. check BSGs ac/hs for the next 1-2 days. If BSGs are within normal limits can likely d/c them. He has required minimal insulin therapy over the last 10 days. 2. protect right sided permcath at all times with clean dressing. 3. hemodialysis 3 days/week. 4. PT/OT - eval and Rx. 5. please perform formal 2-step ambulatory o2 test prior to leaving [facility]. Recent O2 weaned off on 01/26/25. 6. woundvac to buttock region - exchange Tue/Tue/Tuesday. 7. Aquacel Ag with optifoam dressing to left raza venous ulcer per wound care recommendations. 8. will need infectious disease follow-up to monitor chronic right hip infection. 9. BIPAP nightly and with naps - settings It was our pleasure to care for Mr Fermin! 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
== END 2025-01-28 18:25 | DRG 673 ==
LOC: ED 11:11 → SUATTDRO 13:42 → 2S 13:42
DX: L72.3 Sebaceous cyst; N17.0 Acute kidney failure with tubular necrosis; Z79.01 Long term (current) use of anticoagulants; E87.70 Fluid overload, unspecified; M35.3 Polymyalgia rheumatica; N40.1 Benign prostatic hyperplasia with lower urinary tract symptoms; G93.41 Metabolic encephalopathy; I11.0 Hypertensive heart disease with heart failure; E88.09 Other disorders of plasma-protein metabolism, not elsewhere classified; Z96.0 Presence of urogenital implants; M10.9 Gout, unspecified; R33.9 Retention of urine, unspecified; I48.20 Chronic atrial fibrillation, unspecified; Z88.8 Allergy status to other drugs, medicaments and biological substances; Z83.3 Family history of diabetes mellitus; I50.33 Acute on chronic diastolic (congestive) heart failure; J96.02 Acute respiratory failure with hypercapnia; I95.3 Hypotension of hemodialysis; E11.622 Type 2 diabetes mellitus with other skin ulcer; J91.8 Pleural effusion in other conditions classified elsewhere; E78.5 Hyperlipidemia, unspecified; J96.01 Acute respiratory failure with hypoxia; L97.509 Non-pressure chronic ulcer of other part of unspecified foot with unspecified severity; B95.61 Methicillin susceptible Staphylococcus aureus infection as the cause of diseases classified elsewhere; K74.60 Unspecified cirrhosis of liver; Z82.49 Family history of ischemic heart disease and other diseases of the circulatory system; Z79.899 Other long term (current) drug therapy; L97.929 Non-pressure chronic ulcer of unspecified part of left lower leg with unspecified severity; T84.51XA Infection and inflammatory reaction due to internal right hip prosthesis, initial encounter; G47.33 Obstructive sleep apnea (adult) (pediatric); M97.01XA Periprosthetic fracture around internal prosthetic right hip joint, initial encounter; J98.11 Atelectasis; I27.20 Pulmonary hypertension, unspecified; Z79.51 Long term (current) use of inhaled steroids; Z79.4 Long term (current) use of insulin; Z87.891 Personal history of nicotine dependence; R13.10 Dysphagia, unspecified; J43.9 Emphysema, unspecified; Z96.651 Presence of right artificial knee joint